=== PATIENT | female | born 1955 ===

== ENCOUNTER 2016-07-26 23:16 | Observation (INO) | payer BC, MEDICARE ==
[2016-07-26 23:29] VITALS: BMI 37.8
--- NOTE | 2016-07-26 23:37 | ED PDOC ---
Arrival/HPI - General Chief Complaint: Chest Pain Time Seen by Provider: 07/26/16 23:21 Historian: Patient - History of Present Illness Narrative History of Present Illness (Text): 07/26/16 23:36 Sena Toribio is a 60 year old female, whose past medical history includes bronchial asthma, hypertension, and cholecystectomy, who presents to the ED complaining of chest pain. Patient states she began experiencing mid-sternal chest pain radiating to her back tonight with associated shortness of breath. Patient notes symptoms are still presents, but have improved. Patient denies any fever, chills, nausea, vomiting, diarrhea, urinary symptoms, back pain, neck pain, headache, dizziness, or any other complaints. Time/Duration: Other (tonight) Symptom Onset: Gradual Symptom Course: Unchanged Activities at Onset: Rest, Light Context: Home Past Medical History - Provider Review Nursing Documentation Reviewed: Yes - Cardiac Hx Hypertension: Yes - Pulmonary Hx Asthma: Yes - Neurological Hx Neurological Disorder: No - HEENT Hx HEENT Disorder: No - Renal Hx Renal Disorder: No - Endocrine/Metabolic Hx Endocrine Disorders: No - Hematological/Oncological Hx Blood Disorders: No - Integumentary Hx Dermatological Disorder: No - Musculoskeletal/Rheumatological Hx Musculoskeletal Disorders: No - Gastrointestinal Hx Gastrointestinal Disorders: No - Genitourinary/Gynecological Hx Genitourinary Disorders: No - Psychiatric Hx Psychophysiologic Disorder: Yes Hx Anxiety: Yes Hx Bipolar Disorder: Yes Hx Substance Use: No - Surgical History Hx Section: Yes Hx Cholecystectomy: Yes Hx Orthopedic Surgery: Yes (beatrice ankles) - Anesthesia Hx Anesthesia: No Family/Social History - Physician Review Nursing Documentation Reviewed: Yes Family/Social History: No Known Family HX Smoking Status: Light Smoker < 10 Cigarettes Daily Hx Alcohol Use: No Hx Substance Use: No Allergies/Home Meds Allergies/Adverse Reactions: Allergies No Known Allergies Allergy (Verified 07/26/16 23:26) Home Medications: Home Meds Medication Instructions Recorded Confirmed Benztropine [Benztropine Mesylate] 0.5 mg PO QAM 07/26/16 07/26/16 Budesonide/Formoterol Fumarate 1 inhaler IH PRN PRN 07/26/16 07/26/16 [Symbicort 160-4.5 Mcg Inhaler] DULoxetine [Cymbalta] 60 mg PO QAM 07/26/16 07/26/16 LORazepam [Ativan] 1 mg PO Q6 07/26/16 07/26/16 Levothyroxine [Synthroid] 50 mcg PO DAILY 07/26/16 07/26/16 Pantoprazole Sodium [Protonix] 40 mg PO DAILY 07/26/16 07/26/16 Zolpidem [Ambien] 10 mg PO HS 07/26/16 07/26/16 Review of Systems - Physician Review All systems were reviewed & negative as marked: Yes - Review of Systems Constitutional: Normal. absent: Fevers Eyes: Normal ENT: Normal Respiratory: SOB Cardiovascular: Chest Pain Gastrointestinal: Normal. absent: Abdominal Pain, Diarrhea, Nausea, Vomiting Genitourinary Female: Normal. absent: Dysuria, Frequency, Hematuria, Urine Output Changes Musculoskeletal: Normal. absent: Back Pain, Neck Pain Skin: Normal. absent: Rash Neurological: Normal. absent: Headache, Dizziness Endocrine: Normal Hemo/Lymphatic: Normal Psychiatric: Normal Physical Exam Vital Signs Reviewed: Yes Vital Signs Temp Pulse Pulse Resp BP BP Pulse Ox 07/27/16 12:18 100 H 144/97 H 07/27/16 10:52 93 H 166/81 H 07/27/16 10:32 96 H 16 167/100 H 100 07/27/16 07:40 87 16 151/84 H 97 07/27/16 05:45 81 14 142/74 98 07/27/16 03:10 96 H 16 141/77 98 07/27/16 03:01 91 H 16 98 07/27/16 00:23 90 18 181/105 H 94 L 07/26/16 23:30 88 182/106 H 07/26/16 23:27 98.6 F 102 H 20 182/106 H Temperature: Afebrile Blood Pressure: Hypertensive Pulse: Regular Respiratory Rate: Normal Appearance: Positive for: Well-Appearing, Non-Toxic, Comfortable Pain Distress: None Mental Status: Positive for: Alert and Oriented X 3 - Systems Exam Head: Present: Atraumatic, Normocephalic Pupils: Present: PERRL Extroacular Muscles: Present: EOMI Conjunctiva: Present: Normal Mouth: Present: Moist Mucous Membranes Neck: Present: Normal Range of Motion Respiratory/Chest: Present: Clear to Auscultation, Good Air Exchange. No: Respiratory Distress, Accessory Muscle Use Cardiovascular: Present: Regular Rate and Rhythm, Normal S1, S2. No: Murmurs Abdomen: Present: Normal Bowel Sounds. No: Tenderness, Distention, Peritoneal Signs Back: Present: Normal Inspection Upper Extremity: Present: Normal Inspection. No: Cyanosis, Edema Lower Extremity: Present: Normal Inspection. No: Edema Neurological: Present: GCS=15, CN II-XII Intact, Speech Normal Skin: Present: Warm, Dry, Normal Color. No: Rashes Psychiatric: Present: Alert, Oriented x 3, Normal Insight, Normal Concentration Medical Decision Making ED Course and Treatment: 07/26/16 23:36 Impression: 60 year old female complaining of mid-sternal chest pain and shortness of breath tonight. Plan: -- EKG -- Chest X-ray -- Labs, cardiac enzymes -- Urinalysis -- Reassess and disposition Prior Visits: Notes and results from previous visits were reviewed. Progress Notes: Reviewed EKG, NSR at [address] LVH. Non-specific ST/T wave changes. 07/27/16 00:11 Reviewed radiology, Chest X-ray shows no active disease. 07/27/16 01:[address] Gill, who is aware and agrees with plan. Accepts and states to place pt under Dr. Gonzalez's service. Pt will go to Telemetry observation for chest pain. Pt is no acute distress. Discussed results and hospital observation plan with pt , who is aware and verbalizes understanding. - Lab Interpretations Lab Results: 07/26/16 23:50 07/26/16 23:50 Lab Results 07/27/16 01:55: Urine Color Yellow, Urine Appearance Clear, Urine pH 6.5, Ur Specific [place] 1.015, Urine Protein Negative, Urine Glucose (UA) Negative, Urine Ketones Negative, Urine Blood Negative, Urine Nitrate Negative, Urine Bilirubin Negative, Urine Urobilinogen 0.2, Ur Leukocyte Esterase Negative 07/26/16 23:50: WBC 7.6, RBC 4.81, Hgb 15.0, Hct 43.7, MCV 90.9, MCH 31.2, MCHC 34.3, RDW 13.5, Plt Count 261, MPV 11.4 H, Gran % 67.8, Lymph % (Auto) 23.1, Stanley % (Auto) 7.0 H, Eos % (Auto) 1.7, Baso % (Auto) 0.4, Gran # 5.15, Lymph # 1.8, Stanley # 0.5, Eos # 0.1, Baso # 0.03, Sodium 140, Potassium 3.4 L, Chloride 105, Carbon Dioxide 23, Anion Gap 15, BUN 9, Creatinine 0.5, Est GFR ( Amer) > 60, Est GFR (Non-Af Amer) > 60, Random Glucose 132 H, Calcium 9.0, Magnesium 2.1, Total Bilirubin 0.6, AST 22, ALT 34, Alkaline Phosphatase 103, Lactate Dehydrogenase 481, Total Creatine Kinase 86, Troponin I 0.02, Total Protein 7.4, Albumin 4.1, Globulin 3.4, Albumin/Globulin Ratio 1.2 I have reviewed the lab results: Yes - RAD Interpretation Radiology Orders: 07/26/16 23:37 CHEST PORTABLE [RAD] [employer] Correspondent: ED Physician - EKG Interpretation Interpreted by ED Physician: Yes Type: 12 lead EKG - Medication Orders Current Medication Orders: Benztropine Mesylate (Cogentin) 0.5 mg PO QAM [facility] Last Admin: 07/27/16 10:23 Dose: 0.5 MG Duloxetine HCl (Cymbalta) 60 mg PO QAM [facility] Last Admin: 07/27/16 10:23 Dose: 60 MG Levothyroxine Sodium (Synthroid) 50 mcg PO DAILY [facility] Last Admin: 07/27/16 10:23 Dose: 50 MCG Lorazepam (Ativan) 1 mg PO Q8 KALLI PRN Reason: Protocol Last Admin: 07/27/16 21:17 Dose: 1 MG Behavioural Document 07/27/16 21:17 RR (Rec: 07/27/16 21:17 [place] [facility] [id number] Maintenance Maintenance Dose Yes Re-Assess: Reassess Psych Meds Document 07/27/16 22:17 RR (Rec: 07/27/16 23:01 RR [facility] [id number] Reassess Psych Med Effective Pantoprazole Sodium (Protonix Ec Tab) 40 mg PO 0630 KALLI Zolpidem Tartrate (Ambien) 5 mg PO HS PRN PRN Reason: Insomnia Discontinued Medications Acetaminophen/Butalbital/Caffeine (Fioricet) 2 tab PO STAT STA Stop: 07/27/16 10:37 Last Admin: 07/27/16 10:52 Dose: 2 TAB Albuterol/Ipratropium (Duoneb 3 Mg/0.5 Mg (3 Ml) Ud) 3 ml IH STAT STA Stop: 07/27/16 00:10 Last Admin: 07/27/16 00:16 Dose: 3 ML Albuterol/Ipratropium (Duoneb 3 Mg/0.5 Mg (3 Ml) Ud) Confirm Administered Dose 3 ml .ROUTE .STK-MED ONE Stop: 07/27/16 00:14 Last Admin: 07/27/16 00:16 Dose: Albuterol/Ipratropium (Duoneb 3 Mg/0.5 Mg (3 Ml) Ud) 3 ml IH Q4H PRN PRN Reason: Shortness of Breath Stop: 07/27/16 05:04 Albuterol/Ipratropium (Duoneb 3 Mg/0.5 Mg (3 Ml) Ud) 3 ml IH Q6 KALLI Stop: 07/28/16 00:01 Last Admin: 07/27/16 19:25 Dose: 3 ML Amlodipine Besylate (Norvasc) 10 mg PO STAT STA Stop: 07/27/16 10:39 Last Admin: 07/27/16 10:52 Dose: 10 MG MAR Pulse and Blood Pressure Document 07/27/16 10:52 HI (Rec: 07/27/16 10:52 [id number] Pulse Pulse Rate (60-90) 93 Blood Pressure Blood Pressure (100/60-150/90) 166/81 Aspirin (Ecotrin) 325 mg PO STAT STA Stop: 07/27/16 01:06 Last Admin: 07/27/16 01:35 Dose: 325 MG Potassium Chloride (Potassium Chloride 10 Meq/100 Ml) 100 mls @ 100 mls/hr IVPB Q2H KALLI Stop: 07/27/16 13:29 Last Admin: 07/27/16 16:02 Dose: Not Given Non-Admin Reason: Patient Refused Lorazepam (Ativan) 1 mg PO Q6 KALLI PRN Reason: Protocol Last Admin: 07/27/16 12:23 Dose: 1 MG Behavioural Document 07/27/16 12:23 HI (Rec: 07/27/16 12:23 [id number] Maintenance Maintenance Dose Yes Nonmedicinal Nonmedicinal Interventions Redirect Behavior Behavior for Medication: Anxiety Re-Assess: Reassess Psych Meds Document 07/27/16 13:23 RR (Rec: 07/27/16 23:00 RR [facility] [id number] Reassess Psych Med Effective Nitroglycerin (Nitro-Bid 2% Oint) 1 ea TOP ONCE STA Stop: 07/27/16 01:06 Last Admin: 07/27/16 01:35 Dose: 1 EA Zolpidem Tartrate (Ambien) 10 mg PO HS PRN; Protocol PRN Reason: Insomnia - Scribe Statement The provider has reviewed the documentation as recorded by the Glendy Olson Provider Attestation: All medical record entries made by the Glendy were at my direction and personally dictated by me. I have reviewed the chart and agree that the record accurately reflects my personal performance of the history, physical exam, medical decision making, and the department course for this patient. I have also personally directed, reviewed, and agree with the discharge instructions and disposition. Disposition/Present on Arrival - Present on Arrival Any Indicators Present on Arrival: No History of DVT/PE: No History of Uncontrolled Diabetes: No Urinary Catheter: No History of Decub. Ulcer: No History Surgical Site Infection Following: None - Disposition Have Diagnosis and Disposition been Completed?: Yes Diagnosis: Chest pain Disposition: HOSPITALIZED Disposition Time: 01:00 Condition: FAIR
[2016-07-27] LABS: ADD MANUAL DIFF? NO
[2016-07-27 00:09] LABS: BASO # 0.03 K/mm3 (0.0-2.0); BASO % 0.4 % (0.0-3.0); EOS # 0.1 (0.0-0.7); EOS % 1.7 % (1.5-5.0); GRAN # 5.15 (1.4-6.5); GRAN % 67.8 % (50.0-68.0); HEMATOCRIT 43.7 % (36.0-48.0); LYMPH # 1.8 (1.2-3.4); LYMPH % 23.1 % (22.0-35.0); MEAN CELL VOLUME 90.9 fL (80.0-105.0); MEAN CORPUSCULAR HEMOGLOBIN 31.2 pg (25.0-35.0); MEAN CORPUSCULAR HGB CONC 34.3 g/dl (31.0-37.0); MEAN PLATELET VOLUME 11.4 fl (7.0-11.0); MONO # 0.5 (0.1-0.6); PLATELET COUNT 261 10^3/uL (120.0-450.0); RED CELL DISTRIBUTION WIDTH 13.5 % (11.5-14.5); WHITE BLOOD COUNT 7.6 10^3/ul (4.5-11.0)
[2016-07-27] MEDS ORDERED: Albuterol-Ipratrop 3 mg / 0.5 (3 ml) UD IH STA (00:09)
[2016-07-27] MEDS ORDERED: Albuterol-Ipratrop 3 mg / 0.5 (3 ml) UD ONE (00:13)
[2016-07-27 00:35] LABS: TROPONIN I 0.02 ng/mL
[2016-07-27 00:39] LABS: ALB/GLOB RATIO 1.2 (1.1-1.8); ALKALINE PHOSPHATASE 103 U/L (38-133); ALT/SGPT 34 U/L (7-56); AST/SGOT 22 U/L (15-39); BILIRUBIN,TOTAL 0.6 mg/dL (0.2-1.3); BLOOD UREA NITROGEN 9 mg/dL (7-21); CARBON DIOXIDE 23 mmol/L (21-33); CHLORIDE 105 mmol/L (95-110); GFR AFRICAN-AMERICAN > 60; GLUCOSE,RANDOM 132 mg/dL (70-110); MAGNESIUM 2.1 mg/dL (1.7-2.2); POTASSIUM 3.4 mmol/L (3.6-5.0); SODIUM 140 mmol/L (132-148); TOTAL PROTEIN 7.4 g/dL (5.8-8.3)
[2016-07-27] MEDS ORDERED: Albuterol-Ipratrop 3 mg / 0.5 (3 ml) UD IH PRN (01:03)
[2016-07-27] MEDS ORDERED: Nitroglycerin 2% Ointment Foilpak UD TOP STA (01:05)
[2016-07-27] MEDS ORDERED: Aspirin 325 mg EC Tablets PO STA (01:05)
[2016-07-27 02:10] LABS: PH,URINE 6.5 (4.7-8.0); URINE BILIRUBIN NEGATIVE (NEGATIVE); URINE BLOOD NEGATIVE (NEGATIVE); URINE GLUCOSE (UA) NEGATIVE (NEGATIVE); URINE KETONE NEGATIVE (NEGATIVE); URINE LEUKOCYTE ESTERASE NEGATIVE Leu/uL (NEGATIVE); URINE PROTEIN NEGATIVE mg/dL (<30 mg/dL); URINE UROBILINOGEN 0.2 E.U./dL (<1 E.U./dL)
[2016-07-27 02:15] LABS: URINE APPEARANCE CLEAR (CLEAR); URINE COLOR YELLOW (YELLOW)
--- NOTE | 2016-07-27 09:12 | RAD ---
HISTORY: cp COMPARISON: No prior. FINDINGS: LUNGS: No active pulmonary disease. PLEURA: No significant pleural effusion identified, no pneumothorax apparent. CARDIOVASCULAR: Normal. OSSEOUS STRUCTURES: No significant abnormalities. VISUALIZED UPPER ABDOMEN: Normal. OTHER FINDINGS: None. IMPRESSION: No active disease.
[2016-07-27] MEDS: Levothyroxine 50 MCG TAB PO SCH (10:23)
[2016-07-27] MEDS ORDERED: Apap-Butalbital-Caffeine 325-50-40mg Tab PO STA (10:36)
[2016-07-27] MEDS: Potassium Chloride 10 mEq 100 ML IVPB SCH ×2 (10:52→16:02)
--- NOTE | 2016-07-27 11:56 | CARD ---
APPROVED REPORT EKG Measurement Heart [id number] <Conclusion> Normal sinus rhythm Possible Left atrial enlargement Left ventricular hypertrophy Nonspecific T wave abnormality Prolonged QT Abnormal ECG
[2016-07-27] MEDS: Albuterol-Ipratrop 3 mg / 0.5 (3 ml) UD IH SCH ×2 (13:39→19:25)
[2016-07-27 18:37] VITALS: RESP 18
--- NOTE | 2016-07-27 22:33 | HP ---
HISTORY OF PRESENT ILLNESS: The patient is a 60-year-old who came to Emergency Room because of chest pressure, epigastric discomfort radiating towards her chest, she had a feeling as if she cannot kaleigh the. The patient states she did not eat a heavy meal last night; it included rice and beans. Denies any fever or chills. No history of nausea or vomiting, no history of previous coronary artery disea se. PAST MEDICAL HISTORY: 1. Significant for morbid obesity. 2. Bronchial asthma. 3. Hypertension. 4. Bipolar disorder. PAST SURGICAL HISTORY: Significant for cholecystectomy. ALLERGIES: The patient is not allergic to any medications. MEDICATIONS AT HOME: She is on benztropine 0.5 q.a.m. She is on Symbicort. She is taking Ativan 1 mg q. 6-8 hours, Cymbalta 60 mg daily, Ambien 10 mg at bedtime, Protonix 40 daily, levothyroxine 50 m cg daily. SOCIAL HISTORY: Denies smoking and drinking. REVIEW OF SYSTEMS: Significant for epigastric discomfort, chest discomfort radiating towards back. PHYSICAL EXAMINATION: GENERAL: She is awake and alert, communicative. VITAL SIGNS: She is afebrile, pulse 92, respirations 19, blood pressure . LUNGS: Bilateral fair airflow, no rhonchi or crackle. HEART: S1, S2 audible. No murmur. ABDOMEN: Soft, nontender, no rebound, no guarding. NEUROLOGIC: She is awake and alert, communicative. LABORATORY DATA: WBC 7.6, hemoglobin 15, hematocrit 43, platelets 261. Chemistry: Sodium 140, pota ssium 3.4, chloride 105, CO2 of 23, BUN 9, creatinine 0.5, blood sugar 132. LFTs are within normal l imits. Urinalysis is negative. EKG shows normal sinus rhythm, left atrial enlargement, left ventric ular hypertrophy, prolonged QT. ASSESSMENT: 1. Chest pain seems to be noncardiac. 2. Hypertension. 3. Hyperlipidemia. 4. Morbid obesity. 5. Electrolyte imbalance. 6. Bipolar disorder. PLAN: The patient has been started on her usual baseline medication. Start her on PPI and start her on aspirin. We will follow up serial cardiac enzymes. Cardiology consult by Dr. Givens has been requ ested and she also has some EKG changes that needs to be evaluated. Since she is on multiple psych m edications, I will also request Dr. for evaluation. Andressa Gonzalez MD cc: [id number] TT: 07/27/2016 22:32:12 mn
[2016-07-28] MEDS: Albuterol-Ipratrop 3 mg / 0.5 (3 ml) UD IH SCH (06:07)
[2016-07-28 06:29] LABS: ADD MANUAL DIFF? NO
[2016-07-28] MEDS ORDERED: Pantoprazole 40 mg EC Tab PO SCH (06:30)
[2016-07-28 06:50] LABS: BASO # 0.01 K/mm3 (0.0-2.0); BASO % 0.1 % (0.0-3.0); EOS # 0.1 (0.0-0.7); EOS % 1.7 % (1.5-5.0); GRAN # 6.06 (1.4-6.5); GRAN % 74.7 % (50.0-68.0); HEMATOCRIT 44.1 % (36.0-48.0); LYMPH # 1.4 (1.2-3.4); LYMPH % 17.3 % (22.0-35.0); MEAN CELL VOLUME 91.7 fL (80.0-105.0); MEAN CORPUSCULAR HEMOGLOBIN 30.6 pg (25.0-35.0); MEAN CORPUSCULAR HGB CONC 33.3 g/dl (31.0-37.0); MEAN PLATELET VOLUME 11.2 fl (7.0-11.0); MONO # 0.5 (0.1-0.6); MONO % 6.2 % (1.0-6.0); PLATELET COUNT 273 10^3/uL (120.0-450.0); RED CELL DISTRIBUTION WIDTH 13.7 % (11.5-14.5); WHITE BLOOD COUNT 8.1 10^3/ul (4.5-11.0)
[2016-07-28 08:02] VITALS: BP 163/109; PULSE 89; TEMP 99; O2SAT 97
[2016-07-28 08:04] LABS: ALB/GLOB RATIO 1.4 (1.1-1.8); ALKALINE PHOSPHATASE 113 U/L (38-133); ALT/SGPT 40 U/L (7-56); AST/SGOT 24 U/L (15-39); BILIRUBIN,TOTAL 0.9 mg/dL (0.2-1.3); BLOOD UREA NITROGEN 11 mg/dL (7-21); CALCIUM 9.2 mg/dL (8.4-10.5); CARBON DIOXIDE 24 mmol/L (21-33); CHLORIDE 106 mmol/L (98-107); CHOLESTEROL 258 mg/dL (130-200); GFR AFRICAN-AMERICAN > 60; GLUCOSE,RANDOM 133 mg/dL (70-110); PHOSPHOROUS 3.7 mg/dL (2.5-4.5); POTASSIUM 3.7 mmol/L (3.6-5.0); SODIUM 141 mmol/L (132-148); TOTAL PROTEIN 7.1 g/dL (5.8-8.3); URIC ACID 5.9 mg/dL (2.5-6.2)
[2016-07-28 08:14] LABS: TROPONIN I 0.02 ng/mL
[2016-07-28] MEDS: Levothyroxine 50 MCG TAB PO SCH (09:47)
--- NOTE | 2016-07-28 13:46 | CON ---
DATE: 07/28/2016 HISTORY OF PRESENT ILLNESS: The patient is a 60-year-old female admitted to the medical-ariza rgical department from ER due to a chief complaint of chest pains; found to be of a noncardiac origin . The patient has had a long history of bipolar disorder. I was asked to evaluate the patient. The patient is a reasonably good historian. She has no extreme complaints psychiatrically. The patient states she is treated at a [facility] clinic in [place] and receives Invega 150 mg IM q. 4 weeks. She is due for an injection tomorrow. PAST MEDICAL HISTORY: She has a long history of psychiatric problems. She had many psychiatric hosp italizations - the first in her 20s at a local hospital. Her last hospitalization was ____ for 5 yea rs at [facility]. She was there and states she was not guilty by reason of insanity. She re fuses to go into details. She has had other local psychiatric hospitalizations, but none since that time. The patient's other medical problems include bronchial asthma, hypertension and morbid obesity . PAST SURGICAL HISTORY: The patient has had a cholecystectomy in the past. ALLERGIES: Not allergic to any medications. CURRENT MEDICATIONS AT HOME: Include Symbicort, Cogentin 0.5 mg b.i.d., Ativan 1 mg t.i.d., Cymbalta 60 mg daily, Ambien 10 mg at bedtime, Protonix, levothyroxine. The patient, in addition to Invega, is on Sustenna once a month. The patient denies any alcohol or substance abuse. PERSONAL HISTORY: She has 2 children, 2 grandchildren. She lives with a ____, which she has had a r elationship with for a number of years. The patient has no substance abuse. CURRENT LABORATORY DATA: Her white count is 8100, hemoglobin was 14.7, platelet count 273,000. Her metabolic profile is all normal except for a random glucose of 133. Triglycerides 242, LDL cholester ol 179. The patient has a normal, clear urinalysis. The patient had a normal chest x-ray showing no active pulmonary disease. The patient's chest x-ray showed no active disease. Her electrocardiogram showed normal sinus rhythm with left atrial enlargem ent, left ventricular hypertrophy and nonspecific T waves, heart rate 95, QTC interval 464 msec. PERSONAL HISTORY: As noted, she lives with her . The patient is on social security disability. PHYSICAL EXAMINATION: VITAL SIGNS: Blood pressure 163/109, pulse 86, respirations 18 per minute and afebrile. PSYCHIATRIC MENTAL STATUS: Awake, alert, coherent, lucid, oriented x 3. Mood mildly elevated. No s uicidal ideation or psychotic symptomatology. Recent and remote memory, judgment is intact. Denies any panic or anxiety or obsessive disorder. No suicidal ideation. IMPRESSION: Bipolar disorder in partial remission, noncardiac chest pain, hypertension. She has a h istory of hypothyroidism, history of cholecystectomy. Will monitor mental status. Review psychotrop ic medicines. Aaron Rivas MD cc: [id number] TT: 07/28/2016 12:47:03 Confirmation # [id number] Dictation # [id number] mn 07/28/2016 12:45:41
--- NOTE | 2016-07-28 15:37 | CON ---
DATE: 07/28/2016 REASON FOR CONSULTATION: Chest pain, cardiac evaluation. BRIEF CLINICAL HISTORY: This is a 60-year-old female with past medical history significant for COPD, asthma, hypertension, bipolar disorder, came in with chest pain, epigastric, radiating to the chest. Denies any chest pain, dyspnea on exertion or chest pain on exertion. Denies any prior history of coronary artery disease. Denies any family history of coronary artery disease. PAST MEDICAL HISTORY: Significant for bronchial asthma, hypertension, bipolar disorder. PAST SURGICAL HISTORY: Significant for cholecystectomy. SOCIAL HISTORY: A pack to 2 packs active tobacco abuse. Denies any history of alcohol abuse. FAMILY HISTORY: Denies any family history of coronary artery disease. CURRENT MEDICATIONS: The patient is taking benztropine, Symbicort, Ativan, Ambien, Cymbalta, levothy roxine. REVIEW OF SYSTEMS: As per HPI. PHYSICAL EXAMINATION: VITAL SIGNS: Temperature afebrile, heart rate 69, blood pressure 144/____. HEENT: PERRLA. Extraocular muscles intact. NECK: Supple. No carotid bruits. No thyromegaly. CHEST: Clear to auscultation. HEART: S1, S2 regular. ABDOMEN: Soft. EXTREMITIES: Clubbing and cyanosis negative. BLOOD WORKUP: WBC of 8.1, hemoglobin 14.____, hematocrit 44.1, platelet count 273. Chemistry shows sodium ____, potassium 3.7, chloride 106, carbon dioxide 24, anion gap of 15, BUN 11, creatinine 0.6. Triglycerides 242, cholesterol 258, LDL 179, HDL 42. Troponin 0.02, negative. EKG normal sinus, w ithin normal limit. IMPRESSION: Atypical chest pain. PLAN: Given the multiple risks for coronary artery disease including diabetes, hypertension, hyperli pidemia, obesity with body mass index of 37.8 kg/m2, suggest echo and a stress test which can be done as outpatient. Discussed with Dr. Gonzalez. Discussed with the nursing staff. Discussed with the p atient. Thank you, Dr. Gonzalez, for providing the opportunity in taking care of this patient. Garett Givens MD cc:Andressa Gonzalez MD [id number] TT: 07/28/2016 15:37:42 Confirmation # [id number] Dictation # [id number] mn
--- NOTE | 2016-07-28 16:54 | DS ---
The patient is a 60-year-old seen and examined, doing well, ambulating, eating and tolerating. No na usea, vomiting, no diarrhea. Chest pain has almost resolved. PHYSICAL EXAMINATION: VITAL SIGNS: She is afebrile, pulse 89, respirations 18, blood pressure 163/109. LUNGS: Bilateral fair airflow, no rhonchi or crackle. HEART: S1, S2 audible. Regular rate and rhythm. ABDOMEN: Soft, obese, nontender, no rebound, no guarding. NEUROLOGIC: She is awake and alert, communicative. LABORATORY EXAM: WBC is 8.1, hemoglobin 14, hematocrit 44, platelet 273. Chemistry: Sodium 141, po tassium 3.7, chloride 106, CO2 28, BUN 11, creatinine 0.6, blood sugar 133, triglycerides 242. Nuha sterol is 258, LDL is 179. Urinalysis is negative. ASSESSMENT AND PLAN: 1. Noncardiac chest pain. 2. Probably peptic ulcer disease. 3. Morbid obesity. 4. Hypertension. 5. Bipolar disorder. 6. Hyperlipidemia. PLAN: This patient is clinically stable. She has no chest pain, no shortness of breath. The patien t takes Protonix at home. She is advised to continue that. She also takes a bunch of psych medicati on and she will continue that, also. She has Protonix at home that she needs to continue. She will follow with her PMD. Andressa Gonzalez MD cc: [id number] TT: 07/28/2016 16:53:59 susi
== END 2016-07-28 12:25 | disposition home or self-care (01) ==
LOC: ED 23:16 → ERH 07-27 01:02 → INTOOBSV 07-27 08:21 → OBSVTOIN 07-27 08:21 → 3RNO 07-27 12:04 → ERH 07-27 12:05 → 3RNO 07-27 12:49
PROVIDERS: ADMIT Internal Medicine; ATTEND Internal Medicine
DX: R07.89 Other chest pain (principal); E66.01 Morbid (severe) obesity due to excess calories; I10 Essential (primary) hypertension; E78.5 Hyperlipidemia, unspecified; J45.909 Unspecified asthma, uncomplicated; J44.9 Chronic obstructive pulmonary disease, unspecified; E87.8 Other disorders of electrolyte and fluid balance, not elsewhere classified; E03.9 Hypothyroidism, unspecified; F31.70 Bipolar disorder, currently in remission, most recent episode unspecified; Z72.0 Tobacco use; Z68.37 Body mass index [BMI] 37.0-37.9, adult
CPT/HCPCS: 36415; 71010; 80053; 80061; 81003; 82550; 83036; 83615; 83735; 84100; 84484; 84550; 85025; 93005; 94640; 97116; 97161; 99285; G0378; G8978; G8979; G8980; J3480

== ENCOUNTER 2016-08-26 10:29 | Inpatient (IN) | payer MEDICARE, BC ==
--- NOTE | 2016-08-26 11:02 | ED PDOC ---
Arrival/HPI - General Chief Complaint: Shortness Of Breath Time Seen by Provider: 08/26/16 10:43 Historian: Patient - History of Present Illness Narrative History of Present Illness (Text): 08/26/16 11:05 Sena Toribio is a 60 year old female, with a history of asthma, CHF, and hypertension, presents to the emergency department complaining of shortness of breath which began earlier today morning. States she took breathing treatments at home for minimal relied. Also notes of mild chest discomfort and states symptoms are similar to previous asthmatic episodes. States she was admitted to the hospital 10 days prior for similar symptoms. Denies fever, chills, headache , dizziness, nausea, vomiting, diarrhea, urinary symptoms, or any other complaints at this time. Time/Duration: 4-6 hours (today morning ) Symptom Onset: Gradual Symptom Course: Worsening Severity Level: Mild Past Medical History - Provider Review Nursing Documentation Reviewed: Yes - Cardiac Hx Congestive Heart Failure: Yes Hx Hypertension: Yes - Pulmonary Hx Asthma: Yes - Neurological Hx Neurological Disorder: No - HEENT Hx HEENT Disorder: No - Renal Hx Renal Disorder: No - Endocrine/Metabolic Hx Endocrine Disorders: No Hx Hypothyroidism: Yes - Hematological/Oncological Hx Blood Disorders: No - Integumentary Hx Dermatological Disorder: No - Musculoskeletal/Rheumatological Hx Falls: No - Gastrointestinal Hx Gastrointestinal Disorders: No - Genitourinary/Gynecological Hx Genitourinary Disorders: No - Psychiatric Hx Psychophysiologic Disorder: Yes Hx Anxiety: Yes Hx Bipolar Disorder: Yes Hx Substance Use: No - Surgical History Hx Section: Yes Hx Cholecystectomy: Yes Hx Orthopedic Surgery: Yes (Bilateral ankle reconstruction) - Anesthesia Hx Anesthesia: No Family/Social History - Physician Review Nursing Documentation Reviewed: Yes Family/Social History: No Known Family HX Smoking Status: Heavy Smoker > 10 Cigarettes Daily Hx Alcohol Use: No Hx Substance Use: No Allergies/Home Meds Allergies/Adverse Reactions: Allergies No Known Allergies Allergy (Verified 08/26/16 10:32) Home Medications: Home Meds Medication Instructions Recorded Confirmed Budesonide/Formoterol Fumarate 1 inhaler IH PRN PRN 07/26/16 08/26/16 [Symbicort 160-4.5 Mcg Inhaler] DULoxetine [Cymbalta] 60 mg PO QAM 07/26/16 08/26/16 LORazepam [Ativan] 1 mg PO Q6 PRN 07/26/16 08/26/16 Levothyroxine [Synthroid] 0.05 mg PO DAILY 07/26/16 08/26/16 Pantoprazole Sodium [Protonix] 40 mg PO DAILY 07/26/16 08/26/16 Zolpidem [Ambien] 10 mg PO HS PRN 07/26/16 08/26/16 Paliperidone Palmitate [Invega 156 mg IM Q30D 08/26/16 08/26/16 Sustenna] Review of Systems - Review of Systems Constitutional: absent: Fatigue, Fevers Eyes: absent: Vision Changes ENT: absent: Hearing Changes, Sore Throat, Sinus Congestion Respiratory: SOB. absent: Cough, Sputum Cardiovascular: Chest Pain, Edema, CARDONA. absent: Palpitations, Calf Pain Gastrointestinal: absent: Abdominal Pain, Diarrhea, Nausea, Vomiting Genitourinary Female: absent: Frequency Musculoskeletal: absent: Back Pain Skin: absent: Rash Neurological: absent: Headache, Dizziness Physical Exam - Physical Exam Narrative Physical Exam (Text): 08/26/16 11:08 Head: Atraumatic. Normocephalic. Eyes: PERRL. EOMI. Conjunctivae are not pale. ENT: Mucous membranes are moist and intact. Oropharynx is clear and symmetric. Neck: Supple. Full ROM. No JVD. No lymphadenopathy. Cardiovascular: Tachycardic with systolic murmur. Pulmonary/Chest: Tachypneic, bilateral expiratory wheezing with rhonchi, no accessory muscle usage. Abdominal: Soft and non-distended. There is no tenderness. No rebound, guarding, or rigidity. No organomegaly. Good bowel sounds. Back: No CVA tenderness. Extremities: Bilateral lower extremity edema. No cyanosis. No clubbing. Full range of motion in all extremities. No calf tenderness. Skin: Skin is warm and dry. No petechiae. No purpura. Neurological: Alert, awake, and oriented to person, place, time, and situation. Normal speech. Motor and sensory exam intact. Psychiatric: Good eye contact. Normal interaction, affect, and behavior. She understands her current medical condition and risks of smoking and was able to repeat back treatment plan and recommendations. Vital Signs Reviewed: Yes Vital Signs Temp Pulse Resp BP Pulse Ox 08/26/16 10:54 26 H 95 08/26/16 10:30 98.8 F 109 H 23 199/119 H 83 L Temperature: Afebrile Blood Pressure: Hypertensive Pulse: Tachycardic Respiratory Rate: Tachypneic Appearance: Positive for: Non-Toxic, Uncomfortable Pain Distress: Moderate Mental Status: Positive for: Alert and Oriented X 3 Medical Decision Making ED Course and Treatment: 08/26/16 11:08 Impression: A 60 year old female who presents to the emergency department complaining of shortness of breath associated with chest discomfort since earlier today morning. Differential Diagnosis include but are not limited to: Asthma exacerbation vs. CHF Plan: -- EKG -- Labs, cardiac enzymes -- Chest X-ray -- Duoneb -- Solumedrol -- Blood culture -- Urine culture -- Influenza -- Urinalysis -- Reassess and disposition Progress Notes: Patient's prior history and records reviewed. Patient continues to smoke, I have counseled on the risks. Patient on examination is in mild respiratory distress. Patient is noted to have rales and rhonchi bilaterally. Chest xray suggestive of congestive heart failure, compared to previous chest x rays. Given hypertension, nitrates and lasix ordered. She reports intermittent chest pain as well, denies past cardiac history and left AMA before cardiac workup could be completely obtained. Patient hypoxic on nasal cannula. Continues multiple nebs and steroids for likely component of COPD and CHF. No pleuritic chest pain, no acute calf pain. No prolonged travel. On re-exam, saturations on oxygen face mask 96%, less dyspneic but persistent mild respiratory distress when laying down or any exertion. Will admit to ICU for BP management in conjunction with likely CHF and asthma/ COPD. Case discussed with Dr. Gonzalez as patient recently admitted to her service, she accepts patient. 08/26/16 13:02 - Critical Care Critical Care Minutes: 30 minutes - Lab Interpretations Lab Results: 08/26/16 12:07 08/26/16 12:07 Lab Results 08/26/16 12:07: PT 10.6, INR 0.98, APTT 26.1 08/26/16 12:07: WBC 8.8, RBC 4.83, Hgb 15.3, Hct 45.7, MCV 94.6, MCH 31.7, MCHC 33.5, RDW 14.0, Plt Count 275, MPV 11.5 H, Gran % 63.3, Lymph % (Auto) 28.9, [place] % (Auto) 6.5 H, Eos % (Auto) 1.1 L, Baso % (Auto) 0.2, Gran # 5.53, Lymph # 2.5, [place] # 0.6, Eos # 0.1, Baso # 0.02 08/26/16 12:07: Sodium 141, Chloride 105, Potassium 3.9, Carbon Dioxide 26, Anion Gap 14, BUN 10, Creatinine 0.6, Est GFR ( Amer) > 60, Est GFR (Non- Af Amer) > 60, Random Glucose 115 H, Calcium 9.5, Total Bilirubin 0.7, AST 29, ALT 63 H, Alkaline Phosphatase 121, Lactate Dehydrogenase 515, Total Creatine Kinase 59, Troponin I 0.04 D, NT-Pro-B Natriuret Pep 1490 H, Total Protein 7.8 , Albumin 4.3, Globulin 3.5, Albumin/Globulin Ratio 1.2 08/26/16 12:07: pO2 35, VBG pH 7.38, VBG pCO2 48.0, VBG HCO3 28.4 H, VBG Total CO2 29.9 H, VBG O2 Sat (Calc) 74.0 H, VBG Base Excess 2.5 H, VBG Potassium 4.0, Sodium 142.0, Chloride 109.0 H, Glucose 122 H, Lactate 1.7, FiO2 21.0, Venous Blood Potassium 4.0 08/26/16 12:00: pCO2 38, pO2 46.0 L, HCO3 25.2, ABG pH 7.43, ABG Total CO2 26.4 , ABG O2 Saturation 89.1 L, ABG Base Excess 1.0, ABG Potassium 3.5 L, Sodium 142.0, Chloride 111.0 H, Glucose 130 H, Lactate 1.4, FiO2 28.0, Arterial Blood Potassium 3.5 L 08/26/16 12:00: Influenza Typ A,B (EIA) Negative for flu a/b - RAD Interpretation Radiology Orders: 08/26/16 11:04 CHEST PORTABLE [RAD] Stat Probation Counselor: Radiologist - EKG Interpretation EKG Interpretation (Text): 08/26/16 13:06 EKG at 10:56 sinus tachycardia rate of 109, possible left atrial enlargement, left ventricular hypertrophy Interpreted by ED Physician: Yes Type: 12 lead EKG - Medication Orders Current Medication Orders: Acetaminophen (Tylenol 325mg Tab) 650 mg PO Q6H PRN PRN Reason: Fever >100.4 F Albuterol/Ipratropium (Duoneb 3 Mg/0.5 Mg (3 Ml) Ud) 3 ml IH Q2H PRN PRN Reason: Shortness of Breath Albuterol/Ipratropium (Duoneb 3 Mg/0.5 Mg (3 Ml) Ud) 3 ml IH [id number] KALLI Aspirin (Aspirin Chewable) 81 mg PO DAILY [facility] Duloxetine HCl (Cymbalta) 60 mg PO QAM [facility] Furosemide (Lasix) 40 mg IVP DAILY [facility] Levothyroxine Sodium (Synthroid) 50 mcg PO DAILY [facility] Lorazepam (Ativan) 1 mg PO Q6 PRN; Protocol PRN Reason: Anxiety Methylprednisolone (Solu-Medrol) 40 mg IV Q12 [facility] Metoprolol Succinate (Toprol Xl) 25 mg PO BRK [facility] Ondansetron HCl (Zofran Inj) 4 mg IVP Q6H PRN PRN Reason: Nausea/Vomiting Pantoprazole Sodium (Protonix Ec Tab) 40 mg PO DAILY [facility] Pantoprazole Sodium (Protonix Ec Tab) 40 mg PO 0630 [facility] Zolpidem Tartrate (Ambien) 10 mg PO HS PRN; Protocol PRN Reason: Insomnia Discontinued Medications Albuterol/Ipratropium (Duoneb 3 Mg/0.5 Mg (3 Ml) Ud) 3 ml IH Q15M KALLI Stop: 08/26/16 11:46 Last Admin: 08/26/16 11:52 Dose: 3 ml Aspirin (Aspirin Chewable) 81 mg PO STAT STA Stop: 08/26/16 12:24 Last Admin: 08/26/16 12:35 Dose: 81 mg Furosemide (Lasix) 40 mg IVP ONCE ONE Stop: 08/26/16 11:48 Last Admin: 08/26/16 11:52 Dose: Furosemide (Lasix) Confirm Administered Dose 40 mg .ROUTE .STK-MED ONE Stop: 08/26/16 11:49 Last Admin: 08/26/16 11:52 Dose: 40 mg Methylprednisolone (Solu-Medrol) 125 mg IVP STAT STA Stop: 08/26/16 11:05 Last Admin: 08/26/16 11:32 Dose: 125 mg Nitroglycerin (Nitro-Bid 2% Oint) 1 ea TOP ONCE STA Stop: 08/26/16 11:54 Last Admin: 08/26/16 11:57 Dose: Nitroglycerin (Nitro-Bid 2% Oint) Confirm Administered Dose 1 ea TOP .STK-MED ONE Stop: 08/26/16 11:56 Last Admin: 08/26/16 11:57 Dose: 1 ea - Scribe Statement The provider has reviewed the documentation as recorded by the Glendy Crowell Provider Attestation: All medical record entries made by the Sethibdotty were at my direction and personally dictated by me. I have reviewed the chart and agree that the record accurately reflects my personal performance of the history, physical exam, medical decision making, and the department course for this patient. I have also personally directed, reviewed, and agree with the discharge instructions and disposition. Disposition/Present on Arrival - Present on Arrival Any Indicators Present on Arrival: No History of DVT/PE: No History of Uncontrolled Diabetes: No Urinary Catheter: No History of Decub. Ulcer: No History Surgical Site Infection Following: None - Disposition Have Diagnosis and Disposition been Completed?: Yes Diagnosis: Congestive heart failure (CHF), Chest pain, Asthma exacerbation, Hypertension Disposition: HOSPITALIZED Disposition Time: 11:50 Patient Plan: Admission, ICU Condition: CRITICAL Discharge Instructions (ExitCare): Heart Failure (ED), Chest Pain (ED) Referrals: Shadi Altamirano MD [Primary Care Provider] - Follow up with primary
[2016-08-26] MEDS: Albuterol-Ipratrop 3 mg / 0.5 (3 ml) UD IH SCH ×5 (11:23→20:00)
--- NOTE | 2016-08-26 11:34 | RAD ---
HISTORY: Shortness of breath COMPARISON: 08/16/2016 FINDINGS: LUNGS: Increased pulmonary venous congestion -acute on chronic inferred lateral right fissural fluid. Nodular opacity left mid lung. Nodular infiltrate versus mass versus coalescent pulmonary edema are considerations. Mild right hilar prominence -vascular engorgement versus other potential pathology PLEURA: No significant pleural effusion identified, there is right fissural fluid suggested. No pneumothorax apparent. CARDIOVASCULAR: Cardiomegaly. Prominent central hilar structures -at minimum central venous engorgement suggested. OSSEOUS STRUCTURES: No significant abnormalities. VISUALIZED UPPER ABDOMEN: Normal. OTHER FINDINGS: None. IMPRESSION: Cardiomegaly with pulmonary venous congestion findings consistent with CHF. Right fissural fluid. Additional pathology -left mid lung zone nodular opacity -coalescent pulmonary edema versus nodular infiltrate are some other considerations. . Follow-up chest x-ray imaging after therapy. Possible later CT chest with contrast enhancement recommended.
[2016-08-26] MEDS ORDERED: Nitroglycerin 2% Ointment Foilpak UD TOP STA (11:53)
[2016-08-26] MEDS ORDERED: Nitroglycerin 2% Ointment Foilpak UD TOP ONE (11:55)
[2016-08-26 12:09] LABS: ADD MANUAL DIFF? NO
[2016-08-26 12:14] LABS: BASO # 0.02 K/mm3 (0.0-2.0); BASO % 0.2 % (0.0-3.0); EOS # 0.1 (0.0-0.7); EOS % 1.1 % (1.5-5.0); GRAN # 5.53 (1.4-6.5); GRAN % 63.3 % (50.0-68.0); HEMATOCRIT 45.7 % (36.0-48.0); LYMPH # 2.5 (1.2-3.4); LYMPH % 28.9 % (22.0-35.0); MEAN CELL VOLUME 94.6 fL (80.0-105.0); MEAN CORPUSCULAR HEMOGLOBIN 31.7 pg (25.0-35.0); MEAN CORPUSCULAR HGB CONC 33.5 g/dl (31.0-37.0); MEAN PLATELET VOLUME 11.5 fl (7.0-11.0); MONO # 0.6 (0.1-0.6); MONO % 6.5 % (1.0-6.0); PLATELET COUNT 275 10^3/uL (120.0-450.0); VENOUS BLOOD GAS BASE EXCESS 2.5 mmol/L (0.0-2.0); VENOUS BLOOD PH 7.38 (7.32-7.43); WHITE BLOOD COUNT 8.8 10^3/ul (4.5-11.0)
[2016-08-26 12:22] LABS: ARTERIAL BLOOD GAS HCO3 25.2 mmol/L (21-28); ARTERIAL BLOOD GAS PH 7.43 (7.35-7.45)
[2016-08-26 12:28] LABS: ALB/GLOB RATIO 1.2 (1.1-1.8); ALKALINE PHOSPHATASE 121 U/L (38-133); ALT/SGPT 63 U/L (7-56); AST/SGOT 29 U/L (15-39); BILIRUBIN,TOTAL 0.7 mg/dL (0.2-1.3); BLOOD UREA NITROGEN 10 mg/dL (7-21); CALCIUM 9.5 mg/dL (8.4-10.5); CARBON DIOXIDE 26 mmol/L (21-33); CHLORIDE 105 mmol/L (98-107); GFR AFRICAN-AMERICAN > 60; GLUCOSE,RANDOM 115 mg/dL (70-110); POTASSIUM 3.9 mmol/L (3.6-5.0); SODIUM 141 mmol/L (132-148); TOTAL PROTEIN 7.8 g/dL (5.8-8.3)
[2016-08-26 12:30] LABS: INR 0.98 (0.93-1.08); PARTIAL THROMBOPLASTIN TIME 26.1 Seconds (23.7-30.8)
[2016-08-26 12:38] LABS: TROPONIN I 0.04 ng/mL
[2016-08-26 12:44] LABS: URINE BILIRUBIN NEGATIVE (NEGATIVE); URINE BLOOD NEGATIVE (NEGATIVE); URINE GLUCOSE (UA) NEGATIVE (NEGATIVE); URINE KETONE NEGATIVE (NEGATIVE); URINE LEUKOCYTE ESTERASE NEGATIVE Leu/uL (NEGATIVE); URINE PROTEIN NEGATIVE mg/dL (<30 mg/dL); URINE UROBILINOGEN 0.2 E.U./dL (<1 E.U./dL)
[2016-08-26] MEDS ORDERED: Albuterol-Ipratrop 3 mg / 0.5 (3 ml) UD IH PRN (12:55)
[2016-08-26 13:02] LABS: URINE APPEARANCE CLEAR (CLEAR); URINE COLOR YELLOW (YELLOW)
--- NOTE | 2016-08-26 13:16 | CP.PCM.CON ---
<Tony Barber - Last Filed: 08/26/16 13:45> History of Present Illness - History of Present Illness History of Present Illness: 60 y/o F with PMH of HTN, hypothyroidism, Bipolar disorder, asthma, and DM presents to the ED for shortness of breath. Pt has been here twice in the past month for similar symptoms, but signed out AMA both times. Pt states this morning she woke up and began having worsening shortness of breath. At this time , she used her symbicort inhaler, but it did not help her. SOB is worse with exertion. Pt then called the ambulance to bring her to the hospital. Pt admits to having a productive cough and bringing up white phlegm. Otherwise, pt denies any recent illnesses or changes to medications. Pt states she is compliant with all home medications. In the ED, pt received methylprednisone and lasix, along with a duoneb treatment. Pt states she felt much better after the medications. Pt denies CP, N/V/D, fever, chills. PMH: HTN, hypothyroidism, Bipolar disorder, asthma, and DM Surgical Hx: B/L ankle fracture, back surgery for herniated disc Family Hx: Noncontributory Medications: See MAR Allergies: NKDA Review of Systems - Constitutional Constitutional: absent: Fatigue, Fever - EENT Eyes: absent: Blurred Vision, Change in Vision - Cardiovascular Cardiovascular: absent: Chest Pain, Irregular Heart Rhythm - Respiratory Respiratory: Cough, Dyspnea, Dyspnea on Exertion. absent: Wheezing - Gastrointestinal Gastrointestinal: absent: Diarrhea, Nausea, Vomiting - Genitourinary Genitourinary: absent: Difficulty Urinating, Dysuria, Hematuria - Musculoskeletal Musculoskeletal: absent: Back Pain, Myalgias - Integumentary Integumentary: absent: New Lesions, Rash - Neurological Neurological: absent: Numbness, Syncope, Tingling - Psychiatric Psychiatric: Anxiety. absent: Depression Past Patient History - Past Social History Smoking Status: Heavy Smoker > 10 Cigarettes Daily - CARDIAC Hx Congestive Heart Failure: Yes Hx Hypertension: Yes - PULMONARY Hx Asthma: Yes - NEUROLOGICAL Hx Neurological Disorder: No - HEENT Hx HEENT Problems: No - RENAL Hx Chronic Kidney Disease: No - ENDOCRINE/METABOLIC Hx Endocrine Disorders: No Hx Hypothyroidism: Yes - HEMATOLOGICAL/ONCOLOGICAL Hx Blood Disorders: No - INTEGUMENTARY Hx Dermatological Problems: No - MUSCULOSKELETAL/RHEUMATOLOGICAL Hx Falls: No - GASTROINTESTINAL Hx Gastrointestinal Disorders: No - GENITOURINARY/GYNECOLOGICAL Hx Genitourinary Disorders: No - PSYCHIATRIC Hx Psychophysiologic Disorder: Yes Hx Anxiety: Yes Hx Bipolar Disorder: Yes Hx Substance Use: No - SURGICAL HISTORY Hx Section: Yes Hx Cholecystectomy: Yes Hx Orthopedic Surgery: Yes (Bilateral ankle reconstruction) - ANESTHESIA Hx Anesthesia: No Meds Allergies/Adverse Reactions: Allergies Allergy/AdvReac Type Severity Reaction Status Date / Time No Known Allergies Allergy Verified 08/26/16 10:32 - Medications Medications: Current Medications Acetaminophen (Tylenol 325mg Tab) 650 mg PO Q6H PRN PRN Reason: Fever >100.4 F Albuterol/Ipratropium (Duoneb 3 Mg/0.5 Mg (3 Ml) Ud) 3 ml IH Q2H PRN PRN Reason: Shortness of Breath Albuterol/Ipratropium (Duoneb 3 Mg/0.5 Mg (3 Ml) Ud) 3 ml IH [id number] KALLI Aspirin (Aspirin Chewable) 81 mg PO DAILY [facility] Duloxetine HCl (Cymbalta) 60 mg PO QAM [facility] Furosemide (Lasix) 40 mg IVP DAILY [facility] Levothyroxine Sodium (Synthroid) 50 mcg PO DAILY [facility] Lorazepam (Ativan) 1 mg PO Q6 PRN; Protocol PRN Reason: Anxiety Methylprednisolone (Solu-Medrol) 40 mg IV Q12 [facility] Metoprolol Succinate (Toprol Xl) 25 mg PO BRK [facility] Ondansetron HCl (Zofran Inj) 4 mg IVP Q6H PRN PRN Reason: Nausea/Vomiting Pantoprazole Sodium (Protonix Ec Tab) 40 mg PO 0630 [facility] Zolpidem Tartrate (Ambien) 5 mg PO HS PRN; Protocol PRN Reason: Insomnia Physical Exam - Constitutional Appears: Well, No Acute Distress - Head Exam Head Exam: ATRAUMATIC, NORMAL INSPECTION, NORMOCEPHALIC - Eye Exam Eye Exam: EOMI, Normal appearance, PERRL - ENT Exam ENT Exam: Mucous Membranes Moist, Normal Exam - Neck Exam Neck exam: Positive for: Normal Inspection. Negative for: Lymphadenopathy - Respiratory Exam Respiratory Exam: Decreased Breath Sounds, Rales (b/l), Rhonchi. absent: Wheezes - Cardiovascular Exam Cardiovascular Exam: RRR, +S1, +S2 - GI/Abdominal Exam GI & Abdominal Exam: Normal Bowel Sounds, Soft. absent: Tenderness - Extremities Exam Extremities exam: Positive for: pedal edema (+1). Negative for: calf tenderness - Neurological Exam Neurological exam: Alert, CN II-XII Intact, Oriented x3 - Psychiatric Exam Psychiatric exam: Normal Affect, Normal Mood - Skin Skin Exam: Intact, Normal Color, Warm Results - Vital Signs Recent Vital Signs: Last Vital Signs Temp 98.8 F 08/26/16 10:30 Pulse 109 H 08/26/16 10:30 Resp 26 H 08/26/16 10:54 BP 199/119 H 08/26/16 10:30 Pulse Ox 95 08/26/16 10:54 - Labs Result Diagrams: 08/26/16 12:07 08/26/16 12:07 Labs: Laboratory Results - last 24 hr 08/26/16 08/26/16 08/26/16 12:00 12:00 12:07 WBC RBC Hgb Hct MCV MCH MCHC RDW Plt Count MPV Gran % Lymph % (Auto) [place] % (Auto) Eos % (Auto) Baso % (Auto) Gran # Lymph # [place] # Eos # Baso # PT INR APTT pCO2 38 pO2 46.0 L 35 HCO3 25.2 ABG pH 7.43 ABG Total CO2 26.4 ABG O2 Saturation 89.1 L ABG Base Excess 1.0 ABG Potassium 3.5 L VBG pH 7.38 VBG pCO2 48.0 VBG HCO3 28.4 H VBG Total CO2 29.9 H VBG O2 Sat (Calc) 74.0 H VBG Base Excess 2.5 H VBG Potassium 4.0 Sodium 142.0 142.0 Chloride 111.0 H 109.0 H Glucose 130 H 122 H Lactate 1.4 1.7 FiO2 28.0 21.0 Potassium Carbon Dioxide Anion Gap BUN Creatinine Est GFR ( Amer) Est GFR (Non-Af Amer) Random Glucose Calcium Total Bilirubin AST ALT Alkaline Phosphatase Lactate Dehydrogenase Total Creatine Kinase Troponin I NT-Pro-B Natriuret Pep Total Protein Albumin Globulin Albumin/Globulin Ratio Arterial Blood Potassium 3.5 L Venous Blood Potassium 4.0 Urine Color Urine Appearance Urine pH Ur Specific [place] Urine Protein Urine Glucose (UA) Urine Ketones Urine Blood Urine Nitrate Urine Bilirubin Urine Urobilinogen Ur Leukocyte Esterase Influenza Typ A,B (EIA) Negative for flu a/b 08/26/16 08/26/16 08/26/16 12:07 12:07 12:07 WBC 8.8 RBC 4.83 Hgb 15.3 Hct 45.7 MCV 94.6 MCH 31.7 MCHC 33.5 RDW 14.0 Plt Count 275 MPV 11.5 H Gran % 63.3 Lymph % (Auto) 28.9 [place] % (Auto) 6.5 H Eos % (Auto) 1.1 L Baso % (Auto) 0.2 Gran # 5.53 Lymph # 2.5 [place] # 0.6 Eos # 0.1 Baso # 0.02 PT 10.6 INR 0.98 APTT 26.1 pCO2 pO2 HCO3 ABG pH ABG Total CO2 ABG O2 Saturation ABG Base Excess ABG Potassium VBG pH VBG pCO2 VBG HCO3 VBG Total CO2 VBG O2 Sat (Calc) VBG Base Excess VBG Potassium Sodium 141 Chloride 105 Glucose Lactate FiO2 Potassium 3.9 Carbon Dioxide 26 Anion Gap 14 BUN 10 Creatinine 0.6 Est GFR ( Amer) > 60 Est GFR (Non-Af Amer) > 60 Random Glucose 115 H Calcium 9.5 Total Bilirubin 0.7 AST 29 ALT 63 H Alkaline Phosphatase 121 Lactate Dehydrogenase 515 Total Creatine Kinase 59 Troponin I 0.04 D NT-Pro-B Natriuret Pep 1490 H Total Protein 7.8 Albumin 4.3 Globulin 3.5 Albumin/Globulin Ratio 1.2 Arterial Blood Potassium Venous Blood Potassium Urine Color Urine Appearance Urine pH Ur Specific [place] Urine Protein Urine Glucose (UA) Urine Ketones Urine Blood Urine Nitrate Urine Bilirubin Urine Urobilinogen Ur Leukocyte Esterase Influenza Typ A,B (EIA) 08/26/16 12:30 WBC RBC Hgb Hct MCV MCH MCHC RDW Plt Count MPV Gran % Lymph % (Auto) [place] % (Auto) Eos % (Auto) Baso % (Auto) Gran # Lymph # [place] # Eos # Baso # PT INR APTT pCO2 pO2 HCO3 ABG pH ABG Total CO2 ABG O2 Saturation ABG Base Excess ABG Potassium VBG pH VBG pCO2 VBG HCO3 VBG Total CO2 VBG O2 Sat (Calc) VBG Base Excess VBG Potassium Sodium Chloride Glucose Lactate FiO2 Potassium Carbon Dioxide Anion Gap BUN Creatinine Est GFR ( Amer) Est GFR (Non-Af Amer) Random Glucose Calcium Total Bilirubin AST ALT Alkaline Phosphatase Lactate Dehydrogenase Total Creatine Kinase Troponin I NT-Pro-B Natriuret Pep Total Protein Albumin Globulin Albumin/Globulin Ratio Arterial Blood Potassium Venous Blood Potassium Urine Color Yellow Urine Appearance Clear Urine pH 6.0 Ur Specific [place] 1.010 Urine Protein Negative Urine Glucose (UA) Negative Urine Ketones Negative Urine Blood Negative Urine Nitrate Negative Urine Bilirubin Negative Urine Urobilinogen 0.2 Ur Leukocyte Esterase Negative Influenza Typ A,B (EIA) Assessment & Plan - Assessment and Plan (Free Text) Plan: 60 y/o F with PMH of HTN, hypothyroidism, Bipolar disorder, asthma, and DM presents with likely CHF exacerbation. Pt status improving a great deal since arrival to the ED. Pt should continue diuresis at this time. Pt will be placed on home HTN medication to help with elevated BP in the ED, although pt improved after receiving nitroglycerin. Pt will also benefit from receiving an echocardiogram to evaluate heart function, as the patient did not follow up on an outpatient basis after her last hospital visit. The patient does not meet ICU criteria and should be admitted to telemetry. If patient begins to worsen, ICU will reevaluate the patient for admission to the unit. Neuro: AAOx3 Monitor for worsening mental status Cardio: Hypertensive previously, now stable Continue home HTN medication Consider echocardiogram Hemodynamically stable Maintain MAP >65 Pulm: Continue duonebs as needed Continue lasix to help with respiratory status Maintain O2 sat 90% GI: Normal diet Protonix Nephro: Monitor K+ on lasix Replenish electrolytes as needed Maintain euvolemia Endo: Consider HgA1c Maintain euglycemia Heme/ID: Afebrile, no leukocytosis Maintain normothermia PPX: Heparin Protonix Seen, reviewed, and discussed with attending Sunil, PGY-1 <Kalee HAMEED,Bernarda H - Last Filed: 08/26/16 14:52> Meds - Medications Medications: Current Medications Acetaminophen (Tylenol 325mg Tab) 650 mg PO Q6H PRN PRN Reason: Fever >100.4 F Albuterol/Ipratropium (Duoneb 3 Mg/0.5 Mg (3 Ml) Ud) 3 ml IH Q2H PRN PRN Reason: Shortness of Breath Albuterol/Ipratropium (Duoneb 3 Mg/0.5 Mg (3 Ml) Ud) 3 ml IH [id number] KALLI Aspirin (Aspirin Chewable) 81 mg PO DAILY K[facility]I Last Admin: 08/26/16 13:17 Dose: Not Given Duloxetine HCl (Cymbalta) 60 mg PO QAM [facility] Furosemide (Lasix) 40 mg IVP DAILY [facility] Levothyroxine Sodium (Synthroid) 50 mcg PO DAILY [facility] Lorazepam (Ativan) 1 mg PO Q6 PRN; Protocol PRN Reason: Anxiety Methylprednisolone (Solu-Medrol) 40 mg IV Q12 K[facility]I Metoprolol Succinate (Toprol Xl) 25 mg PO BRK [facility] Ondansetron HCl (Zofran Inj) 4 mg IVP Q6H PRN PRN Reason: Nausea/Vomiting Pantoprazole Sodium (Protonix Ec Tab) 40 mg PO 0630 [facility] Zolpidem Tartrate (Ambien) 5 mg PO HS PRN; Protocol PRN Reason: Insomnia Results - Vital Signs Recent Vital Signs: Last Vital Signs Temp 98.8 F 08/26/16 10:30 Pulse 100 H 08/26/16 14:00 Resp 24 08/26/16 14:00 BP 141/84 08/26/16 14:00 Pulse Ox 94 L 08/26/16 14:00 - Labs Result Diagrams: 08/26/16 12:07 08/26/16 12:07 Attending/Attestation - Attestation I have personally seen and examined this patient.: Yes I have fully participated in the care of the patient.: Yes I have reviewed all pertinent clinical information: Yes Notes (Text): 08/26/16 14:50 60 y/o F seen in the ER for SOB Consulted for SOB SOB , likely from increased PVC as seen on the cxr and clinical findings of crackles and lower ext pitting edema. Pt has been non compliant with medications and continues to smoke . Increased water intake and no diuretics given at home on leaving AMA. In the ER received Lasix, nebulizers x 2 and oxygen. Improved clinically and currently speaking in full sentences. Would restart b-blockers, marjorie I for BP control. ECHO needed to evaluate for CHF. HX of COPD and active smoking, would need albuterol/ ipratropium q4hrs. DVT p Heparin sq TID cc time 55 min. If clinical status worsens, please call the ICU back.
[2016-08-26 16:57] LABS: ARTERIAL BLOOD GAS HCO3 27.2 mmol/L (21-28); ARTERIAL BLOOD GAS PH 7.39 (7.35-7.45)
[2016-08-26] MEDS: Enoxaparin 40 mg Syringe SC SCH (17:34)
[2016-08-26 18:12] VITALS: BMI 36.4
[2016-08-26] MEDS ORDERED: Potassium Chloride 20 mEq ER Tab PO ONE (18:43)
--- NOTE | 2016-08-26 18:45 | CARD ---
APPROVED REPORT EKG Measurement Heart [id number] <Conclusion> Sinus tachycardia Possible Left atrial enlargement Abnormal QRS-T angle, consider primary T wave abnormality Abnormal ECG
[2016-08-26 20:38] LABS: BLOOD UREA NITROGEN 13 mg/dL (7-21); CALCIUM 9.4 mg/dL (8.4-10.5); CARBON DIOXIDE 24 mmol/L (21-33); CHLORIDE 98 mmol/L (98-107); GFR AFRICAN-AMERICAN > 60; POTASSIUM 3.6 mmol/L (3.6-5.0); SODIUM 138 mmol/L (132-148)
[2016-08-26 20:43] LABS: GLUCOSE,RANDOM 358 mg/dL (70-110)
[2016-08-26 20:51] LABS: TROPONIN I 0.02 ng/mL
[2016-08-26] MEDS: MethylPREDNISolone 40 mg Vial IV SCH (22:14)
[2016-08-26 22:59] LABS: VENOUS BLOOD GAS BASE EXCESS 3.4 mmol/L (0.0-2.0); VENOUS BLOOD PH 7.42 (7.32-7.43)
--- NOTE | 2016-08-26 23:23 | HP ---
HISTORY OF PRESENT ILLNESS: The patient is a 60-year-old morbidly obese female who came to Emergency Room because of increasing shortness of breath. The patient recently came with similar sym ptoms on 08/16. She was about to be admitted, but she signed against medical advice, so I never got a chance to see her. The patient states that she has not been feeling well since then, complained of increasing shortness of breath, unable to catch breath even walking small distance. Denies any feve r or chills. No history of hemoptysis, no hematemesis, no recent travel abroad. The patient states she has been using her inhaler and Symbicort, but that was not helping, so she called ambulance and s he was brought to Emergency Room. She was given multiple nebulizer treatments. She remained hypoxic on room air, so she was given nonrebreathing mask. PAST MEDICAL HISTORY: Significant for: 1. Hypertension. 2. History of asthma. 3. Non-insulin dependent diabetes. 4. Bipolar disorder. 5. Hypothyroidism. PAST SURGICAL HISTORY: Significant for: 1. Bilateral ankle fracture. 2. History of partial diskectomy for chronic back pain. ALLERGIES: She is not allergic to any medications. MEDICATIONS AT HOME: She is on Ambien 10 mg at bedtime, levothyroxine 50 mcg daily, Cymbalta 60 mg i n the morning, Protonix 40 daily, Ativan 1 mg q. 6, and she is on Invega Sustenna. SOCIAL HISTORY: She does admit to smoking up until she got sick. REVIEW OF SYSTEMS: Significant for shortness of breath and scanty cough. PHYSICAL EXAMINATION: GENERAL: She is sitting in bed, seen in ER bed 2. VITAL SIGNS: She is afebrile, pulse 98, respirations 26 with shallow labored breathing, pulse ox 92% . LUNGS: Bilateral diffusely decreased breath sounds. HEART: S1, S2 audible. Tachycardic. ABDOMEN: Soft, very obese, nontender, no rebound, no guarding. NEUROLOGIC: The patient is awake and alert, communicative. Moves all extremities. LABORATORY DATA: WBC 8.8, hemoglobin 15, hematocrit 45, platelet of 275. PT 10.6, INR 0.98. Chemis try: Sodium 141, potassium 3.9, chloride 105, CO2 of 26, BUN 10, creatinine 0.6, blood sugar 115. H er ABG: pH is 7.43, pO2 of 46, pCO2 of 38 with pulse ox 89%. She had x-ray chest done that is negat tanika for any infiltrate. ASSESSMENT: 1. Morbid obesity. 2. . 3. Cardiomegaly with congestive heart failure. 4. Morbid obesity. 5. Asthmatic bronchitis. 6. Bipolar disorder. 7. Hypothyroidism. PLAN: We will diurese the patient. Continue aspirin 81 daily. We will continue her Cymbalta as she takes as outpatient. Continue her on Lasix and Lipitor. Dr. Givens's input noted. Plan for ca rdiac cath in a.m. The patient is being admitted in ICU. Andressa Gonzalez MD cc: [phone] TT: 08/26/2016 23:22:43 sd
[2016-08-27] MEDS: Albuterol-Ipratrop 3 mg / 0.5 (3 ml) UD IH SCH ×4 (01:45→20:35)
[2016-08-27] MEDS: Pantoprazole 40 mg EC Tab PO SCH (06:08)
--- NOTE | 2016-08-27 06:24 | CON ---
DATE: 08/26/2016 REASON FOR CONSULTATION: Rule out CHF, etiology not clear. BRIEF CLINICAL HISTORY: This is a 60-year-old obese female with a body mass index of 38.7 kg/m2, his tory of asthma, history of CHF, hypertension. This is the third ER visit in recent 2 weeks' duration , came in with a complaint of shortness of breath. Prior to that, patient came in and signed out AMA . The patient says that she woke up with shortness of breath, took some Proventil treatment, did not get better. PAST MEDICAL HISTORY: Significant for asthma. Active tobacco abuse, 2 packs a day, still actively s moking, history of obesity, history of depression, bipolar disorder, diabetes, hypothyroidism, and ob esity. PAST SURGICAL HISTORY: Bilateral ankle fracture, back surgery for herniated disk. FAMILY HISTORY: Noncontributory. No history of coronary artery disease. Denies any chest pain. CURRENT MEDICATIONS: The patient is taking at home: Ambien, Protonix, levothyroxine, Ativan, ____, Symbicort. ALLERGIES: No known drug allergies. REVIEW OF SYSTEMS: As per HPI, negative except the HPI. PHYSICAL EXAMINATION: VITAL SIGNS: Temperature afebrile, heart rate 94, blood pressure 130/78. HEENT: PERRLA. Extraocular muscles intact. NECK: Supple. No carotid bruits. No thyromegaly. CHEST: Clear to auscultation. HEART: S1, S2 regular. ABDOMEN: Soft. EXTREMITIES: Clubbing and cyanosis negative. BLOOD WORKUP: As follows: WBC 8.8, hemoglobin 15.3, hematocrit 45.7 and platelet count 275. Chemis try shows sodium 141, potassium 3.9, chloride 105, carbon dioxide 26, anion gap of 14, BUN 10, creati nine 0.6. BNP is 1490. Chest x-ray consistent with CHF. Troponin 0.04. IMPRESSION: Acute decompensated congestive heart failure, etiology not clear, diabetes, obesity, hyp ertension, hyperlipidemia, hypothyroidism. RECOMMENDATION: We will get echo. Once she gets diuresed, we will consider stress test to rule out any ischemic etiology for CHF, rule out coronary artery disease. Discussed with the patient. The darnell keyana came in twice and signed out AMA, scheduled for outpatient stress test, but so far, patient did not show up. We will follow with you. Thank you, Dr. Gonzalez, for providing us opportunity in taking care of the patient. We will also get the lipid profile, TSH and we will get DVT prophylaxis. We will follow with you. Garett Givens MD cc: [id number] TT: 08/27/2016 06:24:28 Confirmation # [id number] Dictation # [id number] tn
[2016-08-27 06:27] LABS: ADD MANUAL DIFF? NO
[2016-08-27 06:37] LABS: GRAN # 7.78 (1.4-6.5); GRAN % 91.1 % (50.0-68.0); HEMATOCRIT 42.7 % (36.0-48.0); LYMPH # 0.6 (1.2-3.4); MEAN CORPUSCULAR HEMOGLOBIN 30.3 pg (25.0-35.0); MEAN CORPUSCULAR HGB CONC 32.6 g/dl (31.0-37.0); MEAN PLATELET VOLUME 11.1 fl (7.0-11.0); MONO # 0.2 (0.1-0.6); MONO % 1.9 % (1.0-6.0); PLATELET COUNT 289 10^3/uL (120.0-450.0); RED CELL DISTRIBUTION WIDTH 13.7 % (11.5-14.5); WHITE BLOOD COUNT 8.5 10^3/ul (4.5-11.0)
[2016-08-27 06:50] LABS: ALB/GLOB RATIO 1.3 (1.1-1.8); ALKALINE PHOSPHATASE 100 U/L (38-133); ALT/SGPT 48 U/L (7-56); AST/SGOT 20 U/L (15-39); BILIRUBIN,TOTAL 0.8 mg/dL (0.2-1.3); BLOOD UREA NITROGEN 19 mg/dL (7-21); CALCIUM 9.5 mg/dL (8.4-10.5); CARBON DIOXIDE 26 mmol/L (21-33); CHLORIDE 102 mmol/L (98-107); CHOLESTEROL 251 mg/dL (130-200); GFR AFRICAN-AMERICAN > 60; GLUCOSE,RANDOM 197 mg/dL (70-110); MAGNESIUM 2.2 mg/dL (1.7-2.2); PHOSPHOROUS 4.2 mg/dL (2.5-4.5); POTASSIUM 3.9 mmol/L (3.6-5.0); SODIUM 141 mmol/L (132-148); TOTAL PROTEIN 7.5 g/dL (5.8-8.3)
[2016-08-27] MEDS ORDERED: Metoprolol Succinate 25 mg XL Tab PO SCH (08:00)
[2016-08-27 08:13] LABS: ARTERIAL BLOOD GAS HCO3 25.4 mmol/L (21-28); ARTERIAL BLOOD GAS PH 7.39 (7.35-7.45)
--- NOTE | 2016-08-27 08:26 | RAD ---
HISTORY: Comparison to previous COMPARISON: Earlier same day FINDINGS: LUNGS: There is significant improvement in the vascular in interstitial congestion seen previously. PLEURA: No significant pleural effusion identified, no pneumothorax apparent. CARDIOVASCULAR: Moderate cardiomegaly OSSEOUS STRUCTURES: No significant abnormalities. VISUALIZED UPPER ABDOMEN: Normal. OTHER FINDINGS: None. IMPRESSION: Improved CHF
--- NOTE | 2016-08-27 09:09 | US ---
HISTORY: Leg pain and swelling. Evaluate for DVT PHYSICIAN(S): Jai Isbell MD. TECHNIQUE: Duplex sonography and color-flow Doppler with graded compression were used to evaluate the deep venous systems of both lower extremities. FINDINGS: The visualized deep venous systems of both lower extremities are sonographically normal and compressible. Normal wave forms and augmentation are seen. There is no sonographic evidence for deep venous thrombosis in the visualized segments of both lower extremities. IMPRESSION: No sonographic evidence for deep venous thrombosis in the visualized segments of both lower extremities.
--- NOTE | 2016-08-27 09:09 | PN ---
DATE: 08/27/2016 The patient seen and examined at bedside. She is much more comfortable. She is talking full sentences. She is not in respiratory or otherwise distress. Her FIO2 went down from 80% to 50% and her oxygen saturation remains the same, 94%. PHYSICAL EXAMINATION: VITAL SIGNS: Heart rate 72, blood pressure 128/69, oxygen saturation 94%, respiratory rate 19. HEAD AND NECK: Atraumatic. LUNGS: Clear to auscultation bilaterally. HEART: Regular rate and rhythm. S1, S2 normal. ABDOMEN: Soft, nontender, nondistended. MUSCULOSKELETAL: No C/C/E. NEUROLOGIC: The patient moves all extremities spontaneously. SKIN: Moist. PSYCHIATRIC: The patient is alert and oriented x 3. LABORATORY DATA: WBC 8.5, hemoglobin 13.9, platelet count 289. Sodium 141, potassium 3.9, chloride 102, carbon dioxide 26, BUN 19, creatinine 0.6, glucose 197, cholesterol 251, LDL 163. MEDICATIONS: Tylenol p.r.n., DuoNeb p.r.n., DuoNeb every 6 hours, aspirin, Lipitor, Plavix, Cymbalta, Lovenox 40 mg subQ daily, Lasix 40 mg daily, Synthroid, Ativan p.r.n., Solu-Medrol 40 mg IV q. 12, metoprolol, Zofran p.r.n. , Protonix, Ambien p.r.n. ASSESSMENT AND PLAN: This is a 60-year-old lady with history of uncontrolled asthma who presented with increased shortness of breath and some vascular congestion on chest x-ray. As this patient has some cardiovascular risk factors , concern was raised about potential cardiac etiology of her symptoms, despite troponin x 2 negative and lack of specific ischemic changes on EKG. Echocardiogram was ordered. ProBNP was moderately elevated and the patient is going for cardiac catheterization. The patient is on cardiac regimen and whether to keep unchanged, stopped on modified will depend on results of the cardiac catheterization. If cardiac cath is negative for CAD and symptoms persist, pendulum would swing toward potential pulmonary etiology--e.g. asthma exacerbation. In that case, the patient will need steroid taper at present time and continue with ICS/LABA which patient is on at home after discharge, with increment in dosage. The patient is snoring at night and is obese which are risk factor for obstructive sleep apnea; thus, obtaining polysomnography upon discharged is indicated. If obstructive sleep apnea present and is treated , it may also positively affect asthma control. Infection prophylaxis with vaccination would be also indicated. Pulmonary rehab if otherwise not contraindicated would be indicated after discharge as well. Follow up with pulmonary doctor within 7 days of discharge would be indicated as well. Education about inhaler use and difference between rescue inhalers and maintenance Rx inhalers will be given. We will continue with deep venous thrombosis and gastrointestinal prophylaxis. ccm time 40 min Travon Shaffer MD cc: [id number] TT: 08/27/2016 09:09:21 Confirmation # [id number] Dictation # [id number] tn MTDD
[2016-08-27] MEDS: MethylPREDNISolone 40 mg Vial IV SCH ×2 (09:19→22:41)
[2016-08-27] MEDS ORDERED: Nitroglycerin 50mg in D5W 50 MG/250 ML BOTTLE IV ONE (09:36)
[2016-08-27] MEDS ORDERED: Lidocaine 2% Inj (20ml) ONE (09:48)
[2016-08-27] MEDS ORDERED: Iohexol 350 MG/100 ML VIAL ONE (09:49)
[2016-08-27] MEDS ORDERED: Iohexol 350mgl/ml 50 ML ONE (09:49)
[2016-08-27] MEDS ORDERED: Pantoprazole 40 mg EC Tab PO SCH (10:00)
[2016-08-27] MEDS ORDERED: Midazolam 2 MG/2 ML VIAL ONE (10:27)
[2016-08-27] MEDS ORDERED: Milrinone 20mg/100ml D5W 100 ML IV PRN (11:42)
[2016-08-27] MEDS ORDERED: Sodium Chloride 0.9% 1,000 ML IV SCH (11:45)
[2016-08-27] MEDS ORDERED: Potassium Chloride 20 mEq ER Tab PO ONE (11:48)
--- NOTE | 2016-08-27 12:12 | PN ---
DATE: 08/27/2016 REASON FOR CONSULTATION AND FOLLOWUP: Rule out CHF, status post cardiac catheterization, nonischemic cardiomyopathy. BRIEF CLINICAL HISTORY: This is a 60-year-old obese female, body mass index 38.7 kg/m2, history of asthma, history of CHF, hypertension, admitted yesterday with 2 weeks' duration of complaint of shortness of breath. The patient came to the Emergency Room twice and was advised admission, but signed out AMA. Yesterday, came back again, was very short of breath. Chest x-ray was consistent with CHF. In view of above, the patient was scheduled for cardiac catheterization to determine etiology of CHF. So, the patient underwent cardiac catheterization to rule out any ischemia. That shows left main essentially free of significant disease, a large caliber vessel, bifurcated into LAD and circumflex. LAD is essentially free of significant disease. Circ is codominant, essentially free of significant disease. Right coronary artery is a large caliber vessel, ostial 40% stenosis, but no flow obstructive stenosis noted. LV gram shows enlarged heart, ejection fraction 35%, possibly due with hand injection, cannot accurately comment on the mitral regurgitation or ejection fraction. EDP was elevated in the range of 30. IMPRESSION: Nonischemic cardiomyopathy, nonobstructive coronary artery disease. RECOMMENDATION: We will start digoxin, diuretic, ARSLAN inhibitor, Coreg and start Primacor, aggressively diurese, repeat echo to assess LV function. Once the patient is off Primacor, we will get a MUGA scan to assess LV function and RV function. Possibly all these symptoms secondary to acute CHF secondary to nonischemic cardiomyopathy. We will follow with you. Thank you, Dr. Gonzalez, for providing us the opportunity in taking care of the patient. Garett Givens MD cc: [id number] TT: 08/27/2016 12:12:13 Confirmation # [id number] Dictation # [id number] herson GALLEGOS
[2016-08-27] MEDS: Levothyroxine 50 MCG TAB PO SCH (12:18)
--- NOTE | 2016-08-27 13:26 | PN ---
DATE: 08/27/2016 The patient is a 60-year-old, was admitted yesterday with increasing shortness of breath, underwent c ardiac catheterization, found to have nonischemic cardiomyopathy, but patient is in CHF and some COPD element. The patient was seen and examined, just came back from catheterization. PHYSICAL EXAMINATION: VITAL SIGNS: She is afebrile, pulse 70, respirations 18, blood pressure 100/75. LUNGS: Bilateral fair airflow. Diffusely decreased breath sounds posteriorly. Soft crackle at base s. HEART: S1, S2 audible. ABDOMEN: Soft, very obese, nontender, no rebound, no guarding. NEUROLOGIC: She is awake and alert, communicative, complained of feeling hot. LABORATORY EXAMINATION: WBCs 8.5, hemoglobin 13.9, hematocrit 42.7, platelets of 289. Chemistry: S odium 141, potassium 3.9, chloride 102, CO2 26, BUN 19, creatinine 0.6, blood sugar of 197. Triglyce ride 86, cholesterol 251, LDL is 163. Urinalysis is unremarkable. ASSESSMENT: 1. Congestive heart failure exacerbation. 2. Chronic obstructive pulmonary disease exacerbation. 3. Morbid obesity. 4. History of bipolar disorder. 5. Obstructive sleep apnea. PLAN: The patient had cardiac cath done. We will start her on aspirin 81 daily. She is on Coreg 3. 125 twice a day. She is getting nebulizer treatments and potassium is being supplemented. She has b een started on digoxin, Lasix 40 mg twice a day, Lipitor 80 mg daily. She has been started on milrin one drip. She is on small dose of steroids. We will maintain her on ARSLAN inhibitors. Echocardiogram will be done and patient will be reevaluated in a.m. and we will follow up her electrolytes and CBC in a.m. Andressa Gonzalez MD cc: [phone] TT: 08/27/2016 13:25:08 Confirmation # [id number] Dictation # [id number] en
[2016-08-27] MEDS ORDERED: Bacitracin 500 Units/gm Oint Foilpak UD TOP ONE (14:13)
[2016-08-27] MEDS ORDERED: Bacitracin 500 Units/gm Oint Foilpak UD ONE (14:22)
[2016-08-27] MEDS: Digoxin 250 mcg (0.25 mg) Tab PO SCH (14:30)
[2016-08-27] MEDS ORDERED: Sodium Chloride 0.9% 250 ML IV STA (15:21)
[2016-08-27] MEDS ORDERED: Oxycodone/Acetaminophen 5/325 mg Tab PO ONE (15:35)
[2016-08-27 16:09] LABS: ADD MANUAL DIFF? NO
[2016-08-27 16:11] LABS: GRAN # 16.19 (1.4-6.5); GRAN % 92.2 % (50.0-68.0); HEMATOCRIT 37.4 % (36.0-48.0); LYMPH # 0.7 (1.2-3.4); LYMPH % 3.9 % (22.0-35.0); MEAN CELL VOLUME 93.3 fL (80.0-105.0); MEAN CORPUSCULAR HEMOGLOBIN 31.2 pg (25.0-35.0); MEAN CORPUSCULAR HGB CONC 33.4 g/dl (31.0-37.0); MEAN PLATELET VOLUME 10.8 fl (7.0-11.0); MONO # 0.7 (0.1-0.6); MONO % 3.9 % (1.0-6.0); PLATELET COUNT 306 10^3/uL (120.0-450.0); RED CELL DISTRIBUTION WIDTH 13.7 % (11.5-14.5); WHITE BLOOD COUNT 17.6 10^3/ul (4.5-11.0)
--- NOTE | 2016-08-27 16:25 | CARD ---
APPROVED REPORT Procedure(s) performed: Left Heart Catheterization HISTORY The patient is a 60 year-old female with a history of : previous CHF, hypertension , Multiple ER Visits with SOB in two weeks and sign out AMA twice from ER, admitted yesterday with pulmonary edema on non invasive vent. INDICATION The indication(s) include : dyspnea, Acute pulmonary edema requiring non Invasive vent.. CASE TECHNIQUE The patient was brought urgently to the Cardiac Catheterization Laboratory in a fasting state and was prepped and draped in a sterile manner. The left wrist was infiltrated with 2% Lidocaine subcutaneous anesthesia. A sheath was inserted into the left radial artery without difficulty. Coronary angiography was performed using coronary diagnostic catheters. The left coronary system was accessed and visualized with a Diagnostic ,6 Fr JL 4 catheter. The right coronary system was accessed and visualized with a Diagnostic ,5 Fr AR 1 MOD catheter. The left ventricle was accessed and visualized with a 6 Fr JL 4 catheter. Left ventricular/Aortic Valve gradient assessed on pullback. Left ventriculogram was performed in JASON projection. Pre-demployment femoral angiogram was performed . The patient tolerated the procedure well and there were no complications associated with the procedure. Cardiac cath started with left Radial Access but could not adequately engaged RCA from left radial acces and was suspicious of High grade Ostial RCA stenosis, so RFA access was obtained andRCA was engaged with JENNY cath. Vessel Analysis The patient's coronary anatomy is co-dominant. The left main coronary artery is a large size vessel without significant stenosis. The left main bifurcates to the left anterior descending and circumflex. The left anterior descending artery is a medium size vessel without significant stenosis. The first diagonal branch is a medium size vessel without significant stenosis. The circumflex artery is a large size vessel without significant stenosis. The first obtuse marginal branch is a small size vessel without significant stenosis. The second obtuse marginal branch is a large size vessel without significant stenosis. The left posterior descending artery is a medium size vessel without significant stenosis. The right coronary artery is a large size vessel with diffuse calcification noted throughout this vessel and without significant stenosis. There is a 40% stenosis in the ostial segment. The right posterior descending artery is a large size vessel without significant stenosis. Left Ventricle The left ventricle is enlarged in size with mild to moderately decreased contractility. Non-Ischemic cardiomyopathy. The left ventricular ejection fraction is estimated to be 40-45%. The left ventricular end diastolic pressure is 30 mmHg. There was no gradient across the aortic valve upon pullback. Conclusion Non obstructive CAD, limited to Ostial RCA 40% stenosis Non Ischemic CMP- EF-40-45%, EDP-30 Recommendations Smoking Cessation Cardiac Rehabilitation Referral Aggressive Medical TherapyCardiac Risk Reduction Program Weight Loss Reduction Program Start Dig, Diuretic, ARSLAN, Coreg. Primacor for 24-48 hrs anf aggressively diuresed her Emphasis made on compliance of meds and diet. Assess LV Fx by Echo and MUGA CC; Dr. Gonzalez
[2016-08-27] MEDS ORDERED: POLYETHYLENE GLYCOL 3350 17 GM/Dose PACKET PO ONE (17:19)
--- NOTE | 2016-08-27 17:23 | CARD ---
APPROVED REPORT EXAM: Two-dimensional and M-mode echocardiogram with Doppler and color Doppler. INDICATION CP/LVFX 2D DIMENSIONS Left Atrium (2D)4.5 (1.6-4.0cm)IVSd1.3 (0.7-1.1cm) LVDd4.6 (3.9-5.9cm)PWd1.5 (0.7-1.1cm) LVDs3.8 (2.5-4.0cm)FS (%) 17.5 % LVEF (%)36.4 (>50%) M-Mode DIMENSIONS Aortic Root2.90 (2.2-3.7cm)Aortic Cusp Exc.1.60 (1.5-2.0cm) Aortic Valve AoV Peak Jokccelp358.0cm/Luz Peak GR.9mmHg Mitral Valve MV E Ozcpnhwy66.4cm/sMV A Flhxopit43.0cm/sE/A ratio0.8 TDI Lateral E' Peak V8.09cm/sMedial E' Peak V4.78cm/sE/Lateral E'7.1 E/Medial E'12.0 Pulmonary Valve PV Peak Xxcxsnjy100.0cm/sPV Peak Grad.4mmHg Tricuspid Valve TR Peak Gxeqkckt850zl/sRAP [id number] Peak Gr.11mmHg NOLE84uoFb LEFT VENTRICLE The left ventricle is normal size. There is mild concentric left ventricular hypertrophy. The systolic function is mildly to moderately impaired.EF-35-40% There is global hypokinesis of the left ventricle. Transmitral Doppler flow pattern is Grade III-reversible restrictive diastolic dysfunction. No left ventricle thrombus noted on this study. There is no ventricular septal defect visualized. There is no left ventricular aneurysm. There is no mass noted in the left ventricle. RIGHT VENTRICLE The right ventricle is normal size. There is normal right ventricular wall thickness. The right ventricular systolic function is normal. ATRIA The left atrium is mildly dilated. The right atrium size is normal. The interatrial septum is intact with no evidence for an atrial septal defect. AORTIC VALVE The aortic valve is thickened but opens well. There is trace aortic regurgitation. There is no aortic valvular stenosis. There is no aortic valvular vegetation. MITRAL VALVE The mitral valve is thickened but opens well. Mitral regurgitation is trace. There is no mitral valve stenosis. There is no evidence of mitral valve prolapse. TRICUSPID VALVE The tricuspid valve leaflets are thickened , but open well. There is trace tricuspid regurgitation.RVSP-21 mmof hg. There is no tricuspid valve stenosis. There is no tricuspid valve prolapse or vegetation. PULMONIC VALVE The pulmonary valve is normal in structure. GREAT VESSELS The aortic root is normal in size. The ascending aorta is normal in size. The pulmonary artery is normal. The IVC is dilated. PERICARDIAL EFFUSION There is no pleural effusion. There is a trace to small pericardial effusion. <Conclusion> The left ventricle is normal size. There is mild concentric left ventricular hypertrophy. The systolic function is mildly to moderately impaired.EF-35-40% There is trace aortic regurgitation. Mitral regurgitation is trace. There is trace tricuspid regurgitation.RVSP-21 mmof hg. There is a trace to small pericardial effusion. The IVC is dilated.
[2016-08-27 21:23] LABS: ADD MANUAL DIFF? NO
[2016-08-27 21:31] LABS: BASO # 0.01 K/mm3 (0.0-2.0); BASO % 0.1 % (0.0-3.0); GRAN # 15.46 (1.4-6.5); GRAN % 89.4 % (50.0-68.0); HEMATOCRIT 35.5 % (36.0-48.0); LYMPH # 0.9 (1.2-3.4); LYMPH % 5.4 % (22.0-35.0); MEAN CELL VOLUME 93.7 fL (80.0-105.0); MEAN CORPUSCULAR HEMOGLOBIN 30.9 pg (25.0-35.0); MONO # 0.9 (0.1-0.6); MONO % 5.1 % (1.0-6.0); PLATELET COUNT 295 10^3/uL (120.0-450.0); WHITE BLOOD COUNT 17.3 10^3/ul (4.5-11.0)
[2016-08-28] MEDS: Albuterol-Ipratrop 3 mg / 0.5 (3 ml) UD IH SCH ×2 (02:00→07:01)
[2016-08-28 05:42] LABS: HEMATOCRIT 34.7 % (36.0-48.0); MEAN CELL VOLUME 93.3 fL (80.0-105.0); MEAN CORPUSCULAR HEMOGLOBIN 30.4 pg (25.0-35.0); MEAN CORPUSCULAR HGB CONC 32.6 g/dl (31.0-37.0); PLATELET COUNT 283 10^3/uL (120.0-450.0)
[2016-08-28 05:52] LABS: ADD MANUAL DIFF? YES
[2016-08-28 05:56] LABS: ALB/GLOB RATIO 1.4 (1.1-1.8); ALKALINE PHOSPHATASE 81 U/L (38-133); ALT/SGPT 41 U/L (7-56); AST/SGOT 14 U/L (15-39); BILIRUBIN,TOTAL 0.6 mg/dL (0.2-1.3); BLOOD UREA NITROGEN 30 mg/dL (7-21); CARBON DIOXIDE 27 mmol/L (21-33); CHLORIDE 102 mmol/L (98-107); GFR AFRICAN-AMERICAN > 60; GLUCOSE,RANDOM 251 mg/dL (70-110); MAGNESIUM 2.3 mg/dL (1.7-2.2); PHOSPHOROUS 4.3 mg/dL (2.5-4.5); POTASSIUM 4.1 mmol/L (3.6-5.0); SODIUM 137 mmol/L (132-148); TOTAL PROTEIN 6.6 g/dL (5.8-8.3)
[2016-08-28 06:32] LABS: BAND 4 % (0-2); NEUTROPHIL 90 % (50.0-70.0); PLATELET ESTIMATE NORMAL (NORMAL)
[2016-08-28] MEDS: Enoxaparin 40 mg Syringe SC SCH ×2 (07:50→09:23)
[2016-08-28] MEDS: Pantoprazole 40 mg EC Tab PO SCH (08:08)
--- NOTE | 2016-08-28 08:46 | PN ---
DATE: 08/28/2016 The patient seen and examined at bedside. She is comfortable. She talks full sentences. She is not in respiratory or otherwise distress. The patient is on nasal cannula of 5 liters per minute. Her oxygen saturation fluctuates between 93% and 95%. PHYSICAL EXAMINATION: VITAL SIGNS: Blood pressure 116/68 and comes sometimes as high as 158 systolic , heart rate 87, respiratory rate 21. HEAD AND NECK: Atraumatic. LUNGS: Few rhonchi bilaterally. HEART: Regular rate and rhythm. S1, S2 distant. ABDOMEN: Soft, nontender, nondistended. MUSCULOSKELETAL: Trace bilateral pedal and ankle edema. NEUROLOGIC: The patient moves all extremities spontaneously. SKIN: Moist. PSYCHIATRIC: The patient is alert and oriented x 3. LABORATORIES: WBC 15, down from 17.3, hemoglobin 11.3, platelet count 283. Sodium 137, potassium 4.1, chloride 102, carbon dioxide 27, BUN 30, creatinine 0.8. MEDICATIONS: Tylenol p.r.n., DuoNeb p.r.n., Brovana, aspirin, Lipitor, Pulmicort, Coreg, digoxin, Colace, Cymbalta, Lovenox 40 mg subQ daily, Lasix 40 mg IV twice a day, Synthroid, lisinopril, Ativan p.r.n., Solu-Medrol, Zofran p.r.n., Percocet, Protonix, zolpidem p.r.n. ASSESSMENT AND PLAN: This is a 60-year-old lady with history of mild to moderate systolic left ventricular dysfunction, nonobstructive coronary artery disease and poorly controlled asthma, who presented with increased shortness of breath and was found to have likely congestive heart failure exacerbation with elevated left ventricular end-diastolic pressure on cardiac catheterization. Echocardiogram also confirmed mild to moderate left ventricular systolic dysfunction. Component of bronchospasm due to poorly controlled asthma/asthma exacerbation could not be ruled out. As noted above, patient had cardiac catheterization, which revealed nonobstructive mild coronary artery disease. The patient is on cardiac regimen for left ventricular systolic dysfunction including ARSLAN inhibitors, beta blockers, diuretics. The patient is also on aspirin. The patient diuresed well. She is minus about 800 mL negative fluid balance over the last 24 hours. Her respiratory status substantially improved. She was switched to nasal cannula. She is not in respiratory distress anymore. She is on steroid taper and inhaled corticosteroid/long acting beta-2 agonist was started. We will continue with that. Chest physiotherapy, out of bed to chair, mobilization, physical therapy, pulmonary toilet, deep venous thrombosis and gastrointestinal prophylaxis also recommended. We will continue to target euvolemia, euglycemia, normothermia and oxygen saturation more than 90 %. Okay to downgrade to telemetry. ccm time 40 min Travon Shaffer MD cc: [id number] TT: 08/28/2016 08:45:59 Confirmation # [id number] Dictation # [id number] en MTDD
[2016-08-28] MEDS: MethylPREDNISolone 40 mg Vial IV SCH ×2 (09:22→21:48)
[2016-08-28] MEDS: Levothyroxine 50 MCG TAB PO SCH (09:23)
--- NOTE | 2016-08-28 10:00 | PN ---
DATE: 08/28/2016 REASON FOR CONSULTATION AND FOLLOWUP: Acute decompensated congestive heart failure, COPD exacerbatio n, status post cardiac catheterization, nonobstructive coronary artery disease, nonischemic cardiomyo antonia. BRIEF CLINICAL HISTORY: This is a 60-year-old obese female with body mass index 38.7 kg/meters [facility] ed, history of asthma. Came in with complaint of shortness of breath, chest pain, consistent with ac enterprise pulmonary edema. The patient has been twice ER visit, advised admission and workup, but patient signed out from AMA. Yesterday, patient underwent cardiac catheterization that revealed nonobstructi ve coronary artery disease limited only to ostial right coronary artery, decreased LV function, eject ion fraction around 35%-40%. The patient started diuretics, significantly improved. Very noncomplia nt. After the catheterization, the patient was keep on tossing over the bed in spite of multiple michael es told that patient can bleed, but patient did not listen. PHYSICAL EXAMINATION: VITAL SIGNS: Temperature afebrile, heart rate 87, blood pressure 116/68. HEENT: PERRLA. Extraocular muscles intact. NECK: Supple. No carotid bruit, no thyromegaly. CHEST: Clear to auscultation. HEART: S1, S2 regular. ABDOMEN: Soft. EXTREMITIES: Clubbing, cyanosis negative. Right femoral area appears okay. No hematoma noted. Lef t wrist distal pulse 1+. BLOOD WORKUP: WBC 15, hemoglobin 11.3, hematocrit 34.7, platelet count 283. Chemistry shows sodium 137, potassium 4. , chloride 102, carbon dioxide 27, anion gap of 12, BUN 30, creatinine 0.8. IMPRESSION: Hyperlipidemia, obesity, morbid obesity, diabetes, noncompliance with the medication, st atus post cardiac catheterization, nonobstructive coronary artery disease limited only to ostial righ t coronary artery, decreased left ventricular function, ejection fraction around 35%-40% by cath arou nd 40%-45%, nonischemic cardiomyopathy. RECOMMENDATION: We will get the MUGA scan. Continue IV diuretics. Started Coreg, aspirin. Plavix is discontinued. Digoxin 0.25 mg. Deep venous thrombosis prophylaxis and continue lisinopril 2.5 mg . Ambulate, transfer to the [facility], ambulate. We will follow with you. Thank you, Dr. Gonzalez, for providing us the opportunity in taking care of the patient. We will repe at another CBC because of little drop in hemoglobin secondary to hemodilution or needs to rule out re ally dropping H and H because patient had a cardiac catheterization yesterday from the right femoral approach as well as right coronary artery could not be accessed from the radial, though no hematoma n oted and does not appear any suspicious of bleeding. The belly is soft, but we will repeat at 1 p.m. hemoglobin to check, rule out any occult bleed. We will follow with you. Thank you, Dr. Gonzalez, for providing us the opportunity in taking care of the patient. We will get the MUGA scan to quantify the ejection fraction. Supplement electrolytes as needed. We will follow with you. Garett Givens MD cc: [id number] TT: 08/28/2016 09:49:09 Confirmation # [id number] Dictation # [id number] en 08/28/2016 08:59:23
--- NOTE | 2016-08-28 12:37 | PN ---
DATE: 08/28/2016 The patient is a 60-year-old seen and examined, states she feels a lot better. No cough, no congesti on, no nausea, vomiting, no diarrhea. Eating and tolerating. PHYSICAL EXAMINATION: VITAL SIGNS: She is afebrile, pulse 87, respirations 21, blood pressure 118/58. LUNGS: Bilateral fair airflow, no rhonchi or crackle. HEART: S1, S2 audible. She has a barking cough. NEUROLOGIC: She is awake and alert, communicative. LABORATORY DATA: WBC is 15, hemoglobin 11.3, hematocrit 34.7, platelet 283. Chemistry: Sodium 137, potassium 4.1, chloride 102, CO2 of 27, BUN 30, creatinine 0.8, blood sugar of 251, triglycerides 18 2. Total cholesterol 251. Status post cardiac catheterization and nonocclusive coronary artery disease. ASSESSMENT AND PLAN: 1. Morbid obesity. 2. Nonischemic cardiomyopathy. 3. Congestive heart failure, improving. 4. Chronic obstructive pulmonary disease exacerbation. PLAN: The patient will be transferred out of ICU. We will continue IV steroids, IV diuretic. We wi ll follow up her electrolytes and encourage ambulation and will make disposition plan according to he r performance when she is transferred to regular floor. Andressa Gonzalez MD cc: [phone] TT: 08/28/2016 12:36:40 Confirmation # [id number] Dictation # [id number] lorna
[2016-08-28] MEDS: Budesonide 0.5 mg/2 ml Inhal Susp UD IH SCH ×2 (13:20→19:43)
[2016-08-28] MEDS: Arformoterol 15 mcg/2 ml Inh Sol IH SCH ×2 (13:20→19:42)
[2016-08-28 14:23] LABS: ADD MANUAL DIFF? NO
[2016-08-28 14:33] LABS: GRAN # 12.31 (1.4-6.5); GRAN % 94.5 % (50.0-68.0); HEMATOCRIT 33.6 % (36.0-48.0); LYMPH # 0.5 (1.2-3.4); MEAN CELL VOLUME 93.3 fL (80.0-105.0); MEAN CORPUSCULAR HEMOGLOBIN 30.8 pg (25.0-35.0); MONO # 0.2 (0.1-0.6); MONO % 1.5 % (1.0-6.0); PLATELET COUNT 274 10^3/uL (120.0-450.0)
[2016-08-28] MEDS: Digoxin 250 mcg (0.25 mg) Tab PO SCH (14:59)
--- NOTE | 2016-08-28 20:06 | CARD ---
APPROVED REPORT INDICATION Congestive Heart Failure COPD EVALUATE RV AND LV EF PROCEDURE The above named patient recieved 30 millicuries of Tc99m tagged red blood cells intravenously. After achieving equilibrium, gated imaging of 16/frame/cycle was performed utillizing Gamma camera interfaced with a digital computer and gated device. Gated imaging was then performed in the left anterior oblique, anterior, and the left lateral projections. Findings Left Ventricle: The quality of the study is good. The left ventricle is mildly enlarged in size with thickened myocardium. The right ventricle is normal in size. Wall motion study shows good contractility of the left ventricle. RV wall motion is normal. The right atrium is dynamic.. The left atrium is sligtly prominent. The remainder of the study is unremarkable. Impressions Normal gated wall motion of left ventricle wall. LVEF = 61%. LVH. Normal RV wall motion.
[2016-08-29] MEDS: Pantoprazole 40 mg EC Tab PO SCH (06:33)
[2016-08-29] MEDS: Arformoterol 15 mcg/2 ml Inh Sol IH SCH (07:58)
[2016-08-29] MEDS: Budesonide 0.5 mg/2 ml Inhal Susp UD IH SCH (07:58)
[2016-08-29 08:03] LABS: ALB/GLOB RATIO 1.3 (1.1-1.8); ALKALINE PHOSPHATASE 82 U/L (38-133); ALT/SGPT 36 U/L (7-56); AST/SGOT 15 U/L (15-39); BILIRUBIN,TOTAL 0.5 mg/dL (0.2-1.3); BLOOD UREA NITROGEN 28 mg/dL (7-21); CARBON DIOXIDE 29 mmol/L (21-33); CHLORIDE 101 mmol/L (95-110); GFR AFRICAN-AMERICAN > 60; GLUCOSE,RANDOM 151 mg/dL (70-110); POTASSIUM 3.7 mmol/L (3.6-5.0); SODIUM 139 mmol/L (132-148); TOTAL PROTEIN 6.6 g/dL (5.8-8.3)
[2016-08-29 08:04] LABS: HEMATOCRIT 33.8 % (36.0-48.0); MEAN CELL VOLUME 92.9 fL (80.0-105.0); MEAN CORPUSCULAR HEMOGLOBIN 30.2 pg (25.0-35.0); MEAN CORPUSCULAR HGB CONC 32.5 g/dl (31.0-37.0); RED CELL DISTRIBUTION WIDTH 13.7 % (11.5-14.5); WHITE BLOOD COUNT 11.8 10^3/ul (4.5-11.0)
[2016-08-29] MEDS: Enoxaparin 40 mg Syringe SC SCH (09:31)
[2016-08-29] MEDS: MethylPREDNISolone 40 mg Vial IV SCH (09:32)
[2016-08-29] MEDS: Levothyroxine 50 MCG TAB PO SCH (09:33)
--- NOTE | 2016-08-29 10:42 | PN ---
DATE: 08/29/2016 The patient is in room 276, bed 2. REASON FOR CONSULTATION AND FOLLOWUP: Acute decompensated congestive heart failure, COPD with exacer bation, status post cardiac catheterization, nonobstructive coronary artery disease, nonischemic card iomyopathy. HISTORY OF PRESENT ILLNESS: The patient is a 60-year-old obese female, body mass index 38.7 kg/m2, h istory of asthma, came with complaint of shortness of breath, chest pain consistent with acute pulmon ildefonso edema. The patient's cardiac catheterization revealed nonobstructive coronary artery disease gasca ited only to the ostial right coronary artery, decreased LV function, ejection fraction 35-40%. The patient improved with diuretic therapy. The patient is a very noncompliant patient. She came to [facility] Room twice and signed out prior to this admission. The patient now denies any chest pain, aftab rtness of breath, palpitation. Lying comfortably in bed. PHYSICAL EXAMINATION: VITAL SIGNS: Blood pressure 136/70, respirations 20, pulse 89, temperature 98.8. HEAD: Normocephalic. EYES: Pupils normal. Conjunctivae slightly pale. NECK: JVP low. Carotid equal. THORAX: AP diameter normal. LUNGS: No significant rales. CARDIOVASCULAR: S1, S2. ABDOMEN: Soft, no tenderness, no organomegaly. Bowel sounds normal. EXTREMITIES: No clubbing, no cyanosis. LABORATORY DATA: WBC 11.8, hemoglobin 11.0, hematocrit 33.8, platelet 279. Sodium 139, potassium 3. 7, BUN 28, creatinine 0.6, random glucose 151, calcium 9.0, phosphorus 4.3, magnesium 2.3, AST 14, AL T 41, total protein 6.6, albumin 3.7. Chest x-ray on 08/26/2016 showed improvement in the congestion. The patient had a MUGA scan on 08/28/2016 which showed LV ejection fraction of 61%, LVH, normal RV wal l motion. DIAGNOSES: Congestive heart failure due to acute left ventricular systolic dysfunction, acute pulmon ildefonso edema, hyperlipidemia, morbid obesity, diabetes, noncompliant patient, history of asthma. PLAN: The patient has showed clinical improvement. The patient is on aspirin 81 mg daily, Coreg 3.1 25 b.i.d., DuoNeb hand nebulizer therapy, digoxin 0.25 daily, furosemide 40 mg IV b.i.d., Lipitor 80 mg daily, Lovenox 40 mg daily, Protonix 40 mg daily, Solu-Medrol 40 mg IV q. 12 hours, Synthroid 50 m cg p.o. daily, Zestril 2.5 mg daily. We will continue present therapy and we will follow with you. Garett Ellison MD cc: [phone] TT: 08/29/2016 10:41:47 Confirmation # [id number] Dictation # [id number] tn
--- NOTE | 2016-08-29 11:35 | PN ---
DATE: 08/29/2016 SUBJECTIVE: The patient is a 60-year-old, seen and examined, doing a lot better. No shortness of br eath while at rest. She has to go for physical therapy yet. No nausea, vomiting. No diarrhea. Fee ls a little agitated. PHYSICAL EXAMINATION: VITAL SIGNS: She is afebrile, pulse 89, respirations 20, blood pressure 136/70. LUNGS: Bilateral good airflow, no rhonchi or crackle. HEART: S1, S2 audible. No murmur. ABDOMEN: Soft. Very obese, nontender, no rebound, no guarding. NEUROLOGIC: She is awake and alert, communicative. Moves all extremities. LABORATORY EXAMINATION: WBC 11.8, hemoglobin 11, hematocrit 33.8, platelet 279. Chemistry: Sodium 139, potassium 3.7, chloride 101, CO2 29, BUN 28, creatinine 0.6, blood sugar of 151. ASSESSMENT: 1. Congestive heart failure exacerbation secondary to left ventricular systolic dysfunction. 2. Chronic obstructive pulmonary disease exacerbation. 3. Morbid obesity. 4. Obstructive sleep apnea. 5. Non-insulin dependent diabetes. 6. Pulmonary edema. 7. Status post cardiac catheterization, nonischemic cardiomyopathy. 8. Anxiety disorder. 9. Left ventricular systolic dysfunction with ejection fraction of 35-40%. PLAN: Currently, the patient is on Ambien 5 mg at bedtime, aspirin 81 daily, Ativan 1 mg q. 6 p.r.n. She is on Brovana. We will continue her on Colace. We will continue her on Cymbalta, getting nebu lizer treatment as needed. She is on digoxin. She is being diuresed with 40 mg Lasix daily. She is on Lovenox. Continue on Protonix. Cut down her steroid since she is not wheezing. I will disconti nue IV steroid and start her on p.o. prednisone. Physical therapy evaluation has been requested. Th e patient needs to mobilize to make further discharge plan. Andressa Gonzalez MD cc: [phone] TT: 08/29/2016 11:34:14 Confirmation # [id number] Dictation # [id number] tn
[2016-08-29] MEDS: Digoxin 250 mcg (0.25 mg) Tab PO SCH (14:01)
[2016-08-29 14:02] VITALS: PULSE 89
[2016-08-30 00:06] VITALS: RESP 22
[2016-08-30 05:51] VITALS: TEMP 97.5; O2SAT 94
[2016-08-30] MEDS: Pantoprazole 40 mg EC Tab PO SCH (05:58)
--- NOTE | 2016-08-30 06:11 | CP.PCM.PN ---
Objective - Vital Signs/Intake and Output Vital Signs (last 24 hours): Temp Pulse Resp BP Pulse Ox 97.5 F L 74 22 170/90 H 94 L 08/30/16 05:51 08/30/16 05:51 08/30/16 05:51 08/30/16 05:51 08/30/16 05:51 Intake and Output: 08/29/16 08/30/16 18:59 06:59 Intake Total 740 480 Balance 740 480 - Medications Medications: Current Medications Acetaminophen (Tylenol 325mg Tab) 650 mg PO Q6H PRN PRN Reason: Fever >100.4 F Albuterol/Ipratropium (Duoneb 3 Mg/0.5 Mg (3 Ml) Ud) 3 ml IH Q2H PRN PRN Reason: Shortness of Breath Arformoterol Tartrate (Brovana) 15 mcg IH [id number] [facility] Last Admin: 08/29/16 07:58 Dose: 15 mcg Aspirin (Aspirin Chewable) 81 mg PO DAILY [facility] Last Admin: 08/29/16 09:32 Dose: 81 mg Atorvastatin Calcium (Lipitor) 80 mg PO DIN [facility] Last Admin: 08/29/16 18:04 Dose: 80 mg Budesonide (Pulmicort Respules) 1 mg IH [id number] [facility] Last Admin: 08/29/16 07:58 Dose: 1 mg Carvedilol (Coreg) 3.125 mg PO BID [facility] Last Admin: 08/29/16 18:04 Dose: 3.125 mg Digoxin (Lanoxin) 0.25 mg PO 1400 [facility] Last Admin: 08/29/16 14:01 Dose: 0.25 mg Docusate Sodium (Colace) 100 mg PO DAILY [facility] Last Admin: 08/29/16 09:33 Dose: 100 mg Duloxetine HCl (Cymbalta) 60 mg PO QAM [facility] Last Admin: 08/29/16 09:32 Dose: 60 mg Enoxaparin Sodium (Lovenox) 40 mg SC DAILY [facility] PRN Reason: Protocol Last Admin: 08/29/16 09:31 Dose: 40 mg Furosemide (Lasix) 40 mg PO DAILY [facility] Levothyroxine Sodium (Synthroid) 50 mcg PO DAILY [facility] Last Admin: 08/29/16 09:33 Dose: 50 mcg Lisinopril (Zestril) 2.5 mg PO DAILY [facility] Last Admin: 08/29/16 09:33 Dose: 2.5 mg Lorazepam (Ativan) 1 mg PO Q6 PRN; Protocol PRN Reason: Anxiety Last Admin: 08/29/16 21:22 Dose: 1 mg Ondansetron HCl (Zofran Inj) 4 mg IVP Q6H PRN PRN Reason: Nausea/Vomiting Pantoprazole Sodium (Protonix Ec Tab) 40 mg PO 0630 [facility] Last Admin: 08/29/16 06:33 Dose: 40 mg Prednisone (Prednisone Tab) 20 mg PO BID [facility] Last Admin: 08/29/16 18:04 Dose: 20 mg Zolpidem Tartrate (Ambien) 5 mg PO HS PRN; Protocol PRN Reason: Insomnia Last Admin: 08/28/16 21:47 Dose: 5 mg - Labs Labs: 08/29/16 07:41 08/29/16 07:41 PT 10.6 Seconds (9.9-11.8) 08/26/16 12:07 INR 0.98 (0.93-1.08) 08/26/16 12:07 APTT 26.1 Seconds (23.7-30.8) 08/26/16 12:07
[2016-08-30] MEDS: Budesonide 0.5 mg/2 ml Inhal Susp UD IH SCH (07:54)
[2016-08-30] MEDS: Arformoterol 15 mcg/2 ml Inh Sol IH SCH (07:54)
[2016-08-30 08:22] LABS: ALB/GLOB RATIO 1.2 (1.1-1.8); ALKALINE PHOSPHATASE 76 U/L (38-133); ALT/SGPT 32 U/L (7-56); AST/SGOT 26 U/L (15-39); BILIRUBIN,TOTAL 0.8 mg/dL (0.2-1.3); BLOOD UREA NITROGEN 30 mg/dL (7-21); CALCIUM 9.1 mg/dL (8.4-10.5); CARBON DIOXIDE 30 mmol/L (21-33); CHLORIDE 103 mmol/L (95-110); GFR AFRICAN-AMERICAN > 60; GLUCOSE,RANDOM 121 mg/dL (70-110); POTASSIUM 3.9 mmol/L (3.6-5.0); SODIUM 140 mmol/L (132-148); TOTAL PROTEIN 6.9 g/dL (5.8-8.3)
[2016-08-30 08:44] LABS: HEMATOCRIT 35.6 % (36.0-48.0); MEAN CELL VOLUME 92.7 fL (80.0-105.0); MEAN CORPUSCULAR HEMOGLOBIN 29.9 pg (25.0-35.0); MEAN CORPUSCULAR HGB CONC 32.3 g/dl (31.0-37.0); MEAN PLATELET VOLUME 11.2 fl (7.0-11.0); RED CELL DISTRIBUTION WIDTH 13.5 % (11.5-14.5); WHITE BLOOD COUNT 8.8 10^3/ul (4.5-11.0)
[2016-08-30] MEDS: Enoxaparin 40 mg Syringe SC SCH (09:28)
[2016-08-30] MEDS: Levothyroxine 50 MCG TAB PO SCH ×2 (09:29→10:31)
[2016-08-30 10:32] VITALS: BP 150/106
[2016-08-30 10:39] VITALS: PULSE 92
--- NOTE | 2016-08-30 11:28 | CP.PCM.PN ---
Subjective - Date & Time of Evaluation Date of Evaluation: 08/30/16 Time of Evaluation: 11:25 - Subjective Subjective: Patient seen because she wants to leave AMA for personal reasons. She is alert, oriented x 3 and is ambulatory.Has been refusing to take her meds/ other treatment prescribed for her. She does not want any further examinations,tests or treatment at this facility. Patient was advised that not getting the necessary care could lead to worsening of her cardiac condition,this could lead to ;the risk of not getting the care she needs for her COPD could lead to intubation,ventilator dependence and/ or . She says she understands everything she is told ,but still wants to leave AMA. She was strongly advised to follow up with her PMD,and/or return to the ER if needed. Time spent with this patient :25 mins. Objective - Vital Signs/Intake and Output Vital Signs (last 24 hours): Temp Pulse Resp BP Pulse Ox 97.5 F L 92 H 22 150/106 H 94 L 08/30/16 05:51 08/30/16 10:00 08/30/16 05:51 08/30/16 10:32 08/30/16 05:51 Intake and Output: 08/30/16 08/30/16 06:59 18:59 Intake Total 480 Balance 480 - Medications Medications: Current Medications Acetaminophen (Tylenol 325mg Tab) 650 mg PO Q6H PRN PRN Reason: Fever >100.4 F Albuterol/Ipratropium (Duoneb 3 Mg/0.5 Mg (3 Ml) Ud) 3 ml IH Q2H PRN PRN Reason: Shortness of Breath Arformoterol Tartrate (Brovana) 15 mcg IH [id number] [facility] Last Admin: 08/30/16 07:54 Dose: Not Given Aspirin (Aspirin Chewable) 81 mg PO DAILY [facility] Last Admin: 08/30/16 10:32 Dose: Not Given Atorvastatin Calcium (Lipitor) 80 mg PO DIN [facility] Last Admin: 08/29/16 18:04 Dose: 80 mg Budesonide (Pulmicort Respules) 1 mg IH [id number] [facility] Last Admin: 08/30/16 07:54 Dose: Not Given Carvedilol (Coreg) 3.125 mg PO BID [facility] Last Admin: 08/29/16 18:04 Dose: 3.125 mg Digoxin (Lanoxin) 0.25 mg PO 1400 [facility] Last Admin: 08/29/16 14:01 Dose: 0.25 mg Docusate Sodium (Colace) 100 mg PO DAILY [facility] Last Admin: 08/30/16 10:32 Dose: Not Given Duloxetine HCl (Cymbalta) 60 mg PO QAM [facility] Last Admin: 08/30/16 10:32 Dose: Not Given Enoxaparin Sodium (Lovenox) 40 mg SC DAILY [facility] PRN Reason: Protocol Last Admin: 08/30/16 09:28 Dose: 40 mg Furosemide (Lasix) 40 mg PO DAILY [facility] Last Admin: 08/30/16 10:32 Dose: Not Given Insulin Human Regular (Humulin R Med) 0 units SC [facility] PRN Reason: Protocol Levothyroxine Sodium (Synthroid) 50 mcg PO DAILY [facility] Last Admin: 08/30/16 10:31 Dose: Not Given Lisinopril (Zestril) 2.5 mg PO DAILY [facility] Last Admin: 08/29/16 09:33 Dose: 2.5 mg Lorazepam (Ativan) 1 mg PO Q6 PRN; Protocol PRN Reason: Anxiety Last Admin: 08/29/16 21:22 Dose: 1 mg Ondansetron HCl (Zofran Inj) 4 mg IVP Q6H PRN PRN Reason: Nausea/Vomiting Pantoprazole Sodium (Protonix Ec Tab) 40 mg PO 0630 [facility] Last Admin: 08/30/16 05:58 Dose: 40 mg Prednisone (Prednisone Tab) 20 mg PO BID [facility] Last Admin: 08/30/16 10:31 Dose: Not Given Zolpidem Tartrate (Ambien) 5 mg PO HS PRN; Protocol PRN Reason: Insomnia Last Admin: 08/28/16 21:47 Dose: 5 mg - Labs Labs: 08/30/16 07:57 08/30/16 07:57 PT 10.6 Seconds (9.9-11.8) 08/26/16 12:07 INR 0.98 (0.93-1.08) 08/26/16 12:07 APTT 26.1 Seconds (23.7-30.8) 08/26/16 12:07
[2016-08-30] MEDS ORDERED: Insulin Reg-MEDIUM-Coverage SC SCH (11:30)
--- NOTE | 2016-08-30 12:53 | PN ---
DATE: 08/30/2016 The patient is in room 276, bed 2. REASON FOR CONSULTATION AND FOLLOWUP: Acute decompensated congestive heart failure, COPD with exacer bation, status post cardiac catheterization, nonobstructive coronary artery disease, nonischemic card iomyopathy. HISTORY OF PRESENT ILLNESS: The patient is a 60-year-old obese female with body mass index 38.7 kg/m eters squared, history of COPD, asthma. Admitted with shortness of breath, chest pain consistent wit h acute pulmonary edema. The patient's cardiac catheterization showed nonobstructive coronary artery disease limited only to the ostial right coronary artery and on catheterization, ejection fraction w as 35%-40%. The patient improved with therapy. The patient is lying flat in bed without chest pain, shortness of breath, or palpitation. The patient had MUGA scan on 08/28/2016, which showed LV ejecti on fraction was 61%, normal RV wall motion. PHYSICAL EXAMINATION: VITAL SIGNS: Blood pressure 150/106, respirations 22, pulse 92, temperature 97.5. HEAD: Normocephalic. EYES: Pupils normal. Conjunctivae slightly pale. NECK: JVP low. Carotids equal. THORAX: AP diameter normal. LUNGS: Clear. CARDIOVASCULAR: S1, S2. ABDOMEN: Soft, no tenderness, no organomegaly. Bowel sounds normal. EXTREMITIES: No clubbing, no cyanosis. LABORATORIES: Shows WBC 8.8, hemoglobin 11.5, hematocrit 35.6, platelets 265. Sodium 140, potassium 3.9, BUN 30, creatinine 0.6. AST, ALT normal. Total protein, albumin normal. DIAGNOSES: Congestive heart failure due to acute left ventricular systolic dysfunction, acute pulmon ildefonso edema, hyperlipidemia, morbid obesity, diabetes, noncompliant patient, history of asthma. PLAN: Advised patient to lose weight and we will continue present therapy and she will have recheck of her blood pressure and we will follow with you. Garett Ellison MD cc: [phone] TT: 08/30/2016 12:52:33 Confirmation # [id number] Dictation # [id number]
--- NOTE | 2016-08-31 04:41 | DS ---
HISTORY OF PRESENT ILLNESS: The patient is a 60-year-old, who was admitted with increasing shortness of breath. The patient was admitted a few days before that, but she signed out AMA. This time becaus e she was desaturated, initially on nonrebreather mask, she was admitted in ICU. She underwent cardi ac catheterization and was found to have nonischemic cardiomyopathy. She remained on nebulizer treat ment, IV antibiotic. She was on Primacor drip for 2 days and made significant improvement, did well, transferred to TCU. She was encouraged to ambulate, but the patient was reluctant to move [facility] [place], however. PHYSICAL EXAMINATION: GENERAL: Awake, alert, oriented, communicative. VITAL SIGNS: She is afebrile, pulse 74, respirations 22, blood pressure ____. LUNGS: Bilateral diffusely decreased breath sounds. HEART: S1, S2 audible. ABDOMEN: Soft, obese, nontender, no rebound, no guarding. NEUROLOGIC: She is awake and alert, communicative, ambulatory. EXTREMITIES: Bilateral leg +1 edema. LABORATORY EXAM: WBC 8.8, hemoglobin 11.5, hematocrit 35.6, platelet 265. Chemistry: Sodium 140, p otassium 3.9, chloride 103, CO2 30, BUN 30, creatinine 0.6, blood sugar 121. ASSESSMENT: 1. Chronic obstructive pulmonary disease exacerbation. 2. Congestive heart failure exacerbation. 3. Morbid obesity. 4. Obstructive sleep apnea. 5. Hypertension. 6. Steroid-induced diabetes. 7. Left ventricular dysfunction. 8. Hyperlipidemia. PLAN: The patient was advised to stay another day or two to taper down the steroids and monitor her closely, encourage ambulation, but patient made a decision that she wanted to go home so she was disc harged on _ and she will resume her medication as prior to admission that includes Ambien, levothyroxine, Protonix, Ativan and Invega she gets from psychiatrist. She will follow up with her Kylah HAMEED. Andressa Gonzalez MD cc: [phone] TT: 08/30/2016 22:56:23 08/31/2016 03:40:55
== END 2016-08-30 11:53 | disposition left against medical advice (07) | DRG 287 ==
LOC: ED 10:29 → ERH 12:49 → MERGE 12:49 → ERH 17:30 → CCU 17:54 → 2RSO 08-28 17:24
PROVIDERS: ADMIT Internal Medicine; ATTEND Internal Medicine
PROC: 4A023N7 Measurement of Cardiac Sampling and Pressure, Left Heart, Percutaneous Approach (ICD-10-PCS; principal; 2016-08-27)
PROC: B2051ZZ Plain Radiography of Left Heart using Low Osmolar Contrast (ICD-10-PCS; 2016-08-27)
PROC: B2011ZZ Plain Radiography of Multiple Coronary Arteries using Low Osmolar Contrast (ICD-10-PCS; 2016-08-27)
DX: I11.0 Hypertensive heart disease with heart failure (principal); I50.23 Acute on chronic systolic (congestive) heart failure; I42.9 Cardiomyopathy, unspecified; J44.1 Chronic obstructive pulmonary disease with (acute) exacerbation; J45.31 Mild persistent asthma with (acute) exacerbation; E66.01 Morbid (severe) obesity due to excess calories; I25.10 Atherosclerotic heart disease of native coronary artery without angina pectoris; E09.9 Drug or chemical induced diabetes mellitus without complications; T38.0X5A Adverse effect of glucocorticoids and synthetic analogues, initial encounter; F31.9 Bipolar disorder, unspecified; E03.9 Hypothyroidism, unspecified; F17.210 Nicotine dependence, cigarettes, uncomplicated; G47.33 Obstructive sleep apnea (adult) (pediatric); E78.5 Hyperlipidemia, unspecified; F41.9 Anxiety disorder, unspecified; Z68.38 Body mass index [BMI] 38.0-38.9, adult; Z91.14 Patient's other noncompliance with medication regimen

== ENCOUNTER 2016-09-15 08:40 | Inpatient (IN) | payer MEDICARE, BC ==
[2016-09-15 08:40] VITALS: PULSE 89
[2016-09-15 08:47] VITALS: BMI 38.7
[2016-09-15] MEDS ORDERED: Nitroglycerin 2% Ointment Foilpak UD TOP STA (09:09)
[2016-09-15] MEDS ORDERED: Piperacillin/Tazobact 3.375 gm 100 ML IVPB STA (09:10)
[2016-09-15 09:27] LABS: ADD MANUAL DIFF? NO
--- NOTE | 2016-09-15 09:33 | ED PDOC ---
Arrival/HPI - General Chief Complaint: GI Problem Time Seen by Provider: 09/15/16 08:53 Historian: Patient - History of Present Illness Narrative History of Present Illness (Text): 09/15/16 09:06 A 60 year old female, whose past medical history includes asthma, CHF, hypertension and borderline diabetes, presents to the emergency department complaining of urinary incontinence since yesterday. Patient notes bilateral flank pain, nausea, non-bilious non-bloody vomiting, shortness of breath and chest discomfort. Patient denies any fever, chills, diarrhea, abdominal pain or any other complaints. Patient reports she recently signed out against medical advice from the ICU 12 days ago. She denies any headache. Denies hemoptysis. Denies bloody urine or stool. Denies any urinary retention, states she "can't control my urine". She states she signed out of the hospital against advice "because I felt like a guinea pig". She states her PMD is NOW Dr. Avelino Antoine. PMD: Dr. Antoine Time/Duration: Prior to Arrival, Other (Yesterday) Symptom Course: Unchanged Quality: Other Context: Home Past Medical History - Provider Review Nursing Documentation Reviewed: Yes - Cardiac Hx Congestive Heart Failure: Yes Hx Hypertension: Yes - Pulmonary Hx Asthma: Yes - Neurological Hx Neurological Disorder: No - HEENT Hx HEENT Disorder: No - Renal Hx Renal Disorder: No - Endocrine/Metabolic Hx Endocrine Disorders: No Hx Hypothyroidism: Yes - Hematological/Oncological Hx Blood Disorders: No - Integumentary Hx Dermatological Disorder: No - Musculoskeletal/Rheumatological Hx Falls: No - Gastrointestinal Hx Gastrointestinal Disorders: No - Genitourinary/Gynecological Hx Genitourinary Disorders: No - Psychiatric Hx Psychophysiologic Disorder: Yes Hx Anxiety: Yes Hx Bipolar Disorder: Yes Hx Substance Use: No - Surgical History Hx Cardiac Catheterization: Yes Hx Cholecystectomy: Yes Hx Orthopedic Surgery: Yes (Bilateral ankle reconstruction) - Anesthesia Hx Anesthesia: No Family/Social History - Physician Review Nursing Documentation Reviewed: Yes Family/Social History: No Known Family HX Smoking Status: Light Smoker < 10 Cigarettes Daily Hx Alcohol Use: No Hx Substance Use: No Allergies/Home Meds Allergies/Adverse Reactions: Allergies No Known Allergies Allergy (Verified 09/15/16 08:46) Home Medications: Home Meds Medication Instructions Recorded Confirmed DULoxetine [Cymbalta] 60 mg PO QAM 07/26/16 09/15/16 LORazepam [Ativan] 1 mg PO Q6 PRN 07/26/16 09/15/16 Levothyroxine [Synthroid] 0.05 mg PO DAILY 07/26/16 09/15/16 Pantoprazole Sodium [Protonix] 40 mg PO DAILY 07/26/16 09/15/16 Zolpidem [Ambien] 10 mg PO HS PRN 07/26/16 09/15/16 Aspirin [Lo-Dose Aspirin EC] 81 mg PO DAILY 09/15/16 09/15/16 Valsartan/Hydrochlorothiazide 1 tab PO DAILY 09/15/16 09/15/16 [Valsartan and Hydrochlorothiazide 12.5 mg-160] Review of Systems - Review of Systems Constitutional: Fatigue. absent: Fevers, Night Sweats Eyes: absent: Vision Changes ENT: absent: Hearing Changes Respiratory: SOB. absent: Sputum Cardiovascular: Chest Pain, Edema, CARDONA. absent: Calf Pain Gastrointestinal: Abdominal Pain, Nausea, Vomiting. absent: Diarrhea Genitourinary Female: Urine Output Changes, Other (Urinary incontinence). absent: Hematuria, Vaginal Bleeding Musculoskeletal: Myalgias, Other (Bilateral flank pain) Skin: absent: Rash Neurological: absent: Headache, Dizziness Endocrine: absent: Diaphoresis Hemo/Lymphatic: absent: Easy Bleeding Physical Exam - Physical Exam Narrative Physical Exam (Text): Head: Atraumatic. Normocephalic. Eyes: PERRL. EOMI. Conjunctivae are not pale. ENT: Mucous membranes are moist and intact. Oropharynx is clear and symmetric. Neck: Supple. Full ROM. No JVD. No lymphadenopathy. No meningeal signs. Cardiovascular: Tachycardic. Systolic murmur. Distal pulses are 2+ and symmetric. Pulmonary/Chest: Tachypneic. Mild wheezing at bases, no rales or rhonchi. No accessory muscle usage. Abdominal: Obese but soft, mild suprapubic pain and RLQ pain, no pulsatile masses, no rebound or guarding. No inguinal edema or masses palpated. Back: No CVA tenderness. Right cva tenderness. No midline pain or erythema. Extremities: Bilateral pitting edema. No cyanosis. No clubbing. Full range of motion in all extremities. No calf tenderness. Skin: Skin is warm and dry. No petechiae. No purpura. Neurological: Alert, awake, and oriented to person, place, time, and situation. Normal speech. Motor and senosory intact. Psychiatric: Good eye contact. Normal interaction, affect, and behavior. Good insight expressed in the ED. Rectal: no gross bloood Vital Signs Reviewed: Yes Vital Signs Temp Pulse Resp BP Pulse Ox 09/15/16 13:00 104 H 18 145/82 96 09/15/16 11:31 108 H 18 152/79 H 94 L 09/15/16 09:50 111 H 30 H 154/87 H 97 09/15/16 09:22 103 F H 09/15/16 09:08 117 H 23 172/106 H 88 L 09/15/16 08:40 103 F H 118 H 25 H 144/100 H 89 L Temperature: Febrile Blood Pressure: Hypertensive Pulse: Tachycardic Respiratory Rate: Tachypneic Appearance: Positive for: Uncomfortable, Other (Obese female) Pain Distress: Moderate Mental Status: Positive for: Alert and Oriented X 3 Medical Decision Making ED Course and Treatment: 09/15/16 09:06 Impression: A 60 year old female with multiple complaints. Patient notes urinary incontinence, bilateral flank pain, nausea, vomiting, shortness of breath and chest discomfort. She later does report abdominal pain. Differential Diagnosis included but are not limited to: Sepsis vs. CHF vs. DKA vs. Pyelonephritis vs. CAD vs. ND Prior Visits: Notes and results from previous visits were reviewed. Patient last seen in the ED on 08/26/16 and hospitalized for Congestive heart failure, Chest pain, Asthma exacerbation, Hypertension, Progress Notes: Patient seen immediately upon arrival appears uncomfortable complaining of back pain and shortness of breath. She is noted to be hypoxic with some wheezing. Saturations 89percent on 2l nasal cannula. Patient was noted to have back pain, right greater than left. Reportedly had recent cardiac catheterization that revealed "cardiomyopathy". Differential included chf vs. copd regarding sob. Chest xray read as follows" Report Date : 09/15/2016 09:43:46 Procedure: Chest xray Dictator : Jai Irby MD IMPRESSION: No active disease. Given unremarkable chest xray, ct angio considered although poor iv access. Duonebs given with improvement in saturations. Case d/w Dr. Pastora Antoine, accepts admission with pulmonary consultations. Place for vq scan, given abdominal/flank pain patient ordered ct abdomen/pelvis as well. UA suggestive of UTI. IV antibiotics ordered as patient is at risk for sepsis and is febrile in ED. Lactate unremarkable on re-evaluation 09/15/16 10:[address] Antoine, who requests Dr. Guevara and Dr. Michaels for consult. It is noted that patient has been seen by Dr. 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 Report Date : 09/15/2016 12:22:46 PROCEDURE: CT Chest, Abdomen and Pelvis without intravenous contrast Dictator : Jai Irby MD IMPRESSION: Extraperitoneal pelvic hematoma, right greater than left, measuring at least 9 x 14 x 8.6 cm, likely subacute. Bilateral hydroureteronephrosis, likely secondary to the large pelvic hematoma. Mild pericardial effusion. No pulmonary infiltrate. 09/15/16 12:[address] result reviewed with radiologist. Discussed findings with Dr. Ramy Damian, as requested by Dr. Antoine. Dr. Antoine also updated on case results. 09/15/16 12:37 Patient has a large hematoma, will not receive anticoagulation. On re- examination, patient denies shortness of breath, although oxygen saturation is at 93%. VQ scan has been ordered. She is significantly improved in the sense that she states back pain improved and she no longer feels short of breath. Abnormal ct findings reviewed with patient. Academic Administrator has evaluated patient in the ED. Suspect possible subacute bleeding as initial Hgb not significantly low, but will monitor closely given associated hx of COPD/cardiac disease and fever. Case endorsed to Dr. Pastora Antoine, admitting physician. Hypokalemia noted. Patient ordered iv kcl and oral kdur. No arrhythmia noted on re-evaluation. - Critical Care Critical Care Minutes: 45 minutes - Lab Interpretations Lab Results: 09/15/16 09:00 09/15/16 09:00 Lab Results 09/15/16 09:37: POC Glucose (mg/dL) 211 H 09/15/16 09:30: Urine Color Light yellow, Urine Appearance Cloudy, Urine pH 6.0 , Ur Specific Foster 1.010, Urine Protein 30 H, Urine Glucose (UA) Negative, Urine Ketones Negative, Urine Blood Moderate H, Urine Nitrate Negative, Urine Bilirubin Negative, Urine Urobilinogen 0.2, Ur Leukocyte Esterase Large H, Urine RBC 2 - 5, Urine WBC 25 - 30, Ur Epithelial Cells 0 - 2, Urine Bacteria Mod 09/15/16 09:30: pCO2 34 L, pO2 50.0 L, HCO3 27.1, ABG pH 7.51 H, ABG Total CO2 28.1 H, ABG O2 Saturation 94.3 L, ABG Base Excess 4.1 H, Glucose 158 H, Lactate 2.1, Chloride 109.0 H 09/15/16 09:00: PT 10.9, INR 1.01, APTT 28.5 09/15/16 09:00: WBC 12.1 H D, RBC 3.80, Hgb 11.6 L, Hct 34.5 L, MCV 90.8, MCH 30.5, MCHC 33.6, RDW 13.6, Plt Count 313, MPV 10.1, Gran % 90.0 H, Lymph % (Auto ) 4.8 L, [place] % (Auto) 4.9, Eos % (Auto) 0.2 L, Baso % (Auto) 0.1, Gran # 10.86 H, Lymph # 0.6 L, [place] # 0.6, Eos # 0.0, Baso # 0.01 09/15/16 09:00: Sodium 136, Potassium 2.6 L* D, Chloride 98, Carbon Dioxide 30, Anion Gap 11, BUN 7, Creatinine 0.7, Est GFR ( Amer) > 60, Est GFR (Non- Af Amer) > 60, Random Glucose 212 H, Calcium 9.1, Total Bilirubin 1.4 H, AST 45 H, ALT 35, Alkaline Phosphatase 133, Lactate Dehydrogenase 1235 H, Total Creatine Kinase 46, Troponin I 0.04 D, NT-Pro-B Natriuret Pep 556 H, Total Protein 6.9, Albumin 3.8, Globulin 3.0, Albumin/Globulin Ratio 1.3, Lipase 17 L I have reviewed the lab results: Yes - RAD Interpretation Radiology Orders: 09/15/16 09:08 CHEST PORTABLE [RAD] Stat Equal Opportunity Counselor: Radiologist - EKG Interpretation EKG Interpretation (Text): 09/15/16 15:29 EKG at 08:50 sinus tachycardia rate of 118 with possible left ventricular hypertrophy Interpreted by ED Physician: Yes Type: 12 lead EKG Comparison: Com.w/previous EKG - Medication Orders Current Medication Orders: Albuterol/Ipratropium (Duoneb 3 Mg/0.5 Mg (3 Ml) Ud) 3 ml IH [id number] KALLI Albuterol/Ipratropium (Duoneb 3 Mg/0.5 Mg (3 Ml) Ud) 3 ml IH Q2H PRN PRN Reason: Shortness of Breath Aspirin (Ecotrin) 81 mg PO DAILY KALLI Budesonide (Pulmicort Respules) 0.5 mg IH [id number] KALLI Duloxetine HCl (Cymbalta) 60 mg PO QAM KALLI Hydrochlorothiazide (Microzide) 12.5 mg PO DAILY KALLI Sodium Chloride (Sodium Chloride 0.45%) 1,000 mls @ 30 mls/hr IV .Q24H KALLI Last Admin: 09/15/16 11:13 Dose: 30 mls/hr Meropenem 1g/NS 100mL IVPB (Meropenem 1g/Ns 100ml Ivpb) 1 gm in 100 mls @ 100 mls/hr IVPB Q8 KALLI PRN Reason: Protocol Insulin Human Regular (Humulin R High) 0 units SC ACHS KALLI PRN Reason: Protocol Last Admin: 09/15/16 13:46 Dose: 2 units Levothyroxine Sodium (Synthroid) 50 mcg PO DAILY KALLI Lorazepam (Ativan) 1 mg PO Q6 PRN; Protocol PRN Reason: Anxiety Last Admin: 09/15/16 14:12 Dose: 1 mg Losartan Potassium (Cozaar) 100 mg PO DAILY [facility] Methylprednisolone (Solu-Medrol) 40 mg IVP Q12 KALLI Last Admin: 09/15/16 11:17 Dose: 40 mg Ondansetron HCl (Zofran Inj) 4 mg IVP Q4H PRN PRN Reason: Nausea/Vomiting Pantoprazole Sodium (Protonix Ec Tab) 40 mg PO DAILY KALLI Zolpidem Tartrate (Ambien) 5 mg PO HS PRN; Protocol PRN Reason: Insomnia Discontinued Medications Acetaminophen (Tylenol 325mg Tab) 650 mg PO ONCE STA Stop: 09/15/16 09:09 Last Admin: 09/15/16 09:22 Dose: 650 mg Re-Assess: MAR Pain/Vitals Document 09/15/16 10:22 EWO (Rec: 09/15/16 14:34 EWO [id number]) Pain Reassessment Is This A Pain ReAssessment? Yes Sleep Is patient sleeping during reassessment? No Presence of Pain Presence of Pain No Albuterol/Ipratropium (Duoneb 3 Mg/0.5 Mg (3 Ml) Ud) 3 ml IH Q15M KALLI Stop: 09/15/16 10:16 Last Admin: 09/15/16 11:14 Dose: 3 ml Piperacillin Sod/Tazobactam Sod (Zosyn 3.375 In Ns 100ml) 100 mls @ 200 mls/hr IVPB STAT STA PRN Reason: Protocol Stop: 09/15/16 09:39 Last Admin: 09/15/16 09:22 Dose: 200 mls/hr Potassium Chloride (Potassium Chloride 10 Meq/100 Ml) 10 meq in 100 mls @ 100 mls/hr IVPB Q2H KALLI Stop: 09/15/16 12:59 Last Admin: 09/15/16 10:20 Dose: 100 mls/hr Insulin Human Regular (Humulin R) Confirm Administered Dose 2 units .ROUTE .STK- MED ONE Stop: 09/15/16 13:35 Last Admin: 09/15/16 14:35 Dose: Iodixanol (Visipaque 320 Mg/Ml 100 Ml) Confirm Administered Dose 100 ml IV .STK- MED ONE Stop: 09/15/16 10:16 Nitroglycerin (Nitro-Bid 2% Oint) 1 ea TOP ONCE STA Stop: 09/15/16 09:10 Last Admin: 09/15/16 09:22 Dose: 1 ea Ondansetron HCl (Zofran Inj) 4 mg IVP ONCE ONE Stop: 09/15/16 09:22 Last Admin: 09/15/16 09:28 Dose: 4 mg Ondansetron HCl (Zofran Inj) Confirm Administered Dose 4 mg .ROUTE .STK-MED ONE Stop: 09/15/16 09:22 Last Admin: 09/15/16 09:28 Dose: Potassium Chloride (K-Dur 20 Meq Er Tab) 40 meq PO STAT STA Stop: 09/15/16 09:59 Last Admin: 09/15/16 10:20 Dose: 40 meq - Scribe Statement The provider has reviewed the documentation as recorded by the Sethibdotty Sweet Provider Scribe Attestation: All medical record entries made by the Scribe were at my direction and personally dictated by me. I have reviewed the chart and agree that the record accurately reflects my personal performance of the history, physical exam, medical decision making, and the department course for this patient. I have also personally directed, reviewed, and agree with the discharge instructions and disposition. Disposition/Present on Arrival - Present on Arrival Any Indicators Present on Arrival: Yes History of DVT/PE: No History of Uncontrolled Diabetes: No Urinary Catheter: Yes History of Decub. Ulcer: No History Surgical Site Infection Following: None - Disposition Have Diagnosis and Disposition been Completed?: Yes Diagnosis: Abdominal hematoma, Hydronephrosis, COPD exacerbation, Hypoxia, Fever, Urinary tract infection, Hypokalemia Disposition: HOSPITALIZED Disposition Time: 11:00 Patient Plan: Admission Patient Problems: Current Active Problems Problem Status Onset Abdominal hematoma Acute COPD exacerbation Acute Fever Acute Hydronephrosis Acute Hypoxia Acute Urinary tract infection Acute Condition: CRITICAL
[2016-09-15 09:38] LABS: BASO # 0.01 K/mm3 (0.0-2.0); BASO % 0.1 % (0.0-3.0); EOS % 0.2 % (1.5-5.0); GRAN # 10.86 (1.4-6.5); HEMATOCRIT 34.5 % (36.0-48.0); LYMPH # 0.6 (1.2-3.4); LYMPH % 4.8 % (22.0-35.0); MEAN CELL VOLUME 90.8 fL (80.0-105.0); MEAN CORPUSCULAR HEMOGLOBIN 30.5 pg (25.0-35.0); MEAN CORPUSCULAR HGB CONC 33.6 g/dl (31.0-37.0); MEAN PLATELET VOLUME 10.1 fl (7.0-11.0); MONO # 0.6 (0.1-0.6); MONO % 4.9 % (1.0-6.0); PLATELET COUNT 313 10^3/uL (120.0-450.0); RED CELL DISTRIBUTION WIDTH 13.6 % (11.5-14.5); WHITE BLOOD COUNT 12.1 10^3/ul (4.5-11.0)
[2016-09-15] MEDS: Albuterol-Ipratrop 3 mg / 0.5 (3 ml) UD IH SCH ×5 (09:44→19:50)
--- NOTE | 2016-09-15 09:45 | RAD ---
HISTORY: sob COMPARISON: 08/26/2016 FINDINGS: LUNGS: No active pulmonary disease. PLEURA: No significant pleural effusion identified, no pneumothorax apparent. CARDIOVASCULAR: Normal. OSSEOUS STRUCTURES: No significant abnormalities. VISUALIZED UPPER ABDOMEN: Normal. OTHER FINDINGS: None. IMPRESSION: No active disease.
[2016-09-15 09:47] LABS: ALB/GLOB RATIO 1.3 (1.1-1.8); ALKALINE PHOSPHATASE 133 U/L (38-133); ALT/SGPT 35 U/L (7-56); AST/SGOT 45 U/L (15-39); BILIRUBIN,TOTAL 1.4 mg/dL (0.2-1.3); BLOOD UREA NITROGEN 7 mg/dL (7-21); CALCIUM 9.1 mg/dL (8.4-10.5); CARBON DIOXIDE 30 mmol/L (21-33); CHLORIDE 98 mmol/L (98-107); GFR AFRICAN-AMERICAN > 60; GLUCOSE,RANDOM 212 mg/dL (70-110); LIPASE 17 U/L (23-300); SODIUM 136 mmol/L (132-148); TOTAL PROTEIN 6.9 g/dL (5.8-8.3)
[2016-09-15 09:51] LABS: INR 1.01 (0.93-1.08); PARTIAL THROMBOPLASTIN TIME 28.5 Seconds (23.7-30.8)
[2016-09-15 09:51] LABS: ARTERIAL BLOOD GAS HCO3 27.1 mmol/L (21-28); ARTERIAL BLOOD GAS PH 7.51 (7.35-7.45)
[2016-09-15] MEDS ORDERED: Potassium Chloride 20 mEq ER Tab PO STA (09:58)
[2016-09-15 09:59] LABS: POTASSIUM 2.6 mmol/L (3.6-5.0); TROPONIN I 0.04 ng/mL
[2016-09-15] MEDS ORDERED: Iodixanol 320 MG/ML 100 ML BOTTLE IV ONE (10:15)
[2016-09-15 10:19] LABS: URINE BILIRUBIN NEGATIVE (NEGATIVE); URINE BLOOD MODERATE (NEGATIVE); URINE GLUCOSE (UA) NEGATIVE (NEGATIVE); URINE KETONE NEGATIVE (NEGATIVE); URINE LEUKOCYTE ESTERASE LARGE Leu/uL (NEGATIVE); URINE PROTEIN 30 mg/dL (<30 mg/dL); URINE UROBILINOGEN 0.2 E.U./dL (<1 E.U./dL)
[2016-09-15 10:28] LABS: URINE APPEARANCE CLOUDY (CLEAR); URINE COLOR LIGHT YELLOW (YELLOW)
[2016-09-15 10:38] LABS: URINE BACTERIA MOD (NEG); URINE EPITHELIAL CELLS 0 - 2 /hpf (0-5); URINE WBC 25 - 30 /hpf (0-6)
[2016-09-15] MEDS ORDERED: Albuterol-Ipratrop 3 mg / 0.5 (3 ml) UD IH PRN (10:56)
[2016-09-15] MEDS: Sodium Chloride 0.45% 1,000 ML IV SCH (11:13)
[2016-09-15] MEDS: MethylPREDNISolone 40 mg Vial IVP SCH ×2 (11:17→21:30)
[2016-09-15] MEDS ORDERED: Insulin Reg-HIGH-Coverage SC SCH (11:30)
--- NOTE | 2016-09-15 12:00 | CON ---
DATE: 09/15/2016 REASON FOR CONSULTATION: Shortness of breath. REFERRING PHYSICIAN: Dr. Antoine The patient is a 60-year-old female with past medical history significant for asthma, chronic obstructive pulmonary disease, positive extensive smoking history -- still smokes, recent episode of congestive heart failure, coronary artery disease, cardiomyopathy, who presents to [facility] with a 1- day history of right flank pain, nausea and vomiting, and fevers. In addition to the above, the patient also complains of shortness of breath over the past few days. She does state to a chronic cough with sputum production -- which she states has not changed. There is no history of chest pain, coughing up of blood or chest pain -- made worse with deep respirations. As above, the patient did present with fevers. No history of chills or infectious exposure. No history of night sweats, weight loss or appetite change prior to the above events. No history of leg or calf pains. No history of syncope or diaphoresis. No history of recent travel or trauma. REVIEW OF SYSTEMS: The patient has had urinary incontinence over the past day. No new neurologic or musculoskeletal complaints. No diarrhea. Rest is negative. ALLERGIES: No known allergies. SOCIAL HISTORY: Positive for extensive tobacco usage -- still smokes, no alcohol. FAMILY HISTORY: No inheritable diseases. HOME MEDICATIONS: Include aspirin, Ambien, valsartan, Protonix, Synthroid, Ativan, Cymbalta. PHYSICAL EXAMINATION: GENERAL: The patient is mildly short of breath, but in no acute distress at the time of my examination. VITAL SIGNS: Temperatures 103.0, pulse on the monitor 95, respiratory rate 20/ 22. Blood pressure is 154/87. Oxygen saturation on nasal cannula is 94%. HEENT: Normocephalic, atraumatic. No JVD. CARDIOVASCULAR: Positive S1, S2. No S3. LUNGS: Minimal crackles at the bases. Scattered bilateral rhonchi. A few expiratory wheezes are also appreciated. EXTREMITIES: Mild edema. No cyanosis, no clubbing. Calves are nontender to palpation. GASTROINTESTINAL: Abdomen is soft, nontender, nondistended. Bowel sounds are positive. SKIN: No acute rash. NEUROLOGIC: Limited at the present time. PERTINENT LABORATORY DATA: Chest x-ray was done this morning and reviewed. There is no active disease present. CBC: White count, 12.1, hemoglobin 11.6, hematocrit 34.5, platelets of 313. Complete metabolic profile: Potassium 2.6, glucose 212, bilirubin 1.4, AST 45, LDH 1235. Troponin 0.04. B-type natriuretic peptide 556. Rest of the metabolic profile is within normal limits. Urinalysis is pending. IMPRESSION: 1. Asthma. 2. Chronic obstructive pulmonary disease. 3. Acute bronchospasm. 4. Sepsis syndrome. 5. Recent episode of congestive heart failure. 6. Coronary artery disease. 7. Cardiomyopathy. PLAN: The patient presents to [facility] with main complaints of right flank pain, nausea and vomiting and fevers for 1 day. In addition, she also states to some mild shortness of breath over the past few days. As above, she also complains of a chronic cough and sputum production -- which she states has not changed. I did review the chest x-ray as above. There is no acute disease seen. CAT scan of the chest, abdomen and pelvis have been ordered for additional evaluation. On physical exam, the patient is in mild bronchospasm. I will start nebulizer treatments and low-dose intravenous steroids. Cardiology evaluation with Dr. Michaels has been ordered -- due to her cardiomyopathy and coronary artery disease. Infectious disease evaluation with Dr. Mendoza has also been ordered. Additional pulmonary intervention will be based on the above results, as well as the clinical status of the patient. I will discuss the above with Dr. Antoine in the next few moments. Thank you very much for this pulmonary consultation. Raciel Guevara MD cc: [id number] TT: 09/15/2016 11:59:22 Confirmation # [id number] Dictation # [id number] en MTDD
[2016-09-15 12:01] LABS: VENOUS BLOOD PH 7.47 (7.32-7.43)
--- NOTE | 2016-09-15 12:06 | HP ---
HISTORY OF PRESENT ILLNESS: I was called down to the Emergency Room to see the patient. She had an appointment in my office this afternoon. She could not make it. She was short of breath, congestion , fever, urinary tract incontinence, flank pain, nausea, vomiting. She was not feeling well at all a nd came to the Emergency Room. I was called down to the Emergency Room by Dr. Keen who told me she wa nted me to be her doctor. I believe she used to see Dr. Gonzalez. She told that to me and to Dr. Keen . So I said okay, we will put her in the hospital. Apparently, she was in the intensive care unit 1 2 days ago, but she AMA'd. We discussed not leaving the hospital this time and finish the treatment. PAST MEDICAL HISTORY: Asthma, CHF, hypertension, borderline diabetes, hypothyroidism, anxiety disord er, has a history of cholecystectomy, bilateral ankle reconstruction. FAMILY HISTORY: There is hypertension in the family. SOCIAL HISTORY: She still smokes. No alcohol, no drugs. She was told never to smoke again. ALLERGIES: She has no known drug allergies. MEDICATIONS: She takes Cymbalta, Ativan, Synthroid, Protonix, Ambien, aspirin, and valsartan/hydroch lorothiazide for her hypertension. REVIEW OF SYSTEMS: No vision changes, no hearing changes. There is shortness of breath, coughing, c ongestion, wheezing. There is chest pain. There is nausea, vomiting. There is urinary incontinence , bilateral flank pain. PHYSICAL EXAMINATION: VITAL SIGNS: She has a 103 temp, 118 pulse, 30 respiratory rate, 144/100 blood pressure, 88% O2 sat on oxygen. HEENT: Head is atraumatic, normocephalic. She is toxic, uncomfortable, in distress, on oxygen. She will be going to the intensive care unit. Mouth is dry. NECK: Supple, no JVD. HEART: Tachy: Regular rate. No murmurs. LUNGS: Decreased breath sounds. Rales bilaterally, congestion bilaterally, wheezes on and off, floyd ge with cough. ABDOMEN: Soft, nondistended, positive bowel sounds, no guarding, no rebound. No CVA tenderness. EXTREMITIES: Have got a little bit of pitting edema bilaterally, +1. SKIN: Warm and dry. NEUROLOGIC: She is alert and oriented x 3, understands the situation. Normal speech. Thyroid midli ne. No palpable lymphadenopathy. She has multiple issues, some urinary incontinence, bilateral flank pain, chest pain to shortness of breath to nausea, vomiting. So there is rule out sepsis, congestive heart failure, pneumonia, diabet ic ketoacidosis, pyelonephritis, coronary artery disease, rule out myocardial infarction. Chest x-ra y showed no active disease at this time. LABORATORY DATA: She has a 12.1 white count, 11.6 hemoglobin, 34.5 hematocrit with 313 platelets. I NR is 1.01, pH of 7.51, pO2 was 50. She has a 136 sodium, potassium is low at 2.6. We are going to replace the potassium. BUN 7, creatinine 0.7, GFR is greater than 60, sugar is 211. She will be on insulin coverage. AST is 45, ALT is 35, alk phos is 133, lactate dehydrogenase is 1235, troponin 0.0 4. We will check the troponins. BNP was high at 556. We will put her on Lasix IV. Total protein 6 .9, lipase is 17. Urine is moderate blood, large leukocytes, moderate bacteria. There is a CAT scan of the chest, abdomen and pelvis that is pending. She will a consult with pulmonary, cardiology, infectious disease. We might need urology depending on the CAT scan results. She will be on IV fluids at 30. She will have Lasix IV, blood pressure med ications, IV antibiotics, Zofran and we will keep a very close eye on her. Replace the potassium. T he patient is going to the intensive care unit. Avelino Antoine DO cc: [id number] TT: 09/15/2016 12:05:44 tn
--- NOTE | 2016-09-15 12:24 | CT ---
PROCEDURE: CT Chest, Abdomen and Pelvis without intravenous contrast HISTORY: dyspnea COMPARISON: None. TECHNIQUE: Radiation dose: Total exam DLP = 1215.61 mGy-cm. This CT exam was performed using one or more of the following dose reduction techniques: Automated exposure control, adjustment of the mA and/or kV according to patient size, and/or use of iterative reconstruction technique. FINDINGS: CT CHEST WITHOUT CONTRAST: LUNGS: No infiltrate. Minimal linear scar/atelectasis both lower lobes and lingular segment left upper lobe. No pulmonary mass. MEDIASTINUM: Normal heart size. Mild pericardial effusion, nonspecific. No evidence of thoracic aortic aneurysm. Normal caliber pulmonary artery trunk. LYMPH NODES: Unremarkable. PLEURA: Unremarkable. No pneumothorax. No pleural fluid. BONES: Unremarkable. OTHER FINDINGS: None. CT ABDOMEN AND PELVIS: LIVER: Unremarkable. No gross lesion or ductal dilatation. GALLBLADDER AND BILE DUCTS: Status post cholecystectomy PANCREAS: Unremarkable. No gross lesion or ductal dilatation. SPLEEN: Unremarkable. ADRENALS: Unremarkable. No mass. KIDNEYS AND URETERS: Mild bilateral hydroureteronephrosis, right greater than left. No obstructing calculus. There is a 5 mm calcification in the upper pole right kidney associated with focal cortical defect which may be dystrophic calcification secondary to old ischemia or infection. . VASCULATURE: Unremarkable. No aortic aneurysm. BOWEL: Unremarkable. No obstruction. No gross mural thickening. APPENDIX: Normal appendix. PERITONEUM: No ascites. There is an extraperitoneal hematoma in the inferior pelvis measuring at least 9 x 14 by 8.6 cm. It surrounds the urinary bladder and compresses the bladder. A Shay catheter balloon is seen within a nondistended bladder. This hematoma is heterogeneously high in attenuation suggesting that it may represent a subacute hematoma. LYMPH NODES: Unremarkable. No enlarged lymph nodes. BLADDER: Unremarkable. REPRODUCTIVE: Status post hysterectomy BONES: No fracture. Posterior fixation L for, L5 and S1 with bilateral pedicle screws. Grade 1 anterolisthesis L5-S1. Artificial disc spacer at L5-S1. OTHER FINDINGS: None. IMPRESSION: Extraperitoneal pelvic hematoma, right greater than left, measuring at least 9 x 14 x 8.6 cm, likely subacute. Bilateral hydroureteronephrosis, likely secondary to the large pelvic hematoma. Mild pericardial effusion. No pulmonary infiltrate.
--- NOTE | 2016-09-15 12:37 | CARD ---
APPROVED REPORT EKG Measurement Heart [id number] <Conclusion> Sinus tachycardia Possible Left atrial enlargement Left ventricular hypertrophy with repolarization abnormality Abnormal ECG
--- NOTE | 2016-09-15 12:42 | CON ---
DATE: 09/15/2016 HISTORY OF PRESENT ILLNESS: The patient seen and examined at bedside. This is a 60-year-old lady with history of borderline schizophrenia, COPD, asthma, hypertension, hypothyroidism, who presented to [facility] ER with 2 days increased shortness of breath, pleuritic chest pain and cough with yellowish sputum production. The patient was mildly hypoxemic and requiring FiO2 of 3 liters per minute to maintain oxygen saturation around 91. The patient also was complaining of some diffuse abdominal discomfort and CAT scan of the abdomen and pelvis was done. Results are pending. Chest x-ray, however , did not reveal any acute pulmonary disease; however, possibility of vascular congestion could not be ruled out. No nausea, no vomiting, no diarrhea, no constipation. PAST MEDICAL HISTORY: Diabetes, hypertension, CHF, coronary artery disease, borderline schizophrenia, hypothyroidism, COPD. FAMILY HISTORY: Noncontributory. ALLERGIES: NKDA. MEDICATIONS: Aspirin, Pulmicort, Cymbalta, hydrochlorothiazide, Synthroid, valsartan, zolpidem. SOCIAL HISTORY: The patient is active smoker. No alcohol or illicit drug abuse. REVIEW OF SYSTEMS: Revealed 12 organ system, other than mentioned in history of present illness, is negative. PHYSICAL EXAMINATION: VITAL SIGNS: Oxygen saturation 91% on 3 liters nasal cannula, heart rate 105, respiratory rate 26, blood pressure 152/79. T-max 103; however, afebrile now. HEAD AND NECK: Atraumatic. LUNGS: Decreased breath sounds bilaterally. HEART: Regular rate and rhythm. S1, S2 normal. ABDOMEN: Soft, nontender, nondistended. MUSCULOSKELETAL: No C/C/E. NEUROLOGICAL: The patient moves all extremities spontaneously. SKIN: Moist. PSYCHIATRIC: The patient is alert and oriented x 3. She is not in any respiratory distress. There is no paradoxical breathing and there is no extra muscle use. The patient talks full sentences and completed them fully. LABORATORY DATA: WBC 12.1, hemoglobin 11.6, platelet count 313. Sodium 136, potassium 2.6 (potassium is getting supplemented), chloride 98, carbon dioxide 30, BUN 7, creatinine 0.7, glucose 212, AST 45, ALT 35. Troponin 0.04. ProBNP 556, lipase 17. EKG showed sinus tachycardia without clear-cut ischemic changes. ASSESSMENT AND PLAN: This is a 60-year-old lady with chronic obstructive pulmonary exacerbation. Presence of pleuritic chest pain and borderline hypoxemia is concerning for pulmonary embolism as a contributing to COPD flare. Thus, I would do a V/Q scan to rule that out. Also, I would proceed with antibiotic, steroid taper, bronchodilators, septic workup, procalcitonin level. I would continue with deep venous thrombosis and gastrointestinal prophylaxis. We will continue to target euvolemia, euglycemia, normothermia and oxygen saturation more than 90%. The patient would benefit from afterload reduction with angiotensin-converting enzyme inhibitors. I would continue beta blockers. Addendum: V/Q low probability, LE ultrasound: no DVT. CT abdo/pelvis: subacute hematoma-->agree with surgical consult. Hemodyanmically relatively stable, no bleed and Hb level stable. No need for MICU. Please re-consult ICU if patient develop respiratory distress/failue, hemodynamic instability or other signs of clinical deterioration. maintain 02sat above or equal 91% ccm time 40 min Travon Shaffer MD cc: [id number] TT: 09/15/2016 12:41:32 Confirmation # [id number] Dictation # [id number] sn MTDD
[2016-09-15] MEDS ORDERED: Insulin Regular 1 UNITS/0.01 ML ML ONE (13:34)
[2016-09-15] MEDS: Insulin Reg-HIGH-Coverage SC SCH ×3 (13:46→22:30)
--- NOTE | 2016-09-15 14:22 | CON ---
DATE: 09/15/2016 HISTORY OF PRESENT ILLNESS: The patient is a 60-year-old woman who presents with flank pain and diff icult urination. PAST MEDICAL HISTORY: Includes COPD, hypertension, CAD and recently underwent cardiac catheterizatio n from the radial as well as the right femoral artery approach. She presents with denying shortness of breath. She does suffer from hypertension, borderline diabetes mellitus, and severe COPD. SOCIAL HISTORY: The patient is an active 2 pack a day smoker. REVIEW OF SYSTEMS: A 14-point was reviewed. No angina. Mild dyspnea. Negative edema in the lower extremities noted. PHYSICAL EXAMINATION: VITAL SIGNS: Blood pressure is 152/80, the heart rate is 108, normal sinus rhythm. NECK: Negative JVD. LUNGS: Without rales. HEART: Revealed S1, S2. EXTREMITIES: Without edema. EKG reveals diffuse ST-T changes. The hemoglobin is 11.5. Chemistries: The glucose is 212 with a potassium of 2.6. CT scan revealed an extra-peritoneal hematoma of 9 cm x 14 cm x 8.6 cm near the bladder. IMPRESSION: 1. Hematoma, likely due to post-catheterization. 2. Need to rule out pseudoaneurysm. 3. Dilated cardiomyopathy. 4. Nonobstructive coronary artery disease. 5. Severe chronic obstructive pulmonary disease. 6. Obesity. 7. Hypertension. 8. Anemia, which is stable. Given these findings, we will order an ultrasound of the right groin to rule out a pseudoaneurysm. We will need to control the blood pressure better. We will add an ARSLAN inhibitor. I have discussed with the patient the need to stop smoking. Jai Michaels MD cc: [id number] TT: 09/15/2016 14:21:37 Confirmation # [id number] Dictation # [id number] en
--- NOTE | 2016-09-15 14:46 | US ---
PROCEDURE: Duplex arterial ultrasound of the right groin. HISTORY: Recent cardiac catheterization. Pain and pulsatile mass in the right groin. Evaluate for pseudoaneurysm or fistula. PHYSICIAN(S): Jai Isbell MD. FINDINGS: The right common femoral artery is patent with a normal triphasic waveform. No sonographic evidence of a pseudoaneurysm or AV fistula is seen. The right superficial femoral artery and profunda femoral artery are patent proximally. The visualized venous segments the right groin are patent and compressible. There is a 2 cm hematoma adjacent to the femoral vessels. IMPRESSION: 1. No sonographic evidence for pseudoaneurysm or AV fistula in the right groin.
--- NOTE | 2016-09-15 14:48 | CP.PCM.CON ---
History of Present Illness - History of Present Illness History of Present Illness: Surgery Consult: Dr. Damian 60F w/ PMHx of asthma, CHF, HTN, & depression who presented to [facility] with urinary incontinence for 10 days and bilateral flank pain for 1 day. Pt was in the ICU 12 days ago when she got a cardiac cath and was discovered to have non- obstructive coronary artery disease & RCA with 40% stenosis. During that admission, patient signed out AMA. This morning pt states she was feeling nauseous and had non-bloody, non-bilious emesis 5 times. She was suppose to follow up with Dr. Antoine in the office however, due to feeling very SOB she decided to come to the ER. In the ER, pt had a CT abdomen/pelvis which showed an extraperitoneal hematoma measuring 9x10cm. Surgery consulted to evaluate. Currently, pt is resting comfortably in bed and denies abdominal pain. States her breathing has improved since being in the hospital. Admits to tolerating diet and having BMs. Denies headache, numbness/tingling, hematuria, dysuria, and bloody stool. PMHx: asthma, CHF, HTN, hypothyroidism, depression, bipolar PSHx: 1977 and 1988, ankle reconstruction 1988, back surgery 2015 Family Hx: father - depression, DM, mother and brother - cerebral hemorrhage, Social Hx: 2ppd x 45yrs (90pack years), denies alcohol and illicit drug Allergies: NKDA Meds: cymbalta, ativan, synthroid, protonix, ambien, ASA, valsartan, hydrochlorothiazide Review of Systems - Review of Systems All systems: reviewed and no additional remarkable complaints except - Constitutional Constitutional: absent: Headache - Gastrointestinal Gastrointestinal: Nausea, Vomiting. absent: Abdominal Pain, Change in Bowel Habits, Melena - Genitourinary Genitourinary: Urinary Incontinence, Urinary Frequency. absent: Dysuria, Hematuria - Musculoskeletal Musculoskeletal: Back Pain Past Patient History - Past Medical History & Family History Past Medical History?: Yes Past Family History: Reviewed and not pertinent - Past Social History Smoking Status: Heavy Smoker > 10 Cigarettes Daily Alcohol: None Drugs: Denies - CARDIAC Hx Congestive Heart Failure: Yes Hx Hypertension: Yes - PULMONARY Hx Asthma: Yes - NEUROLOGICAL Hx Neurological Disorder: No - HEENT Hx HEENT Problems: No - RENAL Hx Chronic Kidney Disease: No - ENDOCRINE/METABOLIC Hx Endocrine Disorders: No Hx Hypothyroidism: Yes - HEMATOLOGICAL/ONCOLOGICAL Hx Blood Disorders: No - INTEGUMENTARY Hx Dermatological Problems: No - MUSCULOSKELETAL/RHEUMATOLOGICAL Hx Falls: No - GASTROINTESTINAL Hx Gastrointestinal Disorders: No - GENITOURINARY/GYNECOLOGICAL Hx Genitourinary Disorders: No - PSYCHIATRIC Hx Psychophysiologic Disorder: Yes Hx Anxiety: Yes Hx Bipolar Disorder: Yes Hx Depression: Yes Hx Substance Use: No - SURGICAL HISTORY Hx Surgeries: Yes Hx Cardiac Catheterization: Yes Hx Orthopedic Surgery: Yes (Bilateral ankle reconstruction, back surgery) - ANESTHESIA Hx Anesthesia: No Meds Allergies/Adverse Reactions: Allergies Allergy/AdvReac Type Severity Reaction Status Date / Time No Known Allergies Allergy Verified 09/15/16 08:46 - Medications Medications: Current Medications Albuterol/Ipratropium (Duoneb 3 Mg/0.5 Mg (3 Ml) Ud) 3 ml IH [id number] [facility] Albuterol/Ipratropium (Duoneb 3 Mg/0.5 Mg (3 Ml) Ud) 3 ml IH Q2H PRN PRN Reason: Shortness of Breath Aspirin (Ecotrin) 81 mg PO DAILY [facility] Budesonide (Pulmicort Respules) 0.5 mg IH [id number] [facility] Duloxetine HCl (Cymbalta) 60 mg PO QAM [facility] Hydrochlorothiazide (Microzide) 12.5 mg PO DAILY [facility] Sodium Chloride (Sodium Chloride 0.45%) 1,000 mls @ 30 mls/hr IV .Q24H [facility] Last Admin: 09/15/16 11:13 Dose: 30 mls/hr Insulin Human Regular (Humulin R High) 0 units SC ACHS [facility] PRN Reason: Protocol Last Admin: 09/15/16 13:46 Dose: 2 units Levothyroxine Sodium (Synthroid) 50 mcg PO DAILY [facility] Lorazepam (Ativan) 1 mg PO Q6 PRN; Protocol PRN Reason: Anxiety Last Admin: 09/15/16 14:12 Dose: 1 mg Losartan Potassium (Cozaar) 100 mg PO DAILY [facility] Methylprednisolone (Solu-Medrol) 40 mg IVP Q12 [facility] Last Admin: 09/15/16 11:17 Dose: 40 mg Ondansetron HCl (Zofran Inj) 4 mg IVP Q4H PRN PRN Reason: Nausea/Vomiting Pantoprazole Sodium (Protonix Ec Tab) 40 mg PO DAILY [facility] Zolpidem Tartrate (Ambien) 5 mg PO HS PRN; Protocol PRN Reason: Insomnia Physical Exam - Constitutional Appears: Well, No Acute Distress - Head Exam Head Exam: ATRAUMATIC, NORMOCEPHALIC - Eye Exam Eye Exam: Normal appearance - ENT Exam ENT Exam: Mucous Membranes Moist - Respiratory Exam Respiratory Exam: Clear to Auscultation Bilateral, NORMAL BREATHING PATTERN - Cardiovascular Exam Cardiovascular Exam: REGULAR RHYTHM, RRR, +S1, +S2 - GI/Abdominal Exam GI & Abdominal Exam: Normal Bowel Sounds, Soft, Tenderness (RLQ) - Extremities Exam Extremities exam: Positive for: normal inspection Additional comments: no bruising or hematoma noted in b/l groin - Back Exam Back exam: NORMAL INSPECTION - Neurological Exam Neurological exam: Alert, Oriented x3 - Psychiatric Exam Psychiatric exam: Normal Affect, Normal Mood - Skin Skin Exam: Dry, Warm Results - Vital Signs Recent Vital Signs: Last Vital Signs Temp 103 F H 09/15/16 09:22 Pulse 108 H 09/15/16 11:31 Resp 18 09/15/16 11:31 BP 152/79 H 09/15/16 11:31 Pulse Ox 94 L 09/15/16 11:31 - Labs Result Diagrams: 09/15/16 09:00 09/15/16 09:00 Labs: Laboratory Results - last 24 hr 09/15/16 09/15/16 11:49 11:50 pO2 189 H VBG pH 7.47 H VBG pCO2 45.0 VBG HCO3 32.8 H VBG Total CO2 34.2 H VBG O2 Sat (Calc) 99.2 H VBG Base Excess 8.0 H VBG Potassium 2.5 L* Sodium 137.0 Chloride 106.0 Glucose 158 H Lactate 1.1 FiO2 21.0 POC Glucose (mg/dL) 170 H Venous Blood Potassium 2.5 L* - Imaging and Cardiology CT scan - abdomen Status: Image reviewed by me, Report reviewed by me Assessment & Plan - Assessment and Plan (Free Text) Assessment: 60F w/ extraperitoneal hematoma s/p cardiac cath via RFA Plan: H/H stable at this time; will continue to monitor Serial abdominal exams Pain management F/U urology recs F/U PE studies Medical management as per primary GI/DVT prophylaxis D/W Dr. Rickie French, PGY-2 Surgery
[2016-09-15] MEDS ORDERED: Meropenem 1g/NS 100mL IVPB 100 ML IVPB SCH (15:15)
--- NOTE | 2016-09-15 15:41 | NM ---
COMPARISON: Single-view chest. September 14, 2016. CT scan Chest abdomen pelvis. TECHNIQUE: 30.0 mCi technetium 99-m DTPA aerosol. 3.30 mCI technetium 99-m MAA administered intravenously. FINDINGS: VENTILATION COMPONENT: Mildly heterogeneous ventilation. Retention of radionuclide in the central tracheobronchial tree and ingestion of radionuclide in the stomach. PERFUSION COMPONENT: Heterogeneous distribution of radionuclide. No geographic, segmental, lobar abnormalities apparent on the present examination. IMPRESSION: Low probability ventilation perfusion scan for pulmonary embolism.
[2016-09-15] MEDS ORDERED: Piperacillin/Tazobact 3.375 gm 100 ML IVPB SCH (18:00)
[2016-09-15 19:04] LABS: HEMATOCRIT 30.5 % (36.0-48.0)
[2016-09-15] MEDS: Budesonide 0.5 mg/2 ml Inhal Susp UD IH SCH (19:50)
--- NOTE | 2016-09-15 21:28 | CT ---
EXAM: CT Abdomen and Pelvis Without Intravenous Contrast CLINICAL HISTORY: 60 years old, female; Pain; Abdominal pain; Acute; Additional info: Flank pain TECHNIQUE: Axial computed tomography images of the abdomen and pelvis without intravenous contrast. This CT exam was performed using one or more of the following dose reduction techniques: automated exposure control, adjustment of the mA and/or kV according to patient size, and/or use of iterative reconstruction technique. Coronal and sagittal reformatted images were created and reviewed. COMPARISON: 09/15/2016 at 10:50 AM FINDINGS: Limitations: Lack of intravenous contrast. Lower thorax: Mild cardiomegaly. Small pericardial effusion. Patchy predominantly bandlike opacities within periphery of lung bases. ABDOMEN: Liver: Unremarkable. Gallbladder and bile ducts: Cholecystectomy. No ductal dilation. Pancreas: Unremarkable. No ductal dilation. Spleen: No splenomegaly. Adrenals: No mass. Kidneys and ureters: Mild stranding about RIGHT kidney. Few small renal calculi. Mild to moderate pelvocaliectasis of both kidneys, RIGHT slightly greater than LEFT. Moderate dilatation of both ureters, RIGHT slightly greater than LEFT. Stomach and bowel: Segmental areas of underdistention of colon. No definite mural thickening. No obstruction. Appendix: No findings to suggest acute appendicitis. PELVIS: Bladder: Shay catheter. Marked compression of bladder by pelvic masses (see below). No stones. Reproductive: Hysterectomy. ABDOMEN and PELVIS: Intraperitoneal space: No free air. Redemonstration of two large heterogeneous masses within pelvis, RIGHT greater than LEFT. Central areas of high attenuation within masses. Mild stranding within adjacent fat. Bones/joints: Postsurgical changes of lumbar spine. No acute fracture. Soft tissues: Unremarkable. Vasculature: Mild atherosclerotic disease. No abdominal aortic aneurysm. Lymph nodes: No pathologically enlarged lymph nodes. IMPRESSION: 1. Large pelvic masses, essentially unchanged from previous examination. DDX: Hematoma, hemorrhagic/hypercellular neoplasm. Clinical correlation and follow up are recommended. 2. Bilateral hydroureteronephrosis, likely secondary to mass effect. 3. Bibasilar atelectasis. Superimposed pneumonia not entirely excluded. 4. Incidental/non-acute findings are described above.
[2016-09-15] MEDS: Meropenem 1g/NS 100mL IVPB 1 GM/100 ML PIGGYBACK IVPB SCH (21:30)
[2016-09-16] MEDS: Albuterol-Ipratrop 3 mg / 0.5 (3 ml) UD IH SCH ×4 (01:45→20:45)
[2016-09-16 02:08] LABS: HEMATOCRIT 32.1 % (36.0-48.0)
[2016-09-16 07:12] LABS: ALB/GLOB RATIO 1.3 (1.1-1.8); ALKALINE PHOSPHATASE 134 U/L (38-133); ALT/SGPT 36 U/L (7-56); AST/SGOT 36 U/L (15-39); BILIRUBIN,TOTAL 0.8 mg/dL (0.2-1.3); BLOOD UREA NITROGEN 14 mg/dL (7-21); CALCIUM 9.3 mg/dL (8.4-10.5); CARBON DIOXIDE 33 mmol/L (21-33); CHLORIDE 101 mmol/L (98-107); GFR AFRICAN-AMERICAN > 60; POTASSIUM 3.3 mmol/L (3.6-5.0); SODIUM 140 mmol/L (132-148); TOTAL PROTEIN 6.9 g/dL (5.8-8.3)
[2016-09-16 07:24] LABS: GLUCOSE,RANDOM 306 mg/dL (70-110)
[2016-09-16] MEDS: Meropenem 1g/NS 100mL IVPB 1 GM/100 ML PIGGYBACK IVPB SCH ×3 (07:25→21:06)
[2016-09-16 07:40] LABS: HEMATOCRIT 32.4 % (36.0-48.0); MEAN CELL VOLUME 90.8 fL (80.0-105.0); MEAN PLATELET VOLUME 10.2 fl (7.0-11.0); RED CELL DISTRIBUTION WIDTH 13.3 % (11.5-14.5); WHITE BLOOD COUNT 10.6 10^3/ul (4.5-11.0)
[2016-09-16] MEDS: Budesonide 0.5 mg/2 ml Inhal Susp UD IH SCH ×2 (08:07→20:45)
[2016-09-16] MEDS: Insulin Reg-HIGH-Coverage SC SCH ×4 (08:35→22:30)
[2016-09-16] MEDS: Potassium Chloride 20 mEq ER Tab PO SCH (08:35)
--- NOTE | 2016-09-16 09:44 | PN ---
DATE: 09/16/2016 SUBJECTIVE: The patient appears very comfortable this morning. She is not short of breath at rest. OBJECTIVE: VITAL SIGNS: Temperature is 98.2, pulse 98, respirations 19, blood pressure 135 /76. Oxygen saturation on nasal cannula ranges between 94-99%. HEENT: Normocephalic, atraumatic. No JVD. CARDIOVASCULAR: Positive S1, S2. No S3. LUNGS: Less crackles at the bases. Much less rhonchi. No wheezing this morning. EXTREMITIES: Mild edema. No cyanosis, no clubbing. Calves are nontender to palpation. GASTROINTESTINAL: Abdomen is soft, nontender, nondistended. Bowel sounds are positive. SKIN: No acute rash. NEUROLOGIC: Limited at the present time. PERTINENT LABORATORY DATA: CAT scan of the chest was done yesterday and reviewed. There is minimal linear scarring noted at both lung bases. There is also minimal linear scarring noted in the lingular segment of the left upper lobe. There are no pulmonary nodules or masses. There are no acute infiltrates. There is no lymphadenopathy. Ventilation/perfusion scan was also done. It is low probability for pulmonary embolism. IMPRESSION: 1. Asthma. 2. Chronic obstructive pulmonary disease. 3. Acute bronchospasm. 4. Sepsis syndrome. 5. Recent episode of congestive heart failure. 6. Coronary artery disease. 7. Cardiomyopathy. PLAN: The patient appears very comfortable this morning. She is not short of breath at rest. She states she is feeling much, much better overall. On physical exam, her bronchospasm is significantly less. I will continue with the current nebulizer treatments and decrease the intravenous steroids this morning. I did review the CAT scan of the chest -- as above. There are no new/ significant findings noted. I would continue with the cardiology evaluation. Input by Dr. Michaels is noted. I would continue with the antibiotic coverage -- as per infectious disease. Input by Dr. Castro is noted. Repeat a.m. labs are pending. Clinical status of the patient is significantly improved -- compared to yesterday. I will discuss the above with Dr. Antoine. Raciel Guevara MD cc: [phone] TT: 09/16/2016 09:44:21 Confirmation # [id number] Dictation # [id number] herson GALLEGOS
[2016-09-16] MEDS ORDERED: Non Formulary Medication (Valsartan/Hydrochlorothiazide [Valsartan-Hctz 160-12.5 Mg Tab] 1 PO SCH (10:00)
--- NOTE | 2016-09-16 10:00 | CP.PCM.PN ---
Subjective - Date & Time of Evaluation Date of Evaluation: 09/16/16 Time of Evaluation: 07:00 - Subjective Subjective: Surgery: Dr. Damian Pt seen and examined. No acute overnight events. States she's feeling better today and breathing has much improved. Denies abdominal pain, N/V, F/C. Tolerating diet. Objective - Vital Signs/Intake and Output Vital Signs (last 24 hours): Temp Pulse Resp BP Pulse Ox 98.2 F 98 H 19 135/76 94 L 09/16/16 00:01 09/16/16 06:00 09/16/16 00:01 09/16/16 00:01 09/16/16 00:01 Intake and Output: 09/16/16 09/16/16 06:59 18:59 Intake Total 180 Output Total 1200 Balance -1020 - Medications Medications: Current Medications Albuterol/Ipratropium (Duoneb 3 Mg/0.5 Mg (3 Ml) Ud) 3 ml IH [id number] [facility] Last Admin: 09/16/16 08:07 Dose: 3 ml Albuterol/Ipratropium (Duoneb 3 Mg/0.5 Mg (3 Ml) Ud) 3 ml IH Q2H PRN PRN Reason: Shortness of Breath Aspirin (Ecotrin) 81 mg PO DAILY [facility] Budesonide (Pulmicort Respules) 0.5 mg IH [id number] [facility] Last Admin: 09/16/16 08:07 Dose: 0.5 mg Duloxetine HCl (Cymbalta) 60 mg PO QAM [facility] Hydrochlorothiazide (Microzide) 12.5 mg PO DAILY [facility] Sodium Chloride (Sodium Chloride 0.45%) 1,000 mls @ 30 mls/hr IV .Q24H [facility] Last Admin: 09/15/16 11:13 Dose: 30 mls/hr Meropenem 1g/NS 100mL IVPB (Meropenem 1g/Ns 100ml Ivpb) 1 gm in 100 mls @ 100 mls/hr IVPB Q8 [facility] PRN Reason: Protocol Last Admin: 09/16/16 07:25 Dose: 100 mls/hr Insulin Human Regular (Humulin R High) 0 units SC ACHS [facility] PRN Reason: Protocol Last Admin: 09/16/16 08:35 Dose: 10 units Levothyroxine Sodium (Synthroid) 50 mcg PO DAILY [facility] Lorazepam (Ativan) 1 mg PO Q6 PRN; Protocol PRN Reason: Anxiety Last Admin: 09/16/16 08:40 Dose: 1 mg Losartan Potassium (Cozaar) 100 mg PO DAILY [facility] Last Admin: 09/15/16 16:15 Dose: 100 mg Methylprednisolone (Solu-Medrol) 30 mg IVP Q12 [facility] Ondansetron HCl (Zofran Inj) 4 mg IVP Q4H PRN PRN Reason: Nausea/Vomiting Oxybutynin Chloride (Ditropan Tab) 5 mg PO TID [facility] Pantoprazole Sodium (Protonix Ec Tab) 40 mg PO DAILY [facility] Potassium Chloride (K-Dur 20 Meq Er Tab) 20 meq PO BRK [facility] Last Admin: 09/16/16 08:35 Dose: 20 meq Sitagliptin Phosphate (Januvia) 50 mg PO DAILY [facility] Zolpidem Tartrate (Ambien) 5 mg PO HS PRN; Protocol PRN Reason: Insomnia - Labs Labs: 09/16/16 06:30 09/16/16 06:30 PT 10.9 Seconds (9.9-11.8) 09/15/16 09:00 INR 1.01 (0.93-1.08) 09/15/16 09:00 APTT 28.5 Seconds (23.7-30.8) 09/15/16 09:00 - Constitutional Appears: Well, No Acute Distress - Head Exam Head Exam: ATRAUMATIC, NORMOCEPHALIC - Eye Exam Eye Exam: Normal appearance - ENT Exam ENT Exam: Mucous Membranes Moist - Respiratory Exam Respiratory Exam: NORMAL BREATHING PATTERN - Cardiovascular Exam Cardiovascular Exam: Tachycardia - GI/Abdominal Exam GI & Abdominal Exam: Soft. absent: Distended, Tenderness, Rebound - Exam Additional comments: francisco catheter in place - Extremities Exam Extremities Exam: absent: Tenderness - Neurological Exam Neurological Exam: Alert, Awake, Oriented x3 - Skin Skin Exam: Dry, Warm Assessment and Plan - Assessment and Plan (Free Text) Assessment: 60F with extraperitoneal hematoma s/p cardiac cath Plan: - H/H remains stable - no further surgical intervention warranted at this time - Continue to monitor - d/w Dr. Rickie French, PGY-2 Surgery
--- NOTE | 2016-09-16 10:04 | PN ---
DATE: 09/16/2016 I saw the patient resting comfortably in bed. She slept fairly well. She is telling me she is urina ting too much, cannot control it and needs medication for it. Otherwise, she is definitely improved with her breathing. She is here for multiple reasons, CHF, pneumonia, COPD, sepsis, DKA, dilated car diomyopathy. She now has a hematoma and she is improving. She has multiple consults. She is being seen by pulmonary, intensive care doctor, cardiology, surgery. I called in Dr. Jai Isbell to evalua te a possible pseudoaneurysm, if there is anything we can do for that. Also, urology for hydroureter onephrosis. PHYSICAL EXAMINATION: VITAL SIGNS: Temp 98.2, 98 pulse, 135/76 blood pressure, 19 respiratory rate, 94% O2 sat on nasal ca nnula. HEENT: Head is atraumatic, normocephalic. HEART: Regular rate. LUNGS: Decreased breath sounds, but clear. ABDOMEN: Soft, obese, nontender, positive bowel sounds. EXTREMITIES: Have no edema. She is currently on Ambien, Ativan, Cozaar, Cymbalta, Ditropan, DuoNeb, Ecotrin, insulin, Merrem IV, Microzide, Protonix, Pulmicort, IV fluids, Synthroid and Zofran. She has a 10.6 white count, better, 10.7 hemoglobin, 32.4 hematocrit with 334 platelets. Sodium 140, potassium is 3.3, better, but I will give her some more potassium today. Her blood sugars are still high at 211, 212, 170, now 306. I will increase the treatment for her diabetes. AST is 36, ALT is 36, alk phos 134 and her albumin is 3.8. She also had moderate bacteria. She has a urinary tract in fection. She has multiple issues going on, but I do think she is improving. We will continue with aggressive treatment and care. Hopefully, she will continue to improve. We will check her labs tomorrow and armani storm has multiple problems. Avelino Antoine DO cc: [phone] TT: 09/16/2016 10:04:14 Confirmation # [id number] Dictation # [id number] en
[2016-09-16] MEDS: Pantoprazole 40 mg EC Tab PO SCH (10:16)
[2016-09-16] MEDS: Levothyroxine 50 MCG TAB PO SCH (10:16)
[2016-09-16] MEDS: Sodium Chloride 0.45% 1,000 ML IV SCH (10:17)
[2016-09-16] MEDS: MethylPREDNISolone 40 mg Vial IVP SCH ×2 (10:17→21:06)
--- NOTE | 2016-09-16 14:02 | PN ---
DATE: 09/16/2016 The patient is in bed, comfortable, on ____ oxygen. PHYSICAL EXAMINATION: VITAL SIGNS: Blood pressure 142/79, heart rate is in the 90s. NECK: Negative JVD. LUNGS: No rales noted. HEART: Revealed S1, S2. EXTREMITIES: Without edema. LABORATORIES: Hemoglobin is 10.7. Chemistries: Glucose is 306. BUN and creatinine are unremarkabl e. Ultrasound of the right groin reveals no pseudoaneurysm. There is a hematoma that was noted. No vascular compromise is noted. IMPRESSION: 1. Chronic obstructive pulmonary disease. 2. Dilated cardiomyopathy. 3. Hematoma without pseudoaneurysm. 4. Severe chronic obstructive pulmonary disease. 5. Obesity. 6. Diabetes mellitus. 7. Hypertension. 8. Anemia. Given these findings, I had a long discussion with the patient again about her need to stop smoking. The patient is finally beginning to understand the consequences of smoking. No further cardiac workup is necessary. No intervention is necessary of her right groin hematoma. Will discontinue telemetry today. Jai Michaels MD cc: [phone] TT: 09/16/2016 14:02:08 Confirmation # [id number] Dictation # [id number] mn
--- NOTE | 2016-09-16 19:59 | CP.PCM.CON ---
History of Present Illness - History of Present Illness History of Present Illness: 60 year old female with PMH of asthma, HTN, chronic CHF, hypothyroidism, depression, bipolar disorder, obesity with BMI 39, S/P , history of ankle surgery, history of back surgery came in to [facility] because of urinary incontinence and urinary frequency for the past week and started to have flank pain a day prior to admission. The patient also had some nausea and vomiting. She denies headache or dizziness, no chest pain, no SOB, no chest palpitations, no abdominal pain, no diarrhea, no sore throat, no dysphagia. In the ED, she was noted to have fever of 103 F. The patient had a cardiac cath done more than a week ago and was found to have CAD but then she signed out against medical advice. In the ED, CT scan of the abdomen and pelvis showed pelvic hematoma. Here urine cx are showing gram negative bacilli. Infectious Diseases consult is requested to further evaluate and manage. Review of Systems - Review of Systems All systems: reviewed and no additional remarkable complaints except (as per HPI ) Past Patient History - Past Medical History & Family History Past Medical History?: Yes Past Family History: Reviewed and not pertinent - Past Social History Smoking Status: Heavy Smoker > 10 Cigarettes Daily Alcohol: None Drugs: Denies - CARDIAC Hx Congestive Heart Failure: Yes Hx Hypertension: Yes - PULMONARY Hx Asthma: Yes - NEUROLOGICAL Hx Neurological Disorder: No - HEENT Hx HEENT Problems: No - RENAL Hx Chronic Kidney Disease: No - ENDOCRINE/METABOLIC Hx Endocrine Disorders: No Hx Hypothyroidism: Yes - HEMATOLOGICAL/ONCOLOGICAL Hx Blood Disorders: No - INTEGUMENTARY Hx Dermatological Problems: No - MUSCULOSKELETAL/RHEUMATOLOGICAL Hx Falls: No - GASTROINTESTINAL Hx Gastrointestinal Disorders: No - GENITOURINARY/GYNECOLOGICAL Hx Genitourinary Disorders: No - PSYCHIATRIC Hx Psychophysiologic Disorder: Yes Hx Anxiety: Yes Hx Bipolar Disorder: Yes Hx Depression: Yes Hx Substance Use: No - SURGICAL HISTORY Hx Surgeries: Yes Hx Cardiac Catheterization: Yes Hx Orthopedic Surgery: Yes (Bilateral ankle reconstruction, back surgery) - ANESTHESIA Hx Anesthesia: No Meds Allergies/Adverse Reactions: Allergies Allergy/AdvReac Type Severity Reaction Status Date / Time No Known Allergies Allergy Verified 09/15/16 08:46 - Medications Medications: Current Medications Albuterol/Ipratropium (Duoneb 3 Mg/0.5 Mg (3 Ml) Ud) 3 ml IH [id number] [facility]ALLI Albuterol/Ipratropium (Duoneb 3 Mg/0.5 Mg (3 Ml) Ud) 3 ml IH Q2H PRN PRN Reason: Shortness of Breath Aspirin (Ecotrin) 81 mg PO DAILY [facility] Budesonide (Pulmicort Respules) 0.5 mg IH [id number] [facility] Duloxetine HCl (Cymbalta) 60 mg PO QAM [facility] Hydrochlorothiazide (Microzide) 12.5 mg PO DAILY [facility] Sodium Chloride (Sodium Chloride 0.45%) 1,000 mls @ 30 mls/hr IV .Q24H [facility] Last Admin: 09/15/16 11:13 Dose: 30 mls/hr Meropenem 1g/NS 100mL IVPB (Meropenem 1g/Ns 100ml Ivpb) 100 mls @ 100 mls/hr IVPB Q8 [facility] PRN Reason: Protocol Stop: 09/22/16 15:16 Insulin Human Regular (Humulin R High) 0 units SC ACHS [facility] PRN Reason: Protocol Last Admin: 09/15/16 13:46 Dose: 2 units Levothyroxine Sodium (Synthroid) 50 mcg PO DAILY [facility] Lorazepam (Ativan) 1 mg PO Q6 PRN; Protocol PRN Reason: Anxiety Last Admin: 09/15/16 14:12 Dose: 1 mg Losartan Potassium (Cozaar) 100 mg PO DAILY [facility] Methylprednisolone (Solu-Medrol) 40 mg IVP Q12 [facility] Last Admin: 09/15/16 11:17 Dose: 40 mg Ondansetron HCl (Zofran Inj) 4 mg IVP Q4H PRN PRN Reason: Nausea/Vomiting Pantoprazole Sodium (Protonix Ec Tab) 40 mg PO DAILY [facility] Zolpidem Tartrate (Ambien) 5 mg PO HS PRN; Protocol PRN Reason: Insomnia Physical Exam - Constitutional Appears: Non-toxic, No Acute Distress - Head Exam Head Exam: NORMAL INSPECTION - ENT Exam ENT Exam: Mucous Membranes Moist - Neck Exam Neck exam: Negative for: Lymphadenopathy, Meningismus - Respiratory Exam Respiratory Exam: Decreased Breath Sounds - Cardiovascular Exam Cardiovascular Exam: +S1, +S2 - GI/Abdominal Exam GI & Abdominal Exam: Soft. absent: Tenderness Results - Vital Signs Recent Vital Signs: Last Vital Signs Temp 103 F H 09/15/16 09:22 Pulse 108 H 09/15/16 11:31 Resp 18 09/15/16 11:31 BP 152/79 H 09/15/16 11:31 Pulse Ox 94 L 09/15/16 11:31 - Labs Result Diagrams: 09/16/16 06:30 09/16/16 06:30 Labs: Laboratory Results - last 24 hr 09/15/16 09/15/16 11:49 11:50 pO2 189 H VBG pH 7.47 H VBG pCO2 45.0 VBG HCO3 32.8 H VBG Total CO2 34.2 H VBG O2 Sat (Calc) 99.2 H VBG Base Excess 8.0 H VBG Potassium 2.5 L* Sodium 137.0 Chloride 106.0 Glucose 158 H Lactate 1.1 FiO2 21.0 POC Glucose (mg/dL) 170 H Venous Blood Potassium 2.5 L* Assessment & Plan - Assessment and Plan (Free Text) Plan: Assessment Sepsis due to gram negative bacilli UTI in a patient with a pelvic hematoma asthma CAD HTN chronic CHF hypothyroidism depression bipolar disorder obesity with BMI 39 S/P history of ankle surgery history of back surgery Plan Started patient on Merrem pending identification and sensitivities of the gram negative bacilli in the urine Follow up Surgery evaluation of the pelvic hematoma Will monitor clinically
--- NOTE | 2016-09-16 20:07 | CON ---
DATE: 09/16/2016 CHIEF COMPLAINT: Flank pain, urinary incontinence. HISTORY OF PRESENT ILLNESS: This is a 60-year-old female who apparently was recently in the hospital and had signed out against medical advice. The patient had a cardiac catheterization done. When armani storm was at home after signing out AMA, she was not doing well. She was having some shortness of breath , congestion, questionable fever and some urinary symptoms along with some low back pain. The patien dominick was supposed to see Dr. Antoine. However, she presented to the Emergency Room. A CT scan was done, which showed bilateral hydronephrosis, and a consultation was requested. The patient reports she was having increased urinary frequency with some urgency and incontinence, which she had not had gasper or to the initial hospitalization. Currently, she has a Shay catheter in place but is complaining o f some pelvic pressure and low back pain. PAST MEDICAL HISTORY: Asthma, congestive heart failure, hypertension, borderline diabetes, hypothyro idism, anxiety disorder. PAST SURGICAL HISTORY: Cholecystectomy and cardiac catheterization. MEDICATIONS: Currently include Ambien, Ativan, Cozaar, Cymbalta, Ditropan, DuoNeb, aspirin, insulin coverage, Januvia, K-Dur, meropenem, Microzide, Protonix, Pulmicort, Solu-Medrol, Synthroid, and Zofr an. ALLERGIES: No known drug allergies. FAMILY HISTORY: Noncontributory. SOCIAL HISTORY: Positive for current smoking. Denies ETOH use. REVIEW OF SYSTEMS: A 12-point review of systems was obtained. Positives as per the HPI. Also compl aining of some weakness and lethargy and some shortness of breath. Other systems are negative. PHYSICAL EXAMINATION: GENERAL: The patient is seen in her bed. She is awake, alert and answering questions. She is in no acute distress. VITAL SIGNS: She is afebrile. Temp has been 98.2, pulse of 98, BP 135/76, respirations 20. NECK: Supple. There is no adenopathy. CHEST: Reveals a normal inspiratory effort. CARDIAC: Shows positive S1, S2. There is some trace peripheral edema. ABDOMEN: Soft. There is some mild tenderness in the suprapubic region. There is no CVA tenderness. There is no obvious organomegaly. The patient is moderately obese. GENITOURINARY: There is a Shay catheter in place, which is draining concentrated-appearing urine. EXTREMITIES: There is no cyanosis. There is some trace edema. LABORATORY DATA: WBC count was 12.1; this has come down to 10.6. Hemoglobin is stable at 10.7. GFR is greater than 60 and stable. BNP elevated at 556 and LDH elevated at 1235. Lipase is low at 17. Urinalysis shows moderate blood, positive for protein, 25-30 wbc's, 2-5 rbc's, negative for nitrites . RADIOLOGIC EXAMINATION: The patient had a CT scan of the abdomen and pelvis, which showed mild bilat eral hydronephrosis, right greater than left; no obstructing stones. There is a 5 mm calcification i n the upper pole of the right kidney, which may be dystrophic calcification secondary to old ischemia or infection. Bladder was unremarkable. There is an extraperitoneal pelvic hematoma, greater on th e right side, measuring at least 9 x 14 x 8.6 cm, likely subacute. The hydronephrosis appears down t o the level of this hematoma. There is mild pericardial effusion. There is no pulmonary infiltrate. IMPRESSION AND PLAN: This is a 60-year-old female with a large pelvic hematoma after cardiac cathete rization. Urologically, the patient's symptoms of the hydronephrosis appear to be caused by the larg e pelvic hematoma. Her GFR is normal and she is not completely obstructed. Surgical consultation callahan s been requested regarding the pelvic hematoma. Most likely, the plan will be to observe with serial imaging and serial blood work. I would not place stents as the hydronephrosis should resolve with r esolution of the hematoma. Plan will be to follow this radiographically. I would plan on a repeat C T scan in a few days and we can follow the hydronephrosis with serial ultrasound exams. If the patie nt's renal function does begin to worsen, we can consider stent placement. As for her urinary incont inence, this is also likely either caused are exacerbated by the large pelvic hematoma pushing on her bladder. I would leave the Shay catheter in place at this time until patient's condition has stabi lized. Thank you for allowing us to participate in the care of this patient. We will follow her with you. Aaron Clemente MD cc: [phone] TT: 09/16/2016 20:06:49 Confirmation # [id number] Dictation # [id number] ln
--- NOTE | 2016-09-16 20:10 | CON ---
DATE: 09/16/2016 HISTORY OF PRESENT ILLNESS: The patient is seen on the floor and in the Emergency Room. She has had a complete workup, including a duplex scan showing no pseudoaneurysm and flow in the right groin. T here is a CAT scan showing a large retroperitoneal hematoma compressing the bladder, mostly on the r ight side but does extend to the left. CAT scan of the chest done on 09/15/2016 noted that the hemat jane might be heterogeneous, i.e., subacute. There is bilateral hydronephrosis, probably related to t he hematoma. Pericardial effusion mild. On physical examination, the abdomen is soft, somewhat tender , more to the right than the l. It hurts when she moves. The PT, PTT is normal. The hemoglobin has remained stable, in the 11 range. Coags are normal. Platelet count is normal. The glucose is eleva massiel at 300. The potassium is somewhat low. PHYSICAL EXAMINATION: There is nothing acute. ASSESSMENT AND PLAN: The operative note from the cardiac catheterization is reviewed. There was a di fficult puncture of the right groin, which might explain this, although it could be spontaneous. For now, the plan will be to watch without surgical intervention. Ramy Damian MD cc: [phone] TT: 09/16/2016 20:10:03 Confirmation # [id number] Dictation # [id number] ln
[2016-09-17] MEDS: Albuterol-Ipratrop 3 mg / 0.5 (3 ml) UD IH SCH ×5 (04:12→20:07)
[2016-09-17 06:42] LABS: ARTERIAL BLOOD GAS HCO3 18.6 mmol/L (21-28); ARTERIAL BLOOD GAS O2 CAPACITY 10.4 mL/dl (16-24); ARTERIAL BLOOD GAS O2 CONTENT 9.7 ML/dl (15-23); ARTERIAL BLOOD GAS PH 7.36 (7.35-7.45); ARTERIAL BLOOD HGB O2 SAT 90.1 % (95.0-98.0); CARBOXYHEMOGLOBIN 2.2 % (0.5-1.5); HHB 6.8 % (0-5)
[2016-09-17] MEDS ORDERED: Furosemide 40 mg/5 mL Oral Soln UD PO STA (06:44)
[2016-09-17] MEDS ORDERED: Nitroglycerin 2% Ointment Foilpak UD TOP ONE (06:59)
--- NOTE | 2016-09-17 07:00 | CP.PCM.PN ---
<Conchita Mccain - Last Filed: 09/17/16 07:07> Subjective - Date & Time of Evaluation Date of Evaluation: 09/17/16 Time of Evaluation: 06:59 - Subjective Subjective: Rapid Response Rapid response for SOB and SaO2 of 77%. 60 yo female with PMH of HTN, DM, CHF, CAD, hypothyriodism, COPD admitted to hospital for SOB due to COPD exacerbation. after rapid response was called her vitals were temp 98.7, BP 177/ 99, HR 105, RR 32, SaO2 of 77% and fingerstick of 235. Patient was placed on ventimask, her SaO2 improved in the 90s. ABG and cxr were ordered stat. IV Access for the patient was established. Objective - Vital Signs/Intake and Output Vital Signs (last 24 hours): Temp Pulse Resp BP Pulse Ox 98.0 F 93 H 22 125/71 94 L 09/17/16 00:01 09/17/16 00:01 09/17/16 00:01 09/17/16 00:01 09/16/16 00:01 Intake and Output: 09/16/16 09/17/16 18:59 06:59 Intake Total 840 600 Output Total 1100 1300 Balance -260 -700 - Medications Medications: Current Medications Albuterol/Ipratropium (Duoneb 3 Mg/0.5 Mg (3 Ml) Ud) 3 ml IH [id number] [facility] Last Admin: 09/17/16 05:53 Dose: 3 ml Albuterol/Ipratropium (Duoneb 3 Mg/0.5 Mg (3 Ml) Ud) 3 ml IH Q2H PRN PRN Reason: Shortness of Breath Aspirin (Ecotrin) 81 mg PO DAILY [facility] Last Admin: 09/16/16 10:16 Dose: 81 mg Budesonide (Pulmicort Respules) 0.5 mg IH [id number] [facility] Last Admin: 09/16/16 20:45 Dose: 0.5 mg Duloxetine HCl (Cymbalta) 60 mg PO QAM [facility] Last Admin: 09/16/16 10:17 Dose: 60 mg Hydrochlorothiazide (Microzide) 12.5 mg PO DAILY [facility] Last Admin: 09/16/16 10:17 Dose: 12.5 mg Sodium Chloride (Sodium Chloride 0.45%) 1,000 mls @ 30 mls/hr IV .Q24H [facility] Last Admin: 09/16/16 10:17 Dose: 30 mls/hr Meropenem 1g/NS 100mL IVPB (Meropenem 1g/Ns 100ml Ivpb) 1 gm in 100 mls @ 100 mls/hr IVPB Q8 [facility] PRN Reason: Protocol Last Admin: 09/16/16 21:06 Dose: 100 mls/hr Insulin Human Regular (Humulin R High) 0 units SC ACHS [facility] PRN Reason: Protocol Last Admin: 09/16/16 22:30 Dose: 3 units Levothyroxine Sodium (Synthroid) 50 mcg PO DAILY [facility] Last Admin: 09/16/16 10:16 Dose: 50 mcg Lorazepam (Ativan) 1 mg PO Q6 PRN; Protocol PRN Reason: Anxiety Last Admin: 09/16/16 21:06 Dose: 1 mg Losartan Potassium (Cozaar) 100 mg PO DAILY [facility] Last Admin: 09/16/16 10:17 Dose: 100 mg Methylprednisolone (Solu-Medrol) 30 mg IVP Q12 [facility] Last Admin: 09/16/16 21:06 Dose: 30 mg Ondansetron HCl (Zofran Inj) 4 mg IVP Q4H PRN PRN Reason: Nausea/Vomiting Oxybutynin Chloride (Ditropan Tab) 5 mg PO TID [facility] Last Admin: 09/16/16 18:13 Dose: 5 mg Pantoprazole Sodium (Protonix Ec Tab) 40 mg PO DAILY [facility] Last Admin: 09/16/16 10:16 Dose: 40 mg Potassium Chloride (K-Dur 20 Meq Er Tab) 20 meq PO BRK [facility] Last Admin: 09/16/16 08:35 Dose: 20 meq Sitagliptin Phosphate (Januvia) 50 mg PO DAILY [facility] Last Admin: 09/16/16 10:16 Dose: 50 mg Zolpidem Tartrate (Ambien) 5 mg PO HS PRN; Protocol PRN Reason: Insomnia Last Admin: 09/16/16 22:38 Dose: 5 mg - Labs Labs: 09/16/16 06:30 09/16/16 06:30 PT 10.9 Seconds (9.9-11.8) 09/15/16 09:00 INR 1.01 (0.93-1.08) 09/15/16 09:00 APTT 28.5 Seconds (23.7-30.8) 09/15/16 09:00 Assessment and Plan - Assessment and Plan (Free Text) Assessment: 60 yo femla with rapid response for SOB and SaO2 of 77%. - stat cxr - stat abg - lasix 40 IV - nitroglycerin - IVF stopped - Bipap <Twan Nielson P - Last Filed: 09/26/16 23:17> Objective - Vital Signs/Intake and Output Vital Signs (last 24 hours): Temp Pulse Resp BP Pulse Ox 99.1 F 102 H 22 174/113 H 95 09/17/16 16:00 09/17/16 16:00 09/17/16 16:00 09/17/16 16:00 09/17/16 16:00 - Labs Labs: 09/17/16 06:50 09/17/16 06:50 PT 10.9 Seconds (9.9-11.8) 09/15/16 09:00 INR 1.01 (0.93-1.08) 09/15/16 09:00 APTT 28.5 Seconds (23.7-30.8) 09/15/16 09:00 Attending/Attestation - Attestation I have personally seen and examined this patient.: Yes I have fully participated in the care of the patient.: Yes I have reviewed all pertinent clinical information, including history, physical exam and plan: Yes
[2016-09-17 07:01] LABS: HEMATOCRIT 33.7 % (36.0-48.0); MEAN CELL VOLUME 90.6 fL (80.0-105.0); MEAN CORPUSCULAR HEMOGLOBIN 29.6 pg (25.0-35.0); MEAN CORPUSCULAR HGB CONC 32.6 g/dl (31.0-37.0); MEAN PLATELET VOLUME 9.8 fl (7.0-11.0); RED CELL DISTRIBUTION WIDTH 13.4 % (11.5-14.5); WHITE BLOOD COUNT 14.1 10^3/ul (4.5-11.0)
[2016-09-17] MEDS: Budesonide 0.5 mg/2 ml Inhal Susp UD IH SCH ×2 (07:24→20:07)
[2016-09-17 07:58] LABS: ALB/GLOB RATIO 1.2 (1.1-1.8); ALKALINE PHOSPHATASE 120 U/L (38-133); ALT/SGPT 32 U/L (7-56); AST/SGOT 19 U/L (15-39); BILIRUBIN,TOTAL 0.5 mg/dL (0.2-1.3); BLOOD UREA NITROGEN 18 mg/dL (7-21); CALCIUM 9.5 mg/dL (8.4-10.5); CARBON DIOXIDE 31 mmol/L (21-33); CHLORIDE 102 mmol/L (98-107); GFR AFRICAN-AMERICAN > 60; GLUCOSE,RANDOM 225 mg/dL (70-110); POTASSIUM 3.3 mmol/L (3.6-5.0); SODIUM 139 mmol/L (132-148); TOTAL PROTEIN 6.9 g/dL (5.8-8.3)
[2016-09-17] MEDS: Meropenem 1g/NS 100mL IVPB 1 GM/100 ML PIGGYBACK IVPB SCH ×2 (08:07→13:00)
--- NOTE | 2016-09-17 08:29 | PN ---
DATE: 09/17/2016 She had a rapid response this morning, some shortness of breath and she is on BiPAP right now. A lit tle bit better than before. The oxygen saturation dropped into the 70s. MEDICATIONS: She is currently on IV fluids, Ambien, Ativan, Cozaar, Cymbalta, Ditropan, DuoNeb, Ecot rin, insulin coverage, Januvia, potassium, Lasix at 80 stat plus IV 40 daily, Merrem IV, Microzide, N itro-Bid, potassium replacement, Protonix, Pulmicort, I increased the Solu-Medrol to q. 8 from q. 12, Synthroid and Zofran. PHYSICAL EXAMINATION: VITAL SIGNS: 98.7 temp, 94 pulse, 145/68 blood pressure, 22 respiratory rate. HEENT: Head is atraumatic, normocephalic. She is on BiPAP. HEART: Regular rate. LUNGS: Decreased breath sounds bilaterally. ABDOMEN: Soft, obese, nontender. EXTREMITIES: No edema. LABORATORY DATA: She has a 14.1 white count (could be the steroids), 11 hemoglobin, 33.7 hematocrit, 365 platelets. Sodium 139, potassium 3.3 (she had potassium replacement), BUN 18, creatinine 0.7, G FR is greater than 60, sugar is 225 (I will tighten up the blood sugars), calcium is 9.5. AST is 19, ALT 32, alk phos is 120, total protein 6.9. She is being seen by infectious disease, surgery, urology, cardiology, pulmonology. She has multiple issues, and I will increase the steroids today, increase the Januvia. She has multiple issues: Congestive heart failure, chronic obstructive pulmonary disease, pneumonia, diabetes, dilated cardiomyopathy, abdominal hematoma, sepsis, below-knee amputation, coronary artery disease, she had a rapid response, urinary tract infection and kidney stones. Avelion Antoine DO cc: [id number] TT: 09/17/2016 08:28:58 Confirmation # [id number] Dictation # [id number] mn
[2016-09-17] MEDS: Insulin Reg-HIGH-Coverage SC SCH ×4 (08:46→21:57)
[2016-09-17] MEDS: Potassium Chloride 20 mEq ER Tab PO SCH (08:47)
[2016-09-17] MEDS: MethylPREDNISolone 40 mg Vial IVP SCH ×2 (08:48→17:12)
[2016-09-17] MEDS: Levothyroxine 50 MCG TAB PO SCH (09:41)
[2016-09-17] MEDS: Pantoprazole 40 mg EC Tab PO SCH (09:41)
--- NOTE | 2016-09-17 09:45 | PN ---
DATE: 09/17/2016 CARDIOLOGY FOLLOWUP The patient is breathing better after a rapid response this morning with dyspnea. The patient is on BiPAP. PHYSICAL EXAMINATION: VITAL SIGNS: Blood pressure is 177/70. The heart rate is in the 90s. NECK: Negative JVD. LUNGS: Decreased breath sounds without rales, without wheezing. HEART: Revealed S1, S2. EXTREMITIES: Without edema. LABORATORIES: Glucose is 225. Potassium remains 3.3. Hemoglobin is 11. IMPRESSION: 1. Exacerbation of chronic obstructive pulmonary disease. 2. Anemia. 3. Nonobstructive coronary artery disease. 4. Dilated cardiomyopathy. PLAN: Given these findings, the patient's issues are her severe COPD. I have discussed again with t he patient about the need to stop smoking. Jai Michaels MD cc: [phone] TT: 09/17/2016 08:54:31 Confirmation # [id number] Dictation # [id number] jn
--- NOTE | 2016-09-17 10:54 | RAD ---
HISTORY: rapid response COMPARISON: 09/15/2016 FINDINGS: LUNGS: No active pulmonary disease. PLEURA: No significant pleural effusion identified, no pneumothorax apparent. CARDIOVASCULAR: Moderate asymmetrical vascular congestion right greater than left OSSEOUS STRUCTURES: No significant abnormalities. VISUALIZED UPPER ABDOMEN: Normal. OTHER FINDINGS: None. IMPRESSION: Vascular congestion. No focal consolidation
--- NOTE | 2016-09-17 11:44 | PN ---
DATE: 09/17/2016 The patient was seen and examined at bedside. She had an episode of acute shortness of breath and ra pid response was called. She was on BiPAP all night. Currently she is off BiPAP. On nasal cannula, she is satting in the low 90s. PHYSICAL EXAMINATION: VITAL SIGNS: Temperature is 98.7, pulse 94, blood pressure is 145/70, respirations are 20. HEAD, EARS, NOSE AND THROAT: Atraumatic, normocephalic. CARDIOVASCULAR: S1, S2. No S3. Regular. PULMONARY: Diminished breath sounds bilaterally. GASTROINTESTINAL: Soft, nontender, no organomegaly. EXTREMITIES: No pedal edema. SKIN: Clear with no cyanosis and no skin rashes. NEUROLOGIC: No focal deficits. LABORATORY DATA: The WBC count is 14, hemoglobin is 11. Her kidney functions and liver functions ar e normal. ASSESSMENT AND PLAN: The patient with chronic obstructive pulmonary disease, congestive heart failur e, pneumonia, diabetes, cardiomyopathy, had an exacerbation of bronchospasm and respiratory insuffici ency, responded to bilevel positive airway pressure; this will continue. Will continue with garth canchola her aerosol therapy. The patient's condition is still very extremely guarded. Will communicate t he same to Dr. Antoine. Chapin Mejia MD cc: [id number] TT: 09/17/2016 11:43:32 Confirmation # [id number] Dictation # [id number] ansley
[2016-09-17] MEDS: Sodium Chloride 0.45% 1,000 ML IV SCH (14:22)
--- NOTE | 2016-09-17 15:47 | CP.PCM.PN ---
Subjective - Date & Time of Evaluation Date of Evaluation: 09/17/16 Time of Evaluation: 08:00 - Subjective Subjective: Surgery: Dr. Damian Pt seen and examined. No acute overnight events. Denies abdominal pain and states she's tolerating diet. Had some breathing difficulty this morning but feeling better now. Denies F/C. Objective - Vital Signs/Intake and Output Vital Signs (last 24 hours): Temp Pulse Resp BP Pulse Ox 98.6 F 101 H 21 149/83 94 L 09/17/16 12:00 09/17/16 12:00 09/17/16 12:00 09/17/16 12:00 09/16/16 00:01 Intake and Output: 09/17/16 09/17/16 06:59 18:59 Intake Total 900 Output Total 1300 Balance -400 - Medications Medications: Current Medications Albuterol/Ipratropium (Duoneb 3 Mg/0.5 Mg (3 Ml) Ud) 3 ml IH [id number] [facility] Last Admin: 09/17/16 15:18 Dose: Not Given Albuterol/Ipratropium (Duoneb 3 Mg/0.5 Mg (3 Ml) Ud) 3 ml IH Q2H PRN PRN Reason: Shortness of Breath Aspirin (Ecotrin) 81 mg PO DAILY [facility] Last Admin: 09/17/16 09:41 Dose: 81 mg Budesonide (Pulmicort Respules) 0.5 mg IH [id number] [facility] Last Admin: 09/17/16 07:24 Dose: 0.5 mg Duloxetine HCl (Cymbalta) 60 mg PO QAM [facility] Last Admin: 09/17/16 09:41 Dose: 60 mg Hydrochlorothiazide (Microzide) 12.5 mg PO DAILY [facility] Last Admin: 09/17/16 09:41 Dose: 12.5 mg Sodium Chloride (Sodium Chloride 0.45%) 1,000 mls @ 30 mls/hr IV .Q24H [facility] Last Admin: 09/17/16 14:22 Dose: Not Given Meropenem 1g/NS 100mL IVPB (Meropenem 1g/Ns 100ml Ivpb) 1 gm in 100 mls @ 100 mls/hr IVPB Q8 [facility]I PRN Reason: Protocol Last Admin: 09/17/16 13:00 Dose: 100 mls/hr Insulin Human Regular (Humulin R High) 0 units SC ACHS [facility]I PRN Reason: Protocol Last Admin: 09/17/16 13:02 Dose: 12 units Levothyroxine Sodium (Synthroid) 50 mcg PO DAILY [facility] Last Admin: 09/17/16 09:41 Dose: 50 mcg Lorazepam (Ativan) 1 mg PO Q6 PRN; Protocol PRN Reason: Anxiety Last Admin: 09/17/16 15:27 Dose: 1 mg Losartan Potassium (Cozaar) 100 mg PO DAILY [facility] Last Admin: 09/17/16 09:41 Dose: 100 mg Methylprednisolone (Solu-Medrol) 30 mg IVP Q8H [facility] Last Admin: 09/17/16 08:48 Dose: 30 mg Ondansetron HCl (Zofran Inj) 4 mg IVP Q4H PRN PRN Reason: Nausea/Vomiting Oxybutynin Chloride (Ditropan Tab) 5 mg PO TID [facility] Last Admin: 09/17/16 13:02 Dose: 5 mg Pantoprazole Sodium (Protonix Ec Tab) 40 mg PO DAILY [facility] Last Admin: 09/17/16 09:41 Dose: 40 mg Potassium Chloride (K-Dur 20 Meq Er Tab) 20 meq PO BRK [facility] Last Admin: 09/17/16 08:47 Dose: 20 meq Sitagliptin Phosphate (Januvia) 100 mg PO DAILY [facility] Last Admin: 09/17/16 09:41 Dose: 100 mg Zolpidem Tartrate (Ambien) 5 mg PO HS PRN; Protocol PRN Reason: Insomnia Last Admin: 09/16/16 22:38 Dose: 5 mg - Labs Labs: 09/17/16 06:50 09/17/16 06:50 PT 10.9 Seconds (9.9-11.8) 09/15/16 09:00 INR 1.01 (0.93-1.08) 09/15/16 09:00 APTT 28.5 Seconds (23.7-30.8) 09/15/16 09:00 - Constitutional Appears: Well, No Acute Distress - Head Exam Head Exam: ATRAUMATIC, NORMOCEPHALIC - ENT Exam ENT Exam: Mucous Membranes Moist - Respiratory Exam Respiratory Exam: NORMAL BREATHING PATTERN - Cardiovascular Exam Cardiovascular Exam: Tachycardia - GI/Abdominal Exam GI & Abdominal Exam: Soft. absent: Distended, Tenderness, Rebound - Extremities Exam Extremities Exam: absent: Tenderness - Neurological Exam Neurological Exam: Alert, Awake, Oriented x3 - Skin Skin Exam: Dry, Warm Assessment and Plan - Assessment and Plan (Free Text) Assessment: 60F with extraperitoneal hematoma s/p cardiac cath Plan: - H/H continues to be stable - no surgical management planned at this time - further management as per primary, pulm & cardio - d/w Dr. Rickie French, PGY-2 Surgery
[2016-09-17 18:11] VITALS: BP 174/113; PULSE 102; RESP 22; TEMP 99.1; O2SAT 95
--- NOTE | 2016-09-17 18:25 | CP.PCM.PN ---
Subjective - Date & Time of Evaluation Date of Evaluation: 09/17/16 Time of Evaluation: 18:24 - Subjective Subjective: pt needs angiocath insertion. Objective - Vital Signs/Intake and Output Vital Signs (last 24 hours): Temp Pulse Resp BP Pulse Ox 99.1 F 102 H 22 174/113 H 95 09/17/16 16:00 09/17/16 16:00 09/17/16 16:00 09/17/16 16:00 09/17/16 16:00 Intake and Output: 09/17/16 09/17/16 06:59 18:59 Intake Total 900 Output Total 1300 Balance -400 - Medications Medications: Current Medications Albuterol/Ipratropium (Duoneb 3 Mg/0.5 Mg (3 Ml) Ud) 3 ml IH [id number] [facility] Last Admin: 09/17/16 15:18 Dose: Not Given Albuterol/Ipratropium (Duoneb 3 Mg/0.5 Mg (3 Ml) Ud) 3 ml IH Q2H PRN PRN Reason: Shortness of Breath Aspirin (Ecotrin) 81 mg PO DAILY [facility] Last Admin: 09/17/16 09:41 Dose: 81 mg Budesonide (Pulmicort Respules) 0.5 mg IH [id number] [facility] Last Admin: 09/17/16 07:24 Dose: 0.5 mg Duloxetine HCl (Cymbalta) 60 mg PO QAM [facility] Last Admin: 09/17/16 09:41 Dose: 60 mg Hydrochlorothiazide (Microzide) 12.5 mg PO DAILY [facility] Last Admin: 09/17/16 09:41 Dose: 12.5 mg Sodium Chloride (Sodium Chloride 0.45%) 1,000 mls @ 30 mls/hr IV .Q24H [facility] Last Admin: 09/17/16 14:22 Dose: Not Given Meropenem 1g/NS 100mL IVPB (Meropenem 1g/Ns 100ml Ivpb) 1 gm in 100 mls @ 100 mls/hr IVPB Q8 [facility]I PRN Reason: Protocol Last Admin: 09/17/16 13:00 Dose: 100 mls/hr Insulin Human Regular (Humulin R High) 0 units SC ACHS [facility]I PRN Reason: Protocol Last Admin: 09/17/16 17:09 Dose: 7 units Levothyroxine Sodium (Synthroid) 50 mcg PO DAILY [facility] Last Admin: 09/17/16 09:41 Dose: 50 mcg Lorazepam (Ativan) 1 mg PO Q6 PRN; Protocol PRN Reason: Anxiety Last Admin: 09/17/16 15:27 Dose: 1 mg Losartan Potassium (Cozaar) 100 mg PO DAILY [facility] Last Admin: 09/17/16 09:41 Dose: 100 mg Methylprednisolone (Solu-Medrol) 30 mg IVP Q8H [facility] Last Admin: 09/17/16 17:12 Dose: 30 mg Ondansetron HCl (Zofran Inj) 4 mg IVP Q4H PRN PRN Reason: Nausea/Vomiting Oxybutynin Chloride (Ditropan Tab) 5 mg PO TID [facility] Last Admin: 09/17/16 13:02 Dose: 5 mg Pantoprazole Sodium (Protonix Ec Tab) 40 mg PO DAILY [facility] Last Admin: 09/17/16 09:41 Dose: 40 mg Potassium Chloride (K-Dur 20 Meq Er Tab) 20 meq PO BRK [facility] Last Admin: 09/17/16 08:47 Dose: 20 meq Sitagliptin Phosphate (Januvia) 100 mg PO DAILY [facility] Last Admin: 09/17/16 09:41 Dose: 100 mg Zolpidem Tartrate (Ambien) 5 mg PO HS PRN; Protocol PRN Reason: Insomnia Last Admin: 09/16/16 22:38 Dose: 5 mg - Labs Labs: 09/17/16 06:50 09/17/16 06:50 PT 10.9 Seconds (9.9-11.8) 09/15/16 09:00 INR 1.01 (0.93-1.08) 09/15/16 09:00 APTT 28.5 Seconds (23.7-30.8) 09/15/16 09:00 Assessment and Plan - Assessment and Plan (Free Text) Assessment: 24 guage angiocath inserted in left little finger.
--- NOTE | 2016-09-17 21:07 | CP.PCM.PN ---
Subjective - Date & Time of Evaluation Date of Evaluation: 09/17/16 Time of Evaluation: 09:20 - Subjective Subjective: Comfortable, still with pelvic pain but less, not in distress. Objective - Vital Signs/Intake and Output Vital Signs (last 24 hours): Temp Pulse Resp BP Pulse Ox 99.1 F 102 H 22 174/113 H 95 09/17/16 16:00 09/17/16 16:00 09/17/16 16:00 09/17/16 16:00 09/17/16 16:00 - Medications Medications: Current Medications Albuterol/Ipratropium (Duoneb 3 Mg/0.5 Mg (3 Ml) Ud) 3 ml IH [id number] [facility] Last Admin: 09/17/16 20:07 Dose: Not Given Albuterol/Ipratropium (Duoneb 3 Mg/0.5 Mg (3 Ml) Ud) 3 ml IH Q2H PRN PRN Reason: Shortness of Breath Aspirin (Ecotrin) 81 mg PO DAILY [facility] Last Admin: 09/17/16 09:41 Dose: 81 mg Budesonide (Pulmicort Respules) 0.5 mg IH [id number] [facility] Last Admin: 09/17/16 20:07 Dose: Not Given Duloxetine HCl (Cymbalta) 60 mg PO QAM [facility] Last Admin: 09/17/16 09:41 Dose: 60 mg Hydrochlorothiazide (Microzide) 12.5 mg PO DAILY [facility] Last Admin: 09/17/16 09:41 Dose: 12.5 mg Sodium Chloride (Sodium Chloride 0.45%) 1,000 mls @ 30 mls/hr IV .Q24H [facility] Last Admin: 09/17/16 14:22 Dose: Not Given Meropenem 1g/NS 100mL IVPB (Meropenem 1g/Ns 100ml Ivpb) 1 gm in 100 mls @ 100 mls/hr IVPB Q8 [facility] PRN Reason: Protocol Last Admin: 09/17/16 13:00 Dose: 100 mls/hr Insulin Human Regular (Humulin R High) 0 units SC ACHS [facility] PRN Reason: Protocol Last Admin: 09/17/16 17:09 Dose: 7 units Levothyroxine Sodium (Synthroid) 50 mcg PO DAILY [facility] Last Admin: 09/17/16 09:41 Dose: 50 mcg Lorazepam (Ativan) 1 mg PO Q6 PRN; Protocol PRN Reason: Anxiety Last Admin: 09/17/16 15:27 Dose: 1 mg Losartan Potassium (Cozaar) 100 mg PO DAILY [facility] Last Admin: 09/17/16 09:41 Dose: 100 mg Methylprednisolone (Solu-Medrol) 30 mg IVP Q8H [facility] Last Admin: 09/17/16 17:12 Dose: 30 mg Ondansetron HCl (Zofran Inj) 4 mg IVP Q4H PRN PRN Reason: Nausea/Vomiting Oxybutynin Chloride (Ditropan Tab) 5 mg PO TID [facility] Last Admin: 09/17/16 13:02 Dose: 5 mg Pantoprazole Sodium (Protonix Ec Tab) 40 mg PO DAILY [facility] Last Admin: 09/17/16 09:41 Dose: 40 mg Potassium Chloride (K-Dur 20 Meq Er Tab) 20 meq PO BRK [facility] Last Admin: 09/17/16 08:47 Dose: 20 meq Sitagliptin Phosphate (Januvia) 100 mg PO DAILY [facility] Last Admin: 09/17/16 09:41 Dose: 100 mg Zolpidem Tartrate (Ambien) 5 mg PO HS PRN; Protocol PRN Reason: Insomnia Last Admin: 09/16/16 22:38 Dose: 5 mg - Labs Labs: 09/17/16 06:50 09/17/16 06:50 PT 10.9 Seconds (9.9-11.8) 09/15/16 09:00 INR 1.01 (0.93-1.08) 09/15/16 09:00 APTT 28.5 Seconds (23.7-30.8) 09/15/16 09:00 - Constitutional Appears: Non-toxic, No Acute Distress - Head Exam Head Exam: NORMAL INSPECTION - ENT Exam ENT Exam: Mucous Membranes Moist - Neck Exam Neck Exam: absent: Lymphadenopathy, Meningismus - Respiratory Exam Respiratory Exam: Decreased Breath Sounds - Cardiovascular Exam Cardiovascular Exam: +S1, +S2 - GI/Abdominal Exam GI & Abdominal Exam: Soft. absent: Tenderness Assessment and Plan - Assessment and Plan (Free Text) Plan: Assessment Sepsis due to E. coli UTI in a patient with a pelvic hematoma asthma CAD HTN chronic CHF hypothyroidism depression bipolar disorder obesity with BMI 39 S/P history of ankle surgery history of back surgery Plan switch Merrem to Cefazolin (day 2 total antibiotics) Surgery monitoring pelvic hematoma Will monitor clinically
[2016-09-17] MEDS ORDERED: ceFAZolin 1 gm in NS 1 GM/100 ML BAG IVPB SCH (22:00)
[2016-09-18] MEDS: MethylPREDNISolone 40 mg Vial IVP SCH (01:22)
[2016-09-18] MEDS: Albuterol-Ipratrop 3 mg / 0.5 (3 ml) UD IH SCH (01:56)
--- NOTE | 2016-10-02 12:33 | DS ---
She was in the hospital for numerous reasons, pelvic pain, urinary tract infection, pelvic hematoma. She has asthma, coronary artery disease, hypertension, chronic congestive heart failure, hypothyroid ism, depression, bipolar, obesity. She was on Merrem IV and she AMA'd. She left the hospital agains t medical advice despite being told that she is sick with an infection, the blood cultures are not ba ck and she could get much worse. She left anyway. She had done this before from the intensive care unit the last time she was in the hospital and she AMA'd again. She is very sick. She did not want to listen and she left against medical advice. Avelino Antoine DO cc: [id number] TT: 10/02/2016 12:33:03 en
== END 2016-09-18 04:58 | disposition left against medical advice (07) | DRG 871 ==
LOC: ED 08:40 → UNDOADMIN 10:09 → ERH 10:09 → MERGE 10:24 → ERH 10:24 → 2RNO 16:32 → 5RSO 09-17 15:50
PROVIDERS: ADMIT Family Medicine; ATTEND Family Medicine
PROC: 5A09357 Assistance with Respiratory Ventilation, Less than 24 Consecutive Hours, Continuous Positive Airway Pressure (ICD-10-PCS; principal; 2016-09-17)
DX: A41.9 Sepsis, unspecified organism (principal); J18.9 Pneumonia, unspecified organism; I11.0 Hypertensive heart disease with heart failure; I42.0 Dilated cardiomyopathy; I31.3 Pericardial effusion (noninflammatory); I50.9 Heart failure, unspecified; J44.0 Chronic obstructive pulmonary disease with (acute) lower respiratory infection; N39.0 Urinary tract infection, site not specified; N13.2 Hydronephrosis with renal and ureteral calculous obstruction; J44.1 Chronic obstructive pulmonary disease with (acute) exacerbation; I97.630 Postprocedural hematoma of a circulatory system organ or structure following a cardiac catheterization; B96.20 Unspecified Escherichia coli [E. coli] as the cause of diseases classified elsewhere; E66.9 Obesity, unspecified; D64.9 Anemia, unspecified; I25.10 Atherosclerotic heart disease of native coronary artery without angina pectoris; J45.909 Unspecified asthma, uncomplicated; E03.9 Hypothyroidism, unspecified; F31.9 Bipolar disorder, unspecified; F17.210 Nicotine dependence, cigarettes, uncomplicated; R73.03 Prediabetes; F41.9 Anxiety disorder, unspecified; Y83.8 Other surgical procedures as the cause of abnormal reaction of the patient, or of later complication, without mention of misadventure at the time of the procedure; Z68.39 Body mass index [BMI] 39.0-39.9, adult; Z79.82 Long term (current) use of aspirin

== ENCOUNTER 2017-02-14 07:01 | Inpatient (IN) | payer BC, MEDICARE ==
[2017-02-14 07:01] VITALS: PULSE 89
[2017-02-14] MEDS: Albuterol-Ipratrop 3 mg / 0.5 (3 ml) UD IH SCH ×5 (07:45→19:44)
--- NOTE | 2017-02-14 07:51 | ED PDOC ---
Arrival/HPI - General Chief Complaint: Shortness Of Breath Time Seen by Provider: 02/14/17 07:15 Historian: Patient - History of Present Illness Narrative History of Present Illness (Text): 02/14/17 07:30 A 61 year old female smoker, whose past medical history includes asthma exacerbation, COPD, presents to the emergency department for "congestion" associated with productive cough and shortness of breath for "a few days" but worse last night. Denies chest pain or hemoptysis. Denies pleuritic pain. Denies abdominal pain. Denies nausea or vomiting. Denies leg pain or swelling. Denies numbness or weakness. Time/Duration: < week (x 3 days ) Symptom Onset: Sudden Symptom Course: Unchanged Context: Home Past Medical History - Provider Review Nursing Documentation Reviewed: Yes - Cardiac Hx Cardiac Disorders: Yes Hx Congestive Heart Failure: Yes Hx Hypertension: Yes - Pulmonary Hx Respiratory Disorders: Yes Hx Asthma: Yes - Neurological Hx Neurological Disorder: No - HEENT Hx HEENT Disorder: No - Renal Hx Renal Disorder: No - Endocrine/Metabolic Hx Endocrine Disorders: Yes Hx Diabetes Mellitus Type 2: Yes Hx Hypothyroidism: Yes - Hematological/Oncological Hx Blood Disorders: No - Integumentary Hx Dermatological Disorder: No - Musculoskeletal/Rheumatological Hx Musculoskeletal Disorders: No Hx Falls: No - Gastrointestinal Hx Gastrointestinal Disorders: No - Genitourinary/Gynecological Hx Genitourinary Disorders: No - Psychiatric Hx Psychophysiologic Disorder: Yes Hx Anxiety: Yes Hx Bipolar Disorder: Yes Hx Depression: Yes Hx Substance Use: No - Surgical History Hx Cardiac Catheterization: Yes Hx Section: Yes Hx Orthopedic Surgery: Yes (Bilateral ankle reconstruction, back surgery) - Anesthesia Hx Anesthesia: No Family/Social History - Physician Review Nursing Documentation Reviewed: Yes Family/Social History: Unknown Family HX Smoking Status: Current Some Days Smoker Hx Alcohol Use: No Hx Substance Use: No 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 Allergies/Home Meds Allergies/Adverse Reactions: Allergies No Known Allergies Allergy (Verified 02/14/17 07:23) Home Medications: Home Meds Medication Instructions Recorded Confirmed Benztropine [Cogentin] 1 tab PO DAILY 01/29/15 02/14/17 DULoxetine [Cymbalta] 60 mg PO DAILY 01/29/15 02/14/17 Levothyroxine [Synthroid] 0.05 mg PO DAILY 01/29/15 02/14/17 LORazepam [Ativan] 1 mg PO Q6 PRN 07/26/16 02/14/17 Pantoprazole Sodium [Protonix] 40 mg PO DAILY 07/26/16 02/14/17 Zolpidem [Ambien] 10 mg PO HS PRN 07/26/16 02/14/17 Aspirin [Lo-Dose Aspirin EC] 81 mg PO DAILY 09/15/16 02/14/17 Valsartan/Hydrochlorothiazide 1 tab PO DAILY 09/15/16 02/14/17 [Valsartan and Hydrochlorothiazide 12.5 mg-160] Paliperidone Palmitate [Invega 156 mg IM .MONTHLY 02/14/17 02/14/17 Sustenna] Tolterodine Tartrate [Tolterodine 1 tab PO DAILY 02/14/17 02/14/17 Tartrate ER] Review of Systems - Review of Systems Constitutional: Fatigue. absent: Fevers Eyes: absent: Vision Changes, Eye Pain ENT: Rhinorrhea, Sinus Congestion. absent: Hearing Changes, Voice Changes, Sore Throat Respiratory: SOB, Cough, Sputum, Wheezing Cardiovascular: CARDONA. absent: Chest Pain, Palpitations, Edema, Calf Pain Gastrointestinal: absent: Abdominal Pain, Nausea Genitourinary Female: absent: Frequency, Hematuria Musculoskeletal: absent: Neck Pain Skin: absent: Rash Neurological: absent: Headache, Dizziness, Focal Weakness Endocrine: absent: Polyuria Physical Exam - Physical Exam Narrative Physical Exam (Text): 02/14/17 07:49 Head: Atraumatic. Normocephalic. Eyes: PERRL. EOMI. Conjunctivae are not pale. ENT: Mucous membranes are moist and intact. Oropharynx is clear and symmetric. No facial edema or erythema. No stridor. Neck: Supple. Full ROM. No JVD. No lymphadenopathy. Cardiovascular: Regular rate. Regular rhythm. No murmurs, rubs, or gallops. Distal pulses are 2+ and symmetric. Pulmonary/Chest: Diffuse wheezing. tachypneic. No accessory muscle usage. Abdominal: Soft and non-distended. There is no tenderness. No rebound, guarding, or rigidity. No organomegaly. Good bowel sounds. Back: No CVA tenderness. No midline tenderness. Extremities: No edema. No cyanosis. No clubbing. Full range of motion in all extremities. No calf tenderness. Skin: Skin is warm and dry. No petechiae. No purpura. Neurological: Alert, awake, and oriented. Motor and sensory exam intact. Psychiatric: Good eye contact. Normal interaction, affect, and behavior. Vital Signs Reviewed: Yes Vital Signs Temp Pulse Resp BP Pulse Ox 02/14/17 09:35 97 H 17 170/90 H 94 L 02/14/17 07:30 95 02/14/17 07:23 98.4 F 95 H 18 168/97 H 89 L Temperature: Afebrile Blood Pressure: Hypertensive Pulse: Tachycardic Respiratory Rate: Tachypneic Appearance: Positive for: Uncomfortable Pain Distress: Moderate Mental Status: Positive for: Alert and Oriented X 3 Medical Decision Making ED Course and Treatment: 02/14/17 07:51 Impression: A 61 year old female with shortness of breath and cough attacks. Differential Diagnosis included but are not limited to: Plan: -- EKG -- Chest X-ray -- Labs -- Douneb, Solu-medrol -- Urinalysis -- Reassess and disposition Prior Visits: Notes and results from previous visits were reviewed. The patient was last seen in the emergency department on 09/15/16 for shortness of breath. The patient was hospitalized. Progress Notes: Patient on intial examination is hypoxia, tachypneic, diffuse wheezing noted. She continues to smoke, suspect likely asthma exacerbation vs. copd exacerbation. She is alert oriented, not lethargic. She was placed on nasal cannula oxygen with improvement in oxygen saturations, nebulizers and iv steroids ordered. Plan to admit for asthma exacerbation, will reassess after nebulizers and review of labs and chest xray. Chest xray unremarkable as per radiology interpretation. Patient on re-exam states she feels better, however wheezing persists. No chest pain or pleuritic discomfort. Patient evaluated by Dr. Alfredo, public health nurse, as symptoms improved agrees to admission to telemetry bed at this time. Case discussed with Dr. Pastora Antoine who admits patient to his service. - Lab Interpretations Lab Results: 02/14/17 08:24 02/14/17 08:24 Lab Results 02/14/17 08:24: Sodium 140, Chloride 101, Potassium 3.4 L, Carbon Dioxide 29, Anion Gap 13, BUN 9, Creatinine 0.6 L, Est GFR ( Amer) > 60, Est GFR (Non -Af Amer) > 60, Random Glucose 139 H, Calcium 9.0, Magnesium 1.9, Total Bilirubin 0.5, AST 30, ALT 39, Alkaline Phosphatase 112, Lactate Dehydrogenase 488, Total Creatine Kinase 132, Troponin I 0.03 D, NT-Pro-B Natriuret Pep 816 H , Total Protein 6.8, Albumin 4.0, Globulin 2.7, Albumin/Globulin Ratio 1.5 02/14/17 08:24: pO2 50, VBG pH 7.39, VBG pCO2 54.0, VBG HCO3 32.7 H, VBG Total CO2 34.4 H, VBG O2 Sat (Calc) 91.2 H, VBG Base Excess 6.2 H, VBG Potassium 3.3 L , Sodium 139.0, Chloride 102.0, Glucose 138 H, Lactate 1.5, FiO2 21.0, Venous Blood Potassium 3.3 L 02/14/17 08:24: PT 11.3, INR 1.03, APTT 28.6 02/14/17 08:24: WBC 8.2 D, RBC 4.59, Hgb 14.0, Hct 41.8, MCV 91.1, MCH 30.5, MCHC 33.5, RDW 14.3, Plt Count 242, MPV 10.7, Gran % 70.6 H, Lymph % (Auto) 20.6 L, [place] % (Auto) 6.8 H, Eos % (Auto) 1.8, Baso % (Auto) 0.2, Gran # 5.80, Lymph # 1.7, [place] # 0.6, Eos # 0.2, Baso # 0.02 02/14/17 08:20: pCO2 43, pO2 44.0 L*, HCO3 29.9 H, ABG pH 7.45, ABG Total CO2 31.2 H, ABG O2 Saturation 88.6 L, ABG Base Excess 5.2 H, ABG Potassium 3.2 L, Sodium 140.0, Chloride 105.0, Glucose Pending, Lactate 1.4, FiO2 21.0, Arterial Blood Potassium 3.2 L - RAD Interpretation Radiology Orders: 02/14/17 07:29 CHEST PORTABLE [RAD] Stat - EKG Interpretation EKG Interpretation (Text): 02/14/17 08:22 sinus tachycardia rate of [address] elevations Interpreted by ED Physician: Yes Type: 12 lead EKG - Medication Orders Current Medication Orders: Albuterol/Ipratropium (Duoneb 3 Mg/0.5 Mg (3 Ml) Ud) 3 ml IH [id number] [facility] Last Admin: 02/14/17 13:40 Dose: 3 ml Aspirin (Ecotrin) 81 mg PO DAILY [facility] Benztropine Mesylate (Cogentin) 1 mg PO DAILY [facility] Duloxetine HCl (Cymbalta) 60 mg PO DAILY [facility] Hydrochlorothiazide (Microzide) 12.5 mg PO DAILY [facility] Insulin Human Regular (Humulin R High) 0 units SC ACHS [facility]I PRN Reason: Protocol Levothyroxine Sodium (Synthroid) 50 mcg PO DAILY [facility] Lorazepam (Ativan) 1 mg PO Q6 PRN; Protocol PRN Reason: Anxiety Last Admin: 02/14/17 12:43 Dose: 1 mg Behavioural Document 02/14/17 12:43 RDS (Rec: 02/14/17 12:43 RDS [id number]) Maintenance Maintenance Dose No Nonmedicinal Nonmedicinal Interventions Therapeutic Communication Behavior Behavior for Medication: Anxiety Losartan Potassium (Cozaar) 1 mg PO DAILY [facility] Methylprednisolone (Solu-Medrol) 40 mg IVP Q8 [facility]I Pantoprazole Sodium (Protonix Ec Tab) 40 mg PO DAILY [facility] Tolterodine Tartrate (Detrol La) 1 mg PO DAILY [facility] Zolpidem Tartrate (Ambien) 10 mg PO HS PRN; Protocol PRN Reason: Insomnia Discontinued Medications Albuterol/Ipratropium (Duoneb 3 Mg/0.5 Mg (3 Ml) Ud) 3 ml IH Q15M [facility] Stop: 02/14/17 08:01 Last Admin: 02/14/17 08:15 Dose: 3 ml Losartan Potassium (Cozaar) 160 mg PO STAT STA Stop: 02/14/17 10:47 Last Admin: 02/14/17 11:03 Dose: 160 mg Methylprednisolone (Solu-Medrol) 125 mg IVP STAT STA Stop: 02/14/17 07:31 Last Admin: 02/14/17 08:00 Dose: 125 mg IVP Administration Document 02/14/17 08:00 (Rec: 02/14/17 08:45 [id number]) Charges for Administration # of IVP Administrations 1 Potassium Chloride (K-Dur 20 Meq Er Tab) 20 meq PO STAT STA Stop: 02/14/17 10:46 Last Admin: 02/14/17 11:03 Dose: 20 meq - Scribe Statement The provider has reviewed the documentation as recorded by the Sethibe Ena Clarke Provider Scribe Attestation: All medical record entries made by the Scribe were at my direction and personally dictated by me. I have reviewed the chart and agree that the record accurately reflects my personal performance of the history, physical exam, medical decision making, and the department course for this patient. I have also personally directed, reviewed, and agree with the discharge instructions and disposition. Disposition/Present on Arrival - Present on Arrival Any Indicators Present on Arrival: Yes History of DVT/PE: No History of Uncontrolled Diabetes: Yes Urinary Catheter: No History of Decub. Ulcer: No History Surgical Site Infection Following: None - Disposition Have Diagnosis and Disposition been Completed?: Yes Diagnosis: Asthma exacerbation, COPD exacerbation Disposition: HOSPITALIZED Disposition Time: 08:24 Patient Plan: Admission, Telemetry Patient Problems: Current Active Problems Problem Status Onset Asthma exacerbation Acute COPD exacerbation Acute Condition: SERIOUS
[2017-02-14 08:30] LABS: VENOUS BLOOD GAS BASE EXCESS 6.2 mmol/L (0.0-2.0); VENOUS BLOOD PH 7.39 (7.32-7.43)
[2017-02-14 08:33] LABS: ARTERIAL BLOOD GAS HCO3 29.9 mmol/L (21-28); ARTERIAL BLOOD GAS PH 7.45 (7.35-7.45)
[2017-02-14 08:40] LABS: ALB/GLOB RATIO 1.5 (1.1-1.8); ALKALINE PHOSPHATASE 112 U/L (38-126); ALT/SGPT 39 U/L (7-56); AST/SGOT 30 U/L (14-36); BILIRUBIN,TOTAL 0.5 mg/dL (0.2-1.3); BLOOD UREA NITROGEN 9 mg/dL (7-21); CARBON DIOXIDE 29 mmol/L (21-33); CHLORIDE 101 mmol/L (98-107); GFR AFRICAN-AMERICAN > 60; GLUCOSE,RANDOM 139 mg/dL (70-110); MAGNESIUM 1.9 mg/dL (1.7-2.2); POTASSIUM 3.4 mmol/L (3.6-5.0); SODIUM 140 mmol/L (132-148); TOTAL PROTEIN 6.8 g/dL (5.8-8.3)
[2017-02-14 08:41] LABS: BASO # 0.02 K/mm3 (0.0-2.0); BASO % 0.2 % (0.0-3.0); EOS # 0.2 (0.0-0.7); EOS % 1.8 % (1.5-5.0); GRAN # 5.8 (1.4-6.5); GRAN % 70.6 % (50.0-68.0); HEMATOCRIT 41.8 % (36.0-48.0); LYMPH # 1.7 (1.2-3.4); LYMPH % 20.6 % (22.0-35.0); MEAN CELL VOLUME 91.1 fl (80.0-105.0); MEAN CORPUSCULAR HEMOGLOBIN 30.5 pg (25.0-35.0); MEAN CORPUSCULAR HGB CONC 33.5 g/dl (31.0-37.0); MEAN PLATELET VOLUME 10.7 fl (7.0-11.0); MONO # 0.6 (0.1-0.6); MONO % 6.8 % (1.0-6.0); RED CELL DISTRIBUTION WIDTH 14.3 % (11.5-14.5); WHITE BLOOD COUNT 8.2 10^3/ul (4.5-11.0)
[2017-02-14 08:46] LABS: INR 1.03 (0.93-1.08)
[2017-02-14 08:47] LABS: PARTIAL THROMBOPLASTIN TIME 28.6 Seconds (25.1-36.5)
[2017-02-14 08:51] LABS: TROPONIN I 0.03 ng/mL
[2017-02-14] MEDS ORDERED: Potassium Chloride 20 mEq ER Tab PO STA (10:45)
--- NOTE | 2017-02-14 10:49 | RAD ---
HISTORY: sob COMPARISON: 09/17/2016 FINDINGS: LUNGS: No active pulmonary disease. PLEURA: No significant pleural effusion identified, no pneumothorax apparent. CARDIOVASCULAR: Mild cardiomegaly OSSEOUS STRUCTURES: No significant abnormalities. VISUALIZED UPPER ABDOMEN: Normal. OTHER FINDINGS: None. IMPRESSION: No active disease.
[2017-02-14] MEDS: MethylPREDNISolone 40 mg Vial IVP SCH ×2 (14:55→21:48)
[2017-02-14 15:29] VITALS: BMI 38.7
[2017-02-14] MEDS: Insulin Reg-HIGH-Coverage SC SCH ×2 (17:54→22:52)
--- NOTE | 2017-02-14 20:30 | CP.PCM.PN ---
Subjective - Date & Time of Evaluation Date of Evaluation: 02/14/17 Time of Evaluation: 20:30 - Subjective Subjective: Patient was seen at bedside because she complained of cough. Has no expectorant. Cough has been present since . Has no other acute symptoms at this time. Denies chest pain, sob, nausea, sweating , palpitations. This 61 year old woman was admitted with exacerbation of asthma, cough ,congestion,hypokalemia. Has PMH of asthma ,COPD,bronchitis, obesity, tobacco dependence, DM II, CHF, HTN ,anxiety, depression, Cardiac catheterization, , bilateral knee reconstruction surgery, back surgery. Objective - Vital Signs/Intake and Output Vital Signs (last 24 hours): Temp Pulse Resp BP Pulse Ox 99.2 F 122 H 19 164/94 H 94 L 02/14/17 18:00 02/14/17 18:00 02/14/17 18:00 02/14/17 18:00 02/14/17 09:35 - Medications Medications: Current Medications Albuterol/Ipratropium (Duoneb 3 Mg/0.5 Mg (3 Ml) Ud) 3 ml IH [id number] [facility] Last Admin: 02/14/17 19:44 Dose: 3 ml Aspirin (Ecotrin) 81 mg PO DAILY KALLI Benztropine Mesylate (Cogentin) 1 mg PO DAILY KALLI Duloxetine HCl (Cymbalta) 60 mg PO DAILY KALLI Hydrochlorothiazide (Microzide) 12.5 mg PO DAILY [facility] Insulin Human Regular (Humulin R High) 0 units SC ACHS KALLI PRN Reason: Protocol Last Admin: 02/14/17 17:54 Dose: 12 units Levothyroxine Sodium (Synthroid) 50 mcg PO DAILY KALLI Lorazepam (Ativan) 1 mg PO Q6 PRN; Protocol PRN Reason: Anxiety Last Admin: 02/14/17 20:06 Dose: 1 mg Losartan Potassium (Cozaar) 1 mg PO DAILY KALLI Methylprednisolone (Solu-Medrol) 40 mg IVP Q8 KALLI Last Admin: 02/14/17 14:55 Dose: 40 mg Pantoprazole Sodium (Protonix Ec Tab) 40 mg PO DAILY KALLI Tolterodine Tartrate (Detrol La) 1 mg PO DAILY KALLI Zolpidem Tartrate (Ambien) 10 mg PO HS PRN; Protocol PRN Reason: Insomnia - Labs Labs: PT 11.3 SECONDS (9.4-12.5) 02/14/17 08:24 INR 1.03 (0.93-1.08) 02/14/17 08:24 APTT 28.6 Seconds (25.1-36.5) 02/14/17 08:24 Most Recent Lab Values WBC 8.2 10^3/ul (4.5-11.0) D 02/14/17 08:24 RBC 4.59 10^6/uL (3.5-6.1) 02/14/17 08:24 Hgb 14.0 g/dL (12.0-16.0) 02/14/17 08:24 Hct 41.8 % (36.0-48.0) 02/14/17 08:24 MCV 91.1 fl (80.0-105.0) 02/14/17 08:24 MCH 30.5 pg (25.0-35.0) 02/14/17 08: MCHC 33.5 g/dl (31.0-37.0) 02/14/17 08:24 RDW 14.3 % (11.5-14.5) 02/14/17 08:24 Plt Count 242 10^3/uL (120.0-450.0) 02/14/17 08:24 MPV 10.7 fl (7.0-11.0) 02/14/17 08:24 Gran % 70.6 % (50.0-68.0) H 02/14/17 08:24 Lymph % (Auto) 20.6 % (22.0-35.0) L 02/14/17 08:24 [place] % (Auto) 6.8 % (1.0-6.0) H 02/14/17 08:24 Eos % (Auto) 1.8 % (1.5-5.0) 02/14/17 08:24 Baso % (Auto) 0.2 % (0.0-3.0) 02/14/17 08:24 Gran # 5.80 (1.4-6.5) 02/14/17 08:24 Lymph # 1.7 (1.2-3.4) 02/14/17 08:24 [place] # 0.6 (0.1-0.6) 02/14/17 08:24 Eos # 0.2 (0.0-0.7) 02/14/17 08:24 Baso # 0.02 K/mm3 (0.0-2.0) 02/14/17 08:24 PT 11.3 SECONDS (9.4-12.5) 02/14/17 08:24 INR 1.03 (0.93-1.08) 02/14/17 08:24 APTT 28.6 Seconds (25.1-36.5) 02/14/17 08:24 pCO2 43 mm/Hg (35-45) 02/14/17 08:20 pO2 50 mm/Hg (30-55) 02/14/17 08:24 HCO3 29.9 mmol/L (21-28) H 02/14/17 08:20 ABG pH 7.45 (7.35-7.45) 02/14/17 08:20 ABG Total CO2 31.2 mmol.L (22-28) H 02/14/17 08:20 ABG O2 Saturation 88.6 % (95-98) L 02/14/17 08:20 ABG Base Excess 5.2 mmol/L (-2.0-3.0) H 02/14/17 08:20 ABG Potassium 3.2 mmol/L (3.6-5.2) L 02/14/17 08:20 VBG pH 7.39 (7.32-7.43) 02/14/17 08:24 VBG pCO2 54.0 (40-60) 02/14/17 08:24 VBG HCO3 32.7 mmol/l (21-28) H 02/14/17 08:24 VBG Total CO2 34.4 mmol.L (22-28) H 02/14/17 08:24 VBG O2 Sat (Calc) 91.2 % (40-65) H 02/14/17 08:24 VBG Base Excess 6.2 mmol/L (0.0-2.0) H 02/14/17 08:24 VBG Potassium 3.3 mmol/L (3.6-5.2) L 02/14/17 08:24 Sodium 139.0 mmol/L (132-148) 02/14/17 08:24 Chloride 102.0 mmol/L (98-107) 02/14/17 08:24 Glucose 138 mg/dl (65-105) H 02/14/17 08:24 Lactate 1.5 mmol/L (0.7-2.1) 02/14/17 08:24 FiO2 21.0 % 02/14/17 08:24 Sodium 140 mmol/L (132-148) 02/14/17 08:24 Potassium 3.4 mmol/L (3.6-5.0) L 02/14/17 08:24 Chloride 101 mmol/L (98-107) 02/14/17 08:24 Carbon Dioxide 29 mmol/L (21-33) 02/14/17 08:24 Anion Gap 13 (10-20) 02/14/17 08:24 BUN 9 mg/dL (7-21) 02/14/17 08:24 Creatinine 0.6 mg/dL (0.7-1.2) L 02/14/17 08:24 Est GFR ( Amer) > 60 02/14/17 08:24 Est GFR (Non-Af Amer) > 60 02/14/17 08:24 POC Glucose (mg/dL) 321 mg/dL (65-110) H 02/14/17 21:21 Random Glucose 139 mg/dL (70-110) H 02/14/17 08:24 Calcium 9.0 mg/dL (8.4-10.5) 02/14/17 08:24 Magnesium 1.9 mg/dL (1.7-2.2) 02/14/17 08:24 Total Bilirubin 0.5 mg/dL (0.2-1.3) 02/14/17 08:24 AST 30 U/L (14-36) 02/14/17 08:24 ALT 39 U/L (7-56) 02/14/17 08:24 Alkaline Phosphatase 112 U/L (38-126) 02/14/17 08:24 Lactate Dehydrogenase 488 U/L (333-699) 02/14/17 08:24 Total Creatine Kinase 132 U/L (35-230) 02/14/17 08:24 Troponin I 0.03 ng/mL D 02/14/17 08:24 NT-Pro-B Natriuret Pep 816 pg/mL (0-450) H 02/14/17 08:24 Total Protein 6.8 g/dL (5.8-8.3) 02/14/17 08:24 Albumin 4.0 g/dL (3.0-4.8) 02/14/17 08:24 Globulin 2.7 gm/dL 02/14/17 08:24 Albumin/Globulin Ratio 1.5 (1.1-1.8) 02/14/17 08:24 Arterial Blood Potassium 3.2 mmol/L (3.6-5.2) L 02/14/17 08:20 Venous Blood Potassium 3.3 mmol/L (3.6-5.2) L 02/14/17 08:24 - Constitutional Appears: Well, No Acute Distress - Head Exam Head Exam: ATRAUMATIC, NORMAL INSPECTION, NORMOCEPHALIC - Eye Exam Eye Exam: Normal appearance - ENT Exam ENT Exam: Normal External Ear Exam - Neck Exam Neck Exam: Normal Inspection - Respiratory Exam Respiratory Exam: NORMAL BREATHING PATTERN - Cardiovascular Exam Cardiovascular Exam: REGULAR RHYTHM. absent: JVD - GI/Abdominal Exam GI & Abdominal Exam: absent: Distended - Rectal Exam Rectal Exam: Deferred - Exam Additional comments: Deferred. - Extremities Exam Extremities Exam: Normal Inspection - Back Exam Back Exam: NORMAL INSPECTION - Neurological Exam Neurological Exam: Alert, Oriented x3 - Psychiatric Exam Psychiatric exam: Normal Affect, Normal Mood - Skin Skin Exam: Normal Color Assessment and Plan - Assessment and Plan (Free Text) Assessment: Cough. Bronchitis. Exacerbation of ashtma. COPD. CHF. HTN. Obesity. DM II. Hx cardiac cathterization. Plan: Robitussion 200 mg PO Q4H prn cough. Continue management as outlined by PMD.
--- NOTE | 2017-02-14 20:56 | CARD ---
APPROVED REPORT EKG Measurement Heart [id number] <Conclusion> Sinus tachycardia Possible Left atrial enlargement Left ventricular hypertrophy Nonspecific T wave abnormality Abnormal ECG
[2017-02-14] MEDS: guaiFENesin 200 mg/10 ml Syrup UD PO PRN (21:48)
[2017-02-14 23:33] LABS: URINE BILIRUBIN NEGATIVE (NEGATIVE); URINE BLOOD SMALL (NEGATIVE); URINE GLUCOSE (UA) >=1000 mg/dL (NEGATIVE); URINE KETONE NEGATIVE (NEGATIVE); URINE LEUKOCYTE ESTERASE NEGATIVE Leu/uL (NEGATIVE); URINE PROTEIN NEGATIVE mg/dL (<30 mg/dL); URINE UROBILINOGEN 0.2 E.U./dL (<1 E.U./dL)
[2017-02-14 23:43] LABS: URINE APPEARANCE CLEAR (CLEAR); URINE COLOR YELLOW (YELLOW)
[2017-02-14 23:53] LABS: URINE EPITHELIAL CELLS 0 - 2 /hpf (0-5); URINE RBC 0 - 2 /hpf (0-2); URINE WBC 0 - 2 /hpf (0-6)
[2017-02-15] MEDS: Albuterol-Ipratrop 3 mg / 0.5 (3 ml) UD IH SCH ×4 (01:27→19:28)
[2017-02-15] MEDS: MethylPREDNISolone 40 mg Vial IVP SCH (05:01)
[2017-02-15 06:31] LABS: HEMATOCRIT 42.6 % (36.0-48.0); MEAN CELL VOLUME 91.4 fl (80.0-105.0); MEAN CORPUSCULAR HEMOGLOBIN 29.6 pg (25.0-35.0); MEAN CORPUSCULAR HGB CONC 32.4 g/dl (31.0-37.0); MEAN PLATELET VOLUME 10.8 fl (7.0-11.0); RED CELL DISTRIBUTION WIDTH 14.4 % (11.5-14.5)
[2017-02-15 06:57] LABS: ALB/GLOB RATIO 1.4 (1.1-1.8); ALKALINE PHOSPHATASE 109 U/L (38-126); ALT/SGPT 31 U/L (7-56); AST/SGOT 27 U/L (14-36); BILIRUBIN,TOTAL 0.6 mg/dL (0.2-1.3); BLOOD UREA NITROGEN 20 mg/dL (7-21); CALCIUM 9.7 mg/dL (8.4-10.5); CARBON DIOXIDE 27 mmol/L (21-33); CHLORIDE 105 mmol/L (98-107); GFR AFRICAN-AMERICAN > 60; GLUCOSE,RANDOM 281 mg/dL (70-110); SODIUM 142 mmol/L (132-148); TOTAL PROTEIN 7.2 g/dL (5.8-8.3)
[2017-02-15] MEDS: Budesonide 0.5 mg/2 ml Inhal Susp UD IH SCH ×2 (07:35→19:28)
[2017-02-15] MEDS: Insulin Reg-HIGH-Coverage SC SCH ×4 (08:27→21:21)
[2017-02-15] MEDS: guaiFENesin 200 mg/10 ml Syrup UD PO PRN ×3 (08:28→16:41)
--- NOTE | 2017-02-15 08:31 | CON ---
PULMONARY CONSULTATION DATE: 02/15/2017 REASON FOR CONSULTATION: Asthma. REFERRING PHYSICIAN: Avelino Antoine DO HISTORY OF PRESENT ILLNESS: The patient is a 61-year-old female, with past medical history significant for asthma, chronic obstructive pulmonary disease, positive extensive smoking history - still smokes, recurrent bronchitis, diabetes mellitus, hypertension, anxiety, who presents with a 3-day history of worsening shortness of breath at rest, dyspnea on exertion, cough, and sputum production. There is no history of chest pain, coughing up of blood, or chest pain - made worse with deep respirations. There is no history of temperatures, chills, or infectious exposure. There is no history of night sweats, weight loss or appetite change prior to the above events. No history of leg or calf pains. No history of syncope or diaphoresis. No history of recent travel or trauma. REVIEW OF SYSTEMS: No history of nausea, vomiting, or diarrhea. No acute urinary symptoms. No new neurologic or musculoskeletal complaints. Rest of the review of systems is negative. ALLERGIES: NO KNOWN ALLERGIES. SOCIAL HISTORY: Positive for extensive tobacco usage - still smokes. No alcohol. FAMILY HISTORY: No inheritable diseases. HOME MEDICATIONS: Include Ativan, Cymbalta, Ambien, Protonix, Synthroid, Cogentin, valsartan, hydrochlorothiazide. PHYSICAL EXAMINATION: GENERAL: The patient appears comfortable this morning. She is not short of breath at rest. She is not using accessory muscles for breathing. VITAL SIGNS: Temperature is 98.8, pulse on the monitor is 92, respiratory rate 18/20, blood pressure 138/70. Oxygen saturation on nasal cannula is 94%. HEENT: Normocephalic, atraumatic. No JVD. CARDIOVASCULAR: Positive S1 and S2. No S3 gallop. LUNGS: Decreased breath sounds at the bases. Minimal rhonchi and minimal wheezing bilaterally. EXTREMITIES: Mild edema. No cyanosis. No clubbing. Calves are nontender to palpation. GI: Abdomen is soft, nontender, and nondistended. Bowel sounds are positive. SKIN: No acute rash. NEUROLOGIC EXAM: Limited at the present time. PERTINENT LABORATORY DATA: Chest x-ray was done yesterday and reviewed. There is no active disease present. CBC: White count 11.0, hemoglobin 13.8, hematocrit 42.6, platelets of 289,000. Complete metabolic profile: Creatinine 0.6, glucose 281. Rest of the metabolic profiles within normal limits. IMPRESSION: 1. Acute bronchitis. 2. Asthma. 3. Chronic obstructive pulmonary disease. 4. Diabetes mellitus. PLAN: The patient presents to [facility] with a 3-day history of worsening pulmonary symptoms. I did review the chest x-ray as above. It shows no acute disease. On physical exam, mild-moderate bronchospasm is noted this morning. I will continue with the current nebulizer treatments and add inhaled steroids. I will also decrease the intravenous steroids this morning. There is no history of temperatures. There is no leukocytosis. The patient does state to feeling much better this morning, and is clinically improved. Additional pulmonary intervention will be based on the clinical status of the patient. I will discuss the above with Dr. Antoine this morning. The patient is advised strongly to stop smoking. Thank you very much for this pulmonary consultation. Raciel Guevara MD EL
--- NOTE | 2017-02-15 08:40 | HP ---
HISTORY OF PRESENT ILLNESS: I saw her in the emergency room at [facility]. I was called down to see her. She was with shortness of breath and wheezing in the emergency room. She came in with three days' of acute exacerbation of COPD with wheezing and shortness of breath. She was placed on Augmentin on the outpatient. It did not help. PAST MEDICAL HISTORY: She has a past medical history that includes asthma exacerbation, asthma CHF, hypertension, abdominal hematoma, hydronephrosis, COPD, hypoxia, low potassium and actually in the ER with another acute asthma exacerbation. She has diabetes, depression, bipolar, and anxiety. She has had cardiac catheterizations. She has bilateral ankle reconstruction and back surgery and . SOCIAL HISTORY: Former smoker, no alcohol, no drugs. Last time she used cocaine was 7 years ago. ALLERGIES: NO KNOWN DRUG ALLERGIES. MEDICATIONS: She takes Cogentin, Cymbalta, Synthroid for hypothyroidism, Ativan for the anxiety, Protonix for the GERD, Ambien for insomnia, aspirin, losartan, hydrochlorothiazide for the blood pressure, Invega and tolterodine. REVIEW OF SYSTEMS: No acute visual or hearing changes. No sore throat. There is rhinitis, sinus congestion, shortness of breath, coughing, sputum, wheezing, dyspnea on exertion. No chest pain. No abdominal pain. No nausea or vomiting. No constipation or diarrhea. No problems urinating. No back pain. No skin issues that she knows of. No increase in urination. PHYSICAL EXAMINATION: VITAL SIGNS: She has a 98.4 temperature, 95 pulse, 18 respiratory rate, 168/97 blood pressure, 89% O2 saturation on room air. HEENT: Head is atraumatic, normocephalic. Extraocular muscles are intact. Pupils are equal reactive to light and accommodation. Throat is moist. NECK: Supple. HEART: Regular rate. LUNGS: Decreased breath sounds bilaterally with some wheezes, changes with cough, poor inspiration. ABDOMEN: Soft and nontender. Positive bowel sounds. No guarding, no rebound or CVA tenderness. EXTREMITIES: With no edema. SKIN: Warm and dry. NEUROLOGIC: She is alert and oriented x3, very concerned about her medications. NECK: Thyroid is midline. No palpable or appreciable lymphadenopathy. LABORATORY DATA: She had multiple tests. The chest x-ray showed no acute disease. She has 8.2 white count, 14 hemoglobin, 41.8 hematocrit with a 242 platelets. INR is 1.03. She had a pCO2 of 43 and pO2 of 44. She has 140 sodium and potassium 3.4 that was replaced. BUN 9, creatinine 0.6. GFR is greater than 60. Sugar is 139. AST is 30, ALT is 29, and alkaline phosphatase 112, lactate dehydrogenase is 48 . Total creatine kinase is 132. Troponin 1 is 0.03. BNP was 816, total protein 6.8 and albumin is 4. PLAN: She will have a consult with Pulmonary and Cardiology. She will be put back on her medications. She will be on Solu-Medrol 40 q. 8 hours, DuoNeb, oxygen. Hopefully, she will improve. Replace potassium. Check her labs. Avelino Antoine DO
[2017-02-15] MEDS ORDERED: Tolterodine 4 mg ER Cap PO SCH ×2 (10:00)
[2017-02-15] MEDS ORDERED: Levothyroxine 50 MCG TAB PO SCH (10:00)
[2017-02-15] MEDS ORDERED: MethylPREDNISolone 40 mg Vial IVP SCH ×2 (10:00→17:00)
[2017-02-15] MEDS ORDERED: Pantoprazole 40 mg EC Tab PO SCH (10:00)
--- NOTE | 2017-02-15 12:48 | PN ---
DATE: 02/15/2017 SUBJECTIVE: She is doing better this morning than yesterday. There is no wheezes. She was up whole night coughing, uncomfortable. PHYSICAL EXAMINATION VITAL SIGNS: She has 98.8 temperature, 110 pulse, 138/70 blood pressure, 20 respiratory rate, and 94% O2 saturation on 2 L nasal cannula. HEENT: Head is atraumatic and normocephalic. Throat is moist. NECK: Supple. HEART: Regular rate. LUNGS: Decreased breath sounds. No wheezes today. There were wheezes yesterday. Breathing little bit better. ABDOMEN: Soft and obese. EXTREMITIES: No edema. MEDICATIONS: She is currently on Ambien, Ativan, Cogentin, Cozaar, Cymbalta, Detrol, DuoNeb, Ecotrin, insulin, Microzide, Protonix, Pulmicort, Robitussin, Solu-Medrol down to 40 b.i.d. and Synthroid. LABORATORY DATA: She has a 11 white count, 13.8 hemoglobin and 42.6 hematocrit, with 289 platelets. Sodium is 142, potassium is 4, BUN is 20, creatinine is 0.6, GFR is greater than 60, sugars are 281 and 277, and calcium is 9.7. Total bilirubin is 0.6, AST is 27, ALT is 31, alkaline phosphatase is 109, and total protein is 7.2. ASSESSMENT AND PLAN: She is being seen by Pulmonary. We will decrease her steroids, if she does well hopefully to discharge her tomorrow. She needs aggressive treatment and care on Renée Toribio who had acute asthma, hypertension, and diabetes. Avelino Antoine DO MTDD
[2017-02-15 16:42] VITALS: BP 187/115
[2017-02-15 17:20] VITALS: PULSE 109; RESP 24; TEMP 98.3; O2SAT 93
[2017-02-16] MEDS: Albuterol-Ipratrop 3 mg / 0.5 (3 ml) UD IH SCH (01:29)
--- NOTE | 2017-02-16 08:13 | CON ---
CARDIOLOGY CONSULTATION NOTE DATE: 02/15/2017 HISTORY OF PRESENT ILLNESS: The patient is a 61-year-old woman, who presents with shortness of breath. The patient's past medical history is notable for history of severe COPD with repeated bronchospasm and bronchitis in the past and this is all due to smoking. The patient underwent cardiac catheterization in the past and showed nonobstructive CAD and MUGA scan reveals an ejection fraction of 61%. The patient denies chest pain. Cardiac risk factors includes hypertension. SOCIAL HISTORY: The patient continues to be an active smoker despite extensive counseling about the need to stop smoking. REVIEW OF SYSTEM: A 14-point review of systems was reviewed in detail. No additional symptoms are noted. PHYSICAL EXAMINATION: VITAL SIGNS: Blood pressure is 169/96, heart rate is 100. NECK: Negative JVD. LUNGS: Bilateral rhonchi. HEART: Reveal S1, S2. EXTREMITIES: Without edema. LABORATORY: Hemoglobin is 13.8. BUN and creatinine unremarkable. Troponins negative x1. ProBNP was 800. IMPRESSION: 1. Bronchitis. 2. Chronic obstructive pulmonary disease. 3. Diabetes mellitus. 4. Hypertension. 5. No evidence for acute coronary syndrome. Given these findings, the patient is currently been placed on bronchodilators. In addition, I have discussed with the patient about her need to stop smoking. The patient is not interested in hearing this advice. Jai Michaels MD
== END 2017-02-16 06:26 | disposition left against medical advice (07) | DRG 192 ==
LOC: ED 07:01 → ERH 09:36 → 2RSO 11:23 → 5RNO 02-15 11:30
PROVIDERS: ADMIT Family Medicine; ATTEND Family Medicine
PROC: 3E0F7GC Introduction of Other Therapeutic Substance into Respiratory Tract, Via Natural or Artificial Opening (ICD-10-PCS; principal; 2017-02-14)
DX: J44.1 Chronic obstructive pulmonary disease with (acute) exacerbation (principal); I11.0 Hypertensive heart disease with heart failure; I50.9 Heart failure, unspecified; J20.9 Acute bronchitis, unspecified; J44.0 Chronic obstructive pulmonary disease with (acute) lower respiratory infection; E03.9 Hypothyroidism, unspecified; E11.9 Type 2 diabetes mellitus without complications; R09.02 Hypoxemia; I25.10 Atherosclerotic heart disease of native coronary artery without angina pectoris; F41.9 Anxiety disorder, unspecified; E87.6 Hypokalemia; F17.210 Nicotine dependence, cigarettes, uncomplicated; E66.9 Obesity, unspecified; Z68.38 Body mass index [BMI] 38.0-38.9, adult; Z79.82 Long term (current) use of aspirin

== ENCOUNTER 2017-03-15 18:03 | Inpatient (IN) | payer MEDICARE, BC ==
[2017-03-15 18:03] VITALS: PULSE 89; BMI 38.7
--- NOTE | 2017-03-15 18:06 | ED PDOC ---
Arrival/HPI - General Historian: Patient <Rickey Kelly - Last Filed: 03/16/17 01:10> <Terrence Sheppard - Last Filed: 03/16/17 05:58> - General Time Seen by Provider: 03/15/17 18:05 - History of Present Illness Narrative History of Present Illness (Text): 03/15/17 18:06 61 year old female, pmh including htn/copd/chf/hypothyroidism, psychiatric history including insomnia/bipolar, post menopausal, total hysterectomy, nkda, AOX3, biba with [facility] team due to he patient has visual hallucinations at home for the past 1 week. As per EMS team, they were call to the patient's resident because the patient has been having visual hallucination and she has been constantly accusing of the cheating and she's living in a "maternal department". Pt. stated that she has no homicidal or suicidal ideation, no auditory hallucination, no palpitation, no chest pain, no night sweat, no other medical or psychological complaints. (Rickey Kelly) Past Medical History - Provider Review Nursing Documentation Reviewed: Yes - Cardiac Hx Cardiac Disorders: Yes Hx Congestive Heart Failure: Yes Hx Hypertension: Yes - Pulmonary Hx Respiratory Disorders: Yes Hx Asthma: Yes - Neurological Hx Neurological Disorder: No - HEENT Hx HEENT Disorder: No - Renal Hx Renal Disorder: No - Endocrine/Metabolic Hx Endocrine Disorders: Yes Hx Diabetes Mellitus Type 2: Yes Hx Hypothyroidism: Yes - Hematological/Oncological Hx Blood Disorders: No - Integumentary Hx Dermatological Disorder: No - Musculoskeletal/Rheumatological Hx Falls: No - Gastrointestinal Hx Gastrointestinal Disorders: No - Genitourinary/Gynecological Hx Genitourinary Disorders: No - Psychiatric Hx Psychophysiologic Disorder: Yes Hx Anxiety: Yes Hx Bipolar Disorder: Yes Hx Depression: Yes Hx Substance Use: No - Surgical History Hx Cardiac Catheterization: Yes Hx Orthopedic Surgery: Yes (Bilateral ankle reconstruction, back surgery) - Anesthesia Hx Anesthesia: No <Rickey Kelly - Last Filed: 03/16/17 01:10> Family/Social History - Physician Review Nursing Documentation Reviewed: Yes Family/Social History: Unknown Family HX Smoking Status: Never Smoked Hx Alcohol Use: No Hx Substance Use: No 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 <Rickey Kelly - Last Filed: 03/16/17 01:10> Allergies/Home Meds <Rickey Kelly - Last Filed: 03/16/17 01:10> <Terrence Sheppard - Last Filed: 03/16/17 05:58> Allergies/Adverse Reactions: Allergies No Known Allergies Allergy (Verified 03/15/17 18:10) Home Medications: Home Meds Medication Instructions Recorded Confirmed Benztropine [Cogentin] 1 tab PO DAILY 01/29/15 02/14/17 DULoxetine [Cymbalta] 60 mg PO DAILY 01/29/15 02/14/17 Levothyroxine [Synthroid] 0.05 mg PO DAILY 01/29/15 02/14/17 LORazepam [Ativan] 1 mg PO Q6 PRN 07/26/16 02/14/17 Pantoprazole Sodium [Protonix] 40 mg PO DAILY 07/26/16 02/14/17 Zolpidem [Ambien] 10 mg PO HS PRN 07/26/16 02/14/17 Aspirin [Lo-Dose Aspirin EC] 81 mg PO DAILY 09/15/16 02/14/17 Valsartan/Hydrochlorothiazide 1 tab PO DAILY 09/15/16 02/14/17 [Valsartan and Hydrochlorothiazide 12.5 mg-160] Paliperidone Palmitate [Invega 156 mg IM .MONTHLY 02/14/17 02/14/17 Sustenna] Tolterodine Tartrate [Tolterodine 1 tab PO DAILY 02/14/17 02/14/17 Tartrate ER] Review of Systems - Review of Systems Constitutional: absent: Fatigue, Fevers Eyes: absent: Vision Changes ENT: absent: Hearing Changes Respiratory: absent: SOB, Cough Cardiovascular: absent: Chest Pain Gastrointestinal: absent: Abdominal Pain, Nausea, Vomiting Genitourinary Female: absent: Dysuria Musculoskeletal: absent: Arthralgias, Back Pain Skin: absent: Rash, Pruritis Neurological: absent: Headache, Dizziness Psychiatric: absent: Anxiety, Depression, Suicidal Ideation <Rickey Kelly - Last Filed: 03/16/17 01:10> Physical Exam Appearance: Positive for: Well-Appearing, Non-Toxic, Comfortable Mental Status: Positive for: Alert and Oriented X 3 - Systems Exam Head: Present: Atraumatic, Normocephalic Pupils: Present: PERRL. No: Pinpoint Extroacular Muscles: Present: EOMI Conjunctiva: Present: Normal Mouth: Present: Moist Mucous Membranes Neck: Present: Normal Range of Motion. No: MIDLINE TENDERNESS, Paraspinal Tenderness Respiratory/Chest: Present: Clear to Auscultation, Good Air Exchange. No: Respiratory Distress, Accessory Muscle Use Cardiovascular: Present: Regular Rate and Rhythm, Normal S1, S2. No: Murmurs Abdomen: Present: Normal Bowel Sounds. No: Tenderness, Distention, Peritoneal Signs Back: Present: Normal Inspection. No: CVA Tenderness, Midline Tenderness Upper Extremity: Present: Normal Inspection. No: Cyanosis, Edema Lower Extremity: Present: Normal Inspection. No: Edema Neurological: Present: GCS=15, CN II-XII Intact, Speech Normal, Motor Func Grossly Intact, Gait Normal, Memory Normal Skin: Present: Warm, Dry, Normal Color. No: Rashes Psychiatric: Present: Alert, Oriented x 3, Normal Insight <Rickey Kelly - Last Filed: 03/16/17 01:10> Vital Signs Temp Pulse Resp BP Pulse Ox 03/16/17 03:03 98 H 17 139/98 H 95 03/15/17 23:49 86 158/86 H 03/15/17 21:00 88 18 162/8 H 99 03/15/17 19:18 98.2 F 115 H 18 185/119 H 98 Medical Decision Making - Lab Interpretations Interpretation: Abnormal lab values (K+3.3) - EKG Interpretation Interpreted by ED Physician: Yes Type: 12 lead EKG <Rickey Kelly - Last Filed: 03/16/17 01:10> <Terrence Sheppard - Last Filed: 03/16/17 05:58> ED Course and Treatment: 03/15/17 18:12 -labs/ua/uds -ekg -cxr -PES notified -Observe and reassess 03/15/17 19:35 -Pt. is agitated, threatened to leave, possessing threat to herself and causing harm, will give ativan 2mg IM. 03/15/17 22:34 -EKG: Sinus Tachycardia @ 109 BPM, LVH, no ST elevation or depression, no T wave inversion. -Chest xray: chronic cardiomegally, asymptomatic -Labs are non-significant except potassium 3.3, potassium chloride 20meq po ordered. -Pt. is medically clear and stable for the psychiatric evaluation, discussed with Dr. robert and agreed on the clearance. -Pt. Screen by the DAMION [place], agreed this patient is delutional and not safe to be discharged, discussed with the psychiatrist animation producer Dr. Fernandez, suggest to have face to face evaluation with the psychiatrist. -Pending for the Psychiatrist face to face evaluation. 03/15/17 23:11 -Pt. is agitated, pushing the database security administrator, will give haldol 5mg IM. 03/15/17 23:22 -Pt. is agitated, still pushing the staffs and database security administrator, 4 points restrains ordered for the protection for the patient and the ER staff. 03/16/17 00:20 -Pt. is still agitated, as per carola Nation 10mg IM ordered. 03/16/17 01:00 -Pt. is asleep, no distress, understand that she has to stay for psychiatrist to evaluate her. 03/16/17 02:00 -Pt. is sleeping comfortably, case discussed and sign off to DR. Sheppard and he will continue the care for the patient. (Rickey Kelly) 03/16/17 06:55 Pt. rersting comfortably.To be evaluated later this AM by psychiatrist.Endorsed to ER attending /final disposition to follow. (Terrence Sheppard) - Lab Interpretations Lab Results: 03/15/17 18:37 03/15/17 18:37 Lab Results 03/15/17 18:37: WBC 6.6 D, RBC 4.82, Hgb 15.0, Hct 44.0, MCV 91.3, MCH 31.1, MCHC 34.1, RDW 13.8, Plt Count 210, MPV 11.9 H, Gran % 55.6, Lymph % (Auto) 34.2 , [place] % (Auto) 7.4 H, Eos % (Auto) 2.6, Baso % (Auto) 0.2, Gran # 3.66, Lymph # 2.3, [place] # 0.5, Eos # 0.2, Baso # 0.01 03/15/17 18:37: Alcohol, Quantitative < 10 03/15/17 18:37: Salicylates < 1 L, Acetaminophen < 10.0 L 03/15/17 18:37: Sodium 141, Potassium 3.3 L, Chloride 104, Carbon Dioxide 29, Anion Gap 11, BUN 11, Creatinine 0.7, Est GFR ( Amer) > 60, Est GFR (Non- Af Amer) > 60, Random Glucose 224 H, Calcium 9.4, Magnesium 1.8, Total Bilirubin 0.6, AST 33, ALT 52, Alkaline Phosphatase 97, Total Protein 7.4, Albumin 4.1, Globulin 3.3, Albumin/Globulin Ratio 1.3 - RAD Interpretation Radiology Orders: 03/15/17 18:11 CHEST PORTABLE [RAD] Stat - EKG Interpretation EKG Interpretation (Text): 03/15/17 18:50 -EKG: Sinus Tachycardia @ 109 BPM, LVH, no ST elevation or depression, no T wave inversion. (Rickey Kelly) - Medication Orders Current Medication Orders: Discontinued Medications Haloperidol Lactate (Haldol) 5 mg IM STAT STA PRN Reason: Protocol Stop: 03/15/17 23:12 Last Admin: 03/15/17 23:31 Dose: Lorazepam (Ativan) 2 mg IM ONCE ONE PRN Reason: Protocol Stop: 03/15/17 19:35 Last Admin: 03/15/17 19:41 Dose: 2 mg IM Administration Charges Document 03/15/17 19:41 AUGUSTA (Rec: 03/15/17 19:41 AUGUSTA [id number]) Injection Site MAR Injection Site Left Deltoid Charges for Administration # of IM Administrations 1 Potassium Chloride (K-Dur 20 Meq Er Tab) 20 meq PO STAT STA Stop: 03/15/17 19:01 Last Admin: 03/16/17 03:22 Dose: 20 meq Comments: Pt awake now and cooperative Ziprasidone (Geodon Inj) 10 mg IM STAT STA PRN Reason: Protocol Stop: 03/16/17 00:21 Last Admin: 03/16/17 00:34 Dose: 10 mg IM Administration Charges Document 03/16/17 00:34 IT (Rec: 03/16/17 00:34 IT [id number]) Injection Site MAR Injection Site Right Deltoid Charges for Administration # of IM Administrations 1 - PA / HSE ADVISOR / Resident Statement MD/DO has reviewed & agrees with the documentation as recorded. <Rickey Kelly - Last Filed: 03/16/17 01:10> - PA / HSE ADVISOR / Resident Statement / has reviewed & agrees with the documentation as recorded. / has examined the patient and agrees with the treatment plan. <Terrence Sheppard - Last Filed: 03/16/17 05:58> Disposition/Present on Arrival - Present on Arrival Any Indicators Present on Arrival: No History of DVT/PE: No History of Uncontrolled Diabetes: Yes Urinary Catheter: No History Surgical Site Infection Following: None - Disposition Have Diagnosis and Disposition been Completed?: Yes Disposition Time: 02:02 <Rickey Kelly - Last Filed: 03/16/17 01:10> - Present on Arrival Any Indicators Present on Arrival: No - Disposition Have Diagnosis and Disposition been Completed?: No Disposition Time: 07:00 <Terrence Sheppard - Last Filed: 03/16/17 05:58> - Disposition Diagnosis: Hypokalemia, Hallucination Patient Problems: Current Active Problems Problem Status Onset Hallucination Acute Hypokalemia Acute Condition: STABLE Referrals: [facility] Cely Req, [Primary Care Provider] - Follow up with primary
[2017-03-15 18:50] LABS: BASO # 0.01 K/mm3 (0.0-2.0); BASO % 0.2 % (0.0-3.0); EOS # 0.2 (0.0-0.7); EOS % 2.6 % (1.5-5.0); GRAN # 3.66 (1.4-6.5); GRAN % 55.6 % (50.0-68.0); LYMPH # 2.3 (1.2-3.4); LYMPH % 34.2 % (22.0-35.0); MEAN CELL VOLUME 91.3 fl (80.0-105.0); MEAN CORPUSCULAR HEMOGLOBIN 31.1 pg (25.0-35.0); MEAN CORPUSCULAR HGB CONC 34.1 g/dl (31.0-37.0); MEAN PLATELET VOLUME 11.9 fl (7.0-11.0); MONO # 0.5 (0.1-0.6); MONO % 7.4 % (1.0-6.0); RED CELL DISTRIBUTION WIDTH 13.8 % (11.5-14.5); WHITE BLOOD COUNT 6.6 10^3/ul (4.5-11.0)
[2017-03-15 18:57] LABS: ALB/GLOB RATIO 1.3 (1.1-1.8); ALKALINE PHOSPHATASE 97 U/L (38-126); ALT/SGPT 52 U/L (7-56); AST/SGOT 33 U/L (14-36); BILIRUBIN,TOTAL 0.6 mg/dL (0.2-1.3); BLOOD UREA NITROGEN 11 mg/dL (7-21); CALCIUM 9.4 mg/dL (8.4-10.5); CARBON DIOXIDE 29 mmol/L (21-33); CHLORIDE 104 mmol/L (98-107); GFR AFRICAN-AMERICAN > 60; GLUCOSE,RANDOM 224 mg/dL (70-110); MAGNESIUM 1.8 mg/dL (1.7-2.2); POTASSIUM 3.3 mmol/L (3.6-5.0); SODIUM 141 mmol/L (132-148); TOTAL PROTEIN 7.4 g/dL (5.8-8.3)
[2017-03-15] MEDS ORDERED: Potassium Chloride 20 mEq ER Tab PO STA (19:00)
--- NOTE | 2017-03-16 07:12 | ED PDOC ---
Physical Exam Vital Signs Reviewed: Yes Vital Signs Temp Pulse Resp BP Pulse Ox 03/16/17 18:04 100 H 20 158/104 H 95 03/16/17 12:20 91 H 19 117/69 95 03/16/17 11:10 101 H 174/104 H 03/16/17 09:51 187/101 H 03/16/17 09:41 80 19 97 03/16/17 06:34 92 H 18 142/94 H 96 03/16/17 03:03 98 H 17 139/98 H 95 03/15/17 23:49 86 158/86 H 03/15/17 21:00 88 18 162/8 H 99 03/15/17 19:18 98.2 F 115 H 18 185/119 H 98 Temperature: Afebrile Blood Pressure: Hypertensive Pulse: Tachycardic Respiratory Rate: Normal Medical Decision Making ED Course and Treatment: 03/16/17 07:12 Patient endorsed to me by Dr. Sheppard at 07:00, pending PES evaluation and disposition. 03/16/17 18:21 Patient was attempted to be evaluated by PES at least 4 times today, but patient would not wake up. At this time, patient awake. PES called. 03/16/17 19:04 Signed out to ED night team pending PES. - Lab Interpretations Lab Results: 03/15/17 18:37 03/15/17 18:37 Lab Results 03/15/17 18:37: WBC 6.6 D, RBC 4.82, Hgb 15.0, Hct 44.0, MCV 91.3, MCH 31.1, MCHC 34.1, RDW 13.8, Plt Count 210, MPV 11.9 H, Gran % 55.6, Lymph % (Auto) 34.2 , [place] % (Auto) 7.4 H, Eos % (Auto) 2.6, Baso % (Auto) 0.2, Gran # 3.66, Lymph # 2.3, [place] # 0.5, Eos # 0.2, Baso # 0.01 03/15/17 18:37: Alcohol, Quantitative < 10 03/15/17 18:37: Salicylates < 1 L, Acetaminophen < 10.0 L 03/15/17 18:37: Sodium 141, Potassium 3.3 L, Chloride 104, Carbon Dioxide 29, Anion Gap 11, BUN 11, Creatinine 0.7, Est GFR ( Amer) > 60, Est GFR (Non- Af Amer) > 60, Random Glucose 224 H, Calcium 9.4, Magnesium 1.8, Total Bilirubin 0.6, AST 33, ALT 52, Alkaline Phosphatase 97, Total Protein 7.4, Albumin 4.1, Globulin 3.3, Albumin/Globulin Ratio 1.3 - RAD Interpretation Radiology Orders: 03/15/17 18:11 CHEST PORTABLE [RAD] Stat - Medication Orders Current Medication Orders: Discontinued Medications Haloperidol Lactate (Haldol) 5 mg IM STAT STA PRN Reason: Protocol Stop: 03/15/17 23:12 Last Admin: 03/15/17 23:31 Dose: Lorazepam (Ativan) 2 mg IM ONCE ONE PRN Reason: Protocol Stop: 03/15/17 19:35 Last Admin: 03/15/17 19:41 Dose: 2 mg IM Administration Charges Document 03/15/17 19:41 AUGUSTA (Rec: 03/15/17 19:41 AUGUSTA [id number]) Injection Site MAR Injection Site Left Deltoid Charges for Administration # of IM Administrations 1 Losartan Potassium (Cozaar) 50 mg PO STAT STA Stop: 03/16/17 10:19 Last Admin: 03/16/17 11:10 Dose: 50 mg MAR Pulse and Blood Pressure Document 03/16/17 11:10 MR (Rec: 03/16/17 11:10 MR [id number]) Pulse Pulse Rate (60-90) 101 Blood Pressure Blood Pressure (100/60-150/90) 174/104 Potassium Chloride (K-Dur 20 Meq Er Tab) 20 meq PO STAT STA Stop: 03/15/17 19:01 Last Admin: 03/16/17 03:22 Dose: 20 meq Comments: Pt awake now and cooperative Ziprasidone (Geodon Inj) 10 mg IM STAT STA PRN Reason: Protocol Stop: 03/16/17 00:21 Last Admin: 03/16/17 00:34 Dose: 10 mg IM Administration Charges Document 03/16/17 00:34 IT (Rec: 03/16/17 00:34 IT [id number]) Injection Site MAR Injection Site Right Deltoid Charges for Administration # of IM Administrations 1 - Scribe Statement The provider has reviewed the documentation as recorded by the Sethoanh Sweet Provider Scribe Attestation: All medical record entries made by the Scribe were at my direction and personally dictated by me. I have reviewed the chart and agree that the record accurately reflects my personal performance of the history, physical exam, medical decision making, and the department course for this patient. I have also personally directed, reviewed, and agree with the discharge instructions and disposition. Disposition/Present on Arrival - Present on Arrival Any Indicators Present on Arrival: No History of DVT/PE: No History of Uncontrolled Diabetes: No Urinary Catheter: No History of Decub. Ulcer: No History Surgical Site Infection Following: None - Disposition Have Diagnosis and Disposition been Completed?: No Diagnosis: Hallucination Disposition Time: 19:00 Patient Problems: Current Active Problems Problem Status Onset Hallucination Acute Hypokalemia Acute Condition: STABLE [facility] - Follow up with primary
--- NOTE | 2017-03-16 09:01 | RAD ---
HISTORY: medical clearance COMPARISON: Portable chest 02/14/2017. FINDINGS: LUNGS: Diminished inspiratory effort. No acute infiltrate bilaterally. PLEURA: No significant pleural effusion identified, no pneumothorax apparent. CARDIOVASCULAR: Mild cardiomegaly appears stable. OSSEOUS STRUCTURES: No significant abnormalities. VISUALIZED UPPER ABDOMEN: Normal. OTHER FINDINGS: None. IMPRESSION: No acute cardiopulmonary disease is appreciated in the interval. Diminished inspiratory effort identified at this time.
--- NOTE | 2017-03-16 10:22 | CARD ---
APPROVED REPORT EKG Measurement Heart [id number] <Conclusion> Sinus tachycardia Left ventricular hypertrophy with repolarization abnormality Prolonged QTc No change
--- NOTE | 2017-03-16 13:06 | CON ---
HISTORY OF PRESENT ILLNESS: Patient is 61-year-old female with a reported history of bipolar disorder. Patient was brought in by ambulance for evaluation of visual hallucinations for the past week. In the emergency room, patient needed to be medicated with Haldol 5 mg IM, last dose was yesterday at 11:12 and Ativan 2 mg IM at 7:40. Also, patient was medicated with Geodon 10 mg IM, last dose was at 1:[address] Fernandez who was solution director overnight recommended to discharge patient against medical advice because patient refused to stay into the psychiatric, and patient during this on presentation, Dr. Fernandez did not feel like patient meets the criteria for involuntary commitment and screening process, but emergency room physician decided to keep patient overnight in order for this procedure writer to have [id number] evaluation at the morning time in the emergency room. This procedure writer attempted to speak to the patient multiple times, but patient is opening her eyes and falling back asleep. Patient is giving only yes or no answers, but no meaningful conversation is possible at present moment. This procedure writer has checked the previous history at [facility]. Patient was recently discharged from medical side on 02/14/2017 and patient eloped from the hospital. This procedure writer spoke to the emergency room physician, Dr. Liriano and nursing staff. VITAL SIGNS: Checked. Pulse is 92, blood pressure is 142/94, respirations 18, oxygen saturation is 96. MEDICATIONS: Reviewed, as described above. Patient is currently on Cymbalta, Klonopin, Ativan, Invega 156 IM every 4 weeks, last dose is unknown. LABS: Reviewed. Toxicology is negative for any substances. This procedure writer also reviewed crisis management evaluation. Based on documentation, the patient was referred by her because patient was bizarre and agitated at home. Patient was paranoid and delusional, having sex with her . Patient presented with illogical thought process, but has poor insight. Patient also has previous history of hospitalization in [facility] a year ago with Dr. Zacarias in [place]. MENTAL STATUS EXAMINATION: Not possible to be evaluated. Patient is deeply sleeping. Personal hygiene is acceptable, but patient seems to be careless about her appearance. Based on history, patient was delusional and paranoid. Besides that, mental status examination cannot be evaluated. IMPRESSION: As per history, patient has either bipolar disorder or schizoaffective disorder. Patient has chronic obstructive pulmonary disease and multiple medical issues. Please see medical team notes for more detailed information. PLAN: This procedure writer attempted to wake patient, but patient is deeply sleeping. Patient is status post Haldol 5 mg IM, Ativan 2 mg IM and Geodon 10 mg IM. This procedure writer cannot evaluate patient at this point. Discussed with Dr. Liriano. Decision was made to wait until patient will be more alert in order to have full examination. Patient's family needs to be involved. If patient would contract for safety and if patient's family willing to accept patient back, patient should be discharged against medical advice. If patient is willing to sign herself in, patient should be admitted to the psychiatric inpatient unit. If patient is agitated, delusional and in risk to self or others, [facility] Screening Process should be initiated. Case was discussed with Dr. Liriano and nursing staff in the emergency room. Should you have any questions, give me a call back. Thank you so much for letting me participate in the care of your patient. Ewa More MD
[2017-03-16] MEDS ORDERED: Magnesium Hydroxide Susp 30 ml UD PO PRN (20:51)
[2017-03-16] MEDS ORDERED: Alum-Mag Hydrox-Simethicone Susp (30 mL) PO PRN (20:51)
--- NOTE | 2017-03-16 23:18 | PCM.BM ---
<Michelle Navarro - Last Filed: 03/16/17 23:15> Treatment Plan Problems - Problems identified on initial assessmt DELUSIONS Date Initiated: 03/16/17 Time Initiated: 21:00 Assessment reference: NA DEPRESSION Date Initiated: 03/16/17 Time Initiated: 21:00 Assessment reference: NA Status: Active Treatment assets and liabiliti Patient Assests: cooperative, educated, self-reliant, ADL independent, negotiates basic needs, cognitively intact Patient Liabilities: live alone, financial problems, relationship conflicts, dietary restrictions - Milieu Protocol Maintain good personal hygiene: daily Encourage regular showers, every shift Remind patient to perform daily oral care, every shift Assist patient to perform ADL's Maintain personal safety: every shift Educate patient to report safety concerns to staff, every shift Monitor environment for contraband/sharps Medication safety: Monitor for expected outcome, potential side effects: every shift, Assess barriers to learning: every shift, Assess readiness for medication education: every shift Family Contact Family involvement: Family/SO is involved Family contact: Patient agrees to contact Discharge/Continuing Care - Education Needs Education Needs: Patient Medication, Patient Diagnosis/Disease Process, Patient Coping Skills, Patient Anger Management skills, Patient Community resources, Patient Health Practices/Safety, Patient Aftercare Safety Plan - Discharge Discharge Criteria: Tolerates medication w/o severe side effects, Free of paranoid thoughts, Free of agitation, Normal sleep pattern, Ability to care for self <Ewa More - Last Filed: 03/17/17 12:55> - Diagnosis (1) Schizophrenia Status: Acute Interventions: 03/17/17 12:55 Psychoeducation/psychotherapy Psychopharmacology/adjustment of medications as needed/ monitoring possible side effects Evaluate pt on daily basis Compliance with medications and follow up appointments Long acting medication if pt is noncompliant with pill form Suicide and homicide risk assessment and prevention, coping strategies, safety plan Relapse prevention Reduction of symptoms Improve functional status Possible assertive community treatment Cognitive behavioral therapy Family involvement Possible social skill training as outpatient <Masha Alvarez - Last Filed: 03/22/17 09:29>
[2017-03-17] MEDS: Levothyroxine 50 MCG TAB PO SCH ×2 (06:59→07:02)
[2017-03-17 07:26] LABS: CHOLESTEROL 306 mg/dL (130-200); GLUCOSE,FASTING 165 mg/dL (65-110)
[2017-03-17] MEDS ORDERED: Promethazine DM 6.25 mg-15 mg/5 ml Syrup PO PRN ×2 (08:30→08:32)
[2017-03-17] MEDS ORDERED: Potassium Chloride 20 mEq ER Tab PO ONE (08:39)
[2017-03-17] MEDS: Pantoprazole 40 mg EC Tab PO SCH (09:06)
[2017-03-17] MEDS: Amoxicillin-Clav 500-125 mg Tab PO SCH ×2 (09:07→16:19)
--- NOTE | 2017-03-17 14:33 | CON ---
DATE: HISTORY OF PRESENT ILLNESS: I have known Sena for a while, I have seen her before. She is a 61-year-old female who comes into the emergency room brought in by ambulance. She is having visual hallucinations for about a week. Abusing her of cheating, accusing of cheating, some confusion. No homicidal or suicidal ideation. No auditory hallucination. There is change in mentation. PAST MEDICAL HISTORY: She has a lot of medical history including hypertension, COPD, congestive heart failure, hypothyroidism, elevated cholesterol, insomnia, bipolar, postmenopausal, total hysterectomy, asthma, diabetes, anxiety, depression, cardiac cath, bilateral ankle reconstruction, and back surgery. ALLERGIES: NO KNOWN DRUG ALLERGIES. FAMILY HISTORY: Hypertension in the family. SOCIAL HISTORY: No smoke, no drink, and no drugs, but she did say cocaine, but has been clean for seven years now. CURRENT MEDICATIONS: She is supposed to be on Cogentin, Cymbalta, Synthroid, Ativan, Protonix, Ambien, aspirin, losartan, hydrochlorothiazide, Invega, and tolterodine. REVIEW OF SYSTEMS: She is quite sick today. She is coughing, congestion, and mucus. She has low-grade fever and sweats. No acute vision changes or hearing changes. She does have a sore throat with cough and congestion. No chest pain. No abdominal pain, nausea, vomiting, constipation, diarrhea, leg pain, or low back pain. Just tired and irritable. Not feeling well from being sick. No itching. No headache or dizziness. There is some anxiety. She looks sick to me. She sounds sick and nontoxic. PHYSICAL EXAMINATION: GENERAL: Alert and oriented x3. VITAL SIGNS: She has 98.2 temperature, 115 pulse, 18 respiratory rate, 185/119 blood pressure, and 98% on O2 saturation room air. HEENT: Head is atraumatic and normocephalic. Throat is red and inflamed. Extraocular muscles are intact. NECK: Positive for cervical adenopathy. Thyroid midline and nonpalpable. Appreciable lymph adenopathy except cervical at this time. LUNGS: Decreased breath sounds with congestion bilaterally, changed with cough. HEART: Regular rate. Normal S1 and S2. ABDOMEN: Soft and obese. Nontender. Positive bowel sounds. No guarding. No rebound. No CVA tenderness. EXTREMITIES: No edema. NEUROLOGIC: Cranial nerves II through XII grossly intact. GCS is 15. She can move all four extremities. Alert and oriented x3. SKIN: Warm and dry. No apparent rashes or ulcers. LABORATORY DATA: Multiple tests were done. She has a 141 sodium, potassium is 3.3, and I will give her some potassium. BUN is 11, creatinine 0.7, and GFR is greater than 60. Sugars are 163 and 165, we will put her on some insulin coverage. She has 9.4 calcium, 1.8 magnesium, total bilirubin is 0.6, AST is 33, ALT is 62, alkaline phosphatase is 97, and albumin is 4.1. Triglycerides are 469, I added Tricor. Cholesterol is 306, I am hoping that will come down with a Tricor and also LDL is 182. TSH is low at 0.45, I will adjust any Synthroid and repeat a TSH. White count is 6.6, hemoglobin is 15, hematocrit is 44, and platelets are 210. Toxicology was negative. DIAGNOSTIC DATA: Chest x-ray showed diminished inspiratory effort otherwise clear. MEDICATIONS: She is on Ambien, Ativan and Augmentin now for the bronchitis. Cogentin, Cozaar, which was increased to 100, Cymbalta, Ecotrin, Geodon, Maalox, Microzide, and milk of magnesia. I added Norvasc for the blood pressure persistently to be elevated. She is on Phenergan DM for cough, Protonix, and Synthroid which I will decrease to 25 mcg. I added Tricor and Tylenol, we will check her labs tomorrow. ASSESSMENT AND PLAN: She is here for multiple reasons; change in mentation, schizophrenia, bronchitis, hypertension, high lipids, hypothyroid, gastroesophageal reflux disease, and we will follow medically. Avelino Antoine DO
--- NOTE | 2017-03-17 14:39 | PCM.PSYCH ---
Initial Psychiatric Evaluation - Initial Psychiatric Evaluation Type of Admission: Voluntary Legal Status: Capacity (patient has capacity to sign consent for treatment) Chief Complaint (in patient's own words): "I don't know the name of my son, I just live with him...' Patient's Reaction to Hospitalization: pt was admitted for evaluation and stabilization of disorganized and agitated behavior, see ED notes for more detailed information History of Present Illness and Precipitating Events: Pt is a 61 y/o female reported h/o schizophrenia, not known h/ o suicidal attempts, pt was brought in to the hospital for evaluation of disorganized, agitated, paranoid behavior, pt was paranoid and delusional that about 50 women in her apartment having sex with each other, pt also was paranoid that her is cheating on her. pt was agitated in ED, needed to be medicated with IM ativan+geodon+haldol, this freelance writer attempted to speak to the pt yesterday, but pt was deeply sedated, over night pt woke up, was more coherent, but still disorganized, was willing to be admitted to the psych unit, signed consent for treatment, as per PES report pt said "I have a history of being admitted to the psych unit, I know what does it mean...". his freelance writer attempted to speak to the patient and the morning time in her room, patient presented to have poor personal hygiene, fair ADLs, lethargic, was not ill willing to participate in interview patient was snoring and falling asleep. pt said "I live with my son, the phone number is [phone]", when was asked what is the name of her son "[id number], I don't know his name", pt then fell back asleep, snoring. as per staff, pt ambulates, no acute distress, pt ate lunch, uses a bathroom. as per h/o: pt has long h/o mental illness, pt's pharmacy was called [facility] [phone] levothyroxine 5 g by mouth daily by Dr. Pickens Pantoprazole [address] Schwartz Lorazepam [address] mg every [address] Aldo Zacarias Ambien 10 mg at the nighttime by Dr. Zacarias We will start on/hydrochlorothiazide 160/12.5once a day by Dr. Lana out of Cymbalta 60 mg at the morning time by Dr. Zacarias Benztropine 0.5 mg daily All of the medications were filled at the beginning of the month all meds resumed as per h/o from ED pt was paranoid towards her thought he is cheating on her. past psych h/o: Pt reported that she has been to [facility] years ago but cuurently see Dr. Carreon in [place] for her psych f/u tx. as per ED PES report pt was on: Cymbalta,klonopin,ativan,Invega 156 MG IM Q 4 weeks (pt does not remember when was the last dose of Latuda. pt was not able to provide h/o abut smoking/alcohol/drugs, but as per record pt does not have h/o substance abuse. pt has multiple medical issues: HTN, hypothyroidism, bronchitis (d/w ) VS are: BP 132/93 Ps 107, Resp 22, T: 98.9 family h/o: unknown. MSE: patient presented to be sleepy, obese, poor personal hygiene, mood described "I'm not so well", affect flat, thought processes disorganized, thought content patient presented to be disorganized, internally preoccupied, was making statements which did not make much sense, patient denied thoughts of harming self or others, insight and judgment are limited, impulses are unpredictable. 03/15/17 18:37 03/15/17 18:37 Lab Results 03/17/17 06:45: TSH 3rd Generation 0.45 L 03/17/17 06:45: Fasting Glucose 165 H, Triglycerides 469 H, Cholesterol 306 H, LDL Cholesterol Direct 182 H, HDL Cholesterol 42 03/16/17 21:30: POC Glucose (mg/dL) 163 H 03/15/17 18:37: WBC 6.6 D, RBC 4.82, Hgb 15.0, Hct 44.0, MCV 91.3, MCH 31.1, MCHC 34.1, RDW 13.8, Plt Count 210, MPV 11.9 H, Gran % 55.6, Lymph % (Auto) 34.2 , [place] % (Auto) 7.4 H, Eos % (Auto) 2.6, Baso % (Auto) 0.2, Gran # 3.66, Lymph # 2.3, [place] # 0.5, Eos # 0.2, Baso # 0.01 03/15/17 18:37: Alcohol, Quantitative < 10 03/15/17 18:37: Salicylates < 1 L, Acetaminophen < 10.0 L 03/15/17 18:37: Sodium 141, Potassium 3.3 L, Chloride 104, Carbon Dioxide 29, Anion Gap 11, BUN 11, Creatinine 0.7, Est GFR ( Amer) > 60, Est GFR (Non- Af Amer) > 60, Random Glucose 224 H, Calcium 9.4, Magnesium 1.8, Total Bilirubin 0.6, AST 33, ALT 52, Alkaline Phosphatase 97, Total Protein 7.4, Albumin 4.1, Globulin 3.3, Albumin/Globulin Ratio 1.3 Vital Signs Temp Pulse Resp BP Pulse Ox 03/16/17 21:53 20 03/16/17 18:04 100 H 20 158/104 H 95 03/16/17 12:20 91 H 19 117/69 95 03/16/17 11:10 101 H 174/104 H 03/16/17 09:51 187/101 H 03/16/17 09:41 80 19 97 03/16/17 06:34 92 H 18 142/94 H 96 03/16/17 03:03 98 H 17 139/98 H 95 03/15/17 23:49 86 158/86 H 03/15/17 21:00 88 18 162/8 H 99 03/15/17 19:18 98.2 F 115 H 18 185/119 H 98 Impression: r/o schzophrenia Plan: Milieu/structure/supportive therapy Medical consult appreciated, see medical team note for more detailed info consultation for discharge plan and social issues Med management risperdal 1mg po tid for psychosis, (invega is nonformulary) ativan PRN 1mg qid for anxiety ambien 10mg po hs prn cymbalta 60mg po daily for depression all meds were resumed by Dr.Levine spangler started for bronchitis Family involvement Follow up on labs Will monitor closely evaluation for d/c planning Pt was educated about risk/benefits and alternatives of medications, coping strategies (safety plan, suicide prevention), relapse prevention, importance of follow up with psychiatrist and therapist, stay away from drugs/alcohol/smoking Current Medications: Active Medications Generic Name Dose Route Start Last Admin Trade Name Freq PRN Reason Stop Dose Admin Acetaminophen 650 mg 03/16/17 20:51 03/17/17 09:21 Tylenol 325mg Tab PO 650 mg Q4H PRN Administration Pain, Mild (1-3) Al Hydrox/Mg Hydrox/Simethicone 30 ml 03/16/17 20:51 Maalox Plus 30 Ml PO DAILY PRN Upset Stomach Amlodipine Besylate 5 mg 03/17/17 08:30 03/17/17 09:06 Norvasc PO 5 mg DAILY KALLI Administration Amoxicillin/Clavulanate Potassium 1 tab 03/17/17 08:30 03/17/17 09:07 Augmentin 500 Mg-125 Mg Tab PO 1 tab BID KALLI Administration Protocol Aspirin 81 mg 03/17/17 08:00 03/17/17 09:08 Ecotrin PO 81 mg DAILY KALLI Administration Benztropine Mesylate 1 mg 03/17/17 08:00 03/17/17 09:07 Cogentin PO 1 mg BID KALLI Administration Duloxetine HCl 60 mg 03/17/17 08:00 03/17/17 09:06 Cymbalta PO 60 mg DAILY KALLI Administration Fenofibrate 145 mg 03/17/17 08:45 03/17/17 09:38 Tricor PO 145 mg DAILY KALLI Administration Hydrochlorothiazide 12.5 mg 03/17/17 08:00 03/17/17 09:09 Microzide PO 12.5 mg DAILY KALLI Administration Levothyroxine Sodium 25 mcg 03/17/17 08:38 Synthroid PO ACB KALLI Lorazepam 1 mg 03/16/17 20:49 Ativan PO Q6 PRN Anxiety Protocol Lorazepam 2 mg 03/16/17 20:52 Ativan IM Q6H PRN Agitation Protocol Losartan Potassium 100 mg 03/17/17 08:00 03/17/17 09:07 Cozaar PO 100 mg DAILY KALLI Administration Magnesium Hydroxide 30 ml 03/16/17 20:51 Milk Of Magnesia PO DAILY PRN Constipation Pantoprazole Sodium 40 mg 03/17/17 07:30 03/17/17 09:06 Protonix Ec Tab PO 40 mg ACB KALLI Administration Promethazine HCl/Dextromethorphan 5 ml 03/17/17 08:32 03/17/17 12:11 Phenergan Dm Syrup PO 5 ml Q6H PRN Administration Cough Ziprasidone 20 mg 03/16/17 20:53 Geodon Inj IM Q8H PRN Agitation Protocol Zolpidem Tartrate 10 mg 03/16/17 20:49 Ambien PO HS PRN Insomnia Protocol Past Psychiatric History - Past Psychiatric History Pertinent Medical Hx (Current Medical&Sleep Prob, Allergies): Allergies Allergy/AdvReac Type Severity Reaction Status Date / Time No Known Allergies Allergy Verified 03/17/17 00:40 Benztropine [Cogentin] 1 tab PO DAILY 01/29/15 DULoxetine [Cymbalta] 60 mg PO DAILY 01/29/15 Levothyroxine [Synthroid] 0.05 mg PO DAILY 01/29/15 LORazepam [Ativan] 1 mg PO Q6 PRN 07/26/16 Pantoprazole Sodium [Protonix] 40 mg PO DAILY 07/26/16 Zolpidem [Ambien] 10 mg PO HS PRN 07/26/16 Aspirin [Lo-Dose Aspirin EC] 81 mg PO DAILY 09/15/16 Valsartan/Hydrochlorothiazide [Valsartan and Hydrochlorothiazide 12.5 mg-160] 1 tab PO DAILY 09/15/16 Paliperidone Palmitate [Invega Sustenna] 156 mg IM .MONTHLY 02/14/17 Tolterodine Tartrate [Tolterodine Tartrate ER] 1 tab PO DAILY 02/14/17 DSM 5 DX - Recommended/Plan of Treatment Projected ELOS: 7days Prognosis: guarded Discharge Plan and Discharge Criteria: Pt will be not depressed or manic, will be more hopeful, will be not psychotic or anxious, will be not having thoughts of harming self or others, will be tolerating medications well, will not have major side effects, will be able to function, will not pose threat to self or others. - Smoking Cessation Smoking Cessation Initiated: No Reason for not providing: pt was not able to participate in interview
[2017-03-18 07:41] LABS: HEMATOCRIT 48.7 % (36.0-48.0); MEAN CELL VOLUME 92.2 fl (80.0-105.0); MEAN CORPUSCULAR HEMOGLOBIN 31.1 pg (25.0-35.0); MEAN CORPUSCULAR HGB CONC 33.7 g/dl (31.0-37.0); RED CELL DISTRIBUTION WIDTH 13.9 % (11.5-14.5); WHITE BLOOD COUNT 7.7 10^3/ul (4.5-11.0)
[2017-03-18 08:02] LABS: ALB/GLOB RATIO 1.2 (1.1-1.8); ALKALINE PHOSPHATASE 101 U/L (38-126); ALT/SGPT 41 U/L (7-56); AST/SGOT 42 U/L (14-36); BLOOD UREA NITROGEN 13 mg/dL (7-21); CALCIUM 9.9 mg/dL (8.4-10.5); CARBON DIOXIDE 29 mmol/L (21-33); CHLORIDE 105 mmol/L (98-107); GFR AFRICAN-AMERICAN > 60; GLUCOSE,RANDOM 193 mg/dL (70-110); POTASSIUM 3.9 mmol/L (3.6-5.0); SODIUM 143 mmol/L (132-148); TOTAL PROTEIN 7.9 g/dL (5.8-8.3)
[2017-03-18] MEDS: Levothyroxine 25 MCG TAB PO SCH (08:50)
[2017-03-18] MEDS: Amoxicillin-Clav 500-125 mg Tab PO SCH ×2 (08:51→17:25)
[2017-03-18] MEDS: Pantoprazole 40 mg EC Tab PO SCH (08:52)
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
[2017-03-18] MEDS: Insulin Reg-MEDIUM-Coverage SC SCH ×2 (16:45→21:51)
[2017-03-19] MEDS: Levothyroxine 25 MCG TAB PO SCH (08:32)
[2017-03-19] MEDS: Pantoprazole 40 mg EC Tab PO SCH (08:33)
[2017-03-19] MEDS: Amoxicillin-Clav 500-125 mg Tab PO SCH ×2 (08:33→16:55)
--- NOTE | 2017-03-19 09:55 | PN ---
DATE: 03/18/2017 SUBJECTIVE: I saw Tomer walking round the halls. We sat and talk for a little bit. She is doing much better overall with her bronchitis, less cough. I believe the antibiotics are helping her a lot. Dr. Ewa More, the psychiatrist, told me she was very lethargic for the past two days. When I saw her, she was okay and again today, I saw her, she was okay, and Dr. Ewa More said she was doing better today too. The patient was asking to leave. I do not think she can go yet mentally. MEDICATIONS: She is on Ambien, Ativan, Augmentin, Cogentin, Cozaar, Cymbalta, Ecotrin, Maalox, Microzide, milk of magnesia, Nicoderm patch, Norvasc, Phenergan, Protonix, Risperdal, Synthroid, TriCor and Tylenol. PHYSICAL EXAMINATION: GENERAL: She is alert and comfortable. VITAL SIGNS: 97.6 temperature, 89 pulse, 141/96 blood pressure; I am going to have to adjust the blood pressure medication, 16 respiratory rate, and 95% O2 sat on room air. HEENT: Head is atraumatic and normocephalic. Throat is moist. NECK: Supple. HEART: Regular rate. LUNGS: Clear today. Little congestion. Much better than yesterday, I would say 80% better in her cough. ABDOMEN: Soft and obese. EXTREMITIES: No edema. LABORATORY DATA: She has a 7.7 white count, 16.4 hemoglobin, 40.7 hematocrit with 199 platelets. Sodium 143, potassium 3.9, BUN 30, creatinine 0.8, GFR is greater than 60, sugar is 164, hemoglobin A1c is 7.9, calcium is 9.1, total bilirubin is 1, AST is 42, ALT is 41, alkaline phosphatase is 101 and TSH is 1.36. ASSESSMENT AND PLAN: She has been seen by Psychiatry. She is here for numerous reasons, schizophrenia, bronchitis, hypertension, hypothyroid, high lipids, anxiety. She has hypertension, elevated blood sugars, high cholesterol. We will keep a very close eye on her. Avelino Antoine DO
--- NOTE | 2017-03-19 12:42 | PN ---
SUBJECTIVE: I saw Sena in the psychiatric floor. She is walking around, doing better. Her cough is actually even improving. She told that she wants to go home and she wants to talk to Dr. Mcneil, the psychiatrist. She is breathing well and trying to participate. MEDICATIONS: She is on Ambien, Ativan, Augmentin, Cogentin, Cozaar, Cymbalta, Ecotrin, Geodon, Glucophage, insulin, Maalox, Microzide, milk of magnesia, Nicoderm, Phenergan, Protonix, Risperdal, Synthroid, TriCor, and Tylenol. PHYSICAL EXAMINATION: VITAL SIGNS: 98.7 temperature, 91 pulse, 144/103 blood pressure. I will adjust her blood pressure medications. It was 128/81 yesterday and now it is going high. HEENT: Her head is atraumatic, normocephalic. HEART: Regular rate. LUNGS: Clear. She is coughing with congestion . ABDOMEN: Soft. Positive bowel sounds. Obese. EXTREMITIES: No edema. LABORATORY DATA: She has 7.7 white count yesterday, 16.4 hemoglobin, 40.7 hematocrit, 199 platelets. Her last blood sugar was 138. Hemoglobin A1c was 7.9. Now, her blood pressure has crept up a little bit. She is on Cozaar 100 and Norvasc 10. I am going to add another medication to her list for elevated blood pressure. Avelino Antoine DO MTDD
[2017-03-19] MEDS: Insulin Reg-MEDIUM-Coverage SC SCH ×4 (13:08→22:18)
--- NOTE | 2017-03-19 14:10 | PCM.PYCHPN ---
Psychiatric Progress Note - Psychiatric Progress Note Patient seen today, length of contact: 30min Patient Chief Complaint: "I was seeing kids playing on my bed..." Medical Problems: 03/18/17 07:20 03/18/17 07:20 Lab Results 03/18/17 08:02: POC Glucose (mg/dL) 164 H 03/18/17 07:20: Hemoglobin A1c 7.9 H D 03/18/17 07:20: TSH 3rd Generation 1.36 03/18/17 07:20: Sodium 143, Potassium 3.9, Chloride 105, Carbon Dioxide 29, Anion Gap 13, BUN 13, Creatinine 0.8, Est GFR ( Amer) > 60, Est GFR (Non- Af Amer) > 60, Random Glucose 193 H, Calcium 9.9, Total Bilirubin 1.0, AST 42 H D, ALT 41, Alkaline Phosphatase 101, Total Protein 7.9, Albumin 4.3, Globulin 3.6, Albumin/Globulin Ratio 1.2 03/18/17 07:20: WBC 7.7, RBC 5.28, Hgb 16.4 H, Hct 48.7 H, MCV 92.2, MCH 31.1, MCHC 33.7, RDW 13.9, Plt Count 199, MPV 12.0 H 03/17/17 21:52: POC Glucose (mg/dL) 150 H 03/17/17 06:45: TSH 3rd Generation 0.45 L 03/17/17 06:45: Fasting Glucose 165 H, Triglycerides 469 H, Cholesterol 306 H, LDL Cholesterol Direct 182 H, HDL Cholesterol 42 03/16/17 21:30: POC Glucose (mg/dL) 163 H 03/15/17 18:37: WBC 6.6 D, RBC 4.82, Hgb 15.0, Hct 44.0, MCV 91.3, MCH 31.1, MCHC 34.1, RDW 13.8, Plt Count 210, MPV 11.9 H, Gran % 55.6, Lymph % (Auto) 34.2 , [place] % (Auto) 7.4 H, Eos % (Auto) 2.6, Baso % (Auto) 0.2, Gran # 3.66, Lymph # 2.3, [place] # 0.5, Eos # 0.2, Baso # 0.01 03/15/17 18:37: Alcohol, Quantitative < 10 03/15/17 18:37: Salicylates < 1 L, Acetaminophen < 10.0 L 03/15/17 18:37: Sodium 141, Potassium 3.3 L, Chloride 104, Carbon Dioxide 29, Anion Gap 11, BUN 11, Creatinine 0.7, Est GFR ( Amer) > 60, Est GFR (Non- Af Amer) > 60, Random Glucose 224 H, Calcium 9.4, Magnesium 1.8, Total Bilirubin 0.6, AST 33, ALT 52, Alkaline Phosphatase 97, Total Protein 7.4, Albumin 4.1, Globulin 3.3, Albumin/Globulin Ratio 1.3 Vital Signs Temp Pulse Resp BP Pulse Ox 03/18/17 08:51 89 141/96 H 03/18/17 07:00 97.6 F 89 16 141/96 H 03/18/17 06:38 97.6 F 89 16 141/96 H 03/17/17 15:43 88 160/109 H 03/16/17 21:53 20 03/16/17 18:04 100 H 20 158/104 H 95 03/16/17 12:20 91 H 19 117/69 95 03/16/17 11:10 101 H 174/104 H 03/16/17 09:51 187/101 H 03/16/17 09:41 80 19 97 03/16/17 06:34 92 H 18 142/94 H 96 03/16/17 03:03 98 H 17 139/98 H 95 03/15/17 23:49 86 158/86 H 03/15/17 21:00 88 18 162/8 H 99 03/15/17 19:18 98.2 F 115 H 18 185/119 H 98 pt was seen by medical team pt is on abx for bronchitis Diagnostic Results: 03/18/17 07:20 03/18/17 07:20 Lab Results 03/19/17 11:57: POC Glucose (mg/dL) 158 H 03/19/17 08:07: POC Glucose (mg/dL) 138 H 03/18/17 21:40: POC Glucose (mg/dL) 151 H 03/18/17 16:15: POC Glucose (mg/dL) 161 H 03/18/17 08:02: POC Glucose (mg/dL) 164 H 03/18/17 07:20: Hemoglobin A1c 7.9 H D 03/18/17 07:20: TSH 3rd Generation 1.36 03/18/17 07:20: Sodium 143, Potassium 3.9, Chloride 105, Carbon Dioxide 29, Anion Gap 13, BUN 13, Creatinine 0.8, Est GFR ( Amer) > 60, Est GFR (Non- Af Amer) > 60, Random Glucose 193 H, Calcium 9.9, Total Bilirubin 1.0, AST 42 H D, ALT 41, Alkaline Phosphatase 101, Total Protein 7.9, Albumin 4.3, Globulin 3.6, Albumin/Globulin Ratio 1.2 03/18/17 07:20: WBC 7.7, RBC 5.28, Hgb 16.4 H, Hct 48.7 H, MCV 92.2, MCH 31.1, MCHC 33.7, RDW 13.9, Plt Count 199, MPV 12.0 H 03/17/17 21:52: POC Glucose (mg/dL) 150 H 03/17/17 06:45: TSH 3rd Generation 0.45 L 03/17/17 06:45: Fasting Glucose 165 H, Triglycerides 469 H, Cholesterol 306 H, LDL Cholesterol Direct 182 H, HDL Cholesterol 42 03/16/17 21:30: POC Glucose (mg/dL) 163 H 03/15/17 18:37: WBC 6.6 D, RBC 4.82, Hgb 15.0, Hct 44.0, MCV 91.3, MCH 31.1, MCHC 34.1, RDW 13.8, Plt Count 210, MPV 11.9 H, Gran % 55.6, Lymph % (Auto) 34.2 , [place] % (Auto) 7.4 H, Eos % (Auto) 2.6, Baso % (Auto) 0.2, Gran # 3.66, Lymph # 2.3, [place] # 0.5, Eos # 0.2, Baso # 0.01 03/15/17 18:37: Alcohol, Quantitative < 10 03/15/17 18:37: Salicylates < 1 L, Acetaminophen < 10.0 L 03/15/17 18:37: Sodium 141, Potassium 3.3 L, Chloride 104, Carbon Dioxide 29, Anion Gap 11, BUN 11, Creatinine 0.7, Est GFR ( Amer) > 60, Est GFR (Non- Af Amer) > 60, Random Glucose 224 H, Calcium 9.4, Magnesium 1.8, Total Bilirubin 0.6, AST 33, ALT 52, Alkaline Phosphatase 97, Total Protein 7.4, Albumin 4.1, Globulin 3.3, Albumin/Globulin Ratio 1.3 Vital Signs Temp Pulse Resp BP Pulse Ox 03/19/17 07:00 144/103 H 03/19/17 06:57 98.7 F 91 H 16 144/103 H 03/18/17 16:00 108 H 128/81 03/18/17 08:51 89 141/96 H 03/18/17 07:00 97.6 F 89 16 141/96 H 03/18/17 06:38 97.6 F 89 16 141/96 H 03/17/17 15:43 88 160/109 H 03/16/17 21:53 20 03/16/17 18:04 100 H 20 158/104 H 95 03/16/17 12:20 91 H 19 117/69 95 03/16/17 11:10 101 H 174/104 H 03/16/17 09:51 187/101 H 03/16/17 09:41 80 19 97 03/16/17 06:34 92 H 18 142/94 H 96 03/16/17 03:03 98 H 17 139/98 H 95 03/15/17 23:49 86 158/86 H 03/15/17 21:00 88 18 162/8 H 99 03/15/17 19:18 98.2 F 115 H 18 185/119 H 98 DSM 5 Symptoms Update: Pt is a 61 y/o (correction to my previous notes) female reported h/o schizophrenia, not known h/o suicidal attempts, pt was brought in to the hospital for evaluation of disorganized, agitated, paranoid behavior, pt was paranoid and delusional that about 50 women in her apartment having sex with each other, pt also was paranoid that her boyfriend (correction to my previous note) is cheating on her. pt was agitated in ED, needed to be medicated with IM ativan+geodon+haldol, pt required further evaluation and stabilization, pt was admitted under voluntary status. pt was seen and examined today at the morning time at the treatment team meeting , patient presented to be disorganized, started to talk to this literary writer exclusively in Tristanian, then this literary writer asked Nurse condominium property manager (who speaks Tristanian ) to explain to the pt that translation line will be called pt replied "look he can speak Swiss, why do you need me?", pt is confused, has impression that this literary writer will need pt's help to translate to the nurse condominium property manager. After that pt said "I know Swiss very well, I don't need to have translation". pt then was saying that she will buy this unit and nurses as well as this literary writer a lerner if she could go home today. pt is very disorganized, was jumping from one subject to another. Pt said that she has court on Wednesday, pt said "most likely Melanie Carroll is not know where I am". pt refused to give consent for collaterals two days ago, pt gave consent, but clinic was closed yesterday and today as well, last dose of Invega sustenna is unknown, pt said last dose was in September 09?. pt said that she is court mandated to have Injection of Invega and court mandated to attend DTP. pt has h/o being in [facility] for 4[facility]. pt said she has episodes when she could not remember things, pt has no recollection of the circumstances of her admission, r/o seizure d/o?, will call Neurology consult. 03/17/17: as per director of social services collaterals from pt's daughter: Sandi Arechiga( [phone]). pt has a hx of using crack cocaine and abusing prescription pills until 2007 in which she was sent to [facility] for one year and then transferred to [facility] for 4 years. Pt's daughter reports pt has not been hospitalized in several years. Pt's daughter reports pt has hx of attempting to commit suicide by drug overdose from the 1989's-1999s. Pt has no known recent suicide attempts. Pt reported to have hx of aggressive behaviors. as per staff pt is compliant with meds, needy and demanding to be d/c, but refused to sign 48hr notice. pt twas seen by medical team, on abx for bronchitis. MSE: patient presented To be more alert, pleasant, corporative, personal hygiene is improving, fare ADLs, good eye contact, speech was overproductive, patient described "Let me go, I will buy you a lerner...", thought process is disorganized, thought content patient said that prior to come to the hospital she was seeing "children playing on my bed, I saw a lot of stuff", denied paranoid ideation, patient denied thoughts of harming herself or others, denied intent or plan, insight and judgment are limited, impulses are unpredictable. Impression: r/o schzophrenia r/o delirium (improving) Plan: Milieu/structure/supportive therapy Medical consult appreciated, see medical team note for more detailed info consultation for discharge plan and social issues Med management risperdal 2mg po amhs for psychosis, (invega is nonformulary) ativan d/c vistaril 50mg po tid for anxiety pt gave consent to obtain collaterals from t's boyfriend Venkat Vargas and clinic, SW was advised to obtain med list and when was pt's last injection, clinic is closed today. ambien 10mg po hs prn cymbalta 60mg po daily for depression all meds were resumed by Dr.Levine spangler started for bronchitis Family involvement Follow up on labs Will monitor closely evaluation for d/c planning Pt was educated about risk/benefits and alternatives of medications, coping strategies (safety plan, suicide prevention), relapse prevention, importance of follow up with psychiatrist and therapist, stay away from drugs/alcohol/smoking Medication Change: Yes (risperdal increased) Medical Record Reviewed: Yes Consults ordered or reviewed: medical consult appreciated Mental Status Examination - Homicidal Ideation Homicidal Ideation: No Goal/Treatment Plan - Goal/Treatment Plan Need for Continued Stay: Remain at risks for inpatient hospitalization, Severe depression anxiety, Discharge may exacerbated symptoms, Severe functional impairment Estimated Date of D/C: 03/23/17
[2017-03-20] MEDS: Levothyroxine 25 MCG TAB PO SCH (06:32)
[2017-03-20] MEDS: Pantoprazole 40 mg EC Tab PO SCH (06:32)
[2017-03-20] MEDS: Amoxicillin-Clav 500-125 mg Tab PO SCH ×2 (08:17→16:06)
[2017-03-20] MEDS: Insulin Reg-MEDIUM-Coverage SC SCH ×4 (09:03→23:12)
--- NOTE | 2017-03-20 09:33 | PCM.PYCHPN ---
Psychiatric Progress Note - Psychiatric Progress Note Patient seen today, length of contact: 25 min Patient Chief Complaint: "okay" Problems Identified/Issues Discussed: I reviewed assessment and recent notes. I interviewed patient in the hallway and dayroom. Grooming is adequate. Patient is fairly cooperative with my questioning. She reports that she is feeling "okay". Her affect is flat and responses are a little hesitant. She has some difficulty providing current month and year. Patient denies having any hallucinations or paranoia. Appears preoccupied and a little oddly related but wasn't observed to be responding to internal stimuli. She seems a little thought blocked or unsure of her self. Some responses are unrelated to questioning and her thought process remains disorganized. Patient denies any side effects from her medications and reports that she slept well "I have been sleeping well for the last 3 days". She denies any new discomfort or pain. Staff notes indicate that patient has been in fair control. Seems forgetful and disconnected. At times she wanders purposelessly. Nonetheless her thought process is clearing a little and patient can communicate needs. There were no behavioral overnight. Diagnostic Results: r/o schzophrenia r/o delirium (improving) Medication Change: No ( ) Medical Record Reviewed: Yes Mental Status Examination - Cognitive Function Orientation: Person, Place Memory: Impaired Attention: Poor Concentration: Poor Association: Loose - Mood Mood: Other ( "okay".) - Affect Affect: Flat - Speech Speech: Stammering (mild, hesitant responses) - Formal Thought Process Formal Thought Process: Delusions, Paranoia, Loosening of associations - Suicidal Ideation Suicidal Ideation: No - Homicidal Ideation Homicidal Ideation: No Goal/Treatment Plan - Goal/Treatment Plan Need for Continued Stay: Remain at risks for inpatient hospitalization, Severe depression anxiety, Discharge may exacerbated symptoms, Severe functional impairment Progress Toward Problem(s) and Goals/Treatment Plan: * c/w current tx and plan * No new weekend labs thus far * Vitals reviewed and noted below: Selected Entries 03/18/17 03/18/17 03/19/17 08:51 16:00 06:57 Temperature 98.7 F Pulse Rate 89 108 H 91 H Respiratory 16 Rate Blood Pressure 141/96 H 128/81 144/103 H 03/19/17 03/19/17 07:00 16:21 Temperature 98.7 F Pulse Rate 100 H Respiratory Rate Blood Pressure 144/103 H 125/87 Estimated Date of D/C: 03/23/17
--- NOTE | 2017-03-20 12:58 | PN ---
DATE: SUBJECTIVE: I saw Sena sitting up by the nurses station. She is getting interviewed by social work nurse. She wants to go home. She said she is going to home on Wednesday, that is what they are telling her she wants to talk to the psychiatrist. She said she is feeling better. She is on Ambien, Ativan, Augmentin for bronchitis which is definitely improving, Cogentin, Cozaar, Cymbalta, Ecotrin, Geodon, Glucophage, insulin, Lopressor, Maalox, Microzide, milk of magnesia. Nicoderm, Norvasc, Phenergan, Protonix, Risperdal, Synthroid, TriCor, Tylenol and Vistaril. PHYSICAL EXAMINATION: GENERAL: She is eating. Alert and comfortable. Talking with me, she wants to go home. VITAL SIGNS: 97.7 temperature, 79 pulse, 161/90 blood pressure, 125/87 blood pressure, 17 respiratory rate, 92% O2 sat on room air. HEENT: Head is atraumatic and normocephalic. Throat is moist. NECK: Supple. HEART: Regular rate. LUNGS: Clear to auscultation. ABDOMEN: Soft, obese and nontender. EXTREMITIES: No edema. LABORATORY DATA: She had lab on 03/18/2017 which was good. Last blood sugar was 145 which was good. ASSESSMENT AND PLAN: She will be seen by psychiatry. She is here for diabetes, schizophrenia, bronchitis, hypertension, gastroesophageal reflux disease, anxiety and hypothyroid. Overall, medically, she is doing fairly well. She also has high lipids. As per psychiatry, we will continue with aggressive treatment and care and encouragement on Sena Toribio. Avelino Antoine DO
[2017-03-21] MEDS: Pantoprazole 40 mg EC Tab PO SCH (07:17)
[2017-03-21] MEDS: Levothyroxine 25 MCG TAB PO SCH (07:17)
[2017-03-21] MEDS: Insulin Reg-MEDIUM-Coverage SC SCH ×4 (08:03→21:54)
[2017-03-21] MEDS: Amoxicillin-Clav 500-125 mg Tab PO SCH (09:05)
--- NOTE | 2017-03-21 09:05 | PCM.PYCHPN ---
Psychiatric Progress Note - Psychiatric Progress Note Patient seen today, length of contact: 25 min Patient Chief Complaint: "okay" Problems Identified/Issues Discussed: I reviewed recent notes and interviewed patient at bedside. Grooming is adequate. Patient is fairly cooperative with my questioning. She reports that she is feeling "all right". Her affect remains flat and responses are hesitant. She still has some difficulty providing current month and year. Believed it was Wednesday today. And then asked again about the day even after I provided this information to her a few minutes prior. Patient denies having any hallucinations or paranoia. She still appears preoccupied and oddly related but wasn't observed to be responding to internal stimuli. She is a little thought blocked or unsure of herself. Some responses are unrelated to questioning and her thought process remains disorganized. Patient denies any side effects from her medications and reports that her sleep was restless. She denies any new discomfort or pain. Staff notes indicate that patient has been labile. She was argumentative and angry about her lunch yesterday--staff needed to intervene. Patient also seems forgetful and disconnected. At times she wanders purposelessly. Nonetheless her thought process is clearing a little since admission and patient can communicate needs. There were no major behavioral overnight. Diagnostic Results: r/o schzophrenia r/o delirium (improving) Medication Change: No ( ) Medical Record Reviewed: Yes Mental Status Examination - Cognitive Function Orientation: Person, Place Memory: Impaired Attention: Poor Concentration: Poor Association: Loose - Mood Mood: Other ( "okay".) - Affect Affect: Flat - Speech Speech: Stammering (mild, hesitant responses) - Formal Thought Process Formal Thought Process: Delusions, Paranoia, Loosening of associations - Suicidal Ideation Suicidal Ideation: No - Homicidal Ideation Homicidal Ideation: No Goal/Treatment Plan - Goal/Treatment Plan Need for Continued Stay: Remain at risks for inpatient hospitalization, Severe depression anxiety, Discharge may exacerbated symptoms, Severe functional impairment Progress Toward Problem(s) and Goals/Treatment Plan: * c/w current tx and plan * Appreciate f/u by Dr. Antoine on 03/20/17 * No new weekend labs thus far * Vitals reviewed and noted below: Selected Entries 03/19/17 03/20/17 03/20/17 16:21 06:52 08:17 Temperature 98.7 F 97.7 F Pulse Rate 100 H 79 Respiratory 17 Rate Blood Pressure 125/87 161/90 H 161/90 H O2 Sat by Pulse 93 L Oximetry 03/20/17 16:30 Temperature Pulse Rate 80 Respiratory Rate Blood Pressure 124/83 O2 Sat by Pulse Oximetry Estimated Date of D/C: 03/23/17
--- NOTE | 2017-03-21 14:15 | PN ---
DATE: SUBJECTIVE: I saw her in the Psychiatric floor. We had a nice chat this morning. She is actually wants to go home, I understand the plan that she is going to go home on Wednesday. She is finally understanding that is way it is going to be. She is improved since she got in. She came in for depression and schizophrenia. She also has diabetes. She had bronchitis, hypertension, GERD, anxiety; however at present, she is smoker. We did discuss the change in diet, low cholesterol, low sugar and weight loss diet and also quitting smoking. MEDICATIONS: She is currently on Ambien, Ativan, Cogentin, Cozaar, Cymbalta, Ecotrin, Geodon, Glucophage, insulin, Lopressor, Maalox, Microzide, milk of magnesia, Nicoderm, Norvasc, Phenergan DM, which I discontinued, Augmentin, which I discontinued, Protonix, Risperdal, Synthroid, TriCor, Tylenol, and Vistaril. PHYSICAL EXAMINATION: VITAL SIGNS: She has 97.7 temperature, 81 pulse, 148/95 blood pressure, and 16 respiratory rate. HEENT: Head is atraumatic and normocephalic. HEART: Regular rate. LUNGS: Decreased breath sounds, but clear. ABDOMEN: Obese and nontender. Positive bowel sounds. EXTREMITIES: No edema. LABORATORY DATA: Last labs from 03/18/2017,, she did well with the CBC. Her last blood sugar was 130. Chemistry on 03/18/2017 was also good. ASSESSMENT AND PLAN: She has been seen by psychiatry. I discontinued the Augmentin and Phenergan. I will continue to follow with Psychiatry. Avelino Antoine DO
--- NOTE | 2017-03-21 21:47 | CON ---
DATE: HISTORY OF PRESENT ILLNESS: This is a 61-year-old female who brought to the hospital with complaint of visual hallucinations for a week and altered mental status, confusion, called to evaluate the patient with the past medical history of hypertension, COPD, CHF, hypothyroidism, bipolar, asthma, and depression. ALLERGIES: NO KNOWN DRUG ALLERGIES. REVIEW OF SYSTEMS: 10-point review of system was negative. The patient is ambulating in the hallway. PHYSICAL EXAMINATION HEENT: Normocephalic and atraumatic. NECK: Supple. NEUROLOGIC: Awake, alert and oriented x3. No aphasia. Cranial nerves II through XII are tested. Pupils reactive. EOM intact. Visual fuchs full. No facial asymmetry. Tongue midline. Motor examination, moves all the extremities equally. Tone normal. Deep tendon reflexes 1+. Both plantars are downgoing. Sensory appears intact. Cerebellar and gait deferred. IMPRESSION: Intermittent confusional state. We will order the CAT scan of the head without contrast. Continue present management. We will followup. Jono Bowie MD
[2017-03-22] MEDS: Levothyroxine 25 MCG TAB PO SCH (06:53)
[2017-03-22] MEDS: Pantoprazole 40 mg EC Tab PO SCH (06:53)
[2017-03-22] MEDS: Insulin Reg-MEDIUM-Coverage SC SCH ×4 (08:08→21:28)
--- NOTE | 2017-03-22 11:34 | PN ---
DATE: SUBJECTIVE: I saw Sena in the Psychiatric floor. She just finished her breakfast. She ate everything. She is in good sprits. She is asking to go home. She was told she is going to home on Wednesday, but she would like to go home today. Her boyfriend is now at [facility] area. She is very upset. She is on Ambien, Ativan, Cogentin, Cozaar, Cymbalta, Ecotrin, Geodon, Glucophage, insulin, Lopressor, Maalox, Microzide, milk of magnesia, Nicoderm, Norvasc, Protonix, Risperdal, Synthroid, TriCor, Tylenol, and Vistaril. PHYSICAL EXAMINATION VITAL SIGNS: She has a 97.6 temperature, 90 pulse, 140/94 blood pressure and 135/77 blood pressure, 17 respiratory rate. HEENT: Head is atraumatic and normocephalic. HEART: Regular rate. LUNGS: Clear to auscultation. ABDOMEN: Soft, morbidly obese and nontender. EXTREMITIES: No edema. LABORATORY DATA: Her last labs, she had 94 sugar. ASSESSMENT AND PLAN: She is being seen by Neurology. Intermittent confusional state. I ordered a CAT of the head, which is pending. Will continue with aggressive treatment and care. She was very comfortable and calm this morning. She has got schizophrenia, diabetes, she had bronchitis much better, hypertension, high lipids, anxiety and she was a smoker and we are trying to get her to quit. Avelino Antoine DO
--- NOTE | 2017-03-22 12:22 | CT ---
PROCEDURE: CT HEAD WITHOUT CONTRAST. HISTORY: Confusion COMPARISON: None available. TECHNIQUE: Axial computed tomography images were obtained through the head/brain without intravenous contrast. Radiation dose: Total exam DLP = 726 mGy-cm. This CT exam was performed using one or more of the following dose reduction techniques: Automated exposure control, adjustment of the mA and/or kV according to patient size, and/or use of iterative reconstruction technique. FINDINGS: HEMORRHAGE: No intracranial hemorrhage. BRAIN: No mass effect or edema. No atrophy or chronic microvascular ischemic changes. VENTRICLES: Unremarkable. No hydrocephalus. CALVARIUM: Unremarkable. PARANASAL SINUSES: Unremarkable as visualized. No significant inflammatory changes. MASTOID AIR CELLS: Unremarkable as visualized. No inflammatory changes. OTHER FINDINGS: None. IMPRESSION: No acute findings
--- NOTE | 2017-03-22 14:06 | PCM.PYCHPN ---
<Shari Heart - Last Filed: 03/22/17 14:06> Psychiatric Progress Note - Psychiatric Progress Note Patient seen today, length of contact: 25 min Patient Chief Complaint: "I really want to get out and see what is going on with my brother" Problems Identified/Issues Discussed: Patient was seen in treatment team. She is oriented, however she is easily confused and is circumstantial and tangential in conversation. She is preoccupied with her brother and his multiple medical conditions. She denies any psychiatric symptoms but appears to have little insight. Medication Change: No ( ) Medical Record Reviewed: Yes Mental Status Examination - Cognitive Function Orientation: Person, Place Memory: Impaired Attention: Poor Concentration: Poor Association: Loose - Mood Mood: Other ( "okay".) - Affect Affect: Flat - Speech Speech: Stammering (mild, hesitant responses) - Formal Thought Process Formal Thought Process: Delusions, Paranoia, Loosening of associations - Suicidal Ideation Suicidal Ideation: No - Homicidal Ideation Homicidal Ideation: No Goal/Treatment Plan - Goal/Treatment Plan Need for Continued Stay: Remain at risks for inpatient hospitalization, Severe depression anxiety, Discharge may exacerbated symptoms, Severe functional impairment Estimated Date of D/C: 03/23/17 <Ewa More - Last Filed: 03/26/17 17:40> Psychiatric Progress Note - Psychiatric Progress Note DSM 5 Symptoms Update: addendum to COMMERCIAL LOAN UNDERWRITER note: Pt is a 61 y/o (correction to my previous notes) female reported h/o schizophrenia, not known h/o suicidal attempts, pt was brought in to the hospital for evaluation of disorganized, agitated, paranoid behavior, pt was paranoid and delusional that about 50 women in her apartment having sex with each other, pt also was paranoid that her boyfriend (correction to my previous note) is cheating on her. pt was agitated in ED, needed to be medicated with IM ativan+geodon+haldol, pt required further evaluation and stabilization, pt was admitted under voluntary status. as per COMMERCIAL LOAN UNDERWRITER report pt was very confused, disorganized. pt said that she is court mandated to have Injection of Invega and court mandated to attend DTP. pt has h/o being in [facility] for 4[facility]. pt said she has episodes when she could not remember things, pt has no recollection of the circumstances of her admission, r/o seizure d/o?, will call Neurology consult. as per staff pt is compliant with meds, needy and demanding to be d/c, but refused to sign 48hr notice. pt twas seen by medical team, on abx for bronchitis. Impression: r/o schzophrenia r/o delirium (improving) Plan: Milieu/structure/supportive therapy Medical consult appreciated, see medical team note for more detailed info consultation for discharge plan and social issues Med management risperdal for psychosis, (invega is nonformulary) ativan d/c vistaril 50mg po tid for anxiety pt gave consent to obtain collaterals from t's boyfriend Venkat Vargas and clinic, SW was advised to obtain med list and when was pt's last injection, clinic is closed today. ambien 10mg po hs prn cymbalta 60mg po daily for depression all meds were resumed by abx started for bronchitis Family involvement Follow up on labs Will monitor closely evaluation for d/c planning Pt was educated about risk/benefits and alternatives of medications, coping strategies (safety plan, suicide prevention), relapse prevention, importance of follow up with psychiatrist and therapist, stay away from drugs/alcohol/smoking Goal/Treatment Plan - Goal/Treatment Plan Need for Continued Stay: Remain at risks for inpatient hospitalization, Severe depression anxiety, Discharge may exacerbated symptoms, Severe functional impairment Estimated Date of D/C: 04/02/17
--- NOTE | 2017-03-22 18:04 | CP.PCM.PCO ---
<Conchita Mccain - Last Filed: 03/22/17 18:02> Physician Communication Note - Physician Communication Note Physician Communication Note: CT head reviewed, normal. Continue current mangement <Barrett Bowie - Last Filed: 03/22/17 22:02> Attending/Attestation - Attestation I have personally seen and examined this patient.: Yes I have fully participated in the care of the patient.: Yes I have reviewed all pertinent clinical information: Yes
[2017-03-23] MEDS: Pantoprazole 40 mg EC Tab PO SCH (08:18)
[2017-03-23] MEDS: Levothyroxine 25 MCG TAB PO SCH (08:19)
[2017-03-23] MEDS: Insulin Reg-MEDIUM-Coverage SC SCH ×4 (08:28→23:01)
[2017-03-23 09:44] LABS: BASO # 0.02 K/mm3 (0.0-2.0); BASO % 0.3 % (0.0-3.0); EOS % 0.5 % (1.5-5.0); GRAN # 5.68 (1.4-6.5); HEMATOCRIT 42.7 % (36.0-48.0); LYMPH # 1.1 (1.2-3.4); LYMPH % 15.6 % (22.0-35.0); MEAN CELL VOLUME 92.6 fl (80.0-105.0); MEAN CORPUSCULAR HEMOGLOBIN 30.8 pg (25.0-35.0); MEAN CORPUSCULAR HGB CONC 33.3 g/dl (31.0-37.0); MEAN PLATELET VOLUME 11.8 fl (7.0-11.0); MONO # 0.4 (0.1-0.6); MONO % 5.6 % (1.0-6.0); RED CELL DISTRIBUTION WIDTH 13.5 % (11.5-14.5); WHITE BLOOD COUNT 7.3 10^3/ul (4.5-11.0)
[2017-03-23 09:58] LABS: ALB/GLOB RATIO 1.6 (1.1-1.8); ALKALINE PHOSPHATASE 67 U/L (38-126); ALT/SGPT 38 U/L (7-56); AST/SGOT 28 U/L (14-36); BILIRUBIN,TOTAL 0.8 mg/dL (0.2-1.3); BLOOD UREA NITROGEN 20 mg/dL (7-21); CALCIUM 9.9 mg/dL (8.4-10.5); CARBON DIOXIDE 27 mmol/L (21-33); CHLORIDE 102 mmol/L (98-107); GFR AFRICAN-AMERICAN > 60; GLUCOSE,RANDOM 190 mg/dL (70-110); POTASSIUM 4.1 mmol/L (3.6-5.0); SODIUM 140 mmol/L (132-148)
--- NOTE | 2017-03-23 10:31 | PN ---
SUBJECTIVE: I saw her walking around on the floor of the Psych Unit. She is asking me when she is going to go home. I told her again, it is up to Psychiatry. She thought she was going home today, but she is not sure. She tells me she feels better. PHYSICAL EXAMINATION: VITAL SIGNS: She has a 97.6 temperature, 85 pulse, 137/85 blood pressure, 16 respiratory rate. HEENT: Head is atraumatic and normocephalic. HEART: Regular rate. LUNGS: Clear to auscultation. ABDOMEN: Soft, obese. EXTREMITIES: No edema. LABORATORY DATA: Last labs on the , she did very well. Last blood sugar was 126. ASSESSMENT AND PLAN: She is being seen by Neurology. Head CT was normal throughout the case. Medically, she is stable. As per Psychiatry, we will continue with aggressive treatment and care on Sena Toribio who had diabetes, schizophrenia, bronchitis, hypertension, anxiety, hypothyroid and high lipids. Avelino Antoine DO
[2017-03-23] MEDS ORDERED: INVEGA SUSTENNA 156 MG IM ONE (14:00)
--- NOTE | 2017-03-23 15:38 | PCM.PYCHPN ---
Psychiatric Progress Note - Psychiatric Progress Note Patient seen today, length of contact: 30min Patient Chief Complaint: "I saw that computer programming supervisor" Medical Problems: 03/18/17 07:20 03/18/17 07:20 Lab Results 03/18/17 08:02: POC Glucose (mg/dL) 164 H 03/18/17 07:20: Hemoglobin A1c 7.9 H D 03/18/17 07:20: TSH 3rd Generation 1.36 03/18/17 07:20: Sodium 143, Potassium 3.9, Chloride 105, Carbon Dioxide 29, Anion Gap 13, BUN 13, Creatinine 0.8, Est GFR ( Amer) > 60, Est GFR (Non- Af Amer) > 60, Random Glucose 193 H, Calcium 9.9, Total Bilirubin 1.0, AST 42 H D, ALT 41, Alkaline Phosphatase 101, Total Protein 7.9, Albumin 4.3, Globulin 3.6, Albumin/Globulin Ratio 1.2 03/18/17 07:20: WBC 7.7, RBC 5.28, Hgb 16.4 H, Hct 48.7 H, MCV 92.2, MCH 31.1, MCHC 33.7, RDW 13.9, Plt Count 199, MPV 12.0 H 03/17/17 21:52: POC Glucose (mg/dL) 150 H 03/17/17 06:45: TSH 3rd Generation 0.45 L 03/17/17 06:45: Fasting Glucose 165 H, Triglycerides 469 H, Cholesterol 306 H, LDL Cholesterol Direct 182 H, HDL Cholesterol 42 03/16/17 21:30: POC Glucose (mg/dL) 163 H 03/15/17 18:37: WBC 6.6 D, RBC 4.82, Hgb 15.0, Hct 44.0, MCV 91.3, MCH 31.1, MCHC 34.1, RDW 13.8, Plt Count 210, MPV 11.9 H, Gran % 55.6, Lymph % (Auto) 34.2 , [place] % (Auto) 7.4 H, Eos % (Auto) 2.6, Baso % (Auto) 0.2, Gran # 3.66, Lymph # 2.3, [place] # 0.5, Eos # 0.2, Baso # 0.01 03/15/17 18:37: Alcohol, Quantitative < 10 03/15/17 18:37: Salicylates < 1 L, Acetaminophen < 10.0 L 03/15/17 18:37: Sodium 141, Potassium 3.3 L, Chloride 104, Carbon Dioxide 29, Anion Gap 11, BUN 11, Creatinine 0.7, Est GFR ( Amer) > 60, Est GFR (Non- Af Amer) > 60, Random Glucose 224 H, Calcium 9.4, Magnesium 1.8, Total Bilirubin 0.6, AST 33, ALT 52, Alkaline Phosphatase 97, Total Protein 7.4, Albumin 4.1, Globulin 3.3, Albumin/Globulin Ratio 1.3 Vital Signs Temp Pulse Resp BP Pulse Ox 03/18/17 08:51 89 141/96 H 03/18/17 07:00 97.6 F 89 16 141/96 H 03/18/17 06:38 97.6 F 89 16 141/96 H 03/17/17 15:43 88 160/109 H 03/16/17 21:53 20 03/16/17 18:04 100 H 20 158/104 H 95 03/16/17 12:20 91 H 19 117/69 95 03/16/17 11:10 101 H 174/104 H 03/16/17 09:51 187/101 H 03/16/17 09:41 80 19 97 03/16/17 06:34 92 H 18 142/94 H 96 03/16/17 03:03 98 H 17 139/98 H 95 03/15/17 23:49 86 158/86 H 03/15/17 21:00 88 18 162/8 H 99 03/15/17 19:18 98.2 F 115 H 18 185/119 H 98 pt was seen by medical team pt is on abx for bronchitis pt was confused today, CBC and CMP wnl Diagnostic Results: 03/18/17 07:20 03/18/17 07:20 Lab Results 03/19/17 11:57: POC Glucose (mg/dL) 158 H 03/19/17 08:07: POC Glucose (mg/dL) 138 H 03/18/17 21:40: POC Glucose (mg/dL) 151 H 03/18/17 16:15: POC Glucose (mg/dL) 161 H 03/18/17 08:02: POC Glucose (mg/dL) 164 H 03/18/17 07:20: Hemoglobin A1c 7.9 H D 03/18/17 07:20: TSH 3rd Generation 1.36 03/18/17 07:20: Sodium 143, Potassium 3.9, Chloride 105, Carbon Dioxide 29, Anion Gap 13, BUN 13, Creatinine 0.8, Est GFR ( Amer) > 60, Est GFR (Non- Af Amer) > 60, Random Glucose 193 H, Calcium 9.9, Total Bilirubin 1.0, AST 42 H D, ALT 41, Alkaline Phosphatase 101, Total Protein 7.9, Albumin 4.3, Globulin 3.6, Albumin/Globulin Ratio 1.2 03/18/17 07:20: WBC 7.7, RBC 5.28, Hgb 16.4 H, Hct 48.7 H, MCV 92.2, MCH 31.1, MCHC 33.7, RDW 13.9, Plt Count 199, MPV 12.0 H 03/17/17 21:52: POC Glucose (mg/dL) 150 H 03/17/17 06:45: TSH 3rd Generation 0.45 L 03/17/17 06:45: Fasting Glucose 165 H, Triglycerides 469 H, Cholesterol 306 H, LDL Cholesterol Direct 182 H, HDL Cholesterol 42 03/16/17 21:30: POC Glucose (mg/dL) 163 H 03/15/17 18:37: WBC 6.6 D, RBC 4.82, Hgb 15.0, Hct 44.0, MCV 91.3, MCH 31.1, MCHC 34.1, RDW 13.8, Plt Count 210, MPV 11.9 H, Gran % 55.6, Lymph % (Auto) 34.2 , [place] % (Auto) 7.4 H, Eos % (Auto) 2.6, Baso % (Auto) 0.2, Gran # 3.66, Lymph # 2.3, [place] # 0.5, Eos # 0.2, Baso # 0.01 03/15/17 18:37: Alcohol, Quantitative < 10 03/15/17 18:37: Salicylates < 1 L, Acetaminophen < 10.0 L 03/15/17 18:37: Sodium 141, Potassium 3.3 L, Chloride 104, Carbon Dioxide 29, Anion Gap 11, BUN 11, Creatinine 0.7, Est GFR ( Amer) > 60, Est GFR (Non- Af Amer) > 60, Random Glucose 224 H, Calcium 9.4, Magnesium 1.8, Total Bilirubin 0.6, AST 33, ALT 52, Alkaline Phosphatase 97, Total Protein 7.4, Albumin 4.1, Globulin 3.3, Albumin/Globulin Ratio 1.3 Vital Signs Temp Pulse Resp BP Pulse Ox 03/19/17 07:00 144/103 H 03/19/17 06:57 98.7 F 91 H 16 144/103 H 03/18/17 16:00 108 H 128/81 03/18/17 08:51 89 141/96 H 03/18/17 07:00 97.6 F 89 16 141/96 H 03/18/17 06:38 97.6 F 89 16 141/96 H 03/17/17 15:43 88 160/109 H 03/16/17 21:53 20 03/16/17 18:04 100 H 20 158/104 H 95 03/16/17 12:20 91 H 19 117/69 95 03/16/17 11:10 101 H 174/104 H 03/16/17 09:51 187/101 H 03/16/17 09:41 80 19 97 03/16/17 06:34 92 H 18 142/94 H 96 03/16/17 03:03 98 H 17 139/98 H 95 03/15/17 23:49 86 158/86 H 03/15/17 21:00 88 18 162/8 H 99 03/15/17 19:18 98.2 F 115 H 18 185/119 H 98 Laboratory Results - last 24 hr 03/22/17 03/22/17 03/23/17 17:03 21:26 07:24 WBC RBC Hgb Hct MCV MCH MCHC RDW Plt Count MPV Gran % Lymph % (Auto) [place] % (Auto) Eos % (Auto) Baso % (Auto) Gran # Lymph # [place] # Eos # Baso # Sodium Potassium Chloride Carbon Dioxide Anion Gap BUN Creatinine Est GFR ( Amer) Est GFR (Non-Af Amer) POC Glucose (mg/dL) 174 H 141 H 126 H Random Glucose Calcium Total Bilirubin AST ALT Alkaline Phosphatase Total Protein Albumin Globulin Albumin/Globulin Ratio 03/23/17 03/23/17 03/23/17 09:00 09:00 11:12 WBC 7.3 RBC 4.61 Hgb 14.2 D Hct 42.7 MCV 92.6 MCH 30.8 MCHC 33.3 RDW 13.5 Plt Count 234 MPV 11.8 H Gran % 78.0 H Lymph % (Auto) 15.6 L [place] % (Auto) 5.6 Eos % (Auto) 0.5 L Baso % (Auto) 0.3 Gran # 5.68 Lymph # 1.1 L [place] # 0.4 Eos # 0.0 Baso # 0.02 Sodium 140 Potassium 4.1 Chloride 102 Carbon Dioxide 27 Anion Gap 14 BUN 20 Creatinine 0.7 Est GFR ( Amer) > 60 Est GFR (Non-Af Amer) > 60 POC Glucose (mg/dL) 189 H Random Glucose 190 H Calcium 9.9 Total Bilirubin 0.8 AST 28 ALT 38 Alkaline Phosphatase 67 Total Protein 7.0 Albumin 4.3 Globulin 2.7 Albumin/Globulin Ratio 1.6 DSM 5 Symptoms Update: Pt is a 61 y/o (correction to my previous notes) female reported h/o schizophrenia, not known h/o suicidal attempts, pt was brought in to the hospital for evaluation of disorganized, agitated, paranoid behavior, pt was paranoid and delusional that about 50 women in her apartment having sex with each other, pt also was paranoid that her boyfriend (correction to my previous note) is cheating on her. pt was agitated in ED, needed to be medicated with IM ativan+geodon+haldol, pt required further evaluation and stabilization, pt was admitted under voluntary status. pt was seen and examined today at the morning time at the treatment team meeting room, pt is confused, disorganized, but calm, as per staff was wondering in the unit, no meaningful conversation is possible. when this wrier asked about her court hearing (she reported it last week), pt said "yes I saw a computer programming supervisor, that lady", pt was confused. MSE: patient presented To be more alert, pleasant, corporative, personal hygiene is improving, fare ADLs, good eye contact, speech was overproductive, patient described "I saw a computer programming supervisor", thought process is disorganized, thought content patient said that prior to come to the hospital she was seeing " children playing on my bed, I saw a lot of stuff", denied paranoid ideation, patient denied thoughts of harming herself or others, denied intent or plan, insight and judgment are limited, impulses are unpredictable. Impression: r/o schzophrenia r/o delirium (improving) Plan: Milieu/structure/supportive therapy Medical consult appreciated, see medical team note for more detailed info SW consultation for discharge plan and social issues Med management risperdal 2mg po amhs for psychosis pt was on invega sustenna 165mg IM q4 weeks (confirmed by SW), pt missed her shot on March 10, will give a shot today, this real estate underwriter called in to [facility] pharmacy and it was delivered today, next dose should be given 04/07/17 ativan reasumed ambien 10mg po hs prn cymbalta 60mg po daily for depression all meds were resumed by Dr.Levine spangler started for bronchitis Family involvement Follow up on labs Will monitor closely SW evaluation for d/c planning Pt was educated about risk/benefits and alternatives of medications, coping strategies (safety plan, suicide prevention), relapse prevention, importance of follow up with psychiatrist and therapist, stay away from drugs/alcohol/smoking Medication Change: Yes (invega sustenna was given today) Medical Record Reviewed: Yes Consults ordered or reviewed: medical consult appreciated Mental Status Examination - Cognitive Function Orientation: Person, Place Memory: Impaired Attention: Poor Concentration: Poor Association: Loose - Mood Mood: Other ( "okay".) - Affect Affect: Flat - Speech Speech: Stammering (mild, hesitant responses) - Formal Thought Process Formal Thought Process: Delusions, Paranoia, Loosening of associations - Suicidal Ideation Suicidal Ideation: No - Homicidal Ideation Homicidal Ideation: No Goal/Treatment Plan - Goal/Treatment Plan Need for Continued Stay: Remain at risks for inpatient hospitalization, Severe depression anxiety, Discharge may exacerbated symptoms, Severe functional impairment Estimated Date of D/C: 03/25/17
[2017-03-23 16:38] LABS: URINE BILIRUBIN NEGATIVE (NEGATIVE); URINE BLOOD NEGATIVE (NEGATIVE); URINE GLUCOSE (UA) NEGATIVE (NEGATIVE); URINE KETONE TRACE mg/dL (NEGATIVE); URINE LEUKOCYTE ESTERASE NEGATIVE Leu/uL (NEGATIVE); URINE PROTEIN NEGATIVE mg/dL (<30 mg/dL); URINE UROBILINOGEN 0.2 E.U./dL (<1 E.U./dL)
[2017-03-23 16:39] LABS: URINE APPEARANCE CLEAR (CLEAR); URINE COLOR DARK YELLOW (YELLOW)
[2017-03-24] MEDS: Insulin Reg-MEDIUM-Coverage SC SCH ×4 (08:47→21:27)
[2017-03-24] MEDS: Levothyroxine 25 MCG TAB PO SCH (08:50)
[2017-03-24] MEDS: Pantoprazole 40 mg EC Tab PO SCH (08:56)
--- NOTE | 2017-03-24 09:03 | PN ---
DATE: SUBJECTIVE: I saw her resting comfortably in her room at psychiatric floor. She is comfortable. She tells me she is going home today. She is participating. She is feeling better. She is on Ambien, Ativan, Cogentin, Cozaar, Cymbalta, Ecotrin, Geodon, Glucophage, insulin, Lopressor, Maalox, Microzide, milk of magnesia, NicoDerm, Norvasc, Protonix, Risperdal, Synthroid, TriCor, Tylenol, and Vistaril. PHYSICAL EXAMINATION: VITAL SIGNS: 97.6 temperature, 95 pulse, 176/78 blood pressure, and 16 respiratory rate. HEENT: Head is atraumatic and normocephalic. Throat is moist. HEART: Regular rate. LUNGS: Clear to auscultation. ABDOMEN: Soft, obese, and nontender. EXTREMITIES: No edema. PLAN: She is being seen by Psychiatry and Neurology. Overall, I think she is improving. Once the Psychiatry has to say better as far as discharging, she tells me she is going home. She is here for diabetes, schizophrenia, bronchitis, and hypertension. She is a smoker. We discussed not smoking anymore, high lipids, and GERD. We will follow. Avelino Antoine DO
--- NOTE | 2017-03-24 16:18 | PCM.PYCHPN ---
Psychiatric Progress Note - Psychiatric Progress Note Patient seen today, length of contact: 30min Patient Chief Complaint: "let your staff know that I am upset with them because they are talking about me , could you stop tapping on the table, and shake your leg?, I know where I am now, I am in the middle [facility]" Medical Problems: 03/18/17 07:20 03/18/17 07:20 Lab Results 03/18/17 08:02: POC Glucose (mg/dL) 164 H 03/18/17 07:20: Hemoglobin A1c 7.9 H D 03/18/17 07:20: TSH 3rd Generation 1.36 03/18/17 07:20: Sodium 143, Potassium 3.9, Chloride 105, Carbon Dioxide 29, Anion Gap 13, BUN 13, Creatinine 0.8, Est GFR ( Amer) > 60, Est GFR (Non- Af Amer) > 60, Random Glucose 193 H, Calcium 9.9, Total Bilirubin 1.0, AST 42 H D, ALT 41, Alkaline Phosphatase 101, Total Protein 7.9, Albumin 4.3, Globulin 3.6, Albumin/Globulin Ratio 1.2 03/18/17 07:20: WBC 7.7, RBC 5.28, Hgb 16.4 H, Hct 48.7 H, MCV 92.2, MCH 31.1, MCHC 33.7, RDW 13.9, Plt Count 199, MPV 12.0 H 03/17/17 21:52: POC Glucose (mg/dL) 150 H 03/17/17 06:45: TSH 3rd Generation 0.45 L 03/17/17 06:45: Fasting Glucose 165 H, Triglycerides 469 H, Cholesterol 306 H, LDL Cholesterol Direct 182 H, HDL Cholesterol 42 03/16/17 21:30: POC Glucose (mg/dL) 163 H 03/15/17 18:37: WBC 6.6 D, RBC 4.82, Hgb 15.0, Hct 44.0, MCV 91.3, MCH 31.1, MCHC 34.1, RDW 13.8, Plt Count 210, MPV 11.9 H, Gran % 55.6, Lymph % (Auto) 34.2 , [place] % (Auto) 7.4 H, Eos % (Auto) 2.6, Baso % (Auto) 0.2, Gran # 3.66, Lymph # 2.3, [place] # 0.5, Eos # 0.2, Baso # 0.01 03/15/17 18:37: Alcohol, Quantitative < 10 03/15/17 18:37: Salicylates < 1 L, Acetaminophen < 10.0 L 03/15/17 18:37: Sodium 141, Potassium 3.3 L, Chloride 104, Carbon Dioxide 29, Anion Gap 11, BUN 11, Creatinine 0.7, Est GFR ( Amer) > 60, Est GFR (Non- Af Amer) > 60, Random Glucose 224 H, Calcium 9.4, Magnesium 1.8, Total Bilirubin 0.6, AST 33, ALT 52, Alkaline Phosphatase 97, Total Protein 7.4, Albumin 4.1, Globulin 3.3, Albumin/Globulin Ratio 1.3 Vital Signs Temp Pulse Resp BP Pulse Ox 03/18/17 08:51 89 141/96 H 03/18/17 07:00 97.6 F 89 16 141/96 H 03/18/17 06:38 97.6 F 89 16 141/96 H 03/17/17 15:43 88 160/109 H 03/16/17 21:53 20 03/16/17 18:04 100 H 20 158/104 H 95 03/16/17 12:20 91 H 19 117/69 95 03/16/17 11:10 101 H 174/104 H 03/16/17 09:51 187/101 H 03/16/17 09:41 80 19 97 03/16/17 06:34 92 H 18 142/94 H 96 03/16/17 03:03 98 H 17 139/98 H 95 03/15/17 23:49 86 158/86 H 03/15/17 21:00 88 18 162/8 H 99 03/15/17 19:18 98.2 F 115 H 18 185/119 H 98 pt was seen by medical team pt is on abx for bronchitis pt was confused today, CBC and CMP wnl Laboratory Results - last 24 hr 03/23/17 03/23/17 03/23/17 16:27 16:27 16:30 POC Glucose (mg/dL) 134 H Urine Color Dark yellow Urine Appearance Clear Urine pH 6.0 Ur Specific [place] 1.015 Urine Protein Negative Urine Glucose (UA) Negative Urine Ketones Trace H Urine Blood Negative Urine Nitrate Negative Urine Bilirubin Negative Urine Urobilinogen 0.2 Ur Leukocyte Esterase Negative Urine Opiates Screen Negative Urine Methadone Screen Negative Ur Barbiturates Screen Negative Ur Phencyclidine Scrn Negative Ur Amphetamines Screen Negative U Benzodiazepines Scrn Negative U Oth Cocaine Metabols Negative U Cannabinoids Screen Negative 03/23/17 03/24/17 03/24/17 21:51 07:45 11:45 POC Glucose (mg/dL) 163 H 183 H 205 H Urine Color Urine Appearance Urine pH Ur Specific [place] Urine Protein Urine Glucose (UA) Urine Ketones Urine Blood Urine Nitrate Urine Bilirubin Urine Urobilinogen Ur Leukocyte Esterase Urine Opiates Screen Urine Methadone Screen Ur Barbiturates Screen Ur Phencyclidine Scrn Ur Amphetamines Screen U Benzodiazepines Scrn U Oth Cocaine Metabols U Cannabinoids Screen Diagnostic Results: 03/18/17 07:20 03/18/17 07:20 Lab Results 03/19/17 11:57: POC Glucose (mg/dL) 158 H 03/19/17 08:07: POC Glucose (mg/dL) 138 H 03/18/17 21:40: POC Glucose (mg/dL) 151 H 03/18/17 16:15: POC Glucose (mg/dL) 161 H 03/18/17 08:02: POC Glucose (mg/dL) 164 H 03/18/17 07:20: Hemoglobin A1c 7.9 H D 03/18/17 07:20: TSH 3rd Generation 1.36 03/18/17 07:20: Sodium 143, Potassium 3.9, Chloride 105, Carbon Dioxide 29, Anion Gap 13, BUN 13, Creatinine 0.8, Est GFR ( Amer) > 60, Est GFR (Non- Af Amer) > 60, Random Glucose 193 H, Calcium 9.9, Total Bilirubin 1.0, AST 42 H D, ALT 41, Alkaline Phosphatase 101, Total Protein 7.9, Albumin 4.3, Globulin 3.6, Albumin/Globulin Ratio 1.2 03/18/17 07:20: WBC 7.7, RBC 5.28, Hgb 16.4 H, Hct 48.7 H, MCV 92.2, MCH 31.1, MCHC 33.7, RDW 13.9, Plt Count 199, MPV 12.0 H 03/17/17 21:52: POC Glucose (mg/dL) 150 H 03/17/17 06:45: TSH 3rd Generation 0.45 L 03/17/17 06:45: Fasting Glucose 165 H, Triglycerides 469 H, Cholesterol 306 H, LDL Cholesterol Direct 182 H, HDL Cholesterol 42 03/16/17 21:30: POC Glucose (mg/dL) 163 H 03/15/17 18:37: WBC 6.6 D, RBC 4.82, Hgb 15.0, Hct 44.0, MCV 91.3, MCH 31.1, MCHC 34.1, RDW 13.8, Plt Count 210, MPV 11.9 H, Gran % 55.6, Lymph % (Auto) 34.2 , [place] % (Auto) 7.4 H, Eos % (Auto) 2.6, Baso % (Auto) 0.2, Gran # 3.66, Lymph # 2.3, [place] # 0.5, Eos # 0.2, Baso # 0.01 03/15/17 18:37: Alcohol, Quantitative < 10 03/15/17 18:37: Salicylates < 1 L, Acetaminophen < 10.0 L 03/15/17 18:37: Sodium 141, Potassium 3.3 L, Chloride 104, Carbon Dioxide 29, Anion Gap 11, BUN 11, Creatinine 0.7, Est GFR ( Amer) > 60, Est GFR (Non- Af Amer) > 60, Random Glucose 224 H, Calcium 9.4, Magnesium 1.8, Total Bilirubin 0.6, AST 33, ALT 52, Alkaline Phosphatase 97, Total Protein 7.4, Albumin 4.1, Globulin 3.3, Albumin/Globulin Ratio 1.3 Vital Signs Temp Pulse Resp BP Pulse Ox 03/19/17 07:00 144/103 H 03/19/17 06:57 98.7 F 91 H 16 144/103 H 03/18/17 16:00 108 H 128/81 03/18/17 08:51 89 141/96 H 03/18/17 07:00 97.6 F 89 16 141/96 H 03/18/17 06:38 97.6 F 89 16 141/96 H 03/17/17 15:43 88 160/109 H 03/16/17 21:53 20 03/16/17 18:04 100 H 20 158/104 H 95 03/16/17 12:20 91 H 19 117/69 95 03/16/17 11:10 101 H 174/104 H 03/16/17 09:51 187/101 H 03/16/17 09:41 80 19 97 03/16/17 06:34 92 H 18 142/94 H 96 03/16/17 03:03 98 H 17 139/98 H 95 03/15/17 23:49 86 158/86 H 03/15/17 21:00 88 18 162/8 H 99 03/15/17 19:18 98.2 F 115 H 18 185/119 H 98 Laboratory Results - last 24 hr 03/22/17 03/22/17 03/23/17 17:03 21:26 07:24 WBC RBC Hgb Hct MCV MCH MCHC RDW Plt Count MPV Gran % Lymph % (Auto) [place] % (Auto) Eos % (Auto) Baso % (Auto) Gran # Lymph # [place] # Eos # Baso # Sodium Potassium Chloride Carbon Dioxide Anion Gap BUN Creatinine Est GFR ( Amer) Est GFR (Non-Af Amer) POC Glucose (mg/dL) 174 H 141 H 126 H Random Glucose Calcium Total Bilirubin AST ALT Alkaline Phosphatase Total Protein Albumin Globulin Albumin/Globulin Ratio 03/23/17 03/23/17 03/23/17 09:00 09:00 11:12 WBC 7.3 RBC 4.61 Hgb 14.2 D Hct 42.7 MCV 92.6 MCH 30.8 MCHC 33.3 RDW 13.5 Plt Count 234 MPV 11.8 H Gran % 78.0 H Lymph % (Auto) 15.6 L [place] % (Auto) 5.6 Eos % (Auto) 0.5 L Baso % (Auto) 0.3 Gran # 5.68 Lymph # 1.1 L [place] # 0.4 Eos # 0.0 Baso # 0.02 Sodium 140 Potassium 4.1 Chloride 102 Carbon Dioxide 27 Anion Gap 14 BUN 20 Creatinine 0.7 Est GFR ( Amer) > 60 Est GFR (Non-Af Amer) > 60 POC Glucose (mg/dL) 189 H Random Glucose 190 H Calcium 9.9 Total Bilirubin 0.8 AST 28 ALT 38 Alkaline Phosphatase 67 Total Protein 7.0 Albumin 4.3 Globulin 2.7 Albumin/Globulin Ratio 1.6 DSM 5 Symptoms Update: Pt is a 61 y/o (correction to my previous notes) female reported h/o schizophrenia, not known h/o suicidal attempts, pt was brought in to the hospital for evaluation of disorganized, agitated, paranoid behavior, pt was paranoid and delusional that about 50 women in her apartment having sex with each other, pt also was paranoid that her boyfriend (correction to my previous note) is cheating on her. pt was agitated in ED, needed to be medicated with IM ativan+geodon+haldol, pt required further evaluation and stabilization, pt was admitted under voluntary status. pt was seen and examined today at the morning time at the treatment team meeting room, pt is confused, disorganized, and psychotic, "let your staff know that I am upset with them because they are talking about me, could you stop tapping on the table, and shake your leg?" nobody was tapping on the table and nobody was shaking legs, pt is psychotic and disorganized. MSE: patient presented To be more alert, pleasant, corporative, personal hygiene is improving, fare ADLs, good eye contact, speech was overproductive, patient described "did you see a lady just fell" (nobody fell, pt is psychotic) , thought process is disorganized, thought content patient said that prior to come to the hospital she was seeing "children playing on my bed, I saw a lot of stuff", denied paranoid ideation, patient denied thoughts of harming herself or others, denied intent or plan, insight and judgment are limited, impulses are unpredictable. Impression: r/o schzophrenia r/o delirium (improving) Plan: Milieu/structure/supportive therapy Medical consult appreciated, see medical team note for more detailed info SW consultation for discharge plan and social issues Med management risperdal d.c thorazine started po tid 50mg po vistaril d/c pt was on invega sustenna 165mg IM q4 weeks (confirmed by MICHI), pt missed her shot on March 10, last dose was 03/23/17 next dose should be given 04/07/17 ativan 1mg po tid ambien 10mg po hs prn cymbalta 60mg po daily for depression all meds were resumed by Dr.Levine spangler started for bronchitis Family involvement Follow up on labs Will monitor closely SW evaluation for d/c planning Pt was educated about risk/benefits and alternatives of medications, coping strategies (safety plan, suicide prevention), relapse prevention, importance of follow up with psychiatrist and therapist, stay away from drugs/alcohol/smoking Medication Change: Yes (d/c risperdal, d/c vistaril, thorazine started) Medical Record Reviewed: Yes Mental Status Examination - Cognitive Function Orientation: Person, Place Memory: Impaired Attention: Poor Concentration: Poor Association: Loose - Mood Mood: Other ( "okay".) - Affect Affect: Flat - Speech Speech: Stammering (mild, hesitant responses) - Formal Thought Process Formal Thought Process: Delusions, Paranoia, Loosening of associations - Suicidal Ideation Suicidal Ideation: No - Homicidal Ideation Homicidal Ideation: No Goal/Treatment Plan - Goal/Treatment Plan Need for Continued Stay: Remain at risks for inpatient hospitalization, Severe depression anxiety, Discharge may exacerbated symptoms, Severe functional impairment Estimated Date of D/C: 03/25/17
--- NOTE | 2017-03-24 23:12 | CARD ---
APPROVED REPORT EKG Measurement Heart [id number] <Conclusion> Normal sinus rhythm Possible Left atrial enlargement Left ventricular hypertrophy T wave abnormality, consider lateral ischemia Abnormal ECG
[2017-03-25] MEDS ORDERED: DiphenhydrAMINE 50 mg/ml Inj IM STA (00:27)
--- NOTE | 2017-03-25 00:28 | CP.PCM.PN ---
Subjective - Date & Time of Evaluation Date of Evaluation: 03/25/17 Time of Evaluation: 00:26 - Subjective Subjective: Patient was seen because she was agitated. Earlier , I had ordered beneadryl 50 mg IM because she was agitated. She is standing in the door of seclusion room. Not getting back to bed . Medical record was reviewed. She was admitted for having visual hallucinations for about a week. Has PMH of CHF, HTN, COPD, hypothyroidism, HLD, DM, anxiety , bipolar disorder , anxiety, cardiac cath, back surgery, b/l ankle reconstruction. Objective - Vital Signs/Intake and Output Vital Signs (last 24 hours): Temp Pulse Resp BP Pulse Ox 97.6 F 89 16 154/73 H 93 L 03/24/17 07:02 03/24/17 17:11 03/24/17 07:02 03/24/17 17:11 03/20/17 06:52 - Medications Medications: Current Medications Acetaminophen (Tylenol 325mg Tab) 650 mg PO Q4H PRN PRN Reason: Pain, Mild (1-3) Last Admin: 03/17/17 09:21 Dose: 650 mg Al Hydrox/Mg Hydrox/Simethicone (Maalox Plus 30 Ml) 30 ml PO DAILY PRN PRN Reason: Upset Stomach Amlodipine Besylate (Norvasc) 10 mg PO DAILY [facility] Last Admin: 03/24/17 08:51 Dose: 10 mg Aspirin (Ecotrin) 81 mg PO DAILY [facility] Last Admin: 03/24/17 08:51 Dose: 81 mg Benztropine Mesylate (Cogentin) 1 mg PO AMHS [facility] Last Admin: 03/24/17 21:15 Dose: 1 mg Chlorpromazine (Thorazine) 50 mg PO AMHS [facility] PRN Reason: Protocol Last Admin: 03/24/17 21:15 Dose: 50 mg Chlorpromazine (Thorazine) 50 mg PO 1600 [facility] PRN Reason: Protocol Chlorpromazine (Thorazine) 25 mg IM Q8H PRN; Protocol PRN Reason: agitation/psychosis Last Admin: 03/24/17 20:36 Dose: 25 mg Duloxetine HCl (Cymbalta) 60 mg PO DAILY [facility] Last Admin: 03/24/17 08:50 Dose: 60 mg Fenofibrate (Tricor) 145 mg PO DAILY [facility] Last Admin: 03/24/17 08:49 Dose: 145 mg Hydrochlorothiazide (Microzide) 12.5 mg PO DAILY [facility] Last Admin: 03/24/17 08:49 Dose: 12.5 mg Insulin Human Regular (Humulin R Med) 0 units SC ACHS [facility] PRN Reason: Protocol Last Admin: 03/24/17 21:27 Dose: Not Given Levothyroxine Sodium (Synthroid) 25 mcg PO ACB [facility] Last Admin: 03/24/17 08:50 Dose: 25 mcg Lorazepam (Ativan) 1 mg PO TID [facility] PRN Reason: Protocol Last Admin: 03/24/17 17:13 Dose: 1 mg Losartan Potassium (Cozaar) 100 mg PO DAILY [facility] Last Admin: 03/24/17 08:49 Dose: 100 mg Magnesium Hydroxide (Milk Of Magnesia) 30 ml PO DAILY PRN PRN Reason: Constipation Metformin HCl (Glucophage) 500 mg PO BID [facility] Last Admin: 03/24/17 17:13 Dose: 500 mg Metoprolol Tartrate (Lopressor) 12.5 mg PO BRKDIN [facility] Last Admin: 03/24/17 17:11 Dose: 12.5 mg Nicotine (Nicoderm Cq) 1 patch TD DAILY [facility] Last Admin: 03/24/17 08:52 Dose: 1 patch Pantoprazole Sodium (Protonix Ec Tab) 40 mg PO ACB [facility] Last Admin: 03/24/17 08:56 Dose: 40 mg Zolpidem Tartrate (Ambien) 10 mg PO HS PRN; Protocol PRN Reason: Insomnia Last Admin: 03/24/17 21:14 Dose: 10 mg - Labs Labs: 03/23/17 09:00 03/23/17 09:00 Last Vital Signs Temp 97.6 F 03/24/17 07:02 Pulse 89 03/24/17 17:11 Resp 16 03/24/17 07:02 BP 154/73 H 03/24/17 17:11 Pulse Ox 93 L 03/20/17 06:52 Most Recent Lab Values WBC 7.3 10^3/ul (4.5-11.0) 03/23/17 09:00 RBC 4.61 10^6/uL (3.5-6.1) 03/23/17 09:00 Hgb 14.2 g/dL (12.0-16.0) D 03/23/17 09:00 Hct 42.7 % (36.0-48.0) 03/23/17 09:00 MCV 92.6 fl (80.0-105.0) 03/23/17 09:00 MCH 30.8 pg (25.0-35.0) 03/23/17 09:00 MCHC 33.3 g/dl (31.0-37.0) 03/23/17 09:00 RDW 13.5 % (11.5-14.5) 03/23/17 09:00 Plt Count 234 10^3/uL (120.0-450.0) 03/23/17 09:00 MPV 11.8 fl (7.0-11.0) H 03/23/17 09:00 Gran % 78.0 % (50.0-68.0) H 03/23/17 09:00 Lymph % (Auto) 15.6 % (22.0-35.0) L 03/23/17 09:00 [place] % (Auto) 5.6 % (1.0-6.0) 03/23/17 09:00 Eos % (Auto) 0.5 % (1.5-5.0) L 03/23/17 09:00 Baso % (Auto) 0.3 % (0.0-3.0) 03/23/17 09:00 Gran # 5.68 (1.4-6.5) 03/23/17 09:00 Lymph # 1.1 (1.2-3.4) L 03/23/17 09:00 [place] # 0.4 (0.1-0.6) 03/23/17 09:00 Eos # 0.0 (0.0-0.7) 03/23/17 09:00 Baso # 0.02 K/mm3 (0.0-2.0) 03/23/17 09:00 Sodium 140 mmol/L (132-148) 03/23/17 09:00 Potassium 4.1 mmol/L (3.6-5.0) 03/23/17 09:00 Chloride 102 mmol/L (98-107) 03/23/17 09:00 Carbon Dioxide 27 mmol/L (21-33) 03/23/17 09:00 Anion Gap 14 (10-20) 03/23/17 09:00 BUN 20 mg/dL (7-21) 03/23/17 09:00 Creatinine 0.7 mg/dl (0.7-1.2) 03/23/17 09:00 Est GFR ( Amer) > 60 03/23/17 09:00 Est GFR (Non-Af Amer) > 60 03/23/17 09:00 POC Glucose (mg/dL) 174 mg/dL (65-110) H 03/24/17 21:22 Random Glucose 190 mg/dL (70-110) H 03/23/17 09:00 Fasting Glucose 165 mg/dL (65-110) H 03/17/17 06:45 Hemoglobin A1c 7.9 % (4.2-6.5) H D 03/18/17 07:20 Calcium 9.9 mg/dL (8.4-10.5) 03/23/17 09:00 Magnesium 1.8 mg/dL (1.7-2.2) 03/15/17 18:37 Total Bilirubin 0.8 mg/dL (0.2-1.3) 03/23/17 09:00 AST 28 U/L (14-36) 03/23/17 09:00 ALT 38 U/L (7-56) 03/23/17 09:00 Alkaline Phosphatase 67 U/L (38-126) 03/23/17 09:00 Total Protein 7.0 g/dL (5.8-8.3) 03/23/17 09:00 Albumin 4.3 g/dL (3.0-4.8) 03/23/17 09:00 Globulin 2.7 gm/dL 03/23/17 09:00 Albumin/Globulin Ratio 1.6 (1.1-1.8) 03/23/17 09:00 Triglycerides 469 mg/dL (35-160) H 03/17/17 06:45 Cholesterol 306 mg/dL (130-200) H 03/17/17 06:45 LDL Cholesterol Direct 182 mg/dL (0-129) H 03/17/17 06:45 HDL Cholesterol 42 mg/dL (29-60) 03/17/17 06:45 TSH 3rd Generation 1.36 mIU/mL (0.46-4.68) 03/18/17 07:20 Urine Color Dark yellow (YELLOW) 03/23/17 16:27 Urine Appearance Clear (CLEAR) 03/23/17 16:27 Urine pH 6.0 (4.7-8.0) 03/23/17 16:27 Ur Specific [place] 1.015 (1.005-1.035) 03/23/17 16:27 Urine Protein Negative mg/dL (<30 mg/dL) 03/23/17 16:27 Urine Glucose (UA) Negative mg/dL (NEGATIVE) 03/23/17 16:27 Urine Ketones Trace mg/dL (NEGATIVE) H 03/23/17 16:27 Urine Blood Negative (NEGATIVE) 03/23/17 16:27 Urine Nitrate Negative (NEGATIVE) 03/23/17 16:27 Urine Bilirubin Negative (NEGATIVE) 03/23/17 16:27 Urine Urobilinogen 0.2 E.U./dL (<1 E.U./dL) 03/23/17 16:27 Ur Leukocyte Esterase Negative Deirdre/uL (NEGATIVE) 03/23/17 16:27 Salicylates < 1 mg/dL (2.0-20.0) L 03/15/17 18:37 Urine Opiates Screen Negative (NEGATIVE) 03/23/17 16:27 Urine Methadone Screen Negative (NEGATIVE) 03/23/17 16:27 Acetaminophen < 10.0 ug/ml (10.0-20.0) L 03/15/17 18:37 Ur Barbiturates Screen Negative (NEGATIVE) 03/23/17 16:27 Ur Phencyclidine Scrn Negative (NEGATIVE) 03/23/17 16:27 Ur Amphetamines Screen Negative (NEGATIVE) 03/23/17 16:27 U Benzodiazepines Scrn Negative (NEGATIVE) 03/23/17 16:27 U Oth Cocaine Metabols Negative (NEGATIVE) 03/23/17 16:27 U Cannabinoids Screen Negative (NEGATIVE) 03/23/17 16:27 Alcohol, Quantitative < 10 mg/dL (0-10) 03/15/17 18:37 - Constitutional Appears: Well, No Acute Distress - Head Exam Head Exam: ATRAUMATIC, NORMAL INSPECTION, NORMOCEPHALIC - Eye Exam Eye Exam: Normal appearance - ENT Exam ENT Exam: Normal External Ear Exam - Neck Exam Neck Exam: Normal Inspection - Respiratory Exam Respiratory Exam: NORMAL BREATHING PATTERN - Cardiovascular Exam Cardiovascular Exam: absent: JVD - GI/Abdominal Exam GI & Abdominal Exam: absent: Distended - Rectal Exam Rectal Exam: Deferred - Exam Additional comments: Deferred. - Extremities Exam Extremities Exam: Normal Inspection - Back Exam Back Exam: NORMAL INSPECTION - Neurological Exam Neurological Exam: Alert, Awake, Oriented x3 - Psychiatric Exam Psychiatric exam: Normal Affect, Normal Mood - Skin Skin Exam: Normal Color Assessment and Plan - Assessment and Plan (Free Text) Assessment: Agitation. CHF. HTN. COPD. Hypothyroidism. HLD. DM. Anxiety. Depression. Plan: Benadryl 50 mg IM stat. Continue present management.
[2017-03-25] MEDS ORDERED: DiphenhydrAMINE 50 mg/ml Inj ONE (00:35)
[2017-03-25 06:09] VITALS: O2SAT 96
[2017-03-25 09:26] LABS: HEMATOCRIT 43.3 % (36.0-48.0); MEAN CELL VOLUME 91.9 fl (80.0-105.0); MEAN CORPUSCULAR HGB CONC 33.7 g/dl (31.0-37.0); MEAN PLATELET VOLUME 11.7 fl (7.0-11.0); RED CELL DISTRIBUTION WIDTH 13.5 % (11.5-14.5); WHITE BLOOD COUNT 9.5 10^3/ul (4.5-11.0)
[2017-03-25 09:51] LABS: ALB/GLOB RATIO 1.4 (1.1-1.8); ALKALINE PHOSPHATASE 79 U/L (38-126); ALT/SGPT 54 U/L (7-56); AST/SGOT 32 U/L (14-36); BILIRUBIN,TOTAL 1.1 mg/dL (0.2-1.3); BLOOD UREA NITROGEN 27 mg/dL (7-21); CALCIUM 10.4 mg/dL (8.4-10.5); CARBON DIOXIDE 27 mmol/L (21-33); CHLORIDE 102 mmol/L (98-107); GFR AFRICAN-AMERICAN > 60; GLUCOSE,RANDOM 140 mg/dL (70-110); SODIUM 141 mmol/L (132-148)
[2017-03-25] MEDS: Pantoprazole 40 mg EC Tab PO SCH (10:22)
[2017-03-25] MEDS: Levothyroxine 25 MCG TAB PO SCH (10:25)
[2017-03-25] MEDS: Insulin Reg-MEDIUM-Coverage SC SCH ×4 (10:46→21:54)
--- NOTE | 2017-03-25 10:57 | PN ---
DATE: SUBJECTIVE: I saw her in room this morning. She was not as alert and oriented as she was earlier in the day, but still okay, did not talk about leaving at all. She is on Ambien, Ativan, Cogentin, Cozaar, Cymbalta, Ecotrin, Glucophage, insulin, Lopressor, Maalox, Microzide, milk of magnesia, NicoDerm, Norvasc, Protonix, Synthroid, Thorazine, TriCor, and Tylenol. PHYSICAL EXAMINATION: VITAL SIGNS: Temperature pulse 89, 131/69 blood pressure, 20 respiratory rate, 96% O2 sat on room air. HEENT: Head is atraumatic and normocephalic. HEART: Regular rate. LUNGS: Clear to auscultation. ABDOMEN: Soft, obese. EXTREMITIES: No edema. LABORATORY DATA: Last labs on the , the CBC was good. SMA-20 was good, last blood sugar was 144. PLAN: As per Psychiatry, she was agitated at night. Her EKG showed normal sinus rhythm and left ventricular hypertrophy. She was given Benadryl. She has multiple issues of anxiety, depression, diabetes, high cholesterol, hypothyroidism, COPD, hypertension, and CHF, and we will follow as per Psychiatry. Avelino Antoine DO MTDKarthik
[2017-03-25 12:22] LABS: URINE BILIRUBIN NEGATIVE (NEGATIVE); URINE BLOOD NEGATIVE (NEGATIVE); URINE GLUCOSE (UA) NEGATIVE (NEGATIVE); URINE KETONE TRACE mg/dL (NEGATIVE); URINE LEUKOCYTE ESTERASE SMALL Leu/uL (NEGATIVE); URINE PROTEIN NEGATIVE mg/dL (<30 mg/dL); URINE UROBILINOGEN 0.2 E.U./dL (<1 E.U./dL)
[2017-03-25 12:23] LABS: URINE APPEARANCE CLEAR (CLEAR); URINE COLOR DARK YELLOW (YELLOW)
[2017-03-25 12:56] LABS: URINE BACTERIA MANY (NEG); URINE RBC 0 - 2 /hpf (0-2)
--- NOTE | 2017-03-25 16:23 | PCM.PYCHPN ---
Psychiatric Progress Note - Psychiatric Progress Note Patient seen today, length of contact: 30min Patient Chief Complaint: "I see babies in boxes" Medical Problems: 03/18/17 07:20 03/18/17 07:20 Lab Results 03/18/17 08:02: POC Glucose (mg/dL) 164 H 03/18/17 07:20: Hemoglobin A1c 7.9 H D 03/18/17 07:20: TSH 3rd Generation 1.36 03/18/17 07:20: Sodium 143, Potassium 3.9, Chloride 105, Carbon Dioxide 29, Anion Gap 13, BUN 13, Creatinine 0.8, Est GFR ( Amer) > 60, Est GFR (Non- Af Amer) > 60, Random Glucose 193 H, Calcium 9.9, Total Bilirubin 1.0, AST 42 H D, ALT 41, Alkaline Phosphatase 101, Total Protein 7.9, Albumin 4.3, Globulin 3.6, Albumin/Globulin Ratio 1.2 03/18/17 07:20: WBC 7.7, RBC 5.28, Hgb 16.4 H, Hct 48.7 H, MCV 92.2, MCH 31.1, MCHC 33.7, RDW 13.9, Plt Count 199, MPV 12.0 H 03/17/17 21:52: POC Glucose (mg/dL) 150 H 03/17/17 06:45: TSH 3rd Generation 0.45 L 03/17/17 06:45: Fasting Glucose 165 H, Triglycerides 469 H, Cholesterol 306 H, LDL Cholesterol Direct 182 H, HDL Cholesterol 42 03/16/17 21:30: POC Glucose (mg/dL) 163 H 03/15/17 18:37: WBC 6.6 D, RBC 4.82, Hgb 15.0, Hct 44.0, MCV 91.3, MCH 31.1, MCHC 34.1, RDW 13.8, Plt Count 210, MPV 11.9 H, Gran % 55.6, Lymph % (Auto) 34.2 , [place] % (Auto) 7.4 H, Eos % (Auto) 2.6, Baso % (Auto) 0.2, Gran # 3.66, Lymph # 2.3, [place] # 0.5, Eos # 0.2, Baso # 0.01 03/15/17 18:37: Alcohol, Quantitative < 10 03/15/17 18:37: Salicylates < 1 L, Acetaminophen < 10.0 L 03/15/17 18:37: Sodium 141, Potassium 3.3 L, Chloride 104, Carbon Dioxide 29, Anion Gap 11, BUN 11, Creatinine 0.7, Est GFR ( Amer) > 60, Est GFR (Non- Af Amer) > 60, Random Glucose 224 H, Calcium 9.4, Magnesium 1.8, Total Bilirubin 0.6, AST 33, ALT 52, Alkaline Phosphatase 97, Total Protein 7.4, Albumin 4.1, Globulin 3.3, Albumin/Globulin Ratio 1.3 Vital Signs Temp Pulse Resp BP Pulse Ox 03/18/17 08:51 89 141/96 H 03/18/17 07:00 97.6 F 89 16 141/96 H 03/18/17 06:38 97.6 F 89 16 141/96 H 03/17/17 15:43 88 160/109 H 03/16/17 21:53 20 03/16/17 18:04 100 H 20 158/104 H 95 03/16/17 12:20 91 H 19 117/69 95 03/16/17 11:10 101 H 174/104 H 03/16/17 09:51 187/101 H 03/16/17 09:41 80 19 97 03/16/17 06:34 92 H 18 142/94 H 96 03/16/17 03:03 98 H 17 139/98 H 95 03/15/17 23:49 86 158/86 H 03/15/17 21:00 88 18 162/8 H 99 03/15/17 19:18 98.2 F 115 H 18 185/119 H 98 pt was seen by medical team pt is on abx for bronchitis pt was confused today, CBC and CMP wnl Laboratory Results - last 24 hr 03/23/17 03/23/17 03/23/17 16:27 16:27 16:30 POC Glucose (mg/dL) 134 H Urine Color Dark yellow Urine Appearance Clear Urine pH 6.0 Ur Specific [place] 1.015 Urine Protein Negative Urine Glucose (UA) Negative Urine Ketones Trace H Urine Blood Negative Urine Nitrate Negative Urine Bilirubin Negative Urine Urobilinogen 0.2 Ur Leukocyte Esterase Negative Urine Opiates Screen Negative Urine Methadone Screen Negative Ur Barbiturates Screen Negative Ur Phencyclidine Scrn Negative Ur Amphetamines Screen Negative U Benzodiazepines Scrn Negative U Oth Cocaine Metabols Negative U Cannabinoids Screen Negative 03/23/17 03/24/17 03/24/17 21:51 07:45 11:45 POC Glucose (mg/dL) 163 H 183 H 205 H Urine Color Urine Appearance Urine pH Ur Specific [place] Urine Protein Urine Glucose (UA) Urine Ketones Urine Blood Urine Nitrate Urine Bilirubin Urine Urobilinogen Ur Leukocyte Esterase Urine Opiates Screen Urine Methadone Screen Ur Barbiturates Screen Ur Phencyclidine Scrn Ur Amphetamines Screen U Benzodiazepines Scrn U Oth Cocaine Metabols U Cannabinoids Screen Laboratory Results - last 24 hr 03/24/17 03/24/17 03/25/17 16:25 21:22 03:48 WBC RBC Hgb Hct MCV MCH MCHC RDW Plt Count MPV Sodium Potassium Chloride Carbon Dioxide Anion Gap BUN Creatinine Est GFR ( Amer) Est GFR (Non-Af Amer) POC Glucose (mg/dL) 116 H 174 H 140 H Random Glucose Calcium Total Bilirubin AST ALT Alkaline Phosphatase Total Protein Albumin Globulin Albumin/Globulin Ratio Urine Color Urine Appearance Urine pH Ur Specific [place] Urine Protein Urine Glucose (UA) Urine Ketones Urine Blood Urine Nitrate Urine Bilirubin Urine Urobilinogen Ur Leukocyte Esterase Urine RBC Urine WBC Ur Epithelial Cells Urine Bacteria 03/25/17 03/25/17 03/25/17 08:09 09:15 09:15 WBC 9.5 D RBC 4.71 Hgb 14.6 Hct 43.3 MCV 91.9 MCH 31.0 MCHC 33.7 RDW 13.5 Plt Count 247 MPV 11.7 H Sodium 141 Potassium 4.0 Chloride 102 Carbon Dioxide 27 Anion Gap 16 BUN 27 H Creatinine 0.9 Est GFR ( Amer) > 60 Est GFR (Non-Af Amer) > 60 POC Glucose (mg/dL) 144 H Random Glucose 140 H Calcium 10.4 Total Bilirubin 1.1 AST 32 ALT 54 Alkaline Phosphatase 79 Total Protein 8.0 Albumin 4.6 Globulin 3.3 Albumin/Globulin Ratio 1.4 Urine Color Urine Appearance Urine pH Ur Specific [place] Urine Protein Urine Glucose (UA) Urine Ketones Urine Blood Urine Nitrate Urine Bilirubin Urine Urobilinogen Ur Leukocyte Esterase Urine RBC Urine WBC Ur Epithelial Cells Urine Bacteria 03/25/17 03/25/17 12:00 12:06 WBC RBC Hgb Hct MCV MCH MCHC RDW Plt Count MPV Sodium Potassium Chloride Carbon Dioxide Anion Gap BUN Creatinine Est GFR ( Amer) Est GFR (Non-Af Amer) POC Glucose (mg/dL) 123 H Random Glucose Calcium Total Bilirubin AST ALT Alkaline Phosphatase Total Protein Albumin Globulin Albumin/Globulin Ratio Urine Color Dark yellow Urine Appearance Clear Urine pH 6.0 Ur Specific [place] 1.015 Urine Protein Negative Urine Glucose (UA) Negative Urine Ketones Trace H Urine Blood Negative Urine Nitrate Negative Urine Bilirubin Negative Urine Urobilinogen 0.2 Ur Leukocyte Esterase Small H Urine RBC 0 - 2 Urine WBC 5 - 10 Ur Epithelial Cells 6 - 8 Urine Bacteria Many Temp Pulse Resp BP Pulse Ox 98.0 F 110 H 20 131/69 96 03/25/17 06:08 03/25/17 10:26 03/25/17 06:08 03/25/17 10:26 03/25/17 06:08 Diagnostic Results: 03/18/17 07:20 03/18/17 07:20 Lab Results 03/19/17 11:57: POC Glucose (mg/dL) 158 H 03/19/17 08:07: POC Glucose (mg/dL) 138 H 03/18/17 21:40: POC Glucose (mg/dL) 151 H 03/18/17 16:15: POC Glucose (mg/dL) 161 H 03/18/17 08:02: POC Glucose (mg/dL) 164 H 03/18/17 07:20: Hemoglobin A1c 7.9 H D 03/18/17 07:20: TSH 3rd Generation 1.36 03/18/17 07:20: Sodium 143, Potassium 3.9, Chloride 105, Carbon Dioxide 29, Anion Gap 13, BUN 13, Creatinine 0.8, Est GFR ( Amer) > 60, Est GFR (Non- Af Amer) > 60, Random Glucose 193 H, Calcium 9.9, Total Bilirubin 1.0, AST 42 H D, ALT 41, Alkaline Phosphatase 101, Total Protein 7.9, Albumin 4.3, Globulin 3.6, Albumin/Globulin Ratio 1.2 03/18/17 07:20: WBC 7.7, RBC 5.28, Hgb 16.4 H, Hct 48.7 H, MCV 92.2, MCH 31.1, MCHC 33.7, RDW 13.9, Plt Count 199, MPV 12.0 H 03/17/17 21:52: POC Glucose (mg/dL) 150 H 03/17/17 06:45: TSH 3rd Generation 0.45 L 03/17/17 06:45: Fasting Glucose 165 H, Triglycerides 469 H, Cholesterol 306 H, LDL Cholesterol Direct 182 H, HDL Cholesterol 42 03/16/17 21:30: POC Glucose (mg/dL) 163 H 03/15/17 18:37: WBC 6.6 D, RBC 4.82, Hgb 15.0, Hct 44.0, MCV 91.3, MCH 31.1, MCHC 34.1, RDW 13.8, Plt Count 210, MPV 11.9 H, Gran % 55.6, Lymph % (Auto) 34.2 , [place] % (Auto) 7.4 H, Eos % (Auto) 2.6, Baso % (Auto) 0.2, Gran # 3.66, Lymph # 2.3, [place] # 0.5, Eos # 0.2, Baso # 0.01 03/15/17 18:37: Alcohol, Quantitative < 10 03/15/17 18:37: Salicylates < 1 L, Acetaminophen < 10.0 L 03/15/17 18:37: Sodium 141, Potassium 3.3 L, Chloride 104, Carbon Dioxide 29, Anion Gap 11, BUN 11, Creatinine 0.7, Est GFR ( Amer) > 60, Est GFR (Non- Af Amer) > 60, Random Glucose 224 H, Calcium 9.4, Magnesium 1.8, Total Bilirubin 0.6, AST 33, ALT 52, Alkaline Phosphatase 97, Total Protein 7.4, Albumin 4.1, Globulin 3.3, Albumin/Globulin Ratio 1.3 Vital Signs Temp Pulse Resp BP Pulse Ox 03/19/17 07:00 144/103 H 03/19/17 06:57 98.7 F 91 H 16 144/103 H 03/18/17 16:00 108 H 128/81 03/18/17 08:51 89 141/96 H 03/18/17 07:00 97.6 F 89 16 141/96 H 03/18/17 06:38 97.6 F 89 16 141/96 H 03/17/17 15:43 88 160/109 H 03/16/17 21:53 20 03/16/17 18:04 100 H 20 158/104 H 95 03/16/17 12:20 91 H 19 117/69 95 03/16/17 11:10 101 H 174/104 H 03/16/17 09:51 187/101 H 03/16/17 09:41 80 19 97 03/16/17 06:34 92 H 18 142/94 H 96 03/16/17 03:03 98 H 17 139/98 H 95 03/15/17 23:49 86 158/86 H 03/15/17 21:00 88 18 162/8 H 99 03/15/17 19:18 98.2 F 115 H 18 185/119 H 98 Laboratory Results - last 24 hr 03/22/17 03/22/17 03/23/17 17:03 21:26 07:24 WBC RBC Hgb Hct MCV MCH MCHC RDW Plt Count MPV Gran % Lymph % (Auto) [place] % (Auto) Eos % (Auto) Baso % (Auto) Gran # Lymph # [place] # Eos # Baso # Sodium Potassium Chloride Carbon Dioxide Anion Gap BUN Creatinine Est GFR ( Amer) Est GFR (Non-Af Amer) POC Glucose (mg/dL) 174 H 141 H 126 H Random Glucose Calcium Total Bilirubin AST ALT Alkaline Phosphatase Total Protein Albumin Globulin Albumin/Globulin Ratio 03/23/17 03/23/17 03/23/17 09:00 09:00 11:12 WBC 7.3 RBC 4.61 Hgb 14.2 D Hct 42.7 MCV 92.6 MCH 30.8 MCHC 33.3 RDW 13.5 Plt Count 234 MPV 11.8 H Gran % 78.0 H Lymph % (Auto) 15.6 L [place] % (Auto) 5.6 Eos % (Auto) 0.5 L Baso % (Auto) 0.3 Gran # 5.68 Lymph # 1.1 L [place] # 0.4 Eos # 0.0 Baso # 0.02 Sodium 140 Potassium 4.1 Chloride 102 Carbon Dioxide 27 Anion Gap 14 BUN 20 Creatinine 0.7 Est GFR ( Amer) > 60 Est GFR (Non-Af Amer) > 60 POC Glucose (mg/dL) 189 H Random Glucose 190 H Calcium 9.9 Total Bilirubin 0.8 AST 28 ALT 38 Alkaline Phosphatase 67 Total Protein 7.0 Albumin 4.3 Globulin 2.7 Albumin/Globulin Ratio 1.6 DSM 5 Symptoms Update: Pt is a 61 y/o (correction to my previous notes) female reported h/o schizophrenia, not known h/o suicidal attempts, pt was brought in to the hospital for evaluation of disorganized, agitated, paranoid behavior, pt was paranoid and delusional that about 50 women in her apartment having sex with each other, pt also was paranoid that her boyfriend (correction to my previous note) is cheating on her. pt was agitated in ED, needed to be medicated with IM ativan+geodon+haldol, pt required further evaluation and stabilization, pt was admitted under voluntary status. pt was seen and examined today at the morning time at the treatment team meeting room, pt is very confused, said that she sees "babies in boxes", CBC, CMP , UA stat ordered, medical team evaluate pt. pt is paranoid, disorganized, tried to elope, pt then was screaming "Venkat, Venkat", needed to be medicated with thorazine and ativan IM because pose danger to self. MSE: patient presented To be more alert, pleasant, corporative, personal hygiene is improving, fare ADLs, good eye contact, speech was overproducted, mood "I am doing fine", thought process is disorganized, thought content visual hallucinations, paranoia, denied thoughts of harming self or others, denied intent or plan, insight and judgment are limited, impulses are unpredictable. Impression: r/o schzophrenia r/o delirium Plan: pt rescinded 48hr notice today (initially submitted yesterday) 1:1 observation Milieu/structure/supportive therapy Medical consult appreciated, see medical team note for more detailed info SW consultation for discharge plan and social issues Med management risperdal d.c thorazine started po tid 50mg po geodon prn pt was on invega sustenna 165mg IM q4 weeks (confirmed by SW), pt missed her shot on March 10, last dose was 03/23/17 next dose should be given 04/07/17 ativan 1mg po tid ambien 10mg po hs prn cymbalta 60mg po daily for depression all meds were resumed by Dr.Levine spangler started for bronchitis Family involvement Follow up on labs Will monitor closely SW evaluation for d/c planning Pt was educated about risk/benefits and alternatives of medications, coping strategies (safety plan, suicide prevention), relapse prevention, importance of follow up with psychiatrist and therapist, stay away from drugs/alcohol/smoking Medication Change: Yes (d/c risperdal, d/c vistaril, thorazine started) Medical Record Reviewed: Yes Mental Status Examination - Cognitive Function Orientation: Person, Place Memory: Impaired Attention: Poor Concentration: Poor Association: Loose - Mood Mood: Other ( "okay".) - Affect Affect: Flat - Speech Speech: Stammering (mild, hesitant responses) - Formal Thought Process Formal Thought Process: Delusions, Paranoia, Loosening of associations - Suicidal Ideation Suicidal Ideation: No - Homicidal Ideation Homicidal Ideation: No Goal/Treatment Plan - Goal/Treatment Plan Need for Continued Stay: Remain at risks for inpatient hospitalization, Severe depression anxiety, Discharge may exacerbated symptoms, Severe functional impairment Estimated Date of D/C: 03/25/17
[2017-03-25] MEDS: Amoxicillin-Clav 500-125 mg Tab PO SCH (18:21)
[2017-03-26] MEDS: Insulin Reg-MEDIUM-Coverage SC SCH ×4 (09:00→21:48)
[2017-03-26] MEDS: Amoxicillin-Clav 500-125 mg Tab PO SCH ×2 (10:14→17:32)
[2017-03-26] MEDS: Levothyroxine 25 MCG TAB PO SCH (10:15)
[2017-03-26] MEDS: Pantoprazole 40 mg EC Tab PO SCH (10:15)
--- NOTE | 2017-03-26 10:50 | PCM.BM ---
<Christopher Portillo - Last Filed: 03/26/17 10:50> Treatment Plan Problems - Problems identified on initial assessmt DELUSIONS Date Initiated: 03/16/17 Time Initiated: 21:00 Assessment reference: NA DEPRESSION Date Initiated: 03/16/17 Time Initiated: 21:00 Assessment reference: NA Status: Active Treatment assets and liabiliti Patient Assests: cooperative, educated, self-reliant, ADL independent, negotiates basic needs, cognitively intact Patient Liabilities: live alone, financial problems, relationship conflicts, dietary restrictions - Milieu Protocol Maintain good personal hygiene: daily Encourage regular showers, every shift Remind patient to perform daily oral care, every shift Assist patient to perform ADL's Maintain personal safety: every shift Educate patient to report safety concerns to staff, every shift Monitor environment for contraband/sharps Medication safety: Monitor for expected outcome, potential side effects: every shift, Assess barriers to learning: every shift, Assess readiness for medication education: every shift Milieu Narrative: * c/w current tx and plan * Appreciate f/u by Dr. Antoine on 03/20/17 * No new weekend labs thus far * Vitals reviewed and noted below: Selected Entries 03/19/17 03/20/17 03/20/17 16:21 06:52 08:17 Temperature 98.7 F 97.7 F Pulse Rate 100 H 79 Respiratory 17 Rate Blood Pressure 125/87 161/90 H 161/90 H O2 Sat by Pulse 93 L Oximetry 03/20/17 16:30 Temperature Pulse Rate 80 Respiratory Rate Blood Pressure 124/83 O2 Sat by Pulse Oximetry Family Contact Family involvement: Family/SO is involved Family contact: Patient agrees to contact Family contact name: Venkat Humphrey Family contact comment: Patient's boyfriend, Venkat Humphrey, provided collateral information. - Outside Agency Agency 1 Care involvment: Information-sharing Agency contact name: Martin Carroll Agency contact number: [phone] Agency 2 Care involvment: Other Agency contact name: Patient reports she is [place] [employer]-involved - Goals for Treatment Patient goals for treatment: Patient reports she wants to get back home to her boyfriend and her cat and return to treatment with Dr. Carreon. Discharge/Continuing Care - Education Needs Education Needs: Patient Medication, Patient Diagnosis/Disease Process, Patient Coping Skills, Patient Anger Management skills, Patient Community resources, Patient Health Practices/Safety, Patient Aftercare Safety Plan - Discharge Discharge Criteria: Tolerates medication w/o severe side effects, Free of paranoid thoughts, Free of agitation, Normal sleep pattern, Ability to care for self - Treatment Team Participation Patient/Family/SO Statement: * c/w current tx and plan * Appreciate f/u by Dr. Antoine on 03/20/17 * No new weekend labs thus far * Vitals reviewed and noted below: Selected Entries 03/19/17 03/20/17 03/20/17 16:21 06:52 08:17 Temperature 98.7 F 97.7 F Pulse Rate 100 H 79 Respiratory 17 Rate Blood Pressure 125/87 161/90 H 161/90 H O2 Sat by Pulse 93 L Oximetry 03/20/17 16:30 Temperature Pulse Rate 80 Respiratory Rate Blood Pressure 124/83 O2 Sat by Pulse Oximetry Treatment Plan Review - Problem DELUSIONS Time Initiated: 21:00 DEPRESSION Time Initiated: 21:00 <Ewa More - Last Filed: 03/26/17 12:37> - Diagnosis (1) Schizophrenia Status: Acute Interventions: 03/26/17 12:33 pt has residual symptoms of schizophrenia +UTI and delirium now pt is on 1:1 (2) Delirium due to another medical condition Status: Acute Interventions: 03/26/17 12:34 pt was started on abx pt is on 1:1 was seen by medical team.
--- NOTE | 2017-03-26 11:20 | PN ---
DATE: SUBJECTIVE: I saw her this morning. She was sleeping well. She slept all through the night. She was a little bit confused yesterday. I did a blood culture, urine culture, and blood test on her. Discussed with the psychiatrist at length. MEDICATIONS: She is on Ambien, Ativan, and Augmentin antibiotic, Benadryl, Cogentin, Cozaar, Cymbalta, Ecotrin, Geodon, Glucophage, insulin, Lopressor, Maalox, Microzide, milk of magnesia, NicoDerm, Norvasc, Protonix, Synthroid, Thorazine, TriCor, and Tylenol. PHYSICAL EXAMINATION: VITAL SIGNS: She has a 98 temperature, 89 pulse, 121/78 blood pressure, 20 respiratory rate, 96% O2 sat. HEENT: Head is atraumatic and normocephalic. Throat is moist. NECK: Supple. HEART: Regular rate. LUNGS: Clear to auscultation. ABDOMEN: Soft, obese, and nontender. EXTREMITIES: No edema. She has been in and out of it mentally yesterday. We will discuss this with her again and will see how she is doing today. LABORATORY DATA: Lab yesterday, she had a 141 sodium, potassium is 4, BUN 27. She has to drink a little more water. Her last blood sugar was 156, they have all been pretty good. Calcium is 10.4, total bilirubin is 1.1, AST is 32, ALT is 54, alkaline phosphatase 79, total protein is 8. She has a white count of 9.5, 14.6 hemoglobin, 42.3 hematocrit, with 247 platelets. The urine did come back many bacteria. Toxicology was negative on 03/23/2017, waiting for micro to come back on the urine and the blood culture. In the meantime, we will continue with the Augmentin for the UTI. We will see how she improves mentally, and we will follow. We will check her labs tomorrow. She has multiple issues; diabetes, schizophrenia, bronchitis, hypertension, UTI, and high cholesterol. Avelino Antoine DO
--- NOTE | 2017-03-26 12:43 | PCM.PYCHPN ---
Psychiatric Progress Note - Psychiatric Progress Note Patient seen today, length of contact: 30min Patient Chief Complaint: "when I will be discharged?" Medical Problems: 03/18/17 07:20 03/18/17 07:20 Lab Results 03/18/17 08:02: POC Glucose (mg/dL) 164 H 03/18/17 07:20: Hemoglobin A1c 7.9 H D 03/18/17 07:20: TSH 3rd Generation 1.36 03/18/17 07:20: Sodium 143, Potassium 3.9, Chloride 105, Carbon Dioxide 29, Anion Gap 13, BUN 13, Creatinine 0.8, Est GFR ( Amer) > 60, Est GFR (Non- Af Amer) > 60, Random Glucose 193 H, Calcium 9.9, Total Bilirubin 1.0, AST 42 H D, ALT 41, Alkaline Phosphatase 101, Total Protein 7.9, Albumin 4.3, Globulin 3.6, Albumin/Globulin Ratio 1.2 03/18/17 07:20: WBC 7.7, RBC 5.28, Hgb 16.4 H, Hct 48.7 H, MCV 92.2, MCH 31.1, MCHC 33.7, RDW 13.9, Plt Count 199, MPV 12.0 H 03/17/17 21:52: POC Glucose (mg/dL) 150 H 03/17/17 06:45: TSH 3rd Generation 0.45 L 03/17/17 06:45: Fasting Glucose 165 H, Triglycerides 469 H, Cholesterol 306 H, LDL Cholesterol Direct 182 H, HDL Cholesterol 42 03/16/17 21:30: POC Glucose (mg/dL) 163 H 03/15/17 18:37: WBC 6.6 D, RBC 4.82, Hgb 15.0, Hct 44.0, MCV 91.3, MCH 31.1, MCHC 34.1, RDW 13.8, Plt Count 210, MPV 11.9 H, Gran % 55.6, Lymph % (Auto) 34.2 , [place] % (Auto) 7.4 H, Eos % (Auto) 2.6, Baso % (Auto) 0.2, Gran # 3.66, Lymph # 2.3, [place] # 0.5, Eos # 0.2, Baso # 0.01 03/15/17 18:37: Alcohol, Quantitative < 10 03/15/17 18:37: Salicylates < 1 L, Acetaminophen < 10.0 L 03/15/17 18:37: Sodium 141, Potassium 3.3 L, Chloride 104, Carbon Dioxide 29, Anion Gap 11, BUN 11, Creatinine 0.7, Est GFR ( Amer) > 60, Est GFR (Non- Af Amer) > 60, Random Glucose 224 H, Calcium 9.4, Magnesium 1.8, Total Bilirubin 0.6, AST 33, ALT 52, Alkaline Phosphatase 97, Total Protein 7.4, Albumin 4.1, Globulin 3.3, Albumin/Globulin Ratio 1.3 Vital Signs Temp Pulse Resp BP Pulse Ox 03/18/17 08:51 89 141/96 H 03/18/17 07:00 97.6 F 89 16 141/96 H 03/18/17 06:38 97.6 F 89 16 141/96 H 03/17/17 15:43 88 160/109 H 03/16/17 21:53 20 03/16/17 18:04 100 H 20 158/104 H 95 03/16/17 12:20 91 H 19 117/69 95 03/16/17 11:10 101 H 174/104 H 03/16/17 09:51 187/101 H 03/16/17 09:41 80 19 97 03/16/17 06:34 92 H 18 142/94 H 96 03/16/17 03:03 98 H 17 139/98 H 95 03/15/17 23:49 86 158/86 H 03/15/17 21:00 88 18 162/8 H 99 03/15/17 19:18 98.2 F 115 H 18 185/119 H 98 pt was seen by medical team pt is on abx for bronchitis pt was confused today, CBC and CMP wnl Laboratory Results - last 24 hr 03/23/17 03/23/17 03/23/17 16:27 16:27 16:30 POC Glucose (mg/dL) 134 H Urine Color Dark yellow Urine Appearance Clear Urine pH 6.0 Ur Specific [place] 1.015 Urine Protein Negative Urine Glucose (UA) Negative Urine Ketones Trace H Urine Blood Negative Urine Nitrate Negative Urine Bilirubin Negative Urine Urobilinogen 0.2 Ur Leukocyte Esterase Negative Urine Opiates Screen Negative Urine Methadone Screen Negative Ur Barbiturates Screen Negative Ur Phencyclidine Scrn Negative Ur Amphetamines Screen Negative U Benzodiazepines Scrn Negative U Oth Cocaine Metabols Negative U Cannabinoids Screen Negative 03/23/17 03/24/17 03/24/17 21:51 07:45 11:45 POC Glucose (mg/dL) 163 H 183 H 205 H Urine Color Urine Appearance Urine pH Ur Specific [place] Urine Protein Urine Glucose (UA) Urine Ketones Urine Blood Urine Nitrate Urine Bilirubin Urine Urobilinogen Ur Leukocyte Esterase Urine Opiates Screen Urine Methadone Screen Ur Barbiturates Screen Ur Phencyclidine Scrn Ur Amphetamines Screen U Benzodiazepines Scrn U Oth Cocaine Metabols U Cannabinoids Screen Laboratory Results - last 24 hr 03/24/17 03/24/17 03/25/17 16:25 21:22 03:48 WBC RBC Hgb Hct MCV MCH MCHC RDW Plt Count MPV Sodium Potassium Chloride Carbon Dioxide Anion Gap BUN Creatinine Est GFR ( Amer) Est GFR (Non-Af Amer) POC Glucose (mg/dL) 116 H 174 H 140 H Random Glucose Calcium Total Bilirubin AST ALT Alkaline Phosphatase Total Protein Albumin Globulin Albumin/Globulin Ratio Urine Color Urine Appearance Urine pH Ur Specific [place] Urine Protein Urine Glucose (UA) Urine Ketones Urine Blood Urine Nitrate Urine Bilirubin Urine Urobilinogen Ur Leukocyte Esterase Urine RBC Urine WBC Ur Epithelial Cells Urine Bacteria 03/25/17 03/25/17 03/25/17 08:09 09:15 09:15 WBC 9.5 D RBC 4.71 Hgb 14.6 Hct 43.3 MCV 91.9 MCH 31.0 MCHC 33.7 RDW 13.5 Plt Count 247 MPV 11.7 H Sodium 141 Potassium 4.0 Chloride 102 Carbon Dioxide 27 Anion Gap 16 BUN 27 H Creatinine 0.9 Est GFR ( Amer) > 60 Est GFR (Non-Af Amer) > 60 POC Glucose (mg/dL) 144 H Random Glucose 140 H Calcium 10.4 Total Bilirubin 1.1 AST 32 ALT 54 Alkaline Phosphatase 79 Total Protein 8.0 Albumin 4.6 Globulin 3.3 Albumin/Globulin Ratio 1.4 Urine Color Urine Appearance Urine pH Ur Specific [place] Urine Protein Urine Glucose (UA) Urine Ketones Urine Blood Urine Nitrate Urine Bilirubin Urine Urobilinogen Ur Leukocyte Esterase Urine RBC Urine WBC Ur Epithelial Cells Urine Bacteria 03/25/17 03/25/17 12:00 12:06 WBC RBC Hgb Hct MCV MCH MCHC RDW Plt Count MPV Sodium Potassium Chloride Carbon Dioxide Anion Gap BUN Creatinine Est GFR ( Amer) Est GFR (Non-Af Amer) POC Glucose (mg/dL) 123 H Random Glucose Calcium Total Bilirubin AST ALT Alkaline Phosphatase Total Protein Albumin Globulin Albumin/Globulin Ratio Urine Color Dark yellow Urine Appearance Clear Urine pH 6.0 Ur Specific [place] 1.015 Urine Protein Negative Urine Glucose (UA) Negative Urine Ketones Trace H Urine Blood Negative Urine Nitrate Negative Urine Bilirubin Negative Urine Urobilinogen 0.2 Ur Leukocyte Esterase Small H Urine RBC 0 - 2 Urine WBC 5 - 10 Ur Epithelial Cells 6 - 8 Urine Bacteria Many Temp Pulse Resp BP Pulse Ox 98.0 F 110 H 20 131/69 96 03/25/17 06:08 03/25/17 10:26 03/25/17 06:08 03/25/17 10:26 03/25/17 06:08 Temp Pulse Resp BP Pulse Ox 97.5 F L 78 17 134/87 96 03/26/17 07:00 03/26/17 09:00 03/26/17 07:00 03/26/17 10:12 03/26/17 07:00 Laboratory Results - last 24 hr 03/25/17 03/25/17 03/25/17 12:00 16:41 21:47 POC Glucose (mg/dL) 138 H 183 H Urine RBC 0 - 2 Urine WBC 5 - 10 Ur Epithelial Cells 6 - 8 Urine Bacteria Many 03/26/17 03/26/17 07:51 11:42 POC Glucose (mg/dL) 156 H 165 H Urine RBC Urine WBC Ur Epithelial Cells Urine Bacteria Diagnostic Results: 03/18/17 07:20 03/18/17 07:20 Lab Results 03/19/17 11:57: POC Glucose (mg/dL) 158 H 03/19/17 08:07: POC Glucose (mg/dL) 138 H 03/18/17 21:40: POC Glucose (mg/dL) 151 H 03/18/17 16:15: POC Glucose (mg/dL) 161 H 03/18/17 08:02: POC Glucose (mg/dL) 164 H 03/18/17 07:20: Hemoglobin A1c 7.9 H D 03/18/17 07:20: TSH 3rd Generation 1.36 03/18/17 07:20: Sodium 143, Potassium 3.9, Chloride 105, Carbon Dioxide 29, Anion Gap 13, BUN 13, Creatinine 0.8, Est GFR ( Amer) > 60, Est GFR (Non- Af Amer) > 60, Random Glucose 193 H, Calcium 9.9, Total Bilirubin 1.0, AST 42 H D, ALT 41, Alkaline Phosphatase 101, Total Protein 7.9, Albumin 4.3, Globulin 3.6, Albumin/Globulin Ratio 1.2 03/18/17 07:20: WBC 7.7, RBC 5.28, Hgb 16.4 H, Hct 48.7 H, MCV 92.2, MCH 31.1, MCHC 33.7, RDW 13.9, Plt Count 199, MPV 12.0 H 03/17/17 21:52: POC Glucose (mg/dL) 150 H 03/17/17 06:45: TSH 3rd Generation 0.45 L 03/17/17 06:45: Fasting Glucose 165 H, Triglycerides 469 H, Cholesterol 306 H, LDL Cholesterol Direct 182 H, HDL Cholesterol 42 03/16/17 21:30: POC Glucose (mg/dL) 163 H 03/15/17 18:37: WBC 6.6 D, RBC 4.82, Hgb 15.0, Hct 44.0, MCV 91.3, MCH 31.1, MCHC 34.1, RDW 13.8, Plt Count 210, MPV 11.9 H, Gran % 55.6, Lymph % (Auto) 34.2 , [place] % (Auto) 7.4 H, Eos % (Auto) 2.6, Baso % (Auto) 0.2, Gran # 3.66, Lymph # 2.3, [place] # 0.5, Eos # 0.2, Baso # 0.01 03/15/17 18:37: Alcohol, Quantitative < 10 03/15/17 18:37: Salicylates < 1 L, Acetaminophen < 10.0 L 03/15/17 18:37: Sodium 141, Potassium 3.3 L, Chloride 104, Carbon Dioxide 29, Anion Gap 11, BUN 11, Creatinine 0.7, Est GFR ( Amer) > 60, Est GFR (Non- Af Amer) > 60, Random Glucose 224 H, Calcium 9.4, Magnesium 1.8, Total Bilirubin 0.6, AST 33, ALT 52, Alkaline Phosphatase 97, Total Protein 7.4, Albumin 4.1, Globulin 3.3, Albumin/Globulin Ratio 1.3 Vital Signs Temp Pulse Resp BP Pulse Ox 03/19/17 07:00 144/103 H 03/19/17 06:57 98.7 F 91 H 16 144/103 H 03/18/17 16:00 108 H 128/81 03/18/17 08:51 89 141/96 H 03/18/17 07:00 97.6 F 89 16 141/96 H 03/18/17 06:38 97.6 F 89 16 141/96 H 03/17/17 15:43 88 160/109 H 03/16/17 21:53 20 03/16/17 18:04 100 H 20 158/104 H 95 03/16/17 12:20 91 H 19 117/69 95 03/16/17 11:10 101 H 174/104 H 03/16/17 09:51 187/101 H 03/16/17 09:41 80 19 97 03/16/17 06:34 92 H 18 142/94 H 96 03/16/17 03:03 98 H 17 139/98 H 95 03/15/17 23:49 86 158/86 H 03/15/17 21:00 88 18 162/8 H 99 03/15/17 19:18 98.2 F 115 H 18 185/119 H 98 Laboratory Results - last 24 hr 03/22/17 03/22/17 03/23/17 17:03 21:26 07:24 WBC RBC Hgb Hct MCV MCH MCHC RDW Plt Count MPV Gran % Lymph % (Auto) [place] % (Auto) Eos % (Auto) Baso % (Auto) Gran # Lymph # [place] # Eos # Baso # Sodium Potassium Chloride Carbon Dioxide Anion Gap BUN Creatinine Est GFR ( Amer) Est GFR (Non-Af Amer) POC Glucose (mg/dL) 174 H 141 H 126 H Random Glucose Calcium Total Bilirubin AST ALT Alkaline Phosphatase Total Protein Albumin Globulin Albumin/Globulin Ratio 03/23/17 03/23/17 03/23/17 09:00 09:00 11:12 WBC 7.3 RBC 4.61 Hgb 14.2 D Hct 42.7 MCV 92.6 MCH 30.8 MCHC 33.3 RDW 13.5 Plt Count 234 MPV 11.8 H Gran % 78.0 H Lymph % (Auto) 15.6 L [place] % (Auto) 5.6 Eos % (Auto) 0.5 L Baso % (Auto) 0.3 Gran # 5.68 Lymph # 1.1 L [place] # 0.4 Eos # 0.0 Baso # 0.02 Sodium 140 Potassium 4.1 Chloride 102 Carbon Dioxide 27 Anion Gap 14 BUN 20 Creatinine 0.7 Est GFR ( Amer) > 60 Est GFR (Non-Af Amer) > 60 POC Glucose (mg/dL) 189 H Random Glucose 190 H Calcium 9.9 Total Bilirubin 0.8 AST 28 ALT 38 Alkaline Phosphatase 67 Total Protein 7.0 Albumin 4.3 Globulin 2.7 Albumin/Globulin Ratio 1.6 DSM 5 Symptoms Update: Pt is a 61 y/o (correction to my previous notes) female reported h/o schizophrenia, not known h/o suicidal attempts, pt was brought in to the hospital for evaluation of disorganized, agitated, paranoid behavior, pt was paranoid and delusional that about 50 women in her apartment having sex with each other, pt also was paranoid that her boyfriend (correction to my previous note) is cheating on her. pt was agitated in ED, needed to be medicated with IM ativan+geodon+haldol, pt required further evaluation and stabilization, pt was admitted under voluntary status. pt was seen and examined today in her room, finally pt slept well, pt was found to have UTI, was started on antibiotics, delirium is clearing so far, pt takes meds, was seen by medical team. pt is paranoid, disorganized, still, but there is no aggression or agitation, yesterday pt tried to elope, was agitated needed IMs. MSE: patient presented To be sleepy, pleasant, corporative, personal hygiene is improving, fare ADLs, good eye contact, speech was low volume, mood "when I will be discharged?", thought process is disorganized, thought content visual hallucinations, paranoia, denied thoughts of harming self or others, denied intent or plan, insight and judgment are limited, impulses are unpredictable. Impression: r/o schzophrenia r/o delirium Plan: pt rescinded 48 hr notice 03/25/17 1:1 observation will be continued augmentin was started yesterday 500mg po bid as per medical advise Milieu/structure/supportive therapy Medical consult appreciated, see medical team note for more detailed info [facility] consultation for discharge plan and social issues Med management risperdal d.c thorazine started po tid 50mg po geodon prn pt was on invega sustenna 165mg IM q4 weeks (confirmed by [facility]), pt missed her shot on March 10, last dose was 03/23/17 next dose should be given 04/07/17 ativan 1mg po tid ambien 10mg po hs prn cymbalta 60mg po daily for depression all meds were resumed by Dr.Levine spangler started for bronchitis Family involvement Follow up on labs Will monitor closely [facility] evaluation for d/c planning Pt was educated about risk/benefits and alternatives of medications, coping strategies (safety plan, suicide prevention), relapse prevention, importance of follow up with psychiatrist and therapist, stay away from drugs/alcohol/smoking Medication Change: Yes (d/c risperdal, d/c vistaril, thorazine started) Medical Record Reviewed: Yes Consults ordered or reviewed: medical consult appreciated Mental Status Examination - Cognitive Function Orientation: Person, Place Memory: Impaired Attention: Poor Concentration: Poor Association: Loose - Mood Mood: Other ( "okay".) - Affect Affect: Flat - Speech Speech: Stammering (mild, hesitant responses) - Formal Thought Process Formal Thought Process: Delusions, Paranoia, Loosening of associations - Suicidal Ideation Suicidal Ideation: No - Homicidal Ideation Homicidal Ideation: No Goal/Treatment Plan - Goal/Treatment Plan Need for Continued Stay: Remain at risks for inpatient hospitalization, Severe depression anxiety, Discharge may exacerbated symptoms, Severe functional impairment Estimated Date of D/C: 03/29/17 (will monitor closely)
[2017-03-27 07:48] LABS: HEMATOCRIT 41.9 % (36.0-48.0); MEAN CELL VOLUME 94.6 fl (80.0-105.0); MEAN CORPUSCULAR HEMOGLOBIN 30.5 pg (25.0-35.0); MEAN CORPUSCULAR HGB CONC 32.2 g/dl (31.0-37.0); RED CELL DISTRIBUTION WIDTH 13.5 % (11.5-14.5); WHITE BLOOD COUNT 7.4 10^3/ul (4.5-11.0)
[2017-03-27 08:07] LABS: ALB/GLOB RATIO 1.6 (1.1-1.8); ALKALINE PHOSPHATASE 58 U/L (38-126); ALT/SGPT 46 U/L (7-56); AST/SGOT 30 U/L (14-36); BILIRUBIN,TOTAL 0.7 mg/dL (0.2-1.3); BLOOD UREA NITROGEN 22 mg/dL (7-21); CALCIUM 9.9 mg/dL (8.4-10.5); CARBON DIOXIDE 28 mmol/L (21-33); CHLORIDE 104 mmol/L (98-107); GFR AFRICAN-AMERICAN > 60; GLUCOSE,RANDOM 146 mg/dL (70-110); POTASSIUM 3.7 mmol/L (3.6-5.0); SODIUM 141 mmol/L (132-148); TOTAL PROTEIN 6.4 g/dL (5.8-8.3)
--- NOTE | 2017-03-27 09:21 | PCM.PYCHPN ---
Psychiatric Progress Note - Psychiatric Progress Note Patient seen today, length of contact: 25 min Patient Chief Complaint: "okay" Problems Identified/Issues Discussed: I reviewed recent notes and interviewed patient at bedside. Grooming is adequate. Patient is fairly cooperative with my questioning. Focus and orientation appears improved since last weekend. Patient was not able to provide the correct month but is aware that she is at [facility] and it is 2017. She indicated she feels "okay". Affect is a little bit more reactive and more spontaneous. Patient denies having any hallucinations or paranoia. She wasn't observed to be responding to internal stimuli. Patient denies any side effects from her medications and reports that she slept well. She denies any new discomfort or pain. Staff notes indicate that patient has generally been in control, cooperative though still disoriented. Patient did try to elope a few days ago and needed IM. No recent aggression or agitation noted. Diagnostic Results: r/o schzophrenia r/o delirium (improving) Medication Change: No Medical Record Reviewed: Yes Mental Status Examination - Cognitive Function Orientation: Person, Place Memory: Impaired Attention: Poor Concentration: Poor Association: Loose - Mood Mood: Other ( "okay".) - Affect Affect: Flat (Affect is a little bit more reactive and more spontaneous) - Speech Speech: Appropriate - Formal Thought Process Formal Thought Process: Delusions (not noted today), Paranoia (not noted today) , Loosening of associations - Suicidal Ideation Suicidal Ideation: No - Homicidal Ideation Homicidal Ideation: No Goal/Treatment Plan - Goal/Treatment Plan Need for Continued Stay: Remain at risks for inpatient hospitalization, Severe depression anxiety, Discharge may exacerbated symptoms, Severe functional impairment Progress Toward Problem(s) and Goals/Treatment Plan: * c/w current tx and plan * Vitals reviewed and noted below: Selected Entries 03/26/17 03/26/17 03/26/17 07:00 09:00 10:12 Temperature 97.5 F L Pulse Rate 104 H 78 Respiratory 17 Rate Blood Pressure 134/87 142/96 H 134/87 O2 Sat by Pulse 96 Oximetry 03/26/17 03/26/17 16:30 17:28 Temperature Pulse Rate 116 H 116 H Respiratory Rate Blood Pressure 125/67 125/67 O2 Sat by Pulse Oximetry * Patient rescinded 48 hr notice 03/25/17 * New weekend labs noted below: 03/27/17 07:00 03/27/17 07:00 Estimated Date of D/C: 04/02/17
[2017-03-27] MEDS: Pantoprazole 40 mg EC Tab PO SCH (09:25)
[2017-03-27] MEDS: Amoxicillin-Clav 500-125 mg Tab PO SCH ×2 (09:25→16:52)
[2017-03-27] MEDS: Levothyroxine 25 MCG TAB PO SCH (09:26)
[2017-03-27] MEDS: Insulin Reg-MEDIUM-Coverage SC SCH ×4 (09:34→23:02)
--- NOTE | 2017-03-27 16:10 | PN ---
DATE: SUBJECTIVE: I saw Sena in her room in the psychiatric floor with a one to one. She is alert, more appropriate, comfortable, no pain, talking well, but a bit confused. She is on Ambien, Ativan, Augmentin, Cogentin, Cozaar, Cymbalta, Ecotrin, Geodon, Glucophage, insulin, Lopressor, Maalox, Microzide, milk of magnesia, Nicoderm, Norvasc, Protonix, Synthroid, Thorazine, TriCor, and Tylenol. PHYSICAL EXAMINATION: VITAL SIGNS: 97.4 temperature, 86 pulse, 100/41 blood pressure, and 20 respiratory rate. HEENT: Head is atraumatic and normocephalic. Throat is moist. NECK: Supple. HEART: Regular rate. LUNGS: Clear to auscultation. ABDOMEN: Soft and nontender. Positive bowel sounds. No guarding. No rebound. No CVA tenderness. Morbidly obese. EXTREMITIES: No edema. LABORATORY DATA: She has 7.4 white count, 30.5 hemoglobin, 41.9 hematocrit, and 224 platelets. She has 141 sodium, potassium is 3.7, BUN 22, creatinine 0.7, GFR is greater than 60, sugar is 143, calcium 9.9, total bilirubin is 0.7, AST is 30, ALT is 46, alkaline phosphatase 58, and total protein 6.4. She did have a TSH of 1.36 a few days ago. ASSESSMENT AND PLAN: She is being seen by psychiatry. Clinically, she is improving over the past few days. She has a urinary tract infection which a preliminary showed no growth. The patient is on Augmentin which I think made a difference. I am hoping that she continues to improve mentally. She has diabetes, schizophrenia, bronchitis, hypertension, gastroesophageal reflux disease, anxiety, urinary tract infection, high lipids, and smoker and change in mentation. We will follow. Went over the labs. Avelino Antoine DO [facility]
[2017-03-28] MEDS: Amoxicillin-Clav 500-125 mg Tab PO SCH ×2 (09:46→17:26)
[2017-03-28] MEDS: Levothyroxine 25 MCG TAB PO SCH (09:46)
[2017-03-28] MEDS: Pantoprazole 40 mg EC Tab PO SCH (09:48)
--- NOTE | 2017-03-28 10:00 | PCM.PYCHPN ---
Psychiatric Progress Note - Psychiatric Progress Note Patient seen today, length of contact: 25 min Patient Chief Complaint: "okay" Problems Identified/Issues Discussed: I reviewed recent notes and interviewed patient at bedside. Grooming is a little unkempt. Patient is more disorganized during our interview today. Focus is inconsistent and she wanders out of her room during questioning. She was also seen wandering the unit while I was interviewing other patients. Again, patient was not able to provide the correct month even though this information was provided to her yesterday. She indicated that she feels "okay". Affect is a little bit more reactive and more spontaneous though thought process is scattered, preoccupied and vague. Patient denies having any hallucinations or paranoia. She wasn't observed to be responding to internal stimuli. Patient denies any side effects from her medications and reports that she slept well. She denies any new discomfort or pain. Staff notes indicate that patient remains disoriented, disorganized and illogical. Pacing and wandering the unit. Still requires redirection. No aggression or agitation noted. Patient did try to elope a few days ago and needed IM. . Diagnostic Results: r/o schzophrenia r/o delirium (improving) Medication Change: No Medical Record Reviewed: Yes Mental Status Examination - Cognitive Function Orientation: Person, Place Memory: Impaired Attention: Poor Concentration: Poor Association: Loose - Mood Mood: Other ( "okay".) - Affect Affect: Flat (Affect is a little bit more reactive and more spontaneous) - Speech Speech: Appropriate, Loud (at times) - Formal Thought Process Formal Thought Process: Delusions (not noted today), Paranoia (not noted today) , Loosening of associations, Other (scattered, preoccupied and vague) - Suicidal Ideation Suicidal Ideation: No - Homicidal Ideation Homicidal Ideation: No Goal/Treatment Plan - Goal/Treatment Plan Need for Continued Stay: Remain at risks for inpatient hospitalization, Severe depression anxiety, Discharge may exacerbated symptoms, Severe functional impairment Progress Toward Problem(s) and Goals/Treatment Plan: * c/w current tx and plan * Appreciate f/u by Dr. Antoine on 03/27/17~continuing augmentin * Vitals reviewed and noted below: Selected Entries 03/27/17 03/27/17 03/27/17 07:05 09:35 09:36 Temperature 97.4 F L Pulse Rate 86 86 Respiratory 20 Rate Blood Pressure 100/41 L 92/59 L 92/59 L 03/27/17 03/27/17 15:00 16:48 Temperature Pulse Rate 100 H 100 H Respiratory Rate Blood Pressure 138/92 H 138/92 H * Patient rescinded 48 hr notice 03/25/17 * New weekend labs noted below: Laboratory Results - last 72 hr 03/25/17 03/25/17 03/25/17 12:00 12:06 16:41 WBC RBC Hgb Hct MCV MCH MCHC RDW Plt Count MPV Sodium Potassium Chloride Carbon Dioxide Anion Gap BUN Creatinine Est GFR ( Amer) Est GFR (Non-Af Amer) POC Glucose (mg/dL) 123 H 138 H Random Glucose Calcium Total Bilirubin AST ALT Alkaline Phosphatase Total Protein Albumin Globulin Albumin/Globulin Ratio Urine Color Dark yellow Urine Appearance Clear Urine pH 6.0 Ur Specific [place] 1.015 Urine Protein Negative Urine Glucose (UA) Negative Urine Ketones Trace H Urine Blood Negative Urine Nitrate Negative Urine Bilirubin Negative Urine Urobilinogen 0.2 Ur Leukocyte Esterase Small H Urine RBC 0 - 2 Urine WBC 5 - 10 Ur Epithelial Cells 6 - 8 Urine Bacteria Many 03/25/17 03/26/17 03/26/17 21:47 07:51 11:42 WBC RBC Hgb Hct MCV MCH MCHC RDW Plt Count MPV Sodium Potassium Chloride Carbon Dioxide Anion Gap BUN Creatinine Est GFR ( Amer) Est GFR (Non-Af Amer) POC Glucose (mg/dL) 183 H 156 H 165 H Random Glucose Calcium Total Bilirubin AST ALT Alkaline Phosphatase Total Protein Albumin Globulin Albumin/Globulin Ratio Urine Color Urine Appearance Urine pH Ur Specific [place] Urine Protein Urine Glucose (UA) Urine Ketones Urine Blood Urine Nitrate Urine Bilirubin Urine Urobilinogen Ur Leukocyte Esterase Urine RBC Urine WBC Ur Epithelial Cells Urine Bacteria 03/26/17 03/26/17 03/27/17 16:41 21:41 07:00 WBC 7.4 D RBC 4.43 Hgb 13.5 Hct 41.9 MCV 94.6 MCH 30.5 MCHC 32.2 RDW 13.5 Plt Count 224 MPV 12.0 H Sodium Potassium Chloride Carbon Dioxide Anion Gap BUN Creatinine Est GFR ( Amer) Est GFR (Non-Af Amer) POC Glucose (mg/dL) 125 H 140 H Random Glucose Calcium Total Bilirubin AST ALT Alkaline Phosphatase Total Protein Albumin Globulin Albumin/Globulin Ratio Urine Color Urine Appearance Urine pH Ur Specific [place] Urine Protein Urine Glucose (UA) Urine Ketones Urine Blood Urine Nitrate Urine Bilirubin Urine Urobilinogen Ur Leukocyte Esterase Urine RBC Urine WBC Ur Epithelial Cells Urine Bacteria 03/27/17 03/27/17 03/27/17 07:00 07:19 11:18 WBC RBC Hgb Hct MCV MCH MCHC RDW Plt Count MPV Sodium 141 Potassium 3.7 Chloride 104 Carbon Dioxide 28 Anion Gap 13 BUN 22 H Creatinine 0.7 Est GFR ( Amer) > 60 Est GFR (Non-Af Amer) > 60 POC Glucose (mg/dL) 144 H 143 H Random Glucose 146 H Calcium 9.9 Total Bilirubin 0.7 AST 30 ALT 46 Alkaline Phosphatase 58 Total Protein 6.4 Albumin 3.9 Globulin 2.4 Albumin/Globulin Ratio 1.6 Urine Color Urine Appearance Urine pH Ur Specific [place] Urine Protein Urine Glucose (UA) Urine Ketones Urine Blood Urine Nitrate Urine Bilirubin Urine Urobilinogen Ur Leukocyte Esterase Urine RBC Urine WBC Ur Epithelial Cells Urine Bacteria 03/27/17 03/27/17 03/28/17 16:18 21:23 07:14 WBC RBC Hgb Hct MCV MCH MCHC RDW Plt Count MPV Sodium Potassium Chloride Carbon Dioxide Anion Gap BUN Creatinine Est GFR ( Amer) Est GFR (Non-Af Amer) POC Glucose (mg/dL) 158 H 156 H 148 H Random Glucose Calcium Total Bilirubin AST ALT Alkaline Phosphatase Total Protein Albumin Globulin Albumin/Globulin Ratio Urine Color Urine Appearance Urine pH Ur Specific [place] Urine Protein Urine Glucose (UA) Urine Ketones Urine Blood Urine Nitrate Urine Bilirubin Urine Urobilinogen Ur Leukocyte Esterase Urine RBC Urine WBC Ur Epithelial Cells Urine Bacteria 03/27/17 07:00 03/27/17 07:00 Estimated Date of D/C: 04/02/17
[2017-03-28] MEDS: Insulin Reg-MEDIUM-Coverage SC SCH ×4 (10:01→22:13)
--- NOTE | 2017-03-28 11:39 | CT ---
PROCEDURE: CT HEAD WITHOUT CONTRAST. HISTORY: ams COMPARISON: Noncontrast head CT performed 03/22/17 TECHNIQUE: Axial computed tomography images were obtained through the head/brain without intravenous contrast. Radiation dose: Total exam DLP = 775.01 MGy-cm. This CT exam was performed using one or more of the following dose reduction techniques: Automated exposure control, adjustment of the mA and/or kV according to patient size, and/or use of iterative reconstruction technique. FINDINGS: HEMORRHAGE: No intracranial hemorrhage. BRAIN: No mass effect or edema. The wen-white matter differentiation appears intact. Please note that MRI with diffusion imaging is more sensitive in the detection of acute ischemic event. VENTRICLES: No hydrocephalus. CALVARIUM: Unremarkable. PARANASAL SINUSES: Unremarkable as visualized. No significant inflammatory changes. MASTOID AIR CELLS: Unremarkable as visualized. No inflammatory changes. OTHER FINDINGS: None. IMPRESSION: No acute intracranial pathology identified.
--- NOTE | 2017-03-28 16:11 | PN ---
DATE: SUBJECTIVE: She has been in and out of it mentally over the past 3-4 days. I had her on Augmentin for UTI. I ordered urinalysis and culture sensitivity that was not done and I ordered the blood culture, which came back negative. I am also going to order some blood tests and another urine culture on her. She is on Ambien, Ativan, Augmentin, Cogentin, Cozaar, Cymbalta, Ecotrin, Geodon, Glucophage, insulin, Lopressor, Maalox, Microzide, milk of magnesia, Nicoderm, Norvasc, Protonix, Synthroid, Thorazine, TriCor, and Tylenol. PHYSICAL EXAMINATION: VITAL SIGNS: She has 97.4 temperature, 86 pulse, 92/59 blood pressure, and 20 respiratory rate. HEENT: Head is atraumatic and normocephalic. She was up all night. She was kind of groggy again this morning. Yesterday, she did not know who I was and was reoriented to where she was and she was on one to one. HEART: Regular rate. LUNGS: Clear to auscultation. ABDOMEN: Soft, obese, and nontender. EXTREMITIES: No edema. She has no medical complaints. She tells me she feels well. There is no chest pain. No shortness of breath. No anxiety. No skin issues. No urinary tract issues. I am trying to find the reason medically for her to be off. LABORATORY DATA: She had 7.4 white count yesterday, 13.5 hemoglobin and 41.9 hematocrit with 224 platelets. She had 141 sodium, potassium 3.7, BUN 22, and creatinine 0.7, I asked her to drink more water. GFR is greater than 60. Her last blood sugar was 148. All the blood sugars have been about 140s to 150s, which is very good. Calcium is 9.9, total bilirubin is 0.7, AST is 30, ALT is 46, alkaline phosphatase is 58, total protein is 6.4, and albumin is 3.9. The last urine was positive for many bacteria and she is on Augmentin. I asked for another urinalysis and culture sensitivity to be done. She had a blood culture, which showed no growth. Only thing I am missing is urine culture and sensitivity to make sure Augmentin is the right drug for urinary tract infection for her. ASSESSMENT AND PLAN: We will check her labs tomorrow. Continue with aggressive treatment and care as per Psychiatry adjusting the medications for her mental changes. Trying to get her more oriented. I am also going to order CAT scan of the head. Avelino Antoine DO
[2017-03-29 07:13] LABS: HEMATOCRIT 40.4 % (36.0-48.0); MEAN CELL VOLUME 91.8 fl (80.0-105.0); MEAN CORPUSCULAR HEMOGLOBIN 30.7 pg (25.0-35.0); MEAN CORPUSCULAR HGB CONC 33.4 g/dl (31.0-37.0); MEAN PLATELET VOLUME 11.5 fl (7.0-11.0); RED CELL DISTRIBUTION WIDTH 13.2 % (11.5-14.5); WHITE BLOOD COUNT 8.3 10^3/ul (4.5-11.0)
[2017-03-29 07:33] LABS: ALB/GLOB RATIO 1.5 (1.1-1.8); ALKALINE PHOSPHATASE 70 U/L (38-126); ALT/SGPT 42 U/L (7-56); AST/SGOT 27 U/L (14-36); BILIRUBIN,TOTAL 0.9 mg/dL (0.2-1.3); BLOOD UREA NITROGEN 19 mg/dL (7-21); CALCIUM 10.1 mg/dL (8.4-10.5); CARBON DIOXIDE 25 mmol/L (21-33); CHLORIDE 102 mmol/L (98-107); GFR AFRICAN-AMERICAN > 60; GLUCOSE,RANDOM 131 mg/dL (70-110); POTASSIUM 3.8 mmol/L (3.6-5.0); SODIUM 138 mmol/L (132-148); TOTAL PROTEIN 7.4 g/dL (5.8-8.3)
--- NOTE | 2017-03-29 10:01 | PN ---
DATE: SUBJECTIVE: I saw Sena on a one to one Psychiatric Unit. She is still out of it mentally, not much of a change. She is very restless and not talking too well. I think she was up again last night. PHYSICAL EXAMINATION: VITAL SIGNS: Temperature 97.4, heart rate 86, blood pressure 100/41, and respiratory rate 20. HEENT: Head is atraumatic and normocephalic. HEART: Regular rate. LUNGS: Decreased breath sounds, but clear. ABDOMEN: Soft. Morbidly obese and nontender. EXTREMITIES: No edema. LABORATORY DATA: She has a white count of 8.3, hemoglobin of 13.5, hematocrit 40.4, and platelets of 230. Sodium 138, potassium 3.8, BUN 19, creatinine 0.8, GFR is greater than 60, sugars 131, and calcium 10.1. Total bilirubin, AST is 27, ALT is 42, alkaline phosphatase 70, total protein is 7.4, albumin 4.4, and globulin 3. MEDICATIONS: She is on Ambien, Ativan, Augmentin, Cogentin, Cozaar, Cymbalta, Ecotrin, Geodon, Glucophage, Haldol, Lopressor, Maalox, Microzide, milk of magnesia, Nicoderm, Norvasc, Protonix, Synthroid, Thorazine, TriCor, and Tylenol. I am still trying to get urinalysis; the last done was on 03/25/2017, shows many bacteria. We will have Augmentin on-board. I had a CAT scan of the brain done, this is the second one that she has had and it showed no acute intracranial pathology. I am not sure why she is still confused compared to when she came in. I called in Neurology for their opinion and Infectious Disease. I might change Augmentin to a different antibiotic with the urinary tract infection causing her to be mentally off. I am going to try and stop some medications. I am going to stop TriCor, see if it is possible of a medication causing her to be mentally off. I will discuss this with the Psychiatry, Neurology, and Infectious Disease. ASSESSMENT: Change in mentation, diabetes, schizophrenia, bronchitis, hypertension, urinary tract infection, high lipids, and she is a smoker. Avelino Antoine DO
[2017-03-29] MEDS: Insulin Reg-MEDIUM-Coverage SC SCH ×3 (10:55→17:55)
[2017-03-29] MEDS: Pantoprazole 40 mg EC Tab PO SCH (11:40)
[2017-03-29] MEDS: Levothyroxine 25 MCG TAB PO SCH (11:41)
[2017-03-29] MEDS: Amoxicillin-Clav 500-125 mg Tab PO SCH ×2 (11:41→15:59)
--- NOTE | 2017-03-29 17:23 | PCM.PYCHPN ---
Psychiatric Progress Note - Psychiatric Progress Note Patient seen today, length of contact: 30min Patient Chief Complaint: "he came over, you know, that fly..., I was swiping and dusting..." Problems Identified/Issues Discussed: this program writer tried to discuss suicide/ homicide prevention, past psychiatric h/o , current psychiatric symptoms, medical problems, risk/benefits and alternatives of medications, medications compliance, coping strategies, substance abuse h/o, relapse prevention, importance of follow up with psychiatrist and therapist, discharge plan. bt pt is very disorganized Medical Problems: 03/18/17 07:20 03/18/17 07:20 Lab Results 03/18/17 08:02: POC Glucose (mg/dL) 164 H 03/18/17 07:20: Hemoglobin A1c 7.9 H D 03/18/17 07:20: TSH 3rd Generation 1.36 03/18/17 07:20: Sodium 143, Potassium 3.9, Chloride 105, Carbon Dioxide 29, Anion Gap 13, BUN 13, Creatinine 0.8, Est GFR ( Amer) > 60, Est GFR (Non- Af Amer) > 60, Random Glucose 193 H, Calcium 9.9, Total Bilirubin 1.0, AST 42 H D, ALT 41, Alkaline Phosphatase 101, Total Protein 7.9, Albumin 4.3, Globulin 3.6, Albumin/Globulin Ratio 1.2 03/18/17 07:20: WBC 7.7, RBC 5.28, Hgb 16.4 H, Hct 48.7 H, MCV 92.2, MCH 31.1, MCHC 33.7, RDW 13.9, Plt Count 199, MPV 12.0 H 03/17/17 21:52: POC Glucose (mg/dL) 150 H 03/17/17 06:45: TSH 3rd Generation 0.45 L 03/17/17 06:45: Fasting Glucose 165 H, Triglycerides 469 H, Cholesterol 306 H, LDL Cholesterol Direct 182 H, HDL Cholesterol 42 03/16/17 21:30: POC Glucose (mg/dL) 163 H 03/15/17 18:37: WBC 6.6 D, RBC 4.82, Hgb 15.0, Hct 44.0, MCV 91.3, MCH 31.1, MCHC 34.1, RDW 13.8, Plt Count 210, MPV 11.9 H, Gran % 55.6, Lymph % (Auto) 34.2 , [place] % (Auto) 7.4 H, Eos % (Auto) 2.6, Baso % (Auto) 0.2, Gran # 3.66, Lymph # 2.3, [place] # 0.5, Eos # 0.2, Baso # 0.01 03/15/17 18:37: Alcohol, Quantitative < 10 03/15/17 18:37: Salicylates < 1 L, Acetaminophen < 10.0 L 03/15/17 18:37: Sodium 141, Potassium 3.3 L, Chloride 104, Carbon Dioxide 29, Anion Gap 11, BUN 11, Creatinine 0.7, Est GFR ( Amer) > 60, Est GFR (Non- Af Amer) > 60, Random Glucose 224 H, Calcium 9.4, Magnesium 1.8, Total Bilirubin 0.6, AST 33, ALT 52, Alkaline Phosphatase 97, Total Protein 7.4, Albumin 4.1, Globulin 3.3, Albumin/Globulin Ratio 1.3 Vital Signs Temp Pulse Resp BP Pulse Ox 03/18/17 08:51 89 141/96 H 03/18/17 07:00 97.6 F 89 16 141/96 H 03/18/17 06:38 97.6 F 89 16 141/96 H 03/17/17 15:43 88 160/109 H 03/16/17 21:53 20 03/16/17 18:04 100 H 20 158/104 H 95 03/16/17 12:20 91 H 19 117/69 95 03/16/17 11:10 101 H 174/104 H 03/16/17 09:51 187/101 H 03/16/17 09:41 80 19 97 03/16/17 06:34 92 H 18 142/94 H 96 03/16/17 03:03 98 H 17 139/98 H 95 03/15/17 23:49 86 158/86 H 03/15/17 21:00 88 18 162/8 H 99 03/15/17 19:18 98.2 F 115 H 18 185/119 H 98 pt was seen by medical team pt is on abx for bronchitis pt was confused today, CBC and CMP wnl Laboratory Results - last 24 hr 03/23/17 03/23/17 03/23/17 16:27 16:27 16:30 POC Glucose (mg/dL) 134 H Urine Color Dark yellow Urine Appearance Clear Urine pH 6.0 Ur Specific [place] 1.015 Urine Protein Negative Urine Glucose (UA) Negative Urine Ketones Trace H Urine Blood Negative Urine Nitrate Negative Urine Bilirubin Negative Urine Urobilinogen 0.2 Ur Leukocyte Esterase Negative Urine Opiates Screen Negative Urine Methadone Screen Negative Ur Barbiturates Screen Negative Ur Phencyclidine Scrn Negative Ur Amphetamines Screen Negative U Benzodiazepines Scrn Negative U Oth Cocaine Metabols Negative U Cannabinoids Screen Negative 03/23/17 03/24/17 03/24/17 21:51 07:45 11:45 POC Glucose (mg/dL) 163 H 183 H 205 H Urine Color Urine Appearance Urine pH Ur Specific [place] Urine Protein Urine Glucose (UA) Urine Ketones Urine Blood Urine Nitrate Urine Bilirubin Urine Urobilinogen Ur Leukocyte Esterase Urine Opiates Screen Urine Methadone Screen Ur Barbiturates Screen Ur Phencyclidine Scrn Ur Amphetamines Screen U Benzodiazepines Scrn U Oth Cocaine Metabols U Cannabinoids Screen Laboratory Results - last 24 hr 03/24/17 03/24/17 03/25/17 16:25 21:22 03:48 WBC RBC Hgb Hct MCV MCH MCHC RDW Plt Count MPV Sodium Potassium Chloride Carbon Dioxide Anion Gap BUN Creatinine Est GFR ( Amer) Est GFR (Non-Af Amer) POC Glucose (mg/dL) 116 H 174 H 140 H Random Glucose Calcium Total Bilirubin AST ALT Alkaline Phosphatase Total Protein Albumin Globulin Albumin/Globulin Ratio Urine Color Urine Appearance Urine pH Ur Specific [place] Urine Protein Urine Glucose (UA) Urine Ketones Urine Blood Urine Nitrate Urine Bilirubin Urine Urobilinogen Ur Leukocyte Esterase Urine RBC Urine WBC Ur Epithelial Cells Urine Bacteria 03/25/17 03/25/17 03/25/17 08:09 09:15 09:15 WBC 9.5 D RBC 4.71 Hgb 14.6 Hct 43.3 MCV 91.9 MCH 31.0 MCHC 33.7 RDW 13.5 Plt Count 247 MPV 11.7 H Sodium 141 Potassium 4.0 Chloride 102 Carbon Dioxide 27 Anion Gap 16 BUN 27 H Creatinine 0.9 Est GFR ( Amer) > 60 Est GFR (Non-Af Amer) > 60 POC Glucose (mg/dL) 144 H Random Glucose 140 H Calcium 10.4 Total Bilirubin 1.1 AST 32 ALT 54 Alkaline Phosphatase 79 Total Protein 8.0 Albumin 4.6 Globulin 3.3 Albumin/Globulin Ratio 1.4 Urine Color Urine Appearance Urine pH Ur Specific [place] Urine Protein Urine Glucose (UA) Urine Ketones Urine Blood Urine Nitrate Urine Bilirubin Urine Urobilinogen Ur Leukocyte Esterase Urine RBC Urine WBC Ur Epithelial Cells Urine Bacteria 03/25/17 03/25/17 12:00 12:06 WBC RBC Hgb Hct MCV MCH MCHC RDW Plt Count MPV Sodium Potassium Chloride Carbon Dioxide Anion Gap BUN Creatinine Est GFR ( Amer) Est GFR (Non-Af Amer) POC Glucose (mg/dL) 123 H Random Glucose Calcium Total Bilirubin AST ALT Alkaline Phosphatase Total Protein Albumin Globulin Albumin/Globulin Ratio Urine Color Dark yellow Urine Appearance Clear Urine pH 6.0 Ur Specific [place] 1.015 Urine Protein Negative Urine Glucose (UA) Negative Urine Ketones Trace H Urine Blood Negative Urine Nitrate Negative Urine Bilirubin Negative Urine Urobilinogen 0.2 Ur Leukocyte Esterase Small H Urine RBC 0 - 2 Urine WBC 5 - 10 Ur Epithelial Cells 6 - 8 Urine Bacteria Many Temp Pulse Resp BP Pulse Ox 98.0 F 110 H 20 131/69 96 03/25/17 06:08 03/25/17 10:26 03/25/17 06:08 03/25/17 10:26 03/25/17 06:08 Temp Pulse Resp BP Pulse Ox 97.5 F L 78 17 134/87 96 03/26/17 07:00 03/26/17 09:00 03/26/17 07:00 03/26/17 10:12 03/26/17 07:00 Laboratory Results - last 24 hr 03/25/17 03/25/17 03/25/17 12:00 16:41 21:47 POC Glucose (mg/dL) 138 H 183 H Urine RBC 0 - 2 Urine WBC 5 - 10 Ur Epithelial Cells 6 - 8 Urine Bacteria Many 03/26/17 03/26/17 07:51 11:42 POC Glucose (mg/dL) 156 H 165 H Urine RBC Urine WBC Ur Epithelial Cells Urine Bacteria Temp Pulse Resp BP Pulse Ox 97.4 F L 88 20 122/42 L 96 03/29/17 07:57 03/29/17 11:38 03/29/17 07:57 03/29/17 11:40 03/26/17 07:00 Laboratory Results - last 24 hr 03/28/17 03/29/17 03/29/17 21:24 06:30 06:30 WBC 8.3 RBC 4.40 Hgb 13.5 Hct 40.4 MCV 91.8 MCH 30.7 MCHC 33.4 RDW 13.2 Plt Count 230 MPV 11.5 H Sodium 138 Potassium 3.8 Chloride 102 Carbon Dioxide 25 Anion Gap 15 BUN 19 Creatinine 0.8 Est GFR ( Amer) > 60 Est GFR (Non-Af Amer) > 60 POC Glucose (mg/dL) 188 H Random Glucose 131 H Calcium 10.1 Total Bilirubin 0.9 AST 27 ALT 42 Alkaline Phosphatase 70 Total Protein 7.4 Albumin 4.4 Globulin 3.0 Albumin/Globulin Ratio 1.5 03/29/17 03/29/17 03/29/17 07:31 11:16 15:58 WBC RBC Hgb Hct MCV MCH MCHC RDW Plt Count MPV Sodium Potassium Chloride Carbon Dioxide Anion Gap BUN Creatinine Est GFR ( Amer) Est GFR (Non-Af Amer) POC Glucose (mg/dL) 153 H 108 135 H Random Glucose Calcium Total Bilirubin AST ALT Alkaline Phosphatase Total Protein Albumin Globulin Albumin/Globulin Ratio Diagnostic Results: 03/18/17 07:20 03/18/17 07:20 Lab Results 03/19/17 11:57: POC Glucose (mg/dL) 158 H 03/19/17 08:07: POC Glucose (mg/dL) 138 H 03/18/17 21:40: POC Glucose (mg/dL) 151 H 03/18/17 16:15: POC Glucose (mg/dL) 161 H 03/18/17 08:02: POC Glucose (mg/dL) 164 H 03/18/17 07:20: Hemoglobin A1c 7.9 H D 03/18/17 07:20: TSH 3rd Generation 1.36 03/18/17 07:20: Sodium 143, Potassium 3.9, Chloride 105, Carbon Dioxide 29, Anion Gap 13, BUN 13, Creatinine 0.8, Est GFR ( Amer) > 60, Est GFR (Non- Af Amer) > 60, Random Glucose 193 H, Calcium 9.9, Total Bilirubin 1.0, AST 42 H D, ALT 41, Alkaline Phosphatase 101, Total Protein 7.9, Albumin 4.3, Globulin 3.6, Albumin/Globulin Ratio 1.2 03/18/17 07:20: WBC 7.7, RBC 5.28, Hgb 16.4 H, Hct 48.7 H, MCV 92.2, MCH 31.1, MCHC 33.7, RDW 13.9, Plt Count 199, MPV 12.0 H 03/17/17 21:52: POC Glucose (mg/dL) 150 H 03/17/17 06:45: TSH 3rd Generation 0.45 L 03/17/17 06:45: Fasting Glucose 165 H, Triglycerides 469 H, Cholesterol 306 H, LDL Cholesterol Direct 182 H, HDL Cholesterol 42 03/16/17 21:30: POC Glucose (mg/dL) 163 H 03/15/17 18:37: WBC 6.6 D, RBC 4.82, Hgb 15.0, Hct 44.0, MCV 91.3, MCH 31.1, MCHC 34.1, RDW 13.8, Plt Count 210, MPV 11.9 H, Gran % 55.6, Lymph % (Auto) 34.2 , [place] % (Auto) 7.4 H, Eos % (Auto) 2.6, Baso % (Auto) 0.2, Gran # 3.66, Lymph # 2.3, [place] # 0.5, Eos # 0.2, Baso # 0.01 03/15/17 18:37: Alcohol, Quantitative < 10 03/15/17 18:37: Salicylates < 1 L, Acetaminophen < 10.0 L 03/15/17 18:37: Sodium 141, Potassium 3.3 L, Chloride 104, Carbon Dioxide 29, Anion Gap 11, BUN 11, Creatinine 0.7, Est GFR ( Amer) > 60, Est GFR (Non- Af Amer) > 60, Random Glucose 224 H, Calcium 9.4, Magnesium 1.8, Total Bilirubin 0.6, AST 33, ALT 52, Alkaline Phosphatase 97, Total Protein 7.4, Albumin 4.1, Globulin 3.3, Albumin/Globulin Ratio 1.3 Vital Signs Temp Pulse Resp BP Pulse Ox 03/19/17 07:00 144/103 H 03/19/17 06:57 98.7 F 91 H 16 144/103 H 03/18/17 16:00 108 H 128/81 03/18/17 08:51 89 141/96 H 03/18/17 07:00 97.6 F 89 16 141/96 H 03/18/17 06:38 97.6 F 89 16 141/96 H 03/17/17 15:43 88 160/109 H 03/16/17 21:53 20 03/16/17 18:04 100 H 20 158/104 H 95 03/16/17 12:20 91 H 19 117/69 95 03/16/17 11:10 101 H 174/104 H 03/16/17 09:51 187/101 H 03/16/17 09:41 80 19 97 03/16/17 06:34 92 H 18 142/94 H 96 03/16/17 03:03 98 H 17 139/98 H 95 03/15/17 23:49 86 158/86 H 03/15/17 21:00 88 18 162/8 H 99 03/15/17 19:18 98.2 F 115 H 18 185/119 H 98 Laboratory Results - last 24 hr 03/22/17 03/22/17 03/23/17 17:03 21:26 07:24 WBC RBC Hgb Hct MCV MCH MCHC RDW Plt Count MPV Gran % Lymph % (Auto) [place] % (Auto) Eos % (Auto) Baso % (Auto) Gran # Lymph # [place] # Eos # Baso # Sodium Potassium Chloride Carbon Dioxide Anion Gap BUN Creatinine Est GFR ( Amer) Est GFR (Non-Af Amer) POC Glucose (mg/dL) 174 H 141 H 126 H Random Glucose Calcium Total Bilirubin AST ALT Alkaline Phosphatase Total Protein Albumin Globulin Albumin/Globulin Ratio 03/23/17 03/23/17 03/23/17 09:00 09:00 11:12 WBC 7.3 RBC 4.61 Hgb 14.2 D Hct 42.7 MCV 92.6 MCH 30.8 MCHC 33.3 RDW 13.5 Plt Count 234 MPV 11.8 H Gran % 78.0 H Lymph % (Auto) 15.6 L [place] % (Auto) 5.6 Eos % (Auto) 0.5 L Baso % (Auto) 0.3 Gran # 5.68 Lymph # 1.1 L [place] # 0.4 Eos # 0.0 Baso # 0.02 Sodium 140 Potassium 4.1 Chloride 102 Carbon Dioxide 27 Anion Gap 14 BUN 20 Creatinine 0.7 Est GFR ( Amer) > 60 Est GFR (Non-Af Amer) > 60 POC Glucose (mg/dL) 189 H Random Glucose 190 H Calcium 9.9 Total Bilirubin 0.8 AST 28 ALT 38 Alkaline Phosphatase 67 Total Protein 7.0 Albumin 4.3 Globulin 2.7 Albumin/Globulin Ratio 1.6 DSM 5 Symptoms Update: Pt is a 61 y/o (correction to my previous notes) female reported h/o schizophrenia, not known h/o suicidal attempts, pt was brought in to the hospital for evaluation of disorganized, agitated, paranoid behavior, pt was paranoid and delusional that about 50 women in her apartment having sex with each other, pt also was paranoid that her boyfriend (correction to my previous note) is cheating on her. pt was agitated in ED, needed to be medicated with IM ativan+geodon+haldol, pt required further evaluation and stabilization, pt was admitted under voluntary status. pt was seen and examined today t the treatment team room, patient presented to be disorganized, some psychomotor retardation, speech is incoherent, patient was making statements which were not related to the questions being asked, medical team so patient, recommended infectious disease consultation, consult was called. Patient was making statements "as you know he came over, that fly, I will swiping and dusting". MMSE: pt is not sure what is the date, was aware the state and the hospital, was able to name an objects. pt is paranoid, disorganized, still, but there is no aggression or agitation, pt is on 1:1 for disorganized thoughts and behavior. pt tolerated meds well, no side effects observed or reported will hold psychotropic meds for now Impression: r/o schzophrenia r/o delirium Medication Change: Yes (d/c thorazine, d/c haldol) Medical Record Reviewed: Yes Mental Status Examination - Cognitive Function Orientation: Person, Place Memory: Impaired Attention: Poor Concentration: Poor Association: Loose - Mood Mood: Other ( "okay".) - Affect Affect: Flat (Affect is a little bit more reactive and more spontaneous) - Speech Speech: Loud (at times) - Formal Thought Process Formal Thought Process: Delusions (not noted today), Paranoia (not noted today) , Loosening of associations, Other (scattered, preoccupied and vague) - Suicidal Ideation Suicidal Ideation: No - Homicidal Ideation Homicidal Ideation: No Goal/Treatment Plan - Goal/Treatment Plan Need for Continued Stay: Remain at risks for inpatient hospitalization, Severe depression anxiety, Discharge may exacerbated symptoms, Severe functional impairment Progress Toward Problem(s) and Goals/Treatment Plan: 1:1 observation will be continued augmentin was started 500mg po bid as per medical advise ID consult called Milieu/structure/supportive therapy Medical consult appreciated, see medical team note for more detailed info consultation for discharge plan and social issues Med management risperdal d.c thorazine is on hold geodon prn pt was on invega sustenna 165mg IM q4 weeks (confirmed by SW), pt missed her shot on March 10, last dose was 03/23/17 next dose should be given 04/07/17 ativan 1mg po tid ambien 10mg po hs prn cymbalta 60mg po daily for depression pt is seen by medical team on daily basis Family involvement Follow up on labs Will monitor closely evaluation for d/c planning Pt was educated about risk/benefits and alternatives of medications, coping strategies (safety plan, suicide prevention), relapse prevention, importance of follow up with psychiatrist and therapist, stay away from drugs/alcohol/smoking Estimated Date of D/C: 04/02/17
--- NOTE | 2017-03-29 17:55 | CP.PCM.CON ---
History of Present Illness - History of Present Illness History of Present Illness: 61 year old female with PMH of schizophrenia, HTN, hypothyroidism, history of bronchitis, obesity with BMI 38 was initially admitted in the PSych unit because of disorganized behavior and paranoid thoughts about her cheating on her. She was also being seen by medicine to evaluate for altered mental status and Infectious Diseases consult is requested to evaluate for the possibility of sepsis and infection in this patient. She is not complaining of fever or chills, no nausea or vomiting, no headache or dizziness, no abdominal pain, no diarrhea, no dysuria, no flank pain, no suprapubic pain, no bleeding, no sore throat, no cough or colds, no shortness of breath , no chest pain. Review of Systems - Review of Systems All systems: reviewed and no additional remarkable complaints except (as per HPI ) Past Patient History - Infectious Disease Hx of Infectious Diseases: None - Past Medical History & Family History Past Medical History?: Yes - Past Social History Smoking Status: Never Smoked - CARDIAC Hx Cardiac Disorders: Yes Hx Congestive Heart Failure: Yes Hx Hypertension: Yes - PULMONARY Hx Respiratory Disorders: Yes Hx Asthma: Yes - NEUROLOGICAL Hx Neurological Disorder: No - HEENT Hx HEENT Problems: No - RENAL Hx Chronic Kidney Disease: No - ENDOCRINE/METABOLIC Hx Endocrine Disorders: Yes Hx Diabetes Mellitus Type 2: Yes Hx Hypothyroidism: Yes - HEMATOLOGICAL/ONCOLOGICAL Hx Blood Disorders: No - INTEGUMENTARY Hx Dermatological Problems: No - MUSCULOSKELETAL/RHEUMATOLOGICAL Hx Falls: No - GASTROINTESTINAL Hx Gastrointestinal Disorders: No - GENITOURINARY/GYNECOLOGICAL Hx Genitourinary Disorders: No - PSYCHIATRIC Hx Psychophysiologic Disorder: Yes Hx Anxiety: Yes Hx Bipolar Disorder: Yes Hx Depression: Yes Hx Substance Use: No - SURGICAL HISTORY Hx Cardiac Catheterization: Yes Hx Section: Yes Hx Cholecystectomy: Yes Hx Orthopedic Surgery: Yes (Bilateral ankle reconstruction, back surgery) - ANESTHESIA Hx Anesthesia: No Meds Allergies/Adverse Reactions: Allergies Allergy/AdvReac Type Severity Reaction Status Date / Time No Known Allergies Allergy Verified 03/17/17 00:40 - Medications Medications: Current Medications Acetaminophen (Tylenol 325mg Tab) 650 mg PO Q4H PRN PRN Reason: Pain, Mild (1-3) Last Admin: 03/17/17 09:21 Dose: 650 mg Al Hydrox/Mg Hydrox/Simethicone (Maalox Plus 30 Ml) 30 ml PO DAILY PRN PRN Reason: Upset Stomach Amlodipine Besylate (Norvasc) 10 mg PO DAILY [facility] Last Admin: 03/28/17 09:43 Dose: 10 mg Amoxicillin/Clavulanate Potassium (Augmentin 500 Mg-125 Mg Tab) 1 tab PO BID [facility] PRN Reason: Protocol Stop: 03/30/17 20:00 Last Admin: 03/28/17 17:26 Dose: 1 tab Aspirin (Ecotrin) 81 mg PO DAILY [facility] Last Admin: 03/28/17 09:49 Dose: 81 mg Benztropine Mesylate (Cogentin) 1 mg PO AMHS [facility] Last Admin: 03/28/17 21:11 Dose: 1 mg Chlorpromazine (Thorazine) 50 mg PO AMHS [facility] PRN Reason: Protocol Last Admin: 03/28/17 21:12 Dose: 50 mg Chlorpromazine (Thorazine) 50 mg PO 1600 [facility] PRN Reason: Protocol Last Admin: 03/28/17 16:50 Dose: 50 mg Duloxetine HCl (Cymbalta) 60 mg PO DAILY [facility] Last Admin: 03/28/17 09:46 Dose: 60 mg Haloperidol Lactate (Haldol) 3 mg IM Q4 PRN; Protocol PRN Reason: Agitation Last Admin: 03/29/17 03:39 Dose: 3 mg Hydrochlorothiazide (Microzide) 12.5 mg PO DAILY [facility] Last Admin: 03/28/17 09:40 Dose: 12.5 mg Insulin Human Regular (Humulin R Med) 0 units SC ACHS [facility] PRN Reason: Protocol Last Admin: 03/28/17 22:13 Dose: Not Given Levothyroxine Sodium (Synthroid) 25 mcg PO ACB [facility] Last Admin: 03/28/17 09:46 Dose: 25 mcg Lorazepam (Ativan) 1 mg PO TID [facility] PRN Reason: Protocol Last Admin: 03/28/17 17:26 Dose: 1 mg Lorazepam (Ativan) 1 mg IM Q4H PRN; Protocol PRN Reason: Anxiety Last Admin: 03/29/17 03:37 Dose: 1 mg Losartan Potassium (Cozaar) 100 mg PO DAILY [facility] Last Admin: 03/28/17 09:44 Dose: 100 mg Magnesium Hydroxide (Milk Of Magnesia) 30 ml PO DAILY PRN PRN Reason: Constipation Metformin HCl (Glucophage) 500 mg PO BID [facility] Last Admin: 03/28/17 17:26 Dose: 500 mg Metoprolol Tartrate (Lopressor) 12.5 mg PO BRKDIN [facility] Last Admin: 03/28/17 17:25 Dose: 12.5 mg Nicotine (Nicoderm Cq) 1 patch TD DAILY [facility] Last Admin: 03/28/17 09:43 Dose: 1 patch Pantoprazole Sodium (Protonix Ec Tab) 40 mg PO ACB [facility] Last Admin: 03/28/17 09:48 Dose: 40 mg Ziprasidone (Geodon Inj) 20 mg IM Q8H PRN; Protocol PRN Reason: severe agitation Last Admin: 03/29/17 00:24 Dose: 20 mg Zolpidem Tartrate (Ambien) 10 mg PO HS PRN; Protocol PRN Reason: Insomnia Last Admin: 03/28/17 21:14 Dose: 10 mg Physical Exam - Constitutional Appears: Non-toxic, No Acute Distress - Head Exam Head Exam: NORMAL INSPECTION - Neck Exam Neck exam: Negative for: Meningismus - Respiratory Exam Respiratory Exam: Decreased Breath Sounds. absent: Rales - Cardiovascular Exam Cardiovascular Exam: +S1, +S2 - GI/Abdominal Exam GI & Abdominal Exam: Soft. absent: Tenderness Results - Vital Signs Recent Vital Signs: Last Vital Signs Temp 97.4 F L 03/29/17 07:57 Pulse 88 03/29/17 07:57 Resp 20 03/29/17 07:57 BP 122/46 L 03/29/17 07:57 Pulse Ox 96 03/26/17 07:00 - Labs Result Diagrams: 03/29/17 06:30 03/29/17 06:30 Labs: Laboratory Results - last 24 hr 03/28/17 03/28/17 03/28/17 11:24 16:17 21:24 WBC RBC Hgb Hct MCV MCH MCHC RDW Plt Count MPV Sodium Potassium Chloride Carbon Dioxide Anion Gap BUN Creatinine Est GFR ( Amer) Est GFR (Non-Af Amer) POC Glucose (mg/dL) 158 H 127 H 188 H Random Glucose Calcium Total Bilirubin AST ALT Alkaline Phosphatase Total Protein Albumin Globulin Albumin/Globulin Ratio 03/29/17 03/29/17 03/29/17 06:30 06:30 07:31 WBC 8.3 RBC 4.40 Hgb 13.5 Hct 40.4 MCV 91.8 MCH 30.7 MCHC 33.4 RDW 13.2 Plt Count 230 MPV 11.5 H Sodium 138 Potassium 3.8 Chloride 102 Carbon Dioxide 25 Anion Gap 15 BUN 19 Creatinine 0.8 Est GFR ( Amer) > 60 Est GFR (Non-Af Amer) > 60 POC Glucose (mg/dL) 153 H Random Glucose 131 H Calcium 10.1 Total Bilirubin 0.9 AST 27 ALT 42 Alkaline Phosphatase 70 Total Protein 7.4 Albumin 4.4 Globulin 3.0 Albumin/Globulin Ratio 1.5 Assessment & Plan - Assessment and Plan (Free Text) Plan: Assessment altered mental status, probably delirium associated with schizophrenia; so far no evidence of infection schizophrenia HTN hypothyroidism history of bronchitis obesity with BMI 38 Plan Will monitor off antibiotics; follow up blood, urine cx, PCT; follow up Neurology evaluation will monitor clinically
[2017-03-30 08:10] LABS: HEMATOCRIT 41.9 % (36.0-48.0); MEAN CELL VOLUME 92.5 fl (80.0-105.0); MEAN CORPUSCULAR HEMOGLOBIN 30.7 pg (25.0-35.0); MEAN CORPUSCULAR HGB CONC 33.2 g/dl (31.0-37.0); MEAN PLATELET VOLUME 11.5 fl (7.0-11.0); RED CELL DISTRIBUTION WIDTH 13.1 % (11.5-14.5); WHITE BLOOD COUNT 6.5 10^3/ul (4.5-11.0)
[2017-03-30 08:20] LABS: ALB/GLOB RATIO 1.4 (1.1-1.8); ALKALINE PHOSPHATASE 70 U/L (38-126); ALT/SGPT 47 U/L (7-56); AST/SGOT 28 U/L (14-36); BILIRUBIN,TOTAL 0.5 mg/dL (0.2-1.3); BLOOD UREA NITROGEN 20 mg/dL (7-21); CALCIUM 9.8 mg/dL (8.4-10.5); CARBON DIOXIDE 27 mmol/L (21-33); CHLORIDE 102 mmol/L (98-107); GFR AFRICAN-AMERICAN > 60; GLUCOSE,RANDOM 149 mg/dL (70-110); POTASSIUM 3.8 mmol/L (3.6-5.0); SODIUM 140 mmol/L (132-148); TOTAL PROTEIN 7.6 g/dL (5.8-8.3)
[2017-03-30] MEDS: Insulin Reg-MEDIUM-Coverage SC SCH ×5 (09:33→21:41)
[2017-03-30] MEDS: Pantoprazole 40 mg EC Tab PO SCH (09:38)
[2017-03-30] MEDS: Levothyroxine 25 MCG TAB PO SCH (09:38)
[2017-03-30] MEDS ORDERED: Bisacodyl 5mg EC Tab PO ONE (10:10)
--- NOTE | 2017-03-30 11:55 | PN ---
DATE: SUBJECTIVE: I saw Sena in group. I took her out of the group and took for a walk. She is much better than the day before. She knows who I was. She knows where she is. She is clean. She is neat. She is organized. She understood what was going on. For the last 3 days, she was out of it, today it is brand new, 180 turn. PHYSICAL EXAMINATION: VITAL SIGNS: Temperature 98.4, pulse 93, blood pressure 126/92, and respiratory rate 20. HEENT: Head is atraumatic and normocephalic. Throat is moist. NECK: Supple. HEART: Regular rate. LUNGS: Clear to auscultation. ABDOMEN: Soft, obese, and nontender. Positive bowel sounds. EXTREMITIES: No edema. LABORATORY DATA: She has white count of 6.5, hemoglobin of 13.9, hematocrit of 41.9, and platelets of 261. Sodium 140, potassium 3.8, BUN 20, creatinine 0.8, GFR is greater than 60, sugars 149, and calcium 9.8. Total bilirubin 0.5, AST 28, ALT 47, alkaline phosphatase 60, total protein is 7.6, and albumin is 4.4. Urine with many, she is on Augmentin for this. MEDICATIONS: She is on Ambien, Ativan, Cogentin, Cozaar, Cymbalta, Ecotrin, Geodon, Glucophage, insulin, Lopressor, Maalox, Microzide, milk of magnesia, Nicoderm, Norvasc, Protonix, Synthroid, and Tylenol. ASSESSMENT AND PLAN: She was seen by Infectious Disease, which I called in because she had a change in mentation and their opinion is altered mental status, probably delirium associated with schizophrenia. No evidence of infection. I had to agree with that. She was much better today. Adjustments from Psychiatry with the medications. I discussed with the psychiatrist at length. We will continue with aggressive treatment and care where she is back mentally. will follow. Avelino Antoine DO [facility]
--- NOTE | 2017-03-30 15:30 | PCM.PYCHPN ---
Psychiatric Progress Note - Psychiatric Progress Note Patient seen today, length of contact: 30min Patient Chief Complaint: "I am better, I feel okay.." Problems Identified/Issues Discussed: this content writer tried to discuss suicide/ homicide prevention, past psychiatric h/o , current psychiatric symptoms, medical problems, risk/benefits and alternatives of medications, medications compliance, coping strategies, substance abuse h/o, relapse prevention, importance of follow up with psychiatrist and therapist, discharge plan. bt pt is very disorganized Medical Problems: 03/18/17 07:20 03/18/17 07:20 Lab Results 03/18/17 08:02: POC Glucose (mg/dL) 164 H 03/18/17 07:20: Hemoglobin A1c 7.9 H D 03/18/17 07:20: TSH 3rd Generation 1.36 03/18/17 07:20: Sodium 143, Potassium 3.9, Chloride 105, Carbon Dioxide 29, Anion Gap 13, BUN 13, Creatinine 0.8, Est GFR ( Amer) > 60, Est GFR (Non- Af Amer) > 60, Random Glucose 193 H, Calcium 9.9, Total Bilirubin 1.0, AST 42 H D, ALT 41, Alkaline Phosphatase 101, Total Protein 7.9, Albumin 4.3, Globulin 3.6, Albumin/Globulin Ratio 1.2 03/18/17 07:20: WBC 7.7, RBC 5.28, Hgb 16.4 H, Hct 48.7 H, MCV 92.2, MCH 31.1, MCHC 33.7, RDW 13.9, Plt Count 199, MPV 12.0 H 03/17/17 21:52: POC Glucose (mg/dL) 150 H 03/17/17 06:45: TSH 3rd Generation 0.45 L 03/17/17 06:45: Fasting Glucose 165 H, Triglycerides 469 H, Cholesterol 306 H, LDL Cholesterol Direct 182 H, HDL Cholesterol 42 03/16/17 21:30: POC Glucose (mg/dL) 163 H 03/15/17 18:37: WBC 6.6 D, RBC 4.82, Hgb 15.0, Hct 44.0, MCV 91.3, MCH 31.1, MCHC 34.1, RDW 13.8, Plt Count 210, MPV 11.9 H, Gran % 55.6, Lymph % (Auto) 34.2 , Carbon % (Auto) 7.4 H, Eos % (Auto) 2.6, Baso % (Auto) 0.2, Gran # 3.66, Lymph # 2.3, Carbon # 0.5, Eos # 0.2, Baso # 0.01 03/15/17 18:37: Alcohol, Quantitative < 10 03/15/17 18:37: Salicylates < 1 L, Acetaminophen < 10.0 L 03/15/17 18:37: Sodium 141, Potassium 3.3 L, Chloride 104, Carbon Dioxide 29, Anion Gap 11, BUN 11, Creatinine 0.7, Est GFR ( Amer) > 60, Est GFR (Non- Af Amer) > 60, Random Glucose 224 H, Calcium 9.4, Magnesium 1.8, Total Bilirubin 0.6, AST 33, ALT 52, Alkaline Phosphatase 97, Total Protein 7.4, Albumin 4.1, Globulin 3.3, Albumin/Globulin Ratio 1.3 Vital Signs Temp Pulse Resp BP Pulse Ox 03/18/17 08:51 89 141/96 H 03/18/17 07:00 97.6 F 89 16 141/96 H 03/18/17 06:38 97.6 F 89 16 141/96 H 03/17/17 15:43 88 160/109 H 03/16/17 21:53 20 03/16/17 18:04 100 H 20 158/104 H 95 03/16/17 12:20 91 H 19 117/69 95 03/16/17 11:10 101 H 174/104 H 03/16/17 09:51 187/101 H 03/16/17 09:41 80 19 97 03/16/17 06:34 92 H 18 142/94 H 96 03/16/17 03:03 98 H 17 139/98 H 95 03/15/17 23:49 86 158/86 H 03/15/17 21:00 88 18 162/8 H 99 03/15/17 19:18 98.2 F 115 H 18 185/119 H 98 pt was seen by medical team pt is on abx for bronchitis pt was confused today, CBC and CMP wnl Laboratory Results - last 24 hr 03/23/17 03/23/17 03/23/17 16:27 16:27 16:30 POC Glucose (mg/dL) 134 H Urine Color Dark yellow Urine Appearance Clear Urine pH 6.0 Ur Specific [place] 1.015 Urine Protein Negative Urine Glucose (UA) Negative Urine Ketones Trace H Urine Blood Negative Urine Nitrate Negative Urine Bilirubin Negative Urine Urobilinogen 0.2 Ur Leukocyte Esterase Negative Urine Opiates Screen Negative Urine Methadone Screen Negative Ur Barbiturates Screen Negative Ur Phencyclidine Scrn Negative Ur Amphetamines Screen Negative U Benzodiazepines Scrn Negative U Oth Cocaine Metabols Negative U Cannabinoids Screen Negative 03/23/17 03/24/17 03/24/17 21:51 07:45 11:45 POC Glucose (mg/dL) 163 H 183 H 205 H Urine Color Urine Appearance Urine pH Ur Specific [place] Urine Protein Urine Glucose (UA) Urine Ketones Urine Blood Urine Nitrate Urine Bilirubin Urine Urobilinogen Ur Leukocyte Esterase Urine Opiates Screen Urine Methadone Screen Ur Barbiturates Screen Ur Phencyclidine Scrn Ur Amphetamines Screen U Benzodiazepines Scrn U Oth Cocaine Metabols U Cannabinoids Screen Laboratory Results - last 24 hr 03/24/17 03/24/17 03/25/17 16:25 21:22 03:48 WBC RBC Hgb Hct MCV MCH MCHC RDW Plt Count MPV Sodium Potassium Chloride Carbon Dioxide Anion Gap BUN Creatinine Est GFR ( Amer) Est GFR (Non-Af Amer) POC Glucose (mg/dL) 116 H 174 H 140 H Random Glucose Calcium Total Bilirubin AST ALT Alkaline Phosphatase Total Protein Albumin Globulin Albumin/Globulin Ratio Urine Color Urine Appearance Urine pH Ur Specific [place] Urine Protein Urine Glucose (UA) Urine Ketones Urine Blood Urine Nitrate Urine Bilirubin Urine Urobilinogen Ur Leukocyte Esterase Urine RBC Urine WBC Ur Epithelial Cells Urine Bacteria 03/25/17 03/25/17 03/25/17 08:09 09:15 09:15 WBC 9.5 D RBC 4.71 Hgb 14.6 Hct 43.3 MCV 91.9 MCH 31.0 MCHC 33.7 RDW 13.5 Plt Count 247 MPV 11.7 H Sodium 141 Potassium 4.0 Chloride 102 Carbon Dioxide 27 Anion Gap 16 BUN 27 H Creatinine 0.9 Est GFR ( Amer) > 60 Est GFR (Non-Af Amer) > 60 POC Glucose (mg/dL) 144 H Random Glucose 140 H Calcium 10.4 Total Bilirubin 1.1 AST 32 ALT 54 Alkaline Phosphatase 79 Total Protein 8.0 Albumin 4.6 Globulin 3.3 Albumin/Globulin Ratio 1.4 Urine Color Urine Appearance Urine pH Ur Specific [place] Urine Protein Urine Glucose (UA) Urine Ketones Urine Blood Urine Nitrate Urine Bilirubin Urine Urobilinogen Ur Leukocyte Esterase Urine RBC Urine WBC Ur Epithelial Cells Urine Bacteria 03/25/17 03/25/17 12:00 12:06 WBC RBC Hgb Hct MCV MCH MCHC RDW Plt Count MPV Sodium Potassium Chloride Carbon Dioxide Anion Gap BUN Creatinine Est GFR ( Amer) Est GFR (Non-Af Amer) POC Glucose (mg/dL) 123 H Random Glucose Calcium Total Bilirubin AST ALT Alkaline Phosphatase Total Protein Albumin Globulin Albumin/Globulin Ratio Urine Color Dark yellow Urine Appearance Clear Urine pH 6.0 Ur Specific [place] 1.015 Urine Protein Negative Urine Glucose (UA) Negative Urine Ketones Trace H Urine Blood Negative Urine Nitrate Negative Urine Bilirubin Negative Urine Urobilinogen 0.2 Ur Leukocyte Esterase Small H Urine RBC 0 - 2 Urine WBC 5 - 10 Ur Epithelial Cells 6 - 8 Urine Bacteria Many Temp Pulse Resp BP Pulse Ox 98.0 F 110 H 20 131/69 96 03/25/17 06:08 03/25/17 10:26 03/25/17 06:08 03/25/17 10:26 03/25/17 06:08 Temp Pulse Resp BP Pulse Ox 97.5 F L 78 17 134/87 96 03/26/17 07:00 03/26/17 09:00 03/26/17 07:00 03/26/17 10:12 03/26/17 07:00 Laboratory Results - last 24 hr 03/25/17 03/25/17 03/25/17 12:00 16:41 21:47 POC Glucose (mg/dL) 138 H 183 H Urine RBC 0 - 2 Urine WBC 5 - 10 Ur Epithelial Cells 6 - 8 Urine Bacteria Many 03/26/17 03/26/17 07:51 11:42 POC Glucose (mg/dL) 156 H 165 H Urine RBC Urine WBC Ur Epithelial Cells Urine Bacteria Temp Pulse Resp BP Pulse Ox 97.4 F L 88 20 122/42 L 96 03/29/17 07:57 03/29/17 11:38 03/29/17 07:57 03/29/17 11:40 03/26/17 07:00 Laboratory Results - last 24 hr 03/28/17 03/29/17 03/29/17 21:24 06:30 06:30 WBC 8.3 RBC 4.40 Hgb 13.5 Hct 40.4 MCV 91.8 MCH 30.7 MCHC 33.4 RDW 13.2 Plt Count 230 MPV 11.5 H Sodium 138 Potassium 3.8 Chloride 102 Carbon Dioxide 25 Anion Gap 15 BUN 19 Creatinine 0.8 Est GFR ( Amer) > 60 Est GFR (Non-Af Amer) > 60 POC Glucose (mg/dL) 188 H Random Glucose 131 H Calcium 10.1 Total Bilirubin 0.9 AST 27 ALT 42 Alkaline Phosphatase 70 Total Protein 7.4 Albumin 4.4 Globulin 3.0 Albumin/Globulin Ratio 1.5 03/29/17 03/29/17 03/29/17 07:31 11:16 15:58 WBC RBC Hgb Hct MCV MCH MCHC RDW Plt Count MPV Sodium Potassium Chloride Carbon Dioxide Anion Gap BUN Creatinine Est GFR ( Amer) Est GFR (Non-Af Amer) POC Glucose (mg/dL) 153 H 108 135 H Random Glucose Calcium Total Bilirubin AST ALT Alkaline Phosphatase Total Protein Albumin Globulin Albumin/Globulin Ratio Temp Pulse Resp BP Pulse Ox 98.4 F 93 H 20 126/92 H 96 03/30/17 07:57 03/30/17 09:37 03/30/17 07:57 03/30/17 09:37 03/26/17 07:00 Laboratory Results - last 24 hr 03/29/17 03/29/17 03/29/17 09:45 15:58 21:43 WBC RBC Hgb Hct MCV MCH MCHC RDW Plt Count MPV Sodium Potassium Chloride Carbon Dioxide Anion Gap BUN Creatinine Est GFR ( Amer) Est GFR (Non-Af Amer) POC Glucose (mg/dL) 135 H 140 H Random Glucose Calcium Total Bilirubin AST ALT Alkaline Phosphatase Total Protein Albumin Globulin Albumin/Globulin Ratio Procalcitonin < 0.05 L 03/30/17 03/30/17 03/30/17 07:29 07:45 07:45 WBC 6.5 D RBC 4.53 Hgb 13.9 Hct 41.9 MCV 92.5 MCH 30.7 MCHC 33.2 RDW 13.1 Plt Count 261 MPV 11.5 H Sodium Potassium Chloride Carbon Dioxide Anion Gap BUN Creatinine Est GFR ( Amer) Est GFR (Non-Af Amer) POC Glucose (mg/dL) 151 H Random Glucose Calcium Total Bilirubin AST ALT Alkaline Phosphatase Total Protein Albumin Globulin Albumin/Globulin Ratio Procalcitonin < 0.05 L 03/30/17 03/30/17 07:45 11:05 WBC RBC Hgb Hct MCV MCH MCHC RDW Plt Count MPV Sodium 140 Potassium 3.8 Chloride 102 Carbon Dioxide 27 Anion Gap 14 BUN 20 Creatinine 0.8 Est GFR ( Amer) > 60 Est GFR (Non-Af Amer) > 60 POC Glucose (mg/dL) 146 H Random Glucose 149 H Calcium 9.8 Total Bilirubin 0.5 AST 28 ALT 47 Alkaline Phosphatase 70 Total Protein 7.6 Albumin 4.4 Globulin 3.2 Albumin/Globulin Ratio 1.4 Procalcitonin Diagnostic Results: 03/18/17 07:20 03/18/17 07:20 Lab Results 03/19/17 11:57: POC Glucose (mg/dL) 158 H 03/19/17 08:07: POC Glucose (mg/dL) 138 H 03/18/17 21:40: POC Glucose (mg/dL) 151 H 03/18/17 16:15: POC Glucose (mg/dL) 161 H 03/18/17 08:02: POC Glucose (mg/dL) 164 H 03/18/17 07:20: Hemoglobin A1c 7.9 H D 03/18/17 07:20: TSH 3rd Generation 1.36 03/18/17 07:20: Sodium 143, Potassium 3.9, Chloride 105, Carbon Dioxide 29, Anion Gap 13, BUN 13, Creatinine 0.8, Est GFR ( Amer) > 60, Est GFR (Non- Af Amer) > 60, Random Glucose 193 H, Calcium 9.9, Total Bilirubin 1.0, AST 42 H D, ALT 41, Alkaline Phosphatase 101, Total Protein 7.9, Albumin 4.3, Globulin 3.6, Albumin/Globulin Ratio 1.2 03/18/17 07:20: WBC 7.7, RBC 5.28, Hgb 16.4 H, Hct 48.7 H, MCV 92.2, MCH 31.1, MCHC 33.7, RDW 13.9, Plt Count 199, MPV 12.0 H 03/17/17 21:52: POC Glucose (mg/dL) 150 H 03/17/17 06:45: TSH 3rd Generation 0.45 L 03/17/17 06:45: Fasting Glucose 165 H, Triglycerides 469 H, Cholesterol 306 H, LDL Cholesterol Direct 182 H, HDL Cholesterol 42 03/16/17 21:30: POC Glucose (mg/dL) 163 H 03/15/17 18:37: WBC 6.6 D, RBC 4.82, Hgb 15.0, Hct 44.0, MCV 91.3, MCH 31.1, MCHC 34.1, RDW 13.8, Plt Count 210, MPV 11.9 H, Gran % 55.6, Lymph % (Auto) 34.2 , Carbon % (Auto) 7.4 H, Eos % (Auto) 2.6, Baso % (Auto) 0.2, Gran # 3.66, Lymph # 2.3, Carbon # 0.5, Eos # 0.2, Baso # 0.01 03/15/17 18:37: Alcohol, Quantitative < 10 03/15/17 18:37: Salicylates < 1 L, Acetaminophen < 10.0 L 03/15/17 18:37: Sodium 141, Potassium 3.3 L, Chloride 104, Carbon Dioxide 29, Anion Gap 11, BUN 11, Creatinine 0.7, Est GFR ( Amer) > 60, Est GFR (Non- Af Amer) > 60, Random Glucose 224 H, Calcium 9.4, Magnesium 1.8, Total Bilirubin 0.6, AST 33, ALT 52, Alkaline Phosphatase 97, Total Protein 7.4, Albumin 4.1, Globulin 3.3, Albumin/Globulin Ratio 1.3 Vital Signs Temp Pulse Resp BP Pulse Ox 03/19/17 07:00 144/103 H 03/19/17 06:57 98.7 F 91 H 16 144/103 H 03/18/17 16:00 108 H 128/81 03/18/17 08:51 89 141/96 H 03/18/17 07:00 97.6 F 89 16 141/96 H 03/18/17 06:38 97.6 F 89 16 141/96 H 03/17/17 15:43 88 160/109 H 03/16/17 21:53 20 03/16/17 18:04 100 H 20 158/104 H 95 03/16/17 12:20 91 H 19 117/69 95 03/16/17 11:10 101 H 174/104 H 03/16/17 09:51 187/101 H 03/16/17 09:41 80 19 97 03/16/17 06:34 92 H 18 142/94 H 96 03/16/17 03:03 98 H 17 139/98 H 95 03/15/17 23:49 86 158/86 H 03/15/17 21:00 88 18 162/8 H 99 03/15/17 19:18 98.2 F 115 H 18 185/119 H 98 Laboratory Results - last 24 hr 03/22/17 03/22/17 03/23/17 17:03 21:26 07:24 WBC RBC Hgb Hct MCV MCH MCHC RDW Plt Count MPV Gran % Lymph % (Auto) Carbon % (Auto) Eos % (Auto) Baso % (Auto) Gran # Lymph # Carbon # Eos # Baso # Sodium Potassium Chloride Carbon Dioxide Anion Gap BUN Creatinine Est GFR ( Amer) Est GFR (Non-Af Amer) POC Glucose (mg/dL) 174 H 141 H 126 H Random Glucose Calcium Total Bilirubin AST ALT Alkaline Phosphatase Total Protein Albumin Globulin Albumin/Globulin Ratio 03/23/17 03/23/17 03/23/17 09:00 09:00 11:12 WBC 7.3 RBC 4.61 Hgb 14.2 D Hct 42.7 MCV 92.6 MCH 30.8 MCHC 33.3 RDW 13.5 Plt Count 234 MPV 11.8 H Gran % 78.0 H Lymph % (Auto) 15.6 L Carbon % (Auto) 5.6 Eos % (Auto) 0.5 L Baso % (Auto) 0.3 Gran # 5.68 Lymph # 1.1 L Carbon # 0.4 Eos # 0.0 Baso # 0.02 Sodium 140 Potassium 4.1 Chloride 102 Carbon Dioxide 27 Anion Gap 14 BUN 20 Creatinine 0.7 Est GFR ( Amer) > 60 Est GFR (Non-Af Amer) > 60 POC Glucose (mg/dL) 189 H Random Glucose 190 H Calcium 9.9 Total Bilirubin 0.8 AST 28 ALT 38 Alkaline Phosphatase 67 Total Protein 7.0 Albumin 4.3 Globulin 2.7 Albumin/Globulin Ratio 1.6 DSM 5 Symptoms Update: Pt is a 61 y/o (correction to my previous notes) female reported h/o schizophrenia, not known h/o suicidal attempts, pt was brought in to the hospital for evaluation of disorganized, agitated, paranoid behavior, pt was paranoid and delusional that about 50 women in her apartment having sex with each other, pt also was paranoid that her boyfriend (correction to my previous note) is cheating on her. pt was agitated in ED, needed to be medicated with IM ativan+geodon+haldol, pt required further evaluation and stabilization, pt was admitted under voluntary status. pt was seen and examined today at the [facility], pt still disorganized, but some improvement pt was able to hold conversation pt is not having visual hallucinations. will d/c 1:1 ID and medical follow up appreciated, see notes for more detailed info. MMSE: 03/29/17 pt is not sure what is the date, was aware the state and the hospital, was able to name an objects. scored 10/23 MMSE: 03/30/17 pt is more alert, was able to write a sentence. scored 04/24 no aggression or agitation pt tolerated meds well, no side effects observed or reported Impression: r/o schzophrenia r/o delirium Medication Change: Yes (ativan decreased) Medical Record Reviewed: Yes Consults ordered or reviewed: medical consult appreciated Mental Status Examination - Cognitive Function Orientation: Person, Place Memory: Impaired Attention: Poor (some improvement) Concentration: Poor (some improvement) Association: Loose Fund of Knowledge: WNL - Mood Mood: Other ( "okay".) - Affect Affect: Constricted (ut more reactive today) - Speech Speech: Loud (at times) - Formal Thought Process Formal Thought Process: Delusions (not noted today), Paranoia (not noted today) , Loosening of associations, Other (scattered, preoccupied and vague) - Suicidal Ideation Suicidal Ideation: No - Homicidal Ideation Homicidal Ideation: No Goal/Treatment Plan - Goal/Treatment Plan Need for Continued Stay: Remain at risks for inpatient hospitalization, Severe depression anxiety, Discharge may exacerbated symptoms, Severe functional impairment Progress Toward Problem(s) and Goals/Treatment Plan: 1:1 observation will be continued augmentin was started 500mg po bid as per medical advise ID consult called Milieu/structure/supportive therapy Medical consult appreciated, see medical team note for more detailed info SW consultation for discharge plan and social issues Med management risperdal d.c thorazine is on hold carola prn pt was on invega sustenna 165mg IM q4 weeks (confirmed by MICHI), pt missed her shot on March 10, last dose was 03/23/17 next dose should be given 04/07/17 ativan 1mg po twice a day for anxiety ambien 10mg po hs prn cymbalta 60mg po daily for depression pt is seen by medical team on daily basis patient was seen by infectious disease team today Family involvement Follow up on labs Will monitor closely [facility] evaluation for d/c planning Pt was educated about risk/benefits and alternatives of medications, coping strategies (safety plan, suicide prevention), relapse prevention, importance of follow up with psychiatrist and therapist, stay away from drugs/alcohol/smoking Estimated Date of D/C: 04/02/17
--- NOTE | 2017-03-30 16:35 | PN ---
DATE: 03/30/2017 SUBJECTIVE: The patient is in bed, in no acute distress, nontoxic on exam. PHYSICAL EXAMINATION: VITAL SIGNS: Temperature is 98, blood pressure is 120/60, respiratory rate of 16. HEENT: Unremarkable. NECK: Supple. LUNGS: Have decreased breath sounds. HEART: Normal S1 and S2. ABDOMEN: Soft. Laboratory examination reveals a white count of 6.5, hemoglobin of 13. BUN is 20, creatinine of 0.8. Urinalysis is noted, and microbiology reveals the blood cultures have no growth on repeat one; the initial one has had coag-negative staph in August 2016 and in January with bacillus species. ASSESSMENT AND PLAN: A 61-year-old female seen in psychiatric floor earlier today with history of schizophrenia, hypertension, hypothyroidism, bronchitis, obesity, with altered mental status, probably delirium and associated with schizophrenia. No evidence of infection. Currently, the patient is off of antibiotics. Review of medications reveals the patient to be off of antibiotics. We will check on the final results and follow with you. Dr. Avelino Antoine's note from this morning is reviewed. cJ Mendoza MD
[2017-03-31] MEDS: Levothyroxine 25 MCG TAB PO SCH (07:58)
[2017-03-31] MEDS: Pantoprazole 40 mg EC Tab PO SCH (07:59)
[2017-03-31] MEDS: Insulin Reg-MEDIUM-Coverage SC SCH ×4 (08:05→21:58)
--- NOTE | 2017-03-31 11:05 | PCM.BM ---
<LindseyChristopher - Last Filed: 03/31/17 11:04> Treatment Plan Problems - Problems identified on initial assessmt DELUSIONS Date Initiated: 03/16/17 Time Initiated: 21:00 Assessment reference: NA DEPRESSION Date Initiated: 03/16/17 Time Initiated: 21:00 Assessment reference: NA Status: Active Treatment assets and liabiliti Patient Assests: cooperative, educated, self-reliant, ADL independent, negotiates basic needs, cognitively intact Patient Liabilities: live alone, financial problems, relationship conflicts, dietary restrictions - Milieu Protocol Maintain good personal hygiene: daily Encourage regular showers, every shift Remind patient to perform daily oral care, every shift Assist patient to perform ADL's Maintain personal safety: every shift Educate patient to report safety concerns to staff, every shift Monitor environment for contraband/sharps Medication safety: Monitor for expected outcome, potential side effects: every shift, Assess barriers to learning: every shift, Assess readiness for medication education: every shift Milieu Narrative: 1:1 observation will be continued augmentin was started 500mg po bid as per medical advise ID consult called Milieu/structure/supportive therapy Medical consult appreciated, see medical team note for more detailed info consultation for discharge plan and social issues Med management risperdal d.c thorazine is on hold geonas espinosa pt was on invega sustenna 165mg IM q4 weeks (confirmed by ), pt missed her shot on March 10, last dose was 03/23/17 next dose should be given 04/07/17 ativan 1mg po twice a day for anxiety ambien 10mg po hs prn cymbalta 60mg po daily for depression pt is seen by medical team on daily basis patient was seen by infectious disease team today Family involvement Follow up on labs Will monitor closely evaluation for d/c planning Pt was educated about risk/benefits and alternatives of medications, coping strategies (safety plan, suicide prevention), relapse prevention, importance of follow up with psychiatrist and therapist, stay away from drugs/alcohol/smoking Family Contact Family involvement: Family/SO is involved Family contact: Patient agrees to contact Family contact name: Venkat Humphrey Family contact comment: Patient's boyfriend, Venkat Humphrey, provided collateral information. - Outside Agency Agency 1 Care involvment: Information-sharing Agency contact name: Martin Carroll Agency contact number: [phone] Agency 2 Care involvment: Other Agency contact name: Patient reports she is [place] [employer]-involved - Goals for Treatment Patient goals for treatment: Patient reports she wants to get back home to her boyfriend and her cat and return to treatment with Dr. Carreon. Discharge/Continuing Care - Education Needs Education Needs: Patient Medication, Patient Diagnosis/Disease Process, Patient Coping Skills, Patient Anger Management skills, Patient Community resources, Patient Health Practices/Safety, Patient Personal Hygiene/Grooming, Patient Aftercare Safety Plan - Discharge Discharge Criteria: Tolerates medication w/o severe side effects, Free of paranoid thoughts, Free of agitation, Normal sleep pattern, Ability to care for self - Treatment Team Participation Patient/Family/SO Statement: 1:1 observation will be continued augmentin was started 500mg po bid as per medical advise ID consult called Milieu/structure/supportive therapy Medical consult appreciated, see medical team note for more detailed info SW consultation for discharge plan and social issues Med management risperdal d.c thorazine is on hold carola espinosa pt was on invega sustenna 165mg IM q4 weeks (confirmed by SW), pt missed her shot on March 10, last dose was 03/23/17 next dose should be given 04/07/17 ativan 1mg po twice a day for anxiety ambien 10mg po hs prn cymbalta 60mg po daily for depression pt is seen by medical team on daily basis patient was seen by infectious disease team today Family involvement Follow up on labs Will monitor closely SW evaluation for d/c planning Pt was educated about risk/benefits and alternatives of medications, coping strategies (safety plan, suicide prevention), relapse prevention, importance of follow up with psychiatrist and therapist, stay away from drugs/alcohol/smoking Treatment Plan Review - Problem DELUSIONS Time Initiated: 21:00 DEPRESSION Time Initiated: 21:00 <Ewa More - Last Filed: 03/31/17 17:02> - Diagnosis (1) Schizophrenia Status: Acute Interventions: 03/31/17 17:02 patient is improving Still has episodes of confusion Medication adjusted on daily basis patientis not agitated Medication compliant Patient is an injectable form of Invega Sustenna (2) Delirium due to another medical condition Status: Acute Interventions: 03/31/17 17:03 patient is seen by medical team on daily basis Patient was seen by infectious diseases team Antibiotics was started Neurology team was called today Patient will have EEG <Olya Bui Y - Last Filed: 04/02/17 09:39>
--- NOTE | 2017-03-31 13:27 | PN ---
DATE: SUBJECTIVE: I saw Sena in the Psychiatric Unit in bed, resting comfortably. She slept well. She is talking to me well. She is doing very well. She is doing better mentally. MEDICATIONS: She is on Ambien, Ativan, Cogentin, Cozaar, Cymbalta, Ecotrin, Geodon, Glucophage, insulin, Lopressor, Maalox, Microzide, milk of magnesia, NicoDerm, Norvasc, Protonix, Synthroid, and Tylenol. PHYSICAL EXAMINATION: VITAL SIGNS: 97.3 temperature, 77 pulse, 111/57 blood pressure, and 20 respiratory rate. HEENT: Head is atraumatic and normocephalic. HEART: Regular rate. LUNGS: Clear to auscultation. ABDOMEN: Soft and obese. EXTREMITIES: No edema. NEUROLOGIC: She is alert and aware. She knew me. She know where she was and she has plans to see me on the outpatient. She has a plan. She is doing better. LABORATORY DATA: She has a 6.5 white count, 13.9 hemoglobin, and 261 platelets. Sodium is 140, potassium is 3.8, BUN is 20, and creatinine is 0.8. Last blood sugar was 142 and calcium was 9.8. AST is 20, ALT is 47, alkaline phosphatase is 70, and procalcitonin is less than 0.05. IMPRESSION AND PLAN: Overall, she is improving. Human immunodeficiency virus was nonreactive. She was being seen by Infectious Diseases and Psychiatry. She has a history of schizophrenia, hypertension, hypothyroidism, bronchitis, obesity, with altered mental status, probably delirium and schizophrenia, I do believes she is better mentally and do believe that delirium is resolving. She is currently on no antibiotics right now and we will continue to follow her. As per Psychiatry which is definitely improving. Avelino Antoine DO
--- NOTE | 2017-03-31 13:28 | CP.PCM.PN ---
Subjective - Date & Time of Evaluation Date of Evaluation: 03/31/17 Time of Evaluation: 13:25 - Subjective Subjective: PGY-2 [address] progress note [address] Dr[address] Bowie's service Patient seen and examined at bedside in psychiatry. No acute distress. Patient is alert and oriented. Per staff patient is confused. Patient states that she is not certain why she came to the hospital. She states that she was a little confused yesterday but is feeling better today. She denies headache, dizziness, changes in vision, fevers, chills. Objective - Vital Signs/Intake and Output Vital Signs (last 24 hours): Temp Pulse Resp BP Pulse Ox 97.3 F L 77 20 111/62 96 03/31/17 07:04 03/31/17 07:59 03/31/17 07:04 03/31/17 07:59 03/26/17 07:00 - Medications Medications: Current Medications Acetaminophen (Tylenol 325mg Tab) 650 mg PO Q4H PRN PRN Reason: Pain, Mild (1-3) Last Admin: 03/17/17 09:21 Dose: 650 mg Al Hydrox/Mg Hydrox/Simethicone (Maalox Plus 30 Ml) 30 ml PO DAILY PRN PRN Reason: Upset Stomach Amlodipine Besylate (Norvasc) 10 mg PO DAILY [facility] Last Admin: 03/31/17 07:58 Dose: 10 mg Aspirin (Ecotrin) 81 mg PO DAILY [facility] Last Admin: 03/31/17 07:59 Dose: 81 mg Benztropine Mesylate (Cogentin) 1 mg PO AMHS [facility] Last Admin: 03/31/17 09:51 Dose: 1 mg Duloxetine HCl (Cymbalta) 60 mg PO DAILY [facility] Last Admin: 03/31/17 07:59 Dose: 60 mg Hydrochlorothiazide (Microzide) 12.5 mg PO DAILY [facility] Last Admin: 03/31/17 07:59 Dose: 12.5 mg Insulin Human Regular (Humulin R Med) 0 units SC ACHS [facility] PRN Reason: Protocol Last Admin: 03/31/17 12:05 Dose: Not Given Levothyroxine Sodium (Synthroid) 25 mcg PO ACB [facility] Last Admin: 03/31/17 07:58 Dose: 25 mcg Lorazepam (Ativan) 1 mg IM Q4H PRN; Protocol PRN Reason: Anxiety Last Admin: 03/29/17 03:37 Dose: 1 mg Lorazepam (Ativan) 1 mg PO BID [facility] PRN Reason: Protocol Last Admin: 03/31/17 07:59 Dose: 1 mg Losartan Potassium (Cozaar) 100 mg PO DAILY [facility] Last Admin: 03/31/17 07:59 Dose: 100 mg Magnesium Hydroxide (Milk Of Magnesia) 30 ml PO DAILY PRN PRN Reason: Constipation Metformin HCl (Glucophage) 500 mg PO BID [facility] Last Admin: 03/31/17 07:58 Dose: 500 mg Metoprolol Tartrate (Lopressor) 12.5 mg PO BRKDIN [facility] Last Admin: 03/31/17 07:59 Dose: 12.5 mg Nicotine (Nicoderm Cq) 1 patch TD DAILY [facility] Last Admin: 03/31/17 07:57 Dose: 1 patch Pantoprazole Sodium (Protonix Ec Tab) 40 mg PO ACB [facility] Last Admin: 03/31/17 07:59 Dose: 40 mg Ziprasidone (Geodon Inj) 20 mg IM Q8H PRN; Protocol PRN Reason: severe agitation Last Admin: 03/29/17 00:24 Dose: 20 mg Ziprasidone (Geodon Cap) 20 mg PO Q8H PRN; Protocol PRN Reason: Agitation Zolpidem Tartrate (Ambien) 10 mg PO HS PRN; Protocol PRN Reason: Insomnia Last Admin: 03/30/17 22:30 Dose: 10 mg - Labs Labs: 03/30/17 07:45 03/30/17 07:45 - Constitutional Appears: No Acute Distress - Head Exam Head Exam: ATRAUMATIC, NORMAL INSPECTION, NORMOCEPHALIC - Eye Exam Eye Exam: EOMI, Normal appearance - ENT Exam ENT Exam: Mucous Membranes Moist - Neck Exam Neck Exam: Full ROM, Normal Inspection - Respiratory Exam Respiratory Exam: Clear to Ausculation Bilateral, NORMAL BREATHING PATTERN. absent: Rhonchi, Wheezes, Respiratory Distress - Cardiovascular Exam Cardiovascular Exam: REGULAR RHYTHM - Neurological Exam Neurological Exam: Alert, Awake, CN II-XII Intact, Oriented x3 Neuro motor strength exam: Left Upper Extremity: 5, Right Upper Extremity: 5, Left Lower Extremity: 5, Right Lower Extremity: 5 - Skin Skin Exam: Dry, Intact, Normal Color, Warm Assessment and Plan - Assessment and Plan (Free Text) Assessment: 61 yo female with PMH of presented with hallucination and AMS. Patient continues to be confused possibly due to parietal syndrome however CT of [place] head was normal. 1. intermittent confusional state - CT head was repeated in 03/28/17- no acute findings - clock drawing was reviewed - Will order EEG - continue present management Case discussed and reviewed with attending
--- NOTE | 2017-03-31 17:18 | PCM.PYCHPN ---
Psychiatric Progress Note - Psychiatric Progress Note Patient seen today, length of contact: 30min Patient Chief Complaint: "I am better, I feel okay.." Problems Identified/Issues Discussed: this promotion writer tried to discuss suicide/ homicide prevention, past psychiatric h/o , current psychiatric symptoms, medical problems, risk/benefits and alternatives of medications, medications compliance, coping strategies, substance abuse h/o, relapse prevention, importance of follow up with psychiatrist and therapist, discharge plan. bt pt is very disorganized Medical Problems: 03/18/17 07:20 03/18/17 07:20 Lab Results 03/18/17 08:02: POC Glucose (mg/dL) 164 H 03/18/17 07:20: Hemoglobin A1c 7.9 H D 03/18/17 07:20: TSH 3rd Generation 1.36 03/18/17 07:20: Sodium 143, Potassium 3.9, Chloride 105, Carbon Dioxide 29, Anion Gap 13, BUN 13, Creatinine 0.8, Est GFR ( Amer) > 60, Est GFR (Non- Af Amer) > 60, Random Glucose 193 H, Calcium 9.9, Total Bilirubin 1.0, AST 42 H D, ALT 41, Alkaline Phosphatase 101, Total Protein 7.9, Albumin 4.3, Globulin 3.6, Albumin/Globulin Ratio 1.2 03/18/17 07:20: WBC 7.7, RBC 5.28, Hgb 16.4 H, Hct 48.7 H, MCV 92.2, MCH 31.1, MCHC 33.7, RDW 13.9, Plt Count 199, MPV 12.0 H 03/17/17 21:52: POC Glucose (mg/dL) 150 H 03/17/17 06:45: TSH 3rd Generation 0.45 L 03/17/17 06:45: Fasting Glucose 165 H, Triglycerides 469 H, Cholesterol 306 H, LDL Cholesterol Direct 182 H, HDL Cholesterol 42 03/16/17 21:30: POC Glucose (mg/dL) 163 H 03/15/17 18:37: WBC 6.6 D, RBC 4.82, Hgb 15.0, Hct 44.0, MCV 91.3, MCH 31.1, MCHC 34.1, RDW 13.8, Plt Count 210, MPV 11.9 H, Gran % 55.6, Lymph % (Auto) 34.2 , Luna % (Auto) 7.4 H, Eos % (Auto) 2.6, Baso % (Auto) 0.2, Gran # 3.66, Lymph # 2.3, Luna # 0.5, Eos # 0.2, Baso # 0.01 03/15/17 18:37: Alcohol, Quantitative < 10 03/15/17 18:37: Salicylates < 1 L, Acetaminophen < 10.0 L 03/15/17 18:37: Sodium 141, Potassium 3.3 L, Chloride 104, Carbon Dioxide 29, Anion Gap 11, BUN 11, Creatinine 0.7, Est GFR ( Amer) > 60, Est GFR (Non- Af Amer) > 60, Random Glucose 224 H, Calcium 9.4, Magnesium 1.8, Total Bilirubin 0.6, AST 33, ALT 52, Alkaline Phosphatase 97, Total Protein 7.4, Albumin 4.1, Globulin 3.3, Albumin/Globulin Ratio 1.3 Vital Signs Temp Pulse Resp BP Pulse Ox 03/18/17 08:51 89 141/96 H 03/18/17 07:00 97.6 F 89 16 141/96 H 03/18/17 06:38 97.6 F 89 16 141/96 H 03/17/17 15:43 88 160/109 H 03/16/17 21:53 20 03/16/17 18:04 100 H 20 158/104 H 95 03/16/17 12:20 91 H 19 117/69 95 03/16/17 11:10 101 H 174/104 H 03/16/17 09:51 187/101 H 03/16/17 09:41 80 19 97 03/16/17 06:34 92 H 18 142/94 H 96 03/16/17 03:03 98 H 17 139/98 H 95 03/15/17 23:49 86 158/86 H 03/15/17 21:00 88 18 162/8 H 99 03/15/17 19:18 98.2 F 115 H 18 185/119 H 98 pt was seen by medical team pt is on abx for bronchitis pt was confused today, CBC and CMP wnl Laboratory Results - last 24 hr 03/23/17 03/23/17 03/23/17 16:27 16:27 16:30 POC Glucose (mg/dL) 134 H Urine Color Dark yellow Urine Appearance Clear Urine pH 6.0 Ur Specific Sterling 1.015 Urine Protein Negative Urine Glucose (UA) Negative Urine Ketones Trace H Urine Blood Negative Urine Nitrate Negative Urine Bilirubin Negative Urine Urobilinogen 0.2 Ur Leukocyte Esterase Negative Urine Opiates Screen Negative Urine Methadone Screen Negative Ur Barbiturates Screen Negative Ur Phencyclidine Scrn Negative Ur Amphetamines Screen Negative U Benzodiazepines Scrn Negative U Oth Cocaine Metabols Negative U Cannabinoids Screen Negative 03/23/17 03/24/17 03/24/17 21:51 07:45 11:45 POC Glucose (mg/dL) 163 H 183 H 205 H Urine Color Urine Appearance Urine pH Ur Specific Sterling Urine Protein Urine Glucose (UA) Urine Ketones Urine Blood Urine Nitrate Urine Bilirubin Urine Urobilinogen Ur Leukocyte Esterase Urine Opiates Screen Urine Methadone Screen Ur Barbiturates Screen Ur Phencyclidine Scrn Ur Amphetamines Screen U Benzodiazepines Scrn U Oth Cocaine Metabols U Cannabinoids Screen Laboratory Results - last 24 hr 03/24/17 03/24/17 03/25/17 16:25 21:22 03:48 WBC RBC Hgb Hct MCV MCH MCHC RDW Plt Count MPV Sodium Potassium Chloride Carbon Dioxide Anion Gap BUN Creatinine Est GFR ( Amer) Est GFR (Non-Af Amer) POC Glucose (mg/dL) 116 H 174 H 140 H Random Glucose Calcium Total Bilirubin AST ALT Alkaline Phosphatase Total Protein Albumin Globulin Albumin/Globulin Ratio Urine Color Urine Appearance Urine pH Ur Specific Sterling Urine Protein Urine Glucose (UA) Urine Ketones Urine Blood Urine Nitrate Urine Bilirubin Urine Urobilinogen Ur Leukocyte Esterase Urine RBC Urine WBC Ur Epithelial Cells Urine Bacteria 03/25/17 03/25/17 03/25/17 08:09 09:15 09:15 WBC 9.5 D RBC 4.71 Hgb 14.6 Hct 43.3 MCV 91.9 MCH 31.0 MCHC 33.7 RDW 13.5 Plt Count 247 MPV 11.7 H Sodium 141 Potassium 4.0 Chloride 102 Carbon Dioxide 27 Anion Gap 16 BUN 27 H Creatinine 0.9 Est GFR ( Amer) > 60 Est GFR (Non-Af Amer) > 60 POC Glucose (mg/dL) 144 H Random Glucose 140 H Calcium 10.4 Total Bilirubin 1.1 AST 32 ALT 54 Alkaline Phosphatase 79 Total Protein 8.0 Albumin 4.6 Globulin 3.3 Albumin/Globulin Ratio 1.4 Urine Color Urine Appearance Urine pH Ur Specific Sterling Urine Protein Urine Glucose (UA) Urine Ketones Urine Blood Urine Nitrate Urine Bilirubin Urine Urobilinogen Ur Leukocyte Esterase Urine RBC Urine WBC Ur Epithelial Cells Urine Bacteria 03/25/17 03/25/17 12:00 12:06 WBC RBC Hgb Hct MCV MCH MCHC RDW Plt Count MPV Sodium Potassium Chloride Carbon Dioxide Anion Gap BUN Creatinine Est GFR ( Amer) Est GFR (Non-Af Amer) POC Glucose (mg/dL) 123 H Random Glucose Calcium Total Bilirubin AST ALT Alkaline Phosphatase Total Protein Albumin Globulin Albumin/Globulin Ratio Urine Color Dark yellow Urine Appearance Clear Urine pH 6.0 Ur Specific [place] 1.015 Urine Protein Negative Urine Glucose (UA) Negative Urine Ketones Trace H Urine Blood Negative Urine Nitrate Negative Urine Bilirubin Negative Urine Urobilinogen 0.2 Ur Leukocyte Esterase Small H Urine RBC 0 - 2 Urine WBC 5 - 10 Ur Epithelial Cells 6 - 8 Urine Bacteria Many Temp Pulse Resp BP Pulse Ox 98.0 F 110 H 20 131/69 96 03/25/17 06:08 03/25/17 10:26 03/25/17 06:08 03/25/17 10:26 03/25/17 06:08 Temp Pulse Resp BP Pulse Ox 97.5 F L 78 17 134/87 96 03/26/17 07:00 03/26/17 09:00 03/26/17 07:00 03/26/17 10:12 03/26/17 07:00 Laboratory Results - last 24 hr 03/25/17 03/25/17 03/25/17 12:00 16:41 21:47 POC Glucose (mg/dL) 138 H 183 H Urine RBC 0 - 2 Urine WBC 5 - 10 Ur Epithelial Cells 6 - 8 Urine Bacteria Many 03/26/17 03/26/17 07:51 11:42 POC Glucose (mg/dL) 156 H 165 H Urine RBC Urine WBC Ur Epithelial Cells Urine Bacteria Temp Pulse Resp BP Pulse Ox 97.4 F L 88 20 122/42 L 96 03/29/17 07:57 03/29/17 11:38 03/29/17 07:57 03/29/17 11:40 03/26/17 07:00 Laboratory Results - last 24 hr 03/28/17 03/29/17 03/29/17 21:24 06:30 06:30 WBC 8.3 RBC 4.40 Hgb 13.5 Hct 40.4 MCV 91.8 MCH 30.7 MCHC 33.4 RDW 13.2 Plt Count 230 MPV 11.5 H Sodium 138 Potassium 3.8 Chloride 102 Carbon Dioxide 25 Anion Gap 15 BUN 19 Creatinine 0.8 Est GFR ( Amer) > 60 Est GFR (Non-Af Amer) > 60 POC Glucose (mg/dL) 188 H Random Glucose 131 H Calcium 10.1 Total Bilirubin 0.9 AST 27 ALT 42 Alkaline Phosphatase 70 Total Protein 7.4 Albumin 4.4 Globulin 3.0 Albumin/Globulin Ratio 1.5 03/29/17 03/29/17 03/29/17 07:31 11:16 15:58 WBC RBC Hgb Hct MCV MCH MCHC RDW Plt Count MPV Sodium Potassium Chloride Carbon Dioxide Anion Gap BUN Creatinine Est GFR ( Amer) Est GFR (Non-Af Amer) POC Glucose (mg/dL) 153 H 108 135 H Random Glucose Calcium Total Bilirubin AST ALT Alkaline Phosphatase Total Protein Albumin Globulin Albumin/Globulin Ratio Temp Pulse Resp BP Pulse Ox 98.4 F 93 H 20 126/92 H 96 03/30/17 07:57 03/30/17 09:37 03/30/17 07:57 03/30/17 09:37 03/26/17 07:00 Laboratory Results - last 24 hr 03/29/17 03/29/17 03/29/17 09:45 15:58 21:43 WBC RBC Hgb Hct MCV MCH MCHC RDW Plt Count MPV Sodium Potassium Chloride Carbon Dioxide Anion Gap BUN Creatinine Est GFR ( Amer) Est GFR (Non-Af Amer) POC Glucose (mg/dL) 135 H 140 H Random Glucose Calcium Total Bilirubin AST ALT Alkaline Phosphatase Total Protein Albumin Globulin Albumin/Globulin Ratio Procalcitonin < 0.05 L 03/30/17 03/30/17 03/30/17 07:29 07:45 07:45 WBC 6.5 D RBC 4.53 Hgb 13.9 Hct 41.9 MCV 92.5 MCH 30.7 MCHC 33.2 RDW 13.1 Plt Count 261 MPV 11.5 H Sodium Potassium Chloride Carbon Dioxide Anion Gap BUN Creatinine Est GFR ( Amer) Est GFR (Non-Af Amer) POC Glucose (mg/dL) 151 H Random Glucose Calcium Total Bilirubin AST ALT Alkaline Phosphatase Total Protein Albumin Globulin Albumin/Globulin Ratio Procalcitonin < 0.05 L 03/30/17 03/30/17 07:45 11:05 WBC RBC Hgb Hct MCV MCH MCHC RDW Plt Count MPV Sodium 140 Potassium 3.8 Chloride 102 Carbon Dioxide 27 Anion Gap 14 BUN 20 Creatinine 0.8 Est GFR ( Amer) > 60 Est GFR (Non-Af Amer) > 60 POC Glucose (mg/dL) 146 H Random Glucose 149 H Calcium 9.8 Total Bilirubin 0.5 AST 28 ALT 47 Alkaline Phosphatase 70 Total Protein 7.6 Albumin 4.4 Globulin 3.2 Albumin/Globulin Ratio 1.4 Procalcitonin Laboratory Results - last 24 hr 03/30/17 03/30/17 03/31/17 07:45 21:35 07:23 POC Glucose (mg/dL) 182 H 142 H HIV 1&2 Ag/Ab, 4th Gen Nonreactive 03/31/17 03/31/17 11:10 15:57 POC Glucose (mg/dL) 126 H 152 H HIV 1&2 Ag/Ab, 4th Gen Temp Pulse Resp BP Pulse Ox 97.3 F L 82 20 113/74 96 03/31/17 07:04 03/31/17 16:16 03/31/17 07:04 03/31/17 16:16 03/26/17 07:00 Diagnostic Results: 03/18/17 07:20 03/18/17 07:20 Lab Results 03/19/17 11:57: POC Glucose (mg/dL) 158 H 03/19/17 08:07: POC Glucose (mg/dL) 138 H 03/18/17 21:40: POC Glucose (mg/dL) 151 H 03/18/17 16:15: POC Glucose (mg/dL) 161 H 03/18/17 08:02: POC Glucose (mg/dL) 164 H 03/18/17 07:20: Hemoglobin A1c 7.9 H D 03/18/17 07:20: TSH 3rd Generation 1.36 03/18/17 07:20: Sodium 143, Potassium 3.9, Chloride 105, Carbon Dioxide 29, Anion Gap 13, BUN 13, Creatinine 0.8, Est GFR ( Amer) > 60, Est GFR (Non- Af Amer) > 60, Random Glucose 193 H, Calcium 9.9, Total Bilirubin 1.0, AST 42 H D, ALT 41, Alkaline Phosphatase 101, Total Protein 7.9, Albumin 4.3, Globulin 3.6, Albumin/Globulin Ratio 1.2 03/18/17 07:20: WBC 7.7, RBC 5.28, Hgb 16.4 H, Hct 48.7 H, MCV 92.2, MCH 31.1, MCHC 33.7, RDW 13.9, Plt Count 199, MPV 12.0 H 03/17/17 21:52: POC Glucose (mg/dL) 150 H 03/17/17 06:45: TSH 3rd Generation 0.45 L 03/17/17 06:45: Fasting Glucose 165 H, Triglycerides 469 H, Cholesterol 306 H, LDL Cholesterol Direct 182 H, HDL Cholesterol 42 03/16/17 21:30: POC Glucose (mg/dL) 163 H 03/15/17 18:37: WBC 6.6 D, RBC 4.82, Hgb 15.0, Hct 44.0, MCV 91.3, MCH 31.1, MCHC 34.1, RDW 13.8, Plt Count 210, MPV 11.9 H, Gran % 55.6, Lymph % (Auto) 34.2 , Luna % (Auto) 7.4 H, Eos % (Auto) 2.6, Baso % (Auto) 0.2, Gran # 3.66, Lymph # 2.3, Luna # 0.5, Eos # 0.2, Baso # 0.01 03/15/17 18:37: Alcohol, Quantitative < 10 03/15/17 18:37: Salicylates < 1 L, Acetaminophen < 10.0 L 03/15/17 18:37: Sodium 141, Potassium 3.3 L, Chloride 104, Carbon Dioxide 29, Anion Gap 11, BUN 11, Creatinine 0.7, Est GFR ( Amer) > 60, Est GFR (Non- Af Amer) > 60, Random Glucose 224 H, Calcium 9.4, Magnesium 1.8, Total Bilirubin 0.6, AST 33, ALT 52, Alkaline Phosphatase 97, Total Protein 7.4, Albumin 4.1, Globulin 3.3, Albumin/Globulin Ratio 1.3 Vital Signs Temp Pulse Resp BP Pulse Ox 03/19/17 07:00 144/103 H 03/19/17 06:57 98.7 F 91 H 16 144/103 H 03/18/17 16:00 108 H 128/81 03/18/17 08:51 89 141/96 H 03/18/17 07:00 97.6 F 89 16 141/96 H 03/18/17 06:38 97.6 F 89 16 141/96 H 03/17/17 15:43 88 160/109 H 03/16/17 21:53 20 03/16/17 18:04 100 H 20 158/104 H 95 03/16/17 12:20 91 H 19 117/69 95 03/16/17 11:10 101 H 174/104 H 03/16/17 09:51 187/101 H 03/16/17 09:41 80 19 97 03/16/17 06:34 92 H 18 142/94 H 96 03/16/17 03:03 98 H 17 139/98 H 95 03/15/17 23:49 86 158/86 H 03/15/17 21:00 88 18 162/8 H 99 03/15/17 19:18 98.2 F 115 H 18 185/119 H 98 Laboratory Results - last 24 hr 03/22/17 03/22/17 03/23/17 17:03 21:26 07:24 WBC RBC Hgb Hct MCV MCH MCHC RDW Plt Count MPV Gran % Lymph % (Auto) Luna % (Auto) Eos % (Auto) Baso % (Auto) Gran # Lymph # Luna # Eos # Baso # Sodium Potassium Chloride Carbon Dioxide Anion Gap BUN Creatinine Est GFR ( Amer) Est GFR (Non-Af Amer) POC Glucose (mg/dL) 174 H 141 H 126 H Random Glucose Calcium Total Bilirubin AST ALT Alkaline Phosphatase Total Protein Albumin Globulin Albumin/Globulin Ratio 03/23/17 03/23/17 03/23/17 09:00 09:00 11:12 WBC 7.3 RBC 4.61 Hgb 14.2 D Hct 42.7 MCV 92.6 MCH 30.8 MCHC 33.3 RDW 13.5 Plt Count 234 MPV 11.8 H Gran % 78.0 H Lymph % (Auto) 15.6 L Luna % (Auto) 5.6 Eos % (Auto) 0.5 L Baso % (Auto) 0.3 Gran # 5.68 Lymph # 1.1 L Luna # 0.4 Eos # 0.0 Baso # 0.02 Sodium 140 Potassium 4.1 Chloride 102 Carbon Dioxide 27 Anion Gap 14 BUN 20 Creatinine 0.7 Est GFR ( Amer) > 60 Est GFR (Non-Af Amer) > 60 POC Glucose (mg/dL) 189 H Random Glucose 190 H Calcium 9.9 Total Bilirubin 0.8 AST 28 ALT 38 Alkaline Phosphatase 67 Total Protein 7.0 Albumin 4.3 Globulin 2.7 Albumin/Globulin Ratio 1.6 EEG will be scheduled DSM 5 Symptoms Update: Pt is a 61 y/o (correction to my previous notes) female reported h/o schizophrenia, not known h/o suicidal attempts, pt was brought in to the hospital for evaluation of disorganized, agitated, paranoid behavior, pt was paranoid and delusional that about 50 women in her apartment having sex with each other, pt also was paranoid that her boyfriend (correction to my previous note) is cheating on her. pt was agitated in ED, needed to be medicated with IM ativan+geodon+haldol, pt required further evaluation and stabilization, pt was admitted under voluntary status. 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 pt is not having visual hallucinations. ID and medical follow up appreciated, see notes for more detailed info. neurology consult also appreciated MMSE: 03/29/17 pt is not sure what is the date, was aware the state and the hospital, was able to name an objects. scored 10/23 MMSE: 03/30/17 pt is more alert, was able to write a sentence. scored 04/24 MMSE: 03/31/17 more coherent, pt was not able to draw a clock, numbers were distributed only on the right side , neurology was called, will do EEG, follow up appreciated. no aggression or agitation pt tolerated meds well, no side effects observed or reported Impression: r/o schzophrenia r/o delirium Medication Change: Yes (ativan decreased 1mg bid) Medical Record Reviewed: Yes Consults ordered or reviewed: medical consult appreciated ID consult appreciated Neuro consult appreciated Mental Status Examination - Cognitive Function Orientation: Person, Place Memory: Impaired Attention: Poor (some improvement) Concentration: Poor (some improvement) Association: Loose Fund of Knowledge: WNL - Mood Mood: Other ( "okay".) - Affect Affect: Constricted (ut more reactive today) - Speech Speech: Loud (at times) - Formal Thought Process Formal Thought Process: Delusions (not noted today), Paranoia (not noted today) , Loosening of associations, Other (scattered, preoccupied and vague) - Suicidal Ideation Suicidal Ideation: No - Homicidal Ideation Homicidal Ideation: No Goal/Treatment Plan - Goal/Treatment Plan Need for Continued Stay: Remain at risks for inpatient hospitalization, Severe depression anxiety, Discharge may exacerbated symptoms, Severe functional impairment Progress Toward Problem(s) and Goals/Treatment Plan: 1:1 observation will be continued augmentin was started 500mg po bid as per medical advise ID consult called Milieu/structure/supportive therapy Medical consult appreciated, see medical team note for more detailed info consultation for discharge plan and social issues Med management thorazine and risperdal on hold geodon prn, pt did not required any IMs pt was on invega sustenna 156mg IM q4 weeks (confirmed by ), pt missed her shot on March 10, last dose was 03/23/17 next dose should be given 04/07/17 [facility] [place] pharmacy has this medication in stock, if pt will be here in [facility] [place], it could be delivered ativan 1mg po twice a day for anxiety ambien 10mg po hs prn cymbalta 60mg po daily for depression pt is seen by medical team on daily basis patient was seen by infectious disease team today Family involvement Follow up on labs Will monitor closely evaluation for d/c planning Pt was educated about risk/benefits and alternatives of medications, coping strategies (safety plan, suicide prevention), relapse prevention, importance of follow up with psychiatrist and therapist, stay away from drugs/alcohol/smoking Estimated Date of D/C: 04/02/17
--- NOTE | 2017-03-31 17:53 | PN ---
DATE: 03/31/2017 SUBJECTIVE: The patient is in bed, in no acute distress. Was seen early this morning in psychiatric floor. PHYSICAL EXAMINATION: VITAL SIGNS: Temperature is 97, blood pressure is 111/50, respiratory rate of 20. HEENT: Unremarkable. NECK: Supple. LUNGS: Have decreased breath sounds. HEART: Normal S1, S2. ABDOMEN: Soft, nontender. Laboratory examination reveals a white count of 6.5, hemoglobin of 13, platelets of 261. Chemistries reveal a BUN of 20, creatinine of 0.8. Urinalysis is noted. Toxicology is noted. Serology is noted. HIV is negative. Microbiology reveals the blood cultures have no growth. Review of orders. ASSESSMENT AND PLAN: This is a 61-year-old female in psychiatric floor earlier today, history of schizophrenia, hypertension, hypothyroidism, bronchitis, obesity, altered mental status, probably delirium, sodium associated, with schizophrenia. No evidence of infection. Currently off of antibiotics and the patient is at risk for developing nosocomial infections. Jc Mendoza MD
[2017-04-01] MEDS: Insulin Reg-MEDIUM-Coverage SC SCH ×4 (08:00→21:21)
[2017-04-01] MEDS: Levothyroxine 25 MCG TAB PO SCH (08:17)
[2017-04-01] MEDS: Pantoprazole 40 mg EC Tab PO SCH (08:18)
--- NOTE | 2017-04-01 10:49 | PN ---
DATE: 04/01/2017 SUBJECTIVE: I saw in the [place] of psych floor. She is doing much better. She is walking. She knew me right away. She is in good spirits. She is taking her medications. She is eating well. She is participating in groups and she is more oriented. MEDICATIONS: She is on Ambien, Ativan, Cogentin, Cozaar, Cymbalta, Ecotrin, Geodon, Glucophage, insulin, Lopressor, Maalox, Microzide, milk of magnesia, Nicoderm, Norvasc, Protonix, Synthroid and Tylenol. PHYSICAL EXAMINATION: VITAL SIGNS: 97.3 temperature, 77 pulse, 111/62 blood pressure, 20 respiratory rate. HEENT: Head is atraumatic, normocephalic. HEART: Regular rate. LUNGS: Clear to auscultation. ABDOMEN: Soft, obese, and nontender. EXTREMITIES: No edema. LABORATORY DATA: Last labs on , and she did very well. Last blood sugar was 165. ASSESSMENT AND PLAN: Overall, I think she is starting to improve. I called in Infectious Disease due to her change in mentation, and at this time there is no evidence of infection. I will continue with aggressive treatment and care as per psych. Avelino Antoine DO MTDD
--- NOTE | 2017-04-01 11:04 | CP.PCM.PN ---
Subjective - Date & Time of Evaluation Date of Evaluation: 04/01/17 Time of Evaluation: 11:01 - Subjective Subjective: PGY-2 Neu[address] progress note for Dr[address] Bowie's service Patient seen and examined at bedside in psychiatric unit. No acute distress. Patient is alert and oriented to person, place, time and situation. She states that she at time gets confused at night but states its transient. She denies any headache, dizziness, fever, chills. Objective - Vital Signs/Intake and Output Vital Signs (last 24 hours): Temp Pulse Resp BP Pulse Ox 97.3 F L 95 H 20 118/69 96 03/31/17 07:04 04/01/17 08:14 03/31/17 07:04 04/01/17 08:16 03/26/17 07:00 - Medications Medications: Current Medications Acetaminophen (Tylenol 325mg Tab) 650 mg PO Q4H PRN PRN Reason: Pain, Mild (1-3) Last Admin: 03/17/17 09:21 Dose: 650 mg Al Hydrox/Mg Hydrox/Simethicone (Maalox Plus 30 Ml) 30 ml PO DAILY PRN PRN Reason: Upset Stomach Amlodipine Besylate (Norvasc) 10 mg PO DAILY [facility] Last Admin: 04/01/17 08:16 Dose: 10 mg Aspirin (Ecotrin) 81 mg PO DAILY [facility] Last Admin: 04/01/17 08:17 Dose: 81 mg Benztropine Mesylate (Cogentin) 1 mg PO AMHS [facility] Last Admin: 03/31/17 22:16 Dose: 1 mg Duloxetine HCl (Cymbalta) 60 mg PO DAILY [facility] Last Admin: 04/01/17 08:18 Dose: 60 mg Hydrochlorothiazide (Microzide) 12.5 mg PO DAILY [facility] Last Admin: 04/01/17 08:17 Dose: 12.5 mg Insulin Human Regular (Humulin R Med) 0 units SC ACHS KALLI PRN Reason: Protocol Last Admin: 04/01/17 08:00 Dose: 1 units Levothyroxine Sodium (Synthroid) 25 mcg PO ACB [facility] Last Admin: 04/01/17 08:17 Dose: 25 mcg Lorazepam (Ativan) 1 mg IM Q4H PRN; Protocol PRN Reason: Anxiety Last Admin: 03/29/17 03:37 Dose: 1 mg Lorazepam (Ativan) 1 mg PO BID [facility] PRN Reason: Protocol Last Admin: 03/31/17 16:15 Dose: 1 mg Losartan Potassium (Cozaar) 100 mg PO DAILY [facility] Last Admin: 04/01/17 08:19 Dose: 100 mg Magnesium Hydroxide (Milk Of Magnesia) 30 ml PO DAILY PRN PRN Reason: Constipation Metformin HCl (Glucophage) 500 mg PO BID [facility] Last Admin: 04/01/17 08:18 Dose: 500 mg Metoprolol Tartrate (Lopressor) 12.5 mg PO BRKDIN [facility] Last Admin: 04/01/17 08:14 Dose: 12.5 mg Nicotine (Nicoderm Cq) 1 patch TD DAILY [facility] Last Admin: 04/01/17 08:13 Dose: 1 patch Pantoprazole Sodium (Protonix Ec Tab) 40 mg PO ACB [facility] Last Admin: 04/01/17 08:18 Dose: 40 mg Ziprasidone (Geodon Inj) 20 mg IM Q8H PRN; Protocol PRN Reason: severe agitation Last Admin: 03/29/17 00:24 Dose: 20 mg Ziprasidone (Geodon Cap) 20 mg PO Q8H PRN; Protocol PRN Reason: Agitation Zolpidem Tartrate (Ambien) 10 mg PO HS PRN; Protocol PRN Reason: Insomnia Last Admin: 03/31/17 22:15 Dose: 10 mg - Labs Labs: 03/30/17 07:45 03/30/17 07:45 - Constitutional Appears: No Acute Distress - Head Exam Head Exam: ATRAUMATIC, NORMAL INSPECTION, NORMOCEPHALIC - Eye Exam Eye Exam: EOMI - ENT Exam ENT Exam: Mucous Membranes Moist - Respiratory Exam Respiratory Exam: Clear to Ausculation Bilateral, NORMAL BREATHING PATTERN. absent: Rhonchi, Wheezes, Respiratory Distress - Cardiovascular Exam Cardiovascular Exam: REGULAR RHYTHM. absent: Tachycardia, Murmur - Neurological Exam Neurological Exam: Alert, Awake, CN II-XII Intact, Oriented x3 Neuro motor strength exam: Left Upper Extremity: 5, Right Upper Extremity: 5, Left Lower Extremity: 5, Right Lower Extremity: 5 - Skin Skin Exam: Dry, Intact, Normal Color, Warm Assessment and Plan - Assessment and Plan (Free Text) Assessment: 61 yo female with PMH of presented with hallucination and AMS. Patient continues to be confused possibly due to parietal syndrome however CT of [place] head was normal. 1. intermittent confusional state - CT head was repeated in 03/28/17- no acute findings - clock drawing was reviewed - EEG ordered - continue present management Case discussed and reviewed with attending
--- NOTE | 2017-04-01 14:16 | PCM.PYCHPN ---
Psychiatric Progress Note - Psychiatric Progress Note Patient seen today, length of contact: 30min Patient Chief Complaint: "I am feeling a lot better and my head feels clearer" Problems Identified/Issues Discussed: Patient is improved, her appearance is more organized and she is oriented x3, though she was not able to name the president or the names of staff present. She is asking for discharge, patient needs neurological follow up before she goes home as there are some deficits. she plans to follow up with her outpatient provider Dr Zacarias upon discharge. Medication Change: No Medical Record Reviewed: Yes Consults ordered or reviewed: Awaiting neuro consult, patient continues confused intermittently. Mental Status Examination - Cognitive Function Orientation: Person, Place Memory: Impaired Attention: Poor (some improvement) Concentration: Poor (some improvement) Association: Loose Fund of Knowledge: WNL - Mood Mood: Other ( "okay".) - Affect Affect: Constricted (ut more reactive today) - Speech Speech: Loud (at times) - Formal Thought Process Formal Thought Process: Delusions (not noted today), Paranoia (not noted today) , Loosening of associations, Other (scattered, preoccupied and vague) - Suicidal Ideation Suicidal Ideation: No - Homicidal Ideation Homicidal Ideation: No Goal/Treatment Plan - Goal/Treatment Plan Need for Continued Stay: Remain at risks for inpatient hospitalization, Severe depression anxiety, Discharge may exacerbated symptoms, Severe functional impairment Estimated Date of D/C: 04/02/17
--- NOTE | 2017-04-02 00:58 | PN ---
DATE: 04/01/2017 SUBJECTIVE: The patient is seen early this morning. No fevers and no chills. No abdominal pain, diarrhea or constipation. PHYSICAL EXAMINATION: VITAL SIGNS: On exam, temperature is 98, blood pressure is 118/60, respiratory rate is 20. HEENT: Unremarkable. NECK: Supple. LUNGS: Have decreased breath sounds. HEART: Normal S1 and S2. ABDOMEN: Soft. LABORATORY EXAMINATION: Reveals a white count of 6.5, hemoglobin of 13, platelets of 261. Chemistries are noted. MEDICATIONS: Review of medications reveal the patient to have no antibiotics. ASSESSMENT AND PLAN: This is a 61-year-old female, seen early this morning in psychiatric floor with a history of schizophrenia, hypertension, hypothyroidism, bronchitis, obesity, admitted with altered mental status, probably more consistent with delirium and associated with schizophrenia. No evidence of infection currently and off of antibiotics. She is at risk for developing nosocomial infections. Jc Mendoza MD
[2017-04-02] MEDS: Insulin Reg-MEDIUM-Coverage SC SCH ×4 (07:36→21:35)
[2017-04-02] MEDS: Pantoprazole 40 mg EC Tab PO SCH (09:26)
[2017-04-02] MEDS: Levothyroxine 25 MCG TAB PO SCH (09:26)
--- NOTE | 2017-04-02 10:09 | PCM.PYCHPN ---
Psychiatric Progress Note - Psychiatric Progress Note Patient seen today, length of contact: 25 min Patient Chief Complaint: "good" Problems Identified/Issues Discussed: I reviewed recent notes and interviewed patient at bedside. Patient is known to me from multiple prior interviews over the last 2 weekends. Her grooming is a little better and she seems more focused and less impulsive. Patient was not observed wandering this morning. Oriented to location, month and year (though has some initial difficulty providing this information). She doesn't know the circumstances for this admission. Overall, patient does appear more organized. Staff notes indicate greater periods of lucidity and behavior is in better control. She tells me that she feels "good" but still appears disengaged and preoccupied. She denies hallucinations and delusions were not elicited this morning. She denies side effects from her medications, any new discomfort or pain. Slept well last night and there were no behavioral issues overnight. Diagnostic Results: r/o schzophrenia r/o delirium (improving) Medication Change: No Medical Record Reviewed: Yes Mental Status Examination - Cognitive Function Orientation: Person, Place Memory: Impaired Attention: Poor (some improvement) Concentration: Poor (some improvement) Association: Loose Fund of Knowledge: WNL - Mood Mood: Other ( "good" ) - Affect Affect: Constricted (improving but still appears disengaged and preoccupied.) - Speech Speech: Appropriate - Formal Thought Process Formal Thought Process: Delusions (not noted today), Paranoia (not noted today) , Loosening of associations, Other (scattered, preoccupied and vague) - Suicidal Ideation Suicidal Ideation: No - Homicidal Ideation Homicidal Ideation: No Goal/Treatment Plan - Goal/Treatment Plan Need for Continued Stay: Remain at risks for inpatient hospitalization, Severe depression anxiety, Discharge may exacerbated symptoms, Severe functional impairment Progress Toward Problem(s) and Goals/Treatment Plan: * Milieu/structure/supportive therapy * Geodon 20 mg po/IM q8 prn: agitation * Per Dr. More progress note on 03/31/17: pt was on invega sustenna 156mg IM q4 weeks (confirmed by SW), pt missed her shot on March 10, last dose was 03/23/17 next dose should be given 04/07/17 [facility] [place], if pt will be here [place] [facility] * Ativan 1 mg po BID for anxiety * Ambien 10 mg po hs prn insomnia * Cymbalta 60mg po daily for depression * Appreciate f/u by Dr. Mendoza on 04/01/17~no new recommendations * Vitals reviewed and noted below: Selected Entries 04/02/17 04/02/17 04/02/17 06:55 09:26 09:28 Temperature 97.4 F L Pulse Rate 87 87 Respiratory 20 Rate Blood Pressure 126/74 126/74 126/74 * No new floor labs noted thus far. * Patient rescinded 48 hr notice 03/25/17 * Prior weekend labs noted below: Laboratory Results - last 72 hr 03/25/17 03/25/17 03/25/17 12:00 12:06 16:41 WBC RBC Hgb Hct MCV MCH MCHC RDW Plt Count MPV Sodium Potassium Chloride Carbon Dioxide Anion Gap BUN Creatinine Est GFR ( Amer) Est GFR (Non-Af Amer) POC Glucose (mg/dL) 123 H 138 H Random Glucose Calcium Total Bilirubin AST ALT Alkaline Phosphatase Total Protein Albumin Globulin Albumin/Globulin Ratio Urine Color Dark yellow Urine Appearance Clear Urine pH 6.0 Ur Specific [place] 1.015 Urine Protein Negative Urine Glucose (UA) Negative Urine Ketones Trace H Urine Blood Negative Urine Nitrate Negative Urine Bilirubin Negative Urine Urobilinogen 0.2 Ur Leukocyte Esterase Small H Urine RBC 0 - 2 Urine WBC 5 - 10 Ur Epithelial Cells 6 - 8 Urine Bacteria Many 03/25/17 03/26/17 03/26/17 21:47 07:51 11:42 WBC RBC Hgb Hct MCV MCH MCHC RDW Plt Count MPV Sodium Potassium Chloride Carbon Dioxide Anion Gap BUN Creatinine Est GFR ( Amer) Est GFR (Non-Af Amer) POC Glucose (mg/dL) 183 H 156 H 165 H Random Glucose Calcium Total Bilirubin AST ALT Alkaline Phosphatase Total Protein Albumin Globulin Albumin/Globulin Ratio Urine Color Urine Appearance Urine pH Ur Specific [place] Urine Protein Urine Glucose (UA) Urine Ketones Urine Blood Urine Nitrate Urine Bilirubin Urine Urobilinogen Ur Leukocyte Esterase Urine RBC Urine WBC Ur Epithelial Cells Urine Bacteria 03/26/17 03/26/17 03/27/17 16:41 21:41 07:00 WBC 7.4 D RBC 4.43 Hgb 13.5 Hct 41.9 MCV 94.6 MCH 30.5 MCHC 32.2 RDW 13.5 Plt Count 224 MPV 12.0 H Sodium Potassium Chloride Carbon Dioxide Anion Gap BUN Creatinine Est GFR ( Amer) Est GFR (Non-Af Amer) POC Glucose (mg/dL) 125 H 140 H Random Glucose Calcium Total Bilirubin AST ALT Alkaline Phosphatase Total Protein Albumin Globulin Albumin/Globulin Ratio Urine Color Urine Appearance Urine pH Ur Specific [place] Urine Protein Urine Glucose (UA) Urine Ketones Urine Blood Urine Nitrate Urine Bilirubin Urine Urobilinogen Ur Leukocyte Esterase Urine RBC Urine WBC Ur Epithelial Cells Urine Bacteria 03/27/17 03/27/17 03/27/17 07:00 07:19 11:18 WBC RBC Hgb Hct MCV MCH MCHC RDW Plt Count MPV Sodium 141 Potassium 3.7 Chloride 104 Carbon Dioxide 28 Anion Gap 13 BUN 22 H Creatinine 0.7 Est GFR ( Amer) > 60 Est GFR (Non-Af Amer) > 60 POC Glucose (mg/dL) 144 H 143 H Random Glucose 146 H Calcium 9.9 Total Bilirubin 0.7 AST 30 ALT 46 Alkaline Phosphatase 58 Total Protein 6.4 Albumin 3.9 Globulin 2.4 Albumin/Globulin Ratio 1.6 Urine Color Urine Appearance Urine pH Ur Specific [place] Urine Protein Urine Glucose (UA) Urine Ketones Urine Blood Urine Nitrate Urine Bilirubin Urine Urobilinogen Ur Leukocyte Esterase Urine RBC Urine WBC Ur Epithelial Cells Urine Bacteria 03/27/17 03/27/17 03/28/17 16:18 21:23 07:14 WBC RBC Hgb Hct MCV MCH MCHC RDW Plt Count MPV Sodium Potassium Chloride Carbon Dioxide Anion Gap BUN Creatinine Est GFR ( Amer) Est GFR (Non-Af Amer) POC Glucose (mg/dL) 158 H 156 H 148 H Random Glucose Calcium Total Bilirubin AST ALT Alkaline Phosphatase Total Protein Albumin Globulin Albumin/Globulin Ratio Urine Color Urine Appearance Urine pH Ur Specific [place] Urine Protein Urine Glucose (UA) Urine Ketones Urine Blood Urine Nitrate Urine Bilirubin Urine Urobilinogen Ur Leukocyte Esterase Urine RBC Urine WBC Ur Epithelial Cells Urine Bacteria 03/27/17 07:00 03/27/17 07:00 Estimated Date of D/C: 04/02/17
--- NOTE | 2017-04-02 12:47 | PN ---
SUBJECTIVE: I saw Sena in the halls of the psychiatric floor. She is comfortable. She is asking to go home. She is not sure if she will be able to be discharged or not. She did have change in mentation, delirium, schizophrenia, hypertension, diabetes, hypothyroidism. She was a smoker, and hopefully, she will quit, but she wants to go home now. She tells me she is feeling better. She is participating. She is eating, she tells me. MEDICATIONS: She is on Ambien, Ativan, Cogentin, Cozaar, Cymbalta, Ecotrin, Geodon, Glucophage, insulin, Lopressor, Maalox, Microzide, milk of magnesia, Nicoderm, Norvasc, Protonix, Synthroid, and Tylenol. PHYSICAL EXAMINATION: VITAL SIGNS: This morning are 97.4 temperature, 87 pulse, 126/74 blood pressure, and 20 respiratory rate. HEENT: Head is atraumatic, normocephalic. HEART: Regular rate. LUNGS: Clear to auscultation. ABDOMEN: Soft, nontender. Positive bowel sounds, obese. EXTREMITIES: No edema. LABORATORY DATA: Last labs on the , she did well. Her last blood sugar was 137. Overall, she has improved as per Psychiatry. Infectious Disease said she has no infections at this time, and hopefully when Psychiatry feels she is ready, we will discharge her. In the meantime, we will continue aggressive psychiatric care, and from the Medicine's point of view, monitoring her making sure she is mentally okay. Avelino Antoine DO
[2017-04-02 14:53] LABS: PH,URINE 6.5 (4.7-8.0); URINE BILIRUBIN NEGATIVE (NEGATIVE); URINE BLOOD NEGATIVE (NEGATIVE); URINE GLUCOSE (UA) NEGATIVE (NEGATIVE); URINE KETONE NEGATIVE (NEGATIVE); URINE LEUKOCYTE ESTERASE SMALL Leu/uL (NEGATIVE); URINE PROTEIN NEGATIVE mg/dL (<30 mg/dL); URINE UROBILINOGEN 0.2 E.U./dL (<1 E.U./dL)
[2017-04-02 14:54] LABS: URINE APPEARANCE CLEAR (CLEAR); URINE COLOR YELLOW (YELLOW)
[2017-04-02 14:59] LABS: URINE RBC 0 - 2 /hpf (0-2)
[2017-04-02 15:00] LABS: URINE AMORPHOUS SEDIMENT MODERATE; URINE BACTERIA MANY (NEG)
[2017-04-03] MEDS: Pantoprazole 40 mg EC Tab PO SCH (08:08)
[2017-04-03] MEDS: Levothyroxine 25 MCG TAB PO SCH (08:08)
[2017-04-03] MEDS: Insulin Reg-MEDIUM-Coverage SC SCH ×4 (08:09→22:28)
--- NOTE | 2017-04-03 08:45 | PCM.PYCHPN ---
Psychiatric Progress Note - Psychiatric Progress Note Patient seen today, length of contact: 25 min Patient Chief Complaint: "good" Problems Identified/Issues Discussed: I reviewed recent notes and interviewed patient at bedside. Her grooming is a fair and she still seems more focused and less impulsive. Patient was not observed wandering this morning. Oriented to location, month and year. Patient again tells me that she feels "good". Her responses are more spontaneous and certain. Overall, patient does appear more organized. Staff notes indicate greater periods of lucidity and behavior is in better control. Patient denies hallucinations and delusions were not elicited this morning. She denies side effects from her medications, any new discomfort or pain. Tolerated EEG yesterday. Slept well last night and there were no behavioral issues overnight. Diagnostic Results: r/o schzophrenia r/o delirium (improving) Medication Change: No Medical Record Reviewed: Yes Mental Status Examination - Cognitive Function Orientation: Person, Place Memory: Impaired Attention: Poor (some improvement) Concentration: Poor (some improvement) Association: Loose Fund of Knowledge: WNL - Mood Mood: Other ( "good" ) - Affect Affect: Constricted (improving and more focused/reactive) - Speech Speech: Appropriate - Formal Thought Process Formal Thought Process: Delusions (not noted today), Paranoia (not noted today) , Loosening of associations (improving), Other (scattered, preoccupied and vague ) - Suicidal Ideation Suicidal Ideation: No - Homicidal Ideation Homicidal Ideation: No Goal/Treatment Plan - Goal/Treatment Plan Need for Continued Stay: Remain at risks for inpatient hospitalization, Severe depression anxiety, Discharge may exacerbated symptoms, Severe functional impairment Progress Toward Problem(s) and Goals/Treatment Plan: * Milieu/structure/supportive therapy * Geodon 20 mg po/IM q8 prn: agitation * Per Dr. More progress note on 03/31/17: pt was on invega sustenna 156mg IM q4 weeks (confirmed by SW), pt missed her shot on March 10, last dose was 03/23/17 next dose should be given 04/07/17 [facility] [facility] has this medication in stock, if pt will be here in [facility], it could be delivered * Ativan 1 mg po BID for anxiety * Ambien 10 mg po hs prn insomnia * Cymbalta 60mg po daily for depression * Appreciate f/u by Dr. Mendoza on 04/01/17~no new recommendations * Appreciate f/u by Dr. Antoine on 04/02/17~no new recommendations * Vitals reviewed and noted below: Selected Entries 04/02/17 04/02/17 04/02/17 06:55 09:26 09:28 Temperature 97.4 F L Pulse Rate 87 87 Respiratory 20 Rate Blood Pressure 126/74 126/74 126/74 04/02/17 04/02/17 15:00 16:06 Temperature Pulse Rate 84 84 Respiratory Rate Blood Pressure 94/62 L 94/62 L * No new floor labs noted thus far. * Patient rescinded 48 hr notice 03/25/17 * Prior weekend labs noted below: Laboratory Results - last 72 hr 03/25/17 03/25/17 03/25/17 12:00 12:06 16:41 WBC RBC Hgb Hct MCV MCH MCHC RDW Plt Count MPV Sodium Potassium Chloride Carbon Dioxide Anion Gap BUN Creatinine Est GFR ( Amer) Est GFR (Non-Af Amer) POC Glucose (mg/dL) 123 H 138 H Random Glucose Calcium Total Bilirubin AST ALT Alkaline Phosphatase Total Protein Albumin Globulin Albumin/Globulin Ratio Urine Color Dark yellow Urine Appearance Clear Urine pH 6.0 Ur Specific [place] 1.015 Urine Protein Negative Urine Glucose (UA) Negative Urine Ketones Trace H Urine Blood Negative Urine Nitrate Negative Urine Bilirubin Negative Urine Urobilinogen 0.2 Ur Leukocyte Esterase Small H Urine RBC 0 - 2 Urine WBC 5 - 10 Ur Epithelial Cells 6 - 8 Urine Bacteria Many 03/25/17 03/26/17 03/26/17 21:47 07:51 11:42 WBC RBC Hgb Hct MCV MCH MCHC RDW Plt Count MPV Sodium Potassium Chloride Carbon Dioxide Anion Gap BUN Creatinine Est GFR ( Amer) Est GFR (Non-Af Amer) POC Glucose (mg/dL) 183 H 156 H 165 H Random Glucose Calcium Total Bilirubin AST ALT Alkaline Phosphatase Total Protein Albumin Globulin Albumin/Globulin Ratio Urine Color Urine Appearance Urine pH Ur Specific [place] Urine Protein Urine Glucose (UA) Urine Ketones Urine Blood Urine Nitrate Urine Bilirubin Urine Urobilinogen Ur Leukocyte Esterase Urine RBC Urine WBC Ur Epithelial Cells Urine Bacteria 03/26/17 03/26/17 03/27/17 16:41 21:41 07:00 WBC 7.4 D RBC 4.43 Hgb 13.5 Hct 41.9 MCV 94.6 MCH 30.5 MCHC 32.2 RDW 13.5 Plt Count 224 MPV 12.0 H Sodium Potassium Chloride Carbon Dioxide Anion Gap BUN Creatinine Est GFR ( Amer) Est GFR (Non-Af Amer) POC Glucose (mg/dL) 125 H 140 H Random Glucose Calcium Total Bilirubin AST ALT Alkaline Phosphatase Total Protein Albumin Globulin Albumin/Globulin Ratio Urine Color Urine Appearance Urine pH Ur Specific [place] Urine Protein Urine Glucose (UA) Urine Ketones Urine Blood Urine Nitrate Urine Bilirubin Urine Urobilinogen Ur Leukocyte Esterase Urine RBC Urine WBC Ur Epithelial Cells Urine Bacteria 03/27/17 03/27/17 03/27/17 07:00 07:19 11:18 WBC RBC Hgb Hct MCV MCH MCHC RDW Plt Count MPV Sodium 141 Potassium 3.7 Chloride 104 Carbon Dioxide 28 Anion Gap 13 BUN 22 H Creatinine 0.7 Est GFR ( Amer) > 60 Est GFR (Non-Af Amer) > 60 POC Glucose (mg/dL) 144 H 143 H Random Glucose 146 H Calcium 9.9 Total Bilirubin 0.7 AST 30 ALT 46 Alkaline Phosphatase 58 Total Protein 6.4 Albumin 3.9 Globulin 2.4 Albumin/Globulin Ratio 1.6 Urine Color Urine Appearance Urine pH Ur Specific [place] Urine Protein Urine Glucose (UA) Urine Ketones Urine Blood Urine Nitrate Urine Bilirubin Urine Urobilinogen Ur Leukocyte Esterase Urine RBC Urine WBC Ur Epithelial Cells Urine Bacteria 03/27/17 03/27/17 03/28/17 16:18 21:23 07:14 WBC RBC Hgb Hct MCV MCH MCHC RDW Plt Count MPV Sodium Potassium Chloride Carbon Dioxide Anion Gap BUN Creatinine Est GFR ( Amer) Est GFR (Non-Af Amer) POC Glucose (mg/dL) 158 H 156 H 148 H Random Glucose Calcium Total Bilirubin AST ALT Alkaline Phosphatase Total Protein Albumin Globulin Albumin/Globulin Ratio Urine Color Urine Appearance Urine pH Ur Specific [place] Urine Protein Urine Glucose (UA) Urine Ketones Urine Blood Urine Nitrate Urine Bilirubin Urine Urobilinogen Ur Leukocyte Esterase Urine RBC Urine WBC Ur Epithelial Cells Urine Bacteria 03/27/17 07:00 03/27/17 07:00 Estimated Date of D/C: 04/02/17
--- NOTE | 2017-04-03 12:26 | PN ---
DATE: SUBJECTIVE: I saw Sena sitting up, doing paperwork and drawing. She is in good spirits. She knew me right away. She has been feeling well, taking her medications, participating, in no acute distress. PHYSICAL EXAMINATION: VITAL SIGNS: She has 98.5 temperature, 95 pulse, 145/76 blood pressure, and 20 respiratory rate. HEENT: Head is atraumatic, normocephalic. HEART: Regular rate. LUNGS: Clear to auscultation. ABDOMEN: Soft, obese. EXTREMITIES: No edema. MEDICATIONS: She is currently on Ambien, Ativan, Cogentin, Cozaar, Cymbalta, Ecotrin, Geodon, Glucophage, insulin, Lopressor, Maalox, Microzide, milk of magnesia, Nicoderm, Norvasc, Protonix, Synthroid, and Tylenol. LABORATORY DATA: White count 6.5, 13.9 hemoglobin, and 261 platelets on 03/30/2017. Last blood sugar was 148. ASSESSMENT AND PLAN: I do think she is improving. We will continue with aggressive treatment and care as per Psychiatry. She is here for change in mentation, delirium, schizophrenia, hypertension, diabetes, and hypothyroidism. She is a smoker, to quit. We will follow. Avelino Antoine DO MTDD
[2017-04-04] MEDS: Levothyroxine 25 MCG TAB PO SCH (07:45)
[2017-04-04] MEDS: Pantoprazole 40 mg EC Tab PO SCH (07:45)
[2017-04-04] MEDS: Insulin Reg-MEDIUM-Coverage SC SCH ×4 (07:46→21:44)
--- NOTE | 2017-04-04 09:02 | PCM.PYCHPN ---
Psychiatric Progress Note - Psychiatric Progress Note Patient seen today, length of contact: 25 min Patient Chief Complaint: "good" Problems Identified/Issues Discussed: I reviewed recent notes and interviewed patient at bedside. Her grooming is a fair and she definitely seems more in control, focused and less impulsive. Patient was not observed wandering the unit like she did last weekend. Oriented to location, month and year. Patient again tells me that she feels "good". Her responses are more spontaneous and certain. Overall, patient does appear more organized. Staff notes indicate greater periods of lucidity and behavior is more predictable. She is quieter and less intrusive. Patient denies hallucinations and delusions were not elicited this morning. She denies side effects from her medications, any new discomfort or pain. Tolerated EEG on Wednesday. Patient slept well last night and there were no behavioral issues over the weekend. Diagnostic Results: r/o schzophrenia r/o delirium (improving) Medication Change: No Medical Record Reviewed: Yes Mental Status Examination - Cognitive Function Orientation: Person, Place Memory: Impaired Attention: Poor (some improvement) Concentration: Poor (some improvement) Association: Loose Fund of Knowledge: WNL - Mood Mood: Other ( "good" ) - Affect Affect: Constricted (improving and more focused/reactive) - Speech Speech: Appropriate - Formal Thought Process Formal Thought Process: Delusions (not noted this weekend), Paranoia (not noted this weekend), Loosening of associations (improving), Other (scattered, preoccupied and vague) - Suicidal Ideation Suicidal Ideation: No - Homicidal Ideation Homicidal Ideation: No Goal/Treatment Plan - Goal/Treatment Plan Need for Continued Stay: Remain at risks for inpatient hospitalization, Severe depression anxiety, Discharge may exacerbated symptoms, Severe functional impairment Progress Toward Problem(s) and Goals/Treatment Plan: * Milieu/structure/supportive therapy * Geodon 20 mg po/IM q8 prn: agitation * Per Dr. More progress note on 03/31/17: pt was on invega sustenna 156mg IM q4 weeks (confirmed by SW), pt missed her shot on March 10, last dose was 03/23/17 next dose should be given 04/07/17 [facility] pharmacy has this medication in stock, if pt will be here in [facility], it could be delivered * Ativan 1 mg po BID for anxiety * Ambien 10 mg po hs prn insomnia * Cymbalta 60mg po daily for depression * Appreciate f/u by Dr. Mendoza on 04/01/17~no new recommendations * Appreciate f/u by Dr. Antoine on 04/02/17 and 04/03/17~no new recommendations, feels patient is improving * Vitals reviewed and noted below: Selected Entries 04/03/17 04/03/17 04/03/17 07:02 08:07 16:16 Temperature 98.5 F Pulse Rate 95 H 75 Respiratory 20 Rate Blood Pressure 139/91 H 145/76 95/56 L * No new weekend floor labs noted thus far. * Patient rescinded 48 hr notice 03/25/17 * Prior weekend labs noted below: Laboratory Results - last 72 hr 03/25/17 03/25/17 03/25/17 12:00 12:06 16:41 WBC RBC Hgb Hct MCV MCH MCHC RDW Plt Count MPV Sodium Potassium Chloride Carbon Dioxide Anion Gap BUN Creatinine Est GFR ( Amer) Est GFR (Non-Af Amer) POC Glucose (mg/dL) 123 H 138 H Random Glucose Calcium Total Bilirubin AST ALT Alkaline Phosphatase Total Protein Albumin Globulin Albumin/Globulin Ratio Urine Color Dark yellow Urine Appearance Clear Urine pH 6.0 Ur Specific [place] 1.015 Urine Protein Negative Urine Glucose (UA) Negative Urine Ketones Trace H Urine Blood Negative Urine Nitrate Negative Urine Bilirubin Negative Urine Urobilinogen 0.2 Ur Leukocyte Esterase Small H Urine RBC 0 - 2 Urine WBC 5 - 10 Ur Epithelial Cells 6 - 8 Urine Bacteria Many 03/25/17 03/26/17 03/26/17 21:47 07:51 11:42 WBC RBC Hgb Hct MCV MCH MCHC RDW Plt Count MPV Sodium Potassium Chloride Carbon Dioxide Anion Gap BUN Creatinine Est GFR ( Amer) Est GFR (Non-Af Amer) POC Glucose (mg/dL) 183 H 156 H 165 H Random Glucose Calcium Total Bilirubin AST ALT Alkaline Phosphatase Total Protein Albumin Globulin Albumin/Globulin Ratio Urine Color Urine Appearance Urine pH Ur Specific [place] Urine Protein Urine Glucose (UA) Urine Ketones Urine Blood Urine Nitrate Urine Bilirubin Urine Urobilinogen Ur Leukocyte Esterase Urine RBC Urine WBC Ur Epithelial Cells Urine Bacteria 03/26/17 03/26/17 03/27/17 16:41 21:41 07:00 WBC 7.4 D RBC 4.43 Hgb 13.5 Hct 41.9 MCV 94.6 MCH 30.5 MCHC 32.2 RDW 13.5 Plt Count 224 MPV 12.0 H Sodium Potassium Chloride Carbon Dioxide Anion Gap BUN Creatinine Est GFR ( Amer) Est GFR (Non-Af Amer) POC Glucose (mg/dL) 125 H 140 H Random Glucose Calcium Total Bilirubin AST ALT Alkaline Phosphatase Total Protein Albumin Globulin Albumin/Globulin Ratio Urine Color Urine Appearance Urine pH Ur Specific [place] Urine Protein Urine Glucose (UA) Urine Ketones Urine Blood Urine Nitrate Urine Bilirubin Urine Urobilinogen Ur Leukocyte Esterase Urine RBC Urine WBC Ur Epithelial Cells Urine Bacteria 03/27/17 03/27/17 03/27/17 07:00 07:19 11:18 WBC RBC Hgb Hct MCV MCH MCHC RDW Plt Count MPV Sodium 141 Potassium 3.7 Chloride 104 Carbon Dioxide 28 Anion Gap 13 BUN 22 H Creatinine 0.7 Est GFR ( Amer) > 60 Est GFR (Non-Af Amer) > 60 POC Glucose (mg/dL) 144 H 143 H Random Glucose 146 H Calcium 9.9 Total Bilirubin 0.7 AST 30 ALT 46 Alkaline Phosphatase 58 Total Protein 6.4 Albumin 3.9 Globulin 2.4 Albumin/Globulin Ratio 1.6 Urine Color Urine Appearance Urine pH Ur Specific [place] Urine Protein Urine Glucose (UA) Urine Ketones Urine Blood Urine Nitrate Urine Bilirubin Urine Urobilinogen Ur Leukocyte Esterase Urine RBC Urine WBC Ur Epithelial Cells Urine Bacteria 03/27/17 03/27/17 03/28/17 16:18 21:23 07:14 WBC RBC Hgb Hct MCV MCH MCHC RDW Plt Count MPV Sodium Potassium Chloride Carbon Dioxide Anion Gap BUN Creatinine Est GFR ( Amer) Est GFR (Non-Af Amer) POC Glucose (mg/dL) 158 H 156 H 148 H Random Glucose Calcium Total Bilirubin AST ALT Alkaline Phosphatase Total Protein Albumin Globulin Albumin/Globulin Ratio Urine Color Urine Appearance Urine pH Ur Specific [place] Urine Protein Urine Glucose (UA) Urine Ketones Urine Blood Urine Nitrate Urine Bilirubin Urine Urobilinogen Ur Leukocyte Esterase Urine RBC Urine WBC Ur Epithelial Cells Urine Bacteria 03/27/17 07:00 03/27/17 07:00 Estimated Date of D/C: 04/02/17
--- NOTE | 2017-04-05 00:31 | PN ---
SUBJECTIVE: I saw Sena this morning. She was about to eat lunch. She is very upset that she is still in the Psychiatric unit and would like to be discharged. She is also very anxious and asking for Ativan. She is already on Ativan q. 4 hours 1 mg, but I have her stat 0.5 right now, she is upset. She is now on Cipro for UTI, she just came off Augmentin. She is on losartan for blood pressure, Cymbalta, Ecotrin, Geodon, Glucophage for the diabetes, Lopressor, magnesium, Microzide, milk of magnesia, Nicoderm, Norvasc, Protonix, Synthroid, and Tylenol. She has good appetite. She is walking around, more alert and oriented. She understands the situation and would like to be going home she gets upset if blood pressure goes up. PHYSICAL EXAMINATION: VITAL SIGNS: She has 97.6 temperature, 89 pulse, 138/93 blood pressure, and 18 respiratory rate. HEENT: Head is atraumatic, normocephalic. HEART: Regular rate. LUNGS: Clear to auscultation. ABDOMEN: Soft, obese and nontender. EXTREMITIES: No edema. ASSESSMENT AND PLAN: I will order labs for tomorrow if she is still here. I added Cipro for Escherichia coli urinary tract infection. Encouraged her to drink more water. Gave her stat Ativan 0.5, now appears so calm down and feel better and as per Psychiatry, she is here for numerous reasons, change in mentation, delirium, schizophrenia, hypertension, diabetes, hypothyroidism, smoker and urinary tract infection. Avelino Antoine DO MTDD
[2017-04-05 07:49] LABS: HEMATOCRIT 43.2 % (36.0-48.0); MEAN CELL VOLUME 92.1 fl (80.0-105.0); MEAN CORPUSCULAR HEMOGLOBIN 31.3 pg (25.0-35.0); MEAN PLATELET VOLUME 10.6 fl (7.0-11.0); RED CELL DISTRIBUTION WIDTH 13.2 % (11.5-14.5); WHITE BLOOD COUNT 6.2 10^3/ul (4.5-11.0)
[2017-04-05] MEDS: Insulin Reg-MEDIUM-Coverage SC SCH ×4 (08:00→21:27)
[2017-04-05 08:06] LABS: ALB/GLOB RATIO 1.5 (1.1-1.8); ALKALINE PHOSPHATASE 68 U/L (38-126); ALT/SGPT 43 U/L (7-56); AST/SGOT 30 U/L (14-36); BILIRUBIN,TOTAL 0.4 mg/dL (0.2-1.3); BLOOD UREA NITROGEN 23 mg/dL (7-21); CALCIUM 9.9 mg/dL (8.4-10.5); CARBON DIOXIDE 22 mmol/L (21-33); CHLORIDE 104 mmol/L (98-107); GFR AFRICAN-AMERICAN > 60; GLUCOSE,RANDOM 152 mg/dL (70-110); POTASSIUM 3.9 mmol/L (3.6-5.0); SODIUM 139 mmol/L (132-148); TOTAL PROTEIN 7.5 g/dL (5.8-8.3)
[2017-04-05] MEDS: Levothyroxine 25 MCG TAB PO SCH (08:36)
[2017-04-05] MEDS: Pantoprazole 40 mg EC Tab PO SCH (08:37)
--- NOTE | 2017-04-05 13:37 | PCM.PYCHPN ---
Psychiatric Progress Note - Psychiatric Progress Note Patient seen today, length of contact: 25 min Patient Chief Complaint: "I am feeling a lot better and I think I am doing good"" Problems Identified/Issues Discussed: Patient is improved, her appearance is more organized and she is oriented x3, she continues to have periods of lucidity interspersed with periods of fairly severe confusion. When she is confused she has affective instability and can be very tearful or irritable. However, overall there appears to be more improvement. She continues to request discharge. Awaiting results of EEG and neuro follow up. Medication Change: No Medical Record Reviewed: Yes Mental Status Examination - Cognitive Function Orientation: Person, Place Memory: Impaired Attention: Poor (some improvement) Concentration: Poor (some improvement) Association: Loose Fund of Knowledge: WNL - Mood Mood: Other ( "good" ) - Affect Affect: Constricted (improving and more focused/reactive) - Speech Speech: Appropriate - Formal Thought Process Formal Thought Process: Delusions (not noted this weekend), Paranoia (not noted this weekend), Loosening of associations (improving), Other (scattered, preoccupied and vague) - Suicidal Ideation Suicidal Ideation: No - Homicidal Ideation Homicidal Ideation: No Goal/Treatment Plan - Goal/Treatment Plan Need for Continued Stay: Remain at risks for inpatient hospitalization, Severe depression anxiety, Discharge may exacerbated symptoms, Severe functional impairment Estimated Date of D/C: 04/02/17
--- NOTE | 2017-04-05 13:55 | PN ---
DATE: SUBJECTIVE: I saw Sena in her room, she is getting dressed. She is alert, she is comfortable, and she is smiling. She slept well and in good spirits. She is hoping that she can go home today. She is not sure, but overall she is improved. MEDICATIONS: She is on Ambien, Ativan, Cipro for urinary tract infection, Cozaar, Cymbalta, Ecotrin, Geodon, Glucophage, insulin, Lopressor, Maalox, Microzide, milk of magnesia, Nicoderm, Norvasc, Protonix, Synthroid and Tylenol. PHYSICAL EXAMINATION: VITAL SIGNS: She has 97.6 temperature, 89 pulse, 123/82 blood pressure, and 18 respiratory rate. HEENT: Head is atraumatic and normocephalic. HEART: Regular rate. LUNGS: Clear to auscultation. ABDOMEN: Soft, obese, and nontender. EXTREMITIES: No edema. LABORATORY DATA: Last blood tests from , she has 6.2 white count, 14.7 hemoglobin and 43.2 hematocrit with 273 platelets. Sodium is 139, potassium is 3.9, BUN is 23, and creatinine is 0.7. GFR is greater than 60. Sugar is 152. Calcium is 9.9. Total bilirubin is 0.4. AST is 30, ALT is 43, and alkaline phosphatase is 68. Total protein is 7.5 and albumin is 4.5. ASSESSMENT AND PLAN: She is being seen by Psychiatry. She did have change in mentation, delirium, schizophrenia, urinary tract infection, hypertension, diabetes, and hypothyroid. She is a smoker hoping that she would not smoke again. I will see her on the outpatient also if she is discharged. Otherwise continue with aggressive treatment and care per psychiatry. She did very well with her blood tests. Avelino Antoine DO
--- NOTE | 2017-04-05 15:38 | CP.PCM.PN ---
Subjective - Date & Time of Evaluation Date of Evaluation: 04/05/17 Time of Evaluation: 11:05 - Subjective Subjective: Comfortable, no fevers, not in distress. Objective - Vital Signs/Intake and Output Vital Signs (last 24 hours): Temp Pulse Resp BP Pulse Ox 97.6 F 80 18 140/80 96 04/04/17 06:50 04/05/17 08:34 04/04/17 06:50 04/05/17 08:35 03/26/17 07:00 - Medications Medications: Current Medications Acetaminophen (Tylenol 325mg Tab) 650 mg PO Q4H PRN PRN Reason: Pain, Mild (1-3) Last Admin: 03/17/17 09:21 Dose: 650 mg Al Hydrox/Mg Hydrox/Simethicone (Maalox Plus 30 Ml) 30 ml PO DAILY PRN PRN Reason: Upset Stomach Amlodipine Besylate (Norvasc) 10 mg PO DAILY [facility] Last Admin: 04/05/17 08:35 Dose: 10 mg Aspirin (Ecotrin) 81 mg PO DAILY [facility] Last Admin: 04/05/17 08:37 Dose: 81 mg Ciprofloxacin (Cipro) 500 mg PO Q12 KALLI PRN Reason: Protocol Stop: 04/05/17 11:25 Last Admin: 04/05/17 05:49 Dose: 500 mg Duloxetine HCl (Cymbalta) 60 mg PO DAILY [facility] Last Admin: 04/05/17 08:36 Dose: 60 mg Hydrochlorothiazide (Microzide) 12.5 mg PO DAILY [facility] Last Admin: 04/05/17 08:37 Dose: 12.5 mg Insulin Human Regular (Humulin R Med) 0 units SC ACHS KALLI PRN Reason: Protocol Last Admin: 04/05/17 08:00 Dose: 1 units Levothyroxine Sodium (Synthroid) 25 mcg PO ACB KALLI Last Admin: 04/05/17 08:36 Dose: 25 mcg Lorazepam (Ativan) 1 mg IM Q4H PRN; Protocol PRN Reason: Anxiety Last Admin: 03/29/17 03:37 Dose: 1 mg Lorazepam (Ativan) 1 mg PO BID KALLI PRN Reason: Protocol Last Admin: 04/05/17 08:36 Dose: 1 mg Losartan Potassium (Cozaar) 100 mg PO DAILY [facility] Last Admin: 04/05/17 08:36 Dose: 100 mg Magnesium Hydroxide (Milk Of Magnesia) 30 ml PO DAILY PRN PRN Reason: Constipation Metformin HCl (Glucophage) 500 mg PO BID [facility] Last Admin: 04/05/17 08:36 Dose: 500 mg Metoprolol Tartrate (Lopressor) 12.5 mg PO BRKDIN [facility] Last Admin: 04/05/17 08:34 Dose: 12.5 mg Nicotine (Nicoderm Cq) 1 patch TD DAILY [facility] Last Admin: 04/05/17 08:33 Dose: 1 patch Pantoprazole Sodium (Protonix Ec Tab) 40 mg PO ACB [facility] Last Admin: 04/05/17 08:37 Dose: 40 mg Ziprasidone (Geodon Inj) 20 mg IM Q8H PRN; Protocol PRN Reason: severe agitation Last Admin: 03/29/17 00:24 Dose: 20 mg Ziprasidone (Geodon Cap) 20 mg PO Q8H PRN; Protocol PRN Reason: Agitation Zolpidem Tartrate (Ambien) 10 mg PO HS PRN; Protocol PRN Reason: Insomnia Last Admin: 04/03/17 21:26 Dose: 10 mg - Labs Labs: 04/05/17 07:30 04/05/17 07:30 - Constitutional Appears: Non-toxic - Head Exam Head Exam: NORMAL INSPECTION - ENT Exam ENT Exam: Mucous Membranes Moist - Neck Exam Neck Exam: absent: Meningismus - Respiratory Exam Respiratory Exam: Decreased Breath Sounds - Cardiovascular Exam Cardiovascular Exam: +S1, +S2 - GI/Abdominal Exam GI & Abdominal Exam: Soft. absent: Tenderness Assessment and Plan - Assessment and Plan (Free Text) Plan: Assessment altered mental status, probably delirium associated with schizophrenia; no evidence of infection schizophrenia HTN hypothyroidism history of bronchitis obesity with BMI 38 Plan Will continue to monitor off antibiotics since she is at risk for hospital- acquired infections
[2017-04-06 07:05] VITALS: BP 123/73; PULSE 94; RESP 22; TEMP 97.3
[2017-04-06] MEDS: Pantoprazole 40 mg EC Tab PO SCH (09:22)
[2017-04-06] MEDS: Levothyroxine 25 MCG TAB PO SCH (09:22)
[2017-04-06] MEDS: Insulin Reg-MEDIUM-Coverage SC SCH (09:25)
--- NOTE | 2017-04-06 10:22 | PN ---
DATE: SUBJECTIVE: She was walking in the halls. She gave me a hug. She is telling me that she is going home today, which is very good. She is in good spirits. MEDICATIONS: She is on Ambien, Ativan, Cozaar, Cymbalta, Ecotrin, Geodon, Glucophage, insulin, Lopressor, Maalox, Microzide, milk of magnesia, Nicoderm, Norvasc, Protonix, Synthroid, and Tylenol. PHYSICAL EXAMINATION: VITAL SIGNS: Temperature 97.3, pulse 94, blood pressure 123/72, and respiratory rate 22. HEENT: Head is atraumatic and normocephalic. Throat is moist. NECK: Supple. HEART: Regular rate. LUNGS: Clear to auscultation. ABDOMEN: Soft, obese, and nontender. EXTREMITIES: No edema. LABORATORY DATA: She had blood tests on the . CBC was good. SMA-20 was good. BUN 23, last blood sugar was 132. ASSESSMENT AND PLAN: I discussed that she is not allowed to smoke cigarettes anymore. She has been doing well. She was here for change in mentation, delirium, schizophrenia, urinary tract infection, hypertension, diabetes, hypothyroid, and she is a smoker, and she tells me she is going to follow up in my office next week. I told her to bring her medications with her and she is not allowed to smoke anymore. Avelino Antoine DO
--- NOTE | 2017-04-06 13:03 | CP.PCM.DIS ---
Provider - Provider Date of Admission: 03/16/17 19:14 Attending physician: Ewa More MD Time Spent in preparation of Discharge (in minutes): 25 Hospital Course - Lab Results Lab Results: Micro Results 04/02/17 14:10 Urine,Clean Catch Urine Culture - Final Escherichia Coli 03/25/17 14:15 Blood Blood Culture - Final NO GROWTH AFTER 5 DAYS 03/25/17 14:15 Blood Gram Stain - Final TEST NOT PERFORMED Most Recent Lab Values WBC 6.2 10^3/ul (4.5-11.0) 04/05/17 07:30 RBC 4.69 10^6/uL (3.5-6.1) 04/05/17 07:30 Hgb 14.7 g/dL (12.0-16.0) 04/05/17 07:30 Hct 43.2 % (36.0-48.0) 04/05/17 07:30 MCV 92.1 fl (80.0-105.0) 04/05/17 07:30 MCH 31.3 pg (25.0-35.0) 04/05/17 07:30 MCHC 34.0 g/dl (31.0-37.0) 04/05/17 07:30 RDW 13.2 % (11.5-14.5) 04/05/17 07:30 Plt Count 273 10^3/uL (120.0-450.0) 04/05/17 07:30 MPV 10.6 fl (7.0-11.0) 04/05/17 07:30 Gran % 78.0 % (50.0-68.0) H 03/23/17 09:00 Lymph % (Auto) 15.6 % (22.0-35.0) L 03/23/17 09:00 [place] % (Auto) 5.6 % (1.0-6.0) 03/23/17 09:00 Eos % (Auto) 0.5 % (1.5-5.0) L 03/23/17 09:00 Baso % (Auto) 0.3 % (0.0-3.0) 03/23/17 09:00 Gran # 5.68 (1.4-6.5) 03/23/17 09:00 Lymph # 1.1 (1.2-3.4) L 03/23/17 09:00 [place] # 0.4 (0.1-0.6) 03/23/17 09:00 Eos # 0.0 (0.0-0.7) 03/23/17 09:00 Baso # 0.02 K/mm3 (0.0-2.0) 03/23/17 09:00 Sodium 139 mmol/L (132-148) 04/05/17 07:30 Potassium 3.9 mmol/L (3.6-5.0) 04/05/17 07:30 Chloride 104 mmol/L (98-107) 04/05/17 07:30 Carbon Dioxide 22 mmol/L (21-33) 04/05/17 07:30 Anion Gap 16 (10-20) 04/05/17 07:30 BUN 23 mg/dL (7-21) H 04/05/17 07:30 Creatinine 0.7 mg/dl (0.7-1.2) 04/05/17 07:30 Est GFR ( Amer) > 60 04/05/17 07:30 Est GFR (Non-Af Amer) > 60 04/05/17 07:30 POC Glucose (mg/dL) 199 mg/dL (65-110) H 04/06/17 11:31 Random Glucose 152 mg/dL (70-110) H 04/05/17 07:30 Fasting Glucose 165 mg/dL (65-110) H 03/17/17 06:45 Hemoglobin A1c 7.9 % (4.2-6.5) H D 03/18/17 07:20 Calcium 9.9 mg/dL (8.4-10.5) 04/05/17 07:30 Magnesium 1.8 mg/dL (1.7-2.2) 03/15/17 18:37 Total Bilirubin 0.4 mg/dL (0.2-1.3) 04/05/17 07:30 AST 30 U/L (14-36) 04/05/17 07:30 ALT 43 U/L (7-56) 04/05/17 07:30 Alkaline Phosphatase 68 U/L (38-126) 04/05/17 07:30 Total Protein 7.5 g/dL (5.8-8.3) 04/05/17 07:30 Albumin 4.5 g/dL (3.0-4.8) 04/05/17 07:30 Globulin 3.0 gm/dL 04/05/17 07:30 Albumin/Globulin Ratio 1.5 (1.1-1.8) 04/05/17 07:30 Triglycerides 469 mg/dL (35-160) H 03/17/17 06:45 Cholesterol 306 mg/dL (130-200) H 03/17/17 06:45 LDL Cholesterol Direct 182 mg/dL (0-129) H 03/17/17 06:45 HDL Cholesterol 42 mg/dL (29-60) 03/17/17 06:45 Procalcitonin < 0.05 NG/ML (0.19-0.49) L 03/30/17 07:45 TSH 3rd Generation 1.36 mIU/mL (0.46-4.68) 03/18/17 07:20 Urine Color Yellow (YELLOW) 04/02/17 14:10 Urine Appearance Clear (CLEAR) 04/02/17 14:10 Urine pH 6.5 (4.7-8.0) 04/02/17 14:10 Ur Specific [place] 1.015 (1.005-1.035) 04/02/17 14:10 Urine Protein Negative mg/dL (<30 mg/dL) 04/02/17 14:10 Urine Glucose (UA) Negative mg/dL (NEGATIVE) 04/02/17 14:10 Urine Ketones Negative mg/dL (NEGATIVE) 04/02/17 14:10 Urine Blood Negative (NEGATIVE) 04/02/17 14:10 Urine Nitrate Negative (NEGATIVE) 04/02/17 14:10 Urine Bilirubin Negative (NEGATIVE) 04/02/17 14:10 Urine Urobilinogen 0.2 E.U./dL (<1 E.U./dL) 04/02/17 14:10 Ur Leukocyte Esterase Small [place]/uL (NEGATIVE) H 04/02/17 14:10 Urine RBC 0 - 2 /hpf (0-2) 04/02/17 14:10 Urine WBC 5 - 10 /hpf (0-6) 04/02/17 14:10 Ur Epithelial Cells 4 - 5 /hpf (0-5) 04/02/17 14:10 Amorphous Sediment Moderate 04/02/17 14:10 Urine Bacteria Many (NEG) 04/02/17 14:10 Urine Other Uyeast 04/02/17 14:10 Salicylates < 1 mg/dL (2.0-20.0) L 03/15/17 18:37 Urine Opiates Screen Negative (NEGATIVE) 03/23/17 16:27 Urine Methadone Screen Negative (NEGATIVE) 03/23/17 16:27 Acetaminophen < 10.0 ug/ml (10.0-20.0) L 03/15/17 18:37 Ur Barbiturates Screen Negative (NEGATIVE) 03/23/17 16:27 Ur Phencyclidine Scrn Negative (NEGATIVE) 03/23/17 16:27 Ur Amphetamines Screen Negative (NEGATIVE) 03/23/17 16:27 U Benzodiazepines Scrn Negative (NEGATIVE) 03/23/17 16:27 U Oth Cocaine Metabols Negative (NEGATIVE) 03/23/17 16:27 U Cannabinoids Screen Negative (NEGATIVE) 03/23/17 16:27 Alcohol, Quantitative < 10 mg/dL (0-10) 03/15/17 18:37 HIV 1&2 Ag/Ab, 4th Gen Nonreactive (Nonreactive) 03/30/17 07:45 - Hospital Course Hospital Course: Patient was admitted from the Emergency room on 03/15/2017 for hallucinations, delusions and grossly psychotic. She took some time to stabilize, with psychosis and confusion persisting. She medically has a history of COPD, HTN, Hypothyroidism and obesity. During her hospitalization she was found to have a urinary tract infection which may have prolonged her psychosis. Discharge Exam - Head Exam Head Exam: NORMAL INSPECTION - Psychiatric Exam Psychiatric exam: Normal Affect, Normal Mood Discharge Plan - Discharge Medications Prescriptions: amLODIPine [Norvasc] 10 mg PO DAILY #14 tab Aspirin [Lo-Dose Aspirin EC] 81 mg PO DAILY #20 tablet. Benztropine [Cogentin] 1 tab PO DAILY #14 tab DULoxetine [Cymbalta] 60 mg PO DAILY #14 ecc hydroCHLOROthiazide [Microzide] 12.5 mg PO DAILY #15 cap Insulin Human Regular-MED [HumuLIN R MED] 1 unit SC ACHS #1 ml Levothyroxine [Synthroid] 0.05 mg PO DAILY #14 tab LORazepam [Ativan] 1 mg PO Q6 PRN #30 tab PRN Reason: Anxiety LORazepam [Ativan] 1 mg PO BID #30 tab metFORMIN [glucOPHAGE] 500 mg PO BID #30 tab Metoprolol Tartrate [Lopressor] 12.5 mg PO BRKDIN #14 tab Paliperidone Palmitate [Invega Sustenna] 156 mg IM .MONTHLY #1 syr Pantoprazole Sodium [Protonix] 40 mg PO DAILY #14 tablet. Valsartan/Hydrochlorothiazide [Valsartan-Hctz 160-12.5 mg Tab] 1 tab PO DAILY # 14 tablet Zolpidem [Ambien] 10 mg PO HS PRN #14 tab PRN Reason: Insomnia - Follow Up Plan Condition: STABLE Disposition: HOME/ ROUTINE Instructions: Schizophrenia (DC), Suicide Prevention for Adults (DC) Referrals: Carly Rod [Other] (Patient to follow up at [facility] on April 21, 2017 at 10am for next injection. )
--- NOTE | 2017-04-06 18:01 | PN ---
DATE: 04/06/2017 SUBJECTIVE: The patient is in bed, in no acute distress. PHYSICAL EXAMINATION: VITAL SIGNS: Temperature is 98, blood pressure is 120/70, respiratory rate of 22. HEENT: Unremarkable. NECK: Supple. LUNGS: Have decreased breath sounds. HEART: Normal S1, S2. ABDOMEN: Soft, nontender. LABORATORY EXAMINATION: Reveals a white count of 6.2, hemoglobin of 14 and BUN of 23, creatinine of 0.7. The patient's HIV is nonreactive. Microbiology is reviewed. ASSESSMENT AND PLAN: A 61-year-old female seen earlier this morning in psychiatric floor with altered mental status, probably delirium associated with schizophrenia has now resolved. No evidence of infection at this point in a patient with history of schizophrenia, hypertension, hypothyroidism, all cultures are negative. Patient is off of antibiotics. However, risk for developing nosocomial infections. Jc Mendoza MD
== END 2017-04-06 14:25 | disposition home or self-care (01) | DRG 885 ==
LOC: ED 18:03 → ERH 03-16 19:14 → PSYC 03-16 20:17
PROVIDERS: ADMIT Psychiatry & Neurology Psychiatry; ATTEND Psychiatry & Neurology Psychiatry
DX: F20.9 Schizophrenia, unspecified (principal); F05 Delirium due to known physiological condition; N39.0 Urinary tract infection, site not specified; F31.9 Bipolar disorder, unspecified; E11.65 Type 2 diabetes mellitus with hyperglycemia; I11.0 Hypertensive heart disease with heart failure; I50.9 Heart failure, unspecified; E03.9 Hypothyroidism, unspecified; J44.9 Chronic obstructive pulmonary disease, unspecified; K21.9 Gastro-esophageal reflux disease without esophagitis; E78.00 Pure hypercholesterolemia, unspecified; F41.9 Anxiety disorder, unspecified; F17.200 Nicotine dependence, unspecified, uncomplicated; E66.9 Obesity, unspecified; G47.00 Insomnia, unspecified; B96.20 Unspecified Escherichia coli [E. coli] as the cause of diseases classified elsewhere; Z68.38 Body mass index [BMI] 38.0-38.9, adult; Z79.4 Long term (current) use of insulin; Z79.82 Long term (current) use of aspirin

== ENCOUNTER 2017-04-16 17:49 | Inpatient (IN) | payer MEDICARE, BC ==
[2017-04-16 17:50] VITALS: PULSE 89; BMI 38.7
--- NOTE | 2017-04-16 18:23 | ED PDOC ---
Arrival/HPI - General Historian: Patient, EMS, Other (RN) - History of Present Illness Time/Duration: Other (see hpi) Context: Home <Al Syed - Last Filed: 04/16/17 21:22> <Laurel Keen - Last Filed: 04/16/17 23:11> - General Chief Complaint: Psychiatric Evaluation Time Seen by Provider: 04/16/17 18:23 - History of Present Illness Narrative History of Present Illness (Text): 04/16/17 18:23 This 61 yo female with pmh schizophrenia, dm, is brought to this ED by BLS for PES evaluation. According to BLS, son call ambulance. Patient has visual hallucination. Patient stated there are people in the house, drinking, been loud, and they wouldn't leave the house. Patient denies other somatic complains. (Al Syed) Past Medical History - Provider Review Nursing Documentation Reviewed: Yes - Infectious Disease Hx of Infectious Diseases: None - Cardiac Hx Cardiac Disorders: Yes Hx Congestive Heart Failure: Yes Hx Hypertension: Yes - Pulmonary Hx Respiratory Disorders: Yes Hx Asthma: Yes - Neurological Hx Neurological Disorder: No - HEENT Hx HEENT Disorder: No - Renal Hx Renal Disorder: No - Endocrine/Metabolic Hx Endocrine Disorders: Yes Hx Diabetes Mellitus Type 2: Yes Hx Hypothyroidism: Yes - Hematological/Oncological Hx Blood Disorders: No - Integumentary Hx Dermatological Disorder: No - Musculoskeletal/Rheumatological Hx Falls: No - Gastrointestinal Hx Gastrointestinal Disorders: No - Genitourinary/Gynecological Hx Genitourinary Disorders: No - Psychiatric Hx Psychophysiologic Disorder: Yes Hx Anxiety: Yes Hx Bipolar Disorder: Yes Hx Depression: Yes Hx Substance Use: No - Surgical History Hx Cardiac Catheterization: Yes Hx Section: Yes Hx Cholecystectomy: Yes Hx Orthopedic Surgery: Yes (Bilateral ankle reconstruction, back surgery) - Anesthesia Hx Anesthesia: No <Al Syed P - Last Filed: 04/16/17 21:22> Family/Social History - Physician Review Nursing Documentation Reviewed: Yes Family/Social History: Other (noncontributory) Smoking Status: Never Smoked Hx Alcohol Use: No Hx Substance Use: No 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 <Al Syed P - Last Filed: 04/16/17 21:22> Allergies/Home Meds <Al Syed P - Last Filed: 04/16/17 21:22> <Laurel Keen - Last Filed: 04/16/17 23:11> Allergies/Adverse Reactions: Allergies No Known Allergies Allergy (Verified 03/17/17 00:40) Home Medications: Home Meds Medication Instructions Recorded Confirmed Tolterodine Tartrate [Tolterodine 1 tab PO DAILY 02/14/17 03/17/17 Tartrate ER] Review of Systems - Review of Systems Constitutional: Normal. absent: Fatigue, Weight Change, Fevers Eyes: Normal ENT: Normal Respiratory: Normal. absent: SOB, Cough, Sputum Cardiovascular: Normal. absent: Chest Pain, Palpitations Gastrointestinal: Normal Genitourinary Female: Normal Musculoskeletal: Normal Skin: Normal Neurological: Normal Endocrine: Normal Hemo/Lymphatic: Normal Psychiatric: Normal. absent: Anxiety, Depression, Suicidal Ideation <Al Syed P - Last Filed: 04/16/17 21:22> Physical Exam Temperature: Afebrile Blood Pressure: Normal Pulse: Regular Respiratory Rate: Normal Appearance: Positive for: Well-Appearing, Non-Toxic, Comfortable Pain Distress: None Mental Status: Positive for: other (anxious) - Systems Exam Head: Present: Atraumatic, Normocephalic Pupils: Present: PERRL Extroacular Muscles: Present: EOMI Conjunctiva: Present: Normal Mouth: Present: Moist Mucous Membranes Neck: Present: Normal Range of Motion Respiratory/Chest: Present: Clear to Auscultation, Good Air Exchange. No: Respiratory Distress, Accessory Muscle Use Cardiovascular: Present: Regular Rate and Rhythm, Normal S1, S2. No: Murmurs Abdomen: Present: Normal Bowel Sounds. No: Tenderness, Distention, Peritoneal Signs Back: Present: Normal Inspection Upper Extremity: Present: Normal Inspection, Normal ROM. No: Cyanosis, Edema Lower Extremity: Present: Normal Inspection, Normal ROM. No: Edema Neurological: Present: GCS=15, CN II-XII Intact, Speech Normal, Motor Func Grossly Intact, Normal Sensory Function, Normal Cerebellar Funct, Gait Normal Skin: Present: Warm, Dry, Normal Color. No: Rashes Psychiatric: Present: Alert, Anxious, Depressed Mood, Other (Patient is not alert to time, or person) <Al Syed P - Last Filed: 04/16/17 21:22> Vital Signs Temp Pulse Resp BP Pulse Ox 04/16/17 20:00 113 H 18 169/95 H 95 04/16/17 18:07 98.7 F 112 H 19 154/90 H 95 Medical Decision Making Re-evaluation Time: 21:08 Reassessment Condition: Re-examined, Improving,but remains with symptoms - Lab Interpretations I have reviewed the lab results: Yes Interpretation: Abnormal lab values (kypokalemia) - EKG Interpretation Interpreted by ED Physician: Yes (sinus tachycardia @116bpm. No ST changes) Type: 12 lead EKG Comparison: No previous EKG avail. <Al Syed - Last Filed: 04/16/17 21:22> <Laurel Keen - Last Filed: 04/16/17 23:11> ED Course and Treatment: 04/16/17 19:41 PES screener is aware of patient history, and symptoms. 04/16/17 21:05 Patient continues with tachycardia. Patient has hypokalemia, and patient is taking Tolterodine, which it is contraindicated to take Potassium PO. Cardiac Iso, and BNP were added for labs. Pending UA Patient is aware of admission. 04/16/17 21:[address] Leonor Granda regarding patient complains, physical exam, labs. She agreed with observation (Al Syed) 04/16/17 22:45 Patient seen and evaluated with PA. I reviewed patient's past records and evaluated patient. Patient reportedly experiencing hallucinations, she denies drug or alcohol abuse. No trauma noted. On exam, she is tachycardic and hypertensive. She is intermittently agitated, and screaming in the ED. PES consulted. Ativan po given as patient screaming and yelling in ED intermittently. On re-evaluation, she is occasionally cooperative, but then intermittently confused. No headache. No fever. No head traum noted. Tachycardia improved but persistent. Due to significant past cardiac and pulmonary history, elevated lactate, will admit to telemetry observation for serial exams to clear for PES evaluation. At this time, no fever, wbc unremarkable. UA pending. CXR unremarkable. EKG with no acute st elevations. Admission originally placed to hospitalist, patient now states Dr. Pastora Antoine is her physician. Will discuss case with Dr. Oropeza, covering for DR. Antoine. Will recommend monitoring overnight for serial neuro exams, and heart rate. 04/16/17 22:[address] earlier this month which was unremarkable. Patient had cardiac cath this year revealed nonobstructive cad Patient had vq scan earlier this year low prob for PE. She is not hypoxic. Has no calf pain. Initial card isos unremarkable. She is poor historian given currently mental state, thus will admit to telemetry to monitor symptoms. 04/16/17 23:[address] Oropeza at 2310. (Laurel Keen) - Lab Interpretations Lab Results: 04/16/17 18:32 04/16/17 18:32 Lab Results 04/16/17 18:34: POC Glucose (mg/dL) 165 H 04/16/17 18:32: Alcohol, Quantitative < 10 04/16/17 18:32: Salicylates < 1 L, Acetaminophen < 10.0 L 04/16/17 18:32: Sodium 139, Potassium 3.1 L, Chloride 101, Carbon Dioxide 28, Anion Gap 13, BUN 12, Creatinine 0.6 L, Est GFR ( Amer) > 60, Est GFR ( Non-Af Amer) > 60, Random Glucose 190 H, Calcium 9.9, Total Bilirubin 0.5, AST 30, ALT 49, Alkaline Phosphatase 98, Total Protein 7.6, Albumin 4.4, Globulin 3.2, Albumin/Globulin Ratio 1.4 04/16/17 18:32: WBC 8.2 D, RBC 4.55, Hgb 14.1, Hct 41.3, MCV 90.8, MCH 31.0, MCHC 34.1, RDW 13.2, Plt Count 266, MPV 11.1 H, Gran % 66.1, Lymph % (Auto) 24.9 , Arroyo % (Auto) 6.1 H, Eos % (Auto) 2.7, Baso % (Auto) 0.2, Gran # 5.38, Lymph # 2.0, Arroyo # 0.5, Eos # 0.2, Baso # 0.02 - RAD Interpretation Narrative RAD Interpretations (Text): 04/16/17 21:10 Chest x-rays: No infiltrates or pleural effusion (Al Syed P) Radiology Orders: 04/16/17 18:24 CHEST PORTABLE [RAD] Stat - Medication Orders Current Medication Orders: Potassium Chloride (Potassium Chloride 10 Meq/100 Ml) 10 meq in 100 mls @ 50 mls/hr IVPB Q2H KALLI Stop: 04/17/17 00:29 Last Admin: 04/16/17 21:55 Dose: 50 mls/hr eMAR Start Stop Document 04/16/17 21:55 JOL (Rec: 04/16/17 22:12 JOL [id number]) Intravenous Solution Start Date 04/16/17 Start Time 21:55 End Date 04/16/17 End time 23:55 Total Infusion Time 120 Discontinued Medications Lorazepam (Ativan) 1 mg PO ONCE ONE PRN Reason: Protocol Stop: 04/16/17 18:39 Last Admin: 04/16/17 18:48 Dose: 1 mg Disposition/Present on Arrival - Present on Arrival Any Indicators Present on Arrival: No History of DVT/PE: No History of Uncontrolled Diabetes: No Urinary Catheter: No History of Decub. Ulcer: No History Surgical Site Infection Following: None - Disposition Have Diagnosis and Disposition been Completed?: Yes <Al Syed - Last Filed: 04/16/17 21:22> - Disposition Disposition Time: 22:51 Patient Plan: Admission <Laurel Keen - Last Filed: 04/16/17 23:11> - Disposition Diagnosis: Hypokalemia, Tachycardia, Altered mental status Disposition: HOSPITALIZED Patient Problems: Current Active Problems Problem Status Onset Altered mental status Acute Hypokalemia Acute Tachycardia Acute Condition: FAIR
[2017-04-16 18:40] LABS: BASO # 0.02 K/mm3 (0.0-2.0); BASO % 0.2 % (0.0-3.0); EOS # 0.2 (0.0-0.7); EOS % 2.7 % (1.5-5.0); GRAN # 5.38 (1.4-6.5); GRAN % 66.1 % (50.0-68.0); HEMATOCRIT 41.3 % (36.0-48.0); LYMPH % 24.9 % (22.0-35.0); MEAN CELL VOLUME 90.8 fl (80.0-105.0); MEAN CORPUSCULAR HGB CONC 34.1 g/dl (31.0-37.0); MEAN PLATELET VOLUME 11.1 fl (7.0-11.0); MONO # 0.5 (0.1-0.6); MONO % 6.1 % (1.0-6.0); RED CELL DISTRIBUTION WIDTH 13.2 % (11.5-14.5); WHITE BLOOD COUNT 8.2 10^3/ul (4.5-11.0)
[2017-04-16 19:34] LABS: ALB/GLOB RATIO 1.4 (1.1-1.8); ALKALINE PHOSPHATASE 98 U/L (38-126); ALT/SGPT 49 U/L (7-56); AST/SGOT 30 U/L (14-36); BILIRUBIN,TOTAL 0.5 mg/dL (0.2-1.3); BLOOD UREA NITROGEN 12 mg/dL (7-21); CALCIUM 9.9 mg/dL (8.4-10.5); CARBON DIOXIDE 28 mmol/L (21-33); CHLORIDE 101 mmol/L (98-107); GFR AFRICAN-AMERICAN > 60; GLUCOSE,RANDOM 190 mg/dL (70-110); POTASSIUM 3.1 mmol/L (3.6-5.0); SODIUM 139 mmol/L (132-148); TOTAL PROTEIN 7.6 g/dL (5.8-8.3)
[2017-04-16] MEDS ORDERED: Potassium Chloride 40 mEq/30 ml LIQ UD PO STA (19:46)
[2017-04-16] MEDS ORDERED: Potassium Chloride 20 mEq ER Tab PO STA (19:55)
[2017-04-16 21:58] LABS: VENOUS BLOOD GAS BASE EXCESS 3.6 mmol/L (0.0-2.0); VENOUS BLOOD PH 7.37 (7.32-7.43)
[2017-04-16 22:22] LABS: TROPONIN I < 0.01 ng/mL
[2017-04-17 01:27] LABS: VENOUS BLOOD GAS BASE EXCESS 3.1 mmol/L (0.0-2.0); VENOUS BLOOD PH 7.37 (7.32-7.43)
[2017-04-17 03:01] LABS: URINE BILIRUBIN NEGATIVE (NEGATIVE); URINE BLOOD NEGATIVE (NEGATIVE); URINE GLUCOSE (UA) NEGATIVE (NEGATIVE); URINE KETONE NEGATIVE (NEGATIVE); URINE LEUKOCYTE ESTERASE SMALL Leu/uL (NEGATIVE); URINE PROTEIN NEGATIVE mg/dL (<30 mg/dL); URINE UROBILINOGEN 0.2 E.U./dL (<1 E.U./dL)
[2017-04-17 03:03] LABS: URINE APPEARANCE CLEAR (CLEAR); URINE COLOR YELLOW (YELLOW)
[2017-04-17 03:31] LABS: URINE BACTERIA MOD (NEG); URINE RBC 0 - 2 /hpf (0-2)
--- NOTE | 2017-04-17 07:21 | CP.PCM.PN ---
Subjective - Date & Time of Evaluation Date of Evaluation: 04/17/17 Time of Evaluation: 07:20 - Subjective Subjective: 61 y/o F with PMH of HTN, COPD, CHF, hypothyroidism, Dyslipidemia, and Bipolar disorder seen to sign out AMA. Patient was seen at bedside. Patient was informed of risks of leaving hospital including , paralysis, fracture, heart attack, infection, sepsis, Objective - Vital Signs/Intake and Output Vital Signs (last 24 hours): Temp Pulse Resp BP Pulse Ox 97 F L 101 H 22 144/92 H 95 04/17/17 03:04 04/17/17 03:04 04/17/17 03:04 04/17/17 03:04 04/16/17 20:00
--- NOTE | 2017-04-17 08:00 | CP.PCM.PN ---
Subjective - Date & Time of Evaluation Date of Evaluation: 04/17/17 Time of Evaluation: 07:52 - Subjective Subjective: Patient seen for evaluation for leaving AMA. Patient was AAOx3. However after discussion with nursing staff who spoke with patient's family, patient has been living in unsafe conditions. She does not live with her family. Patient was not seen by PES upon presentation to the ED. After discussion with PMD, patient will await clearance from PES/Psychiatry before being able to leave AMA. Patient became agitated upon hearing she was unable to leave immediately. JOHANNE PADILLA was called. Patient was given Ativan 1 mg IM. Objective - Vital Signs/Intake and Output Vital Signs (last 24 hours): Temp Pulse Resp BP Pulse Ox 97 F L 101 H 22 144/92 H 95 04/17/17 03:04 04/17/17 03:04 04/17/17 03:04 04/17/17 03:04 04/16/17 20:00
[2017-04-17 08:41] VITALS: BP 128/72; PULSE 63; RESP 20; TEMP 97.9; O2SAT 97
--- NOTE | 2017-04-17 09:36 | CARD ---
APPROVED REPORT EKG Measurement Heart [id number] <Conclusion> Sinus tachycardia Left ventricular hypertrophy NSSTW changes Prolonged QTc C/W ECG 03/24/17: lateral T waves are now upright.
--- NOTE | 2017-04-17 09:43 | CARD ---
APPROVED REPORT EKG Measurement Heart [id number] <Conclusion> Normal sinus rhythm Moderate voltage criteria for LVH, may be normal variant NSSTW changes Prololnged QTc Wandering baseline No change
--- NOTE | 2017-04-17 13:11 | RAD ---
HISTORY: PES eval COMPARISON: 03/15/2017. FINDINGS: LUNGS: No active pulmonary disease. PLEURA: No significant pleural effusion identified, no pneumothorax apparent. CARDIOVASCULAR: Cardiomegaly. No evidence of acute, significant cardiovascular disease. OSSEOUS STRUCTURES: No significant abnormalities. VISUALIZED UPPER ABDOMEN: Normal. OTHER FINDINGS: None. IMPRESSION: No active disease. No significant interval change compared to the prior examination(s).
[2017-04-17] MEDS ORDERED: Potassium Chloride 20 mEq ER Tab PO SCH (13:30)
[2017-04-18] MEDS ORDERED: Levothyroxine 50 MCG TAB PO SCH (10:00)
[2017-04-18] MEDS ORDERED: Pantoprazole 40 mg EC Tab PO SCH (10:00)
[2017-04-18] MEDS ORDERED: VALSARTAN PO SCH (10:00)
[2017-04-18] MEDS ORDERED: HYDROCHLOROTHIAZIDE PO SCH (10:00)
--- NOTE | 2017-04-20 08:16 | HP ---
HISTORY OF PRESENT ILLNESS: Reports she is having some hallucinations, visual hallucinations, but she has gotten in and out of it. She stated there are people in the house drinking and had been loud, they would not leave the house. There is no way there. PAST MEDICAL HISTORY: Schizophrenia, diabetes, hypertension, hypothyroid, anxiety, low potassium. She has congestive heart failure, asthma, anxiety, depression, bipolar. PAST SURGICAL HISTORY: History of , cholecystectomy, bilateral ankle reconstruction surgery, back surgery. SOCIAL HISTORY: She never smoked. No alcohol. No drugs. ALLERGIES: NO KNOWN DRUG ALLERGIES. MEDICATIONS: There are a whole bunch of medications which are Ambien, Ativan, insulin, paliperidone, tolterodine, benztropine, Cymbalta, Glucophage, aspirin, metoprolol, Microzide, Norvasc, Protonix, Synthroid, and losartan/hydrochlorothiazide. REVIEW OF SYSTEMS: She is having visual hallucinations. No acute vision or hearing changes. No sore throat. No shortness of breath. No cough. No sputum. No chest pain. No palpitations. No nausea, vomiting, constipation or diarrhea. No problems urinating. No back or leg or extremity problems. PHYSICAL EXAMINATION: GENERAL: She is anxious. She is a little bit depressed. She seems worried. VITAL SIGNS: She has a 98.7 temp, the pulse was 113 when she came in, now it is 80; 19 respiratory rate; 154/90 down now to 130/75; 95% O2 sat. HEENT: Head atraumatic, normocephalic. Extraocular muscles are intact. Pupils are equal and reactive to light and accommodation. Throat is moist. NECK: Supple. HEART: Regular rate. Normal S1 and S2. LUNGS: Decreased breath sounds, but clear to auscultation. ABDOMEN: Soft and nontender. Positive bowel sounds. No guarding. No rebound. No CVA tenderness. EXTREMITIES: No edema. NEUROLOGIC: GCS is 15. Cranial nerves II through XII grossly intact. Normal speech. She is confused and out of it and visual hallucinating. SKIN: Warm and dry. No apparent rashes or ulcers. LYMPHATICS: Thyroid is midline. No palpable appreciable lymphadenopathy. LABORATORY DATA: She had multiple tests Avelino Antoine DO EL
--- NOTE | 2017-04-20 09:05 | PN ---
DATE: 04/17/2017 This patient was discussed with Dr. Mcneil, Psychiatrist will take it to the fifth floor today, which is the psychiatric floor. I will continue to see her there. We will continue the same medications. She has visual hallucination and schizophrenia from not taking the medications and now she is off mentally a little bit. Medically, she is cleared. Hypertension, diabetes, hypothyroid, anxiety, low potassium was replaced and hypothyroid. Avelino Antoine DO
== END 2017-04-17 15:52 | DRG 641 ==
LOC: ED 17:49 → ERH 21:18 → 3RNO 23:53 → OBSVTOIN 04-17 00:51
PROVIDERS: ADMIT Internal Medicine; ATTEND Family Medicine
DX: E87.6 Hypokalemia (principal); I11.0 Hypertensive heart disease with heart failure; I50.9 Heart failure, unspecified; F20.9 Schizophrenia, unspecified; E03.9 Hypothyroidism, unspecified; E11.9 Type 2 diabetes mellitus without complications; F41.9 Anxiety disorder, unspecified; F31.9 Bipolar disorder, unspecified; J45.909 Unspecified asthma, uncomplicated; R00.0 Tachycardia, unspecified; R40.2412 Glasgow coma scale score 13-15, at arrival to emergency department; Z90.49 Acquired absence of other specified parts of digestive tract

== ENCOUNTER 2017-04-17 15:56 | Inpatient (IN) | payer MEDICARE, BC ==
[2017-04-16 17:50] VITALS: PULSE 89; BMI 38.7
--- NOTE | 2017-04-17 16:46 | PCM.PSYCH ---
Initial Psychiatric Evaluation - Initial Psychiatric Evaluation Type of Admission: Voluntary Legal Status: Capacity (patient has capacity to sign consent for treatment) Chief Complaint (in patient's own words): "I want to go outside, I don't know, it is number 9, all of my meds are home... " Patient's Reaction to Hospitalization: patient was transferred from the medical side for evaluation of disorganized, psychotic, agitated behavior. History of Present Illness and Precipitating Events: Pt is a 61 y/o female reported h/o schizophrenia, not known h/ o suicidal attempts, pt was brought in to the hospital for evaluation of disorganized, agitated, paranoid behavior, pt was found to have electrolyte dysbalance, was admitted to the medical side, was medically stabilized and was transferred to the psych unit. pt was seen on the medical side, then in psych inpatient unit later on. pt was agitated, needed to have IM of Gedodon and Ativan with good response. Pt is a client of [facility], on injectable form of Invega sustenna, pt required further evaluation and stabilization, pt was admitted under voluntary status. pt was seen and examined today at the morning time on the medical side, pt has poor personal hygiene, has poor ADLs, had tendency of wondering, tried to elope with no shoes on and ximena patel was called. this tag writer attempted to speak to the patient but no meaningful conversation is possible at this point, patient remembers this tag writer by name, presented to be disorganized, thought process absolutely illogical, answers were not related to the questions being asked. Patient does not remember the circumstances of her admission to the medical side, patient said "all of my medications at home, I don't know why I'm here, I need to go, you need to let go", on the question what pharmacy was pt used in order to fill meds, pt said "[facility]",w hen was asked what number nine, pt just stared at this tag writer said that she did not take any medications. will call to [facility]. as per ED PES report pt was disorganized, pt's son called 911. this tag writer is very familiar with pt from prolonged psych admission which took place at the beginning of this month. pt is court mandated to have Injection of Invega and court mandated to attend DTP. pt has h/o being in [facility] for 4years. pt said she has episodes when she could not remember things, pt has no recollection of the circumstances of her admission, pt was seen by nerurology last admission, will consider Neurology follow up. 03/17/17: as per professor of social work collaterals from pt's daughter: Sandi Arechiga( [phone]). pt has a hx of using crack cocaine and abusing prescription pills until 2007 in which she was sent to care home for one year and then transferred to [facility] for 4 years. Pt's daughter reports pt has not been hospitalized in several years. Pt's daughter reports pt has hx of attempting to commit suicide by drug overdose from the s-. Pt has no known recent suicide attempts. Pt reported to have hx of aggressive behaviors. pt has h/o UTI and deliriums. pt denied smoking, UDS negative for substances, even benzos. Pt is currently prescribed, Cymbalta 60mg, Ativan 1mg PRN and BID, Ambien 10mg, Metformin 500mg, Lopressor 12.5mg, Invega Sustenna 156mg, Protonix 40mg, Synthroid .05mg, Humulin (insulin), Valsartan, Cogentin, Aspirin (Low), and Norvsasc. PT due for Invega injection at [facility] 04/21/2017. Current Medications: see HPI Pt is currently prescribed, Cymbalta 60mg, Ativan 1mg PRN and BID, Ambien 10mg, Metformin 500mg, Lopressor 12.5mg, Invega Sustenna 156mg, Protonix 40mg, Synthroid .05mg, Humulin (insulin), Valsartan, Cogentin, Aspirin (Low), and Norvsasc. PT due for Invega injection at [facility] 04/21/2017. Past Psychiatric History - Past Psychiatric History Previous Treatment History: Inpatient Prior Professional Help: see HPI Prior Psychiatric Treatment: see HPI At [facility]: see HPI Duration: see HPI Explanation of prior treatment: see HPI History of Abuse: see HPI History of ETOH/Drug Use: see HPI History of Family Illness: see HPI Pertinent Medical Hx (Current Medical&Sleep Prob, Allergies): Allergies Allergy/AdvReac Type Severity Reaction Status Date / Time No Known Allergies Allergy Verified 03/17/17 00:40 Tolterodine Tartrate [Tolterodine Tartrate ER] 1 tab PO DAILY 02/14/17 Aspirin [Lo-Dose Aspirin EC] 81 mg PO DAILY #20 tablet. 04/06/17 Benztropine [Cogentin] 1 tab PO DAILY #14 tab 04/06/17 DULoxetine [Cymbalta] 60 mg PO DAILY #14 ecc 04/06/17 Insulin Human Regular-MED [HumuLIN R MED] 1 unit SC ACHS #1 ml 04/06/17 LORazepam [Ativan] 1 mg PO BID #30 tab 04/06/17 LORazepam [Ativan] 1 mg PO Q6 PRN #30 tab 04/06/17 Levothyroxine [Synthroid] 0.05 mg PO DAILY #14 tab 04/06/17 Metoprolol Tartrate [Lopressor] 12.5 mg PO BRKDIN #14 tab 04/06/17 Paliperidone Palmitate [Invega Sustenna] 156 mg IM .MONTHLY #1 syr 04/06/17 Pantoprazole Sodium [Protonix] 40 mg PO DAILY #14 tablet. 04/06/17 Valsartan/Hydrochlorothiazide [Valsartan-Hctz 160-12.5 mg Tab] 1 tab PO DAILY # 14 tablet 04/06/17 Zolpidem [Ambien] 10 mg PO HS PRN #14 tab 04/06/17 amLODIPine [Norvasc] 10 mg PO DAILY #14 tab 04/06/17 hydroCHLOROthiazide [Microzide] 12.5 mg PO DAILY #15 cap 04/06/17 metFORMIN [glucOPHAGE] 500 mg PO BID #30 tab 04/06/17 Review of Systems - Review of Systems Systems not reviewed;Unavailable: Acuity of Condition - EENT Eyes: As Per HPI Ears: As Per HPI Nose/Mouth/Throat: As Per HPI - Breasts Breasts: As Per HPI - Cardiovascular Cardiovascular: As Per HPI - Respiratory Respiratory: As Per HPI - Gastrointestinal Gastrointestinal: As Per HPI - Genitourinary Genitourinary: As Per HPI - Reproductive: Female Reproductive:Female: As Per HPI - Menstruation Menstruation: As Per HPI - Musculoskeletal Musculoskeletal: As Par HPI - Integumentary Integumentary: As Per HPI - Neurological Neurological: As Per HPI - Psychiatric Psychiatric: As Per HPI - Endocrine Endocrine: As Per HPI - Hematologic/Lymphatic Hematologic: As Per HPI Mental Status Examination - Personal Presentation Personal Presentation: Looks stated age - Affect Affect: Constricted, Flat - Motor Activity Motor Activity: Psychomotor Agitation - Reliability in Providing Information Reliability in Providing Information: Poor, due to alteration in thoughts, Poor , due to altered mood, Poor, due to cognitve impairment - Speech Speech: Disorganized, Irrelevant, Tangential, Incoherent - Mood Mood: Depressed - Formal Thought Process Formal Thought Process: Hallucinations, Delusions, Paranoia, Loosening of associations, Circumstantial - Hallucinations/Delusions Delusions: Persecution - Obsessions/Compulsions Obsessions: None Compulsions: None - Cognitive Functions Orientation: Person, Place Sensorium: Alert Abstract Thinking: [place] Estimate of Intelligence: Below average Judgement: Intact, as evidence by: Insight regarding need for hospitalization - Risk Risk: Diminished functioning - Strength & Assets Inventory Strength & Assets Inventory: Cooperative - Limitations Limitations: Other (pt has long h/o mental illness, noncompliance with meds\\) DSM 5 DX - DSM 5 DSM 5 Diagnosis: schizoaffective disorder h/o polysubstance abuse and dependence Rule out delirium which could be related to benzodiazepines withdrawals or UTI - Recommended/Plan of Treatment Treatment Recommendations and Plan of Treatment: Milieu/structure/supportive therapy patient is on one-to-one for high risk of elopement, disorganized thoughts and behavior, wandering in the unit Medical consult appreciated, see medical team note for more detailed info consultation for discharge plan and social issues Med management meds resumed Patient was responding well to Geodon, will be started 20 mg3 times a day for psychosis Ativan 1 mg twice a day Patient was on Invega Sustenna, 156 mg monthly, next dose should be given at April [facility] [place] [facility] [place] [facility] ambien 10mg po hs prn for insomnia cymbalta 60mg po daily for depression all meds were resumed by Dr.Levine NGUYEN and urine culture and sensitivities will be up obtained tomorrow, patient prone to have delirium due to urinary tract infection Family involvement Follow up on labs Will monitor closely evaluation for d/c planning Pt was educated about risk/benefits and alternatives of medications, coping strategies (safety plan, suicide prevention), relapse prevention, importance of follow up with psychiatrist and therapist, stay away from drugs/alcohol/smoking Projected ELOS: 10 days Discharge Plan and Discharge Criteria: guarded - Smoking Cessation Smoking Cessation Initiated: No Reason for not providing: denies smoking
--- NOTE | 2017-04-17 18:34 | PCM.BM ---
<Christopher Portillo - Last Filed: 04/17/17 18:34> Treatment Plan Problems - Problems identified on initial assessmt AGITATED/AGGRESSIVE BEHAVIOR Date Initiated: 04/17/17 Time Initiated: 18:32 Assessment reference: HP, NA Status: Active THOUGHT PROCESS ALTERATION Date Initiated: 04/17/17 Time Initiated: 18:33 Assessment reference: HP, NA Status: Active MEDICATIONS NONADHERENCE Date Initiated: 04/17/17 Time Initiated: 18:33 Assessment reference: HP, NA Status: Active Treatment assets and liabiliti Patient Assests: cooperative, educated, self-reliant, ADL independent, negotiates basic needs, cognitively intact Patient Liabilities: poor support system, relationship conflicts, medical problems, other - Milieu Protocol Maintain good personal hygiene: daily Encourage regular showers, daily Remind patient to perform daily oral care, daily Assist patient to perform ADL's Maintain personal safety: daily Educate patient to report safety concerns to staff, daily Monitor environment for contraband/sharps Medication safety: Monitor for expected outcome, potential side effects: daily, Assess barriers to learning: daily, Assess readiness for medication education: daily Milieu Narrative: Milieu/structure/supportive therapy patient is on one-to-one for high risk of elopement, disorganized thoughts and behavior, wandering in the unit Medical consult appreciated, see medical team note for more detailed info SW consultation for discharge plan and social issues Med management meds resumed Patient was responding well to Geodon, will be started 20 mg3 times a day for psychosis Ativan 1 mg twice a day Patient was on Invega Sustenna, 156 mg monthly, next dose should be given at April 21 [facility] [place] [facility] ambien 10mg po hs prn for insomnia cymbalta 60mg po daily for depression all meds were resumed by Dr.Levine NGUYEN and urine culture and sensitivities will be up obtained tomorrow, patient prone to have delirium due to urinary tract infection Family involvement Follow up on labs Will monitor closely SW evaluation for d/c planning Pt was educated about risk/benefits and alternatives of medications, coping strategies (safety plan, suicide prevention), relapse prevention, importance of follow up with psychiatrist and therapist, stay away from drugs/alcohol/smoking Discharge/Continuing Care - Education Needs Education Needs: Patient Medication, Patient Diagnosis/Disease Process, Patient Coping Skills, Patient Anger Management skills, Patient Community resources, Patient Activities of Daily Living, Patient Health Practices/Safety, Patient Personal Hygiene/Grooming, Patient Aftercare Safety Plan - Discharge Discharge Criteria: Free of Suicidal thoughts, Free of Homicidal thoughts, Free of paranoid thoughts, Free of agitation, Ability to care for self - Treatment Team Participation Patient/Family/SO Statement: Milieu/structure/supportive therapy patient is on one-to-one for high risk of elopement, disorganized thoughts and behavior, wandering in the unit Medical consult appreciated, see medical team note for more detailed info consultation for discharge plan and social issues Med management meds resumed Patient was responding well to Geodon, will be started 20 mg3 times a day for psychosis Ativan 1 mg twice a day Patient was on Invega Sustenna, 156 mg monthly, next dose should be given at April 21 either [facility] or [facility] ambien 10mg po hs prn for insomnia cymbalta 60mg po daily for depression all meds were resumed by UA and urine culture and sensitivities will be up obtained tomorrow, patient prone to have delirium due to urinary tract infection Family involvement Follow up on labs Will monitor closely evaluation for d/c planning Pt was educated about risk/benefits and alternatives of medications, coping strategies (safety plan, suicide prevention), relapse prevention, importance of follow up with psychiatrist and therapist, stay away from drugs/alcohol/smoking <Ewa More - Last Filed: 04/18/17 18:33> - Diagnosis (1) Schizoaffective disorder Status: Acute Interventions: 04/18/17 18:33 Psychoeducation/psychotherapy Psychopharmacology/adjustment of medications as needed/ monitoring possible side effects Evaluate pt on daily basis Compliance with medications and follow up appointments Long acting medication if pt is noncompliant with pill form Suicide and homicide risk assessment and prevention, coping strategies, safety plan Relapse prevention Reduction of symptoms Improve functional status Possible assertive community treatment Cognitive behavioral therapy Family involvement Possible social skill training as outpatient (2) Delirium due to another medical condition Status: Acute Interventions: 04/18/17 18:33 Pt will be seen by medical team as needed Medications will be confirmed and resumed Additional consultation by specialists as needed Lab work as needed (CBC, CMP, TSH, free T4, UA, Urine test for females as needed) CXR as needed EKG Physical therapy evaluation as needed
[2017-04-18 08:11] LABS: GLUCOSE,FASTING 142 mg/dL (65-110); HDL CHOLESTEROL 37 mg/dL (29-60)
[2017-04-18] MEDS: Pantoprazole 40 mg EC Tab PO SCH (08:15)
[2017-04-18] MEDS: Levothyroxine 50 MCG TAB PO SCH (08:16)
[2017-04-18 08:22] LABS: LDL CHOLESTEROL 153 mg/dL (0-129)
[2017-04-18 08:27] LABS: FREE T4 0.95 ng/dL (0.78-2.19)
--- NOTE | 2017-04-18 18:45 | PCM.PYCHPN ---
Psychiatric Progress Note - Psychiatric Progress Note Patient seen today, length of contact: 30min Patient Chief Complaint: "......." Problems Identified/Issues Discussed: pt deeply sedated Medical Problems: hypothyroidism DM h/o UTIs and deliriums Diagnostic Results: Lab Results 04/18/17 07:30: Free T4 0.95, TSH 3rd Generation 0.67 04/18/17 07:30: Fasting Glucose 142 H, Triglycerides 464 H, Cholesterol 271 H, LDL Cholesterol Direct 153 H, HDL Cholesterol 37 Vital Signs Pulse BP 04/18/17 16:00 90 105/64 04/18/17 11:00 89 107/64 04/18/17 08:15 109 H 154/123 H DSM 5 Symptoms Update: Pt is a 61 y/o female reported h/o schizophrenia, not known h/ o suicidal attempts, pt was brought in to the hospital for evaluation of disorganized, agitated, paranoid behavior, pt was found to have electrolyte dysbalance, was admitted to the medical side, was medically stabilized and was transferred to the psych unit 04/17/17. Pt is a client of [facility], on injectable form of Invega sustenna, pt required further evaluation and stabilization, pt was admitted under voluntary status. pt was seen and examined today at the morning time in her room, pt is s/p IM josephdone, deeply sleeping, was able to opened her eyes, then fall back to sleep. as per staff pt ate breakfast, RN was advised to wake pt up and feed/hydrate pt. as per staff pt was agitated, was not able to calm, down, needed to have constant redirection, currently is on 1:1. pt was seen by medical doctor . Pt is currently prescribed, Cymbalta 60mg, Ativan 1mg PRN and BID, Ambien 10mg, Metformin 500mg, Lopressor 12.5mg, Invega Sustenna 156mg, Protonix 40mg, Synthroid .05mg, Humulin (insulin), Valsartan, Cogentin, Aspirin (Low), and Norvsasc. PT due for Invega injection at [facility] 04/21/2017. Impression: DSM 5 Diagnosis: schizoaffective disorder h/o polysubstance abuse and dependence Rule out delirium which could be related to benzodiazepines withdrawals or UTI Medication Change: No Medical Record Reviewed: Yes Consults ordered or reviewed: medical consult appreciated Mental Status Examination - Cognitive Function Orientation: Person, Place Memory: Impaired Attention: Poor Concentration: Poor - Mood Mood: Depressed - Affect Affect: Constricted, Flat - Formal Thought Process Formal Thought Process: Hallucinations, Delusions, Paranoia, Loosening of associations, Circumstantial - Suicidal Ideation Suicidal Ideation: No - Homicidal Ideation Homicidal Ideation: No Goal/Treatment Plan - Goal/Treatment Plan Need for Continued Stay: Remain at risks for inpatient hospitalization, Severe depression anxiety, Discharge may exacerbated symptoms, Severe functional impairment Progress Toward Problem(s) and Goals/Treatment Plan: Milieu/structure/supportive therapy patient is on one-to-one for high risk of elopement, disorganized thoughts and behavior, wandering in the unit Medical consult appreciated, see medical team note for more detailed info consultation for discharge plan and social issues Med management meds resumed Patient was responding well to Geodon, will be started 20 mg3 times a day for psychosis Ativan 1 mg twice a day Patient was on Invega Sustenna, 156 mg monthly, next dose should be given at April [place] [facility] [place] [facility] ambien 10mg po hs prn for insomnia cymbalta 60mg po daily for depression all meds were resumed by UA and urine culture and sensitivities will be up obtained tomorrow, patient prone to have delirium due to urinary tract infection Family involvement Follow up on labs Will monitor closely evaluation for d/c planning Pt was educated about risk/benefits and alternatives of medications, coping strategies (safety plan, suicide prevention), relapse prevention, importance of follow up with psychiatrist and therapist, stay away from drugs/alcohol/smoking Estimated Date of D/C: 04/23/17 (will monitor closely)
--- NOTE | 2017-04-18 22:02 | CON ---
DATE: 04/18/2017 I sent her to the Psych Unit yesterday. I saw her now on the psychiatric floor. She is still very out of it and confused. She has been off her psych medicines for few days, that is what the whole problems about. She is in and out of it mentally. Psychiatry has her in there to help her. She has multiple issues. PAST MEDICAL HISTORY: She is a 61-year-old female who has a history of asthma, COPD, CHF, hypertension, abdominal hematoma, hydronephrosis, hypoxia, low potassium, diabetes, depression, bipolar, anxiety, cardiac catheterization for coronary artery disease, she has high cholesterol, high triglycerides, hypertension, she had bilateral ankle reconstruction, back surgery, and a . SOCIAL HISTORY: She is a former smoker. No alcohol. No drugs. Last time she used cocaine was seven years go. ALLERGIES: NO KNOWN DRUG ALLERGIES. MEDICATIONS: She is on Cogentin, Cymbalta, Synthroid, hypothyroidism, Ativan for anxiety, Protonix, Ambien, aspirin, losartan, hydrochlorothiazide, Invega, and tolterodine. She is done with her medications. She has stopped taking them. She was doing well two weeks ago. REVIEW OF SYSTEMS: Her review of systems is very hard to get a good review of systems with no acute vision or hearing changes. She just go off on tangents when you talk her. No apparent sore throat. No apparent shortness of breath, chest pain, coughing, sputum, or palpitations at this time. No abdominal pain. No nausea or vomiting. No diarrhea or constipation. No problems urinating. No pain. Just a little bit confused and out of it mentally. PHYSICAL EXAMINATION: VITAL SIGNS: A 98 temperature, 100 pulse, blood pressure was 112/80 right now just have them do it, it was very high when she came in before she had a hypertensive medication. Respiratory rate 20. She has 97% O2 saturation. HEENT: Head is atraumatic, normocephalic. Extraocular muscles are intact. She is kind of staring and confused. Throat is moist. NECK: Supple. HEART: Regular rate. LUNGS: Decreased breath sounds. No wheezing at this time. ABDOMEN: Soft, obese, nontender, and positive bowel sounds. No guarding. No rebound. No CVA. EXTREMITIES: Tenderness in the lower extremity edema. SKIN: Warm and dry. No apparent ulcers or rashes. NEUROLOGIC: She is alert and oriented x3, but she is off mentally may be a little confused. LYMPHATIC: Thyroid midline. No palpable or appreciable lymph adenopathy. LABORATORY DATA: She has a 142 fasting sugar, triglycerides are 468, I put her on TriCor. Cholesterol is 271, I put her on Lipitor. TSH is 0.67. ASSESSMENT AND PLAN: We will order labs for tomorrow. Put her back on her medications. She has multiple issues. She is out of her medications, that is why she is here not doing well. She has schizophrenia, bipolar, diabetes, hypothyroidism, and she is having visual hallucinations, high cholesterol, high triglycerides, hypertension, and we will follow up close. Avelino Antoine DO
[2017-04-19 07:41] LABS: MEAN CELL VOLUME 93.7 fl (80.0-105.0); MEAN CORPUSCULAR HEMOGLOBIN 30.4 pg (25.0-35.0); MEAN CORPUSCULAR HGB CONC 32.5 g/dl (31.0-37.0); RBC 4.27 10^6/uL (3.5-6.1); RED CELL DISTRIBUTION WIDTH 13.5 % (11.5-14.5); WHITE BLOOD COUNT 7.4 10^3/ul (4.5-11.0)
[2017-04-19 07:50] LABS: ALB/GLOB RATIO 1.3 (1.1-1.8); ALBUMIN 3.8 g/dL (3.0-4.8); ALT/SGPT 41 U/L (7-56); AST/SGOT 28 U/L (14-36); BLOOD UREA NITROGEN 13 mg/dL (7-21); CALCIUM 9.3 mg/dL (8.4-10.5); GFR AFRICAN-AMERICAN > 60; GFR NON-AFRICAN AMERICAN > 60
[2017-04-19] MEDS: Levothyroxine 50 MCG TAB PO SCH (09:31)
[2017-04-19] MEDS: Pantoprazole 40 mg EC Tab PO SCH (09:31)
--- NOTE | 2017-04-19 14:42 | PN ---
DATE: SUBJECTIVE: I saw Sena resting comfortably in bed. She is alert. She knew me. She is talking better. I think the medicines are starting to work again. I think she was off the meds for a while. She is on Ambien, Ativan, Cozaar, Cymbalta, Ecotrin, Geodon, Glucophage, Lipitor, Lopressor, Microzide, Norvasc, Protonix, Synthroid, and Tricor. PHYSICAL EXAMINATION: VITAL SIGNS: 98.8 temp, 88 pulse, 112/67 blood pressure, 20 respiratory rate. GENERAL: She is more alert and oriented. She ate her breakfast this morning. HEENT: Head is atraumatic and normocephalic. HEART: Regular rate. LUNGS: Decreased breath sounds, but clear. ABDOMEN: Soft. Morbidly obese. EXTREMITIES: No edema. LABORATORY DATA: She had a 7.4 white count, 13 hemoglobin, 220 platelets. Sodium 143, potassium 3.4 and was replaced, BUN 30, creatinine 0.6, GFR is greater than 60, sugar is 122. Calcium is 9.3, total bili is 0.6, AST is 28, ALT is 41, alk phos 79, total protein 6.8. TSH is 0.67. RPR is nonreactive. ASSESSMENT AND PLAN: She has been seen by Psychiatry. Overall, I think that she is starting to improve and I will check her laboratories tomorrow. Check her potassium. She was here for schizophrenia, visual hallucination, hypertension, diabetes, bipolar, hypothyroid, high cholesterol, high triglycerides, hypertension, and low potassium. Avelino Antoine DO
--- NOTE | 2017-04-19 14:50 | PCM.PYCHPN ---
Psychiatric Progress Note - Psychiatric Progress Note Patient seen today, length of contact: 30min Patient Chief Complaint: "I took a clock already, it is when my father got into the house, my brother started hitting all over, he pressed my father buttons..." Problems Identified/Issues Discussed: Suicide/ homicide prevention, past psychiatric h/o, current psychiatric symptoms , medical problems, risk/benefits and alternatives of medications, medications compliance, coping strategies, substance abuse h/o, relapse prevention, importance of follow up with psychiatrist and therapist, discharge plan. Medical Problems: hypothyroidism DM h/o UTIs and deliriums Diagnostic Results: Lab Results 04/18/17 07:30: Free T4 0.95, TSH 3rd Generation 0.67 04/18/17 07:30: Fasting Glucose 142 H, Triglycerides 464 H, Cholesterol 271 H, LDL Cholesterol Direct 153 H, HDL Cholesterol 37 Vital Signs Pulse BP 04/18/17 16:00 90 105/64 04/18/17 11:00 89 107/64 04/18/17 08:15 109 H 154/123 H Temp Pulse Resp BP Pulse Ox 98.8 F 88 20 112/67 04/19/17 07:00 04/19/17 09:31 04/19/17 07:00 04/19/17 09:32 Abnormal Lab Results 04/18/17 04/19/17 04/19/17 07:30 06:30 06:30 WBC 7.4 RBC 4.27 Hgb 13.0 Hct 40.0 MCV 93.7 MCH 30.4 MCHC 32.5 RDW 13.5 Plt Count 220 MPV 11.0 Sodium 143 Potassium 3.4 L Chloride 107 Carbon Dioxide 27 Anion Gap 12 BUN 13 Creatinine 0.6 L Est GFR ( Amer) > 60 Est GFR (Non-Af Amer) > 60 Random Glucose 122 H Calcium 9.3 Total Bilirubin 0.6 AST 28 ALT 41 Alkaline Phosphatase 79 Total Protein 6.8 Albumin 3.8 Globulin 2.9 Albumin/Globulin Ratio 1.3 RPR Nonreactive DSM 5 Symptoms Update: Pt is a 61 y/o female reported h/o schizophrenia, not known h/ o suicidal attempts, pt was brought in to the hospital for evaluation of disorganized, agitated, paranoid behavior, pt was found to have electrolyte dysbalance, was admitted to the medical side, was medically stabilized and was transferred to the psych unit 04/17/17. Pt is a client of [facility], on injectable form of Invega sustenna, pt required further evaluation and stabilization, pt was admitted under voluntary status. pt was seen and examined today at the morning time at the treatment team meeting with [facility] Carroll, pt presented with minimal improvement, pt at least alert and not agitated, at the same time pt completely disorganized, when was asked to draw a clock, pt said "it is already o'clock", pt also was making random statements like: "I took a clock already, it is when my father got into the house, my brother started hitting all over, he pressed my father buttons...", pt required IM of geodone yesterday. currently is on 1:1. pt was seen by medical doctor . Pt is currently prescribed, Cymbalta 60mg, Ativan 1mg PRN and BID, Ambien 10mg, Metformin 500mg, Lopressor 12.5mg, Invega Sustenna 156mg, Protonix 40mg, Synthroid .05mg, Humulin (insulin), Valsartan, Cogentin, Aspirin (Low), and Norvsasc. PT due for Invega injection at [facility] 04/21/2017. Impression: DSM 5 Diagnosis: schizoaffective disorder h/o polysubstance abuse and dependence Rule out delirium which could be related to benzodiazepines withdrawals or UTI Medication Change: No Medical Record Reviewed: Yes Mental Status Examination - Cognitive Function Orientation: Person, Place Memory: Impaired Attention: Poor Concentration: Poor Association: Loose Fund of Knowledge: Poor - Mood Mood: Depressed - Affect Affect: Constricted, Flat - Formal Thought Process Formal Thought Process: Hallucinations, Delusions, Paranoia, Loosening of associations, Circumstantial - Suicidal Ideation Suicidal Ideation: No - Homicidal Ideation Homicidal Ideation: No Goal/Treatment Plan - Goal/Treatment Plan Need for Continued Stay: Remain at risks for inpatient hospitalization, Severe depression anxiety, Discharge may exacerbated symptoms, Severe functional impairment Progress Toward Problem(s) and Goals/Treatment Plan: Milieu/structure/supportive therapy patient is on one-to-one for high risk of elopement, disorganized thoughts and behavior, wandering in the unit Medical consult appreciated, see medical team note for more detailed info SW consultation for discharge plan and social issues Med management meds resumed Patient was responding well to Geodon, will be started 20 mg3 times a day for psychosis Ativan 1 mg twice a day Patient was on Invega Sustenna, 156 mg monthly, next dose should be given at April 21 either [facility] or [facility] ambien 10mg po hs prn for insomnia cymbalta 60mg po daily for depression all meds were resumed by UA and urine culture and sensitivities will be up obtained tomorrow, patient prone to have delirium due to urinary tract infection Family involvement Follow up on labs Will monitor closely SW evaluation for d/c planning Pt was educated about risk/benefits and alternatives of medications, coping strategies (safety plan, suicide prevention), relapse prevention, importance of follow up with psychiatrist and therapist, stay away from drugs/alcohol/smoking Estimated Date of D/C: 04/23/17 (will monitor closely)
[2017-04-20] MEDS: Levothyroxine 50 MCG TAB PO SCH (06:04)
[2017-04-20 07:33] LABS: MEAN CELL VOLUME 92.1 fl (80.0-105.0); MEAN CORPUSCULAR HEMOGLOBIN 30.7 pg (25.0-35.0); MEAN CORPUSCULAR HGB CONC 33.3 g/dl (31.0-37.0); MEAN PLATELET VOLUME 10.7 fl (7.0-11.0); RBC 4.56 10^6/uL (3.5-6.1); RED CELL DISTRIBUTION WIDTH 13.3 % (11.5-14.5); WHITE BLOOD COUNT 7.3 10^3/ul (4.5-11.0)
[2017-04-20 07:43] LABS: ALB/GLOB RATIO 1.4 (1.1-1.8); ALBUMIN 4.4 g/dL (3.0-4.8); ALT/SGPT 41 U/L (7-56); AST/SGOT 27 U/L (14-36); BLOOD UREA NITROGEN 12 mg/dL (7-21); CALCIUM 9.6 mg/dL (8.4-10.5); GFR AFRICAN-AMERICAN > 60; GFR NON-AFRICAN AMERICAN > 60
[2017-04-20] MEDS: Pantoprazole 40 mg EC Tab PO SCH (08:35)
--- NOTE | 2017-04-20 12:47 | PN ---
DATE: SUBJECTIVE: She is finally doing well, doing much better. She is back to old self. She knew me. She is talking well. She gave me a hug. She is in good spirits. She is smiling. She is back on the medications; Ambien, Ativan, Cozaar, Cymbalta, Ecotrin, Geodon, Glucophage, Lipitor, Lopressor, Microzide, Norvasc, Protonix, Synthroid, and Tricor. PHYSICAL EXAMINATION: VITAL SIGNS: She has a 98.2 temp, 84 pulse, 131/77 blood pressure, 20 respiratory rate. HEENT: Head is atraumatic and normocephalic. Throat is moist. GENERAL: She is smiling and comfortable. NECK: Supple. HEART: Regular rate. LUNGS: Clear to auscultation with decreased breath sounds. ABDOMEN: Soft, obese, nontender. EXTREMITIES: No edema. LABORATORY DATA: She has a 7.3 white count, 14 hemoglobin, 42 hematocrit with a 233 platelets. Sodium 142, potassium 3.6, BUN 12, creatinine 0.6, GFR is greater than 60, sugar is 143. Calcium is 9.6, total bilirubin is 0.6, AST is 27, ALT is 41, alk phos 83, total protein 7.5. TSH is 0.67. RPR is nonreactive. She is definitely improving with the medications, and she is back on the medications which did not make a big difference. I will continue to follow as per Psychiatry. She is here for schizophrenia, visual hallucination, hypertension, diabetes, bipolar. Continue with aggressive treatment and care. Avelino Antoine DO
--- NOTE | 2017-04-20 19:28 | PCM.PYCHPN ---
Psychiatric Progress Note - Psychiatric Progress Note Patient seen today, length of contact: 30min Patient Chief Complaint: "Oh hi I have been trying to work with the guys cleaning and stuff and make it all nice around here" Problems Identified/Issues Discussed: Patient seen ambulating around unit with 1:1 staff member. She is confused and disoriented with fast affective shifts. She is familiar with the unit and most of the staff but only recognizes us and knows where she is sometimes. She cries and asks to go home sporadically but is easily directed. She did sleep last night and is cooperative with taking her medication. Medical Problems: DM Hypothyroid Hy UTI Hy Delirium of unknown origion Diagnostic Results: Temp Pulse Resp BP Pulse Ox 98.3 F 96 H 20 128/75 04/20/17 07:45 04/20/17 18:32 04/20/17 07:45 04/20/17 18:32 Laboratory Tests 04/18/17 04/18/17 04/18/17 07:30 07:30 07:30 WBC RBC Hgb Hct MCV MCH MCHC RDW Plt Count MPV Sodium Potassium Chloride Carbon Dioxide Anion Gap BUN Creatinine Est GFR ( Amer) Est GFR (Non-Af Amer) POC Glucose (mg/dL) Random Glucose Fasting Glucose 142 H Calcium Total Bilirubin AST ALT Alkaline Phosphatase Total Protein Albumin Globulin Albumin/Globulin Ratio Triglycerides 464 H Cholesterol 271 H LDL Cholesterol Direct 153 H HDL Cholesterol 37 Free T4 0.95 TSH 3rd Generation 0.67 RPR Nonreactive 04/19/17 04/19/17 04/19/17 06:30 06:30 16:38 WBC 7.4 RBC 4.27 Hgb 13.0 Hct 40.0 MCV 93.7 MCH 30.4 MCHC 32.5 RDW 13.5 Plt Count 220 MPV 11.0 Sodium 143 Potassium 3.4 L Chloride 107 Carbon Dioxide 27 Anion Gap 12 BUN 13 Creatinine 0.6 L Est GFR ( Amer) > 60 Est GFR (Non-Af Amer) > 60 POC Glucose (mg/dL) 137 H Random Glucose 122 H Fasting Glucose Calcium 9.3 Total Bilirubin 0.6 AST 28 ALT 41 Alkaline Phosphatase 79 Total Protein 6.8 Albumin 3.8 Globulin 2.9 Albumin/Globulin Ratio 1.3 Triglycerides Cholesterol LDL Cholesterol Direct HDL Cholesterol Free T4 TSH 3rd Generation RPR 04/19/17 04/20/17 04/20/17 21:25 07:08 07:15 WBC 7.3 RBC 4.56 Hgb 14.0 Hct 42.0 MCV 92.1 MCH 30.7 MCHC 33.3 RDW 13.3 Plt Count 233 MPV 10.7 Sodium Potassium Chloride Carbon Dioxide Anion Gap BUN Creatinine Est GFR ( Amer) Est GFR (Non-Af Amer) POC Glucose (mg/dL) 156 H 134 H Random Glucose Fasting Glucose Calcium Total Bilirubin AST ALT Alkaline Phosphatase Total Protein Albumin Globulin Albumin/Globulin Ratio Triglycerides Cholesterol LDL Cholesterol Direct HDL Cholesterol Free T4 TSH 3rd Generation RPR 04/20/17 04/20/17 04/20/17 07:15 11:17 15:55 WBC RBC Hgb Hct MCV MCH MCHC RDW Plt Count MPV Sodium 142 Potassium 3.6 Chloride 105 Carbon Dioxide 25 Anion Gap 15 BUN 12 Creatinine 0.6 L Est GFR ( Amer) > 60 Est GFR (Non-Af Amer) > 60 POC Glucose (mg/dL) 123 H 130 H Random Glucose 143 H Fasting Glucose Calcium 9.6 Total Bilirubin 0.6 AST 27 ALT 41 Alkaline Phosphatase 83 Total Protein 7.5 Albumin 4.4 Globulin 3.1 Albumin/Globulin Ratio 1.4 Triglycerides Cholesterol LDL Cholesterol Direct HDL Cholesterol Free T4 TSH 3rd Generation RPR Medication Change: No Medical Record Reviewed: Yes Mental Status Examination - Cognitive Function Orientation: Person, Place Memory: Impaired Attention: Poor Concentration: Poor Association: Loose Fund of Knowledge: Poor - Mood Mood: Depressed - Affect Affect: Constricted, Flat - Formal Thought Process Formal Thought Process: Hallucinations, Delusions, Paranoia, Loosening of associations, Circumstantial - Suicidal Ideation Suicidal Ideation: No - Homicidal Ideation Homicidal Ideation: No Goal/Treatment Plan - Goal/Treatment Plan Need for Continued Stay: Remain at risks for inpatient hospitalization, Severe depression anxiety, Discharge may exacerbated symptoms, Severe functional impairment Progress Toward Problem(s) and Goals/Treatment Plan: 1:1 for patient safety Monitor mental status closely Psychoeducation Psychopharmacology/adjustment of medications as needed/ monitoring possible side effects Evaluate pt on daily basis Compliance with medications and follow up appointments Suicide and homicide risk assessment and prevention, coping strategies, safety plan Relapse prevention Reduction of symptoms Improve functional status Family involvement As outpatient: cognitive behavioral therapy Estimated Date of D/C: 04/23/17 (will monitor closely) - Smoking Cessation Smoking Cessation Initiated: No Reason for not providing: Not a smoker
[2017-04-21] MEDS: Levothyroxine 50 MCG TAB PO SCH (06:31)
[2017-04-21] MEDS: Pantoprazole 40 mg EC Tab PO SCH (08:43)
[2017-04-21] MEDS ORDERED: INVEGA SUSTENNA 156 MG IM ONE ×2 (10:00→13:30)
--- NOTE | 2017-04-21 11:29 | PN ---
DATE: SUBJECTIVE: I saw her walking in the halls in the Psych Unit. She is doing much better. She is more alert and appropriate. She is happy. She is feeling better. She tells me she is alert and oriented, not confused anymore. She is eating well, participating and taking her meds. PHYSICAL EXAMINATION VITAL SIGNS: She has 98.2 temp, 97 pulse, 140/96 blood pressure, 128/75 blood pressure, 20 respiratory rate. HEENT: Head is atraumatic, normocephalic. Throat is moist. NECK: Supple. HEART: Regular rate. LUNGS: Clear to auscultation. ABDOMEN: Soft. Obese. EXTREMITIES: No edema. MEDICATIONS: She is on Ambien, Ativan, Cozaar, Cymbalta, Ecotrin, Geodon, Glucophage, Lipitor, Lopressor, Microzide, Norvasc, Protonix, Synthroid and Tricor. LABORATORY DATA: She has 7.3 white count, 14 hemoglobin, 42.0 hematocrit, with 233 platelets. [id number], potassium 3.6, BUN 12, creatinine 0.6, last blood sugar was 141, calcium is 9.6, total bilirubin is 0.6, AST is 27, ALT is 41, alkaline phosphatase 83, total protein 7.5, albumin is 4.4, globulin 3.1. RPR is nonreactive. ASSESSMENT AND PLAN: She is being seen by Psychiatry. Overall, I do think she is improving. She was here for schizophrenia, visual hallucination, change of mentation, bipolar, hypothyroid, diabetes, hypertension, anxiety, low potassium, high cholesterol, high triglycerides, and I do think she is improving as per Psychiatry. Avelino Antoine DO
[2017-04-21 18:17] LABS: PH,URINE 6.5 (4.7-8.0); URINE BILIRUBIN NEGATIVE (NEGATIVE); URINE BLOOD NEGATIVE (NEGATIVE); URINE GLUCOSE (UA) NEGATIVE (NEGATIVE); URINE LEUKOCYTE ESTERASE TRACE Leu/uL (NEGATIVE); URINE NITRATE NEGATIVE (NEGATIVE); URINE PROTEIN NEGATIVE mg/dL (<30 mg/dL); URINE UROBILINOGEN 0.2 E.U./dL (<1 E.U./dL)
[2017-04-21 18:21] LABS: URINE APPEARANCE SL CLOUDY (CLEAR); URINE COLOR YELLOW (YELLOW)
[2017-04-21 18:24] LABS: URINE RBC NEGATIVE /hpf (0-2)
[2017-04-21 18:25] LABS: URINE BACTERIA FEW (NEG); URINE EPITHELIAL CELLS MANY /hpf (0-5)
--- NOTE | 2017-04-21 20:06 | PCM.PYCHPN ---
Psychiatric Progress Note - Psychiatric Progress Note Patient seen today, length of contact: 30min Patient Chief Complaint: "I want to go across the street" Problems Identified/Issues Discussed: Patient seen ambulating around unit with 1:1 staff member. 1:1 is necessary for patient's safety. She continues confused and disoriented with fast affective shifts. She is pleasant except when she tries to leave the unit to "go across the street." This happened repeatedly today. She cries and asks to go home sporadically but is easily directed. She signed a 48 hour notice yesterday and is not able to care for herself nor is she able to remember things from one minute to the next. We will have her screened as she cannot be discharged in her current condition. Medical Problems: DM Hypothyroid Hy UTI Hy Delirium of unknown origion Diagnostic Results: Temp Pulse Resp BP Pulse Ox 98.3 F 96 H 20 128/75 04/20/17 07:45 04/20/17 18:32 04/20/17 07:45 04/20/17 18:32 Laboratory Tests 04/18/17 04/18/17 04/18/17 07:30 07:30 07:30 WBC RBC Hgb Hct MCV MCH MCHC RDW Plt Count MPV Sodium Potassium Chloride Carbon Dioxide Anion Gap BUN Creatinine Est GFR ( Amer) Est GFR (Non-Af Amer) POC Glucose (mg/dL) Random Glucose Fasting Glucose 142 H Calcium Total Bilirubin AST ALT Alkaline Phosphatase Total Protein Albumin Globulin Albumin/Globulin Ratio Triglycerides 464 H Cholesterol 271 H LDL Cholesterol Direct 153 H HDL Cholesterol 37 Free T4 0.95 TSH 3rd Generation 0.67 RPR Nonreactive 04/19/17 04/19/17 04/19/17 06:30 06:30 16:38 WBC 7.4 RBC 4.27 Hgb 13.0 Hct 40.0 MCV 93.7 MCH 30.4 MCHC 32.5 RDW 13.5 Plt Count 220 MPV 11.0 Sodium 143 Potassium 3.4 L Chloride 107 Carbon Dioxide 27 Anion Gap 12 BUN 13 Creatinine 0.6 L Est GFR ( Amer) > 60 Est GFR (Non-Af Amer) > 60 POC Glucose (mg/dL) 137 H Random Glucose 122 H Fasting Glucose Calcium 9.3 Total Bilirubin 0.6 AST 28 ALT 41 Alkaline Phosphatase 79 Total Protein 6.8 Albumin 3.8 Globulin 2.9 Albumin/Globulin Ratio 1.3 Triglycerides Cholesterol LDL Cholesterol Direct HDL Cholesterol Free T4 TSH 3rd Generation RPR 04/19/17 04/20/17 04/20/17 21:25 07:08 07:15 WBC 7.3 RBC 4.56 Hgb 14.0 Hct 42.0 MCV 92.1 MCH 30.7 MCHC 33.3 RDW 13.3 Plt Count 233 MPV 10.7 Sodium Potassium Chloride Carbon Dioxide Anion Gap BUN Creatinine Est GFR ( Amer) Est GFR (Non-Af Amer) POC Glucose (mg/dL) 156 H 134 H Random Glucose Fasting Glucose Calcium Total Bilirubin AST ALT Alkaline Phosphatase Total Protein Albumin Globulin Albumin/Globulin Ratio Triglycerides Cholesterol LDL Cholesterol Direct HDL Cholesterol Free T4 TSH 3rd Generation RPR 04/20/17 04/20/17 04/20/17 07:15 11:17 15:55 WBC RBC Hgb Hct MCV MCH MCHC RDW Plt Count MPV Sodium 142 Potassium 3.6 Chloride 105 Carbon Dioxide 25 Anion Gap 15 BUN 12 Creatinine 0.6 L Est GFR ( Amer) > 60 Est GFR (Non-Af Amer) > 60 POC Glucose (mg/dL) 123 H 130 H Random Glucose 143 H Fasting Glucose Calcium 9.6 Total Bilirubin 0.6 AST 27 ALT 41 Alkaline Phosphatase 83 Total Protein 7.5 Albumin 4.4 Globulin 3.1 Albumin/Globulin Ratio 1.4 Triglycerides Cholesterol LDL Cholesterol Direct HDL Cholesterol Free T4 TSH 3rd Generation RPR Laboratory Results - last 24 hr 04/20/17 04/21/17 04/21/17 21:26 07:15 11:27 POC Glucose (mg/dL) 148 H 141 H 159 H Urine Color Urine Appearance Urine pH Ur Specific [place] Urine Protein Urine Glucose (UA) Urine Ketones Urine Blood Urine Nitrate Urine Bilirubin Urine Urobilinogen Ur Leukocyte Esterase Urine RBC Urine WBC Ur Epithelial Cells Urine Bacteria 04/21/17 04/21/17 16:20 16:25 POC Glucose (mg/dL) 118 H Urine Color Yellow Urine Appearance Sl cloudy Urine pH 6.5 Ur Specific [place] 1.015 Urine Protein Negative Urine Glucose (UA) Negative Urine Ketones Negative Urine Blood Negative Urine Nitrate Negative Urine Bilirubin Negative Urine Urobilinogen 0.2 Ur Leukocyte Esterase Trace H Urine RBC Negative Urine WBC 2 - 5 Ur Epithelial Cells Many Urine Bacteria Few Temp Pulse Resp BP Pulse Ox 98.2 F 81 20 94/59 L 04/21/17 07:44 04/21/17 17:02 04/21/17 07:44 04/21/17 17:02 Medication Change: Yes (Marquesnas increased) Medical Record Reviewed: Yes Consults ordered or reviewed: Medical management per Dr Antoine Mental Status Examination - Cognitive Function Orientation: Person, Place Memory: Impaired Attention: Poor Concentration: Poor Association: Loose Fund of Knowledge: Poor - Mood Mood: Depressed - Affect Affect: Constricted, Flat - Formal Thought Process Formal Thought Process: Hallucinations, Delusions, Paranoia, Loosening of associations, Circumstantial - Suicidal Ideation Suicidal Ideation: No - Homicidal Ideation Homicidal Ideation: No Goal/Treatment Plan - Goal/Treatment Plan Need for Continued Stay: Remain at risks for inpatient hospitalization, Severe depression anxiety, Discharge may exacerbated symptoms, Severe functional impairment Progress Toward Problem(s) and Goals/Treatment Plan: 1:1 for patient safety Monitor mental status closely Psychoeducation Psychopharmacology/adjustment of medications as needed/ monitoring possible side effects Evaluate pt on daily basis Compliance with medications and follow up appointments Suicide and homicide risk assessment and prevention, coping strategies, safety plan Relapse prevention Reduction of symptoms Improve functional status Family involvement As outpatient: cognitive behavioral therapy Estimated Date of D/C: 04/23/17 (will monitor closely)
[2017-04-22] MEDS: Levothyroxine 50 MCG TAB PO SCH (08:20)
[2017-04-22] MEDS: Pantoprazole 40 mg EC Tab PO SCH (08:22)
[2017-04-22 12:15] LABS: URINE BILIRUBIN NEGATIVE (NEGATIVE); URINE BLOOD NEGATIVE (NEGATIVE); URINE GLUCOSE (UA) NEGATIVE (NEGATIVE); URINE LEUKOCYTE ESTERASE NEGATIVE Leu/uL (NEGATIVE); URINE NITRATE NEGATIVE (NEGATIVE); URINE PROTEIN NEGATIVE mg/dL (<30 mg/dL); URINE UROBILINOGEN 0.2 E.U./dL (<1 E.U./dL)
[2017-04-22 12:25] LABS: URINE APPEARANCE CLEAR (CLEAR); URINE COLOR YELLOW (YELLOW)
[2017-04-22 12:34] LABS: BARBITURATES, UR NEGATIVE (NEGATIVE); BENZODIAZEPINES, UR NEGATIVE (NEGATIVE); OPIATES, UR NEGATIVE (NEGATIVE); PHENCYCLIDINE, UR NEGATIVE (NEGATIVE)
--- NOTE | 2017-04-22 12:55 | PN ---
DATE: SUBJECTIVE: I saw her walking in the hallway. She is in very good mood. She is smiley and happy and she hugged me, she 48 hours to leave, she is not sure when that will be, it could be today or tomorrow, but she has improved greatly, now that she is back on the medications. She is on Ambien, Ativan, Cozaar, Cymbalta, Ecotrin, Geodon, Glucophage, Lipitor, Lopressor, Microzide, Norvasc, Protonix, Synthroid, and Tricor. PHYSICAL EXAMINATION: VITAL SIGNS: She has 97.7 temp, 90 pulse, 137/80 blood pressure, and 20 respiratory rate. HEENT: Head is atraumatic, normocephalic. Throat is moist. NECK: Supple. HEART: Regular rate. LUNGS: Clear to auscultation. ABDOMEN: Soft, obese, and nontender. EXTREMITIES: No edema. LABORATORY DATA: She has a good CBC on , a good SMA-20 on the and on the , unless blood sugar was 159. ASSESSMENT AND PLAN: We will continue as per Psychiatry. We will wait on 48 hours . She was here for schizophrenia, visual hallucination, hypertension, diabetes, bipolar, hypothyroid, anxiety, low potassium, high triglycerides, and high cholesterol. We will continue with aggressive treatment and care and we will see her on the outpatient in a few weeks. Avelino Antoine DO MTDD
[2017-04-22 16:11] VITALS: O2SAT 93
--- NOTE | 2017-04-22 17:37 | CARD ---
APPROVED REPORT EKG Measurement Heart [id number] <Conclusion> Normal sinus rhythm Left ventricular hypertrophy with repolarization abnormality Prolonged QT Abnormal ECG
--- NOTE | 2017-04-22 18:00 | PCM.PYCHPN ---
Psychiatric Progress Note - Psychiatric Progress Note Patient seen today, length of contact: 30min Patient Chief Complaint: "I am trying to do everything right but he isn't telling me what I did wrong" Problems Identified/Issues Discussed: Patient seen in her room with 1:1 staff member. 1:1 is necessary for patient's safety. She continues confused and disoriented, is an elopement risk and will have outbursts of sadness where she cries loudly for reasons that are unclear. For the most part, she is pleasant and she is easily directed. She signed a 48 hour notice but is not able to care for herself nor does she seem to be able to make decisions for her self due to severe deficits in her memory. She will be screened as she cannot be discharged in her current condition. Urine is negative for UTI, new EKG ordered indicates abnormal EKG with a prolonged QT, LVH. This is similar to the last EKG from a previous admission. Geodon discontinued as it also can have an effect on the QT interval. Medical Problems: DM Hypothyroid Hy UTI Hy Delirium of unknown origion Diagnostic Results: Temp Pulse Resp BP Pulse Ox 98.3 F 96 H 20 128/75 04/20/17 07:45 04/20/17 18:32 04/20/17 07:45 04/20/17 18:32 Laboratory Tests 04/18/17 04/18/17 04/18/17 07:30 07:30 07:30 WBC RBC Hgb Hct MCV MCH MCHC RDW Plt Count MPV Sodium Potassium Chloride Carbon Dioxide Anion Gap BUN Creatinine Est GFR ( Amer) Est GFR (Non-Af Amer) POC Glucose (mg/dL) Random Glucose Fasting Glucose 142 H Calcium Total Bilirubin AST ALT Alkaline Phosphatase Total Protein Albumin Globulin Albumin/Globulin Ratio Triglycerides 464 H Cholesterol 271 H LDL Cholesterol Direct 153 H HDL Cholesterol 37 Free T4 0.95 TSH 3rd Generation 0.67 RPR Nonreactive 04/19/17 04/19/17 04/19/17 06:30 06:30 16:38 WBC 7.4 RBC 4.27 Hgb 13.0 Hct 40.0 MCV 93.7 MCH 30.4 MCHC 32.5 RDW 13.5 Plt Count 220 MPV 11.0 Sodium 143 Potassium 3.4 L Chloride 107 Carbon Dioxide 27 Anion Gap 12 BUN 13 Creatinine 0.6 L Est GFR ( Amer) > 60 Est GFR (Non-Af Amer) > 60 POC Glucose (mg/dL) 137 H Random Glucose 122 H Fasting Glucose Calcium 9.3 Total Bilirubin 0.6 AST 28 ALT 41 Alkaline Phosphatase 79 Total Protein 6.8 Albumin 3.8 Globulin 2.9 Albumin/Globulin Ratio 1.3 Triglycerides Cholesterol LDL Cholesterol Direct HDL Cholesterol Free T4 TSH 3rd Generation RPR 04/19/17 04/20/17 04/20/17 21:25 07:08 07:15 WBC 7.3 RBC 4.56 Hgb 14.0 Hct 42.0 MCV 92.1 MCH 30.7 MCHC 33.3 RDW 13.3 Plt Count 233 MPV 10.7 Sodium Potassium Chloride Carbon Dioxide Anion Gap BUN Creatinine Est GFR ( Amer) Est GFR (Non-Af Amer) POC Glucose (mg/dL) 156 H 134 H Random Glucose Fasting Glucose Calcium Total Bilirubin AST ALT Alkaline Phosphatase Total Protein Albumin Globulin Albumin/Globulin Ratio Triglycerides Cholesterol LDL Cholesterol Direct HDL Cholesterol Free T4 TSH 3rd Generation RPR 04/20/17 04/20/17 04/20/17 07:15 11:17 15:55 WBC RBC Hgb Hct MCV MCH MCHC RDW Plt Count MPV Sodium 142 Potassium 3.6 Chloride 105 Carbon Dioxide 25 Anion Gap 15 BUN 12 Creatinine 0.6 L Est GFR ( Amer) > 60 Est GFR (Non-Af Amer) > 60 POC Glucose (mg/dL) 123 H 130 H Random Glucose 143 H Fasting Glucose Calcium 9.6 Total Bilirubin 0.6 AST 27 ALT 41 Alkaline Phosphatase 83 Total Protein 7.5 Albumin 4.4 Globulin 3.1 Albumin/Globulin Ratio 1.4 Triglycerides Cholesterol LDL Cholesterol Direct HDL Cholesterol Free T4 TSH 3rd Generation RPR Laboratory Results - last 24 hr 04/20/17 04/21/17 04/21/17 21:26 07:15 11:27 POC Glucose (mg/dL) 148 H 141 H 159 H Urine Color Urine Appearance Urine pH Ur Specific [place] Urine Protein Urine Glucose (UA) Urine Ketones Urine Blood Urine Nitrate Urine Bilirubin Urine Urobilinogen Ur Leukocyte Esterase Urine RBC Urine WBC Ur Epithelial Cells Urine Bacteria 04/21/17 04/21/17 16:20 16:25 POC Glucose (mg/dL) 118 H Urine Color Yellow Urine Appearance Sl cloudy Urine pH 6.5 Ur Specific [place] 1.015 Urine Protein Negative Urine Glucose (UA) Negative Urine Ketones Negative Urine Blood Negative Urine Nitrate Negative Urine Bilirubin Negative Urine Urobilinogen 0.2 Ur Leukocyte Esterase Trace H Urine RBC Negative Urine WBC 2 - 5 Ur Epithelial Cells Many Urine Bacteria Few Temp Pulse Resp BP Pulse Ox 98.2 F 81 20 94/59 L 04/21/17 07:44 04/21/17 17:02 04/21/17 07:44 04/21/17 17:02 Cardiology / EKG Studies 04/22/17 15:27 EKG [ELECTROCARDIOGRAM] Stat Comment: Reason For Exam: medical clearance Temp Pulse Resp BP Pulse Ox 98.4 F 75 18 120/77 93 L 04/22/17 15:00 04/22/17 16:04 04/22/17 15:00 04/22/17 16:04 04/22/17 15:00 Laboratory Results - last 24 hr 04/21/17 04/21/17 04/22/17 16:20 21:15 07:32 POC Glucose (mg/dL) 150 H 138 H Urine Color Yellow Urine Appearance Sl cloudy Urine pH 6.5 Ur Specific [place] 1.015 Urine Protein Negative Urine Glucose (UA) Negative Urine Ketones Negative Urine Blood Negative Urine Nitrate Negative Urine Bilirubin Negative Urine Urobilinogen 0.2 Ur Leukocyte Esterase Trace H Urine RBC Negative Urine WBC 2 - 5 Ur Epithelial Cells Many Urine Bacteria Few Urine Opiates Screen Urine Methadone Screen Ur Barbiturates Screen Ur Phencyclidine Scrn Ur Amphetamines Screen U Benzodiazepines Scrn U Oth Cocaine Metabols U Cannabinoids Screen 04/22/17 04/22/17 04/22/17 11:02 12:00 12:00 POC Glucose (mg/dL) 143 H Urine Color Yellow Urine Appearance Clear Urine pH 6.0 Ur Specific [place] <= 1.005 Urine Protein Negative Urine Glucose (UA) Negative Urine Ketones Negative Urine Blood Negative Urine Nitrate Negative Urine Bilirubin Negative Urine Urobilinogen 0.2 Ur Leukocyte Esterase Negative Urine RBC Urine WBC Ur Epithelial Cells Urine Bacteria Urine Opiates Screen Negative Urine Methadone Screen Negative Ur Barbiturates Screen Negative Ur Phencyclidine Scrn Negative Ur Amphetamines Screen Negative U Benzodiazepines Scrn Negative U Oth Cocaine Metabols Negative U Cannabinoids Screen Negative 04/22/17 16:38 POC Glucose (mg/dL) 125 H Urine Color Urine Appearance Urine pH Ur Specific [place] Urine Protein Urine Glucose (UA) Urine Ketones Urine Blood Urine Nitrate Urine Bilirubin Urine Urobilinogen Ur Leukocyte Esterase Urine RBC Urine WBC Ur Epithelial Cells Urine Bacteria Urine Opiates Screen Urine Methadone Screen Ur Barbiturates Screen Ur Phencyclidine Scrn Ur Amphetamines Screen U Benzodiazepines Scrn U Oth Cocaine Metabols U Cannabinoids Screen Medication Change: Yes (discontinued for abn EKG, prolonged QT) Medical Record Reviewed: Yes Mental Status Examination - Cognitive Function Orientation: Person, Place Memory: Impaired Attention: Poor Concentration: Poor Association: Loose Fund of Knowledge: Poor - Mood Mood: Depressed - Affect Affect: Constricted, Flat - Formal Thought Process Formal Thought Process: Hallucinations, Delusions, Paranoia, Loosening of associations, Circumstantial - Suicidal Ideation Suicidal Ideation: No - Homicidal Ideation Homicidal Ideation: No Goal/Treatment Plan - Goal/Treatment Plan Need for Continued Stay: Remain at risks for inpatient hospitalization, Severe depression anxiety, Discharge may exacerbated symptoms, Severe functional impairment Progress Toward Problem(s) and Goals/Treatment Plan: 1:1 for patient safety Monitor mental status closely Psychoeducation Psychopharmacology/adjustment of medications as needed/ monitoring possible side effects Evaluate pt on daily basis Compliance with medications and follow up appointments Suicide and homicide risk assessment and prevention, coping strategies, safety plan Relapse prevention Reduction of symptoms Improve functional status Family involvement As outpatient: cognitive behavioral therapy Estimated Date of D/C: 04/23/17 (will monitor closely)
[2017-04-23] MEDS: Levothyroxine 50 MCG TAB PO SCH (05:01)
[2017-04-23 07:37] VITALS: RESP 20; TEMP 97.9
[2017-04-23] MEDS: Pantoprazole 40 mg EC Tab PO SCH (08:14)
--- NOTE | 2017-04-23 08:29 | PN ---
DATE: SUBJECTIVE: I saw her walking in the [place] this morning. She is one-to-one watch She is in good spirits. She is smiling. She is waiting for breakfast and no complaints. PHYSICAL EXAMINATION: VITAL SIGNS: She has 98.4 temp, 75 pulse, 120/77 blood pressure, 18 respiratory rate, and 92% O2 sat on room air. HEENT: Head is atraumatic and normocephalic. HEART: Regular rate. LUNGS: Clear to auscultation. ABDOMEN: Soft and obese. EXTREMITIES: No edema. MEDICATIONS: She is currently on Ambien, Ativan, Cozaar, Cymbalta, Ecotrin, Geodon, Glucophage, Lipitor, Lopressor, Microzide, Norvasc, pantoprazole, Synthroid, and TriCor. ASSESSMENT AND PLAN: She is here for schizophrenia, visual hallucination, bipolar, hypothyroid, diabetes, hypertension, high cholesterol,high triglycerides, and low potassium. I do think she is improving, as per Psychiatry, we will continue to follow. Her last blood sugar was 131. Avelino Antoine DO MTDD
[2017-04-23 16:44] VITALS: BP 120/73; PULSE 98
--- NOTE | 2017-04-23 19:33 | PCM.PYCHPN ---
Psychiatric Progress Note - Psychiatric Progress Note Patient seen today, length of contact: 30min Patient Chief Complaint: "I signed that 48 hour notice thing again and the radio director is coming later to pick me up" Problems Identified/Issues Discussed: Patient seen ambulating around the unit with her 1:1 staff member. 1:1 is necessary for patient's safety. She is an elopement risk. She has fast affective shifts and can go from calm to anger to tears very quickly. Remains confused and at times disoriented. She was accepted by screeners at [facility], awaiting bed availability. Medical Problems: DM Hypothyroid Hy UTI Hy Delirium of unknown origion Diagnostic Results: Temp Pulse Resp BP Pulse Ox 98.3 F 96 H 20 128/75 04/20/17 07:45 04/20/17 18:32 04/20/17 07:45 04/20/17 18:32 Laboratory Tests 04/18/17 04/18/17 04/18/17 07:30 07:30 07:30 WBC RBC Hgb Hct MCV MCH MCHC RDW Plt Count MPV Sodium Potassium Chloride Carbon Dioxide Anion Gap BUN Creatinine Est GFR ( Amer) Est GFR (Non-Af Amer) POC Glucose (mg/dL) Random Glucose Fasting Glucose 142 H Calcium Total Bilirubin AST ALT Alkaline Phosphatase Total Protein Albumin Globulin Albumin/Globulin Ratio Triglycerides 464 H Cholesterol 271 H LDL Cholesterol Direct 153 H HDL Cholesterol 37 Free T4 0.95 TSH 3rd Generation 0.67 RPR Nonreactive 04/19/17 04/19/17 04/19/17 06:30 06:30 16:38 WBC 7.4 RBC 4.27 Hgb 13.0 Hct 40.0 MCV 93.7 MCH 30.4 MCHC 32.5 RDW 13.5 Plt Count 220 MPV 11.0 Sodium 143 Potassium 3.4 L Chloride 107 Carbon Dioxide 27 Anion Gap 12 BUN 13 Creatinine 0.6 L Est GFR ( Amer) > 60 Est GFR (Non-Af Amer) > 60 POC Glucose (mg/dL) 137 H Random Glucose 122 H Fasting Glucose Calcium 9.3 Total Bilirubin 0.6 AST 28 ALT 41 Alkaline Phosphatase 79 Total Protein 6.8 Albumin 3.8 Globulin 2.9 Albumin/Globulin Ratio 1.3 Triglycerides Cholesterol LDL Cholesterol Direct HDL Cholesterol Free T4 TSH 3rd Generation RPR 04/19/17 04/20/17 04/20/17 21:25 07:08 07:15 WBC 7.3 RBC 4.56 Hgb 14.0 Hct 42.0 MCV 92.1 MCH 30.7 MCHC 33.3 RDW 13.3 Plt Count 233 MPV 10.7 Sodium Potassium Chloride Carbon Dioxide Anion Gap BUN Creatinine Est GFR ( Amer) Est GFR (Non-Af Amer) POC Glucose (mg/dL) 156 H 134 H Random Glucose Fasting Glucose Calcium Total Bilirubin AST ALT Alkaline Phosphatase Total Protein Albumin Globulin Albumin/Globulin Ratio Triglycerides Cholesterol LDL Cholesterol Direct HDL Cholesterol Free T4 TSH 3rd Generation RPR 04/20/17 04/20/17 04/20/17 07:15 11:17 15:55 WBC RBC Hgb Hct MCV MCH MCHC RDW Plt Count MPV Sodium 142 Potassium 3.6 Chloride 105 Carbon Dioxide 25 Anion Gap 15 BUN 12 Creatinine 0.6 L Est GFR ( Amer) > 60 Est GFR (Non-Af Amer) > 60 POC Glucose (mg/dL) 123 H 130 H Random Glucose 143 H Fasting Glucose Calcium 9.6 Total Bilirubin 0.6 AST 27 ALT 41 Alkaline Phosphatase 83 Total Protein 7.5 Albumin 4.4 Globulin 3.1 Albumin/Globulin Ratio 1.4 Triglycerides Cholesterol LDL Cholesterol Direct HDL Cholesterol Free T4 TSH 3rd Generation RPR Laboratory Results - last 24 hr 04/20/17 04/21/17 04/21/17 21:26 07:15 11:27 POC Glucose (mg/dL) 148 H 141 H 159 H Urine Color Urine Appearance Urine pH Ur Specific [place] Urine Protein Urine Glucose (UA) Urine Ketones Urine Blood Urine Nitrate Urine Bilirubin Urine Urobilinogen Ur Leukocyte Esterase Urine RBC Urine WBC Ur Epithelial Cells Urine Bacteria 04/21/17 04/21/17 16:20 16:25 POC Glucose (mg/dL) 118 H Urine Color Yellow Urine Appearance Sl cloudy Urine pH 6.5 Ur Specific [place] 1.015 Urine Protein Negative Urine Glucose (UA) Negative Urine Ketones Negative Urine Blood Negative Urine Nitrate Negative Urine Bilirubin Negative Urine Urobilinogen 0.2 Ur Leukocyte Esterase Trace H Urine RBC Negative Urine WBC 2 - 5 Ur Epithelial Cells Many Urine Bacteria Few Temp Pulse Resp BP Pulse Ox 98.2 F 81 20 94/59 L 04/21/17 07:44 04/21/17 17:02 04/21/17 07:44 04/21/17 17:02 Cardiology / EKG Studies 04/22/17 15:27 EKG [ELECTROCARDIOGRAM] Stat Comment: Reason For Exam: medical clearance Temp Pulse Resp BP Pulse Ox 98.4 F 75 18 120/77 93 L 04/22/17 15:00 04/22/17 16:04 04/22/17 15:00 04/22/17 16:04 04/22/17 15:00 Laboratory Results - last 24 hr 04/21/17 04/21/17 04/22/17 16:20 21:15 07:32 POC Glucose (mg/dL) 150 H 138 H Urine Color Yellow Urine Appearance Sl cloudy Urine pH 6.5 Ur Specific [place] 1.015 Urine Protein Negative Urine Glucose (UA) Negative Urine Ketones Negative Urine Blood Negative Urine Nitrate Negative Urine Bilirubin Negative Urine Urobilinogen 0.2 Ur Leukocyte Esterase Trace H Urine RBC Negative Urine WBC 2 - 5 Ur Epithelial Cells Many Urine Bacteria Few Urine Opiates Screen Urine Methadone Screen Ur Barbiturates Screen Ur Phencyclidine Scrn Ur Amphetamines Screen U Benzodiazepines Scrn U Oth Cocaine Metabols U Cannabinoids Screen 04/22/17 04/22/17 04/22/17 11:02 12:00 12:00 POC Glucose (mg/dL) 143 H Urine Color Yellow Urine Appearance Clear Urine pH 6.0 Ur Specific [place] <= 1.005 Urine Protein Negative Urine Glucose (UA) Negative Urine Ketones Negative Urine Blood Negative Urine Nitrate Negative Urine Bilirubin Negative Urine Urobilinogen 0.2 Ur Leukocyte Esterase Negative Urine RBC Urine WBC Ur Epithelial Cells Urine Bacteria Urine Opiates Screen Negative Urine Methadone Screen Negative Ur Barbiturates Screen Negative Ur Phencyclidine Scrn Negative Ur Amphetamines Screen Negative U Benzodiazepines Scrn Negative U Oth Cocaine Metabols Negative U Cannabinoids Screen Negative 04/22/17 16:38 POC Glucose (mg/dL) 125 H Urine Color Urine Appearance Urine pH Ur Specific [place] Urine Protein Urine Glucose (UA) Urine Ketones Urine Blood Urine Nitrate Urine Bilirubin Urine Urobilinogen Ur Leukocyte Esterase Urine RBC Urine WBC Ur Epithelial Cells Urine Bacteria Urine Opiates Screen Urine Methadone Screen Ur Barbiturates Screen Ur Phencyclidine Scrn Ur Amphetamines Screen U Benzodiazepines Scrn U Oth Cocaine Metabols U Cannabinoids Screen Laboratory Results - last 24 hr 04/22/17 04/23/17 04/23/17 21:26 07:45 11:49 POC Glucose (mg/dL) 131 H 138 H 111 H 12/29/17 16:11 POC Glucose (mg/dL) 146 H Temp Pulse Resp BP Pulse Ox 97.9 F 98 H 20 120/73 93 L 04/23/17 07:37 04/23/17 17:03 04/23/17 07:37 04/23/17 17:03 04/22/17 15:00 Medication Change: No Medical Record Reviewed: Yes Mental Status Examination - Cognitive Function Orientation: Person, Place Memory: Impaired Attention: Poor Concentration: Poor Association: Loose Fund of Knowledge: Poor - Mood Mood: Depressed - Affect Affect: Constricted, Flat - Formal Thought Process Formal Thought Process: Hallucinations, Delusions, Paranoia, Loosening of associations, Circumstantial - Suicidal Ideation Suicidal Ideation: No - Homicidal Ideation Homicidal Ideation: No Goal/Treatment Plan - Goal/Treatment Plan Need for Continued Stay: Remain at risks for inpatient hospitalization, Severe depression anxiety, Discharge may exacerbated symptoms, Severe functional impairment Progress Toward Problem(s) and Goals/Treatment Plan: 1:1 for patient safety Monitor mental status closely Psychoeducation Psychopharmacology/adjustment of medications as needed/ monitoring possible side effects Evaluate pt on daily basis Compliance with medications and follow up appointments Suicide and homicide risk assessment and prevention, coping strategies, safety plan Relapse prevention Reduction of symptoms Improve functional status Family involvement As outpatient: cognitive behavioral therapy Estimated Date of D/C: 04/23/17 (will monitor closely)
== END 2017-04-23 18:56 | DRG 885 ==
LOC: PSYC 15:56
PROVIDERS: ADMIT Psychiatry & Neurology Psychiatry; ATTEND Psychiatry & Neurology Psychiatry
PROC: GZ3ZZZZ Medication Management (ICD-10-PCS; principal; 2017-04-17)
DX: F25.9 Schizoaffective disorder, unspecified (principal); F05 Delirium due to known physiological condition; I11.0 Hypertensive heart disease with heart failure; I50.9 Heart failure, unspecified; J44.9 Chronic obstructive pulmonary disease, unspecified; I25.10 Atherosclerotic heart disease of native coronary artery without angina pectoris; E11.9 Type 2 diabetes mellitus without complications; F41.9 Anxiety disorder, unspecified; E78.1 Pure hyperglyceridemia; E78.00 Pure hypercholesterolemia, unspecified; E03.9 Hypothyroidism, unspecified; G47.00 Insomnia, unspecified; Z87.440 Personal history of urinary (tract) infections; Z79.84 Long term (current) use of oral hypoglycemic drugs; Z87.891 Personal history of nicotine dependence

== ENCOUNTER 2017-10-01 16:56 | Emergency (ER) | payer MEDICARE, BC ==
[2017-10-01 16:57] VITALS: PULSE 89
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
[2017-10-01 17:31] VITALS: BMI 34.4
[2017-10-01 17:34] VITALS: BP 126/76
[2017-10-01 17:41] VITALS: PULSE 90; RESP 19; TEMP 98; O2SAT 99
== END 2017-10-01 17:41 | disposition home or self-care (01) ==
LOC: ED 16:56
DX: Z00.00 Encounter for general adult medical examination without abnormal findings (principal); F17.210 Nicotine dependence, cigarettes, uncomplicated; E11.9 Type 2 diabetes mellitus without complications; E03.9 Hypothyroidism, unspecified; I50.9 Heart failure, unspecified; I10 Essential (primary) hypertension; F20.9 Schizophrenia, unspecified

== ENCOUNTER 2017-10-05 11:22 | Inpatient (IN) | payer MEDICARE, BC ==
[2017-10-05 11:23] VITALS: PULSE 89; BMI 34.4
[2017-10-05 12:29] LABS: BASO # 0.01 K/mm3 (0.0-2.0); BASO % 0.1 % (0.0-3.0); EOS # 0.1 (0.0-0.7); EOS % 0.5 % (1.5-5.0); GRAN # 7.34 (1.4-6.5); GRAN % 79.4 % (50.0-68.0); HEMOGLOBIN 15.2 g/dL (12.0-16.0); LYMPH # 1.4 (1.2-3.4); LYMPH % 14.6 % (22.0-35.0); MEAN CELL VOLUME 88.9 fl (80.0-105.0); MEAN CORPUSCULAR HEMOGLOBIN 30.7 pg (25.0-35.0); MEAN CORPUSCULAR HGB CONC 34.5 g/dl (31.0-37.0); MEAN PLATELET VOLUME 10.3 fl (7.0-11.0); MONO # 0.5 (0.1-0.6); MONO % 5.4 % (1.0-6.0); RBC 4.95 10^6/uL (3.5-6.1); RED CELL DISTRIBUTION WIDTH 13.1 % (11.5-14.5); URINE BILIRUBIN NEGATIVE (NEGATIVE); URINE BLOOD NEGATIVE (NEGATIVE); URINE GLUCOSE (UA) NEGATIVE (NEGATIVE); URINE LEUKOCYTE ESTERASE SMALL Leu/uL (NEGATIVE); URINE PROTEIN TRACE mg/dL (<30 mg/dL); URINE UROBILINOGEN 0.2 E.U./dL (<1 E.U./dL); WHITE BLOOD COUNT 9.3 10^3/ul (4.5-11.0)
[2017-10-05 12:34] LABS: URINE APPEARANCE CLEAR (CLEAR); URINE COLOR YELLOW (YELLOW)
--- NOTE | 2017-10-05 12:38 | RAD ---
HISTORY: anxious/depressed COMPARISON: 04/16/2017 FINDINGS: LUNGS: No active pulmonary disease. PLEURA: No significant pleural effusion identified, no pneumothorax apparent. CARDIOVASCULAR: Normal. OSSEOUS STRUCTURES: No significant abnormalities. VISUALIZED UPPER ABDOMEN: Normal. OTHER FINDINGS: None. IMPRESSION: No active disease.
[2017-10-05 12:42] LABS: ACETAMINOPHEN < 10.0 ug/ml (10.0-20.0); ALB/GLOB RATIO 1.6 (1.1-1.8); ALBUMIN 4.6 g/dL (3.0-4.8); ALT/SGPT 32 U/L (7-56); AST/SGOT 23 U/L (14-36); BLOOD UREA NITROGEN 12 mg/dL (7-21); CALCIUM 9.9 mg/dL (8.4-10.5); GFR AFRICAN-AMERICAN > 60; GFR NON-AFRICAN AMERICAN > 60; SALICYLATE < 1 mg/dL (2.0-20.0)
[2017-10-05 12:46] LABS: URINE BACTERIA MANY (NEG); URINE EPITHELIAL CELLS MANY /hpf (0-5); URINE WBC 15 - 20 /hpf (0-6)
[2017-10-05 12:47] LABS: URINE COARSE GRANULAR CAST TRACE /hpf (0-2)
--- NOTE | 2017-10-05 12:50 | ED PDOC ---
Arrival/HPI - General Chief Complaint: Psychiatric Evaluation Time Seen by Provider: 10/05/17 12:12 Historian: Patient - History of Present Illness Narrative History of Present Illness (Text): 10/05/17 12:40 Patient is a 62 year old female who presents to the Emergency department complaining of severe depression. Patient states that she is experiencing insomnia, lack of appetite, fatigue, and doesn't want to do anything, worsening over the last 1 week. Patient reports that she stopped taking her medications 1 weeks ago because she ran out. She subsequently tried to obtain refills from her assigned psychiatrist without any success. She tried obtaining a refill today at [facility] but was unsuccessful. Patient admits to having auditory hallucination and hears 1 voice which repeatedly states "come on , come on". She has suicidal ideation and admits to thinking about jumping in front of a bus. She denies any homicidal ideation, and denies any visual/ tactile hallucination. Patient denies any fever, chills, chest pain, dyspnea, abdominal pain, nausea, vomiting, diarrhea, urinary/bowel changes, or any other medical complaints. She also denies any falls, trauma, or sick contact. pt is here for further eval PCP: Pastora Antoine Time/Duration: 1 week Symptom Onset: Gradual Symptom Course: Unchanged Activities at Onset: Rest Context: Home Past Medical History - Provider Review Nursing Documentation Reviewed: Yes - Travel History Have you recently traveled outside [place] w/in the past 3 mons?: No - Past History Past History: No Previous - Infectious Disease Hx of Infectious Diseases: None - Reproductive Menopause: Yes Currently : No - Cardiac Hx Cardiac Disorders: Yes Hx Congestive Heart Failure: Yes Hx Hypertension: Yes - Pulmonary Hx Respiratory Disorders: Yes Hx Asthma: Yes - Neurological Hx Neurological Disorder: No - HEENT Hx HEENT Disorder: No - Renal Hx Renal Disorder: No - Endocrine/Metabolic Hx Endocrine Disorders: Yes Hx Diabetes Mellitus Type 2: Yes Hx Hypothyroidism: Yes - Hematological/Oncological Hx Blood Disorders: No - Integumentary Hx Dermatological Disorder: No - Musculoskeletal/Rheumatological Hx Falls: No - Gastrointestinal Hx Gastrointestinal Disorders: No - Genitourinary/Gynecological Hx Genitourinary Disorders: No - Psychiatric Hx Substance Use: No - Surgical History Hx Cardiac Catheterization: Yes Hx Section: Yes Hx Cholecystectomy: Yes Hx Hysterectomy: Yes Hx Orthopedic Surgery: Yes (Bilateral ankle reconstruction, back surgery) - Anesthesia Hx Anesthesia: No - Suicidal Assessment Suicide Risk Precautions: Suicide Precautions Family/Social History - Physician Review Nursing Documentation Reviewed: Yes Family/Social History: No Known Family HX Smoking Status: Heavy Smoker > 10 Cigarettes Daily (2 packs per day) Hx Alcohol Use: No Hx Substance Use: No 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 Hx Substance Use Treatment: No Allergies/Home Meds Allergies/Adverse Reactions: Allergies No Known Allergies Allergy (Verified 10/05/17 11:35) Home Medications: Home Meds Medication Instructions Recorded Confirmed Benztropine [Cogentin] 0.5 tab PO BID 10/05/17 10/05/17 Donepezil HCl [Aricept] 15 mg PO DAILY 10/05/17 10/05/17 Fenofibrate [Tricor] 48 mg PO DAILY 10/05/17 10/05/17 LORazepam [Ativan] 0.5 mg PO BID 10/05/17 10/05/17 Omeprazole Magnesium [Prilosec Otc] 20 mg PO DAILY 10/05/17 10/05/17 Quetiapine Fumarate [Seroquel] 400 mg PO HS 10/05/17 10/05/17 amLODIPine [Norvasc] 5 mg PO DAILY 10/05/17 10/05/17 Review of Systems - Physician Review All systems were reviewed & negative as marked: Yes - Review of Systems Constitutional: Fatigue. absent: Fevers, Night Sweats Eyes: Normal ENT: Normal Respiratory: absent: SOB Cardiovascular: absent: Chest Pain Gastrointestinal: absent: Abdominal Pain, Stool Changes, Diarrhea, Nausea, Vomiting Genitourinary Female: Normal. absent: Urine Output Changes Musculoskeletal: Normal Skin: Normal Neurological: Normal Endocrine: Normal Hemo/Lymphatic: Normal Psychiatric: Anxiety, Depression, Suicidal Ideation, Other ((+) auditory hallucination; (-) Homicidal ideation) Physical Exam - Physical Exam Narrative Physical Exam (Text): 10/05/17 12:53 General: alert/awake, GCS = 15, oriented x 3, resting in bed, uncomfortable, cooperative, interactive; NAD Head: NC/AT EYE: PERRLA, EOMI, sclera anicteric, no nystagmus, no photophobia; visual field intact b/l Facial: WNL Oral: uvula/tongue are midline, no exudate/lesions, no drooling/stridor, no dysphonia; intact dentitions; mild dry oral mucosa NECK: intact ROM, no midline tenderness, no nuchal rigidity, no meningeal signs ; no step off Chest: CTA b/l, no w/r/r; no tachypenia, no accessory muscle use noted Cardiac: +S1, +S2, no m/r/r, no tachycardia Abdominal: +BS, soft/nd/nt, well nourished patient; no masses/rebound/guarding/ rigidity; no mary's sign, no mcburney's point tenderness Extremities: intact ROM, strength 5/5 grossly intact in all limbs, neurovasc intact b/l; + ambulatory; reflex +2/2 BACK: no step off, no midline tenderness, NO crepitus, no gross deformities noted; Intact ROM SKIN: cap refill < 1 sec, no ulcerations, no petechiae, no rashes; no gross pallor NEURO: CNII-XII WNL, no facial asymmetries, no slurr speech, oriented x 3 NIH stroke scale ~ 0 Psych: normal insight, flat/depressed affect; follows command with ease Vital Signs Reviewed: Yes Vital Signs Temp Pulse Resp BP Pulse Ox 10/05/17 15:12 74 18 126/82 99 10/05/17 13:32 68 16 119/80 99 10/05/17 12:10 98.4 F 75 18 117/78 100 Temperature: Afebrile Blood Pressure: Normal Pulse: Regular Respiratory Rate: Normal Appearance: Positive for: Well-Appearing, Non-Toxic. No: Ill-Appearing, Unkept , Uncomfortable Pain Distress: None Mental Status: Positive for: Alert and Oriented X 3 - Systems Exam Head: Present: Atraumatic, Normocephalic Medical Decision Making ED Course and Treatment: 10/05/17 12:53 Impression: Patient is a 62 year old female who presents to the Emergency department complaining of severe depression. Differential Diagnosis included but are not limited to: Severe depression, medication noncompliance. Medical clearance for psych evaluation. Si/severe depression/medication non-compliance Plan: --EKG --Drug screening --Ativan --Urine culture --One on One --AES Crisis Evaluation -- Reassess and disposition Prior Visits: Notes and results from previous visits were reviewed. Progress Notes: 200pm pt remained comfortable pt is not in any distress pt is awaiting PES crisis counselor evaluation PT IS MEDICALLY CLEARED FOR PSYCH EVAL 230pm crisis counselor is at bedside, evaluated patient, will continue to monitor 10/05/17 15:06 PES/crisis counselor recommend patient for inpatient placement, pt agrees/ accepts, will admit patient to oncall psychiatrists pt is made aware of her medical results agrees with admission Re-evaluation Time: 15:00 Reassessment Condition: Unchanged - Lab Interpretations Lab Results: 10/05/17 11:55 10/05/17 11:55 Lab Results 10/05/17 11:55: Alcohol, Quantitative < 10 10/05/17 11:55: Salicylates < 1 L, Acetaminophen < 10.0 L 10/05/17 11:55: Urine Opiates Screen Negative, Urine Methadone Screen Negative, Ur Barbiturates Screen Negative, Ur Phencyclidine Scrn Negative, Ur Amphetamines Screen Negative, U Benzodiazepines Scrn Negative, U Oth Cocaine Metabols Negative, U Cannabinoids Screen Negative 10/05/17 11:55: Sodium 146, Potassium 3.6, Chloride 108 H, Carbon Dioxide 21, Anion Gap 21 H, BUN 12, Creatinine 0.6 L, Est GFR ( Amer) > 60, Est GFR ( Non-Af Amer) > 60, Random Glucose 101, Calcium 9.9, Magnesium 1.9, Total Bilirubin 0.3, AST 23, ALT 32, Alkaline Phosphatase 82, Total Protein 7.6, Albumin 4.6, Globulin 3.0, Albumin/Globulin Ratio 1.6 10/05/17 11:55: Urine Color Yellow, Urine Appearance Clear, Urine pH 6.0, Ur Specific [place] >= 1.030, Urine Protein Trace H, Urine Glucose (UA) Negative, Urine Ketones Negative, Urine Blood Negative, Urine Nitrate Negative, Urine Bilirubin Negative, Urine Urobilinogen 0.2, Ur Leukocyte Esterase Small H, Urine RBC 1 - 3, Urine WBC 15 - 20, Ur Epithelial Cells Many, Urine Bacteria Many, Coarse Granular Casts Trace H, Urine Other Uyeast 10/05/17 11:55: WBC 9.3 D, RBC 4.95, Hgb 15.2, Hct 44.0, MCV 88.9 D, MCH 30.7 , MCHC 34.5, RDW 13.1, Plt Count 348, MPV 10.3, Gran % 79.4 H, Lymph % (Auto) 14.6 L, [place] % (Auto) 5.4, Eos % (Auto) 0.5 L, Baso % (Auto) 0.1, Gran # 7.34 H , Lymph # (Auto) 1.4, [place] # (Auto) 0.5, Eos # (Auto) 0.1, Baso # (Auto) 0.01 I have reviewed the lab results: Yes Interpretation: All labs normal - RAD Interpretation Narrative RAD Interpretations (Text): 10/05/17 13:18 Chest X-ray: Creator : Edy Ball MD COMPARISON: 04/16/2017 FINDINGS: LUNGS:No active pulmonary disease. PLEURA: No significant pleural effusion identified, no pneumothorax apparent. CARDIOVASCULAR: Normal. OSSEOUS STRUCTURES: No significant abnormalities. VISUALIZED UPPER ABDOMEN: Normal. OTHER FINDINGS: None. IMPRESSION: No active disease. Radiology Orders: 10/05/17 12:20 CHEST PORTABLE [RAD] Stat Route Aide: Radiologist - EKG Interpretation EKG Interpretation (Text): 10/05/17 15:08 NSR at 75 bpm, LAD, no ectopy, voltage criteria LVH, biphasic T in leads III, L , V1-3, no st changes, ABN LEKG; unchanged compare with old ekg 03/2017 Interpreted by ED Physician: Yes Type: 12 lead EKG Comparison: Similar to previous EKG - Medication Orders Current Medication Orders: Discontinued Medications Lorazepam (Ativan) 1 mg PO ONCE ONE PRN Reason: Protocol Stop: 10/05/17 12:22 Last Admin: 10/05/17 12:39 Dose: 1 mg - Scribe Statement The provider has reviewed the documentation as recorded by the Scribdotty Tidwell Provider Scribe Attestation: All medical record entries made by the Scribe were at my direction and personally dictated by me. I have reviewed the chart and agree that the record accurately reflects my personal performance of the history, physical exam, medical decision making, and the department course for this patient. I have also personally directed, reviewed, and agree with the discharge instructions and disposition. Disposition/Present on Arrival - Present on Arrival Any Indicators Present on Arrival: No History of DVT/PE: No History of Uncontrolled Diabetes: No Urinary Catheter: No History of Decub. Ulcer: No History Surgical Site Infection Following: None - Disposition Have Diagnosis and Disposition been Completed?: Yes Diagnosis: Schizophrenia, Depression, Suicidal ideation, Medical clearance for psychiatric admission, Hallucination Disposition: HOSPITALIZED Disposition Time: 15:05 Patient Plan: Admission Patient Problems: Current Active Problems Problem Status Onset Hallucination Acute Schizophrenia Acute Depression Acute Suicidal ideation Acute Medical clearance for psychiatric admission Acute Condition: STABLE Forms: [employer] (Dominican)
[2017-10-05 13:00] LABS: BARBITURATES, UR NEGATIVE (NEGATIVE); BENZODIAZEPINES, UR NEGATIVE (NEGATIVE); OPIATES, UR NEGATIVE (NEGATIVE); PHENCYCLIDINE, UR NEGATIVE (NEGATIVE)
--- NOTE | 2017-10-05 15:15 | CARD ---
APPROVED REPORT EKG Measurement Heart [id number] <Conclusion> Normal sinus rhythm Moderate voltage criteria for LVH, may be normal variant Nonspecific ST and T wave abnormality Prolonged QT Abnormal ECG
[2017-10-05 16:57] VITALS: O2SAT 100
[2017-10-05] MEDS ORDERED: Alum-Mag Hydrox-Simethicone Susp (30 mL) PO PRN ×2 (17:10→18:17)
[2017-10-05] MEDS ORDERED: Magnesium Hydroxide Susp 30 ml UD PO PRN ×2 (17:10→18:18)
[2017-10-05] MEDS ORDERED: LORazepam Half Tablet 0.25 MG PO PRN (18:03)
--- NOTE | 2017-10-05 18:47 | PCM.BM ---
<Fidelina Toribio - Last Filed: 10/05/17 18:43> Treatment Plan Problems - Problems identified on initial assessmt INEFFECTIVE COPING SKILLS Date Initiated: 10/05/17 Time Initiated: 20:00 Assessment reference: NA Status: Active Priority: 1 ALTEREED SLEEP Date Initiated: 10/05/17 Time Initiated: 20:00 Assessment reference: NA Status: Active Priority: 2 HOPELESS/HE;PLESS Date Initiated: 10/05/17 Time Initiated: 20:00 Assessment reference: NA Status: Active Priority: 3 MEDICATION NON ADHERENCE Date Initiated: 10/05/17 Time Initiated: 20:00 Assessment reference: NA Status: Active Priority: 4 Treatment assets and liabiliti Patient Assests: cooperative, educated, self-reliant, ADL independent, negotiates basic needs, cognitively intact Patient Liabilities: medical problems - Milieu Protocol Maintain good personal hygiene: daily Encourage regular showers, daily Remind patient to perform daily oral care, daily Assist patient to perform ADL's Maintain personal safety: every shift Educate patient to report safety concerns to staff, every shift Monitor environment for contraband/sharps Medication safety: Monitor for expected outcome, potential side effects: every shift, Assess barriers to learning: every shift, Assess readiness for medication education: every shift Discharge/Continuing Care - Education Needs Education Needs: Patient Medication, Patient Diagnosis/Disease Process, Patient Coping Skills, Patient Placement options, Patient Community resources, Patient Activities of Daily Living, Patient Health Practices/Safety, Patient Personal Hygiene/Grooming, Patient Aftercare Safety Plan - Discharge Discharge Criteria: Tolerates medication w/o severe side effects, Free of Suicidal thoughts, Free of agitation, Normal sleep pattern, Ability to care for self, Reduction of target symptoms Discharge to:: Home <Ewa More - Last Filed: 10/06/17 10:30> - Diagnosis (1) Schizophrenia Status: Acute Interventions: 10/06/17 10:30 Psychoeducation/psychotherapy Psychopharmacology/adjustment of medications as needed/ monitoring possible side effects Evaluate pt on daily basis Compliance with medications and follow up appointments Long acting medication if pt is noncompliant with pill form Suicide and homicide risk assessment and prevention, coping strategies, safety plan Relapse prevention Reduction of symptoms Improve functional status Possible assertive community treatment Cognitive behavioral therapy Family involvement Possible social skill training as outpatient <Olya Bui - Last Filed: 10/06/17 16:17> Family Contact Family involvement: Famliy/SO not involved - Outside Agency [facility] Care involvment: Information-sharing Agency contact name: [facility] Agency contact number: [phone]
[2017-10-06] MEDS: Pantoprazole 20 mg EC Tab PO SCH (06:23)
[2017-10-06 08:26] LABS: HDL CHOLESTEROL 42 mg/dL (29-60)
[2017-10-06 08:37] LABS: LDL CHOLESTEROL 134 mg/dL (0-129)
[2017-10-06 08:43] LABS: FREE T4 1.15 ng/dL (0.78-2.19)
--- NOTE | 2017-10-06 15:29 | PCM.PSYCH ---
Initial Psychiatric Evaluation - Initial Psychiatric Evaluation Type of Admission: Voluntary Legal Status: Capacity (Patient has capacity to sign consent for treatment) Chief Complaint (in patient's own words): "Dr. Mcneil, I was very depressed, my son from cancer, I wanted to end it all, I was thinking to walk into the traffic and jump in front of the bus , but I decided to come to the hospital, I need help" Patient's Reaction to Hospitalization: pt was admitted for evaluation of depressive symptoms, suicidal ideation with the plan to walk into the traffic. History of Present Illness and Precipitating Events: Shortly, pt is a 62 y/o female reported h/o schizophrenia, not known h/o suicidal attempts, was referred by [facility] and brought in by [place] [employer] after missing person report after eloping from intake appointment 10/05/17 , recent d/c from [facility] on September 13 after a 4 month stay, pt reported being on Invega Sustenna last dose was September 13 234mg IM, pt reported to be compliant with meds but it is doubtful, because as per [facility] , last time pt filled meds were in 2017 pt reported that she feels depressed and expressed thought of killing self by walking in front of the traffic, pt also reported to have command type hallucinations. pt required further evaluation and stabilization, pt was admitted under voluntary status. patient was seen today at the treatment team meeting, patient presented to be depressed, seems to lost a lot of weight, flat affect, tearful, acceptable personal hygiene, good ADLs. Patient reported that he lost her son over pancreatic cancer, pt reported that she was severely depressed, was not able to eat, lost a lot of weight, patient also was not able to sleep, patient reported that she was feeling hopeless and helpless, patient also reported that she hears command type hallucinations " come on, do it". this speech writer is very familiar with this patient from the previous admission to the psychiatric inpatient unit where patient was completely disorganized, agitated, was not making any sense, this time patient presented much better but severely depressed and psychotic. from the previous assessments:collaterals from pt's daughter: Sandi Arechiga([phone]). pt has a hx of using crack cocaine and abusing prescription pills until 2007 in which she was sent to alf for one year and then transferred to [facility] for 4 years. hx of attempting to commit suicide by drug overdose from the s-. pt have hx of aggressive behaviors. h/o court mandated Injection of Invega and court mandated to attend DTP. pt has h/o being in [facility] for 4years. Med. conditions reported: HTN Diabetes and GERD, pt has h/o UTI and delirium. pt denied using drugs or smoking cigarettes. patient has history of memory problems, during the assessment, patient was not aware what hospital she is in. med list from the previous admission. Invega sustenna will be added 234mg IM, last dose September 13, next is October 11. family h/o: denied 10/05/17 11:55 10/05/17 11:55 Lab Results 10/06/17 11:04: POC Glucose (mg/dL) 82 10/06/17 08:09: POC Glucose (mg/dL) 89 10/06/17 08:00: Triglycerides 245 H, Cholesterol 219 H, LDL Cholesterol Direct 134 H, HDL Cholesterol 42 10/06/17 08:00: Free T4 1.15, TSH 3rd Generation 0.85 10/05/17 11:55: Alcohol, Quantitative < 10 10/05/17 11:55: Salicylates < 1 L, Acetaminophen < 10.0 L 10/05/17 11:55: Urine Opiates Screen Negative, Urine Methadone Screen Negative, Ur Barbiturates Screen Negative, Ur Phencyclidine Scrn Negative, Ur Amphetamines Screen Negative, U Benzodiazepines Scrn Negative, U Oth Cocaine Metabols Negative, U Cannabinoids Screen Negative 10/05/17 11:55: Sodium 146, Potassium 3.6, Chloride 108 H, Carbon Dioxide 21, Anion Gap 21 H, BUN 12, Creatinine 0.6 L, Est GFR ( Amer) > 60, Est GFR ( Non-Af Amer) > 60, Random Glucose 101, Calcium 9.9, Magnesium 1.9, Total Bilirubin 0.3, AST 23, ALT 32, Alkaline Phosphatase 82, Total Protein 7.6, Albumin 4.6, Globulin 3.0, Albumin/Globulin Ratio 1.6 10/05/17 11:55: Urine Color Yellow, Urine Appearance Clear, Urine pH 6.0, Ur Specific Britt >= 1.030, Urine Protein Trace H, Urine Glucose (UA) Negative, Urine Ketones Negative, Urine Blood Negative, Urine Nitrate Negative, Urine Bilirubin Negative, Urine Urobilinogen 0.2, Ur Leukocyte Esterase Small H, Urine RBC 1 - 3, Urine WBC 15 - 20, Ur Epithelial Cells Many, Urine Bacteria Many, Coarse Granular Casts Trace H, Urine Other Uyeast 10/05/17 11:55: WBC 9.3 D, RBC 4.95, Hgb 15.2, Hct 44.0, MCV 88.9 D, MCH 30.7 , MCHC 34.5, RDW 13.1, Plt Count 348, MPV 10.3, Gran % 79.4 H, Lymph % (Auto) 14.6 L, [place] % (Auto) 5.4, Eos % (Auto) 0.5 L, Baso % (Auto) 0.1, Gran # 7.34 H , Lymph # (Auto) 1.4, [place] # (Auto) 0.5, Eos # (Auto) 0.1, Baso # (Auto) 0.01 Vital Signs Temp Pulse Pulse Resp BP Pulse Ox 10/06/17 08:58 70 130/78 10/06/17 06:49 98.0 F 70 20 130/78 10/05/17 17:02 84 16 10/05/17 16:18 100 10/05/17 16:10 72 18 121/80 100 10/05/17 15:12 74 18 126/82 99 10/05/17 13:32 68 16 119/80 99 10/05/17 12:10 98.4 F 75 18 117/78 100 Current Medications: Active Medications Generic Name Dose Route Start Last Admin Trade Name Freq PRN Reason Stop Dose Admin Acetaminophen 650 mg 10/05/17 17:10 Tylenol 325mg Tab PO Q4 PRN Pain, moderate (4-7) Acetaminophen 650 mg 10/05/17 18:17 Tylenol 325mg Tab PO Q6H PRN Pain, moderate (4-7) Al Hydrox/Mg Hydrox/Simethicone 30 ml 10/05/17 17:10 Maalox Plus 30 Ml PO DAILY PRN Upset Stomach Al Hydrox/Mg Hydrox/Simethicone 30 ml 10/05/17 18:17 Maalox Plus 30 Ml PO DAILY PRN Indigestion / Heartburn Amlodipine Besylate 5 mg 10/06/17 08:00 10/06/17 08:58 Norvasc PO 5 mg DAILY KALLI Administration Aspirin 81 mg 10/06/17 08:00 10/06/17 08:57 Ecotrin PO 81 mg DAILY KALLI Administration Benztropine Mesylate 0.5 mg 10/06/17 08:00 10/06/17 08:58 Cogentin PO 0.5 mg BID KALLI Administration Chlorpromazine 50 mg 10/05/17 18:09 Thorazine PO Q6 PRN Anxiety Protocol Chlorpromazine 50 mg 10/05/17 18:11 Thorazine IM Q6 PRN Agitation Protocol Donepezil HCl 15 mg 10/06/17 08:00 10/06/17 08:57 Aricept PO 15 mg DAILY KALLI Administration Duloxetine HCl 20 mg 10/06/17 12:30 10/06/17 12:54 Cymbalta PO 20 mg DAILY KALLI Administration Fenofibrate 48 mg 10/06/17 08:00 10/06/17 08:58 Tricor PO 48 mg DAILY KALLI Administration Lorazepam 0.5 mg 10/05/17 18:00 10/06/17 12:56 Ativan PO 0.5 mg TID KALLI Administration Protocol Lorazepam 2 mg 10/05/17 18:17 10/06/17 06:23 Ativan PO 2 mg Q6 PRN Administration Anxiety Protocol Lorazepam 2 mg 10/05/17 18:23 Ativan IM Q6H PRN Agitation Protocol Magnesium Hydroxide 30 ml 10/05/17 17:10 Milk Of Magnesia PO DAILY PRN Constipation Magnesium Hydroxide 30 ml 10/05/17 18:18 Milk Of Magnesia PO DAILY PRN Constipation Metformin HCl 500 mg 10/06/17 08:00 10/06/17 08:58 Glucophage PO 500 mg BID KALLI Administration Nitrofurantoin Macrocrystals 100 mg 10/06/17 08:30 10/06/17 08:57 Macrobid PO 100 mg Q12 KALLI Administration Protocol Pantoprazole Sodium 20 mg 10/06/17 06:00 10/06/17 06:23 Protonix Ec Tab PO 20 mg 0600 KALLI Administration Quetiapine Fumarate 400 mg 10/05/17 22:00 10/05/17 22:48 Seroquel PO 400 mg HS KALLI Administration Protocol Zaleplon 5 mg 10/05/17 18:12 Sonata PO HS PRN Insomnia Past Psychiatric History - Past Psychiatric History Previous Treatment History: Inpatient Prior Professional Help: see HPI Prior Psychiatric Treatment: see HPI At what hospital: see HPI Duration: see HPI Nature of Treatment: see HPI Explanation of prior treatment: see HPI History of Abuse: see HPI History of ETOH/Drug Use: see HPI History of Family Illness: see HPI Pertinent Medical Hx (Current Medical&Sleep Prob, Allergies): Allergies Allergy/AdvReac Type Severity Reaction Status Date / Time No Known Allergies Allergy Verified 10/06/17 06:39 Aspirin [Lo-Dose Aspirin EC] 81 mg PO DAILY #20 tablet. 04/06/17 Levothyroxine [Synthroid] 0.05 mg PO DAILY #14 tab 04/06/17 metFORMIN [glucOPHAGE] 500 mg PO BID #30 tab 04/06/17 Benztropine [Cogentin] 0.5 tab PO BID 10/05/17 Donepezil HCl [Aricept] 15 mg PO DAILY 10/05/17 Fenofibrate [Tricor] 48 mg PO DAILY 10/05/17 LORazepam [Ativan] 0.5 mg PO BID 10/05/17 Omeprazole Magnesium [Prilosec Otc] 20 mg PO DAILY 10/05/17 Quetiapine Fumarate [Seroquel] 400 mg PO HS 10/05/17 amLODIPine [Norvasc] 5 mg PO DAILY 10/05/17 Review of Systems - Review of Systems Systems not reviewed;Unavailable: Acuity of Condition - EENT Eyes: As Per HPI Ears: As Per HPI Nose/Mouth/Throat: As Per HPI - Breasts Breasts: As Per HPI - Cardiovascular Cardiovascular: As Per HPI - Respiratory Respiratory: As Per HPI - Gastrointestinal Gastrointestinal: As Per HPI - Genitourinary Genitourinary: As Per HPI - Reproductive: Female Reproductive:Female: As Per HPI - Menstruation Menstruation: As Per HPI - Musculoskeletal Musculoskeletal: As Par HPI - Integumentary Integumentary: As Per HPI - Neurological Neurological: As Per HPI - Psychiatric Psychiatric: As Per HPI - Endocrine Endocrine: As Per HPI - Hematologic/Lymphatic Hematologic: As Per HPI Mental Status Examination - Personal Presentation Personal Presentation: Looks stated age - Affect Affect: Constricted, Flat - Motor Activity Motor Activity: Psychomotor Retardation - Reliability in Providing Information Reliability in Providing Information: Poor, due to alteration in thoughts, Poor , due to altered mood, Poor, due to cognitve impairment - Speech Speech: Disorganized - Mood Mood: Depressed, Anxious - Formal Thought Process Formal Thought Process: Hallucinations, Delusions, Paranoia, Loosening of associations - Hallucinations/Delusions Hallucinations: Auditory - Obsessions/Compulsions Obsessions: None Compulsions: None - Cognitive Functions Orientation: Person Sensorium: Alert Attention/Concentration: Easily distracted Abstract Thinking: [place] Estimate of Intelligence: Below average Judgement: Intact, as evidence by: Insight regarding need for hospitalization - Risk Risk: Suicidal, Self-mutilation, Diminished functioning - Strength & Assets Inventory Strength & Assets Inventory: Cooperative - Limitations Limitations: Other (long h/o mental illness, severety of symptoms, recent loss) DSM 5 DX - DSM 5 DSM 5 Diagnosis: schizoaaffective disorder, bipolar type r/o adjustment disorder - Recommended/Plan of Treatment Treatment Recommendations and Plan of Treatment: Milieu/structure/supportive therapy Aspirin [Lo-Dose Aspirin EC] 81 mg PO DAILY Levothyroxine [Synthroid] 0.05 mg PO DAILY metFORMIN [glucOPHAGE] 500 mg PO BID Benztropine [Cogentin] 0.5 tab PO BID Donepezil HCl [Aricept] 15 mg PO DAILY Fenofibrate [Tricor] 48 mg PO DAILY LORazepam [Ativan] 0.5 mg PO TID Omeprazole Magnesium [Prilosec Otc] 20 mg PO DAILY Quetiapine Fumarate [Seroquel] 400 mg PO HS amLODIPine [Norvasc] 5 mg PO DAILY marcin bustamante [id number] October 11 medical consult appreciated SW consultation for discharge plan and social issues Family involvement Follow up on labs Will monitor closely Pt was educated about risk/benefits and alternatives of medications, coping strategies (safety plan, suicide prevention), relapse prevention, importance of follow up with psychiatrist and therapist, stay away from drugs/alcohol/smoking Projected ELOS: 10days Prognosis: guarded Discharge Plan and Discharge Criteria: Pt will be not depressed or manic, will be more hopeful, will be not psychotic or anxious, will be not having thoughts of harming self or others, will be tolerating medications well, will not have major side effects, will be able to function, will not pose threat to self or others. - Smoking Cessation Smoking Cessation Initiated: No Reason for not providing: denied smoking
--- NOTE | 2017-10-07 01:18 | CON ---
DATE: 10/06/2017 HISTORY OF PRESENT ILLNESS: I know Sena from multiple admissions to the psych floor. She comes in being a 62-year-old female with severe depression, lack of sleep, cannot sleep. No appetite, fatigued She ran out of medications. She tried to go to [facility] to get help and they would not help her. Started having auditory hallucinations, suicidal ideation. She thought about jumping in front of a bus and we put her upstairs in the psych unit. PAST MEDICAL HISTORY: CHF, hypertension, asthma, diabetes, hypothyroid, GERD. high triglycerides. She had cardiac cath and C-sections. She had cholecystectomy and hysterectomy, bilateral ankle reconstruction. She had back surgery. FAMILY HISTORY: No known family history. SOCIAL HISTORY: She is a heavy smoker. No alcohol. She said she has been off cocaine for 7 years. ALLERGIES: NO KNOWN DRUG ALLERGIES. MEDICATIONS: She takes Cogentin, Aricept, Tricor, Ativan, and Prilosec. REVIEW OF SYSTEMS: She is very tired and lethargic. No acute vision or hearing changes. No shortness of breath or cough. No chest pain or palpitations. No abdominal pain. No nausea or vomiting. No constipation or diarrhea. No problems urinating. No extremities issues. No skin issues. No ulcers or rashes she knows of. Nothing neurological. She is depressed, anxious, suicidal, or auditory hallucinations. PHYSICAL EXAMINATION: VITAL SIGNS: She has a 98.4 temperature, 68 pulse, 16 respiratory rate, 119/80 blood pressure, 99% O2 sat. GENERAL: She is alert and oriented x3. She is very tired, lethargic. She is sleeping. Easily arousable. No acute distress. HEENT: Head is atraumatic, normocephalic. Extraocular muscles are intact. Pupils are equal and reactive to light and accommodation. Throat is dry. NECK: Supple. HEART: Regular rate. LUNGS: Decreased breath sounds, but clear to auscultation. No wheezes, rhonchi, or rales. ABDOMEN: Soft, nontender. Positive bowel sounds. No guarding. No rebound. No CVA tenderness. EXTREMITIES: Good range of motion. No edema. SKIN: For the most part I could tell is intact. No apparent rashes or ulcers appreciated. NEUROLOGIC: Cranial nerves II through XII grossly intact. She is oriented x3. She is very depressed and sad. LABORATORY DATA: She had multiple tests done. She has a urine drug screen which is clean. She had a urine test which showed many bacteria. I put her on Macrobid for urinary tract infection. Sodium is 146, potassium 3.6. BUN 12, creatinine 0.6. GFR is greater than 60. Sugar is 89. Calcium is 9.9, magnesium 1.9. Total bili is 0.3, AST is 23, ALT is 32, alk phos 82. Total protein 7.6, albumin is 4.6. White count is 9.3, hemoglobin 15.2, hematocrit 44, and platelets of 348. She had a chest x-ray and EKG, which were okay. She will be on her medications. She is here for suicidal ideation, auditory hallucinations, depression, ran out of her medications, diabetes, hypertension, GERD, and UTI. We will follow. We will check her labs tomorrow. Avelino Antoine DO MTDKarthik
[2017-10-07] MEDS: Pantoprazole 20 mg EC Tab PO SCH (06:41)
[2017-10-07 07:05] LABS: HEMOGLOBIN 14.2 g/dL (12.0-16.0); MEAN CELL VOLUME 89.2 fl (80.0-105.0); MEAN CORPUSCULAR HEMOGLOBIN 30.1 pg (25.0-35.0); MEAN CORPUSCULAR HGB CONC 33.7 g/dl (31.0-37.0); MEAN PLATELET VOLUME 10.2 fl (7.0-11.0); RBC 4.72 10^6/uL (3.5-6.1); WHITE BLOOD COUNT 4.5 10^3/ul (4.5-11.0)
[2017-10-07 07:19] LABS: ALB/GLOB RATIO 1.5 (1.1-1.8); ALBUMIN 3.9 g/dL (3.0-4.8); ALT/SGPT 29 U/L (7-56); AST/SGOT 17 U/L (14-36); BLOOD UREA NITROGEN 16 mg/dL (7-21); GFR AFRICAN-AMERICAN > 60; GFR NON-AFRICAN AMERICAN > 60
[2017-10-07] MEDS ORDERED: Potassium Chloride 20 mEq ER Tab PO ONE (09:35)
--- NOTE | 2017-10-07 14:25 | PN ---
DATE: 10/07/2017 SUBJECTIVE: I saw her resting comfortably in bed. She tells me she is very anxious still. MEDICATIONS: She is on Aricept, Ativan, Cogentin, Cymbalta, Ecotrin, Glucophage, Maalox, Macrobid, milk of magnesia, Norvasc, Protonix, Seroquel, Sonata, Thorazine, TriCor and Tylenol. PHYSICAL EXAMINATION: VITAL SIGNS: She has a 97 temperature, 95 pulse, 117/67 blood pressure, 18 respiratory rate. HEENT: Head is atraumatic, normocephalic. HEART: Regular rate. LUNGS: Decreased breath sounds, but clear. ABDOMEN: Soft, nontender. Positive bowel sounds. EXTREMITIES: No edema. LABORATORY DATA: She has a 4.5 white count, 14.2 hemoglobin, 42.1 hematocrit with 266 platelets. Sodium 145, potassium is 3.4. She is going to get the potassium today. We will recheck her labs tomorrow. BUN 16, creatinine 0.5. GFR is greater than 60, sugar is 95, calcium is 9, AST is 17, ALT is 29, alkaline phosphatase 62. IMPRESSION AND PLAN: She is on antibiotics for urinary tract infection. I encouraged her to drink a lot of water, participate in groups. She has Streptococcus anginosus group in her urine and IS SENSITIVE TO PENICILLIN. I will stop her Macrobid, put her on amoxicillin 500 three times a day for that. I encouraged her to participate. She is here for numerous reasons, suicidal ideation, auditory hallucinations, depression, high triglycerides, diabetes, hypertension, low potassium, urinary tract infection and gastroesophageal reflux disease. Avelino Antoine DO [facility]
--- NOTE | 2017-10-07 16:42 | PCM.PYCHPN ---
Psychiatric Progress Note - Psychiatric Progress Note Patient seen today, length of contact: 30 minutes Patient Chief Complaint: "i hear voices, come on, come on, come on!!!!!!!" Problems Identified/Issues Discussed: Suicide/ homicide prevention, past psychiatric h/o, current psychiatric symptoms , medical problems, risk/benefits and alternatives of medications, medications compliance, coping strategies, substance abuse h/o, relapse prevention, importance of follow up with psychiatrist and therapist, discharge plan. Medical Problems: HTN Diabetes and GERD, pt has h/o UTI and delirium. He is in the interview DSM 5 Symptoms Update: Shortly, pt is a 62 y/o female reported h/o schizophrenia, not known h/o suicidal attempts, was referred by [facility] and brought in by [place] [employer] after missing person report after eloping from intake appointment 10/05/17 , recent d/c from [facility] on September 13 after a 4 month stay, pt reported being on Invega Sustenna last dose was September 13 234mg IM, pt reported to be compliant with meds but it is doubtful, because as per [facility] , last time pt filled meds were in 2017 pt reported that she feels depressed and expressed thought of killing self by walking in front of the traffic, pt also reported to have command type hallucinations. pt required further evaluation and stabilization, pt was admitted under voluntary status. patient was seen today in her room, patient is withdrawn, depressed, laying in dark, tearful during the interview, patient reported that she still feels depressed and she hears voices "come on, calm on, come on" patient does not know what does it mean but reported voices to be "disturbing". as per staff patient is self isolating, not participating in unit activities, tearful. Emotional support, empathic listening were provided to the patient, patient still grieving over the loss of her son. pt was on Invega sustenna 234mg IM, last dose September 13, next is October 11, this medical writer called in for this medication to [facility]. Jacquie patient tolerated medications well, no side effects observed or reported , aims 0, no EPS. Impression: Schizoaffective disorder, bipolar type Rule out adjustment disorder Medication Change: Yes Medical Record Reviewed: Yes Consults ordered or reviewed: patient was seen by medical team, please see consultation also more detailed information Mental Status Examination - Cognitive Function Orientation: Person Memory: Impaired Attention: Poor Concentration: Poor Association: Loose Fund of Knowledge: Poor - Mood Mood: Depressed, Anxious - Affect Affect: Constricted, Flat - Formal Thought Process Formal Thought Process: Hallucinations ("come on, come on, come on"), Delusions , Paranoia, Loosening of associations - Suicidal Ideation Suicidal Ideation: No - Homicidal Ideation Homicidal Ideation: No Goal/Treatment Plan - Goal/Treatment Plan Need for Continued Stay: Remain at risks for inpatient hospitalization, Severe depression anxiety, Discharge may exacerbated symptoms, Failed transitioning, Severe functional impairment Progress Toward Problem(s) and Goals/Treatment Plan: Milieu/structure/supportive therapy Aspirin [Lo-Dose Aspirin EC] 81 mg PO DAILY Levothyroxine [Synthroid] 0.05 mg PO DAILY metFORMIN [glucOPHAGE] 500 mg PO BID Benztropine [Cogentin] 0.5 tab PO BID Donepezil HCl [Aricept] 15 mg PO DAILY Fenofibrate [Tricor] 48 mg PO DAILY LORazepam [Ativan] 0.5 mg PO TID Omeprazole Magnesium [Prilosec Otc] 20 mg PO DAILY Quetiapine Fumarate [Seroquel] 400 mg PO HS amLODIPine [Norvasc] 5 mg PO DAILY [id number] 11 cymbalta 20mg po daily for depression and anxiety medical consult appreciated consultation for discharge plan and social issues Family involvement Follow up on labs Will monitor closely Pt was educated about risk/benefits and alternatives of medications, coping strategies (safety plan, suicide prevention), relapse prevention, importance of follow up with psychiatrist and therapist, stay away from drugs/alcohol/smoking Estimated Date of D/C: 10/15/17 - Smoking Cessation Smoking Cessation Initiated: No
[2017-10-08] MEDS: Pantoprazole 20 mg EC Tab PO SCH (05:26)
[2017-10-08 07:34] LABS: MEAN CELL VOLUME 89.2 fl (80.0-105.0); MEAN CORPUSCULAR HEMOGLOBIN 30.3 pg (25.0-35.0); MEAN PLATELET VOLUME 10.3 fl (7.0-11.0); RBC 4.62 10^6/uL (3.5-6.1); WHITE BLOOD COUNT 5.4 10^3/ul (4.5-11.0)
[2017-10-08 07:55] LABS: ALB/GLOB RATIO 1.5 (1.1-1.8); ALBUMIN 4.1 g/dL (3.0-4.8); ALT/SGPT 30 U/L (7-56); AST/SGOT 17 U/L (14-36); BLOOD UREA NITROGEN 15 mg/dL (7-21); CALCIUM 9.5 mg/dL (8.4-10.5); GFR AFRICAN-AMERICAN > 60; GFR NON-AFRICAN AMERICAN > 60
--- NOTE | 2017-10-08 12:53 | PN ---
DATE: 10/08/2017 SUBJECTIVE: I saw Sena resting comfortably this morning. She was sleeping, easily arousable. She is eating, she is trying to get better. She is on Amoxil for urinary tract infection, Aricept, Ativan, Cogentin, Cymbalta,Ecotrin, Glucophage, milk of magnesia, Maalox, Norvasc, Protonix, Seroquel, Sonata, Thorazine, TriCor and Tylenol. PHYSICAL EXAMINATION: VITAL SIGNS: She has a 98.1 temperature, 83 pulse, 108/73 blood pressure, 20 respiratory rate. HEENT: Head is atraumatic, normocephalic. HEART: Regular rate. LUNGS: Decreased breath sounds, but clear. ABDOMEN: Obese, soft, nontender. EXTREMITIES: No edema. LABORATORY DATA: She has a 5.4 white count, 14 hemoglobin, 41.2 hematocrit with 284 platelets, 144 sodium, potassium is 4, BUN 15, creatinine 0.6, GFR is greater than 60, sugar is 88, calcium is 9.5, AST is 17, ALT is 30, alkaline phosphatase 6.1, total protein is 6.7. ASSESSMENT AND PLAN: She is here for suicidal ideation, auditory hallucination, depression, high triglycerides, diabetes, hypertension, low potassium, urinary tract infection and gastroesophageal reflux disease and she is improving. We will continue with aggressive treatment and care. We will follow. I do think she is starting to improve a little bit as per Psychiatry. Avelino Antoine DO
--- NOTE | 2017-10-08 16:06 | PCM.PYCHPN ---
Psychiatric Progress Note - Psychiatric Progress Note Patient seen today, length of contact: 30 minutes Patient Chief Complaint: "i hear voices, come on, come on, come on!!!!!!!, leave me alone, I don't feel good" Problems Identified/Issues Discussed: Suicide/ homicide prevention, past psychiatric h/o, current psychiatric symptoms , medical problems, risk/benefits and alternatives of medications, medications compliance, coping strategies, substance abuse h/o, relapse prevention, importance of follow up with psychiatrist and therapist, discharge plan. Medical Problems: HTN Diabetes and GERD, pt has h/o UTI and delirium. He is in the interview Diagnostic Results: 10/08/17 07:00 10/08/17 07:00 Lab Results 10/08/17 11:49: POC Glucose (mg/dL) 71 10/08/17 07:20: POC Glucose (mg/dL) 88 10/08/17 07:00: Sodium 144, Potassium 4.0, Chloride 109 H, Carbon Dioxide 23, Anion Gap 16, BUN 15, Creatinine 0.6 L, Est GFR ( Amer) > 60, Est GFR ( Non-Af Amer) > 60, Random Glucose 96, Calcium 9.5, Total Bilirubin 0.3, AST 17, ALT 30, Alkaline Phosphatase 61, Total Protein 6.7, Albumin 4.1, Globulin 2.7, Albumin/Globulin Ratio 1.5 10/08/17 07:00: WBC 5.4, RBC 4.62, Hgb 14.0, Hct 41.2, MCV 89.2, MCH 30.3, MCHC 34.0, RDW 13.0, Plt Count 284, MPV 10.3 10/07/17 21:42: POC Glucose (mg/dL) 91 10/07/17 16:31: POC Glucose (mg/dL) 84 10/07/17 11:14: POC Glucose (mg/dL) 85 10/07/17 07:26: POC Glucose (mg/dL) 85 10/07/17 06:40: Sodium 145, Potassium 3.4 L, Chloride 110 H, Carbon Dioxide 24, Anion Gap 15, BUN 16, Creatinine 0.5 L, Est GFR ( Amer) > 60, Est GFR ( Non-Af Amer) > 60, Random Glucose 95, Calcium 9.0, Total Bilirubin 0.3, AST 17, ALT 29, Alkaline Phosphatase 62, Total Protein 6.5, Albumin 3.9, Globulin 2.6, Albumin/Globulin Ratio 1.5 10/07/17 06:40: WBC 4.5 D, RBC 4.72, Hgb 14.2, Hct 42.1, MCV 89.2, MCH 30.1, MCHC 33.7, RDW 13.0, Plt Count 266, MPV 10.2 10/06/17 21:24: POC Glucose (mg/dL) 91 10/06/17 16:15: POC Glucose (mg/dL) 93 10/06/17 11:04: POC Glucose (mg/dL) 82 10/06/17 08:09: POC Glucose (mg/dL) 89 10/06/17 08:00: Triglycerides 245 H, Cholesterol 219 H, LDL Cholesterol Direct 134 H, HDL Cholesterol 42 10/06/17 08:00: Free T4 1.15, TSH 3rd Generation 0.85 10/06/17 08:00: RPR Nonreactive 10/05/17 11:55: Alcohol, Quantitative < 10 10/05/17 11:55: Salicylates < 1 L, Acetaminophen < 10.0 L 10/05/17 11:55: Urine Opiates Screen Negative, Urine Methadone Screen Negative, Ur Barbiturates Screen Negative, Ur Phencyclidine Scrn Negative, Ur Amphetamines Screen Negative, U Benzodiazepines Scrn Negative, U Oth Cocaine Metabols Negative, U Cannabinoids Screen Negative 10/05/17 11:55: Sodium 146, Potassium 3.6, Chloride 108 H, Carbon Dioxide 21, Anion Gap 21 H, BUN 12, Creatinine 0.6 L, Est GFR ( Amer) > 60, Est GFR ( Non-Af Amer) > 60, Random Glucose 101, Calcium 9.9, Magnesium 1.9, Total Bilirubin 0.3, AST 23, ALT 32, Alkaline Phosphatase 82, Total Protein 7.6, Albumin 4.6, Globulin 3.0, Albumin/Globulin Ratio 1.6 10/05/17 11:55: Urine Color Yellow, Urine Appearance Clear, Urine pH 6.0, Ur Specific [place] >= 1.030, Urine Protein Trace H, Urine Glucose (UA) Negative, Urine Ketones Negative, Urine Blood Negative, Urine Nitrate Negative, Urine Bilirubin Negative, Urine Urobilinogen 0.2, Ur Leukocyte Esterase Small H, Urine RBC 1 - 3, Urine WBC 15 - 20, Ur Epithelial Cells Many, Urine Bacteria Many, Coarse Granular Casts Trace H, Urine Other [place] 10/05/17 11:55: WBC 9.3 D, RBC 4.95, Hgb 15.2, Hct 44.0, MCV 88.9 D, MCH 30.7 , MCHC 34.5, RDW 13.1, Plt Count 348, MPV 10.3, Gran % 79.4 H, Lymph % (Auto) 14.6 L, [place] % (Auto) 5.4, Eos % (Auto) 0.5 L, Baso % (Auto) 0.1, Gran # 7.34 H , Lymph # (Auto) 1.4, [place] # (Auto) 0.5, Eos # (Auto) 0.1, Baso # (Auto) 0.01 Vital Signs Temp Pulse Pulse Resp BP Pulse Ox 10/08/17 08:42 83 108/73 10/08/17 07:17 98.1 F 83 20 108/73 10/07/17 16:00 109 H 137/76 10/07/17 09:06 955 H 117/65 10/07/17 07:14 97.0 F L 95 H 18 117/67 10/06/17 16:00 104 H 136/97 H 10/06/17 08:58 70 130/78 10/06/17 06:49 98.0 F 70 20 130/78 10/05/17 17:02 84 16 10/05/17 16:18 100 10/05/17 16:10 72 18 121/80 100 10/05/17 15:12 74 18 126/82 99 10/05/17 13:32 68 16 119/80 99 10/05/17 12:10 98.4 F 75 18 117/78 100 DSM 5 Symptoms Update: Shortly, pt is a 62 y/o female reported h/o schizophrenia, not known h/o suicidal attempts, was referred by [facility] and brought in by [place] [employer] after missing person report after eloping from intake appointment 10/05/17 , recent d/c from [facility] on September 13 after a 4 month stay, pt reported being on Invega Sustenna last dose was September 13 234mg IM, pt reported to be compliant with meds but it is doubtful, because as per [facility] , last time pt filled meds were in 2017 pt reported that she feels depressed and expressed thought of killing self by walking in front of the traffic, pt also reported to have command type hallucinations. pt required further evaluation and stabilization, pt was admitted under voluntary status. patient was seen today in her room, patient is withdrawn, depressed, laying in dark, tearful during the interview, patient reported that she still feels depressed and she hears voices "come on, calm on, come on" today pt refused to speak, said "leave me alone, I don't feel good". as per staff patient is self isolating, not participating in unit activities, tearful, pt eats and go back to sleep, does not take a shower. patient still grieving over the loss of her son. pt was on Invega sustenna 234mg IM, last dose September 13, next is October 11, this proposal lead writer called in for this medication to [facility] [place]. Jacquie patient tolerated medications well, no side effects observed or reported , aims 0, no EPS. Impression: Schizoaffective disorder, bipolar type Rule out adjustment disorder Medication Change: Yes (Cymbalta increased) Medical Record Reviewed: Yes Mental Status Examination - Cognitive Function Orientation: Person Memory: Impaired Attention: Poor Concentration: Poor Association: Loose Fund of Knowledge: Poor - Mood Mood: Depressed, Anxious - Affect Affect: Constricted, Flat - Formal Thought Process Formal Thought Process: Hallucinations ("come on, come on, come on"), Delusions , Paranoia, Loosening of associations - Suicidal Ideation Suicidal Ideation: No - Homicidal Ideation Homicidal Ideation: No Goal/Treatment Plan - Goal/Treatment Plan Need for Continued Stay: Remain at risks for inpatient hospitalization, Severe depression anxiety, Discharge may exacerbated symptoms, Failed transitioning, Severe functional impairment Progress Toward Problem(s) and Goals/Treatment Plan: Milieu/structure/supportive therapy Aspirin [Lo-Dose Aspirin EC] 81 mg PO DAILY Levothyroxine [Synthroid] 0.05 mg PO DAILY metFORMIN [glucOPHAGE] 500 mg PO BID Benztropine [Cogentin] 0.5 tab PO BID Donepezil HCl [Aricept] 15 mg PO DAILY Fenofibrate [Tricor] 48 mg PO DAILY LORazepam [Ativan] 0.5 mg PO TID Omeprazole Magnesium [Prilosec Otc] 20 mg PO DAILY Quetiapine Fumarate [Seroquel] 400 mg PO HS amLODIPine [Norvasc] 5 mg PO DAILY marcin bustamante [id number] October 11, called in [place] [facility] [place] cymbalta 40mg po daily for depression and anxiety medical consult appreciated consultation for discharge plan and social issues Family involvement Follow up on labs Will monitor closely Pt was educated about risk/benefits and alternatives of medications, coping strategies (safety plan, suicide prevention), relapse prevention, importance of follow up with psychiatrist and therapist, stay away from drugs/alcohol/smoking Estimated Date of D/C: 10/15/17
[2017-10-09] MEDS: Pantoprazole 20 mg EC Tab PO SCH (05:52)
--- NOTE | 2017-10-09 09:55 | PCM.PYCHPN ---
Psychiatric Progress Note - Psychiatric Progress Note Patient seen today, length of contact: 25 minutes Problems Identified/Issues Discussed: Patient is a 62 y/o female reported h/o schizophrenia, no known h/o suicidal attempts, multiple psychiatric admissions-- recent d/c from [facility] on September 13 after a 4 month stay, poor compliance with medications who was referred by [facility] and brought in by [place] [employer] after missing person report was filed because patient eloped from intake appointment on 10/05/17. Patient reported that she feels depressed and expressed thought of killing self by walking in front of the traffic, pt also reported to have command type hallucinations. I reviewed recent notes and patient was seen today in her room. Patient remains withdrawn and depressed though reports that her mood is "getting a little better ". Her affect is constricted, disengaged and preoccupied. Eye contact is poor. She is responsive with questioning though minimally communicative. Oriented to month, year and location. She denies side effects or new discomfort or pain. Patient indicates that she slept well last night. Staff notes indicate that patient has been withdrawn and isolative. She stays in her room most of the time with minimal interactions with other patients or staff. Patient continues to have intermittent bouts of anxiety. She has been compliant with medications and there have been no behavioral problems thus far. Diagnostic Results: Schizoaffective disorder, bipolar type Rule out adjustment disorder Medication Change: Yes (Cymbalta increased) Medical Record Reviewed: Yes Mental Status Examination - Cognitive Function Orientation: Person, Place Memory: Impaired Attention: Poor Concentration: Poor Association: Loose Fund of Knowledge: Poor - Mood Mood: Depressed ("a little better"), Anxious - Affect Affect: Constricted, Flat - Formal Thought Process Formal Thought Process: Hallucinations (denies at times time), Delusions, Paranoia, Loosening of associations - Suicidal Ideation Suicidal Ideation: No - Homicidal Ideation Homicidal Ideation: No Goal/Treatment Plan - Goal/Treatment Plan Need for Continued Stay: Remain at risks for inpatient hospitalization, Severe depression anxiety, Discharge may exacerbated symptoms, Failed transitioning, Severe functional impairment Progress Toward Problem(s) and Goals/Treatment Plan: * c/w current tx and plan * New weekend lab noted below: 10/09/17 07:30 POC Glucose (mg/dL) 86 * Vitals reviewed and noted below: Selected Entries 10/09/17 06:53 Temperature 97.8 F Pulse Rate 75 Respiratory 19 Rate Blood Pressure 130/82 Estimated Date of D/C: 10/15/17
--- NOTE | 2017-10-09 17:12 | PN ---
DATE: 10/09/2017 SUBJECTIVE: I saw Sena resting comfortably in bed. She tells me she is less anxious, improving slowly. She is on amoxicillin, Aricept, Ativan, Cogentin, Cymbalta, Ecotrin, Glucophage, Maalox, milk of magnesia, Norvasc, Protonix, Seroquel, Sonata, Thorazine, TriCor, and Tylenol. PHYSICAL EXAMINATION: VITAL SIGNS: Temperature 97.8, pulse 75, blood pressure 130/82, respiratory rate 19. HEENT: Head is atraumatic, normocephalic. HEART: Regular rate. LUNGS: Decreased breath sounds, but clear. ABDOMEN: Soft, obese, nontender. EXTREMITIES: Have no edema. LABORATORY DATA: She has a 5.4 white count, 14 hemoglobin, 41.2 hematocrit with a 284 platelets. She has a sodium 144, potassium is 4, BUN of 15, creatinine 0.6, GFR is greater than 60, sugar is 96, calcium is 9.5. Total bilirubin is 0.3, AST is 17, ALT is 30, alkaline phosphatase 61, total protein is 6.7. ASSESSMENT AND PLAN: She does have urinary tract infection, hypertension, diabetes, gastroesophageal reflux disease, low potassium which is better, high triglyceride, depression, auditory hallucination, suicidal ideation. We will continue as per Psychiatry in her medication adjustment. This is the first day she told me she was feeling better. Avelino Antoine DO
[2017-10-10] MEDS: Pantoprazole 20 mg EC Tab PO SCH (06:08)
--- NOTE | 2017-10-10 11:27 | PCM.PYCHPN ---
Psychiatric Progress Note - Psychiatric Progress Note Patient seen today, length of contact: 25 minutes Patient Chief Complaint: "better, anxiety is up and down" Problems Identified/Issues Discussed: Patient is a 62 y/o female reported h/o schizophrenia, no known h/o suicidal attempts, multiple psychiatric admissions-- recent d/c from [facility] on September 13 after a 4 month stay, poor compliance with medications who was referred by [facility] and brought in by [place] [employer] after missing person report was filed because patient eloped from intake appointment on 10/05/17. Patient reported that she feels depressed and expressed thought of killing self by walking in front of the traffic, pt also reported to have command type hallucinations. I reviewed recent notes and patient was seen today at bedside. Patient remains withdrawn and depressed though still reports that her mood is "getting a little better" and that she is hopeful. Anxiety is "up and down". Her affect is constricted, disengaged and preoccupied. Eye contact is a little improved today. She is responsive with questioning though minimally communicative. Oriented to month, year and location. She denies side effects or new discomfort or pain. Patient indicates that she slept well last night. Staff notes indicate that patient has been withdrawn and isolative. She stays in her room most of the time with minimal interactions with other patients or staff. Patient continues to have intermittent bouts of anxiety. She has been compliant with medications and there have been no behavioral problems thus far. Diagnostic Results: Schizoaffective disorder, bipolar type Rule out adjustment disorder Medication Change: Yes (Cymbalta increased) Medical Record Reviewed: Yes Mental Status Examination - Cognitive Function Orientation: Person, Place, Situation Memory: Impaired Attention: Poor Concentration: Poor Association: Loose Fund of Knowledge: Poor - Mood Mood: Depressed ("a little better"), Anxious - Affect Affect: Constricted, Flat - Speech Speech: Soft - Formal Thought Process Formal Thought Process: Hallucinations (denied all weekend to me), Delusions, Paranoia, Loosening of associations - Suicidal Ideation Suicidal Ideation: No - Homicidal Ideation Homicidal Ideation: No Goal/Treatment Plan - Goal/Treatment Plan Need for Continued Stay: Remain at risks for inpatient hospitalization, Severe depression anxiety, Discharge may exacerbated symptoms, Failed transitioning, Severe functional impairment Progress Toward Problem(s) and Goals/Treatment Plan: * c/w current tx and plan * Appreciate f/u by Dr. Antoine on 10/09/17~no new recommendations * New weekend lab noted below: 10/09/17 07:30 POC Glucose (mg/dL) 86 * Vitals reviewed and noted below: 10/10/17 10/10/17 07:29 09:05 Temperature 97.8 F Pulse Rate 78 78 Respiratory 20 Rate Blood Pressure 115/69 115/69 Estimated Date of D/C: 10/15/17
--- NOTE | 2017-10-10 18:01 | PN ---
DATE: 10/10/2017 SUBJECTIVE: I saw Sena resting in bed. She is feeling better. She tells me she is doing better mentally. She is on amoxicillin, Aricept, Ativan, Cogentin, Cymbalta, Ecotrin, Glucophage, Maalox, milk of magnesia, Norvasc, Protonix, Seroquel, Sonata, Thorazine, TriCor, and Tylenol. She is on and she is trying in groups. PHYSICAL EXAMINATION: VITAL SIGNS: She has a 97.8 temp, 78 pulse, 115/69 blood pressure, 20 respiratory rate. HEENT: Head is atraumatic, normocephalic. HEART: Regular rate. LUNGS: Decreased breath sounds, but clear. ABDOMEN: Soft, obese, nontender. EXTREMITIES: No edema. LABORATORY DATA: She has a5.4 white count, 14 hemoglobin and 284 platelets on the . Her last blood sugar was 85. The SMA on the , she did quite well. ASSESSMENT AND PLAN: She has urinary tract infection. She is on amoxicillin for that. We will continue with aggressive treatment and care as per Psychiatry. Encouraged her to participate, take her medications. She is here for suicidal ideation, auditory hallucinations, depression, diabetes, hypertension, low potassium, urinary tract infection and gastroesophageal reflux disease. I do think she is starting to improve. As per Psychiatry, she will follow up tomorrow. Avelino Antoine DO MTDD
[2017-10-11] MEDS: Pantoprazole 20 mg EC Tab PO SCH (08:19)
--- NOTE | 2017-10-11 10:54 | PN ---
DATE: 10/11/2017 SUBJECTIVE: I saw Sena resting comfortably in bed. She tells me she is nervous again. She is on amoxicillin, Aricept, Ativan, Cogentin, Cymbalta, Ecotrin, Glucophage, Maalox, milk of magnesia, Norvasc, Protonix, Seroquel, Thorazine, Sonata, TriCor and Tylenol. OBJECTIVE: VITAL SIGNS: Temperature 98.2, 68 pulse, 129/79 blood pressure, 20 respiratory rate. HEENT: Head is atraumatic, normocephalic. HEART: Regular rate. LUNGS: Clear to auscultation with decreased breath sounds. ABDOMEN: Soft, obese, nontender. EXTREMITIES: No edema. DATA: She had lab tests on the , CBC was good. Chemistry was good. Last blood sugar was 82. She is being seen by Psychiatry. They are adjusting medications. She has urinary tract infection, history of schizophrenia, anxiety, depression. Continue with aggressive treatment and care. Also, hallucinations, delusions and paranoia. Avelino Antoine DO
--- NOTE | 2017-10-11 16:58 | PCM.PYCHPN ---
Psychiatric Progress Note - Psychiatric Progress Note Patient seen today, length of contact: 25 minutes Patient Chief Complaint: "i feel little better" Problems Identified/Issues Discussed: Suicide/ homicide prevention, past psychiatric h/o, current psychiatric symptoms , medical problems, risk/benefits and alternatives of medications, medications compliance, coping strategies, substance abuse h/o, relapse prevention, importance of follow up with psychiatrist and therapist, discharge plan. Medical Problems: HTN Diabetes and GERD, pt has h/o UTI and delirium. He is in the interview Diagnostic Results: 10/08/17 07:00 10/08/17 07:00 Lab Results 10/08/17 11:49: POC Glucose (mg/dL) 71 10/08/17 07:20: POC Glucose (mg/dL) 88 10/08/17 07:00: Sodium 144, Potassium 4.0, Chloride 109 H, Carbon Dioxide 23, Anion Gap 16, BUN 15, Creatinine 0.6 L, Est GFR ( Amer) > 60, Est GFR ( Non-Af Amer) > 60, Random Glucose 96, Calcium 9.5, Total Bilirubin 0.3, AST 17, ALT 30, Alkaline Phosphatase 61, Total Protein 6.7, Albumin 4.1, Globulin 2.7, Albumin/Globulin Ratio 1.5 10/08/17 07:00: WBC 5.4, RBC 4.62, Hgb 14.0, Hct 41.2, MCV 89.2, MCH 30.3, MCHC 34.0, RDW 13.0, Plt Count 284, MPV 10.3 10/07/17 21:42: POC Glucose (mg/dL) 91 10/07/17 16:31: POC Glucose (mg/dL) 84 10/07/17 11:14: POC Glucose (mg/dL) 85 10/07/17 07:26: POC Glucose (mg/dL) 85 10/07/17 06:40: Sodium 145, Potassium 3.4 L, Chloride 110 H, Carbon Dioxide 24, Anion Gap 15, BUN 16, Creatinine 0.5 L, Est GFR ( Amer) > 60, Est GFR ( Non-Af Amer) > 60, Random Glucose 95, Calcium 9.0, Total Bilirubin 0.3, AST 17, ALT 29, Alkaline Phosphatase 62, Total Protein 6.5, Albumin 3.9, Globulin 2.6, Albumin/Globulin Ratio 1.5 10/07/17 06:40: WBC 4.5 D, RBC 4.72, Hgb 14.2, Hct 42.1, MCV 89.2, MCH 30.1, MCHC 33.7, RDW 13.0, Plt Count 266, MPV 10.2 10/06/17 21:24: POC Glucose (mg/dL) 91 10/06/17 16:15: POC Glucose (mg/dL) 93 10/06/17 11:04: POC Glucose (mg/dL) 82 10/06/17 08:09: POC Glucose (mg/dL) 89 10/06/17 08:00: Triglycerides 245 H, Cholesterol 219 H, LDL Cholesterol Direct 134 H, HDL Cholesterol 42 10/06/17 08:00: Free T4 1.15, TSH 3rd Generation 0.85 10/06/17 08:00: RPR Nonreactive 10/05/17 11:55: Alcohol, Quantitative < 10 10/05/17 11:55: Salicylates < 1 L, Acetaminophen < 10.0 L 10/05/17 11:55: Urine Opiates Screen Negative, Urine Methadone Screen Negative, Ur Barbiturates Screen Negative, Ur Phencyclidine Scrn Negative, Ur Amphetamines Screen Negative, U Benzodiazepines Scrn Negative, U Oth Cocaine Metabols Negative, U Cannabinoids Screen Negative 10/05/17 11:55: Sodium 146, Potassium 3.6, Chloride 108 H, Carbon Dioxide 21, Anion Gap 21 H, BUN 12, Creatinine 0.6 L, Est GFR ( Amer) > 60, Est GFR ( Non-Af Amer) > 60, Random Glucose 101, Calcium 9.9, Magnesium 1.9, Total Bilirubin 0.3, AST 23, ALT 32, Alkaline Phosphatase 82, Total Protein 7.6, Albumin 4.6, Globulin 3.0, Albumin/Globulin Ratio 1.6 10/05/17 11:55: Urine Color Yellow, Urine Appearance Clear, Urine pH 6.0, Ur Specific [place] >= 1.030, Urine Protein Trace H, Urine Glucose (UA) Negative, Urine Ketones Negative, Urine Blood Negative, Urine Nitrate Negative, Urine Bilirubin Negative, Urine Urobilinogen 0.2, Ur Leukocyte Esterase Small H, Urine RBC 1 - 3, Urine WBC 15 - 20, Ur Epithelial Cells Many, Urine Bacteria Many, Coarse Granular Casts Trace H, Urine Other Uyeast 10/05/17 11:55: WBC 9.3 D, RBC 4.95, Hgb 15.2, Hct 44.0, MCV 88.9 D, MCH 30.7 , MCHC 34.5, RDW 13.1, Plt Count 348, MPV 10.3, Gran % 79.4 H, Lymph % (Auto) 14.6 L, [place] % (Auto) 5.4, Eos % (Auto) 0.5 L, Baso % (Auto) 0.1, Gran # 7.34 H , Lymph # (Auto) 1.4, [place] # (Auto) 0.5, Eos # (Auto) 0.1, Baso # (Auto) 0.01 Vital Signs Temp Pulse Pulse Resp BP Pulse Ox 10/08/17 08:42 83 108/73 10/08/17 07:17 98.1 F 83 20 108/73 10/07/17 16:00 109 H 137/76 10/07/17 09:06 955 H 117/65 10/07/17 07:14 97.0 F L 95 H 18 117/67 10/06/17 16:00 104 H 136/97 H 10/06/17 08:58 70 130/78 10/06/17 06:49 98.0 F 70 20 130/78 10/05/17 17:02 84 16 10/05/17 16:18 100 10/05/17 16:10 72 18 121/80 100 10/05/17 15:12 74 18 126/82 99 10/05/17 13:32 68 16 119/80 99 10/05/17 12:10 98.4 F 75 18 117/78 100 DSM 5 Symptoms Update: Shortly, pt is a 62 y/o female reported h/o schizophrenia, not known h/o suicidal attempts, was referred by [facility] and brought in by [place] [employer] after missing person report after eloping from intake appointment 10/05/17 , recent d/c from [facility] on September 13 after a 4 month stay, pt reported being on Invega Sustenna last dose was September 13 234mg IM, pt reported to be compliant with meds but it is doubtful, because as per [facility] , last time pt filled meds were in 2017 pt reported that she feels depressed and expressed thought of killing self by walking in front of the traffic, pt also reported to have command type hallucinations. pt required further evaluation and stabilization, pt was admitted under voluntary status. patient was seen in the office, pt still depressed and withdrawn, but more visible in the unit. pt c/o anxiety, denied any psychosis, pt is aware about Invega injection tody. as per staff patient is self isolating, not participating in unit activities, tearful, pt eats and go back to sleep, does not take a shower. patient still grieving over the loss of her son. pt was on Invega sustenna 234mg IM, last dose September 13, next is October 11. So far patient tolerated medications well, no side effects observed or reported , aims 0, no EPS. Impression: Schizoaffective disorder, bipolar type Rule out adjustment disorder Medication Change: Yes (Cymbalta increased, invega sustenna) Medical Record Reviewed: Yes Consults ordered or reviewed: patient was seen by medical team, please see consultation also more detailed information Mental Status Examination - Cognitive Function Orientation: Person, Place, Situation Memory: Impaired Attention: Poor Concentration: Poor Association: Loose Fund of Knowledge: Poor - Mood Mood: Depressed ("a little better"), Anxious - Affect Affect: Constricted, Flat - Speech Speech: Soft - Formal Thought Process Formal Thought Process: Hallucinations (denied all weekend to me), Delusions, Paranoia, Loosening of associations - Suicidal Ideation Suicidal Ideation: No - Homicidal Ideation Homicidal Ideation: No Goal/Treatment Plan - Goal/Treatment Plan Need for Continued Stay: Remain at risks for inpatient hospitalization, Severe depression anxiety, Discharge may exacerbated symptoms, Failed transitioning, Severe functional impairment Progress Toward Problem(s) and Goals/Treatment Plan: Milieu/structure/supportive therapy Aspirin [Lo-Dose Aspirin EC] 81 mg PO DAILY Levothyroxine [Synthroid] 0.05 mg PO DAILY metFORMIN [glucOPHAGE] 500 mg PO BID Benztropine [Cogentin] 0.5 tab PO BID Donepezil HCl [Aricept] 15 mg PO DAILY Fenofibrate [Tricor] 48 mg PO DAILY LORazepam [Ativan] 0.5 mg PO TID Omeprazole Magnesium [Prilosec Otc] 20 mg PO DAILY Quetiapine Fumarate [Seroquel] 400 mg PO HS amLODIPine [Norvasc] 5 mg PO DAILY marcin bustamante [id number] October 11 cymbalta 60mg po daily for depression and anxiety medical consult appreciated consultation for discharge plan and social issues Family involvement Follow up on labs Will monitor closely Pt was educated about risk/benefits and alternatives of medications, coping strategies (safety plan, suicide prevention), relapse prevention, importance of follow up with psychiatrist and therapist, stay away from drugs/alcohol/smoking Estimated Date of D/C: 10/15/17
[2017-10-12] MEDS: Pantoprazole 20 mg EC Tab PO SCH (06:18)
--- NOTE | 2017-10-12 09:57 | PN ---
DATE: 10/12/2017 SUBJECTIVE: I saw Sena resting comfortably, actually eating breakfast. She is doing quite well this morning. She is talking. She is in good spirits. She has no complaints. She tells me she might be being discharged soon. She is on amoxicillin for the UTI, Aricept, Ativan, Cogentin, Cymbalta, Ecotrin, Glucophage, Maalox, milk of magnesia, Norvasc, Protonix, Seroquel, Sonata, Thorazine, TriCor, Tylenol. PHYSICAL EXAMINATION: VITAL SIGNS: She has a 97.8 temp, 71 pulse, 112/76 blood pressure, 20 respiratory rate. She tells me she is not anxious this morning. HEENT: Head is atraumatic, normocephalic. HEART: Regular rate. LUNGS: Clear to auscultation. ABDOMEN: Soft, obese, nontender. EXTREMITIES: No edema. LABORATORY DATA: She has a normal CBC on 10/08/2017. Last blood sugar was 81. ASSESSMENT AND PLAN: She is here for suicidal ideation, auditory hallucination, depression, diabetes, hypertension, urinary tract infection, gastroesophageal reflux disease and low potassium. I do think she is improving as per Psychiatry. Continue with adjustment of medication. We will follow medically. Thank you very much. Avelino Antoine DO
--- NOTE | 2017-10-12 16:03 | PCM.PYCHPN ---
Psychiatric Progress Note - Psychiatric Progress Note Patient seen today, length of contact: 30min Patient Chief Complaint: "my mood is bad" Problems Identified/Issues Discussed: Suicide/ homicide prevention, past psychiatric h/o, current psychiatric symptoms , medical problems, risk/benefits and alternatives of medications, medications compliance, coping strategies, substance abuse h/o, relapse prevention, importance of follow up with psychiatrist and therapist, discharge plan. Medical Problems: HTN Diabetes and GERD, pt has h/o UTI and delirium. He is in the interview Diagnostic Results: 10/08/17 07:00 10/08/17 07:00 Lab Results 10/08/17 11:49: POC Glucose (mg/dL) 71 10/08/17 07:20: POC Glucose (mg/dL) 88 10/08/17 07:00: Sodium 144, Potassium 4.0, Chloride 109 H, Carbon Dioxide 23, Anion Gap 16, BUN 15, Creatinine 0.6 L, Est GFR ( Amer) > 60, Est GFR ( Non-Af Amer) > 60, Random Glucose 96, Calcium 9.5, Total Bilirubin 0.3, AST 17, ALT 30, Alkaline Phosphatase 61, Total Protein 6.7, Albumin 4.1, Globulin 2.7, Albumin/Globulin Ratio 1.5 10/08/17 07:00: WBC 5.4, RBC 4.62, Hgb 14.0, Hct 41.2, MCV 89.2, MCH 30.3, MCHC 34.0, RDW 13.0, Plt Count 284, MPV 10.3 10/07/17 21:42: POC Glucose (mg/dL) 91 10/07/17 16:31: POC Glucose (mg/dL) 84 10/07/17 11:14: POC Glucose (mg/dL) 85 10/07/17 07:26: POC Glucose (mg/dL) 85 10/07/17 06:40: Sodium 145, Potassium 3.4 L, Chloride 110 H, Carbon Dioxide 24, Anion Gap 15, BUN 16, Creatinine 0.5 L, Est GFR ( Amer) > 60, Est GFR ( Non-Af Amer) > 60, Random Glucose 95, Calcium 9.0, Total Bilirubin 0.3, AST 17, ALT 29, Alkaline Phosphatase 62, Total Protein 6.5, Albumin 3.9, Globulin 2.6, Albumin/Globulin Ratio 1.5 10/07/17 06:40: WBC 4.5 D, RBC 4.72, Hgb 14.2, Hct 42.1, MCV 89.2, MCH 30.1, MCHC 33.7, RDW 13.0, Plt Count 266, MPV 10.2 10/06/17 21:24: POC Glucose (mg/dL) 91 10/06/17 16:15: POC Glucose (mg/dL) 93 10/06/17 11:04: POC Glucose (mg/dL) 82 10/06/17 08:09: POC Glucose (mg/dL) 89 10/06/17 08:00: Triglycerides 245 H, Cholesterol 219 H, LDL Cholesterol Direct 134 H, HDL Cholesterol 42 10/06/17 08:00: Free T4 1.15, TSH 3rd Generation 0.85 10/06/17 08:00: RPR Nonreactive 10/05/17 11:55: Alcohol, Quantitative < 10 10/05/17 11:55: Salicylates < 1 L, Acetaminophen < 10.0 L 10/05/17 11:55: Urine Opiates Screen Negative, Urine Methadone Screen Negative, Ur Barbiturates Screen Negative, Ur Phencyclidine Scrn Negative, Ur Amphetamines Screen Negative, U Benzodiazepines Scrn Negative, U Oth Cocaine Metabols Negative, U Cannabinoids Screen Negative 10/05/17 11:55: Sodium 146, Potassium 3.6, Chloride 108 H, Carbon Dioxide 21, Anion Gap 21 H, BUN 12, Creatinine 0.6 L, Est GFR ( Amer) > 60, Est GFR ( Non-Af Amer) > 60, Random Glucose 101, Calcium 9.9, Magnesium 1.9, Total Bilirubin 0.3, AST 23, ALT 32, Alkaline Phosphatase 82, Total Protein 7.6, Albumin 4.6, Globulin 3.0, Albumin/Globulin Ratio 1.6 10/05/17 11:55: Urine Color Yellow, Urine Appearance Clear, Urine pH 6.0, Ur Specific [place] >= 1.030, Urine Protein Trace H, Urine Glucose (UA) Negative, Urine Ketones Negative, Urine Blood Negative, Urine Nitrate Negative, Urine Bilirubin Negative, Urine Urobilinogen 0.2, Ur Leukocyte Esterase Small H, Urine RBC 1 - 3, Urine WBC 15 - 20, Ur Epithelial Cells Many, Urine Bacteria Many, Coarse Granular Casts Trace H, Urine Other Uyeast 10/05/17 11:55: WBC 9.3 D, RBC 4.95, Hgb 15.2, Hct 44.0, MCV 88.9 D, MCH 30.7 , MCHC 34.5, RDW 13.1, Plt Count 348, MPV 10.3, Gran % 79.4 H, Lymph % (Auto) 14.6 L, [place] % (Auto) 5.4, Eos % (Auto) 0.5 L, Baso % (Auto) 0.1, Gran # 7.34 H , Lymph # (Auto) 1.4, [place] # (Auto) 0.5, Eos # (Auto) 0.1, Baso # (Auto) 0.01 Vital Signs Temp Pulse Pulse Resp BP Pulse Ox 10/08/17 08:42 83 108/73 10/08/17 07:17 98.1 F 83 20 108/73 10/07/17 16:00 109 H 137/76 10/07/17 09:06 955 H 117/65 10/07/17 07:14 97.0 F L 95 H 18 117/67 10/06/17 16:00 104 H 136/97 H 10/06/17 08:58 70 130/78 10/06/17 06:49 98.0 F 70 20 130/78 10/05/17 17:02 84 16 10/05/17 16:18 100 10/05/17 16:10 72 18 121/80 100 10/05/17 15:12 74 18 126/82 99 10/05/17 13:32 68 16 119/80 99 10/05/17 12:10 98.4 F 75 18 117/78 100 DSM 5 Symptoms Update: Shortly, pt is a 62 y/o female reported h/o schizophrenia, not known h/o suicidal attempts, was referred by [facility] and brought in by [place] [employer] after missing person report after eloping from intake appointment 10/05/17 , recent d/c from [facility] on September 13 after a 4 month stay, pt reported being on Invega Sustenna last dose was September 13 234mg IM, pt reported to be compliant with meds but it is doubtful, because as per [facility] , last time pt filled meds were in 2017 pt reported that she feels depressed and expressed thought of killing self by walking in front of the traffic, pt also reported to have command type hallucinations. pt required further evaluation and stabilization, pt was admitted under voluntary status. patient was seen Nursing station, patient appears to be depressed, withdrawn patient had injection of Invega yesterday, Cymbalta was increased yesterday. as per staff patient is self isolating, not participating in unit activities, tearful, pt eats and go back to sleep, does not take a shower. patient still grieving over the loss of her son. pt was on Invega sustenna 234mg IM, last dose October 11. So far patient tolerated medications well, no side effects observed or reported , aims 0, no EPS. Impression: Schizoaffective disorder, bipolar type Rule out adjustment disorder Medication Change: Yes (Cymbalta increased, invega sustenna 10/11/17) Medical Record Reviewed: Yes Mental Status Examination - Cognitive Function Orientation: Person, Place, Situation Memory: Impaired Attention: Poor Concentration: Poor Association: Loose Fund of Knowledge: Poor - Mood Mood: Depressed ("a little better"), Anxious - Affect Affect: Constricted, Flat - Speech Speech: Soft - Formal Thought Process Formal Thought Process: Hallucinations (denied all weekend to me), Delusions, Paranoia, Loosening of associations - Suicidal Ideation Suicidal Ideation: No - Homicidal Ideation Homicidal Ideation: No Goal/Treatment Plan - Goal/Treatment Plan Need for Continued Stay: Remain at risks for inpatient hospitalization, Severe depression anxiety, Discharge may exacerbated symptoms, Failed transitioning, Severe functional impairment Progress Toward Problem(s) and Goals/Treatment Plan: Milieu/structure/supportive therapy Aspirin [Lo-Dose Aspirin EC] 81 mg PO DAILY Levothyroxine [Synthroid] 0.05 mg PO DAILY metFORMIN [glucOPHAGE] 500 mg PO BID Benztropine [Cogentin] 0.5 tab PO BID Donepezil HCl [Aricept] 15 mg PO DAILY Fenofibrate [Tricor] 48 mg PO DAILY LORazepam [Ativan] 1mg PO TID Omeprazole Magnesium [Prilosec Otc] 20 mg PO DAILY Quetiapine Fumarate [Seroquel] 400 mg PO HS amLODIPine [Norvasc] 5 mg PO DAILY invega susstenna [id number] October 11 cymbalta 60mg po daily for depression and anxiety medical consult appreciated consultation for discharge plan and social issues Family involvement Follow up on labs Will monitor closely Pt was educated about risk/benefits and alternatives of medications, coping strategies (safety plan, suicide prevention), relapse prevention, importance of follow up with psychiatrist and therapist, stay away from drugs/alcohol/smoking Estimated Date of D/C: 10/15/17
[2017-10-13] MEDS: Pantoprazole 20 mg EC Tab PO SCH (07:21)
--- NOTE | 2017-10-13 10:34 | PCM.BM ---
<Christopher Portillo - Last Filed: 10/13/17 10:33> Treatment Plan Problems - Problems identified on initial assessmt INEFFECTIVE COPING SKILLS Date Initiated: 10/05/17 Time Initiated: 20:00 Assessment reference: NA Status: Active Priority: 1 ALTEREED SLEEP Date Initiated: 10/05/17 Time Initiated: 20:00 Assessment reference: NA Status: Active Priority: 2 HOPELESS/HE;PLESS Date Initiated: 10/05/17 Time Initiated: 20:00 Assessment reference: NA Status: Active Priority: 3 MEDICATION NON ADHERENCE Date Initiated: 10/05/17 Time Initiated: 20:00 Assessment reference: NA Status: Active Priority: 4 Treatment assets and liabiliti Patient Assests: cooperative, educated, self-reliant, ADL independent, negotiates basic needs, cognitively intact Patient Liabilities: medical problems - Milieu Protocol Maintain good personal hygiene: daily Encourage regular showers, daily Remind patient to perform daily oral care, daily Assist patient to perform ADL's Maintain personal safety: every shift Educate patient to report safety concerns to staff, every shift Monitor environment for contraband/sharps Medication safety: Monitor for expected outcome, potential side effects: every shift, Assess barriers to learning: every shift, Assess readiness for medication education: every shift Milieu Narrative: Milieu/structure/supportive therapy Aspirin [Lo-Dose Aspirin EC] 81 mg PO DAILY Levothyroxine [Synthroid] 0.05 mg PO DAILY metFORMIN [glucOPHAGE] 500 mg PO BID Benztropine [Cogentin] 0.5 tab PO BID Donepezil HCl [Aricept] 15 mg PO DAILY Fenofibrate [Tricor] 48 mg PO DAILY LORazepam [Ativan] 1mg PO TID Omeprazole Magnesium [Prilosec Otc] 20 mg PO DAILY Quetiapine Fumarate [Seroquel] 400 mg PO HS amLODIPine [Norvasc] 5 mg PO DAILY marcin bustamante [id number] October 11 cymbalta 60mg po daily for depression and anxiety medical consult appreciated consultation for discharge plan and social issues Family involvement Follow up on labs Will monitor closely Pt was educated about risk/benefits and alternatives of medications, coping strategies (safety plan, suicide prevention), relapse prevention, importance of follow up with psychiatrist and therapist, stay away from drugs/alcohol/smoking Family Contact Family involvement: Famliy/SO not involved - Outside Agency [facility] Care involvment: Information-sharing Agency contact name: [facility] Agency contact number: [phone] Discharge/Continuing Care - Education Needs Education Needs: Patient Medication, Patient Diagnosis/Disease Process, Patient Coping Skills, Patient Placement options, Patient Community resources, Patient Activities of Daily Living, Patient Health Practices/Safety, Patient Personal Hygiene/Grooming, Patient Aftercare Safety Plan - Discharge Discharge Criteria: Tolerates medication w/o severe side effects, Free of Suicidal thoughts, Free of agitation, Normal sleep pattern, Ability to care for self, Reduction of target symptoms Discharge to:: Home - Treatment Team Participation Patient/Family/SO Statement: Milieu/structure/supportive therapy Aspirin [Lo-Dose Aspirin EC] 81 mg PO DAILY Levothyroxine [Synthroid] 0.05 mg PO DAILY metFORMIN [glucOPHAGE] 500 mg PO BID Benztropine [Cogentin] 0.5 tab PO BID Donepezil HCl [Aricept] 15 mg PO DAILY Fenofibrate [Tricor] 48 mg PO DAILY LORazepam [Ativan] 1mg PO TID Omeprazole Magnesium [Prilosec Otc] 20 mg PO DAILY Quetiapine Fumarate [Seroquel] 400 mg PO HS amLODIPine [Norvasc] 5 mg PO DAILY invega dianna [id number] October 11 cymbalta 60mg po daily for depression and anxiety medical consult appreciated consultation for discharge plan and social issues Family involvement Follow up on labs Will monitor closely Pt was educated about risk/benefits and alternatives of medications, coping strategies (safety plan, suicide prevention), relapse prevention, importance of follow up with psychiatrist and therapist, stay away from drugs/alcohol/smoking Treatment Plan Review - Problem INEFFECTIVE COPING SKILLS Time Initiated: 20:00 ALTEREED SLEEP Time Initiated: 20:00 HOPELESS/HE;PLESS Time Initiated: 20:00 MEDICATION NON ADHERENCE Time Initiated: 20:00 <Ewa More - Last Filed: 10/13/17 14:51> - Diagnosis (1) Schizophrenia Status: Acute Interventions: 10/13/17 14:51 Patient improving Less psychotic Patient got injection Tolerated medications well, no agitation no aggression <Olya Bui - Last Filed: 10/13/17 16:59> Family Contact - Outside Agency [facility] Care involvment: Information-sharing
--- NOTE | 2017-10-13 12:14 | PN ---
DATE: 10/13/2017 SUBJECTIVE: I saw her resting comfortably in bed this morning, great She tells me she is still anxious from time to time. She is on amoxicillin for UTI, Aricept, Ativan, Cogentin, Cymbalta, Ecotrin, Glucophage, diabetes, Maalox, milk of magnesia, Norvasc for hypertension, Protonix for GERD, Seroquel, Sonata, Thorazine, TriCor for high triglycerides and Tylenol. PHYSICAL EXAMINATION: VITAL SIGNS: Temperature 97.2, pulse 88, blood pressure 117/79, respiratory rate 20. HEENT: Head is atraumatic, normocephalic. HEART: Regular rate. LUNGS: Clear to auscultation. ABDOMEN: Soft, obese, nontender. EXTREMITIES: No edema. ASSESSMENT AND PLAN: She is here for suicidal ideation auditory hallucinations, depression, anxiety, high triglycerides, diabetes, hypertension, urinary tract infection, gastroesophageal reflux disease, diabetes and low potassium. Last labs on 10/08/2017 and she did well. Last blood sugar was 95. As per Psychiatry, continue with aggressive treatment and care and medication adjustments and we will follow. I encouraged her to participate, take her medications, eat well. Avelino Antoine DO EL
--- NOTE | 2017-10-13 15:04 | PCM.PYCHPN ---
Psychiatric Progress Note - Psychiatric Progress Note Patient seen today, length of contact: 30min Patient Chief Complaint: "I am okay" Problems Identified/Issues Discussed: Suicide/ homicide prevention, past psychiatric h/o, current psychiatric symptoms , medical problems, risk/benefits and alternatives of medications, medications compliance, coping strategies, substance abuse h/o, relapse prevention, importance of follow up with psychiatrist and therapist, discharge plan. Medical Problems: HTN Diabetes and GERD, pt has h/o UTI and delirium. He is in the interview Diagnostic Results: 10/08/17 07:00 10/08/17 07:00 Lab Results 10/08/17 11:49: POC Glucose (mg/dL) 71 10/08/17 07:20: POC Glucose (mg/dL) 88 10/08/17 07:00: Sodium 144, Potassium 4.0, Chloride 109 H, Carbon Dioxide 23, Anion Gap 16, BUN 15, Creatinine 0.6 L, Est GFR ( Amer) > 60, Est GFR ( Non-Af Amer) > 60, Random Glucose 96, Calcium 9.5, Total Bilirubin 0.3, AST 17, ALT 30, Alkaline Phosphatase 61, Total Protein 6.7, Albumin 4.1, Globulin 2.7, Albumin/Globulin Ratio 1.5 10/08/17 07:00: WBC 5.4, RBC 4.62, Hgb 14.0, Hct 41.2, MCV 89.2, MCH 30.3, MCHC 34.0, RDW 13.0, Plt Count 284, MPV 10.3 10/07/17 21:42: POC Glucose (mg/dL) 91 10/07/17 16:31: POC Glucose (mg/dL) 84 10/07/17 11:14: POC Glucose (mg/dL) 85 10/07/17 07:26: POC Glucose (mg/dL) 85 10/07/17 06:40: Sodium 145, Potassium 3.4 L, Chloride 110 H, Carbon Dioxide 24, Anion Gap 15, BUN 16, Creatinine 0.5 L, Est GFR ( Amer) > 60, Est GFR ( Non-Af Amer) > 60, Random Glucose 95, Calcium 9.0, Total Bilirubin 0.3, AST 17, ALT 29, Alkaline Phosphatase 62, Total Protein 6.5, Albumin 3.9, Globulin 2.6, Albumin/Globulin Ratio 1.5 10/07/17 06:40: WBC 4.5 D, RBC 4.72, Hgb 14.2, Hct 42.1, MCV 89.2, MCH 30.1, MCHC 33.7, RDW 13.0, Plt Count 266, MPV 10.2 10/06/17 21:24: POC Glucose (mg/dL) 91 10/06/17 16:15: POC Glucose (mg/dL) 93 10/06/17 11:04: POC Glucose (mg/dL) 82 10/06/17 08:09: POC Glucose (mg/dL) 89 10/06/17 08:00: Triglycerides 245 H, Cholesterol 219 H, LDL Cholesterol Direct 134 H, HDL Cholesterol 42 10/06/17 08:00: Free T4 1.15, TSH 3rd Generation 0.85 10/06/17 08:00: RPR Nonreactive 10/05/17 11:55: Alcohol, Quantitative < 10 10/05/17 11:55: Salicylates < 1 L, Acetaminophen < 10.0 L 10/05/17 11:55: Urine Opiates Screen Negative, Urine Methadone Screen Negative, Ur Barbiturates Screen Negative, Ur Phencyclidine Scrn Negative, Ur Amphetamines Screen Negative, U Benzodiazepines Scrn Negative, U Oth Cocaine Metabols Negative, U Cannabinoids Screen Negative 10/05/17 11:55: Sodium 146, Potassium 3.6, Chloride 108 H, Carbon Dioxide 21, Anion Gap 21 H, BUN 12, Creatinine 0.6 L, Est GFR ( Amer) > 60, Est GFR ( Non-Af Amer) > 60, Random Glucose 101, Calcium 9.9, Magnesium 1.9, Total Bilirubin 0.3, AST 23, ALT 32, Alkaline Phosphatase 82, Total Protein 7.6, Albumin 4.6, Globulin 3.0, Albumin/Globulin Ratio 1.6 10/05/17 11:55: Urine Color Yellow, Urine Appearance Clear, Urine pH 6.0, Ur Specific [place] >= 1.030, Urine Protein Trace H, Urine Glucose (UA) Negative, Urine Ketones Negative, Urine Blood Negative, Urine Nitrate Negative, Urine Bilirubin Negative, Urine Urobilinogen 0.2, Ur Leukocyte Esterase Small H, Urine RBC 1 - 3, Urine WBC 15 - 20, Ur Epithelial Cells Many, Urine Bacteria Many, Coarse Granular Casts Trace H, Urine Other [place]yeast 10/05/17 11:55: WBC 9.3 D, RBC 4.95, Hgb 15.2, Hct 44.0, MCV 88.9 D, MCH 30.7 , MCHC 34.5, RDW 13.1, Plt Count 348, MPV 10.3, Gran % 79.4 H, Lymph % (Auto) 14.6 L, [place] % (Auto) 5.4, Eos % (Auto) 0.5 L, Baso % (Auto) 0.1, Gran # 7.34 H , Lymph # (Auto) 1.4, [place] # (Auto) 0.5, Eos # (Auto) 0.1, Baso # (Auto) 0.01 Vital Signs Temp Pulse Pulse Resp BP Pulse Ox 10/08/17 08:42 83 108/73 10/08/17 07:17 98.1 F 83 20 108/73 10/07/17 16:00 109 H 137/76 10/07/17 09:06 955 H 117/65 10/07/17 07:14 97.0 F L 95 H 18 117/67 10/06/17 16:00 104 H 136/97 H 10/06/17 08:58 70 130/78 10/06/17 06:49 98.0 F 70 20 130/78 10/05/17 17:02 84 16 10/05/17 16:18 100 10/05/17 16:10 72 18 121/80 100 10/05/17 15:12 74 18 126/82 99 10/05/17 13:32 68 16 119/80 99 10/05/17 12:10 98.4 F 75 18 117/78 100 DSM 5 Symptoms Update: Shortly, pt is a 62 y/o female reported h/o schizophrenia, not known h/o suicidal attempts, [place] [facility] [place] [employer] after missing person report after eloping from intake appointment 10/05/17 , recent d/c from [facility] on September 13 after a 4 month stay, pt reported being on Invega Sustenna last dose was September 13 234mg IM, pt reported to be compliant with meds but it is doubtful, because as per [facility] , last time pt filled meds were in 2017 pt reported that she feels depressed and expressed thought of killing self by walking in front of the traffic, pt also reported to have command type hallucinations. pt required further evaluation and stabilization, pt was admitted under voluntary status. patient was seen at the treatment team meeting, patient appears to be depressed , but mild improvement with her affect, patient smiled couple of times, as per staff patient is trying her best to attend groups, but appears to be depressed and leaving groups within couple of minutes. patient still grieving over the loss of her son. Patient denied any voices, does not appear to be paranoid, but withdrawn pt was on Invega sustenna 234mg IM, last dose October 11. So far patient tolerated medications well, no side effects observed or reported , aims 0, no EPS. Impression: Schizoaffective disorder, bipolar type Rule out adjustment disorder Medication Change: Yes (Cymbalta increased, invega sustenna 10/11/17) Medical Record Reviewed: Yes Consults ordered or reviewed: patient was seen by medical team, please see consultation also more detailed information Mental Status Examination - Cognitive Function Orientation: Person, Place, Situation Memory: Impaired Attention: Poor (some improvement) Concentration: Poor (some improvement) Association: Loose Fund of Knowledge: Poor - Mood Mood: Depressed ("a little better"), Anxious - Affect Affect: Constricted, Flat - Speech Speech: Soft - Formal Thought Process Formal Thought Process: Hallucinations (deneid) - Suicidal Ideation Suicidal Ideation: No - Homicidal Ideation Homicidal Ideation: No Goal/Treatment Plan - Goal/Treatment Plan Need for Continued Stay: Remain at risks for inpatient hospitalization, Severe depression anxiety, Discharge may exacerbated symptoms, Failed transitioning, Severe functional impairment Progress Toward Problem(s) and Goals/Treatment Plan: Milieu/structure/supportive therapy Aspirin [Lo-Dose Aspirin EC] 81 mg PO DAILY Levothyroxine [Synthroid] 0.05 mg PO DAILY metFORMIN [glucOPHAGE] 500 mg PO BID Benztropine [Cogentin] 0.5 tab PO BID Donepezil HCl [Aricept] 15 mg PO DAILY Fenofibrate [Tricor] 48 mg PO DAILY LORazepam [Ativan] 1mg PO TID Omeprazole Magnesium [Prilosec Otc] 20 mg PO DAILY Quetiapine Fumarate [Seroquel] 400 mg PO HS amLODIPine [Norvasc] 5 mg PO DAILY maricn bustamante [id number] October 11 cymbalta 60mg po daily for depression and anxiety medical consult appreciated consultation for discharge plan and social issues Family involvement Follow up on labs Will monitor closely Pt was educated about risk/benefits and alternatives of medications, coping strategies (safety plan, suicide prevention), relapse prevention, importance of follow up with psychiatrist and therapist, stay away from drugs/alcohol/smoking Estimated Date of D/C: 10/15/17
[2017-10-14] MEDS: Pantoprazole 20 mg EC Tab PO SCH (05:30)
--- NOTE | 2017-10-14 09:40 | PN ---
DATE: 10/14/2017 SUBJECTIVE: I saw Sena resting comfortably. She is eating her breakfast. She is doing well. She is feeling better. She is on amoxicillin, Aricept, Ativan, Cogentin, Cymbalta, Ecotrin, Glucophage, Maalox, milk of magnesia, Norvasc, Protonix, Seroquel, Sonata, Thorazine, TriCor and Tylenol. She is talking to me about going home soon and she is excited about that. She tells me she is feeling better, although at times she has anxiety. PHYSICAL EXAMINATION: VITAL SIGNS: She has a 97.5 temp; 94 pulse; 134/91 blood pressure, a little up, we will keep an eye on that; 18 respiratory rate. HEENT: Head is atraumatic, normocephalic. HEART: Regular rate. LUNGS: Clear to auscultation. ABDOMEN: Soft. EXTREMITIES: No edema. LABORATORY DATA: Last labs, she had an 83 blood sugar. ASSESSMENT AND PLAN: She is on Norvasc 5 mg. If the blood pressure persists, I might increase it to 10. Actually, I am going to increase it to 10 because she has been on 10 in the past. I think now that she is doing more in the Psychiatric floor, I will increase it to 10 because the blood pressure starting to elevate. I will increase the Norvasc to 10, but as per Psychiatry on discharge and we will continue to watch. Avelino Antoine DO MTDD
--- NOTE | 2017-10-14 15:22 | PCM.PYCHPN ---
Psychiatric Progress Note - Psychiatric Progress Note Patient seen today, length of contact: 30min Patient Chief Complaint: "I feel better, I'm okay" Problems Identified/Issues Discussed: Suicide/ homicide prevention, past psychiatric h/o, current psychiatric symptoms , medical problems, risk/benefits and alternatives of medications, medications compliance, coping strategies, substance abuse h/o, relapse prevention, importance of follow up with psychiatrist and therapist, discharge plan. Medical Problems: HTN Diabetes and GERD, pt has h/o UTI and delirium. He is in the interview Diagnostic Results: 10/08/17 07:00 10/08/17 07:00 Lab Results 10/08/17 11:49: POC Glucose (mg/dL) 71 10/08/17 07:20: POC Glucose (mg/dL) 88 10/08/17 07:00: Sodium 144, Potassium 4.0, Chloride 109 H, Carbon Dioxide 23, Anion Gap 16, BUN 15, Creatinine 0.6 L, Est GFR ( Amer) > 60, Est GFR ( Non-Af Amer) > 60, Random Glucose 96, Calcium 9.5, Total Bilirubin 0.3, AST 17, ALT 30, Alkaline Phosphatase 61, Total Protein 6.7, Albumin 4.1, Globulin 2.7, Albumin/Globulin Ratio 1.5 10/08/17 07:00: WBC 5.4, RBC 4.62, Hgb 14.0, Hct 41.2, MCV 89.2, MCH 30.3, MCHC 34.0, RDW 13.0, Plt Count 284, MPV 10.3 10/07/17 21:42: POC Glucose (mg/dL) 91 10/07/17 16:31: POC Glucose (mg/dL) 84 10/07/17 11:14: POC Glucose (mg/dL) 85 10/07/17 07:26: POC Glucose (mg/dL) 85 10/07/17 06:40: Sodium 145, Potassium 3.4 L, Chloride 110 H, Carbon Dioxide 24, Anion Gap 15, BUN 16, Creatinine 0.5 L, Est GFR ( Amer) > 60, Est GFR ( Non-Af Amer) > 60, Random Glucose 95, Calcium 9.0, Total Bilirubin 0.3, AST 17, ALT 29, Alkaline Phosphatase 62, Total Protein 6.5, Albumin 3.9, Globulin 2.6, Albumin/Globulin Ratio 1.5 10/07/17 06:40: WBC 4.5 D, RBC 4.72, Hgb 14.2, Hct 42.1, MCV 89.2, MCH 30.1, MCHC 33.7, RDW 13.0, Plt Count 266, MPV 10.2 10/06/17 21:24: POC Glucose (mg/dL) 91 10/06/17 16:15: POC Glucose (mg/dL) 93 10/06/17 11:04: POC Glucose (mg/dL) 82 10/06/17 08:09: POC Glucose (mg/dL) 89 10/06/17 08:00: Triglycerides 245 H, Cholesterol 219 H, LDL Cholesterol Direct 134 H, HDL Cholesterol 42 10/06/17 08:00: Free T4 1.15, TSH 3rd Generation 0.85 10/06/17 08:00: RPR Nonreactive 10/05/17 11:55: Alcohol, Quantitative < 10 10/05/17 11:55: Salicylates < 1 L, Acetaminophen < 10.0 L 10/05/17 11:55: Urine Opiates Screen Negative, Urine Methadone Screen Negative, Ur Barbiturates Screen Negative, Ur Phencyclidine Scrn Negative, Ur Amphetamines Screen Negative, U Benzodiazepines Scrn Negative, U Oth Cocaine Metabols Negative, U Cannabinoids Screen Negative 10/05/17 11:55: Sodium 146, Potassium 3.6, Chloride 108 H, Carbon Dioxide 21, Anion Gap 21 H, BUN 12, Creatinine 0.6 L, Est GFR ( Amer) > 60, Est GFR ( Non-Af Amer) > 60, Random Glucose 101, Calcium 9.9, Magnesium 1.9, Total Bilirubin 0.3, AST 23, ALT 32, Alkaline Phosphatase 82, Total Protein 7.6, Albumin 4.6, Globulin 3.0, Albumin/Globulin Ratio 1.6 10/05/17 11:55: Urine Color Yellow, Urine Appearance Clear, Urine pH 6.0, Ur Specific [place] >= 1.030, Urine Protein Trace H, Urine Glucose (UA) Negative, Urine Ketones Negative, Urine Blood Negative, Urine Nitrate Negative, Urine Bilirubin Negative, Urine Urobilinogen 0.2, Ur Leukocyte Esterase Small H, Urine RBC 1 - 3, Urine WBC 15 - 20, Ur Epithelial Cells Many, Urine Bacteria Many, Coarse Granular Casts Trace H, Urine Other Uyeast 10/05/17 11:55: WBC 9.3 D, RBC 4.95, Hgb 15.2, Hct 44.0, MCV 88.9 D, MCH 30.7 , MCHC 34.5, RDW 13.1, Plt Count 348, MPV 10.3, Gran % 79.4 H, Lymph % (Auto) 14.6 L, [place] % (Auto) 5.4, Eos % (Auto) 0.5 L, Baso % (Auto) 0.1, Gran # 7.34 H , Lymph # (Auto) 1.4, [place] # (Auto) 0.5, Eos # (Auto) 0.1, Baso # (Auto) 0.01 Vital Signs Temp Pulse Pulse Resp BP Pulse Ox 10/08/17 08:42 83 108/73 10/08/17 07:17 98.1 F 83 20 108/73 10/07/17 16:00 109 H 137/76 10/07/17 09:06 955 H 117/65 10/07/17 07:14 97.0 F L 95 H 18 117/67 10/06/17 16:00 104 H 136/97 H 10/06/17 08:58 70 130/78 10/06/17 06:49 98.0 F 70 20 130/78 10/05/17 17:02 84 16 10/05/17 16:18 100 10/05/17 16:10 72 18 121/80 100 10/05/17 15:12 74 18 126/82 99 10/05/17 13:32 68 16 119/80 99 10/05/17 12:10 98.4 F 75 18 117/78 100 DSM 5 Symptoms Update: Shortly, pt is a 62 y/o female reported h/o schizophrenia, not known h/o suicidal attempts, [place] [facility] [place] [employer] after missing person report after eloping from intake appointment 10/05/17 , recent d/c from [facility] on September 13 after a 4 month stay, pt reported being on Invega Sustenna last dose was September 13 234mg IM, pt reported to be compliant with meds but it is doubtful, because as per [facility] , last time pt filled meds were in 2017 pt reported that she feels depressed and expressed thought of killing self by walking in front of the traffic, pt also reported to have command type hallucinations. pt required further evaluation and stabilization, pt was admitted under voluntary status. patient was seen next to the nursing station, patient appears to be depressed, but with much improvement with her affect, patient smiled couple of times, as per staff patient is trying her best to attend groups, more visible in the unit. pt asked to be d/c tomorrow pt was on Invega sustenna 234mg IM, last dose October 11. So far patient tolerated medications well, no side effects observed or reported , aims 0, no EPS. Impression: Schizoaffective disorder, bipolar type Rule out adjustment disorder Medication Change: Yes (Cymbalta increased, invega sustenna 10/11/17) Medical Record Reviewed: Yes Consults ordered or reviewed: patient was seen by medical team, please see consultation also more detailed information Mental Status Examination - Cognitive Function Orientation: Person, Place, Situation Memory: Impaired Attention: Poor (improvement) Concentration: Poor (improvement) Association: WNL Fund of Knowledge: WNL - Mood Mood: Depressed ("a little better") - Affect Affect: Constricted (but more reactive and mood congruent) - Speech Speech: Soft - Formal Thought Process Formal Thought Process: Hallucinations (deneid) - Suicidal Ideation Suicidal Ideation: No - Homicidal Ideation Homicidal Ideation: No Goal/Treatment Plan - Goal/Treatment Plan Need for Continued Stay: Remain at risks for inpatient hospitalization, Severe depression anxiety, Discharge may exacerbated symptoms, Failed transitioning, Severe functional impairment Progress Toward Problem(s) and Goals/Treatment Plan: Milieu/structure/supportive therapy Aspirin [Lo-Dose Aspirin EC] 81 mg PO DAILY Levothyroxine [Synthroid] 0.05 mg PO DAILY metFORMIN [glucOPHAGE] 500 mg PO BID Benztropine [Cogentin] 0.5 tab PO BID Donepezil HCl [Aricept] 15 mg PO DAILY Fenofibrate [Tricor] 48 mg PO DAILY LORazepam [Ativan] 1mg PO TID Omeprazole Magnesium [Prilosec Otc] 20 mg PO DAILY Quetiapine Fumarate [Seroquel] 400 mg PO HS amLODIPine [Norvasc] 5 mg PO DAILY invega susstenna 234IM October 11 cymbalta 60mg po daily for depression and anxiety medical consult appreciated consultation for discharge plan and social issues Family involvement Follow up on labs Will monitor closely Pt was educated about risk/benefits and alternatives of medications, coping strategies (safety plan, suicide prevention), relapse prevention, importance of follow up with psychiatrist and therapist, stay away from drugs/alcohol/smoking Estimated Date of D/C: 10/15/17
[2017-10-15 07:32] VITALS: BP 133/89; PULSE 78; RESP 21; TEMP 97.8
[2017-10-15] MEDS: Pantoprazole 20 mg EC Tab PO SCH (08:22)
--- NOTE | 2017-10-15 08:28 | PN ---
DATE: 10/15/2017 SUBJECTIVE: She is resting comfortably in bed. She is in good spirits. No complaints. She tells me she is going home today. She had enough of the amoxicillin for the UTI. I will stop the amoxicillin at this time. She is urinating well with no more symptoms. She tells me she is also feeling better as far as she is mentally. She is currently on Aricept, Ativan, Cogentin, Cymbalta, Ecotrin, Glucophage, Maalox, milk of magnesia as needed, Norvasc, Ecotrin, Seroquel, Sonata, Thorazine, Tylenol and that is what she is taking. OBJECTIVE: VITAL SIGNS: Temperature 97.8, 78 pulse, 133/89 blood pressure, 21 respiratory rate. GENERAL: She is in good spirits. She is alert and comfortable. HEENT: Head is atraumatic, normocephalic. HEART: Regular rate. LUNGS: Clear to auscultation. ABDOMEN: Soft, obese, nontender. EXTREMITIES: No edema. DATA: Last labs on the and she did very well. Last blood sugar was 95. She is here for suicidal ideation, auditory hallucinations, depression, anxiety, high triglycerides, diabetes, UTI, GERD, hypertension, low potassium and I am hoping she could be discharged today as per Psych. Avelino Antoine DO
--- NOTE | 2017-10-15 17:06 | PCM.PYCHDC ---
Mental Status Examination - Mental Status Examination Orientation: Person, Place, Situation, Time Memory: Intact Mood: Neutral Affect: Constricted (but more reactive and mood congruent) Speech: Soft (and underproductive) Attention: WNL (much improved) Concentration: WNL (much improved) Association: Loose (aseline but with improvement) Fund of Knowledge: WNL Formal Thought Process: Delusions, Paranoia, Circumstantial Description of patient's judgement and insight: Pt has improved insight into mental and medical illness, pt was compliant with medications and unit rules and regulations, pt was going to groups, was calm, cooperative, socially appropriate, no behavioral incidents, no agitation, no aggression. Psychotic Thoughts and Behaviors: Pt denied v/a/t hallucinations, denied paranoid ideations, pt does not appear to be psychotic, and thought process is goal directed. Suicidal Ideation: No Current Homicidal Ideation?: No Plan: pt adamantly denied thoughts of harming self or others denied intent or plan. Discharge Summary - Discharge Note Reason for Hospitalization: pt was admitted for evaluation of depressive symptoms, suicidal ideation with the plan to walk into the traffic. Psychiatric History (includes Medical, Family, Personal Hx): see HPI Laboratory Data: Abnormal Lab Results 10/14/17 10/15/17 20:50 07:20 POC Glucose (mg/dL) 140 H 95 10/08/17 07:00 10/08/17 07:00 Lab Results 10/15/17 07:20: POC Glucose (mg/dL) 95 10/14/17 20:50: POC Glucose (mg/dL) 140 H 10/14/17 11:08: POC Glucose (mg/dL) 92 10/14/17 07:27: POC Glucose (mg/dL) 83 10/13/17 21:04: POC Glucose (mg/dL) 93 10/13/17 16:37: POC Glucose (mg/dL) 108 10/13/17 11:16: POC Glucose (mg/dL) 136 H 10/13/17 07:17: POC Glucose (mg/dL) 95 10/12/17 21:20: POC Glucose (mg/dL) 93 10/12/17 15:52: POC Glucose (mg/dL) 84 10/12/17 11:09: POC Glucose (mg/dL) 86 10/12/17 07:15: POC Glucose (mg/dL) 81 10/11/17 21:12: POC Glucose (mg/dL) 105 10/11/17 16:03: POC Glucose (mg/dL) 97 10/11/17 11:17: POC Glucose (mg/dL) 112 H 10/11/17 07:12: POC Glucose (mg/dL) 82 10/10/17 21:24: POC Glucose (mg/dL) 105 10/10/17 16:13: POC Glucose (mg/dL) 87 10/10/17 11:33: POC Glucose (mg/dL) 85 10/10/17 07:13: POC Glucose (mg/dL) 90 10/09/17 21:56: POC Glucose (mg/dL) 136 H 10/09/17 16:09: POC Glucose (mg/dL) 91 10/09/17 11:07: POC Glucose (mg/dL) 116 H 10/09/17 07:30: POC Glucose (mg/dL) 86 10/08/17 21:50: POC Glucose (mg/dL) 103 10/08/17 16:16: POC Glucose (mg/dL) 85 10/08/17 11:49: POC Glucose (mg/dL) 71 10/08/17 07:20: POC Glucose (mg/dL) 88 10/08/17 07:00: Sodium 144, Potassium 4.0, Chloride 109 H, Carbon Dioxide 23, Anion Gap 16, BUN 15, Creatinine 0.6 L, Est GFR ( Amer) > 60, Est GFR ( Non-Af Amer) > 60, Random Glucose 96, Calcium 9.5, Total Bilirubin 0.3, AST 17, ALT 30, Alkaline Phosphatase 61, Total Protein 6.7, Albumin 4.1, Globulin 2.7, Albumin/Globulin Ratio 1.5 10/08/17 07:00: WBC 5.4, RBC 4.62, Hgb 14.0, Hct 41.2, MCV 89.2, MCH 30.3, MCHC 34.0, RDW 13.0, Plt Count 284, MPV 10.3 10/07/17 21:42: POC Glucose (mg/dL) 91 10/07/17 16:31: POC Glucose (mg/dL) 84 10/07/17 11:14: POC Glucose (mg/dL) 85 10/07/17 07:26: POC Glucose (mg/dL) 85 10/07/17 06:40: Sodium 145, Potassium 3.4 L, Chloride 110 H, Carbon Dioxide 24, Anion Gap 15, BUN 16, Creatinine 0.5 L, Est GFR ( Amer) > 60, Est GFR ( Non-Af Amer) > 60, Random Glucose 95, Calcium 9.0, Total Bilirubin 0.3, AST 17, ALT 29, Alkaline Phosphatase 62, Total Protein 6.5, Albumin 3.9, Globulin 2.6, Albumin/Globulin Ratio 1.5 10/07/17 06:40: WBC 4.5 D, RBC 4.72, Hgb 14.2, Hct 42.1, MCV 89.2, MCH 30.1, MCHC 33.7, RDW 13.0, Plt Count 266, MPV 10.2 10/06/17 21:24: POC Glucose (mg/dL) 91 10/06/17 16:15: POC Glucose (mg/dL) 93 10/06/17 11:04: POC Glucose (mg/dL) 82 10/06/17 08:09: POC Glucose (mg/dL) 89 10/06/17 08:00: Triglycerides 245 H, Cholesterol 219 H, LDL Cholesterol Direct 134 H, HDL Cholesterol 42 10/06/17 08:00: Free T4 1.15, TSH 3rd Generation 0.85 10/06/17 08:00: RPR Nonreactive 10/05/17 11:55: Alcohol, Quantitative < 10 10/05/17 11:55: Salicylates < 1 L, Acetaminophen < 10.0 L 10/05/17 11:55: Urine Opiates Screen Negative, Urine Methadone Screen Negative, Ur Barbiturates Screen Negative, Ur Phencyclidine Scrn Negative, Ur Amphetamines Screen Negative, U Benzodiazepines Scrn Negative, U Oth Cocaine Metabols Negative, U Cannabinoids Screen Negative 10/05/17 11:55: Sodium 146, Potassium 3.6, Chloride 108 H, Carbon Dioxide 21, Anion Gap 21 H, BUN 12, Creatinine 0.6 L, Est GFR ( Amer) > 60, Est GFR ( Non-Af Amer) > 60, Random Glucose 101, Calcium 9.9, Magnesium 1.9, Total Bilirubin 0.3, AST 23, ALT 32, Alkaline Phosphatase 82, Total Protein 7.6, Albumin 4.6, Globulin 3.0, Albumin/Globulin Ratio 1.6 10/05/17 11:55: Urine Color Yellow, Urine Appearance Clear, Urine pH 6.0, Ur Specific Hominy >= 1.030, Urine Protein Trace H, Urine Glucose (UA) Negative, Urine Ketones Negative, Urine Blood Negative, Urine Nitrate Negative, Urine Bilirubin Negative, Urine Urobilinogen 0.2, Ur Leukocyte Esterase Small H, Urine RBC 1 - 3, Urine WBC 15 - 20, Ur Epithelial Cells Many, Urine Bacteria Many, Coarse Granular Casts Trace H, Urine Other Uyeast 10/05/17 11:55: WBC 9.3 D, RBC 4.95, Hgb 15.2, Hct 44.0, MCV 88.9 D, MCH 30.7 , MCHC 34.5, RDW 13.1, Plt Count 348, MPV 10.3, Gran % 79.4 H, Lymph % (Auto) 14.6 L, Eaton % (Auto) 5.4, Eos % (Auto) 0.5 L, Baso % (Auto) 0.1, Gran # 7.34 H , Lymph # (Auto) 1.4, Eaton # (Auto) 0.5, Eos # (Auto) 0.1, Baso # (Auto) 0.01 Vital Signs Temp Pulse Pulse Resp BP Pulse Ox 10/15/17 08:21 133/89 10/15/17 07:31 97.8 F 78 21 133/89 10/14/17 16:00 80 149/90 10/14/17 12:16 134/91 H 10/14/17 07:24 97.5 F L 94 H 18 134/91 H 10/13/17 16:00 85 142/92 H 10/13/17 07:22 97.2 F L 88 20 117/79 10/12/17 15:00 91 H 117/67 10/12/17 07:15 97.8 F 71 20 112/76 10/11/17 16:30 91 H 117/67 10/11/17 08:18 68 129/79 10/11/17 07:28 98.2 F 68 20 129/79 10/10/17 16:05 89 126/75 10/10/17 09:05 78 115/69 10/10/17 07:29 97.8 F 78 20 115/69 10/09/17 21:55 97.8 F 75 19 130/82 10/09/17 09:02 75 130/82 10/09/17 06:53 97.8 F 75 19 130/82 10/08/17 16:00 94 H 119/78 10/08/17 08:42 83 108/73 10/08/17 07:17 98.1 F 83 20 108/73 10/07/17 16:00 109 H 137/76 10/07/17 09:06 955 H 117/65 10/07/17 07:14 97.0 F L 95 H 18 117/67 10/06/17 16:00 104 H 136/97 H 10/06/17 08:58 70 130/78 10/06/17 06:49 98.0 F 70 20 130/78 10/05/17 17:02 84 16 10/05/17 16:18 100 10/05/17 16:10 72 18 121/80 100 10/05/17 15:12 74 18 126/82 99 10/05/17 13:32 68 16 119/80 99 10/05/17 12:10 98.4 F 75 18 117/78 100 Consultations:: List each consultation separately and include: 1. Reason for request. 2. Findings. 3. Follow-up Consultations: patient was seen by medical team, please see consultation also more detailed information Summary of Hospital Course include:: 1. Description of specific treatment plan utilized for patients during their course of treatmen. 2. Summarize the time- course for resolution of acute symptoms and/or regressed behaviors. 3. Describe issues identified and worked on during hospitalization. 4. Describe medication utilized. 5. Describe medical problems identified and treated. 6. Reassessment of suicide risk Summary of Hospital Course: Shortly, pt is a 62 y/o female reported h/o schizophrenia, not known h/o suicidal attempts, was referred by [facility] and brought in by [place] [employer] after missing person report after eloping from intake appointment 10/05/17 , recent d/c from [facility] on September 13 after a 4 month stay, pt reported being on Invega Sustenna last dose was September 13 234mg IM, pt reported to be compliant with meds but it is doubtful, because as per [facility] , last time pt filled meds were in 2017 pt reported that she feels depressed and expressed thought of killing self by walking in front of the traffic, pt also reported to have command type hallucinations. pt required further evaluation and stabilization, pt was admitted under voluntary status. patient was seen initially at the treatment team meeting, patient presented to be depressed, seems to lost a lot of weight, flat affect, tearful, acceptable personal hygiene, good ADLs. Patient reported that he lost her son over pancreatic cancer, pt reported that she was severely depressed, was not able to eat, lost a lot of weight, patient also was not able to sleep, patient reported that she was feeling hopeless and helpless, patient also reported that she hears command type hallucinations " come on, do it". this report writer is very familiar with this patient from the previous admission to the psychiatric inpatient unit where patient was completely disorganized, agitated, was not making any sense, this time patient presented much better but severely depressed and psychotic. from the previous assessments:collaterals from pt's daughter: Sandi Arechiga([phone]). pt has a hx of using crack cocaine and abusing prescription pills until 2007 in which she was sent to shelter for one year and then transferred to [facility] for 4 years. hx of attempting to commit suicide by drug overdose from the 1989's-1999s. pt have hx of aggressive behaviors. h/o court mandated Injection of Invega and court mandated to attend DTP. pt has h/o being in [facility] for 4years. Med. conditions reported: HTN Diabetes and GERD, pt has h/o UTI and delirium. pt denied using drugs or smoking cigarettes. patient has history of memory problems, during the assessment, patient was not aware what hospital she is in. med list from the previous admission. Invega sustenna will be added 234mg IM, last dose September 13, next is October 11. family h/o: denied 10/05/17 11:55 10/05/17 11:55 Lab Results 10/06/17 11:04: POC Glucose (mg/dL) 82 10/06/17 08:09: POC Glucose (mg/dL) 89 10/06/17 08:00: Triglycerides 245 H, Cholesterol 219 H, LDL Cholesterol Direct 134 H, HDL Cholesterol 42 10/06/17 08:00: Free T4 1.15, TSH 3rd Generation 0.85 10/05/17 11:55: Alcohol, Quantitative < 10 10/05/17 11:55: Salicylates < 1 L, Acetaminophen < 10.0 L 10/05/17 11:55: Urine Opiates Screen Negative, Urine Methadone Screen Negative, Ur Barbiturates Screen Negative, Ur Phencyclidine Scrn Negative, Ur Amphetamines Screen Negative, U Benzodiazepines Scrn Negative, U Oth Cocaine Metabols Negative, U Cannabinoids Screen Negative 10/05/17 11:55: Sodium 146, Potassium 3.6, Chloride 108 H, Carbon Dioxide 21, Anion Gap 21 H, BUN 12, Creatinine 0.6 L, Est GFR ( Amer) > 60, Est GFR ( Non-Af Amer) > 60, Random Glucose 101, Calcium 9.9, Magnesium 1.9, Total Bilirubin 0.3, AST 23, ALT 32, Alkaline Phosphatase 82, Total Protein 7.6, Albumin 4.6, Globulin 3.0, Albumin/Globulin Ratio 1.6 10/05/17 11:55: Urine Color Yellow, Urine Appearance Clear, Urine pH 6.0, Ur Specific Hominy >= 1.030, Urine Protein Trace H, Urine Glucose (UA) Negative, Urine Ketones Negative, Urine Blood Negative, Urine Nitrate Negative, Urine Bilirubin Negative, Urine Urobilinogen 0.2, Ur Leukocyte Esterase Small H, Urine RBC 1 - 3, Urine WBC 15 - 20, Ur Epithelial Cells Many, Urine Bacteria Many, Coarse Granular Casts Trace H, Urine Other Uyeast 10/05/17 11:55: WBC 9.3 D, RBC 4.95, Hgb 15.2, Hct 44.0, MCV 88.9 D, MCH 30.7 , MCHC 34.5, RDW 13.1, Plt Count 348, MPV 10.3, Gran % 79.4 H, Lymph % (Auto) 14.6 L, Eaton % (Auto) 5.4, Eos % (Auto) 0.5 L, Baso % (Auto) 0.1, Gran # 7.34 H , Lymph # (Auto) 1.4, Eaton # (Auto) 0.5, Eos # (Auto) 0.1, Baso # (Auto) 0.01 Vital Signs Temp Pulse Pulse Resp BP Pulse Ox 06/13/18 08:58 70 130/78 10/06/17 06:49 98.0 F 70 20 130/78 10/05/17 17:02 84 16 10/05/17 16:18 100 10/05/17 16:10 72 18 121/80 100 10/05/17 15:12 74 18 126/82 99 10/05/17 13:32 68 16 119/80 99 10/05/17 12:10 98.4 F 75 18 117/78 100 patient was stabilized on the following medications: Benztropine [Cogentin] 0.5 tab PO BID Donepezil HCl [Aricept] 15 mg PO DAILY heLORazepam [Ativan] 1mg PO TID Quetiapine Fumarate [Seroquel] 400 mg PO HS invega susstenna 234IM October 11 was given, next dose is 11/08/17 cymbalta 60mg po daily for depression and anxiety due to severe tear of the mental illness patient needs to be on 2 antipsychotic medication including Invega Sustenna as well as Seroquel Patient tolerated medications well, no side effects observed or reported, aims 0 , no EPS. Over the course of this hospitalization pt was attending groups, pt also had medication management, had therapeutic milieu. Overall pt improved significantly, pt's affect became brighter, pt was less depressed, has realistic future oriented plans, psychosis seems to be under control, pt was socially appropriate, no behavioral issues, pts insight improved as well and soon pt deemed to be ready for discharge. At the time of the discharge pt denied been depressed, denied thoughts of harming self or others, denied psychotic symptoms, and pt does not appeared to be psychotic, denied been anxious, pt is not in imminent danger to self or others, will be following up at [facility], information about follow up appointment, time and address provided to the pt, it is patient responsibility to follow up with outpatient clinic, PMD as well as specialists ( see SW note for more detailed information). In case pt will need to obtain results of studies pending at discharge pt was provided with contact information of Psychiatric Inpatient unit [phone] as well as Medical Record Department [phone]. patient denied using any drugs, denied smoking pt was provided with prescriptions for all of medications (please see medication reconciliation form) Pt was educated about safety plan in case of worsening of symptoms or in case of suicidal or homicidal ideation call 911 or go to the nearest ER, also was educated to take meds as prescribed and stay away from drugs, pt verbalized understanding. - Diagnosis (1) Schizophrenia Status: Acute - Final Diagnosis (DSM 5) Condition upon Discharge: IMPROVED Disposition: HOME/ ROUTINE Follow-up Treatment Plan: At the time of the discharge pt denied been depressed, denied thoughts of harming self or others, denied psychotic symptoms, and pt does not appeared to be psychotic, denied been anxious, pt is not in imminent danger to self or others, will be following up at [facility], information about follow up appointment, time and address provided to the pt, it is patient responsibility to follow up with outpatient clinic, PMD as well as specialists ( see SW note for more detailed information). In case pt will need to obtain results of studies pending at discharge pt was provided with contact information of Psychiatric Inpatient unit [phone] as well as Medical Record Department [phone]. patient denied using any drugs, denied smoking pt was provided with prescriptions for all of medications (please see medication reconciliation form) Pt was educated about safety plan in case of worsening of symptoms or in case of suicidal or homicidal ideation call 911 or go to the nearest ER, also was educated to take meds as prescribed and stay away from drugs, pt verbalized understanding. Prescriptions/Medication Reconciliation: Paliperidone Palmitate [Invega Sustenna] 234 mg IM Q30D #1 ser amLODIPine [Norvasc] 10 mg PO DAILY #7 tab Aspirin [Ecotrin] 81 mg PO DAILY #7 tabec Benztropine [Cogentin] 0.5 mg PO BID #30 tab Donepezil [Aricept] 15 mg PO DAILY #21 tab DULoxetine [Cymbalta] 60 mg PO DAILY #14 ecc Fenofibrate [Tricor] 48 mg PO DAILY #7 tab LORazepam [Ativan] 1 mg PO TID #42 tab metFORMIN [glucOPHAGE] 500 mg PO BID #14 tab Pantoprazole [Protonix EC Tab] 20 mg PO 0600 #7 ect Quetiapine Fumarate [Seroquel] 400 mg PO HS #14 tablet Zaleplon [Sonata] 5 mg PO HS PRN #14 cap PRN Reason: Insomnia - Smoking Cessation Smoking Cessation Medication prescribed: No Reason for not providing: denied smoking - Antipsychotic Medications Pt discharged on 2 or more routine antipsychotic medications: Yes - Justification for 2 or more meds Failed 3 or more trials of Monotherapy: List medications: patient failed more than 3 antipsychotic medications at present moment patient requires to be on in vague as well as Seroquel, patient was on dose medication in [facility], this report writer took over, patient might benefit from Clozaril but this report writer has concerns about metabolic syndrome. Patient she'll continue the same medications as of now.
== END 2017-10-15 11:27 | disposition home or self-care (01) | DRG 885 ==
LOC: ED 11:22 → ERH 15:09 → PSYC 16:35
PROVIDERS: ADMIT Psychiatry & Neurology Psychiatry; ATTEND Psychiatry & Neurology Psychiatry
DX: F25.0 Schizoaffective disorder, bipolar type (principal); R45.851 Suicidal ideations; N39.0 Urinary tract infection, site not specified; B95.4 Other streptococcus as the cause of diseases classified elsewhere; K21.9 Gastro-esophageal reflux disease without esophagitis; E11.9 Type 2 diabetes mellitus without complications; I11.0 Hypertensive heart disease with heart failure; I50.9 Heart failure, unspecified; J45.909 Unspecified asthma, uncomplicated; E78.1 Pure hyperglyceridemia; E03.9 Hypothyroidism, unspecified; F17.200 Nicotine dependence, unspecified, uncomplicated; R41.0 Disorientation, unspecified; F41.9 Anxiety disorder, unspecified; Z91.14 Patient's other noncompliance with medication regimen; Z79.84 Long term (current) use of oral hypoglycemic drugs; Z79.82 Long term (current) use of aspirin

== ENCOUNTER 2017-11-30 18:19 | Observation (INO) | payer MEDICARE, BC ==
[2017-11-30 18:19] VITALS: PULSE 89
[2017-11-30] MEDS ORDERED: Charcoal 50 gm/240 ml Susp PO STA (18:29)
--- NOTE | 2017-11-30 18:32 | ED PDOC ---
Arrival/HPI - General Time Seen by Provider: 11/30/17 18:22 Historian: Partner, EMS EM Caveat: Altered Mental Status - Critical Care Critical Care Minutes: 30 minutes - History of Present Illness Time/Duration: Prior to Arrival Symptom Onset: Sudden Symptom Course: Unchanged Severity Level: Moderate Associated Symptoms (Text): 11/30/17 18:30 Patient's common-law reports that the patient's son of pancreatic cancer approximately 8 weeks ago. Patient was admitted to the hospital for depression and suicidal ideation approximately 6 weeks ago. He reports that they were arguing all day today, and approximately one hour prior to arrival she took multiple Seroquel pills in an apparent suicide attempt. She is lethargic but arousable. Past Medical History - Past History Past History: No Previous - Infectious Disease Hx of Infectious Diseases: None - Cardiac Hx Cardiac Disorders: Yes Hx Congestive Heart Failure: Yes Hx Hypertension: Yes - Pulmonary Hx Respiratory Disorders: Yes Hx Asthma: Yes - Neurological Hx Neurological Disorder: No - HEENT Hx HEENT Disorder: No - Renal Hx Renal Disorder: No - Endocrine/Metabolic Hx Endocrine Disorders: Yes Hx Diabetes Mellitus Type 2: Yes Hx Hypothyroidism: Yes - Hematological/Oncological Hx Blood Disorders: No - Integumentary Hx Dermatological Disorder: No - Musculoskeletal/Rheumatological Hx Falls: No - Gastrointestinal Hx Gastrointestinal Disorders: Yes - Genitourinary/Gynecological Hx Genitourinary Disorders: No - Psychiatric Hx Anxiety: Yes Hx Bipolar Disorder: Yes Hx Depression: Yes Hx Emotional Abuse: No Hx Physical Abuse: No Hx Schizophrenia: Yes Hx Sexual Abuse: No Hx Substance Use: No - Surgical History Hx Cardiac Catheterization: Yes Hx Section: Yes Hx Cholecystectomy: Yes Hx Hysterectomy: Yes Hx Orthopedic Surgery: Yes (Bilateral ankle reconstruction, back surgery) - Anesthesia Hx Anesthesia: Yes Family/Social History - Physician Review Nursing Documentation Reviewed: Yes Family/Social History: Unknown Family HX Smoking Status: Heavy Smoker > 10 Cigarettes Daily (2 packs per day) Hx Alcohol Use: No Hx Substance Use: No 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 Hx Substance Use Treatment: No Allergies/Home Meds Allergies/Adverse Reactions: Allergies No Known Allergies Allergy (Verified 11/30/17 18:52) Review of Systems - Review of Systems Systems not reviewed;Unavailable: Altered Mental Status Physical Exam Vital Signs Temp Pulse Resp BP Pulse Ox 11/30/17 20:31 107 H 18 109/64 90 L 11/30/17 18:21 97.0 F L 108 H 18 101/62 86 L Temperature: Afebrile Blood Pressure: Normal Pulse: Regular Respiratory Rate: Normal Appearance: Positive for: Well-Appearing, Non-Toxic, Comfortable Pain Distress: None Mental Status: Positive for: Lethargic (Lethargic and oriented 2 only. Easily or rales.) - Systems Exam Head: Present: Atraumatic, Normocephalic Pupils: Present: PERRL Extroacular Muscles: Present: EOMI Conjunctiva: Present: Normal Mouth: Present: Moist Mucous Membranes Pharnyx: No: ERYTHEMA, EXUDATE, TONSILS ENLARGED Neck: Present: Normal Range of Motion Respiratory/Chest: Present: Clear to Auscultation, Good Air Exchange, Decreased Breath Sounds. No: Respiratory Distress, Accessory Muscle Use Cardiovascular: Present: Regular Rate and Rhythm, Normal S1, S2. No: Murmurs Abdomen: No: Tenderness, Distention, Peritoneal Signs, Rebound, Guarding Back: Present: Normal Inspection Upper Extremity: Present: Normal Inspection. No: Cyanosis, Edema Lower Extremity: Present: Normal Inspection. No: Edema Neurological: Present: GCS=15, CN II-XII Intact, Speech Normal, Motor Func Grossly Intact Skin: Present: Warm, Dry, Normal Color. No: Rashes Psychiatric: Present: Depressed Mood, Suicidal Ideation Medical Decision Making ED Course and Treatment: 11/30/17 18:54 EKG shows sinus tachycardia rate approximately 110 with normal QT and no acute ST or T-wave changes 11/30/17 20:[address] Antoine who will place on a telemetry observation bed and consult with cardiology and psychiatry. 11/30/17 21:00 Telemetry nurses sent written policy from June 2013 that any overdose is not to go to telemetry but must be admitted to ICU. 11/30/17 21:09 Discussed with the returns clerk , who accepts to intensive care unit. - Lab Interpretations Lab Results: 11/30/17 18:35 11/30/17 18:35 Lab Results 11/30/17 18:35: Alcohol, Quantitative < 10 11/30/17 18:35: Salicylates < 1 L, Acetaminophen < 10.0 L 11/30/17 18:35: Urine Opiates Screen Negative, Urine Methadone Screen Negative, Ur Barbiturates Screen Negative, Ur Phencyclidine Scrn Negative, Ur Amphetamines Screen Negative, U Benzodiazepines Scrn Negative, U Oth Cocaine Metabols Negative, U Cannabinoids Screen Negative 11/30/17 18:35: Sodium 147, Potassium 3.6, Chloride 108 H, Carbon Dioxide 24, Anion Gap 19, BUN 27 H, Creatinine 0.8, Est GFR ( Amer) > 60, Est GFR ( Non-Af Amer) > 60, Random Glucose 134 H, Calcium 10.0, Magnesium 2.1, Total Bilirubin 0.6, AST 30, ALT 40, Alkaline Phosphatase 61, Total Creatine Kinase 69 , Troponin I < 0.01, Total Protein 7.5, Albumin 4.5, Globulin 3.0, Albumin/ Globulin Ratio 1.5 11/30/17 18:35: Urine Color Yellow, Urine Appearance Clear, Urine pH 6.0, Ur Specific Guffey >= 1.030, Urine Protein 30 H, Urine Glucose (UA) Negative, Urine Ketones Negative, Urine Blood Negative, Urine Nitrate Negative, Urine Bilirubin Negative, Urine Urobilinogen 0.2, Ur Leukocyte Esterase Negative, Urine RBC 0 - 2, Urine WBC Negative, Ur Epithelial Cells None, Urine Bacteria Trace, Hyaline Casts 0 - 2 11/30/17 18:35: WBC 7.9 D, RBC 4.57, Hgb 14.3, Hct 42.3, MCV 92.6 D, MCH 31.3 , MCHC 33.8, RDW 14.4, Plt Count 345, MPV 10.9, Gran % 64.2, Lymph % (Auto) 28.0 , [place] % (Auto) 6.2 H, Eos % (Auto) 1.5, Baso % (Auto) 0.1, Gran # 5.05, Lymph # (Auto) 2.2, [place]gs # (Auto) 0.5, Eos # (Auto) 0.1, Baso # (Auto) 0.01 - RAD Interpretation Radiology Orders: 11/30/17 18:29 CHEST PORTABLE [RAD] Stat - Medication Orders Current Medication Orders: Discontinued Medications Charcoal (Actidose 50 Gm/240 Ml Susp) 50 gm PO STAT STA Stop: 11/30/17 18:30 Last Admin: 11/30/17 20:30 Dose: 50 gm Disposition/Present on Arrival - Present on Arrival Any Indicators Present on Arrival: No History of DVT/PE: No History of Uncontrolled Diabetes: No Urinary Catheter: No History of Decub. Ulcer: No History Surgical Site Infection Following: None - Disposition Have Diagnosis and Disposition been Completed?: Yes Diagnosis: Suicide attempt, Overdose Disposition: HOSPITALIZED Disposition Time: 20:38 Patient Plan: Observation, Telemetry Patient Problems: Current Active Problems Problem Status Onset Overdose Acute Suicide attempt Acute Condition: FAIR Referrals: Avelino Antoine DO [Primary Care Provider] - Follow up with primary
[2017-11-30 19:14] LABS: BASO # 0.01 K/mm3 (0.0-2.0); BASO % 0.1 % (0.0-3.0); EOS # 0.1 (0.0-0.7); EOS % 1.5 % (1.5-5.0); GRAN # 5.05 (1.4-6.5); GRAN % 64.2 % (50.0-68.0); HEMOGLOBIN 14.3 g/dL (12.0-16.0); LYMPH # 2.2 (1.2-3.4); MEAN CELL VOLUME 92.6 fl (80.0-105.0); MEAN CORPUSCULAR HEMOGLOBIN 31.3 pg (25.0-35.0); MEAN CORPUSCULAR HGB CONC 33.8 g/dl (31.0-37.0); MEAN PLATELET VOLUME 10.9 fl (7.0-11.0); MONO # 0.5 (0.1-0.6); MONO % 6.2 % (1.0-6.0); RBC 4.57 10^6/uL (3.5-6.1); RED CELL DISTRIBUTION WIDTH 14.4 % (11.5-14.5); WHITE BLOOD COUNT 7.9 10^3/ul (4.5-11.0)
[2017-11-30 19:18] LABS: URINE BILIRUBIN NEGATIVE (NEGATIVE); URINE BLOOD NEGATIVE (NEGATIVE); URINE GLUCOSE (UA) NEGATIVE (NEGATIVE); URINE LEUKOCYTE ESTERASE NEGATIVE Leu/uL (NEGATIVE); URINE PROTEIN 30 mg/dL (<30 mg/dL); URINE UROBILINOGEN 0.2 E.U./dL (<1 E.U./dL)
[2017-11-30 19:20] LABS: URINE APPEARANCE CLEAR (CLEAR); URINE COLOR YELLOW (YELLOW)
[2017-11-30 19:25] LABS: ACETAMINOPHEN < 10.0 ug/ml (10.0-20.0); SALICYLATE < 1 mg/dL (2.0-20.0); URINE RBC 0 - 2 /hpf (0-2); URINE WBC NEGATIVE /hpf (0-6)
[2017-11-30 19:26] LABS: ALB/GLOB RATIO 1.5 (1.1-1.8); ALBUMIN 4.5 g/dL (3.0-4.8); ALT/SGPT 40 U/L (7-56); AST/SGOT 30 U/L (14-36); BLOOD UREA NITROGEN 27 mg/dL (7-21); GFR AFRICAN-AMERICAN > 60; GFR NON-AFRICAN AMERICAN > 60; URINE BACTERIA TRACE (NEG); URINE HYALINE CAST 0 - 2 /hpf
[2017-11-30 19:37] LABS: BARBITURATES, UR NEGATIVE (NEGATIVE); BENZODIAZEPINES, UR NEGATIVE (NEGATIVE); OPIATES, UR NEGATIVE (NEGATIVE); PHENCYCLIDINE, UR NEGATIVE (NEGATIVE)
[2017-11-30 19:53] LABS: TROPONIN I < 0.01 ng/mL
--- NOTE | 2017-11-30 21:56 | CP.PCM.CON ---
<Aldo Vallejo - Last Filed: 12/01/17 07:46> History of Present Illness - History of Present Illness History of Present Illness: Aldo Vallejo D.O. PGY-1,Internal Medicine Resident. ICU consult note for Dr Gerard Patient is 62 year old female with a recorded past medical history of htn, dm, hyothyroidism, CHF, asthma, depression, anxiety, schizoprenia who was brought in by ambulance after taking 14 seroquel tablets in a suicide attempt. Patient seen at bedside in ICU. Patient is arousable but lethargic. She responds to verbal stimuli and is able to answer some questions appropirately. Patient also folllows commands and moves extremities past midline. Patient admits to taking 14 seroquel tablets earlier today in an attempt to end her life. Patient denies specific provoking event which led to her actions. As per records, patient's son secondary to pancreatic cancer 6 weeks ago and underwent an argument with her spouse earlier today. Currently offers no complaints. Denies fever, chills, chest pain, shortness of breath, abdominal pain, nausea, vomiting , diarrhea, constipation, and urinary symptoms. 12-point review of systems negative except as indicated in the HPI Past Medical History: as per records htn, dm, hyothyroidism, CHF, asthma, depression, anxiety, schizoprenia Past Surgical History: as per records, hx of c section, cholecystectomy, bilateral ankle reconstruction, back surgery Allergies: NKDA Family History: unknown Social History: unknown Primary Care Physician: Dr. Antoine Review of Systems - Hematologic/Lymphatic Additional comments: 12-point review of systems negative except as indicated in the HPI Past Patient History - Infectious Disease Hx of Infectious Diseases: None - Past Medical History & Family History Past Medical History?: Yes - Past Social History Smoking Status: Heavy Smoker > 10 Cigarettes Daily (2 packs per day) - CARDIAC Hx Cardiac Disorders: Yes Hx Congestive Heart Failure: Yes Hx Hypertension: Yes - PULMONARY Hx Respiratory Disorders: Yes Hx Asthma: Yes - NEUROLOGICAL Hx Neurological Disorder: No - HEENT Hx HEENT Problems: No - RENAL Hx Chronic Kidney Disease: No - ENDOCRINE/METABOLIC Hx Endocrine Disorders: Yes Hx Diabetes Mellitus Type 2: Yes Hx Hypothyroidism: Yes - HEMATOLOGICAL/ONCOLOGICAL Hx Blood Disorders: No - INTEGUMENTARY Hx Dermatological Problems: No - MUSCULOSKELETAL/RHEUMATOLOGICAL Hx Falls: No - GASTROINTESTINAL Hx Gastrointestinal Disorders: Yes - GENITOURINARY/GYNECOLOGICAL Hx Genitourinary Disorders: No - PSYCHIATRIC Hx Anxiety: Yes Hx Bipolar Disorder: Yes Hx Depression: Yes Hx Emotional Abuse: No Hx Physical Abuse: No Hx Schizophrenia: Yes Hx Sexual Abuse: No Hx Substance Use: No - SURGICAL HISTORY Hx Cardiac Catheterization: Yes Hx Section: Yes Hx Cholecystectomy: Yes Hx Hysterectomy: Yes Hx Orthopedic Surgery: Yes (Bilateral ankle reconstruction, back surgery) - ANESTHESIA Hx Anesthesia: Yes Meds Allergies/Adverse Reactions: Allergies Allergy/AdvReac Type Severity Reaction Status Date / Time No Known Allergies Allergy Verified 12/01/17 20:29 Physical Exam - Constitutional Appears: No Acute Distress, Unkempt - Head Exam Head Exam: ATRAUMATIC, NORMAL INSPECTION - Eye Exam Eye Exam: Conjunctival injection. absent: Scleral icterus Pupil Exam: Miosis, NORMAL ACCOMODATION - ENT Exam ENT Exam: Mucous Membranes Dry - Neck Exam Neck exam: Positive for: Normal Inspection - Respiratory Exam Respiratory Exam: Decreased Breath Sounds, NORMAL BREATHING PATTERN. absent: Accessory Muscle Use - Cardiovascular Exam Cardiovascular Exam: Tachycardia, +S1, +S2 - GI/Abdominal Exam GI & Abdominal Exam: Soft. absent: Guarding, Rigid, Tenderness - Extremities Exam Extremities exam: Positive for: normal inspection. Negative for: pedal edema - Neurological Exam Neurological exam: Alert, Altered, Oriented x3 - Psychiatric Exam Psychiatric exam: Flat Affect - Skin Skin Exam: Dry, Intact, Warm Results - Vital Signs Recent Vital Signs: Last Vital Signs Temp 97.0 F L 11/30/17 18:21 Pulse 107 H 11/30/17 20:31 Resp 18 11/30/17 20:31 BP 109/64 11/30/17 20:31 Pulse Ox 90 L 11/30/17 20:31 - Labs Result Diagrams: 11/30/17 18:35 11/30/17 18:35 Assessment & Plan - Assessment and Plan (Free Text) Assessment: 62 year old female with a recorded past medical history of htn, dm, hyothyroidism, CHF, asthma, depression, anxiety, schizoprenia who was brought in by ambulance after taking 14 seroquel tablets in a suicide attempt. EKG shows prolonged QTc 529. Admitted to ICU for cardiac monitoring. Plan: Neuro: - Patient is awake, alert, responds to verbal stimuli, answers some questions appropriately, follows commands, and moves extremities past midline Cardio: - Hx of htn- hold home antihypertensive at this time - BPs trended, reviewed, and appreciated- 100s/60s - troponin 0.01 x 1 - goal MAP > 65 - cardiology consulted- QTc prolongation on serial EKGs s/p seroquel ingestion- EKGs q4h as per poison control- no other recommendations at this time - will continue to monitor closely Pulm: - keep SaO2 above 92% GI: - prophylaxis with protonix - NGT in place with charcoal - NPO Renal/Electrolytes: - creatinine and BUN trended, reviewed, and appreciated- within normal limits - will continue to monitor closely Endo: - keep patient euglycemic Heme: - Hgbs trended, reviewed, and appreciated, within normal limits. will continue to monitor closely - DVT prophylaxis with subq heparin Psych: - history schizoprhrenia, depression, anxiety - suicide attempt - 1:1 at all times - psych consulted- appreciate recommendations Patient seen, case reviewed with, and plan approved by attending physician, Dr. Gerard. - Date & Time Date: 11/30/17 Time: 21:55 <Too Gerard - Last Filed: 12/02/17 02:52> Results - Vital Signs Recent Vital Signs: Last Vital Signs Temp 98.2 F 12/01/17 04:00 Pulse 89 12/01/17 11:17 Resp 24 12/01/17 11:17 BP 135/79 12/01/17 11:05 Pulse Ox 98 12/01/17 04:00 - Labs Result Diagrams: 12/01/17 06:24 12/01/17 06:24 Labs: Laboratory Results - last 24 hr 12/01/17 12/01/17 12/01/17 06:24 06:24 09:07 WBC 6.3 D RBC 4.43 Hgb 13.4 Hct 40.7 MCV 91.9 MCH 30.2 MCHC 32.9 RDW 14.2 Plt Count 310 MPV 10.3 Gran % 67.2 Lymph % (Auto) 22.3 Ward % (Auto) 8.4 H Eos % (Auto) 1.9 Baso % (Auto) 0.2 Gran # 4.24 Lymph # (Auto) 1.4 Ward # (Auto) 0.5 Eos # (Auto) 0.1 Baso # (Auto) 0.01 Sodium 144 Potassium 3.9 Chloride 110 H Carbon Dioxide 23 Anion Gap 14 BUN 19 Creatinine 0.6 L Est GFR ( Amer) > 60 Est GFR (Non-Af Amer) > 60 POC Glucose (mg/dL) 133 H Random Glucose 101 Calcium 9.0 Phosphorus 3.6 Magnesium 2.1 Total Bilirubin 0.5 AST 25 ALT 62 H Alkaline Phosphatase 57 Troponin I Total Protein 7.4 Albumin 4.4 Globulin 3.0 Albumin/Globulin Ratio 1.4 12/01/17 12/01/17 12/01/17 11:34 12:15 15:54 WBC RBC Hgb Hct MCV MCH MCHC RDW Plt Count MPV Gran % Lymph % (Auto) Ward % (Auto) Eos % (Auto) Baso % (Auto) Gran # Lymph # (Auto) Ward # (Auto) Eos # (Auto) Baso # (Auto) Sodium Potassium Chloride Carbon Dioxide Anion Gap BUN Creatinine Est GFR ( Amer) Est GFR (Non-Af Amer) POC Glucose (mg/dL) 89 95 Random Glucose Calcium Phosphorus Magnesium Total Bilirubin AST ALT Alkaline Phosphatase Troponin I < 0.01 Total Protein Albumin Globulin Albumin/Globulin Ratio 12/01/17 12/01/17 16:20 18:43 WBC RBC Hgb Hct MCV MCH MCHC RDW Plt Count MPV Gran % Lymph % (Auto) Ward % (Auto) Eos % (Auto) Baso % (Auto) Gran # Lymph # (Auto) Ward # (Auto) Eos # (Auto) Baso # (Auto) Sodium Potassium Chloride Carbon Dioxide Anion Gap BUN Creatinine Est GFR ( Amer) Est GFR (Non-Af Amer) POC Glucose (mg/dL) 103 121 H Random Glucose Calcium Phosphorus Magnesium Total Bilirubin AST ALT Alkaline Phosphatase Troponin I Total Protein Albumin Globulin Albumin/Globulin Ratio Attending/Attestation - Attestation I have personally seen and examined this patient.: Yes I have fully participated in the care of the patient.: Yes I have reviewed all pertinent clinical information: Yes Notes (Text): 12/02/17 02:50 Patient was seen when she was in the ER . Agree with consultation note. Following should be noted. PMH: DM II Morbid obesity. HTN. Bronchial asthma. HLD. Hypothyroidism Cardiomoegaly with CHF. Abdominal hematoma. Hydronephrosis. GERD. Anxiety. Depression. Bipolar disease. Schizophrenia. Hypokalemia. Caridal catheterization. Cholecystectomy. Hystrectomy. Bilaterla ankle surgery. Back surgery.Partial diskectomy. [employer]obbaco dependence. Coacaine use history. Family history of HTN.
[2017-12-01 00:03] LABS: HDL CHOLESTEROL 50 mg/dL (29-60)
[2017-12-01 00:13] LABS: LDL CHOLESTEROL 164 mg/dL (0-129)
[2017-12-01 01:03] VITALS: O2SAT 98
[2017-12-01 06:02] VITALS: BMI 39.4
[2017-12-01 06:31] LABS: BASO # 0.01 K/mm3 (0.0-2.0); BASO % 0.2 % (0.0-3.0); EOS # 0.1 (0.0-0.7); EOS % 1.9 % (1.5-5.0); GRAN # 4.24 (1.4-6.5); GRAN % 67.2 % (50.0-68.0); HEMOGLOBIN 13.4 g/dL (12.0-16.0); LYMPH # 1.4 (1.2-3.4); LYMPH % 22.3 % (22.0-35.0); MEAN CELL VOLUME 91.9 fl (80.0-105.0); MEAN CORPUSCULAR HEMOGLOBIN 30.2 pg (25.0-35.0); MEAN CORPUSCULAR HGB CONC 32.9 g/dl (31.0-37.0); MEAN PLATELET VOLUME 10.3 fl (7.0-11.0); MONO # 0.5 (0.1-0.6); MONO % 8.4 % (1.0-6.0); RBC 4.43 10^6/uL (3.5-6.1); RED CELL DISTRIBUTION WIDTH 14.2 % (11.5-14.5); WHITE BLOOD COUNT 6.3 10^3/ul (4.5-11.0)
[2017-12-01 06:45] LABS: ALB/GLOB RATIO 1.4 (1.1-1.8); ALBUMIN 4.4 g/dL (3.0-4.8); ALT/SGPT 62 U/L (7-56); AST/SGOT 25 U/L (14-36); BLOOD UREA NITROGEN 19 mg/dL (7-21); GFR AFRICAN-AMERICAN > 60; GFR NON-AFRICAN AMERICAN > 60
[2017-12-01 06:58] VITALS: TEMP 98.2
[2017-12-01] MEDS ORDERED: Insulin Lispro (humaLOG) MEDIUM Coverage SC SCH (07:30)
--- NOTE | 2017-12-01 09:06 | RAD ---
Date of service: 11/30/2017 HISTORY: od COMPARISON: 10/05/2017 FINDINGS: LUNGS: No active pulmonary disease. PLEURA: No significant pleural effusion identified, no pneumothorax apparent. CARDIOVASCULAR: Normal. OSSEOUS STRUCTURES: No significant abnormalities. VISUALIZED UPPER ABDOMEN: Normal. OTHER FINDINGS: None. IMPRESSION: The nasogastric tube is in satisfactory position
--- NOTE | 2017-12-01 09:18 | CON ---
Copied To: Travon Shaffer MD Attending MD: Travon Shaffer MD DATE: 12/01/2017 HISTORY OF PRESENT ILLNESS: This is a 62-year-old lady with history of diabetes, hypothyroidism, CHF, hypertension, asthma, depression, anxiety, who had recently very tragic event in the family, which prompted her suicidal attempt and Seroquel overdose (intentional). The patient was brought in to ICU where she was found to be a little bit sleepy overnight. The patient is alert, awake currently, oriented x3. Her QTc is in 400s. No nausea. No vomiting. No diarrhea. No constipation. No fever. No chills. No sweats. PAST MEDICAL HISTORY: Hypertension, diabetes, hypothyroidism, CHF, asthma, depression, anxiety, schizophrenia. PAST SURGICAL HISTORY: , cholecystectomy, bilateral ankle reconstruction, back surgery. ALLERGIES: NKDA. FAMILY HISTORY: Noncontributory. SOCIAL HISTORY: No alcohol or illicit drug abuse. No tobacco smoking. REVIEW OF SYSTEMS: Reveals 12-organ systems other than mentioned in the history of present illness is negative. PHYSICAL EXAMINATION: VITAL SIGNS: Temperature 98.2, heart rate 79, respiratory rate 18, oxygen saturation 98% on room air, blood pressure 120/65. ENT: Head and neck atraumatic. LUNGS: Clear to auscultation bilaterally. HEART: Regular rate and rhythm. S1 and S2 normal. ABDOMEN: Soft, nontender and nondistended. MUSCULOSKELETAL: No C/C/E. NEURO: The patient moves all extremities spontaneously. SKIN: Moist. PSYCH: The patient is alert, awake and oriented. Protecting her airways. LABORATORY DATA: WBC 6.3, hemoglobin 13.4, platelet count 310. Sodium 144, potassium 3.9, chloride 110, carbon dioxide 23, BUN 19, creatinine 0.6, glucose 101, AST 25, ALT 62, total bilirubin 0.5. Salicylates less than 1, acetaminophen less than 10. Other U-tox screen is negative. Alcohol less than 10. Urine is negative for leukocyte esterase and nitrites. MEDICATIONS: Medications at home; TriCor, Aricept, Cymbalta, Cogentin, aspirin, metformin, Norvasc, Sonata, Seroquel, Protonix, paliperidone, Ativan. EKG showed no specific ischemic changes. QTc 481. ASSESSMENT AND PLAN: This is a 62-year-old lady, who presented with intentional Seroquel overdose during apparent suicidal attempt. The patient appears to be depressed. At present time, no signs of cardiac arrhythmias, QTc prolongation. She is alert, awake, protecting the airways. She is on one-to-one observation. Psychiatry consult is pending. We will continue to target euvolemia, euglycemia, normothermia and oxygen saturation more than 90%. We will continue with deep venous thrombosis and GI prophylaxis. ccm time 40 min Travon Shaffer MD [id number]
--- NOTE | 2017-12-01 11:00 | CP.CCUPN ---
<Miguel Whitehead - Last Filed: 12/01/17 10:57> CCU Subjective - Physician Review Events Since Last Encounter (Free Text): Miguel Whitehead, PGY-1 ICU Progress Note Patient seen and examined at bedside. Patient states she slept well overnight. Admits to good appetite and is urinating without complaint. QTc has been downtrending. Transfer to [facility] pending. Denies CP, palpitations, SOB, abdominal pain, urinary complaints and headaches. 12 point ROS reviewed here, otherwise negative. CCU Objective - Vital Signs / Intake & Output Intake and Output (Last 8hrs): Intake & Output 11/30/17 12/01/17 12/01/17 22:59 06:59 14:59 Intake Total 120 Output Total 700 Balance -580 Weight 195 lb 3 oz 195 lb 3 oz Intake: IV 120 Hand 120 Output: Urine 700 Urine, Voided 700 Other: # Voids Urine, Voided 3 - Physical Exam Head: Positive for: Atraumatic, Normocephalic Pupils: Positive for: PERRL Extroacular Muscles: Positive for: EOMI Conjunctiva: Positive for: Normal Mouth: Positive for: Moist Mucous Membranes Pharnyx: Negative for: ERYTHEMA, EXUDATE, TONSILS ENLARGED Neck: Positive for: Normal Range of Motion Respiratory/Chest: Positive for: Clear to Auscultation, Good Air Exchange, Decreased Breath Sounds. Negative for: Respiratory Distress, Accessory Muscle Use Cardiovascular: Positive for: Regular Rate and Rhythm, Normal S1, S2. Negative for: Murmurs Abdomen: Negative for: Tenderness, Distention, Peritoneal Signs, Rebound, Guarding Back: Positive for: Normal Inspection Upper Extremity: Positive for: Normal Inspection. Negative for: Cyanosis, Edema Lower Extremity: Positive for: Normal Inspection. Negative for: Edema Neurological: Positive for: GCS=15, CN II-XII Intact, Speech Normal, Motor Func Grossly Intact Skin: Positive for: Warm, Dry, Normal Color. Negative for: Rashes Psychiatric: Positive for: Alert, Oriented x 3, Depressed Mood, Suicidal Ideation - Medications Active Medications: Active Medications Generic Name Dose Route Start Last Admin Trade Name Freq PRN Reason Stop Dose Admin Aspirin 81 mg 12/01/17 10:00 12/01/17 10:04 Ecotrin PO 81 mg DAILY KALLI Administration Benztropine Mesylate 0.5 mg 12/01/17 10:00 12/01/17 10:04 Cogentin PO 0.5 mg BID KALLI Administration Donepezil HCl 15 mg 12/01/17 10:00 12/01/17 10:00 Aricept PO 15 mg DAILY KALLI Administration Duloxetine HCl 60 mg 12/01/17 10:00 12/01/17 10:03 Cymbalta PO 60 mg DAILY KALLI Administration Fenofibrate 48 mg 12/01/17 10:00 12/01/17 10:03 Tricor PO 48 mg DAILY KALLI Administration Heparin Sodium (Porcine) 5,000 units 12/01/17 06:00 12/01/17 05:47 Heparin SC 5,000 units Q8 KALLI Administration Protocol Insulin Human Regular 0 units 12/01/17 11:30 Humulin R Med SC ACHS KALLI Protocol Lorazepam 1 mg 12/01/17 10:00 12/01/17 10:04 Ativan PO 1 mg TID KALLI Administration Protocol Metformin HCl 500 mg 12/01/17 10:00 12/01/17 10:04 Glucophage PO 500 mg BID KALLI Administration Pantoprazole Sodium 20 mg 12/02/17 06:00 Protonix Ec Tab PO 0600 KALLI Quetiapine Fumarate 400 mg 12/01/17 22:00 Seroquel PO HS KALLI Zaleplon 5 mg 12/01/17 08:44 Sonata PO HS PRN Insomnia - Patient Studies Lab Studies: Lab Studies 12/01/17 12/01/17 12/01/17 Range/Units 09:07 06:24 06:24 WBC 6.3 D (4.5-11.0) 10^3/ul RBC 4.43 (3.5-6.1) 10^6/uL Hgb 13.4 (12.0-16.0) g/dL Hct 40.7 (36.0-48.0) % MCV 91.9 (80.0-105.0) fl MCH 30.2 (25.0-35.0) pg MCHC 32.9 (31.0-37.0) g/dl RDW 14.2 (11.5-14.5) % Plt Count 310 (120.0-450.0) 10^3/uL MPV 10.3 (7.0-11.0) fl Gran % 67.2 (50.0-68.0) % Lymph % (Auto) 22.3 (22.0-35.0) % Taliaferro % (Auto) 8.4 H (1.0-6.0) % Eos % (Auto) 1.9 (1.5-5.0) % Baso % (Auto) 0.2 (0.0-3.0) % Gran # 4.24 (1.4-6.5) Lymph # (Auto) 1.4 (1.2-3.4) Tal[place]ferro # (Auto) 0.5 (0.1-0.6) Eos # (Auto) 0.1 (0.0-0.7) Baso # (Auto) 0.01 (0.0-2.0) K/mm3 Sodium 144 (132-148) mmol/L Potassium 3.9 (3.6-5.0) mmol/L Chloride 110 H (98-107) mmol/L Carbon Dioxide 23 (21-33) mmol/L Anion Gap 14 (10-20) BUN 19 (7-21) mg/dL Creatinine 0.6 L (0.7-1.2) mg/dl Est GFR ( Amer) > 60 Est GFR (Non-Af Amer) > 60 POC Glucose (mg/dL) 133 H (65-110) mg/dL Random Glucose 101 (70-110) mg/dL Calcium 9.0 (8.4-10.5) mg/dL Phosphorus 3.6 (2.5-4.5) mg/dL Magnesium 2.1 (1.7-2.2) mg/dL Total Bilirubin 0.5 (0.2-1.3) mg/dL AST 25 (14-36) U/L ALT 62 H (7-56) U/L Alkaline Phosphatase 57 (38-126) U/L Total Protein 7.4 (5.8-8.3) g/dL Albumin 4.4 (3.0-4.8) g/dL Globulin 3.0 gm/dL Albumin/Globulin Ratio 1.4 (1.1-1.8) Laboratory Results - last 24 hr 12/01/17 12/01/17 12/01/17 06:24 06:24 09:07 WBC 6.3 D RBC 4.43 Hgb 13.4 Hct 40.7 MCV 91.9 MCH 30.2 MCHC 32.9 RDW 14.2 Plt Count 310 MPV 10.3 Gran % 67.2 Lymph % (Auto) 22.3 Taliaferro % (Auto) 8.4 H Eos % (Auto) 1.9 Baso % (Auto) 0.2 Gran # 4.24 Lymph # (Auto) 1.4 [place]ferro # (Auto) 0.5 Eos # (Auto) 0.1 Baso # (Auto) 0.01 Sodium 144 Potassium 3.9 Chloride 110 H Carbon Dioxide 23 Anion Gap 14 BUN 19 Creatinine 0.6 L Est GFR ( Amer) > 60 Est GFR (Non-Af Amer) > 60 POC Glucose (mg/dL) 133 H Random Glucose 101 Calcium 9.0 Phosphorus 3.6 Magnesium 2.1 Total Bilirubin 0.5 AST 25 ALT 62 H Alkaline Phosphatase 57 Total Protein 7.4 Albumin 4.4 Globulin 3.0 Albumin/Globulin Ratio 1.4 EKG/Cardiology Studies: Cardiology / EKG Studies 11/30/17 10:30 EKG [ELECTROCARDIOGRAM] Q4H Comment: Reason For Exam: seroquel od 11/30/17 14:30 EKG [ELECTROCARDIOGRAM] Q4H Comment: Reason For Exam: seroquel od 11/30/17 18:30 EKG [ELECTROCARDIOGRAM] Q4H Comment: Reason For Exam: seroquel od 11/30/17 22:30 EKG [ELECTROCARDIOGRAM] Q4H Comment: Reason For Exam: Seroquel overdose Critical Care Progress Note - Nutrition Nutrition: Nutrition Category Date Time Status Heart Healthy Diet [DIET] Diets 12/01/17 Breakfast Active Assessment/Plan - Assessment and Plan (Free Text) Assessment: Assessment: 62 F with PMH of HTN, DM, hypothyroidism, CHF, asthma, depression, anxiety, schizophrenia presenting to ICU for cardiac monitoring after Seroquel overdose. Transfer to [facility]. Plan: Neuro: -maintain normothermia -AAO x3, moving extremities spontaneously past midline. Responding appropriately to questions. Cardio: -Maintain MAP>65, troponin 0.01 WNL -BP noted and trended, 100-120/60-70 overnight -HR noted and trended, 90-110 overnight -will monitor vitals including HR and BP -Monitor serial EKG. Downtrending QTc in the following order: 487, 529, 481 (1AM ), 487 (5:30AM), 470 (10:30AM) -Spoke with poison control, advised to provide symptomatic relief -Cardio on consult, Dr. Michaels Psych: -history of schizophrenia, anxiety and depression -1:1 at all times -Psych on consult, Dr. Mcneil Lungs: -SaO2 >90% -supplementary O2 PRN Renal: -maintain euvolemia -avoid nephrotoxic agents, hypochloremia -replace electrolytes as needed -BUN/Cr 19/0.6 WNL Heme: -Hg today is 13.4 WNL -DVT ppx with heparin 5k SC Endo: -maintain euglycemia ID: -WBC is 6.3 today, afebrile. No concern at this time -GI: -healthy heart diet, liquid diet -GI prophylaxis with protonix <Travon Shaffer - Last Filed: 12/01/17 18:50> CCU Objective - Vital Signs / Intake & Output Intake and Output (Last 8hrs): Intake & Output 12/01/17 12/01/17 12/01/17 06:59 14:59 22:59 Intake Total 120 600 Output Total 700 750 Balance -580 -150 Weight 195 lb 3 oz Intake: IV 120 Hand 120 Oral 600 Output: Urine 700 750 Urine, Voided 700 750 Other: # Voids Urine, Voided 3 3 - Patient Studies Lab Studies: Lab Studies 12/01/17 12/01/17 12/01/17 Range/Units 18:43 15:54 12:15 WBC (4.5-11.0) 10^3/ul RBC (3.5-6.1) 10^6/uL Hgb (12.0-16.0) g/dL Hct (36.0-48.0) % MCV (80.0-105.0) fl MCH (25.0-35.0) pg MCHC (31.0-37.0) g/dl RDW (11.5-14.5) % Plt Count (120.0-450.0) 10^3/uL MPV (7.0-11.0) fl Gran % (50.0-68.0) % Lymph % (Auto) (22.0-35.0) % Tal[place]ferro % (Auto) (1.0-6.0) % Eos % (Auto) (1.5-5.0) % Baso % (Auto) (0.0-3.0) % Gran # (1.4-6.5) Lymph # (Auto) (1.2-3.4) [place]ferro # (Auto) (0.1-0.6) Eos # (Auto) (0.0-0.7) Baso # (Auto) (0.0-2.0) K/mm3 Sodium (132-148) mmol/L Potassium (3.6-5.0) mmol/L Chloride (98-107) mmol/L Carbon Dioxide (21-33) mmol/L Anion Gap (10-20) BUN (7-21) mg/dL Creatinine (0.7-1.2) mg/dl Est GFR ( Amer) Est GFR (Non-Af Amer) POC Glucose (mg/dL) 121 H 95 (65-110) mg/dL Random Glucose (70-110) mg/dL Calcium (8.4-10.5) mg/dL Phosphorus (2.5-4.5) mg/dL Magnesium (1.7-2.2) mg/dL Total Bilirubin (0.2-1.3) mg/dL AST (14-36) U/L ALT (7-56) U/L Alkaline Phosphatase (38-126) U/L Troponin I < 0.01 ng/mL Total Protein (5.8-8.3) g/dL Albumin (3.0-4.8) g/dL Globulin gm/dL Albumin/Globulin Ratio (1.1-1.8) 12/01/17 12/01/17 12/01/17 Range/Units 11:34 09:07 06:24 WBC (4.5-11.0) 10^3/ul RBC (3.5-6.1) 10^6/uL Hgb (12.0-16.0) g/dL Hct (36.0-48.0) % MCV (80.0-105.0) fl MCH (25.0-35.0) pg MCHC (31.0-37.0) g/dl RDW (11.5-14.5) % Plt Count (120.0-450.0) 10^3/uL MPV (7.0-11.0) fl Gran % (50.0-68.0) % Lymph % (Auto) (22.0-35.0) % [place]ferro % (Auto) (1.0-6.0) % Eos % (Auto) (1.5-5.0) % Baso % (Auto) (0.0-3.0) % Gran # (1.4-6.5) Lymph # (Auto) (1.2-3.4) [place]ferro # (Auto) (0.1-0.6) Eos # (Auto) (0.0-0.7) Baso # (Auto) (0.0-2.0) K/mm3 Sodium 144 (132-148) mmol/L Potassium 3.9 (3.6-5.0) mmol/L Chloride 110 H (98-107) mmol/L Carbon Dioxide 23 (21-33) mmol/L Anion Gap 14 (10-20) BUN 19 (7-21) mg/dL Creatinine 0.6 L (0.7-1.2) mg/dl Est GFR ( Amer) > 60 Est GFR (Non-Af Amer) > 60 POC Glucose (mg/dL) 89 133 H (65-110) mg/dL Random Glucose 101 (70-110) mg/dL Calcium 9.0 (8.4-10.5) mg/dL Phosphorus 3.6 (2.5-4.5) mg/dL Magnesium 2.1 (1.7-2.2) mg/dL Total Bilirubin 0.5 (0.2-1.3) mg/dL AST 25 (14-36) U/L ALT 62 H (7-56) U/L Alkaline Phosphatase 57 (38-126) U/L Troponin I ng/mL Total Protein 7.4 (5.8-8.3) g/dL Albumin 4.4 (3.0-4.8) g/dL Globulin 3.0 gm/dL Albumin/Globulin Ratio 1.4 (1.1-1.8) 12/01/17 Range/Units 06:24 WBC 6.3 D (4.5-11.0) 10^3/ul RBC 4.43 (3.5-6.1) 10^6/uL Hgb 13.4 (12.0-16.0) g/dL Hct 40.7 (36.0-48.0) % MCV 91.9 (80.0-105.0) fl MCH 30.2 (25.0-35.0) pg MCHC 32.9 (31.0-37.0) g/dl RDW 14.2 (11.5-14.5) % Plt Count 310 (120.0-450.0) 10^3/uL MPV 10.3 (7.0-11.0) fl Gran % 67.2 (50.0-68.0) % Lymph % (Auto) 22.3 (22.0-35.0) % [place]ferro % (Auto) 8.4 H (1.0-6.0) % Eos % (Auto) 1.9 (1.5-5.0) % Baso % (Auto) 0.2 (0.0-3.0) % Gran # 4.24 (1.4-6.5) Lymph # (Auto) 1.4 (1.2-3.4) [place]ferro # (Auto) 0.5 (0.1-0.6) Eos # (Auto) 0.1 (0.0-0.7) Baso # (Auto) 0.01 (0.0-2.0) K/mm3 Sodium (132-148) mmol/L Potassium (3.6-5.0) mmol/L Chloride (98-107) mmol/L Carbon Dioxide (21-33) mmol/L Anion Gap (10-20) BUN (7-21) mg/dL Creatinine (0.7-1.2) mg/dl Est GFR ( Amer) Est GFR (Non-Af Amer) POC Glucose (mg/dL) (65-110) mg/dL Random Glucose (70-110) mg/dL Calcium (8.4-10.5) mg/dL Phosphorus (2.5-4.5) mg/dL Magnesium (1.7-2.2) mg/dL Total Bilirubin (0.2-1.3) mg/dL AST (14-36) U/L ALT (7-56) U/L Alkaline Phosphatase (38-126) U/L Troponin I ng/mL Total Protein (5.8-8.3) g/dL Albumin (3.0-4.8) g/dL Globulin gm/dL Albumin/Globulin Ratio (1.1-1.8) Laboratory Results - last 24 hr 12/01/17 12/01/17 12/01/17 06:24 06:24 09:07 WBC 6.3 D RBC 4.43 Hgb 13.4 Hct 40.7 MCV 91.9 MCH 30.2 MCHC 32.9 RDW 14.2 Plt Count 310 MPV 10.3 Gran % 67.2 Lymph % (Auto) 22.3 Taliaferro % (Auto) 8.4 H Eos % (Auto) 1.9 Baso % (Auto) 0.2 Gran # 4.24 Lymph # (Auto) 1.4 [place]ferro # (Auto) 0.5 Eos # (Auto) 0.1 Baso # (Auto) 0.01 Sodium 144 Potassium 3.9 Chloride 110 H Carbon Dioxide 23 Anion Gap 14 BUN 19 Creatinine 0.6 L Est GFR ( Amer) > 60 Est GFR (Non-Af Amer) > 60 POC Glucose (mg/dL) 133 H Random Glucose 101 Calcium 9.0 Phosphorus 3.6 Magnesium 2.1 Total Bilirubin 0.5 AST 25 ALT 62 H Alkaline Phosphatase 57 Troponin I Total Protein 7.4 Albumin 4.4 Globulin 3.0 Albumin/Globulin Ratio 1.4 12/01/17 12/01/17 12/01/17 11:34 12:15 15:54 WBC RBC Hgb Hct MCV MCH MCHC RDW Plt Count MPV Gran % Lymph % (Auto) Taliaferro % (Auto) Eos % (Auto) Baso % (Auto) Gran # Lymph # (Auto) [place]ferro # (Auto) Eos # (Auto) Baso # (Auto) Sodium Potassium Chloride Carbon Dioxide Anion Gap BUN Creatinine Est GFR ( Amer) Est GFR (Non-Af Amer) POC Glucose (mg/dL) 89 95 Random Glucose Calcium Phosphorus Magnesium Total Bilirubin AST ALT Alkaline Phosphatase Troponin I < 0.01 Total Protein Albumin Globulin Albumin/Globulin Ratio 12/01/17 18:43 WBC RBC Hgb Hct MCV MCH MCHC RDW Plt Count MPV Gran % Lymph % (Auto) Taliaferro % (Auto) Eos % (Auto) Baso % (Auto) Gran # Lymph # (Auto) [place]ferro # (Auto) Eos # (Auto) Baso # (Auto) Sodium Potassium Chloride Carbon Dioxide Anion Gap BUN Creatinine Est GFR ( Amer) Est GFR (Non-Af Amer) POC Glucose (mg/dL) 121 H Random Glucose Calcium Phosphorus Magnesium Total Bilirubin AST ALT Alkaline Phosphatase Troponin I Total Protein Albumin Globulin Albumin/Globulin Ratio EKG/Cardiology Studies: Cardiology / EKG Studies 11/30/17 18:30 EKG [ELECTROCARDIOGRAM] Q4H Comment: Reason For Exam: seroquel od 11/30/17 22:30 EKG [ELECTROCARDIOGRAM] Q4H Comment: Reason For Exam: Seroquel overdose Critical Care Progress Note - Nutrition Nutrition: Nutrition Category Date Time Status Heart Healthy Diet [DIET] Diets 12/01/17 Breakfast Active Attending/Attestation - Attestation I have personally seen and examined this patient.: Yes I have fully participated in the care of the patient.: Yes I have reviewed all pertinent clinical information: Yes Notes (Text): 12/01/17 18:[address] Shaffer note
[2017-12-01 11:20] VITALS: BP 135/79; PULSE 89; RESP 24
[2017-12-01] MEDS ORDERED: Insulin Reg-MEDIUM-Coverage SC SCH (11:30)
--- NOTE | 2017-12-01 11:50 | CARD ---
APPROVED REPORT Date of service: 12/01/2017 EKG Measurement Heart [id number] <Conclusion> Normal sinus rhythm normal ECG
--- NOTE | 2017-12-01 12:05 | HP ---
Copied To: Avelino Antione DO Attending MD: Avelino Antoine DO HISTORY OF PRESENT ILLNESS: I have [facility] a few years now. She is a 62-year-old white female, who now presents with a suicidal attempt for what I understand. The patient's common-law states about 8 weeks ago, the son of pancreatic cancer. She is very depressed. She has suicidal ideation 6 weeks ago. They have been arguing all day. She took multiple Seroquel pills in a suicide attempt. She is a lot lethargic, but arousable in the ER. PAST MEDICAL HISTORY: She has a past medical history of CHF, hypertension, asthma, diabetes, hypothyroidism, anxiety, depression, schizophrenia. She has had a , cholecystectomy, hysterectomy, bilateral ankle reconstruction, back surgery. She has had cardiac catheterizations. FAMILY HISTORY: There is hypertension in the family. SOCIAL HISTORY: She is a heavy smoker, more than 2 packs a day despite telling her to quit many times. No alcohol. No drugs, but she used to do cocaine. She has been cleared for 7 years. ALLERGIES: NO KNOWN DRUG ALLERGIES. REVIEW OF SYSTEMS: At this time, she is lethargic in bed. No acute vision or hearing changes. No sore throat. No chest pain or shortness of breath. No abdominal pain, nausea or vomiting. She is lethargic. She wants to . She is very sad. PHYSICAL EXAMINATION: VITAL SIGNS: She has a 97 temp, 108 pulse, 18 respiratory rate, 101/62 blood pressure, 90% O2 sat. GENERAL: She is lethargic, but arousable. HEENT: Head is atraumatic, normocephalic. Pupils equal, reactive to light. Extraocular muscles are intact. Throat is moist. NECK: Supple. HEART: Regular rate. Normal S1 and S2. LUNGS: Decreased breath sounds, but clear to auscultation bilaterally. Poor inspiration. ABDOMEN: Soft, nontender. Positive bowel sounds. No guarding. No rebound. No CVA tenderness, but she is obese. EXTREMITIES: No edema bilaterally. She can move all 4 extremities. NEUROLOGIC: GCS is 15. Cranial nerves II through XII grossly intact. Speech is normal. SKIN: Warm and dry. No apparent rashes or ulcers. PSYCHIATRIC: Definitely depressed with suicidal ideation. She has tried to commit suicide. She is under a lot of depression and stress at home losing a child and arguments with her common-law . LABORATORY DATA: She has a 6.3 white count, 13.4 hemoglobin, 40.7 hematocrit with a 310 platelets. 144 sodium, potassium 3.9. BUN is 19, she came in with 27; creatinine is 0.6. GFR is greater than 60, sugar is 101, calcium is 9, phosphorus 3.6, magnesium 2.1, total bili is 0.5, AST is 25, ALT is 62, alk phos 67, total protein 7.4, albumin is 4.4, globulin is 3, triglycerides are 184, cholesterol is 267. Urine was clean. Toxicology was clean. IMPRESSION: We are going to watch her overnight on a one-to-one in the Intensive Care Unit under observation because overdose Seroquel, there could be EKG issues and I spoke to the internal revenue service agent this morning, there were none. I am hoping that we could transfer her upstairs to the 5B where she has been many times before. I will increase her diet. As per psychiatrist, she is here for suicide attempt, overdose, she has schizophrenia, depression, anxiety, congestive heart failure, hypertension history, major smoker. She is told to quit. I called in Cardiology and Psychiatry. If Cardiology clears, Psychiatry will take. We will discharge her upstairs this afternoon to 5B, the psychiatric floor. Avelino Antoine DO MTDD
--- NOTE | 2017-12-01 13:37 | CON ---
Copied To: Jai Michaels MD Attending MD: Jai Michaels MD DATE: 12/01/2017 HISTORY: The patient is a 62-year-old woman who presents with a suicide attempt. There was a question whether the QT was prolonged. PAST MEDICAL HISTORY: Includes a history of schizophrenia, depression as well as a history of asthma. The patient denies chest pain, denies history of syncope. No previous cardiac history is noted. An echocardiogram performed in 08/2016 reveals an ejection fraction of 36% with LVH with LVH with no pulmonary hypertension noted. A nuclear MUGA scan was performed, which revealed a normal ejection fraction in the same time period. REVIEW OF SYSTEMS: The patient denies shortness of breath. A 14-point review of systems is reviewed in detail. No cardiac symptoms are noted. SOCIAL HISTORY The patient is a two pack a day smoker. PHYSICAL EXAMINATION: GENERAL: The patient is awake, alert. VITAL SIGNS: Blood pressure is 100/60, heart rate is in the 80s, normal sinus rhythm. NECK: Negative JVD. LUNGS: Without rales. HEART: Reveal S1, S2. EXTREMITIES: Without edema. DATA: Hemoglobin is 13.4. Chemistries: BUN and creatinine unremarkable. Troponins negative x x1. EKG shows normal sinus rhythm with no prolonged QT noted. IMPRESSION: 1. Status post suicidal ideation. 2. No prolongation of QT interval. 3. Questionable chronic obstructive pulmonary disease. 4. Questionable cardiomyopathy in the past with conflicting imaging studies performed at the same time. 5. Obesity. Given these findings, there are no arrhythmias. No evidence for prolonged QT interval. No further cardiac workup is indicated at this time. Jai Michaels MD
--- NOTE | 2017-12-01 15:17 | CARD ---
APPROVED REPORT Date of service: 12/01/2017 EKG Measurement Heart [id number] <Conclusion> Poor data quality, interpretation may be adversely affected Normal sinus rhythm Septal infarct, age undetermined Possible Lateral infarct, age undetermined vs misplaced lead V6 Abnormal ECG
--- NOTE | 2017-12-01 15:17 | CARD ---
APPROVED REPORT Date of service: 12/01/2017 EKG Measurement Heart [id number] [id number] <Conclusion> Normal sinus rhythm ST abnormality, possible digitalis effect Prolonged QT Abnormal ECG
--- NOTE | 2017-12-01 15:20 | CARD ---
APPROVED REPORT Date of service: 11/30/2017 EKG Measurement Heart [id number] [id number] <Conclusion> Sinus tachycardia Left ventricular hypertrophy with repolarization abnormality Abnormal ECG
--- NOTE | 2017-12-01 15:34 | CARD ---
APPROVED REPORT Date of service: 12/01/2017 EKG Measurement Heart [id number] [place] 164P47 [id number] <Conclusion> Normal sinus rhythm ST abnormality, possible digitalis effect Abnormal ECG
[2017-12-02] MEDS ORDERED: Pantoprazole 20 mg EC Tab PO SCH (06:00)
--- NOTE | 2017-12-02 11:52 | CARD ---
APPROVED REPORT Date of service: 11/30/2017 EKG Measurement Heart [id number] <Conclusion> Sinus tachycardia Voltage criteria for left ventricular hypertrophy ST abnormality, possible digitalis effect Abnormal ECG
== END 2017-12-01 16:46 ==
LOC: ED 18:19 → ERH 21:06 → ICU 22:33
PROVIDERS: ADMIT Family Medicine; ATTEND Family Medicine
DX: T43.592A Poisoning by other antipsychotics and neuroleptics, intentional self-harm, initial encounter (principal); I50.9 Heart failure, unspecified; I11.0 Hypertensive heart disease with heart failure; E11.9 Type 2 diabetes mellitus without complications; E03.9 Hypothyroidism, unspecified; E87.6 Hypokalemia; F20.9 Schizophrenia, unspecified; F31.9 Bipolar disorder, unspecified; K21.9 Gastro-esophageal reflux disease without esophagitis; F41.9 Anxiety disorder, unspecified; F17.210 Nicotine dependence, cigarettes, uncomplicated; J45.909 Unspecified asthma, uncomplicated; E66.01 Morbid (severe) obesity due to excess calories; Z68.39 Body mass index [BMI] 39.0-39.9, adult; E78.5 Hyperlipidemia, unspecified
CPT/HCPCS: 36415; 71045; 80053; 80061; 81001; 82550; 82948; 83036; 83735; 84100; 84484; 85025; 87081; 93005; 99285; G0378; G0480; J1644

== ENCOUNTER 2017-12-01 16:46 | Inpatient (IN) | payer MEDICARE, BC ==
[2017-11-30 18:19] VITALS: PULSE 89
[2017-12-01 06:02] VITALS: BMI 39.4
--- NOTE | 2017-12-01 18:37 | PCM.BM ---
<Gardenia Smith - Last Filed: 12/01/17 18:34> Treatment Plan Problems - Problems identified on initial assessmt hopelesness/helplessness Date Initiated: 12/01/17 Time Initiated: 18:35 Assessment reference: NA Status: Active ineffective coping Date Initiated: 12/01/17 Time Initiated: 18:35 Assessment reference: NA Status: Active social isolation Date Initiated: 12/01/17 Time Initiated: 18:37 Assessment reference: NA Status: Active Treatment assets and liabiliti Patient Assests: cooperative, educated, self-reliant, ADL independent, negotiates basic needs, cognitively intact Patient Liabilities: poor support system, dietary restrictions, medical problems - Milieu Protocol Maintain good personal hygiene: every shift Encourage regular showers, every shift Remind patient to perform daily oral care, every shift Assist patient to perform ADL's Maintain personal safety: every shift Educate patient to report safety concerns to staff, every shift Monitor environment for contraband/sharps Medication safety: Monitor for expected outcome, potential side effects: every shift, Assess barriers to learning: every shift, Assess readiness for medication education: every shift Discharge/Continuing Care - Education Needs Education Needs: Patient Medication, Patient Diagnosis/Disease Process, Patient Coping Skills, Patient Activities of Daily Living, Patient Health Practices/ Safety, Patient Personal Hygiene/Grooming - Discharge Discharge Criteria: Tolerates medication w/o severe side effects, Free of Suicidal thoughts, Free of Homicidal thoughts, Free of paranoid thoughts, Free of agitation, Normal sleep pattern, Ability to care for self <Kannan Llanes - Last Filed: 12/02/17 12:17> - Diagnosis (1) Schizoaffective disorder Status: Acute Interventions: Cymbalta 60 mg po daily for anxiety and depression Ativan 1 mg po QID for anxiety Sonata 5 mg po HS for insomnia Cogentin 0.5 mg po daily for EPS prophylaxis Continue to hold Seroquel and Invega, Qtc =[address] Albin Velazquez. Requesting daily EKGs <Olya Bui - Last Filed: 12/03/17 16:44> Family Contact Family involvement: Famliy/SO not involved - Outside Agency [facility] Care involvment: Following patient during stay, Information-sharing Agency contact name: [facility] Agency contact number: [phone]
--- NOTE | 2017-12-02 05:18 | CON ---
Copied To: Ewa More MD Attending MD: Ewa More MD DATE: 12/01/2017 HISTORY OF PRESENT ILLNESS: In short, the patient is a 62-year-old female with long debilitating history of schizoaffective disorder. The patient was admitted to ICU, then downgraded to telemetry unit status post suicidal attempt, overdose on Seroquel 400 mg 14 pills in order to kill herself. The patient was seen and examined for evaluation of depression as well as suicidal attempt. The patient was seen and examined. The patient presented to be alert. The patient is very familiar to this principal technical writer from multiple admissions to the psychiatric inpatient unit as well as on the medical site. The patient presented to be depressed. The patient reported that she lost her son approximately 8 weeks ago. This principal technical writer would like to emphasize the fact that the patient was admitted to the psychiatric inpatient unit here in [place] right after of her son. The patient reported that she has a hard time dealing with her loss. The patient said that it was her only son. She has no sons, but she has one daughter. The patient reported that she was feeling depressed, living situation is far from ideal, the patient's boyfriend is schizophrenic and chronic alcoholic. The patient reported that yesterday they were arguing and the patient wanted to leave, but she called to boarding homes, but there was no bed available. The patient out of despair, went to her bedroom, took container of the pills, Seroquel 400 mg 14 pills, the patient took it all, did not tell anyone. The patient made it clear that she wanted to in peace, "it was too much for me to handle." The patient then started to call her boyfriend. Boyfriend came over and realized that the patient overdosed, and called 911. The patient has no remorse over her act. The patient said that she is careless if she is alive or . The patient said that she feels very depressed and down. This principal technical writer called to the patient's pharmacy. The patient was on Invega 234 mg monthly, patient was due for her injection today, 12/01/2017. The patient is on lorazepam 1 mg three times day; Sonata 5 mg at the nighttime; benztropine 0.5 mg, we will continue that, donepezil 5 mg daily, quetiapine 400 mg at the nighttime, we will hold that medication as of now. The patient is on Cymbalta 60 mg daily, we will continue, aspirin 81 mg. The patient is on pantoprazole 20 mg daily, metformin 500 mg twice a day, amlodipine 10 mg a day. The patient was seen by Dr. Antoine and the patient was followed up with [facility]. MENTAL STATUS EXAMINATION: As this principal technical writer described above, the patient appears to be depressed and tearful, intermittent eye contact. Mood described as hopeless. Affect was tearful, mood congruent. Thought process seems to be coherent, but at times, the patient lost track of her thoughts. Thought content, the patient denied visual, auditory or tactile hallucinations. Denied paranoid ideation. The patient denied thoughts of harming herself or others at present moment, but seems to be very hopeless and careless if she is still alive or not. Insight and judgment seems to be limited. Impulses are unpredictable. IMPRESSION: As per history, schizoaffective disorder; right now, the patient lost her son, pathological grief, rule-out grieving. PLAN: The patient signed consent for psychiatric admission, Invega, this principal technical writer called into the [facility] pharmacy, 234 mg, but we will hold on that medication because QTC prolongation more than 400. The patient also is on quetiapine, but we will hold that medication as of now. The patient was seen by trust vault clerk, Dr. Michaels, cleared for transfer to the psychiatric inpatient unit. The patient also was cleared by Dr. Antoine. This principal technical writer had prolonged conversation with Dr. Shaffer. Chest x-ray was done. Electrocardiogram was done. The 464 was on 11/30/2017; QTc was 529 on repeat one. We will keep monitoring QTc. For now, benzodiazepines will be continued. We will hold on antipsychotic medications. Only p.r.n. Thorazine will be started. We will repeat EKG. The patient will be transferred to the psychiatric inpatient unit. Should you have any questions, give me a call back. Thank you very much for letting me participate in the care of your patient. Ewa More MD [facility] # [id number]
[2017-12-02] MEDS: Pantoprazole 20 mg EC Tab PO SCH (06:38)
[2017-12-02 07:41] LABS: HDL CHOLESTEROL 48 mg/dL (29-60)
[2017-12-02 07:52] LABS: LDL CHOLESTEROL 134 mg/dL (0-129)
[2017-12-02 07:58] LABS: FREE T4 0.52 ng/dL (0.78-2.19)
--- NOTE | 2017-12-02 11:55 | CON ---
Copied To: Avelino Antoine DO Attending MD: Avelino Antoine DO HISTORY OF PRESENT ILLNESS: I saw her in the Psychiatric Unit. She was put in the hospital after an overdose and she spent 24 hours in the intensive care unit after taking Seroquel on a suicide attempt. Then, she was cleared by the licensed direct entry midwife and the milk bottler and was transferred to the psychiatric floor. I am doing a consult for her. She is a 62-year-old female, who is doing much better now. Does not feel suicidal anymore, but is depression. Recently, per common-law , the son of pancreatic cancer and she is very very depressed. PAST MEDICAL HISTORY: She has a past medical history of CHF, hypertension, asthma, diabetes, hypothyroidism, anxiety, depression, schizophrenia. PAST SURGICAL HISTORY: She had a , cholecystectomy, hysterectomy, bilateral ankle reconstruction, back surgery. She has had cardiac catheterizations. FAMILY HISTORY: There is hypertension in the family. SOCIAL HISTORY: She is a heavy smoker, more than 2 packs a day. She has tried to quit. She has no alcohol. No drugs. She used to do cocaine. She has been cleared for 7 years. ALLERGIES: NO KNOWN DRUG ALLERGIES. MEDICATIONS: She is on her regular medications here in the psychiatric unit. REVIEW OF SYSTEMS: At this time, she is much more alert, talking, happy, ate her breakfast, good spirits. No acute vision or hearing changes. No more lethargy. No sore throat. No chest pain. No shortness of breath. No abdominal pain. No nausea, vomiting, constipation, diarrhea. She is much more energetic. No skin issues that she knows of. She is not anxious. May be a little bit depressed. PHYSICAL EXAMINATION: VITAL SIGNS: She has a 98.4 temp, 92 pulse, 142/93 blood pressure, 20 respiratory rate. So, she is a little hypertensive, I will take care of that. HEENT: Her head is atraumatic, normocephalic. Extraocular muscles are intact. Pupils equal, reactive to light. Throat is moist. NECK: Supple. HEART: Regular rate. Normal S1 and S2. LUNGS: Clear to auscultation bilaterally. No wheezes, rhonchi or rales. ABDOMEN: Soft, nontender. Positive bowel sounds. Mildly obese. No CVA tenderness. EXTREMITIES: No edema of the lower extremities. She can move all 4 extremities well. NEUROLOGIC: GCS is 15. Cranial nerves II through XII grossly intact. Speech is normal. SKIN: Warm and dry. No apparent rashes or ulcers. PSYCHIATRIC: Not as depressed as yesterday. Much more alert. She actually smiled. LABORATORY DATA: She had some blood tests. She has a 132 blood sugar, 273 triglycerides, 240 cholesterol, 134 LDL, TSH is 1.71. ASSESSMENT: I will order some labs for tomorrow. I am going to adjust the blood pressure medications. I will continue to follow her here. Thank you very much for having me be participating in her care. She is on Aricept, Ativan, Cogentin, Cymbalta, Ecotrin, Glucophage, Norvasc, Protonix, Sonata and TriCor. I will watch her blood pressure here. We will keep an eye on it. I asked her to take low-salt diet and hopefully she will improve. She was here for suicidal attempts, schizophrenia, suicidal ideation, congestive heart failure, hypertension. She is a smoker. Avelino Antoine DO
--- NOTE | 2017-12-02 12:16 | PCM.PSYCH ---
Initial Psychiatric Evaluation - Initial Psychiatric Evaluation Type of Admission: Voluntary History of Present Illness and Precipitating Events: Patient is a 62-year-old female with a long history of schizoaffective disorder, numerous psychiatric admissions both involuntary and voluntary- most recently [facility], 10/05/17-10/15/17 (after the of her 31-year -old son due to pancreatic/liver cancer), history of inconsistent compliance with outpatient follow-up and medication who was transferred from the medical floor after treatment of SA by overdosing on (14) 400 mg Seroquel tablets. Records indicate that patient was forthcoming in that she took this overdose in order to and patient did not show remorse for her actions. Dr. More consulted with patient while she was medically stabilized and recommended a psychiatric inpatient stabilization. Pharmacy was contacted and following medications were confirmed: Invega Sustenna 234 mg IM due 12/01/17 Ativan 1 mg po TID Sonata 5 mg HS prn Cogentin 0.5 mg po daily Cymbalta 60 mg po daily Donepezil 5 mg po daily Seroquel 400 mg po HS Invega Sustenna 234 mg IM and Seroquel 400 mg HS were held due to prolonged QT. This value is approximately 367 this morning, an improvement from prior values of 464 and 529. I met with patient at bedside this morning. She is alert and oriented to month, year, location and circumstances. She is fairly cooperative and reports that she remains depressed and anxious. Her affect is constricted and patient's responses are coherent and relevant. Patient denies having any suicidal thoughts at this time though endorses symptoms of low mood, low frustration tolerance, lability, low energy and motivation. Patient is tolerating medications that were continued. She denies any new discomfort, pain or side effects. She is not experiencing any hallucinations and does not appear to be responding to internal stimuli. Thus far they have been no behavioral issues on the unit and she is cooperative with treatment recommendations. PSYCHIATRIC HISTORY Most recent psychiatric admission was October 05 to October 15, 2017 at [facility]. She was discharged on: Invega Sustenna 234 mg IM (NEXT DOSE DUE 12/01/17) Benztropine 0.5 mg PO BID Cymbalta 60 mg PO DAILY Ativan 1 mg PO TID Seroquel 400 mg PO HS Sonata 5 mg PO HS PRN Patient also had a prolonged hospitalization at [facility] for four months with discharge on September 13, 2017. Prior records also indicate the patient had been previously hospitalized [facility] for four years. Patient has a prior suicide attempts by overdosing in the 1989's and s. Patient has a history of aggressive behaviors Patient also has a history of IOC (court mandated outpatient treatment) and injections. SOCIAL HISTORY Patient lives with her boyfriend of nine years. She is unemployed. She has a 41- year-old daughter and two grandchildren. Patient also had a son who was 31 years old when he of pancreatic/liver cancer approximately three months ago. Patient has a history of crack cocaine and prescription pill abuse until 2007. She was sent to shelter for year at that time and then transfer to [facility] for four years. Patient denies any current drug or alcohol use. Patient reports that she smokes three packs of cigarettes daily. I reviewed morbidity and mortality risk of continued tobacco use with patient and offered patient nicotine patch which she accepted. Current Medications: Active Medications Generic Name Dose Route Start Last Admin Trade Name Freq PRN Reason Stop Dose Admin Amlodipine Besylate 10 mg 12/02/17 08:00 Norvasc PO DAILY KALLI Aspirin 81 mg 12/02/17 08:00 Ecotrin PO DAILY KALLI Benztropine Mesylate 0.5 mg 12/02/17 08:00 Cogentin PO DAILY KALLI Donepezil HCl 5 mg 12/02/17 08:00 Aricept PO DAILY KALLI Duloxetine HCl 60 mg 12/02/17 08:00 Cymbalta PO DAILY KALLI Fenofibrate 145 mg 12/02/17 08:00 Tricor PO DAILY KALLI Lorazepam 1 mg 12/01/17 22:00 12/01/17 22:43 Ativan PO 1 mg QID KALLI Administration Protocol Lorazepam 2 mg 12/01/17 18:34 Ativan IM QID PRN Anxiety Protocol Metformin HCl 500 mg 12/01/17 18:30 12/01/17 19:03 Glucophage PO 500 mg BID KALLI Administration Pantoprazole Sodium 20 mg 12/02/17 06:00 12/02/17 06:38 Protonix Ec Tab PO 20 mg 0600 KALLI Administration Zaleplon 5 mg 12/01/17 22:00 12/01/17 22:43 Sonata PO 5 mg HS KALLI Administration Past Psychiatric History - Past Psychiatric History Pertinent Medical Hx (Current Medical&Sleep Prob, Allergies): Allergies Allergy/AdvReac Type Severity Reaction Status Date / Time No Known Allergies Allergy Verified 12/01/17 20:29 Aspirin [Ecotrin] 81 mg PO DAILY #7 tabec 10/15/17 Benztropine [Cogentin] 0.5 mg PO BID #30 tab 10/15/17 DULoxetine [Cymbalta] 60 mg PO DAILY #14 ecc 10/15/17 Donepezil [Aricept] 15 mg PO DAILY #21 tab 10/15/17 Fenofibrate [Tricor] 48 mg PO DAILY #7 tab 10/15/17 LORazepam [Ativan] 1 mg PO TID #42 tab 10/15/17 Pantoprazole [Protonix EC Tab] 20 mg PO 0600 #7 ect 10/15/17 Quetiapine Fumarate [Seroquel] 400 mg PO HS #14 tablet 10/15/17 Zaleplon [Sonata] 5 mg PO HS PRN #14 cap 10/15/17 amLODIPine [Norvasc] 10 mg PO DAILY #7 tab 10/15/17 metFORMIN [glucOPHAGE] 500 mg PO BID #14 tab 10/15/17 Paliperidone Palmitate [Invega Sustenna] 234 mg IM Q30D #1 ser 12/01/17 Mental Status Examination - Personal Presentation Personal Presentation: Looks stated age - Affect Affect: Constricted - Motor Activity Motor Activity: Calm - Reliability in Providing Information Reliability in Providing Information: Fair - Speech Speech: Organized - Mood Mood: Depressed, Anxious - Formal Thought Process Formal Thought Process: No Impairment - Obsessions/Compulsions Obsessions: No Compulsions: No - Cognitive Functions Orientation: Person, Place, Situation Attention/Concentration: Easily distracted Estimate of Intelligence: Average Judgement: Imparied, as evidence by: Poor judgement, Imparied, as evidence by: Lack of insight into illness - Risk Risk: Suicidal DSM 5 DX - DSM 5 DSM 5 Diagnosis: Schizoaffective Disorder Grief reaction - Recommended/Plan of Treatment Treatment Recommendations and Plan of Treatment: * group, milieu and supportive tx * Cymbalta 60 mg po daily for anxiety and depression * Ativan 1 mg po QID for anxiety * Sonata 5 mg po HS for insomnia * Cogentin 0.5 mg po daily for EPS prophylaxis * Awaiting medical f/u * Continue to hold Seroquel and Invega, Qtc =[address] Albin Velazquez. Requesting daily EKGs * Vitals reviewed and noted below: Selected Entries 12/02/17 12/02/17 07:20 08:23 Temperature 98.4 F Pulse Rate 92 H Respiratory 20 Rate Blood Pressure 142/93 H 142/93 H * New floor labs noted below: 12/02/17 12/02/17 07:15 07:15 Triglycerides 273 H Cholesterol 240 H LDL Cholesterol Direct 134 H HDL Cholesterol 48 Free T4 0.52 L TSH 3rd Generation 1.71 - Smoking Cessation Smoking Cessation Initiated: Yes
--- NOTE | 2017-12-02 13:58 | CARD ---
APPROVED REPORT Date of service: 12/02/2017 EKG Measurement Heart [id number] <Conclusion> Normal sinus rhythm ST abnormality, possible digitalis effect Abnormal ECG
[2017-12-02] MEDS ORDERED: Alum-Mag Hydrox-Simethicone Susp (30 mL) PO PRN (14:25)
[2017-12-03] MEDS: Pantoprazole 20 mg EC Tab PO SCH (06:10)
[2017-12-03 07:30] LABS: HEMOGLOBIN 14.5 g/dL (12.0-16.0); MEAN CORPUSCULAR HEMOGLOBIN 30.6 pg (25.0-35.0); MEAN CORPUSCULAR HGB CONC 33.3 g/dl (31.0-37.0); MEAN PLATELET VOLUME 10.2 fl (7.0-11.0); RBC 4.74 10^6/uL (3.5-6.1); RED CELL DISTRIBUTION WIDTH 13.7 % (11.5-14.5); WHITE BLOOD COUNT 6.1 10^3/ul (4.5-11.0)
[2017-12-03 08:03] LABS: ALB/GLOB RATIO 1.5 (1.1-1.8); ALBUMIN 4.4 g/dL (3.0-4.8); ALT/SGPT 26 U/L (7-56); AST/SGOT 27 U/L (14-36); BLOOD UREA NITROGEN 19 mg/dL (7-21); CALCIUM 9.7 mg/dL (8.4-10.5); GFR AFRICAN-AMERICAN > 60; GFR NON-AFRICAN AMERICAN > 60
--- NOTE | 2017-12-03 12:57 | PN ---
Copied To: Avelino Antoine DO Attending MD: Avelino Antoine DO DATE: 12/03/2017 SUBJECTIVE: I saw her resting comfortably in bed. She slept well last night. She is in fair spirits. She is on Aricept, Ativan, Cogentin, Cymbalta, Ecotrin, Glucophage, Maalox, Norvasc, Pepcid, Protonix, Sonata, and TriCor. She has no shortness of breath. No chest pain or abdominal pain. She is trying to participate in groups. She is taking her medication. She was little bit more animated yesterday than this morning. PHYSICAL EXAMINATION: VITAL SIGNS: She has 98 temperature, 66 pulse, blood pressure is quite high at 153/100. I will change her medications given for her hypertension, and 20 respiratory rate. HEENT: Head is atraumatic, normocephalic. HEART: Regular rate. LUNGS: Clear to auscultation. ABDOMEN: Soft, obese, nontender. EXTREMITIES: No edema. She is currently on Norvasc 10. I will have to add another medication to her list. Last labs on 12/03/2017 and she did well. Last blood sugar was 101. She has 140 sodium, potassium 4.4, BUN 90, creatinine 0.6, GFR is greater than 60, sugar is 101, calcium is 9.7, AST is 27, ALT is 26, alk phos 62, total protein 7.3, albumin is 4.4. White count 6.1, hemoglobin 14.5, hematocrit 43.6, platelets of 315. RPR was nonreactive. She is being seen by Psychiatry and they are adjusting the medications. We will continue to watch her blood pressure. I will continue with aggressive treatment and care. She is with major depression, hypertension, diabetes and gastroesophageal reflux disease. I will have to adjust the medications for the blood pressure. Avelino Antoine DO
--- NOTE | 2017-12-03 14:10 | PCM.PYCHPN ---
Psychiatric Progress Note - Psychiatric Progress Note Patient seen today, length of contact: 30min Patient Chief Complaint: "I am taking one day at the time, I need to come to terms that my son is gone". Problems Identified/Issues Discussed: Suicide/ homicide prevention, past psychiatric h/o, current psychiatric symptoms , medical problems, risk/benefits and alternatives of medications, medications compliance, coping strategies, substance abuse h/o, relapse prevention, importance of follow up with psychiatrist and therapist, discharge plan. Medical Problems: see HPI notes. Diagnostic Results: 12/03/17 07:15 12/03/17 07:15 Lab Results 12/03/17 07:40: POC Glucose (mg/dL) 90 12/03/17 07:15: Sodium 140, Potassium 4.4, Chloride 106, Carbon Dioxide 25, Anion Gap 13, BUN 19, Creatinine 0.6 L, Est GFR ( Amer) > 60, Est GFR ( Non-Af Amer) > 60, Random Glucose 101, Calcium 9.7, Total Bilirubin 0.5, AST 27 , ALT 26, Alkaline Phosphatase 62, Total Protein 7.3, Albumin 4.4, Globulin 2.9 , Albumin/Globulin Ratio 1.5 12/03/17 07:15: WBC 6.1, RBC 4.74, Hgb 14.5, Hct 43.6, MCV 92.0, MCH 30.6, MCHC 33.3, RDW 13.7, Plt Count 315, MPV 10.2 12/02/17 20:58: POC Glucose (mg/dL) 134 H 12/02/17 16:16: POC Glucose (mg/dL) 111 H 12/02/17 11:32: POC Glucose (mg/dL) 75 12/02/17 07:31: POC Glucose (mg/dL) 93 12/02/17 07:15: RPR Nonreactive 12/02/17 07:15: Triglycerides 273 H, Cholesterol 240 H, LDL Cholesterol Direct 134 H, HDL Cholesterol 48 12/02/17 07:15: Free T4 0.52 L, TSH 3rd Generation 1.71 12/01/17 21:07: POC Glucose (mg/dL) 132 H Vital Signs Temp Pulse Resp BP 12/03/17 12:44 100 H 167/107 H 12/03/17 08:20 153/100 H 12/03/17 07:08 98.0 F 66 20 153/100 H 12/02/17 16:00 102 H 146/96 H 12/02/17 08:23 142/93 H 12/02/17 07:20 98.4 F 92 H 20 142/93 H DSM 5 Symptoms Update: Shortly pt is a 62-year-old female with a long history of schizoaffective disorder, numerous psychiatric admissions both involuntary and voluntary- most recently [facility], 10/05/17-10/15/17 (after the of her 31-year-old son due to pancreatic/liver cancer), history of inconsistent compliance with outpatient follow-up and medication who was transferred from the medical floor after treatment of SA by overdosing on (14) 400 mg Seroquel tablets. at the time of initial evaluation pt had no remorse over her action, reported to be hopeless, helpless, worthless, pt also keep asking questions "why me?", pt also was very angry towards others, pt also express angry feeling towards electric relay tester, "they told me to pray, I am praying and what?". pt was seen at the tx team meeting, improved personal hygiene, pt has transient feeling of hopelessness, helplessness, but presented little better to compare with ICU consult. pt said that now she has future oriented plans, pt said she wants to be helpful for elderly population and she wants to help people to do some sopping, do laundry. pt's EKG reviewed, Qtc is trending down 11/30/17 529, 12/02/17 449. pt ambulating, not express any discomfort, no chest pain no SOB. will give her Invega sustenna as soon as EKG repeated today and shows normal limits. as per staff pt is compliant with meds and unit rules and regulations. today pt said "I am taking one day at the time, I need to come to terms that my son is gone". so far pt tolerates meds well, no side effects observed or reported. AIMS 0, no EPS. IMpression: schizoaffective disorder s/p overdose, intentional. Medication Change: Yes (invega was ordered) Medical Record Reviewed: Yes Consults ordered or reviewed: medical consult appreciated Mental Status Examination - Cognitive Function Orientation: Person, Place, Situation Memory: Intact Attention: Poor Concentration: Poor Association: WNL Fund of Knowledge: WNL - Mood Mood: Depressed, Anxious - Affect Affect: Constricted - Formal Thought Process Formal Thought Process: No Impairment - Suicidal Ideation Suicidal Ideation: No - Homicidal Ideation Homicidal Ideation: No Goal/Treatment Plan - Goal/Treatment Plan Need for Continued Stay: Remain at risks for inpatient hospitalization, Severe depression anxiety, Discharge may exacerbated symptoms, Severe functional impairment Progress Toward Problem(s) and Goals/Treatment Plan: Milieu/structure/supportive therapy Medical consult appreciated, see medical team note for more detailed info SW consultation for discharge plan and social issues Med management will hold Invega (called in to [facility] pharmacy), will check EKG today seroquel will be on hold the rest will be continued (ativan, sonata, symbalta) Family involvement Follow up on labs Will monitor closely Pt was educated about risk/benefits and alternatives of medications, coping strategies (safety plan, suicide prevention), relapse prevention, importance of follow up with psychiatrist and therapist, stay away from drugs/alcohol/smoking Estimated Date of D/C: 12/08/17
--- NOTE | 2017-12-03 19:21 | CARD ---
APPROVED REPORT Date of service: 12/03/2017 EKG Measurement Heart [id number] [id number] <Conclusion> Normal sinus rhythm Prolonged QT Abnormal ECG
[2017-12-04] MEDS: Pantoprazole 20 mg EC Tab PO SCH (09:47)
--- NOTE | 2017-12-04 10:30 | PCM.PYCHPN ---
Psychiatric Progress Note - Psychiatric Progress Note Patient seen today, length of contact: 30min Problems Identified/Issues Discussed: History of Present Illness and Precipitating Events: Patient is a 62-year-old female with a long history of schizoaffective disorder, numerous psychiatric admissions both involuntary and voluntary- most recently [facility], 10/05/17-10/15/17 (after the of her 31-year -old son due to pancreatic/liver cancer), history of inconsistent compliance with outpatient follow-up and medication who was transferred from the medical floor after treatment of SA by overdosing on (14) 400 mg Seroquel tablets. Records indicate that patient was forthcoming in that she took this overdose in order to and patient did not show remorse for her actions. Dr. More consulted with patient while she was medically stabilized and recommended a psychiatric inpatient stabilization. Pharmacy was contacted and following medications were confirmed: Invega Sustenna 234 mg IM due 12/01/17 Ativan 1 mg po TID Sonata 5 mg HS prn Cogentin 0.5 mg po daily Cymbalta 60 mg po daily Donepezil 5 mg po daily Seroquel 400 mg po HS Invega Sustenna 234 mg IM and Seroquel 400 mg HS were held due to prolonged QT. This value is approximately 367 this morning, an improvement from prior values of 464 and 529. I met with patient at bedside this morning. She is alert and oriented to month, year, location and circumstances. She is fairly cooperative and reports that she remains depressed and anxious. Her affect is constricted and patient's responses are coherent and relevant. Patient denies having any suicidal thoughts at this time though endorses symptoms of low mood, low frustration tolerance, lability, low energy and motivation. Patient is tolerating medications that were continued. She denies any new discomfort, pain or side effects. She is not experiencing any hallucinations and does not appear to be responding to internal stimuli. Thus far they have been no behavioral issues on the unit and she is cooperative with treatment recommendations. PSYCHIATRIC HISTORY Most recent psychiatric admission was October 05 to October 15, 2017 at [facility]. She was discharged on: Invega Sustenna 234 mg IM (NEXT DOSE DUE 12/01/17) Benztropine 0.5 mg PO BID Cymbalta 60 mg PO DAILY Ativan 1 mg PO TID Seroquel 400 mg PO HS Sonata 5 mg PO HS PRN Patient also had a prolonged hospitalization at [place] for four months with discharge on September 13, 2017. Prior records also indicate the patient had been previously hospitalized [facility] for four years. Patient has a prior suicide attempts by overdosing in the 1989's and . Patient has a history of aggressive behaviors Patient also has a history of IOC (court mandated outpatient treatment) and injections. SOCIAL HISTORY Patient lives with her boyfriend of nine years. She is unemployed. She has a 41- year-old daughter and two grandchildren. Patient also had a son who was 31 years old when he of pancreatic/liver cancer approximately three months ago. Patient has a history of crack cocaine and prescription pill abuse until 2007. She was sent to detention for year at that time and then transfer to [facility] for four years. Patient denies any current drug or alcohol use. Patient reports that she smokes three packs of cigarettes daily. I reviewed morbidity and mortality risk of continued tobacco use with patient and offered patient nicotine patch which she accepted. PROGRESS NOTE I met with patient at bedside this morning. She is alert and oriented to month, year, location and circumstances. She is fairly cooperative and reports that she remains depressed and anxious. Her affect is constricted and patient's responses are coherent and relevant. Patient denies having any suicidal thoughts at this time though endorses symptoms of moodiness and low energy. She is future oriented and has been working with regarding aftercare plans. Patient is tolerating medications that were continued. She denies any new discomfort, pain or side effects. She is not experiencing any hallucinations and does not appear to be responding to internal stimuli. Thus far they have been no behavioral issues on the unit and she is cooperative with treatment recommendations. Diagnostic Results: Schizoaffective Disorder Grief reaction Medication Change: No ( ) Medical Record Reviewed: Yes Mental Status Examination - Cognitive Function Orientation: Person, Place, Situation Memory: Intact Attention: WNL Concentration: WNL Association: WNL Fund of Knowledge: WNL - Mood Mood: Depressed, Anxious - Affect Affect: Constricted - Speech Speech: Appropriate - Formal Thought Process Formal Thought Process: No Impairment - Suicidal Ideation Suicidal Ideation: No - Homicidal Ideation Homicidal Ideation: No Goal/Treatment Plan - Goal/Treatment Plan Need for Continued Stay: Remain at risks for inpatient hospitalization, Severe depression anxiety, Discharge may exacerbated symptoms, Severe functional impairment Progress Toward Problem(s) and Goals/Treatment Plan: * group, milieu and supportive tx * Cymbalta 60 mg po daily for anxiety and depression * Ativan 1 mg po QID prn for anxiety * Sonata 5 mg po HS for insomnia * Cogentin 0.5 mg po daily for EPS prophylaxis * Awaiting medical f/u * Continue to hold Seroquel and Invega, Requesting daily EKGs, awaiting medical f/u by Dr. Antoine. * Vitals reviewed and noted below: Selected Entries 12/04/17 12/04/17 06:37 09:47 Temperature 98.4 F Pulse Rate 104 H 104 H Respiratory 20 Rate Blood Pressure 140/83 140/83 * No new floor lab results noted thus far this weekend. Estimated Date of D/C: 12/08/17
--- NOTE | 2017-12-04 18:30 | PN ---
Copied To: Avelino Antoine DO Attending MD: Avelino Antoine DO DATE: 12/04/2017 SUBJECTIVE: I saw Sena walking around the 5B Psychiatric floor. She is on Aricept, Ativan, Cogentin, Cozaar, Cymbalta, Ecotrin, Glucophage, Maalox, Norvasc, Pepcid, Protonix, Sonata, and TriCor. She is doing well. No chest pain, no shortness of breath, no abdominal pain. She is eating well. She is in good spirits. She does not have a suicidal thought at this time. PHYSICAL EXAMINATION: VITAL SIGNS: She has 98.4 temperature, 104 pulse, 140/83 blood pressure, 20 respiratory rate. HEENT: Head is atraumatic, normocephalic. HEART: Regular rate. LUNGS: Clear to auscultation. ABDOMEN: Soft, obese. EXTREMITIES: No edema. MEDICATIONS: She is currently on Aricept, Ativan, Cogentin, Cozaar, Cymbalta, Ecotrin, Glucophage, Maalox, Norvasc, Pepcid, Protonix, Sonata, and TriCor. LABORATORY DATA: Last labs of yesterday, the CBC was good, the chemistry was good. The last blood sugar was 99. RPR was nonreactive. She is being seen by Psychiatry. She has an EKG caused a concern about the QT interval because she overdosed and the QT interval was prolonged at 472. We will check an EKG tomorrow. I asked her to drink more fluids during the day and if it comes down, then we could consider other medications, so we can add the Seroquel on right now. I will check her labs water, check an EKG tomorrow. Avelino Antoine DO MTDD
[2017-12-05] MEDS: Pantoprazole 20 mg EC Tab PO SCH (06:57)
[2017-12-05 07:28] VITALS: TEMP 98.1
[2017-12-05 07:44] LABS: HEMOGLOBIN 14.1 g/dL (12.0-16.0); MEAN CELL VOLUME 92.3 fl (80.0-105.0); MEAN CORPUSCULAR HEMOGLOBIN 30.3 pg (25.0-35.0); MEAN CORPUSCULAR HGB CONC 32.9 g/dl (31.0-37.0); MEAN PLATELET VOLUME 10.5 fl (7.0-11.0); RBC 4.65 10^6/uL (3.5-6.1); RED CELL DISTRIBUTION WIDTH 13.6 % (11.5-14.5); WHITE BLOOD COUNT 5.1 10^3/ul (4.5-11.0)
[2017-12-05 07:55] LABS: ALB/GLOB RATIO 1.5 (1.1-1.8); ALBUMIN 4.3 g/dL (3.0-4.8); ALT/SGPT 25 U/L (7-56); AST/SGOT 21 U/L (14-36); BLOOD UREA NITROGEN 21 mg/dL (7-21); CALCIUM 9.5 mg/dL (8.4-10.5); GFR AFRICAN-AMERICAN > 60; GFR NON-AFRICAN AMERICAN > 60
--- NOTE | 2017-12-05 09:58 | PCM.PYCHPN ---
Psychiatric Progress Note - Psychiatric Progress Note Patient seen today, length of contact: 30min Problems Identified/Issues Discussed: History of Present Illness and Precipitating Events: Patient is a 62-year-old female with a long history of schizoaffective disorder, numerous psychiatric admissions both involuntary and voluntary- most recently [facility], 10/05/17-10/15/17 (after the of her 31-year -old son due to pancreatic/liver cancer), history of inconsistent compliance with outpatient follow-up and medication who was transferred from the medical floor after treatment of SA by overdosing on (14) 400 mg Seroquel tablets. Records indicate that patient was forthcoming in that she took this overdose in order to and patient did not show remorse for her actions. Dr. More consulted with patient while she was medically stabilized and recommended a psychiatric inpatient stabilization. Pharmacy was contacted and following medications were confirmed: Invega Sustenna 234 mg IM due 12/01/17 Ativan 1 mg po TID Sonata 5 mg HS prn Cogentin 0.5 mg po daily Cymbalta 60 mg po daily Donepezil 5 mg po daily Seroquel 400 mg po HS Invega Sustenna 234 mg IM and Seroquel 400 mg HS were held due to prolonged QT. This value is approximately 367 this morning, an improvement from prior values of 464 and 529. I met with patient at bedside this morning. She is alert and oriented to month, year, location and circumstances. She is fairly cooperative and reports that she remains depressed and anxious. Her affect is constricted and patient's responses are coherent and relevant. Patient denies having any suicidal thoughts at this time though endorses symptoms of low mood, low frustration tolerance, lability, low energy and motivation. Patient is tolerating medications that were continued. She denies any new discomfort, pain or side effects. She is not experiencing any hallucinations and does not appear to be responding to internal stimuli. Thus far they have been no behavioral issues on the unit and she is cooperative with treatment recommendations. PSYCHIATRIC HISTORY Most recent psychiatric admission was October 05 to October 15, [address] [facility]. She was discharged on: Invega Sustenna 234 mg IM (NEXT DOSE DUE 12/01/17) Benztropine 0.5 mg PO BID Cymbalta 60 mg PO DAILY Ativan 1 mg PO TID Seroquel 400 mg PO HS Sonata 5 mg PO HS PRN Patient also had a prolonged hospitalization at [place] for four months with discharge on September 13, 2017. Prior records also indicate the patient had been previously hospitalized [facility] for four years. Patient has a prior suicide attempts by overdosing in the 1989's and . Patient has a history of aggressive behaviors Patient also has a history of IOC (court mandated outpatient treatment) and injections. SOCIAL HISTORY Patient lives with her boyfriend of nine years. She is unemployed. She has a 41- year-old daughter and two grandchildren. Patient also had a son who was 31 years old when he of pancreatic/liver cancer approximately three months ago. Patient has a history of crack cocaine and prescription pill abuse until 2007. She was sent to halfway for year at that time and then transfer to [facility] for four years. Patient denies any current drug or alcohol use. Patient reports that she smokes three packs of cigarettes daily. I reviewed morbidity and mortality risk of continued tobacco use with patient and offered patient nicotine patch which she accepted. PROGRESS NOTE I met with patient at bedside this morning. She is alert and remains oriented to month, year, location and circumstances. She is fairly cooperative and reports that she continues to feel depressed and anxious. She received two prns of ativan yesterday for anxiety with good effect. Anxiety relieved. Her affect is constricted and patient's responses are coherent and relevant. Patient denies having any suicidal thoughts at this time though endorses symptoms of moodiness and low energy. She is future oriented and has been working with regarding aftercare plans. Patient is tolerating medications that were continued. She denies any new discomfort, pain or side effects. She is not experiencing any hallucinations and does not appear to be responding to internal stimuli. Thus far they have been no behavioral issues on the unit and she is cooperative with treatment recommendations. Diagnostic Results: Schizoaffective Disorder Grief reaction Medication Change: No ( ) Medical Record Reviewed: Yes Mental Status Examination - Cognitive Function Orientation: Person, Place, Situation Memory: Intact Attention: WNL Concentration: WNL Association: WNL Fund of Knowledge: WNL - Mood Mood: Depressed, Anxious - Affect Affect: Constricted - Speech Speech: Appropriate - Formal Thought Process Formal Thought Process: No Impairment - Suicidal Ideation Suicidal Ideation: No - Homicidal Ideation Homicidal Ideation: No Goal/Treatment Plan - Goal/Treatment Plan Need for Continued Stay: Remain at risks for inpatient hospitalization, Severe depression anxiety, Discharge may exacerbated symptoms, Severe functional impairment Progress Toward Problem(s) and Goals/Treatment Plan: * group, milieu and supportive tx * Cymbalta 60 mg po daily for anxiety and depression * Ativan 1 mg po QID prn for anxiety * Sonata 5 mg po HS for insomnia * Cogentin 0.5 mg po daily for EPS prophylaxis * Awaiting medical f/u * Continue to hold Seroquel and Invega, Requesting daily EKG. I appreciate Doctor Antoine's follow up as well as nursing notes from yesterday. Seroquel and Invega Sustenna IM are still on hold due to elevated QTc. Daily EKGs ordered and awaiting results today. * Patient also had elevated BPs yesterday. Nursing contacted the resident, Doctor Quach. Dr. Quach advised to call back if patient is showing symptoms or systolic BP over 180. Will continue to monitor. Vitals reviewed and noted below: Selected Entries 12/03/17 12/03/17 12/03/17 07:08 08:20 12:44 Temperature 98.0 F Pulse Rate 66 100 H Respiratory 20 Rate Blood Pressure 153/100 H 153/100 H 167/107 H 12/03/17 12/04/17 12/04/17 16:30 06:37 09:47 Temperature 98.4 F Pulse Rate 94 H 104 H 104 H Respiratory 20 Rate Blood Pressure 161/95 H 140/83 140/83 12/04/17 12/05/17 12/05/17 16:30 07:27 08:56 Temperature 98.1 F Pulse Rate 98 H 73 73 Respiratory 20 Rate Blood Pressure 176/108 H 141/92 H * New floor lab results noted this weekend: Laboratory Results - last 24 hr 12/05/17 12/05/17 06:30 06:30 WBC 5.1 RBC 4.65 Hgb 14.1 Hct 42.9 MCV 92.3 MCH 30.3 MCHC 32.9 RDW 13.6 Plt Count 278 MPV 10.5 Sodium 142 Potassium 4.0 Chloride 108 H Carbon Dioxide 23 Anion Gap 15 BUN 21 Creatinine 0.6 L Est GFR ( Amer) > 60 Est GFR (Non-Af Amer) > 60 Random Glucose 113 H Calcium 9.5 Total Bilirubin 0.4 AST 21 ALT 25 Alkaline Phosphatase 59 Total Protein 7.2 Albumin 4.3 Globulin 2.9 Albumin/Globulin Ratio 1.5 Estimated Date of D/C: 12/08/17
--- NOTE | 2017-12-05 11:07 | PN ---
Copied To: Avelino Antoine DO Attending MD: Avelino Antoine DO DATE: 12/05/2017 SUBJECTIVE: I saw her in the psychiatric floor, walking around. We had a nice talk. She is feeling well. No chest pain or shortness of breath. No abdominal pain. Her depression is better. We are waiting for an EKG to be done this morning, so we could see if she could be put on the injectable because she overdosed on Seroquel. It prolonged the QT interval. Waiting for that to get out of her system. I encouraged her to drink lots more water to help dilute this out. Otherwise, she is comfortable, feeling better overall. PHYSICAL EXAMINATION: VITAL SIGNS: 98.1 temp; 73 pulse; 141/92 blood pressure, it was as high as 169/116 last night, I will adjust the blood pressure medications again; 20 respiratory rate. HEENT: The head is atraumatic, normocephalic. HEART: Regular rate. LUNGS: Decreased breath sounds, but clear. ABDOMEN: Soft, obese, nontender. EXTREMITIES: No edema. LABORATORY DATA: She had some blood tests today. She has a 5.1 white count, 14.1 hemoglobin, 42.9 hematocrit with 278 platelets. 142 sodium, potassium is 4, BUN is 21, creatinine is 0.6, GFR is greater than 60, sugar is 113, calcium is 9.5, total bili is 0.4, AST is 21, ALT is 25, alk phos 59, total protein 7.2. ASSESSMENT AND PLAN: She is being seen by Psychiatry. I am waiting for the EKG to be resulted. I am also going to adjust her blood pressure pills. She is currently on Norvasc 10 and Cozaar 25, I will increase the 25 to 50 and keep on increasing it depending on how she is doing. We will watch her blood pressure. Waiting for the EKG to come back. Continue aggressive treatment and care on Sena Toribio who has depression, hypertension, overdosed on Seroquel, diabetes, gastroesophageal reflux disease, prolonged QT interval. We will check an EKG, wait for the result. Avelino Antoine DO [facility] # [id number]
--- NOTE | 2017-12-05 15:28 | CARD ---
APPROVED REPORT Date of service: 12/05/2017 EKG Measurement Heart [id number] <Conclusion> Normal sinus rhythm with sinus arrhythmia Normal ECG
[2017-12-06] MEDS: Pantoprazole 20 mg EC Tab PO SCH (09:06)
--- NOTE | 2017-12-06 10:57 | PCM.PYCHPN ---
Psychiatric Progress Note - Psychiatric Progress Note Patient seen today, length of contact: 30min Problems Identified/Issues Discussed: History of Present Illness and Precipitating Events: Patient is a 62-year-old female with a long history of schizoaffective disorder, numerous psychiatric admissions both involuntary and voluntary- most recently [facility], 10/05/17-10/15/17 (after the of her 31-year -old son due to pancreatic/liver cancer), history of inconsistent compliance with outpatient follow-up and medication who was transferred from the medical floor after treatment of SA by overdosing on (14) 400 mg Seroquel tablets. Records indicate that patient was forthcoming in that she took this overdose in order to and patient did not show remorse for her actions. Dr. More consulted with patient while she was medically stabilized and recommended a psychiatric inpatient stabilization. Pharmacy was contacted and following medications were confirmed: Invega Sustenna 234 mg IM due 12/01/17 Ativan 1 mg po TID Sonata 5 mg HS prn Cogentin 0.5 mg po daily Cymbalta 60 mg po daily Donepezil 5 mg po daily Seroquel 400 mg po HS Invega Sustenna 234 mg IM and Seroquel 400 mg HS were held due to prolonged QT. This value is approximately 367 this morning, an improvement from prior values of 464 and 529. I met with patient at bedside this morning. She is alert and oriented to month, year, location and circumstances. She is fairly cooperative and reports that she remains depressed and anxious. Her affect is constricted and patient's responses are coherent and relevant. Patient denies having any suicidal thoughts at this time though endorses symptoms of low mood, low frustration tolerance, lability, low energy and motivation. Patient is tolerating medications that were continued. She denies any new discomfort, pain or side effects. She is not experiencing any hallucinations and does not appear to be responding to internal stimuli. Thus far they have been no behavioral issues on the unit and she is cooperative with treatment recommendations. PSYCHIATRIC HISTORY Most recent psychiatric admission was October 05 to October 15, 2017 at [facility]. She was discharged on: Invega Sustenna 234 mg IM (NEXT DOSE DUE 12/01/17) Benztropine 0.5 mg PO BID Cymbalta 60 mg PO DAILY Ativan 1 mg PO TID Seroquel 400 mg PO HS Sonata 5 mg PO HS PRN Patient also had a prolonged hospitalization at [place] for four months with discharge on September 13, 2017. Prior records also indicate the patient had been previously hospitalized [facility] for four years. Patient has a prior suicide attempts by overdosing in the 1989's and . Patient has a history of aggressive behaviors Patient also has a history of IOC (court mandated outpatient treatment) and injections. SOCIAL HISTORY Patient lives with her boyfriend of nine years. She is unemployed. She has a 41- year-old daughter and two grandchildren. Patient also had a son who was 31 years old when he of pancreatic/liver cancer approximately three months ago. Patient has a history of crack cocaine and prescription pill abuse until 2007. She was sent to care home for year at that time and then transfer to [facility] for four years. Patient denies any current drug or alcohol use. Patient reports that she smokes three packs of cigarettes daily. I reviewed morbidity and mortality risk of continued tobacco use with patient and offered patient nicotine patch which she accepted. PROGRESS NOTE I met with patient at bedside this morning. She is alert and remains oriented to month, year, location and circumstances. She is fairly cooperative and reports that she continues to feel depressed and anxious however her symptoms are improving. Her affect is a little brighter, more aware and focused since admission. She seems less apathetic and preoccupied. Her responses reamin coherent and relevant. Patient denies having any suicidal thoughts at this time and feels more hopeful than hopeless. She is feeling more and more comfortable with the thought of discharge later this week. Notes indicate that she is future oriented and has been working with regarding aftercare plans. She received two prns of ativan on Wednesday for anxiety with good effect. Patient is tolerating medications that were continued. She denies any new discomfort, pain or side effects. She is not experiencing any hallucinations and does not appear to be responding to internal stimuli. Thus far they have been no behavioral issues on the unit and she is cooperative with treatment recommendations. Aware that Sustenna and Seroquel have been held due to abnormal EKG results. No increase in disorganization has been observed. Diagnostic Results: Schizoaffective Disorder Grief reaction Medication Change: No ( ) Medical Record Reviewed: Yes Mental Status Examination - Cognitive Function Orientation: Person, Place, Situation Memory: Intact Attention: WNL Concentration: WNL Association: WNL Fund of Knowledge: WNL - Mood Mood: Depressed, Anxious - Affect Affect: Constricted - Speech Speech: Appropriate - Formal Thought Process Formal Thought Process: No Impairment - Suicidal Ideation Suicidal Ideation: No - Homicidal Ideation Homicidal Ideation: No Goal/Treatment Plan - Goal/Treatment Plan Need for Continued Stay: Remain at risks for inpatient hospitalization, Severe depression anxiety, Discharge may exacerbated symptoms, Severe functional impairment Progress Toward Problem(s) and Goals/Treatment Plan: * group, milieu and supportive tx * Cymbalta 60 mg po daily for anxiety and depression * Ativan 1 mg po QID prn for anxiety * Sonata 5 mg po HS for insomnia * Cogentin 0.5 mg po daily for EPS prophylaxis * Appreciate f/u by Dr. Antoine today regarding elevated BPs and Dr. Antoine is increasing Cozaar to 100 mg as her BP continue to be elevated on the unit. * Requesting daily EKG. I appreciate Doctor Antoine's follow up regarding patient 's elevated QTc, as well as nursing notes from yesterday and today. QTc is wnl today and patient was cleared to receive Sustenna and c/w Seroquel. Will provide Invega Sustenna 234 mg IM today and hold on Seroquel at this time. I phoned pharmacy today and confirmed this dose, she has been receiving 234 mg IM monthly since September 2017. * Will continue to monitor. Vitals reviewed and noted below: Selected Entries 12/05/17 12/06/17 15:00 09:05 Pulse Rate 88 88 Respiratory 20 Rate Blood Pressure 152/92 H 152/92 H Selected Entries 12/03/17 12/03/17 12/03/17 07:08 08:20 12:44 Temperature 98.0 F Pulse Rate 66 100 H Respiratory 20 Rate Blood Pressure 153/100 H 153/100 H 167/107 H 12/03/17 12/04/17 12/04/17 16:30 06:37 09:47 Temperature 98.4 F Pulse Rate 94 H 104 H 104 H Respiratory 20 Rate Blood Pressure 161/95 H 140/83 140/83 12/04/17 12/05/17 12/05/17 16:30 07:27 08:56 Temperature 98.1 F Pulse Rate 98 H 73 73 Respiratory 20 Rate Blood Pressure 176/108 H 141/92 H * New floor lab results noted this weekend: Laboratory Results - last 24 hr 12/05/17 12/05/17 06:30 06:30 WBC 5.1 RBC 4.65 Hgb 14.1 Hct 42.9 MCV 92.3 MCH 30.3 MCHC 32.9 RDW 13.6 Plt Count 278 MPV 10.5 Sodium 142 Potassium 4.0 Chloride 108 H Carbon Dioxide 23 Anion Gap 15 BUN 21 Creatinine 0.6 L Est GFR ( Amer) > 60 Est GFR (Non-Af Amer) > 60 Random Glucose 113 H Calcium 9.5 Total Bilirubin 0.4 AST 21 ALT 25 Alkaline Phosphatase 59 Total Protein 7.2 Albumin 4.3 Globulin 2.9 Albumin/Globulin Ratio 1.5 Estimated Date of D/C: 12/08/17
--- NOTE | 2017-12-06 11:53 | PN ---
Copied To: Avelino Antoine DO Attending MD: Avelino Antoine DO DATE: 12/06/2017 SUBJECTIVE: I saw her resting comfortably in bed this morning. She has slept well. She is eating well. She is starting to feel better overall. She is on Aricept, Ativan, Cogentin, Cozaar, Cymbalta, Ecotrin, Glucophage, Maalox, Norvasc, Pepcid, Protonix, Sonata and TriCor. PHYSICAL EXAMINATION: VITAL SIGNS: 98.1 temp; 73 pulse; 141/92 blood pressure, also was 169/116 blood pressure, the last one was 152/92 blood pressure, all the blood pressures are very high. HEENT: Head is atraumatic, normocephalic. HEART: Regular rate. LUNGS: Decreased breath sounds, but clear to auscultation. ABDOMEN: Soft, nontender, positive bowel sounds, obese. EXTREMITIES: Have no edema. LABORATORY DATA: She has 5.1 white count, 14.1 hemoglobin, 42.9 hematocrit with 278 platelets, 142 sodium, potassium 4, BUN 21, creatinine 0.6, GFR is greater than 60, sugar is 113, calcium is 9.5, total bili is 0.4, AST is 21, ALT is 25, alk phos 59, total protein is 7.2, albumin is 4.3. ASSESSMENT AND PLAN: She is currently on Cozaar 50 and Norvasc 10. I am going to increase the Cozaar to 100 as the blood pressure is quite high. If it is still high tomorrow, I will call in Cardiology opinion. We will adjust the blood pressure medications and we will see how she is doing. Also she had an EKG yesterday, we are looking for QT intervals and the QT interval is now lower, it is down to 414, it was 472, it is no longer prolonged, so if they want to give an injection, they can. I will have to call up Psychiatry and let them know. Avelino Antoine DO
[2017-12-06] MEDS ORDERED: INVEGA 234 MG IM ONE (17:00)
--- NOTE | 2017-12-06 17:26 | CARD ---
APPROVED REPORT Date of service: 12/06/2017 EKG Measurement Heart [id number] <Conclusion> Normal sinus rhythm Minimal voltage criteria for LVH, may be normal variant Nonspecific ST and T wave abnormality Abnormal ECG
[2017-12-07] MEDS: Pantoprazole 20 mg EC Tab PO SCH (06:31)
[2017-12-07 07:08] VITALS: BP 123/72; PULSE 63; RESP 19
--- NOTE | 2017-12-07 10:16 | PN ---
Copied To: Avelino Antoine DO Attending MD: Avelino Antoine DO DATE: 12/07/2017 SUBJECTIVE: I saw her resting comfortably in bed. She slept well. She is in good spirits. She is feeling better overall. Not much depression. She wants to go home. She is here for depression, prolonged QT interval, hypertension, diabetes, GERD and I believe she had an injection possibly. She has got Aricept, Ativan, Cogentin, Cozaar, Cymbalta, Ecotrin, Glucophage, Maalox, Norvasc, Pepcid, Protonix, Sonata and TriCor. PHYSICAL EXAMINATION: VITAL SIGNS: 98.1 temp, 63 pulse, 123/72 blood pressure, 19 respiratory rate. HEENT: Her head is atraumatic, normocephalic. HEART: Regular rate. LUNGS: Clear to auscultation. ABDOMEN: Soft, obese, nontender. EXTREMITIES: No edema. LABORATORY DATA: Last labs on 12/05/2017, the CBC was good. The chemistry was good. Last blood sugar was 119. She is being seen by Psychiatry. She has had an EKG yesterday, which showed normal sinus rhythm. ASSESSMENT AND PLAN: No longer a prolonged PT interval, so she can get injections if Psychiatry wants to give her a long-acting medication and as per Psychiatry. We will follow. Avelino Antoine DO
--- NOTE | 2017-12-07 13:45 | PCM.PYCHDC ---
Mental Status Examination - Mental Status Examination Orientation: Person, Place, Situation Memory: Intact Mood: Neutral Affect: Broad Speech: Appropriate Attention: WNL Concentration: WNL Association: WNL Fund of Knowledge: WNL Formal Thought Process: No Impairment Description of patient's judgement and insight: Much improved and fair I/J Psychotic Thoughts and Behaviors: Denied AVH, paranoia. delusion not elicited Suicidal Ideation: No Current Homicidal Ideation?: No Discharge Summary - Discharge Note Reason for Hospitalization: Patient is a 62-year-old female with a long history of schizoaffective disorder, numerous psychiatric admissions both involuntary and voluntary- most recently [facility], 10/05/17-10/15/17 (after the of her 31-year -old son due to pancreatic/liver cancer), history of inconsistent compliance with outpatient follow-up and medication who was transferred from the medical floor after treatment of SA by overdosing on (14) 400 mg Seroquel tablets. Records indicate that patient was forthcoming in that she took this overdose in order to and patient did not show remorse for her actions. Dr. More consulted with patient while she was medically stabilized and recommended a psychiatric inpatient stabilization. Laboratory Data: Abnormal Lab Results 12/06/17 12/06/17 12/06/17 11:54 16:18 21:13 POC Glucose (mg/dL) 85 102 119 H 12/07/17 07:28 POC Glucose (mg/dL) 94 Laboratory Tests 12/01/17 12/02/17 12/02/17 21:07 07:15 07:15 WBC RBC Hgb Hct MCV MCH MCHC RDW Plt Count MPV Sodium Potassium Chloride Carbon Dioxide Anion Gap BUN Creatinine Est GFR ( Amer) Est GFR (Non-Af Amer) POC Glucose (mg/dL) 132 H Random Glucose Calcium Total Bilirubin AST ALT Alkaline Phosphatase Total Protein Albumin Globulin Albumin/Globulin Ratio Triglycerides 273 H Cholesterol 240 H LDL Cholesterol Direct 134 H HDL Cholesterol 48 Free T4 0.52 L TSH 3rd Generation 1.71 RPR 12/02/17 12/02/17 12/02/17 07:15 07:31 11:32 WBC RBC Hgb Hct MCV MCH MCHC RDW Plt Count MPV Sodium Potassium Chloride Carbon Dioxide Anion Gap BUN Creatinine Est GFR ( Amer) Est GFR (Non-Af Amer) POC Glucose (mg/dL) 93 75 Random Glucose Calcium Total Bilirubin AST ALT Alkaline Phosphatase Total Protein Albumin Globulin Albumin/Globulin Ratio Triglycerides Cholesterol LDL Cholesterol Direct HDL Cholesterol Free T4 TSH 3rd Generation RPR Nonreactive 12/02/17 12/02/17 12/03/17 16:16 20:58 07:15 WBC 6.1 RBC 4.74 Hgb 14.5 Hct 43.6 MCV 92.0 MCH 30.6 MCHC 33.3 RDW 13.7 Plt Count 315 MPV 10.2 Sodium Potassium Chloride Carbon Dioxide Anion Gap BUN Creatinine Est GFR ( Amer) Est GFR (Non-Af Amer) POC Glucose (mg/dL) 111 H 134 H Random Glucose Calcium Total Bilirubin AST ALT Alkaline Phosphatase Total Protein Albumin Globulin Albumin/Globulin Ratio Triglycerides Cholesterol LDL Cholesterol Direct HDL Cholesterol Free T4 TSH 3rd Generation RPR 12/03/17 12/03/17 12/03/17 07:15 07:40 16:19 WBC RBC Hgb Hct MCV MCH MCHC RDW Plt Count MPV Sodium 140 Potassium 4.4 Chloride 106 Carbon Dioxide 25 Anion Gap 13 BUN 19 Creatinine 0.6 L Est GFR ( Amer) > 60 Est GFR (Non-Af Amer) > 60 POC Glucose (mg/dL) 90 99 Random Glucose 101 Calcium 9.7 Total Bilirubin 0.5 AST 27 ALT 26 Alkaline Phosphatase 62 Total Protein 7.3 Albumin 4.4 Globulin 2.9 Albumin/Globulin Ratio 1.5 Triglycerides Cholesterol LDL Cholesterol Direct HDL Cholesterol Free T4 TSH 3rd Generation RPR 12/03/17 12/04/17 12/04/17 21:14 07:18 11:09 WBC RBC Hgb Hct MCV MCH MCHC RDW Plt Count MPV Sodium Potassium Chloride Carbon Dioxide Anion Gap BUN Creatinine Est GFR ( Amer) Est GFR (Non-Af Amer) POC Glucose (mg/dL) 123 H 119 H 94 Random Glucose Calcium Total Bilirubin AST ALT Alkaline Phosphatase Total Protein Albumin Globulin Albumin/Globulin Ratio Triglycerides Cholesterol LDL Cholesterol Direct HDL Cholesterol Free T4 TSH 3rd Generation RPR 12/04/17 12/04/17 12/05/17 16:32 22:06 06:30 WBC 5.1 RBC 4.65 Hgb 14.1 Hct 42.9 MCV 92.3 MCH 30.3 MCHC 32.9 RDW 13.6 Plt Count 278 MPV 10.5 Sodium Potassium Chloride Carbon Dioxide Anion Gap BUN Creatinine Est GFR ( Amer) Est GFR (Non-Af Amer) POC Glucose (mg/dL) 94 110 Random Glucose Calcium Total Bilirubin AST ALT Alkaline Phosphatase Total Protein Albumin Globulin Albumin/Globulin Ratio Triglycerides Cholesterol LDL Cholesterol Direct HDL Cholesterol Free T4 TSH 3rd Generation RPR 12/05/17 12/05/17 12/05/17 06:30 07:19 11:48 WBC RBC Hgb Hct MCV MCH MCHC RDW Plt Count MPV Sodium 142 Potassium 4.0 Chloride 108 H Carbon Dioxide 23 Anion Gap 15 BUN 21 Creatinine 0.6 L Est GFR ( Amer) > 60 Est GFR (Non-Af Amer) > 60 POC Glucose (mg/dL) 103 96 Random Glucose 113 H Calcium 9.5 Total Bilirubin 0.4 AST 21 ALT 25 Alkaline Phosphatase 59 Total Protein 7.2 Albumin 4.3 Globulin 2.9 Albumin/Globulin Ratio 1.5 Triglycerides Cholesterol LDL Cholesterol Direct HDL Cholesterol Free T4 TSH 3rd Generation RPR 12/05/17 12/05/17 12/06/17 16:06 21:24 08:04 WBC RBC Hgb Hct MCV MCH MCHC RDW Plt Count MPV Sodium Potassium Chloride Carbon Dioxide Anion Gap BUN Creatinine Est GFR ( Amer) Est GFR (Non-Af Amer) POC Glucose (mg/dL) 97 105 91 Random Glucose Calcium Total Bilirubin AST ALT Alkaline Phosphatase Total Protein Albumin Globulin Albumin/Globulin Ratio Triglycerides Cholesterol LDL Cholesterol Direct HDL Cholesterol Free T4 TSH 3rd Generation RPR 12/06/17 12/06/17 12/06/17 11:54 16:18 21:13 WBC RBC Hgb Hct MCV MCH MCHC RDW Plt Count MPV Sodium Potassium Chloride Carbon Dioxide Anion Gap BUN Creatinine Est GFR ( Amer) Est GFR (Non-Af Amer) POC Glucose (mg/dL) 85 102 119 H Random Glucose Calcium Total Bilirubin AST ALT Alkaline Phosphatase Total Protein Albumin Globulin Albumin/Globulin Ratio Triglycerides Cholesterol LDL Cholesterol Direct HDL Cholesterol Free T4 TSH 3rd Generation RPR 12/07/17 07:28 WBC RBC Hgb Hct MCV MCH MCHC RDW Plt Count MPV Sodium Potassium Chloride Carbon Dioxide Anion Gap BUN Creatinine Est GFR ( Amer) Est GFR (Non-Af Amer) POC Glucose (mg/dL) 94 Random Glucose Calcium Total Bilirubin AST ALT Alkaline Phosphatase Total Protein Albumin Globulin Albumin/Globulin Ratio Triglycerides Cholesterol LDL Cholesterol Direct HDL Cholesterol Free T4 TSH 3rd Generation RPR Consultations:: List each consultation separately and include: 1. Reason for request. 2. Findings. 3. Follow-up Consultations: dr. ferris patient was cleared by cardiology (dr. ignacio) on day of discharge Summary of Hospital Course include:: 1. Description of specific treatment plan utilized for patients during their course of treatmen. 2. Summarize the time- course for resolution of acute symptoms and/or regressed behaviors. 3. Describe issues identified and worked on during hospitalization. 4. Describe medication utilized. 5. Describe medical problems identified and treated. 6. Reassessment of suicide risk Summary of Hospital Course: Patient is a 62-year-old female with a long history of schizoaffective disorder, numerous psychiatric admissions both involuntary and voluntary- most recently [facility], 10/05/17-10/15/17 (after the of her 31-year -old son due to pancreatic/liver cancer), history of inconsistent compliance with outpatient follow-up and medication who was transferred from the medical floor after treatment of SA by overdosing on (14) 400 mg Seroquel tablets. Records indicate that patient was forthcoming in that she took this overdose in order to and patient did not show remorse for her actions. Dr. More consulted with patient while she was medically stabilized and recommended a psychiatric inpatient stabilization. Pharmacy was contacted and following medications were confirmed: Invega Sustenna 234 mg IM due 12/01/17 Ativan 1 mg po TID Sonata 5 mg HS prn Cogentin 0.5 mg po daily Cymbalta 60 mg po daily Donepezil 5 mg po daily Seroquel 400 mg po HS PSYCHIATRIC HISTORY Most recent psychiatric admission was October 05 to October 15, 2017 at [facility]. She was discharged on: Invega Sustenna 234 mg IM (NEXT DOSE DUE 12/01/17) Benztropine 0.5 mg PO BID Cymbalta 60 mg PO DAILY Ativan 1 mg PO TID Seroquel 400 mg PO HS Sonata 5 mg PO HS PRN Patient also had a prolonged hospitalization at [place] for four months with discharge on September 13, 2017. Prior records also indicate the patient had been previously hospitalized [facility] for four years. Patient has a prior suicide attempts by overdosing in the 1989's and s. Patient has a history of aggressive behaviors Patient also has a history of IOC (court mandated outpatient treatment) and injections. SOCIAL HISTORY Patient lives with her boyfriend of nine years. She is unemployed. She has a 41- year-old daughter and two grandchildren. Patient also had a son who was 31 years old when he of pancreatic/liver cancer approximately three months ago. Patient has a history of crack cocaine and prescription pill abuse until 2007. She was sent to long-term for year at that time and then transfer to [facility] for four years. Patient denies any current drug or alcohol use. Patient reports that she smokes three packs of cigarettes daily. I reviewed morbidity and mortality risk of continued tobacco use with patient and offered patient nicotine patch which she accepted. patient was F/u by Dr. Ferris regarding elevated BPs, increasing Cozaar to 100 mg as her BP continue to be elevated on the unit. Invega Sustenna 234 mg IM held until 12/07/17 due to prolonged QT. She was cleared by Dr. Ferris to receive her shot on this day. Seroquel was not restarted as patient was improving very well without this medication. I phoned pharmacy 12/06/17 and confirmed this dose, she has been receiving 234 mg IM monthly since September 2017. discharge note: I interviewed patient at bedside to assess continued stability for discharge. Patient is alert and well-oriented to month, year and circumstances. Eye contact is good. Patient feels improved and denies any suicidal thoughts or thoughts to harm others. Affect is calm and appropriately reactive. Patient denies hallucinations and is not responding to internal stimuli. Thought process is clear and coherent. Patient feels comfortable with discharge today and denies any new concerns. Denies acute discomfort or pain. Tolerating medications and denies any issues with them. Delusions and paranoia were not elicited on day of discharge. - Diagnosis (1) Schizoaffective disorder Status: Acute - Final Diagnosis (DSM 5) Condition upon Discharge: GOOD Disposition: HOME/ ROUTINE Follow-up Treatment Plan: The following medications were called in 2 Weeks + 1RF at 12:55 pm on 12/07/17: * Cymbalta 60 mg po daily for anxiety and depression * Ativan 1 mg po TID prn for anxiety * Sonata 5 mg po HS for insomnia * Cogentin 0.5 mg po daily for EPS prophylaxis * Aricept 5 mg po daily invega sustenna 234 mg IM given on 12/06/17. Patient tolerated medication well. Seroquel was never restarted. Patient was improving very well without this medicaiton and reported her sleep was stable and good with sonata. Selected Entries 12/05/17 12/06/17 15:00 09:05 Pulse Rate 88 88 Respiratory 20 Rate Blood Pressure 152/92 H 152/92 H Selected Entries 12/03/17 12/03/17 12/03/17 07:08 08:20 12:44 Temperature 98.0 F Pulse Rate 66 100 H Respiratory 20 Rate Blood Pressure 153/100 H 153/100 H 167/107 H 12/03/17 12/04/17 12/04/17 16:30 06:37 09:47 Temperature 98.4 F Pulse Rate 94 H 104 H 104 H Respiratory 20 Rate Blood Pressure 161/95 H 140/83 140/83 12/04/17 12/05/17 12/05/17 16:30 07:27 08:56 Temperature 98.1 F Pulse Rate 98 H 73 73 Respiratory 20 Rate Blood Pressure 176/108 H 141/92 H * New floor lab results noted this weekend: Laboratory Results - last 24 hr 12/05/17 12/05/17 06:30 06:30 WBC 5.1 RBC 4.65 Hgb 14.1 Hct 42.9 MCV 92.3 MCH 30.3 MCHC 32.9 RDW 13.6 Plt Count 278 MPV 10.5 Sodium 142 Potassium 4.0 Chloride 108 H Carbon Dioxide 23 Anion Gap 15 BUN 21 Creatinine 0.6 L Est GFR ( Amer) > 60 Est GFR (Non-Af Amer) > 60 Random Glucose 113 H Calcium 9.5 Total Bilirubin 0.4 AST 21 ALT 25 Alkaline Phosphatase 59 Total Protein 7.2 Albumin 4.3 Globulin 2.9 Albumin/Globulin Ratio 1.5 Prescriptions/Medication Reconciliation: Paliperidone Palmitate [Invega Sustenna] 234 mg IM Q30D #1 ser Benztropine [Cogentin] 0.5 mg PO DAILY #14 tab DULoxetine [Cymbalta] 60 mg PO DAILY #14 ecc LORazepam [Ativan] 1 mg PO QID PRN #14 tab PRN Reason: Anxiety Zaleplon [Sonata] 5 mg PO HS #14 cap
--- NOTE | 2017-12-07 17:57 | CON ---
Copied To: Garett Givens MD Attending MD: Garett Givens MD DATE: 12/07/2017 SERVICE: Cardiology. REASON FOR CONSULTATION: Cardiac evaluation for QT interval, history of nonobstructive coronary artery disease, status post cardiac catheterization. Needs to be started on medication, Invega, potential for prolongation of the QT interval. BRIEF CLINICAL HISTORY: This is a 62-year-old obese female with past medical history significant for hypertension, CHF, multiple admissions, who came in and then signed out, and then the patient came in again with CHF, underwent cardiac catheterization. Nonobstructive coronary artery disease, history of COPD, history of asthma, history of diabetes, history of obesity, depression, and schizophrenia. Admitted to psych floor with suicidal ideation and now the patient is stable psychologically and possibly going to be discharged today. The question was asked whether the patient can be started on Invega, antipsychotic medication, that potentially cause the prolongation of the QT interval. So far, the patient has normal EKG with normal QT interval. PAST MEDICAL HISTORY: Past history significant for congestive heart failure, hypertension, asthma, diabetes, hypothyroidism, anxiety, depression, schizophrenia, status post cardiac catheterization, nonobstructive coronary artery disease. PREVIOUS CARDIAC WORKUP: As follows: The patient had a cardiac catheterization on 08/27/2016 by me that revealed nonobstructive coronary artery disease, limited only to ostial RCA 40% stenosis, nonischemic cardiomyopathy, ejection fraction of 40-45%, EDP was in the range of 20. At that time, recommendation was made for complete cessation of smoking, cardiac rehab, adjusting medical treatment, weight loss reduction, digoxin, diuretic, ARSLAN and Coreg were started and Primacor was given 48 hours later. The patient had an echocardiography done that showed ejection fraction 35-40% and by cath of 40-55%, and then the patient had a MUGA scan done on 08/28/2016 that revealed normal gated wall motion, ejection fraction of 61%, LVH, normal RV dated 08/28/2016. PAST SURGICAL HISTORY: Significant for hysterectomy done in 1980, history of cholecystectomy, bilateral ankle construction, and back surgery. SOCIAL HISTORY: Active smoker with 2 packs a day, tried to quit, but restarted again. No history of alcohol abuse. History of cocaine use, but clear for the last 7 years. FAMILY HISTORY: Noncontributory. REVIEW OF SYSTEMS: As per HPI. PHYSICAL EXAMINATION: VITAL SIGNS: Height of the patient 5 feet, weight of the patient 193 pounds, body mass index of 38 kg/m2. Temperature is afebrile, heart rate 66, blood pressure 123/72. HEENT: PERRLA. Extraocular muscles intact. NECK: Supple. No carotid bruit. No thyromegaly. CHEST: Clear to auscultation. HEART: S1 and S2 regular. ABDOMEN: Soft. EXTREMITIES: Clubbing and cyanosis negative. LABORATORY DATA: Blood workup as follows; WBC 5.1, hemoglobin 14.3, hematocrit 42.9, and platelet count 278. Chemistry shows sodium 142, potassium 4, chloride 108, carbon dioxide 23, anion gap of 15, BUN 21, creatinine of 0.6. EKG shows normal sinus rhythm. No acute ST-T changes. Normal interval. IMPRESSION: Obesity, diabetes, hypertension, hyperlipidemia, active tobacco abuse, psychiatric disorder, depression, suicidal ideation in the past. Last echocardiogram showed decreased left ventricular function. Cardiac catheterization dated 08/27/2016, nonobstructive coronary artery disease, limited only to ostial right coronary artery as said with decreased left ventricular function. Later on, the patient had a MUGA scan done that shows ejection fraction preserved at 60% and normal right ventricle. 1. In view of normal EKG, normal interval, the patient is cleared from Cardiology point of view to be discharged. 2. For starting antipsychotic medication. No potential for prolonged QT at this time. Thank you, Dr. Ewa More for providing us the opportunity in taking care of the patient, Sena Toribio. Garett Givens MD cc: Ewa More MD
== END 2017-12-07 12:58 | disposition home or self-care (01) | DRG 885 ==
LOC: PSYC 16:46
PROVIDERS: ADMIT Psychiatry & Neurology Psychiatry; ATTEND Psychiatry & Neurology Psychiatry
DX: F25.9 Schizoaffective disorder, unspecified (principal); I42.9 Cardiomyopathy, unspecified; R45.851 Suicidal ideations; F32.89 Other specified depressive episodes; E03.9 Hypothyroidism, unspecified; E11.9 Type 2 diabetes mellitus without complications; E66.9 Obesity, unspecified; E78.5 Hyperlipidemia, unspecified; F17.210 Nicotine dependence, cigarettes, uncomplicated; F43.22 Adjustment disorder with anxiety; I11.0 Hypertensive heart disease with heart failure; I25.10 Atherosclerotic heart disease of native coronary artery without angina pectoris; I45.81 Long QT syndrome; I50.9 Heart failure, unspecified; J44.9 Chronic obstructive pulmonary disease, unspecified; K21.9 Gastro-esophageal reflux disease without esophagitis; Z79.82 Long term (current) use of aspirin; Z79.84 Long term (current) use of oral hypoglycemic drugs; Z79.899 Other long term (current) drug therapy; Z82.49 Family history of ischemic heart disease and other diseases of the circulatory system; Z90.49 Acquired absence of other specified parts of digestive tract; Z90.710 Acquired absence of both cervix and uterus; Z91.5 Personal history of self-harm

== ENCOUNTER 2018-01-16 20:00 | Inpatient (IN) | payer MEDICARE, BC ==
[2018-01-16 20:00] VITALS: PULSE 89
[2018-01-16] MEDS ORDERED: Albuterol-Ipratrop 3 mg / 0.5 (3 ml) UD ONE (20:09)
[2018-01-16 20:10] VITALS: BMI 34.0
[2018-01-16] MEDS ORDERED: Albuterol-Ipratrop 3 mg / 0.5 (3 ml) UD IH STA ×2 (20:15→21:14)
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
[2018-01-16 21:22] LABS: HEMOGLOBIN 13.3 g/dL (12.0-16.0); MEAN CELL VOLUME 92.1 fl (80.0-105.0); MEAN CORPUSCULAR HGB CONC 33.7 g/dl (31.0-37.0); MEAN PLATELET VOLUME 11.3 fl (7.0-11.0); RBC 4.29 10^6/uL (3.5-6.1); RED CELL DISTRIBUTION WIDTH 13.7 % (11.5-14.5); WHITE BLOOD COUNT 7.2 10^3/ul (4.5-11.0)
[2018-01-16 21:31] LABS: INR 0.93; PARTIAL THROMBOPLASTIN TIME 27.3 Seconds (25.1-36.5); PROTHROMBIN TIME 10.6 SECONDS (9.4-12.5)
[2018-01-16] MEDS ORDERED: cefTRIAXone 1 gm 1 GM/100 ML BAG IV STA (21:57)
[2018-01-16] MEDS ORDERED: Azithromycin 500MG/NS 250ml 500 MG/250 ML BAG IV STA (21:57)
[2018-01-16 22:58] LABS: ALB/GLOB RATIO 1.3 (1.1-1.8); ALBUMIN 3.9 g/dL (3.0-4.8); ALT/SGPT 28 U/L (7-56); AST/SGOT 27 U/L (14-36); BLOOD UREA NITROGEN 14 mg/dL (7-21); CALCIUM 9.1 mg/dL (8.4-10.5); GFR NON-AFRICAN AMERICAN > 60
[2018-01-16 23:09] LABS: B-TYPE NATRIURETIC PEPTIDE 58.4 pg/mL (0-450); TROPONIN I < 0.01 ng/mL
[2018-01-16] MEDS: Albuterol-Ipratrop 3 mg / 0.5 (3 ml) UD IH PRN (23:53)
[2018-01-17] MEDS ORDERED: Potassium Chloride 20 mEq ER Tab PO ONE (06:36)
[2018-01-17] MEDS: Budesonide 0.5 mg/2 ml Inhal Susp UD IH SCH ×2 (07:28→20:00)
[2018-01-17] MEDS: Albuterol-Ipratrop 3 mg / 0.5 (3 ml) UD IH SCH ×3 (07:28→20:00)
--- NOTE | 2018-01-17 07:32 | CON ---
DATE: 01/17/2018 PULMONARY CONSULTATION REASON FOR CONSULTATION: Chronic obstructive pulmonary disease. REFERRING PHYSICIAN: Avelino Antoine DO. HISTORY: History is obtained via extensive discussion with the nursing staff. I have also reviewed the chart at length, and discussed the case with the patient at length. The patient is a 62-year-old female, with past medical history significant for asthma, chronic obstructive pulmonary disease, coronary artery disease, cardiomyopathy, diabetes mellitus, who presents to [facility] with a 4-day history of worsening shortness of breath at rest, dyspnea on exertion, cough and sputum production. There is no history of chest pain, coughing up of blood, or chest pain - made worse with deep respirations. There is no history of temperatures, chills or infectious exposure. There is no history of night sweats, weight loss or appetite change prior to the above events. No history of leg or calf pains. No history of syncope or diaphoresis. No history of recent travel or trauma. REVIEW OF SYSTEMS: No history of nausea, vomiting or diarrhea. No acute urinary symptoms. No new neurologic complaints. Rest of the review of systems is negative. ALLERGIES: NO KNOWN ALLERGIES. SOCIAL HISTORY: Positive for extensive tobacco usage - still smokes. No alcohol. FAMILY HISTORY: No inheritable diseases. HOME MEDICATIONS: Include Glucophage, Norvasc, Seroquel, Cozaar, Ativan, TriCor, Pepcid, Aricept, Cymbalta, Cogentin, Glucophage, Protonix, Sonata and Ecotrin. PHYSICAL EXAMINATION: GENERAL: The patient is not short of breath at rest. She is not using accessory muscles for breathing. VITAL SIGNS: Temperature is 98.2, pulse on the monitor is 94, respirations 18, blood pressure 132/69. Oxygen saturation on nasal cannula is 92%. HEENT: Normocephalic, atraumatic. No JVD. CARDIOVASCULAR: Positive S1, S2. No S3 gallop. LUNGS: Decreased breath sounds at the bases. Scattered rhonchi and wheezing bilaterally. EXTREMITIES: Mild edema. No cyanosis, no clubbing. Calves are nontender to palpation. GI: Abdomen is soft, nontender and nondistended. Bowel sounds are positive. SKIN: No acute rash. NEUROLOGIC: Exam limited at the present time. PERTINENT LABORATORY DATA: Chest x-ray was done yesterday and reviewed. I do not appreciate any new or significant changes. CBC: White count 7.2K, hemoglobin 13.3, hematocrit 39.5, platelets of 243,000. Complete metabolic profile: Potassium 3.5, glucose 130. Rest of the metabolic profile is within normal limits. IMPRESSION: 1. Acute bronchitis. 2. Asthma. 3. Chronic obstructive pulmonary disease. 4. Coronary artery disease. 5. Cardiomyopathy. PLAN: Again, I did discuss the case with the night nurse at length. I have also reviewed the chart at length, and discussed the case with the patient at length. The patient presents to [facility] with a 4-day history of worsening pulmonary symptoms. As above, I did review the chest x-ray as noted. I do not appreciate any new or significant changes. I have also reviewed the laboratory data. There is no leukocytosis noted. On physical exam, the patient is in [id number] bronchospasm. I will continue with the current nebulizer treatments and intravenous steroids for now. I will also add inhaled Pulmicort this morning. The patient is on antibiotic therapy. There is no history of temperatures. The patient does feel better this morning and is clinically improved. Additional pulmonary intervention will be based on the clinical status of the patient. I will discuss the above with Dr. Antoine. Thank you very much for this pulmonary consultation. Raciel Guevara MD EL
[2018-01-17 08:38] LABS: ALB/GLOB RATIO 1.4 (1.1-1.8); ALBUMIN 3.9 g/dL (3.0-4.8); ALT/SGPT 28 U/L (7-56); AST/SGOT 24 U/L (14-36); BLOOD UREA NITROGEN 13 mg/dL (7-21); CALCIUM 9.6 mg/dL (8.4-10.5); GFR NON-AFRICAN AMERICAN > 60
--- NOTE | 2018-01-17 08:41 | RAD ---
Date of service: 01/16/2018 HISTORY: Shortness of breath COMPARISON: 11/30/2017 FINDINGS: LUNGS: No active pulmonary disease. PLEURA: No significant pleural effusion identified, no pneumothorax apparent. CARDIOVASCULAR: No radiographic findings to suggest acute or significant cardiovascular disease. OSSEOUS STRUCTURES: No significant abnormalities. VISUALIZED UPPER ABDOMEN: Normal. OTHER FINDINGS: None. IMPRESSION: No active disease. No significant interval change compared to the prior examination(s).
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
[2018-01-17] MEDS ORDERED: PALIPERIDONE PALMITATE 234 MG IM SCH (10:00)
[2018-01-17] MEDS ORDERED: Azithromycin 500MG/NS 250ml 500 MG/250 ML BAG IVPB SCH (10:00)
[2018-01-17] MEDS: MethylPREDNISolone 40 mg Vial IVP SCH ×3 (10:14→22:57)
[2018-01-17] MEDS: cefTRIAXone 1 gm 1 GM/100 ML BAG IVPB SCH (10:16)
--- NOTE | 2018-01-17 19:54 | CARD ---
APPROVED REPORT Date of service: 01/16/2018 EKG Measurement Heart [id number] <Conclusion> Sinus tachycardia Minimal voltage criteria for LVH, may be normal variant Borderline ECG
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
[2018-01-18] MEDS: Albuterol-Ipratrop 3 mg / 0.5 (3 ml) UD IH SCH ×4 (01:31→20:30)
[2018-01-18] MEDS: MethylPREDNISolone 40 mg Vial IVP SCH ×2 (06:35→21:32)
[2018-01-18 07:33] LABS: HEMOGLOBIN 13.9 g/dL (12.0-16.0); MEAN CELL VOLUME 93.4 fl (80.0-105.0); MEAN CORPUSCULAR HEMOGLOBIN 30.3 pg (25.0-35.0); MEAN CORPUSCULAR HGB CONC 32.5 g/dl (31.0-37.0); MEAN PLATELET VOLUME 10.9 fl (7.0-11.0); RBC 4.58 10^6/uL (3.5-6.1); RED CELL DISTRIBUTION WIDTH 13.6 % (11.5-14.5); WHITE BLOOD COUNT 9.4 10^3/ul (4.5-11.0)
[2018-01-18] MEDS: Budesonide 0.5 mg/2 ml Inhal Susp UD IH SCH ×2 (07:42→20:30)
[2018-01-18 07:55] LABS: ALB/GLOB RATIO 1.3 (1.1-1.8); ALBUMIN 3.6 g/dL (3.0-4.8); ALT/SGPT 27 U/L (7-56); AST/SGOT 22 U/L (14-36); BLOOD UREA NITROGEN 15 mg/dL (7-21); CALCIUM 9.7 mg/dL (8.4-10.5); GFR NON-AFRICAN AMERICAN > 60
--- NOTE | 2018-01-18 07:55 | PN ---
DATE: 01/18/2018 PULMONARY NOTE SUBJECTIVE: The patient appears comfortable this morning. She is not short of breath at rest. OBJECTIVE: VITAL SIGNS: Temperature is 98.2, pulse 84, respirations 18, blood pressure 125/68. Oxygen saturation on nasal cannula is 93%. HEENT: Normocephalic, atraumatic. No JVD. CARDIOVASCULAR: Positive S1, S2. No S3 gallop. LUNGS: Decreased breath sounds at the bases. Less rhonchi. Less wheezing. EXTREMITIES: Mild edema. No cyanosis, no clubbing. Calves are nontender to palpation. GI: Abdomen is soft, nontender and nondistended. Bowel sounds are positive. SKIN: No acute rash. NEUROLOGIC: Exam limited at the present time. IMPRESSION: 1. Acute bronchitis. 2. Asthma. 3. Chronic obstructive pulmonary disease. 4. Coronary artery disease. 5. Cardiomyopathy. PLAN: The patient appears comfortable this morning. She is not short of breath at rest. The patient does state to feeling better overall. I did discuss the case with the night nurse at length. The night nurse stated the patient had a good night. On physical exam, her bronchospasm is less. In addition, the alveolar-arterial gradient is also less. I will continue with the current nebulizer treatments and decrease the intravenous steroids this morning. The patient remains on antibiotic therapy. There are no temperatures noted. There is no leukocytosis. Clinical status of the patient is definitely improved - compared to the initial presentation. The patient is advised to be out of bed as much as possible. I will discuss the above with Dr. Antoine. Raciel Guevara MD EL
[2018-01-19] MEDS: Albuterol-Ipratrop 3 mg / 0.5 (3 ml) UD IH SCH ×4 (02:24→20:00)
--- NOTE | 2018-01-19 05:09 | PN ---
Copied To: Ewa More MD Attending MD: Ewa More MD DATE: 01/18/2018 FOLLOWUP NOTE SUBJECTIVE: The patient was followed up today. The patient presented to be sleepy, easily abusable. The patient reported that she feels better. The patient reported that her breathing is better. At the same time, the patient is still smoking. This sheet writer found cigarettes as well as meteorology instructor in her chart. The patient does not want to quit. Besides that, the patient denied being depressed. Denied thoughts of harming herself or others. The patient said [place] [facility]. The patient does not want to have any boarding home referrals in regards of Invega Sustenna. The patient said that she is getting that injection on each and every 12th of the months. The patient reported that she was compliant with all of her medications. PHYSICAL EXAMINATION: VITAL SIGNS: Stable. Temperature 97.8, pulse is 94, blood pressure 126/68, respirations 18, and oxygen saturation is 93%. MEDICATIONS: Reviewed. LABORATORY DATA: Reviewed. MENTAL STATUS EXAMINATION: The patient presented to be sleepy, easily arousable. Hygiene is good. Affect constricted. Mood described as okay. Thought process: Faxon. Thought content: The patient denied hearing voices, denied seeing things. Denied paranoid ideation. The patient denied thoughts of harming herself or others. Denied intents or plan. Insight and judgment seem to be fair. Impulses are well controlled. IMPRESSION: As per history, schizoaffective disorder, rule out schizophrenia, history of polysubstance abuse, history of state hospitalizations. PLAN: All medications confirmed and resumed. Next injection is on , but we will double check with [facility]. Meanwhile, continue current management. We will follow up and advise accordingly. Pt is not in any acute distress, will f/u every other day. Thank you very much for letting me participate in care of your patient. Ewa More MD EL
[2018-01-19 07:05] LABS: HEMOGLOBIN 13.9 g/dL (12.0-16.0); MEAN CORPUSCULAR HEMOGLOBIN 30.3 pg (25.0-35.0); MEAN CORPUSCULAR HGB CONC 32.6 g/dl (31.0-37.0); MEAN PLATELET VOLUME 10.7 fl (7.0-11.0); RBC 4.59 10^6/uL (3.5-6.1); RED CELL DISTRIBUTION WIDTH 13.5 % (11.5-14.5); WHITE BLOOD COUNT 9.5 10^3/ul (4.5-11.0)
[2018-01-19 07:14] LABS: ALB/GLOB RATIO 1.3 (1.1-1.8); ALT/SGPT 19 U/L (7-56); AST/SGOT 19 U/L (14-36); BLOOD UREA NITROGEN 17 mg/dL (7-21); CALCIUM 9.5 mg/dL (8.4-10.5); GFR NON-AFRICAN AMERICAN > 60
[2018-01-19] MEDS: Budesonide 0.5 mg/2 ml Inhal Susp UD IH SCH ×2 (07:14→20:00)
--- NOTE | 2018-01-19 07:49 | PN ---
DATE: 01/19/2018 SUBJECTIVE: I saw her resting comfortably in bed. She still has a very bad bronchospasm and barking cough. I discussed it with the legal contracts specialist and he wants her on one more day of Solu-Medrol. She is on Cisterna, Aricept, Ativan, Cogentin, Cozaar, Cymbalta, DuoNebs, Ecotrin, Glucophage, Nicoderm, Norvasc, Pepcid, Pulmicort, Rocephin, Seroquel, Solu-Medrol, Sonata, Tessalon Perles, Tricor and Zithromax. PHYSICAL EXAMINATION: VITAL SIGNS: 98.3 temp, 93 pulse, 157/85 blood pressure, 20 respiratory rate, 94% O2 sat on 2 L. HEENT: Her head is atraumatic, normocephalic. HEART: Regular rate. LUNGS: Decreased breath sounds. She has a barking bronchospasm cough. ABDOMEN: Soft, obese, nontender. EXTREMITIES: No edema. LABORATORY DATA: She has a 9.5 white count, 13.9 hemoglobin, 42.7 hematocrit with 298 platelets. She has a 139 sodium, potassium is 4.1, BUN is 17, creatinine 0.4, GFR is greater than 60, sugar is 185, calcium is 9.5, total bili is 0.3, AST is 19, ALT is 19, alk phos 83, total protein is 7. ASSESSMENT AND PLAN: So Pulmonary wants to keep her another day, possibly more because of her asthmatic bronchitis and her bad bronchospasm and if not breaking, he says. So we will see how she does tomorrow, take it day by day. Check her labs tomorrow. Continue with steroids. Avelino Antoine DO
--- NOTE | 2018-01-19 07:50 | PN ---
DATE: 01/19/2018 SUBJECTIVE: The patient appears comfortable this morning. She is not short of breath at rest. PHYSICAL EXAMINATION: VITAL SIGNS: (Last noted in the computer): Temperature is 98.3, pulse is 93, respirations 18/20, blood pressure 157/85. Oxygen saturation on nasal cannula is 94%. HEENT: Normocephalic, atraumatic. No JVD. CARDIOVASCULAR: Positive S1, S2. No S3 gallop. LUNGS: Improved breath sounds at the bases. Minimal/less rhonchi. Minimal/less wheezing. EXTREMITIES: Mild edema. No cyanosis, no clubbing. Calves are nontender to palpation. GI: Abdomen is soft, nontender and nondistended. Bowel sounds are positive. SKIN: No acute rash. NEUROLOGIC: Exam limited at the present time. IMPRESSION: 1. Acute bronchitis. 2. Asthma. 3. Chronic obstructive pulmonary disease. 4. Coronary artery disease. 5. Cardiomyopathy. PLAN: The patient appears comfortable this morning. She is not short of breath at rest. She does state to a persistent cough. However, she does state to feeling better overall. I did discuss the case with the night nurse at length. The night nurse stated that the patient had a good night. On physical exam, her bronchospasm is less. In addition, the alveolar-arterial gradient is also less. I will continue the current nebulizer treatments and low-dose intravenous steroids (decreased yesterday) for now. Hopefully, we can change to oral therapy in the morning. The patient remains on antibiotic therapy. There are no temperatures noted. There is no leukocytosis. Clinical status of the patient is definitely improved - compared to the initial presentation. I will discuss the above with Dr. Antoine. Raciel Guevara MD MTDD
--- NOTE | 2018-01-19 08:42 | PN ---
DATE: 01/18/2018 SUBJECTIVE: She slept poor last night. She is coughing too much. She is still bringing up phlegm. She is having some wheezing. She is short of breath from time to time. MEDICATIONS: She is on Aricept, Ativan, Cogentin, Cozaar, Cymbalta, DuoNebs, Ecotrin, Glucophage, Nicoderm, Norvasc, Pepcid, Pulmicort, Rocephin IV, Seroquel. Solu-Medrol, she is on 30 IV every 12. Sonata, TriCor, and Zithromax IV. PHYSICAL EXAMINATION: VITAL SIGNS: She has a 98.2 temp, 84 pulse, 125/68 blood pressure, 18 respiratory rate, 93% O2 sat on 2 L nasal cannula. HEENT: Head is atraumatic, normocephalic. Throat is moist. NECK: Supple. HEART: Regular rate. LUNGS: Decreased breath sounds. Occasional wheeze, changes with cough. Some congestion. She is coughing up a lot. ABDOMEN: Soft, obese, nontender. Positive bowel sounds. EXTREMITIES: No edema. LABORATORY DATA: She has a 9.4 white count, 13.9 hemoglobin, 42.8 hematocrit with 279 platelets. She has a 143 sodium, potassium 4.2, BUN is 15, creatinine 0.4, GFR is greater than 60, sugar is 142, calcium 9.7, total bili is 0.3, AST is 22, ALT is 27, alk phos 81, total protein 6.4 and the troponin I was less than 0.01 and BNP was 58.4. So far, no growth in blood cultures. ASSESSMENT AND PLAN: She was seen by Dr. Guevara, the rail technician and by Psychiatry. She has acute asthmatic bronchitis, chronic obstructive pulmonary disease, coronary artery disease. She has cardiomyopathy, a little more comfortable, still coughing. We are decreasing the Solu-Medrol. I am going to add some Tessalon Perles for the cough. We will decrease the Solu-Medrol. I am hoping maybe tomorrow we can discharge her if she shows more improvement. We will continue with aggressive treatment and care on [facility] Toribio. Avelino Antoine DO [facility] # [id number] EL
[2018-01-19] MEDS: Albuterol-Ipratrop 3 mg / 0.5 (3 ml) UD IH PRN (10:27)
[2018-01-19] MEDS: cefTRIAXone 1 gm 1 GM/100 ML BAG IVPB SCH (10:55)
[2018-01-19] MEDS: MethylPREDNISolone 40 mg Vial IVP SCH ×2 (10:57→21:11)
[2018-01-20] MEDS: Albuterol-Ipratrop 3 mg / 0.5 (3 ml) UD IH SCH ×4 (02:50→19:38)
[2018-01-20] MEDS: Budesonide 0.5 mg/2 ml Inhal Susp UD IH SCH ×2 (07:20→19:38)
--- NOTE | 2018-01-20 07:32 | PN ---
DATE: 01/20/2018 PULMONARY NOTE SUBJECTIVE: The patient appears comfortable this morning. She is not short of breath at rest. PHYSICAL EXAMINATION: VITAL SIGNS: Last temperature recorded is 98.1, pulse this morning is approximately 80, respiratory rate is 18, blood pressure is 139/90. Oxygen saturation on room air is 96%. HEENT: Normocephalic, atraumatic. No JVD. CARDIOVASCULAR: Positive S1, S2. No S3 gallop. LUNGS: Much less/minimal rhonchi. No wheezing this morning. EXTREMITIES: Mild edema. No cyanosis. No clubbing. Calves are nontender to palpation. GI: Abdomen is soft, nontender and nondistended. Bowel sounds are positive. SKIN: No acute rash. NEUROLOGIC: Limited at the present time. IMPRESSION: 1. Acute bronchitis. 2. Asthma. 3. Chronic obstructive pulmonary disease. 4. Coronary artery disease. 5. Cardiomyopathy. PLAN: The patient appears comfortable this morning. She is not short of breath at rest. Her cough is much less. She still does complain of dyspnea on exertion. However, she also states to feeling much better overall. I did discuss the case with the night nurse at length. The night nurse stated that the patient had a very good night. On physical exam, her bronchospasm continues to slowly resolve. In addition, the alveolar arterial gradient also continues to resolve. I will continue with the current nebulizer treatments and decrease the intravenous steroids this morning. Hopefully, we can change to oral therapy in the morning. The patient remains on antibiotic therapy. There are no temperatures noted. There is no leukocytosis. Clinical status of the patient is significantly improved overall. I will discuss the above with Dr. Antoine. Raciel Guevara MD [facility]TDKarthik
[2018-01-20 08:26] LABS: HEMOGLOBIN 15.1 g/dL (12.0-16.0); MEAN CELL VOLUME 92.5 fl (80.0-105.0); MEAN CORPUSCULAR HEMOGLOBIN 30.7 pg (25.0-35.0); MEAN CORPUSCULAR HGB CONC 33.2 g/dl (31.0-37.0); MEAN PLATELET VOLUME 10.8 fl (7.0-11.0); RBC 4.92 10^6/uL (3.5-6.1); RED CELL DISTRIBUTION WIDTH 13.3 % (11.5-14.5)
[2018-01-20 08:37] LABS: BLOOD UREA NITROGEN 18 mg/dL (7-21); GFR NON-AFRICAN AMERICAN > 60
[2018-01-20 08:38] LABS: ALB/GLOB RATIO 1.3 (1.1-1.8); ALBUMIN 4.5 g/dL (3.0-4.8); ALT/SGPT 23 U/L (7-56); AST/SGOT 20 U/L (14-36)
[2018-01-20] MEDS: MethylPREDNISolone 40 mg Vial IVP SCH ×2 (10:01→21:34)
[2018-01-20] MEDS: cefTRIAXone 1 gm 1 GM/100 ML BAG IVPB SCH (10:07)
--- NOTE | 2018-01-20 18:15 | PN ---
DATE: 01/20/2018 SUBJECTIVE: She is in the hospital with a bad asthmatic bronchitis. She is barking and she is having wheezes here and there with congestion. The train dispatcher though wants to keep her one more day on her Solu-Medrol, he dropped it down to 20 every 12 hours better than yesterday, not enough. She is on Sustenna, Aricept, Ativan, Cogentin, Cozaar, Cymbalta, DuoNeb, Ecotrin, Glucophage, NicoDerm, Norvasc, Pepcid, Pulmicort, Rocephin IV, Seroquel, Solu-Medrol, Sonata, Tessalon Perles, TriCor, and Zithromax. PHYSICAL EXAMINATION: VITAL SIGNS: Temperature 98.5, 105 pulse, , 139/90 blood pressure, 20 respiratory rate, 96% O2 sat on room air. HEENT: Head is atraumatic, normocephalic. HEART: Regular rate. LUNGS: Decreased breath sounds, occasional wheeze, barking cough, bronchospasm, better than yesterday, but I agree with the train dispatcher may be needed a little more Solu-Medrol. ABDOMEN: Soft, obese, and nontender. Positive bowel sounds. EXTREMITIES: No edema. LABORATORY DATA: She has 8 white cell count, 15.1 hemoglobin, 45.5 hematocrit with 288 platelets. She has 139 sodium, potassium 4.4. BUN 18, creatinine 0.4. GFR is greater than 60. Sugar is 233. Calcium is 10. Total bili is 0.4, AST is 20, ALT is 23, alkaline phosphatase 93. Total protein 7.9. ASSESSMENT AND PLAN: She has been seen by psychiatrist and Pulmonary. There is still too much bronchospasm, slowly to resolve and the train dispatcher wants her to stay one more day for IV Solu-Medrol. Discussed with her at length. We will order labs tomorrow and they asked her to walk around the floor more. She is lying in bed all day long. Avelino Antoine DO EL
--- NOTE | 2018-01-20 22:53 | PN ---
DATE: 01/20/2018 SUBJECTIVE: The patient was followed up. The patient presented to be alert and oriented, pleasant, cooperative. The patient denied feeling depressed. Denied thoughts of harming herself or others. Patient reports that she is compliant with the medication. Next injection has to be on 02/04. mend worker called to [facility]. This information confirmed. The patient denied hearing voices, denied seeing things. Vital signs are stable. Temperature 98.4, pulse is 104, blood pressure 151/94, respiration 21, oxygen saturation is 97. Medications reviewed. The patient is on DuoNeb, Norvasc. The patient is on Zithromax, Cogentin, Pulmicort. The patient is on cefpodoxime, Aricept, Cymbalta 60 mg daily, Pepcid, TriCor, Ativan, Cozaar, Glucophage, Solu-Medrol, Nicoderm. The patient is on Seroquel 400 mg at the nighttime, Sonata 5 mg as needed. Labs reviewed. Microbiology reviewed. Reports reviewed. MENTAL STATUS EXAMINATION: The patient presented to be alert and oriented, pleasant, cooperative. Mood described as fine. Affect was flat. Thought process, coherent and goal directed. Thought content, the patient denied visual, auditory or tactile hallucinations. Denied paranoid ideation. The patient denied thoughts of harming herself or others. Denied intent or plan. Insight and judgment seems to be fair. Impulses are well controlled. IMPRESSION: As per history, schizoaffective disorder. The patient has multiple medical problems, chronic obstructive pulmonary disease which led the patient to medical hospitalization. PLAN: The patient has all of her medications. The patient's Invega Sustenna scheduled on 02/04. The patient has followup appointment at [facility]. The patient lives in [facility]. The patient was asking about boarding home. This job specification writer will provide information about boarding homes in the area. Meanwhile, the patient is not in any imminent danger to self or others. Should you have any questions, give me a call back. This job specification writer will sign off the information about boarding homes will be provided by students tomorrow at the morning time. Thank you very much for letting me to participate in care of your patient. Ewa More MD
[2018-01-21] MEDS: Albuterol-Ipratrop 3 mg / 0.5 (3 ml) UD IH SCH ×3 (01:53→13:48)
[2018-01-21 07:07] LABS: HEMOGLOBIN 16.3 g/dL (12.0-16.0); MEAN CORPUSCULAR HGB CONC 33.7 g/dl (31.0-37.0); MEAN PLATELET VOLUME 11.1 fl (7.0-11.0); RBC 5.25 10^6/uL (3.5-6.1); RED CELL DISTRIBUTION WIDTH 13.1 % (11.5-14.5)
[2018-01-21 07:30] LABS: ALB/GLOB RATIO 1.4 (1.1-1.8); ALBUMIN 4.8 g/dL (3.0-4.8); ALT/SGPT 20 U/L (7-56); AST/SGOT 19 U/L (14-36); BLOOD UREA NITROGEN 22 mg/dL (7-21); CALCIUM 10.2 mg/dL (8.4-10.5); GFR NON-AFRICAN AMERICAN > 60
[2018-01-21] MEDS: Budesonide 0.5 mg/2 ml Inhal Susp UD IH SCH (07:31)
[2018-01-21 08:05] VITALS: O2SAT 95
--- NOTE | 2018-01-21 08:15 | PN ---
DATE: 01/21/2018 PULMONARY NOTE SUBJECTIVE: The patient appears very comfortable this morning. She is not short of breath at rest. She states to feeling much better overall. OBJECTIVE: VITAL SIGNS: Last temperature recorded is 98.3, pulse this morning 88, respiratory rate 18, blood pressure 138/81. Oxygen saturation on room air is 95%. HEENT: Normocephalic, atraumatic. No JVD. CARDIOVASCULAR: Positive S1, S2. No S3 gallop. LUNGS: Clear bilaterally this morning. EXTREMITIES: Mild edema. No cyanosis, no clubbing. Calves are nontender to palpation. GI: Abdomen is soft, nontender, nondistended. Bowel sounds are positive. SKIN: No acute rash. NEUROLOGIC: Exam limited at the present time. IMPRESSION: 1. Acute bronchitis. 2. Asthma. 3. Chronic obstructive pulmonary disease. 4. Coronary artery disease. 5. Cardiomyopathy. PLAN: The patient appears very comfortable this morning. She is not short of breath at rest. Her cough is much less. Her dyspnea on exertion has primarily resolved. She does state to feeling much, much better overall. I did discuss the case with the night nurse at length. The night nurse stated that the patient had a very good night. On physical exam, her lungs are now clear. In addition, there is no significant alveolar-arterial gradient. I will continue with the current nebulizer treatments and change to oral steroids this morning. The patient remains on oral antibiotic therapy. There are no temperatures noted. There is no leukocytosis. Clinical status of the patient is significantly improved overall. I will discuss the above with Dr. Antoine. Raciel Guevara MD MTDD
[2018-01-21] MEDS ORDERED: Cefpodoxime (Vantin) 200 mg Tab PO SCH (10:00)
[2018-01-21 14:40] VITALS: TEMP 98.4
[2018-01-21 14:43] VITALS: BP 165/113; PULSE 103; RESP 20
--- NOTE | 2018-01-21 18:41 | CP.PCM.PCO ---
Physician Communication Note - Physician Communication Note Physician Communication Note: pt was d/c
--- NOTE | 2018-01-22 10:34 | DS ---
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 She is on Aricept, Ativan, Cogentin, Cozaar, Cymbalta, DuoNeb, Ecotrin, Glucophage, potassium, Nicoderm. She was told not to smoke anymore. A 20th time I spoke with her about quitting smoking where I really try to emphasize it and she lives in the hope that she will quit smoking. Norvasc, Sustenna, Pepcid, she is on prednisone 30 for three days, 20 for three days, 10 for three days and stop, Pulmicort, Seroquel, Sonata, Tessalon Perles, TriCor and Zithromax for three more days. I will be following up with her in the next three days in my office on Wednesday, Wednesday and Wednesday. PHYSICAL EXAMINATION: VITAL SIGNS: She has a 98.7 temp, 93 pulse, 123/66 blood pressure, 20 respiratory rate, 95% O2 saturation on room air. HEENT: Head: Atraumatic, normocephalic. HEART: Regular rate. LUNGS: Much better, decreased breath sounds, does have a bark. No wheeze, rhonchi or rales. Much improved. EXTREMITIES: No edema. ABDOMEN: Soft, nontender. Positive bowel sounds. LABORATORY DATA: She has 139 sodium, potassium 4.6, BUN 22, creatinine 0.6, GFR is greater than 60. Sugar is 201. Calcium is 10.2. Total bili is 0.4. AST is 19, ALT is 20, alk phos 97, total protein is 8.2. She has a 9 white count, 16.3 hemoglobin, 48.3 hematocrit with 358 platelets. ASSESSMENT AND PLAN: She was seen by Pulmonology and Psychiatry and she is being discharged to outpatient follow up with me in the next 3 to 4 days, next week. She will have the medications with the pharmacy. She is here for acute asthmatic bronchitis. Avelino Antoine DO [facility]
== END 2018-01-21 15:07 | disposition home or self-care (01) | DRG 191 ==
LOC: ED 20:00 → ERH 22:03 → 2RNO 01-17 00:22 → OBSVTOIN 01-17 09:05 → 5RSO 01-18 16:49
PROVIDERS: ADMIT Family Medicine; ATTEND Family Medicine
DX: J44.0 Chronic obstructive pulmonary disease with (acute) lower respiratory infection (principal); I42.9 Cardiomyopathy, unspecified; J20.9 Acute bronchitis, unspecified; J44.1 Chronic obstructive pulmonary disease with (acute) exacerbation; E11.9 Type 2 diabetes mellitus without complications; I25.10 Atherosclerotic heart disease of native coronary artery without angina pectoris; F25.9 Schizoaffective disorder, unspecified; F31.9 Bipolar disorder, unspecified; E03.9 Hypothyroidism, unspecified; I11.0 Hypertensive heart disease with heart failure; I50.9 Heart failure, unspecified; F41.9 Anxiety disorder, unspecified; F17.210 Nicotine dependence, cigarettes, uncomplicated; Z79.84 Long term (current) use of oral hypoglycemic drugs